=== PATIENT | male | born 1940 | race Caucasian/White ===

== ENCOUNTER 2018-09-22 05:51 | Emergency (ER) | payer MEDICARE, OTHER ==
[~2018-09-22] VITALS: Ht 172.7 cm; Wt 70.3 kg
--- OUTSIDE RECORDS SUMMARY | 2018-09-22 05:54 | XMS REPORT | Clinical Summary ---
Author Author [facility] Organization [facility] Address Unknown Phone Unavailable Care Team Providers Care Hospitality Services Manager Name Role Phone Asked, No Pcp PCP Unavailable Allergies No Known Allergies Medications No known medications Active Problems Problem Noted Date Chronic back pain greater than 3 months duration 12/15/2017 Encounters Care Team Description Date Type Specialty Matthew Milan III, MD Chronic back pain greater than 3 months duration (Primary Dx) 12/15/2017 Office Visit Orthopedic Surgery after 09/21/2017 Social History Date Tobacco Use Types Packs/Day Years Used Never Assessed Sex Assigned at Date Recorded Not on file Industry Job Start Date Occupation Not on file Not on file Not on file Travel End Travel History Travel Start No recent travel history available. Last Filed Vital Signs Time Taken Vital Sign Reading - Blood Pressure - - Pulse - - Temperature - - Respiratory Rate - - Oxygen Saturation - - Inhaled Oxygen - Concentration 12/15/2017 4:31 PM CDT Weight 67.1 kg (148 lb) 12/15/2017 4:31 PM CDT Height 172.7 cm (5' 8") 12/15/2017 4:31 PM CDT Body Mass Index 22.5 Plan of Treatment Health Maintenance Due Date Last Done Comments SHINGLES VACCINES (#1) 1992 65+ PNEUMOCOCCAL VACCINE 2007 06/02/2017 (2 of 2 - PPSV23) PNEUMOCOCCAL 2007 POLYSACCHARIDE VACCINE AGE 65 AND OVER INFLUENZA VACCINE 01/27/2018 Implants Device Identifier Shelf Expiration Date Model / Serial / Lot Implanted Type 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 er 10/26/2017 [id number] / / [id number] Device Vasclr Clsr Vasoactive Cardiovasc N/A: N/A Intstnl Peptd 6fr Angio-Seal - ular [id number] Implants Implanted: 03/20/2017 (Quantity not on file) [id number] / / Catheter Angiography Diag [facility] Surgical N/A: N/A 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 Ii 5fr 100cm - Implants; PERIPHERAL [id number] Expanders; INTERVENTI Implanted: 03/20/2017 (Quantity not Extenders; ON on file) Surgical VASCULAR Wires ERICA Procedures Comments Procedure Name Priority Date/Time Associated Diagnosis XR LUMBAR SPINE COMPLETE Routine 12/15/2017 Chronic back pain greater 4+ VW 4:52 PM CDT than 3 months duration after 09/21/2017 Results * XR Lumbar Spine Complete 4+ Vw (12/15/2017 4:52 PM CDT) Narrative Performed At [facility] Lumbar spine series with flexion-extension: There is now a grade 1- slip of L3 and L4 and loss of disc height 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 Performing Organization [facility] Phone Number [facility] [id number] [place] [address] after 09/21/2017 Insurance Payer Benefit Subscriber ID Type Phone Address Plan / Group UHC MEDICARE UHC xxxxxxxxx O MEDICARE HMO/PPO Advance Directives Patient has advance care planning documents on file. For more information, sam sandy contact: Jacek Duke [address] [place] [address]
--- OUTSIDE RECORDS SUMMARY | 2018-09-22 05:57 | XMS REPORT | Continuity of Care Document ---
Author Author [facility] Interface Address Unknown Phone Unavailable Problems Problem Status Onset Date Classification Date Reported Comments Source SLURRED SPEACH/PNEUMONIA Active 06/01/2017 [facility] FALL Active 06/01/2017 [facility] SYNCOPE AND COLLAPSE, TRANSIENT HYPOTENS Active 11/04/2016 [facility] SYNCOPE Active 11/04/2016 [facility] AMS Active 10/07/2016 [facility] CHANGE IN MENTAL STATUS, ACCIDENTAL OVER Active 10/07/2016 [facility] LOW BLOOD PRESSURE Active 09/15/2016 [facility] ATYPICAL SYNCOPE, UPPER GI BLEED Active 09/15/2016 [facility] RADICULOPATHY Active 10/17/2015 [facility] S06.5X0A - 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 [facility] Orthostatic hypotension<sup>8, 9</sup> Active 11/03/2014 Problem 08/30/2018 Data migrated from [employer] on 11/28/14. [facility] Dizziness<sup>6</sup> Active 05/09/2014 Problem 06/05/2017 Data migrated from [employer] on 11/25/14. [facility] Dizziness<sup>6</sup> Active 05/09/2014 Problem 08/30/2018 Data migrated from [employer] on 11/25/14. [facility] Cardiac pacemaker<sup>3</sup> Active 04/24/2014 Problem 06/05/2017 Data migrated from [employer] on 11/25/14. [facility] Chronic obstructive lung disease<sup>5</sup> Active 04/24/2014 Problem 06/05/2017 Data migrated from [employer] on 11/25/14. [facility] Cardiac pacemaker<sup>3</sup> Active 04/24/2014 Problem 08/30/2018 Data migrated from [employer] on 11/25/14. [facility] Chronic obstructive lung disease<sup>5</sup> Active 04/24/2014 Problem 08/30/2018 Data migrated from [employer] on 11/25/14. [facility] UNK Active 04/03/2014 [facility] V76.51 Active 04/03/2014 [facility] Benign prostatic hyperplasia<sup>2</sup> Active 11/25/2013 Problem 06/05/2017 Data migrated from [employer] on 11/25/14. [facility] Benign prostatic hyperplasia<sup>2</sup> Active 11/25/2013 Problem 08/30/2018 Data migrated from [employer] on 11/25/14. [facility] Anxiety disorder<sup>1</sup> Active 03/02/2013 Problem 06/05/2017 Data migrated from [employer] on 11/25/14. [facility] Osteoarthritis<sup>10</sup> Active 03/02/2013 Problem 06/05/2017 Data migrated from [employer] on 11/25/14. [facility] Anxiety disorder<sup>1</sup> Active 03/02/2013 Problem 08/30/2018 Data migrated from [employer] on 11/25/14. [facility] Osteoarthritis<sup>10</sup> Active 03/02/2013 Problem 08/30/2018 Data migrated from [employer] on 11/25/14. [facility] Chronic back pain<sup>4</sup> Active 06/29/1957 Problem 06/05/2017 Data migrated from [employer] on 11/25/14. [facility] Chronic back pain<sup>4</sup> Active 06/29/1957 Problem 08/30/2018 Data migrated from [employer] on 11/25/14. [facility] Cardiac pacemaker Resolved Problem 10/21/2015 [facility] COPD Resolved Problem 10/21/2015 [facility] Hyperlipidemia<sup>7</sup> Active Problem 10/21/2015 Data migrated from [employer] on 11/25/14. [facility] TIA Resolved Problem 10/21/2015 [facility] Anxiety Active Problem 04/16/2014 [facility] Arthritis Active Problem 04/16/2014 [facility] Asthma Resolved Problem 12/07/2016 [facility] CAD (<span ID="[id number]">Confirmed</span>) Active Problem 06/05/2017 [facility] Depression Active Problem 04/16/2014 [facility] Hypertension Active Problem 04/16/2014 [facility] Pacemaker Resolved Problem 12/07/2016 [facility] Acute bronchitis Active Problem 12/07/2016 [facility] Benign essential hypertension Active Problem 06/05/2017 [facility] Depression, major Active Problem 06/05/2017 [facility] Gastritis Active Problem 06/05/2017 [facility] Medicare annual wellness visit, subsequent Active Problem 06/05/2017 [facility] Prediabetes Active Problem 06/05/2017 [facility] S/P PTCA (<span ID="[id number]">Confirmed</span>) Active Problem 06/05/2017 [facility] Screening for prostate cancer Active Problem 06/05/2017 [facility] Sick sinus syndrome<sup>11</sup> Active Problem 06/05/2017 Data migrated from [employer] on 11/25/14. [facility] Diarrhea Active Problem 12/07/2016 [facility] Penile bleeding Active Problem 12/07/2016 [facility] Debility Active Problem 08/30/2018 [facility] Benign essential hypertension Active Problem 08/30/2018 [facility] CAD (<span ID="[id number]">Confirmed</span>) Active Problem 08/30/2018 [facility] Candidal intertrigo Active Problem 08/30/2018 [facility] Carotid stenosis Active Problem 08/30/2018 [facility] Depression, major Active Problem 08/30/2018 [facility] Gastritis Active Problem 08/30/2018 [facility] 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 Medicare annual wellness visit, subsequent Active Problem 08/30/2018 [facility], [facility] Mixed hyperlipidemia<sup>7</sup> Active Problem 08/30/2018 Data migrated from [employer] on 11/25/14. [facility] Encounter for immunization Active Problem 08/30/2018 [facility] Prediabetes Active Problem 08/30/2018 [facility] S/P PTCA (<span ID="[id number]">Confirmed</span>) Active Problem 08/30/2018 [facility] Screening for prostate cancer Active Problem 08/30/2018 [facility] Sick sinus syndrome<sup>11</sup> Active Problem 08/30/2018 Data migrated from [employer] on 11/25/14. [facility] Subcortical hemorrhage Resolved Problem 08/30/2018 [facility] Seborrheic dermatitis Active Problem 08/30/2018 [facility] Easy fatigability Active Problem 08/30/2018 [facility] COPD exacerbation Resolved Problem 12/07/2016 [facility] Anemia due to acute blood loss Active Problem 08/30/2018 [facility] Physical debility Active Problem 08/30/2018 [facility] Bilateral hearing loss Active Problem 08/30/2018 [facility] History of fall Active Problem 08/30/2018 [facility] Left shoulder pain Active Problem 08/30/2018 [facility] Tinnitus Active Problem 08/30/2018 [facility] Unsteady gait Active Problem 08/30/2018 [facility] UGIB (<span ID="[id number]">Confirmed</span>) Resolved Problem 08/30/2018 [facility] Blood vessel disorder Active Problem 08/30/2018 [facility] Vertigo Active Problem 08/30/2018 [facility] SCREEN MALIG NEOP-COLON Active [facility] PRE-OP EXAM NEC Active [facility] OTHER SPECIFIED CONGENITAL DEFORMITIES Active [facility] SYNCOPE AND COLLAPSE Active [facility] GASTROINTESTINAL HEMORRHAGE, UNSPECIFIED Active [facility] ALTERED MENTAL STATUS, UNSPECIFIED Active [facility] POISONING BY UNSP DRUG/MEDS/BIOL SUBST, Active [facility] MUSCLE SPASM OF BACK Active [facility] HYPOTENSION, UNSPECIFIED Active [facility] SLURRED SPEECH Active [facility] PNEUMONIA, UNSPECIFIED ORGANISM Active [facility] Medications Medication Details Route Status Patient Instructions Ordering Provider Order Date Source ALPRAZOLam 0.5 mg oral tablet, disintegrating 0.5 mg=1 tab, PO, BID, PRN for anxiety, # 60 tab, 0 Refill(s) Active 08/27/2018 [facility] tizanidine 2 mg oral tablet =1 tab, PO, TID, PRN Muscle Spasms, # 60 tab, 1 Refill(s), Pharmacy: [facility] [id number] Active 08/05/2018 Medical [facility] tizanidine 2 mg oral tablet 2 mg=1 tab, PO, BID, PRN for muscle spasms, # 60 tab, 0 Refill(s), Pharmacy: [facility] [id number] No Longer Active 02/10/2018 [facility] pravastatin 40 mg oral tablet 40 mg=1 tab, PO, Bedtime, # 90 tab, 1 Refill(s), Pharmacy: [facility] [id number] Active 01/17/2018 Medical [facility] ALPRAZOLam 0.5 mg oral tablet, disintegrating 0.5 mg=1 tab, PO, BID, PRN for anxiety, # 40 tab, 0 Refill(s) No Longer Active 01/12/2018 [facility] tiotropium 0.018 MG/ACTUAT Inhalant Powder [Spiriva] 18 microgram=1 cap, INHALATION, Daily, # 90 cap, 2 Refill(s), Pharmacy: [facility] [id number] Active 01/09/2018 [facility] tiotropium 0.018 MG/ACTUAT Inhalant Powder [Spiriva] 18 microgram=1 cap, INHALATION, Daily, X 90 day, # 90 cap, 2 Refill(s), Pharmacy: [facility] [id number] Inactive 01/09/2018 [facility] ALPRAZOLam 0.5 mg oral tablet, disintegrating 0.5 mg=1 tab, PO, BID, PRN for anxiety, # 40 tab, 0 Refill(s) Active 12/11/2017 [facility] Metoprolol Tartrate 50 mg oral tablet 50 mg=1 tab, PO, BID, # 180 tab, 2 Refill(s), Pharmacy: [facility] [id number] Active 10/30/2017 [facility] Furosemide 20 MG Oral Tablet 20 mg=1 tab, PO, Daily, # 90 tab, 1 Refill(s), Pharmacy: [facility] [id number] Active 10/06/2017 [facility] Nystatin 100 UNT/MG Topical Powder 1 appl, TOP, TID, # 60 gm, 1 Refill(s), Pharmacy: [facility] [id number] Active 10/06/2017 [facility] Hydrocortisone 25 MG/ML Topical Lotion 1 appl, TOP, BID, apply in a thin film to face and rub in gently and completely, # 120 mL, 1 Refill(s), Pharmacy: [facility] [id number] Active 10/06/2017 [facility] Hydrocortisone 25 MG/ML Topical Lotion 1 appl, TOP, BID, apply in a thin film to face and rub in gently and completely, # 60 ml, 0 Refill(s) Inactive 10/06/2017 [facility] Nystatin 100 UNT/MG Topical Powder 1 appl, TOP, TID, # 60 gm, 0 Refill(s) Active 10/06/2017 [facility] clopidogrel 75 mg oral tablet 75 mg=1 tab, PO, Daily, # 90 tab, 1 Refill(s), Pharmacy: [facility] [id number] Active 09/30/2017 [facility] Furosemide 20 MG Oral Tablet 20 mg=1 tab, PO, Daily, # 90 tab, 1 Refill(s), Pharmacy: [facility] [id number] Active 09/30/2017 [facility] Furosemide 20 MG Oral Tablet 20 mg, 1 tab, Route: PO, Drug form: TAB, Breakfast, Dosing Weight 73.545, kg, Start date: 06/03/17 10:50:00 [employer], Duration: 30 day, Stop date: 07/03/17 8:00:00 CSTNotes: (Same as: Lasix) May cause GI upset. Give with food or milk. No Longer Active 06/03/2017 [facility] tiotropium 0.018 MG/ACTUAT Inhalant Powder [Spiriva] 18 microgram, 1 inhalation, Route: INHALATION, Drug form: CAP, RDaily, Dosing Weight 73.545, kg, Start date: 06/03/17 8:00:00 [employer], Duration: 30 day, Stop date: 07/02/17 8:00:00 CSTNotes: (Same As: Spiriva). No Longer Active 06/03/2017 [facility] Pravastatin 40 mg, 2 tab, Route: PO, Drug form: TAB, Bedtime, Dosing Weight 73.545, kg, Start date: 06/02/17 21:00:00 [employer], Duration: 30 day, Stop date: 07/01/17 21:00:00 CSTNotes: (Same as: Pravachol) Inactive 06/03/2017 [facility] remove patch Route: MISC, Bedtime, Drug form: ERFILM, Start date: 06/02/17 21:00:00 [employer], Duration: 30 day, Stop date: 07/01/17 21:00:00 CSTNotes: Remove patch 12 hours after application each day. Inactive 06/03/2017 [facility] Ranitidine 150 MG Oral Tablet 150 mg, 1 tab, Route: PO, Drug form: TAB, BID, Dosing Weight 73.545, kg, Start date: 06/02/17 17:00:00 [employer], Duration: 30 day, Stop date: 07/02/17 9:00:00 [employer] Inactive 06/02/2017 [facility] pantoprazole 40 mg, 1 tab, Route: PO, Drug form: ECTAB, BID-Before Meals, Dosing Weight 73.545, kg, Start date: 06/02/17 16:30:00 [employer], Duration: 30 day, Stop date: 07/02/17 7:30:00 CSTNotes: Tablet should not be chewed or crushed. (Same as: Protonix) Inactive 06/02/2017 [facility] 120 ACTUAT Albuterol 0.1 MG/ACTUAT / Ipratropium [place] 0.02 MG/ACTUAT Metered Dose Inhaler [Combivent 20/100] 1 puff, Route: INHALATION, Drug Form: AERO, Dosing Weight 73.545, kg, RQID, Start date: 06/02/17 11:00:00 [employer], Duration: 30 day, Stop date: 07/02/17 7:00:00 CSTNotes: Same as: Combivent Respimat WASTE: Aerosol - Return to Pharmacy Inactive 06/02/2017 [facility] Lidocaine 0.05 MG/MG Transdermal Patch 1 patch, Route: TOP, Daily, Drug form: FILM, Start date: 06/02/17 10:53:00 [employer], Duration: 30 day, Stop date: 07/02/17 9:00:00 CSTNotes: Apply only once for up to 12 hours in a 24-hour period (12 hours on and 12 hours off). (Same as: Lidoderm) "Remove old patch before application of new patch" Inactive 06/02/2017 [facility] famotidine 20 mg, 1 tab, Route: PO, Drug form: TAB, Q12H, Start date: 06/02/17 10:52:00 [employer], Duration: 30 day, Stop date: 07/02/17 9:00:00 CSTNotes: (Same as: Pepcid) Inactive 06/02/2017 [facility] Lopressor 50 mg, 1 tab, Route: PO, Drug form: TAB, Q12H, Dosing Weight 73.545, kg, Start date: 06/02/17 10:50:00 [employer], Duration: 30 day, Stop date: 07/02/17 9:00:00 CSTNotes: (Same as: Lopressor) Inactive 06/02/2017 [facility] Cymbalta 60 mg, 2 cap, Route: PO, Drug form: DRC, BID, Dosing Weight 73.545, kg, Start date: 06/02/17 10:49:00 [employer], Duration: 30 day, Stop date: 07/02/17 9:00:00 CSTNotes: (Same as: Cymbalta) (Do Not Crush) Inactive 06/02/2017 [facility] clopidogrel 75 mg, 1 tab, Route: PO, Drug form: TAB, Daily, Dosing Weight 73.545, kg, Start date: 06/02/17 10:49:00 [employer], Duration: 30 day, Stop date: 07/02/17 9:00:00 CSTNotes: (Same As: Plavix) Inactive 06/02/2017 [facility] Rocephin 1 gm, Route: IVPB, ONCE, Dosing Weight 73.545, kg, Start date: 06/02/17 10:31:00 [employer], Stop date: 06/02/17 10:31:00 [employer], ABX Indication: PneumoniaNotes: (Same As: Rocephin). Use with 100 mL NS and infuse over 30 min MEDICATION WASTE Product Size: 1000 mg Product Wasted: ___ mg Inactive 06/02/2017 [facility] Cefuroxime 250 MG Oral Tablet [Ceftin] 250 mg=1 tab, PO, BID, X 10 day, # 20 tab, 0 Refill(s) Active 06/02/2017 [facility] aspirin 81 mg tablet, enteric coated 81 mg, 1 tab, Route: PO, Drug form: ECTAB, Daily, Dosing Weight 73.545, kg, Start date: 06/02/17 10:20:00 [employer], Duration: 30 day, Stop date: 07/02/17 9:00:00 CSTNotes: Do not crush or chew. (Same As: Ecotrin) Inactive 06/02/2017 [facility] Docusate Sodium 100 MG Oral Capsule 100 mg, 1 cap, Route: PO, Drug form: CAP, Daily, Dosing Weight 73.545, kg, PRN Constipation, Start date: 06/02/17 9:38:00 [employer], Duration: 30 day, Stop date: 07/02/17 9:37:00 CSTNotes: (Same as: Colace) (Do Not Crush) Inactive 06/02/2017 [facility] tizanidine 2 mg, 0.5 tab, Route: PO, Drug form: TAB, Q8H, Dosing Weight 73.545, kg, PRN Spasm, Start date: 06/02/17 9:38:00 [employer], Duration: 30 day, Stop date: 07/02/17 9:37:00 [employer], ..Notes: (Same As: Zanaflex) Inactive 06/02/2017 [facility] Acetaminophen 325 MG / Hydrocodone Bitartrate 10 MG Oral Tablet 1 tab, Route: PO, Drug Form: TAB, Dosing Weight 73.545, kg, Q6H, PRN Pain Score 4-6, Start date: 06/02/17 9:38:00 [employer], Duration: 30 day, Stop date: 07/02/17 9:37:00 CSTNotes: Do not exceed 4gm/day of acetaminophen. (Same as: [place] 325/10) Inactive 06/02/2017 [facility] Streptococcus pneumoniae serotype 1 capsular antigen diphtheria [id number] protein conjugate vaccine / Streptococcus pneumoniae serotype 14 capsular antigen diphtheria [id number] protein conjugate vaccine / Streptococcus pneumoniae serotype 18C capsular antigen d 0.5 mL, Route: IM, Drug Form: INJ, Daily, Start date: 06/02/17 9:00:00 [employer], Duration: 1 doses or times, Stop date: 06/02/17 9:00:00 CSTNotes: Shake well prior to use (Same as: Prevnar 13) Inactive 06/02/2017 [facility] Enoxaparin 40 mg, 0.4 mL, Route: SUB-Q, Drug form: INJ, [id number], Dosing Weight 73.545, kg, Start date: 06/01/17 21:00:00 [employer], Duration: 30 day, Stop date: 06/30/17 21:00:00 CSTNotes: (Same as: Lovenox) No Longer Active 06/02/2017 [facility] Docusate Sodium 100 MG Oral Capsule 100 mg=1 cap, PO, Daily, PRN Constipation, # 20 cap, 0 Refill(s) Active 06/02/2017 [facility] Saline Flush 0.9% 5 ml, Route: IVP, Drug Form: INJ, Dosing Weight 73.545, kg, PRN, PRN Line Flush, Start date: 06/01/17 20:01:00 [employer], Duration: 30 day, Stop date: 07/01/17 20:00:00 CSTNotes: (Same as: BD Posiflush) No Longer Active 06/02/2017 [facility] Potassium Chloride 40 mEq, 2 tab, Route: PO, Drug form: ERTAB, Q4H, Dosing Weight 73.545, kg, Priority: NOW, Start date: 06/01/17 18:07:00 [employer], Duration: 2 doses or times, Stop date: 06/01/17 22:00:00 CSTNotes: (Same as: K-Dur 20) "Do Not Crush" With food and full glass of water Inactive 06/02/2017 [facility] Azithromycin 500 mg, Route: IVPB, ONCE, Dosing Weight 79.545, kg, Priority: STAT, Start date: 06/01/17 13:06:00 [employer], Stop date: 06/01/17 13:06:00 [employer], ABX Indication: PneumoniaNotes: (Same As: Zithromax IV) Inactive 06/01/2017 [facility] Aspirin 324 mg, 4 tab, Route: CHEW, Drug form: CHEWTAB, ONCE, Dosing Weight 79.545, kg, Priority: STAT, Start date: 06/01/17 13:05:00 [employer], Stop date: 06/01/17 13:05:00 CSTNotes: Take with food. Inactive 06/01/2017 [facility] Saline Flush 0.9% 10 mL, Route: IVP, Drug Form: INJ, Dosing Weight 79.545, kg, PRN, PRN Line Flush, Start date: 06/01/17 10:05:00 [employer], Duration: 30 day, Stop date: 07/01/17 10:04:00 CSTNotes: (Same as: BD Posiflush) No Longer Active 06/01/2017 [facility] NS (Bolus) IV 500 mL, 500 ml/hr, Infuse Over: 1 hr, Route: IV, ONCE, Priority: STAT, Dosing Weight 79.545 kg, Start date: 06/01/17 10:01:00 [employer], Stop date: 06/01/17 10:01:00 [employer] Inactive 06/01/2017 [facility] Zofran 4 mg, Route: IVP, Drug form: INJ, ONCE, Dosing Weight 79.545, kg, Priority: STAT, Start date: 06/01/17 10:01:00 [employer], Stop date: 06/01/17 10:01:00 [employer] Inactive 06/01/2017 [facility] Morphine 4 mg, 2 mL, Route: IVP, Drug form: SOLN, ONCE, Dosing Weight 79.545, kg, Priority: STAT, Start date: 06/01/17 10:01:00 [employer]PH[employer]ERY [employer]CH[employer]IC, Stop date: 06/01/17 10:01:00 [employer] Inactive 06/01/2017 [facility] Magnesium Sulfate 2 gm, Route: IV, ONCE, Dosing Weight 79.545, kg, Priority: STAT, Start date: 06/01/17 10:01:00 [employer]PH[employer]ERY [employer]CH[employer]IC, Stop date: 06/01/17 10:01:00 [employer] Inactive 06/01/2017 [facility] Solu-Medrol 125 mg, Route: IVP, ONCE, Dosing Weight 79.545, kg, Priority: STAT, Start date: 06/01/17 10:00:00 [employer]PH[employer]ERY [employer], Stop date: 06/01/17 10:00:00 [employer] Inactive 06/01/2017 [facility] Albuterol 0.833 MG/ML / Ipratropium [place] 0.167 MG/ML Inhalant Solution [DuoNeb] 9 mL, Route: NEB, Dosing Weight 79.545, kg, ONCE, STAT, Start date: 06/01/17 10:00:00 [employer], Stop date: 06/01/17 10:00:00 [employer]ERY [employer] Inactive 06/01/2017 [facility] metoprolol tartrate 50 mg oral tablet 50 mg=1 tab, PO, Q12H, 0 Refill(s) Active 12/04/2016 [facility] clopidogrel 75 mg oral tablet 75 mg=1 tab, PO, Daily, 0 Refill(s) Active 12/04/2016 [facility] Kayexalate 30 gm, 120 mL, Route: PEG, Drug form: SUSP, ONCE, Dosing Weight 66.051, kg, Start date: 11/30/16 7:22:00 CDT, Stop date: 11/30/16 7:22:00 CDTNotes: (sodium polystyrene sulfonate 15 gm/60 ml RUSH) Shake well before use. (Same as: Kayexalate, SPS) Inactive 11/30/2016 [facility] Miralax 17 gm, 1 pkt, Route: PO, Drug form: PWDR, Daily, Dosing Weight 66.051, kg, Start date: 11/29/16 9:00:00 CDT, Duration: 30 day, Stop date: 12/28/16 9:00:00 CDTNotes: Dissolve in 8 oz of water or juice. (Same as: Miralax) Inactive 11/29/2016 [facility] Sodium Chloride 0.154 MEQ/ML Injectable Solution 250 mL, Rate: 50 ml/hr, Infuse over: 5 hr, Route: IV, Dosing Weight 66.051 kg, Total Volume: 250, Start date: 11/28/16 3:24:00 CDT, Duration: 30 day, Stop date: 12/28/16 3:23:00 CDT No Longer Active 11/28/2016 [facility] Miralax 17 gm, 1 pkt, Route: PEG, Drug form: PWDR, BID, Dosing Weight 66.051, kg, PRN Constipation, Start date: 11/27/16 19:26:00 CDT, Duration: 30 day, Stop date: 12/27/16 19:25:00 CDTNotes: Dissolve in 8 oz of water or juice. (Same as: Miralax) No Longer Active 11/28/2016 [facility] Lasix 40 mg, 4 mL, Route: IVP, Drug form: INJ, ONCE, Dosing Weight 66.051, kg, Start date: 11/27/16 19:09:00 CDT, Stop date: 11/27/16 19:09:00 CDTNotes: (Same as: Lasix) MEDICATION WASTE Product Size: 40 mg Product Wasted: ___ mg No Longer Active 11/28/2016 [facility] Potassium Chloride 1.33 MEQ/ML Oral Solution 40 mEq, 30 mL, Route: PO, Drug form: LIQ, ONCE, Dosing Weight 66.051, kg, Start date: 11/27/16 16:07:00 CDT, Stop date: 11/27/16 16:07:00 CDTNotes: (Same as: Potassium Chloride) Inactive 11/27/2016 [facility] Robitussin 200 mg, 10 mL, Route: PO, Drug Form: LIQ, Dosing Weight 66.051, kg, Q4H, PRN Cough, Start date: 11/26/16 22:54:00 CDT, Duration: 30 day, Stop date: 12/26/16 22:53:00 CDTNotes: (Same as: Robitussin) No Longer Active 11/27/2016 [facility] tizanidine 4 mg, 1 tab, Route: PO, Drug form: TAB, BID, Dosing Weight 66.051, kg, Start date: 11/25/16 17:00:00 CDT, Duration: 30 day, Stop date: 12/25/16 9:00:00 CDTNotes: (Same As: Zanaflex) No Longer Active 11/25/2016 [facility] Miralax 17 gm, 1 pkt, Route: PO, Drug form: PWDR, Daily, Dosing Weight 66.051, kg, PRN Constipation, Start date: 11/25/16 9:09:00 CDT, Duration: 30 day, Stop date: 12/25/16 9:08:00 CDTNotes: Dissolve in 8 oz of water or juice. (Same as: Miralax) No Longer Active 11/25/2016 [facility] Aspirin 81 MG Chewable Tablet 81 mg, 1 tab, Route: PO, Drug form: CHEWTAB, Daily, Dosing Weight 66.051, kg, Start date: 11/25/16 9:00:00 CDT, Duration: 30 day, Stop date: 12/24/16 9:00:00 CDTNotes: Take with food. No Longer Active 11/25/2016 [facility] Amlodipine 2.5 mg, 1 tab, Route: PO, Drug form: TAB, Daily, Dosing Weight 66.051, kg, Start date: 11/25/16 9:00:00 CDT, Duration: 30 day, Stop date: 12/24/16 9:00:00 CDTNotes: (Same as: Norvasc) Inactive 11/25/2016 [facility] Calcium Carbonate 500 MG Chewable Tablet 1,000 mg, 2 tab, Route: PO, Drug form: CHEWTAB, PRN, Dosing Weight 66.051, kg, PRN Abnormal Lab Result, FOR ICU USE ONLY, Start date: 11/25/16 9:00:00 CDT, Duration: 30 day, Stop date: 12/25/16 8:59:00 CDTNotes: (Same As: Tums) Calcium Carbonate 500 ux=308 mg elemental calcium Dose= mg calcium carbonate ( mg elemental calcium) No Longer Active 11/25/2016 [facility] sodium phosphate + D5W 240 mL 30 mmol, 10 mL, Route: IVPB, PRN, Dosing Weight 66.051, kg, PRN Abnormal Lab Result, Start date: 11/25/16 9:00:00 CDT, Duration: 30 day, Stop date: 12/25/16 8:59:00 CDT, FOR ICU USE ONLY No Longer Active 11/25/2016 [facility] sodium phosphate + D5W 245 mL 15 mmol, 5 mL, Route: IVPB, PRN, Dosing Weight 66.051, kg, PRN Abnormal Lab Result, Start date: 11/25/16 9:00:00 CDT, Duration: 30 day, Stop date: 12/25/16 8:59:00 CDT, FOR ICU USE ONLY No Longer Active 11/25/2016 [facility] Calcium Gluconate 1 gm, 10 mL, Route: IVPB, PRN, Dosing Weight 66.051, kg, PRN Abnormal Lab Result, Start date: 11/25/16 9:00:00 CDT, Duration: 30 day, Stop date: 12/25/16 8:59:00 CDT, FOR ICU USE ONLYNotes: WASTE: F/P - Sink; E - Municipal Trash Bin No Longer Active 11/25/2016 [facility] Magnesium Oxide 800 mg, 2 tab, Route: PO, Drug form: TAB, PRN, Dosing Weight 66.051, kg, PRN Abnormal Lab Result, FOR ICU USE ONLY, Start date: 11/25/16 9:00:00 CDT, Duration: 30 day, Stop date: 12/25/16 8:59:00 CDT Notes: (Same as: Mag-Ox 400) Magnesium oxide [id number] elemental magnesium Dose=____mg magnesium oxide (___mg elemental magnesium) No Longer Active 11/25/2016 [facility] Magnesium Sulfate 2 gm, 50 mL, Route: IVPB, Drug form: INJ, PRN, Dosing Weight 66.051, kg, PRN Abnormal Lab Result, Start date: 11/25/16 9:00:00 CDT, Duration: 30 day, Stop date: 12/25/16 8:59:00 CDT, FOR ICU USE ONLYNotes: WASTE: F/P - Sink; E - Municipal Trash Bin No Longer Active 11/25/2016 [facility] potassium phosphate-sodium phosphate 250 mg-280 mg-160 mg oral powder for reconstitution 2 pkt, Route: PO, Drug Form: PDR/REC, Dosing Weight 66.051, kg, PRN, PRN Abnormal Lab Result, FOR ICU USE ONLY, Start date: 11/25/16 9:00:00 CDT, Duration: 30 day, Stop date: 12/25/16 8:59:00 CDTNotes: (Same as: Phos-NaK) Each 1.5 gm pkt has 250mg phosphorous. Mix w/2.5oz water and stir. No Longer Active 11/25/2016 [facility] potassium phosphate + sodium chloride 0.9% INJ 235 mL 45 mmol, 15 mL, Route: IVPB, PRN, Dosing Weight 66.051, kg, PRN Abnormal Lab Result, Start date: 11/25/16 9:00:00 CDT, Duration: 30 day, Stop date: 12/25/16 8:59:00 CDT, FOR ICU USE ONLYNotes: (Same as: K Phosphate.) 1 mMol phoshate has 1.47 mEq potassium Infuse over 4 hours No Longer Active 11/25/2016 [facility] potassium phosphate + sodium chloride 0.9% INJ 240 mL 30 mmol, 10 mL, Route: IVPB, PRN, Dosing Weight 66.051, kg, PRN Abnormal Lab Result, Start date: 11/25/16 9:00:00 CDT, Duration: 30 day, Stop date: 12/25/16 8:59:00 CDT, FOR ICU USE ONLYNotes: (Same as: K Phosphate.) 1 mMol phoshate has 1.47 mEq potassium Infuse over 4 hours No Longer Active 11/25/2016 [facility] potassium phosphate + sodium chloride 0.9% INJ 245 mL 15 mmol, 5 mL, Route: IVPB, PRN, Dosing Weight 66.051, kg, PRN Abnormal Lab Result, Start date: 11/25/16 9:00:00 CDT, Duration: 30 day, Stop date: 12/25/16 8:59:00 CDT, FOR ICU USE ONLYNotes: (Same as: K Phosphate.) 1 mMol phoshate has 1.47 mEq potassium Infuse over 4 hours No Longer Active 11/25/2016 [facility] sodium phosphate + D5W 235 mL 45 mmol, 15 mL, Route: IVPB, PRN, Dosing Weight 66.051, kg, PRN Abnormal Lab Result, Start date: 11/25/16 9:00:00 CDT, Duration: 30 day, Stop date: 12/25/16 8:59:00 CDT, FOR ICU USE ONLY No Longer Active 11/25/2016 [facility] potassium chloride 20 mEq, 15 mL, Route: NJ, Drug form: LIQ, PRN, Dosing Weight 66.051, kg, PRN Abnormal Lab Result, Start date: 11/25/16 9:00:00 CDT, Duration: 30 day, Stop date: 12/25/16 8:59:00 CDT, FOR ICU USE ONLYNotes: (Same as: Potassium Chloride) No Longer Active 11/25/2016 [facility] Amlodipine 10 mg, Route: PO, Drug form: TAB, Daily, Dosing Weight 66.051, kg, Priority: NOW, Start date: 11/24/16 12:39:00 CDT, Duration: 30 day, Stop date: 12/24/16 9:00:00 CDT Inactive 11/24/2016 [facility] metoprolol tartrate 50 mg, 1 tab, Route: PO, Drug form: TAB, Q12H, Dosing Weight 66.051, kg, Priority: NOW, Start date: 11/24/16 12:39:00 CDT, Stop date: 12/24/16 9:00:00 CDTNotes: (Same as: Lopressor) No Longer Active 11/24/2016 [facility] esmolol 2,500 mg, 250 mL, Rate: Titrate, Start Dose: 50 microgram/kg/min, Titration: 50 microgram/kg/min every 15 minutes, Goal(s): Maintain SBP between 100-150 mmHg, Max Dose: 300 microgram/kg/min, Route: IV, Dosing Weight 66.051 kg, Total Volume: 250, Start...Notes: (Same as: Brevibloc) 10 mg/ml conc. No Longer Active 11/23/2016 [facility] Lasix 20 mg, 2 mL, Route: IVP, Drug form: INJ, ONCE, Dosing Weight 66.051, kg, Start date: 11/23/16 15:56:00 CDT, Stop date: 11/23/16 15:56:00 CDTNotes: (Same as: Lasix) Inactive 11/23/2016 [facility] Sodium Chloride 0.154 MEQ/ML Injectable Solution 1,000 mL, Rate: 25 ml/hr, Infuse over: 40 hr, Route: IV, Dosing Weight 66.051 kg, Total Volume: 1,000, Start date: 11/23/16 11:22:00 CDT, Duration: 30 day, Stop date: 12/23/16 11:21:00 CDT Inactive 11/23/2016 [facility] Ancef 2 gm, 100 mL, Route: IVPB, Drug form: INJ, ONCE, Dosing Weight 66.051, kg, Start date: 11/23/16 9:19:00 CDT, Duration: 1 doses or times, Stop date: 11/23/16 9:19:00 CDT, 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 (Same as: KCL) No Longer Active 11/22/2016 [facility] aspirin 300 mg rectal suppository 300 mg, 1 supp, Route: AR, Drug form: SUPP, Daily, Dosing Weight 66.051, kg, Priority: NOW, Start date: 11/21/16 16:48:00 CDT, Duration: 30 day, Stop date: 12/21/16 9:00:00 CDTNotes: Refrigerate. No Longer Active 11/21/2016 [facility] Versed 1 mg, Route: IVP, ONCE, Dosing Weight 66.051, kg, PRN Other -See Comment, Start date: 11/21/16 16:21:00 CDT Inactive 11/21/2016 [facility] Versed 1 mg, Route: IV, ONCE, Dosing Weight 66.051, kg, Priority: STAT, Start date: 11/21/16 14:46:00 CDT, Stop date: 11/21/16 14:46:00 CDT Inactive 11/21/2016 [facility] Versed 1 mg, Route: IV, ONCE, Dosing Weight 66.051, kg, Priority: STAT, Start date: 11/21/16 14:32:00 CDT, Stop date: 11/21/16 14:32:00 CDT Inactive 11/21/2016 [facility] Sodium Chloride 0.154 MEQ/ML Injectable Solution 2,000 mL, Rate: 100 ml/hr, Infuse over: 20 hr, Route: IV, Dosing Weight 66.051 kg, Total Volume: 2,000, Start date: 11/21/16 14:21:00 CDT, Duration: 1 doses or times, Stop date: 11/22/16 14:09:00 CDT No Longer Active 11/21/2016 [facility] potassium chloride 10 mEq, 100 mL, Route: IVPB, Drug form: INJ, Q1H, Start date: 11/21/16 14:00:00 CDT, Duration: 4 doses or times, Stop date: 11/21/16 17:00:00 CDTNotes: Infuse at a rate of 10 mEq/hr. (Same as: KCL) Inactive 11/21/2016 [facility] Hydralazine 10 mg, 0.5 mL, Route: IV, Drug form: INJ, Q6H, Dosing Weight 66.051, kg, Priority: NOW, Start date: 11/21/16 12:20:00 CDT, Duration: 30 day, Stop date: 12/21/16 12:00:00 CDTNotes: (Same as: Apresoline) Push over 5 minutes No Longer Active 11/21/2016 [facility] Metoprolol 5 mg, 5 mL, Route: IVP, Drug form: INJ, Q6H, Dosing Weight 66.051, kg, Priority: NOW, Start date: 11/21/16 12:19:00 CDT, Stop date: 12/21/16 12:00:00 CDTNotes: (Same as: Lopressor) Push over 2 minutes No Longer Active 11/21/2016 [facility] Aspirin 300 MG Rectal Suppository 300 mg, 1 supp, Route: AR, Drug form: SUPP, Daily, Dosing Weight 66.051, kg, Priority: NOW, Start date: 11/21/16 12:18:00 CDT, Duration: 30 day, Stop date: 12/21/16 9:00:00 CDTNotes: Refrigerate. Inactive 11/21/2016 [facility] potassium chloride 40 mEq, 2 tab, Route: PO, Drug form: ERTAB, Q4H, Dosing Weight 66.051, kg, Priority: NOW, Start date: 11/20/16 10:02:00 CDT, Duration: 2 doses or times, Stop date: 11/20/16 14:00:00 CDTNotes: (Same as: K-Dur 20) "Do Not Crush" With food and full glass of water Inactive 11/20/2016 [facility] Amlodipine 2.5 mg, 1 tab, Route: PO, Drug form: TAB, Daily, Dosing Weight 66.051, kg, Start date: 11/20/16 9:00:00 CDT, Duration: 30 day, Stop date: 12/19/16 9:00:00 CDTNotes: (Same as: Norvasc) No Longer Active 11/20/2016 [facility] Ativan 1 mg, 0.5 mL, Route: IM, Drug form: INJ, ONCE, Dosing Weight 66.051, kg, Priority: STAT, Start date: 11/18/16 23:26:00 CDT, Stop date: 11/18/16 23:26:00 CDTNotes: (Same as: Ativan) Inactive 11/19/2016 [facility] heparin 5,000 unit, 1 mL, Route: SUB-Q, Drug form: INJ, Q12H, Dosing Weight 66.051, kg, Start date: 11/17/16 21:00:00 CDT, Duration: 30 day, Stop date: 12/17/16 9:00:00 CDTNotes: porcine heparin No Longer Active 11/18/2016 [facility] Fentanyl 50 microgram, 1 mL, Route: IVP, Drug form: INJ, ONCE, Dosing Weight 66.051, kg, Start date: 11/17/16 15:13:00 CDT, Stop date: 11/17/16 15:13:00 CDTNotes: (Same as: Sublimaze) Preservative free. Inactive 11/17/2016 [facility] labetalol (ANES) Route: IV, Drug form: INJ, ONCE, Stop date: 11/17/16 14:23:00 CDT Inactive 11/17/2016 [facility] dexamethasone (ANES) Route: IV, Drug form: INJ, ONCE, Stop date: 11/17/16 14:08:00 CDT Inactive 11/17/2016 [facility] ondansetron (ANES) Route: IV, Drug form: INJ, ONCE, Stop date: 11/17/16 14:08:00 CDT Inactive 11/17/2016 [facility] neostigmine (ANES) Route: IV, Drug form: INJ, ONCE, Stop date: 11/17/16 14:08:00 CDT Inactive 11/17/2016 [facility] glycopyrrolate (ANES) Route: IV, Drug form: INJ, ONCE, Stop date: 11/17/16 14:08:00 CDT Inactive 11/17/2016 [facility] Hydromorphone 0.75 mg, 0.75 mL, Route: IV, Drug form: INJ, Q3H, Dosing Weight 66.051, kg, PRN Pain Score 7-10, Start date: 11/17/16 13:56:00 CDT, Stop date: 12/17/16 13:55:00 CDT No Longer Active 11/17/2016 [facility] sodium chloride 0.9% 1000 ml INJ 1,000 mL 1,000 mL, Rate: 75 ml/hr, Infuse over: 13.3 hr, Route: IV, Dosing Weight 66.051 kg, Total Volume: 1,000, Start date: 11/17/16 13:56:00 CDT, Stop date: 12/17/16 13:55:00 CDT No Longer Active 11/17/2016 [facility] Acetaminophen 325 MG / Hydrocodone Bitartrate 10 MG Oral Tablet 2 tab, Route: PO, Drug Form: TAB, Dosing Weight 66.051, kg, Q4H, PRN Pain Score 7-10, Start date: 11/17/16 13:56:00 CDT, Duration: 30 day, Stop date: 12/17/16 13:55:00 CDTNotes: Do not exceed 4gm/day of acetaminophen. (Same as: [place] 325/10) No Longer Active 11/17/2016 [facility] Acetaminophen 325 MG / Hydrocodone Bitartrate 5 MG Oral Tablet 1 tab, Route: PO, Drug Form: TAB, Dosing Weight 66.051, kg, Q4H, PRN Pain Score 4-6, Start date: 11/17/16 13:56:00 CDT, Duration: 30 day, Stop date: 12/17/16 13:55:00 CDTNotes: (Same as: [place] 325/5) Do not exceed 4gm/day of acetaminophen. No Longer Active 11/17/2016 [facility] acetaminophen (ANES) (ANES) Route: IV, Drug form: INJ, Start date: 11/17/16 13:27:00 CDT, Stop date: 11/17/16 14:27:00 CDT Inactive 11/17/2016 [facility] protamine (ANES) (ANES) Route: IV, Drug form: INJ, Start date: 11/17/16 13:20:00 CDT, Stop date: 11/17/16 14:20:00 CDT Inactive 11/17/2016 [facility] heparin (ANES) Route: IV, Drug form: INJ, ONCE, Stop date: 11/17/16 12:55:00 CDT Inactive 11/17/2016 [facility] rocuronium (ANES) Route: IV, Drug form: INJ, ONCE, Stop date: 11/17/16 12:55:00 CDT Inactive 11/17/2016 [facility] norepinephrine (ANES) Route: IV, Drug form: INJ, ONCE, Stop date: 11/17/16 12:55:00 CDT Inactive 11/17/2016 [facility] metoclopramide (ANES) Route: IV, Drug form: INJ, ONCE, Stop date: 11/17/16 12:50:00 CDT Inactive 11/17/2016 [facility] fentaNYL (ANES) Route: IV, Drug form: INJ, ONCE, Stop date: 11/17/16 12:50:00 CDT Inactive 11/17/2016 [facility] propofol (ANES) Route: IV, Drug form: INJ, ONCE, Stop date: 11/17/16 12:50:00 CDT Inactive 11/17/2016 [facility] Amidate (ANES) Route: IV, Drug form: INJ, ONCE, Stop date: 11/17/16 12:50:00 CDT Inactive 11/17/2016 [facility] lidocaine (ANES) Route: IV, Drug form: INJ, ONCE, Stop date: 11/17/16 12:50:00 CDT Inactive 11/17/2016 [facility] ceFAZolin (ANES) (ANES) Route: IV, Drug form: INJ, Start date: 11/17/16 11:56:00 CDT, Stop date: 11/17/16 12:56:00 CDT Inactive 11/17/2016 [facility] sodium chloride 0.9% 1000 ml INJ (ANES) Route: IV, Total Volume: 1,000, Start date: 11/17/16 11:56:00 CDT, Stop date: 11/17/16 12:56:00 CDT Inactive 11/17/2016 [facility] LR 1000 mL INJ (ANES) Route: IV, Total Volume: 1,000, Start date: 11/17/16 11:32:00 CDT, Stop date: 11/17/16 12:32:00 CDT Inactive 11/17/2016 [facility] potassium chloride 40 mEq, 2 tab, Route: PO, Drug form: ERTAB, Q4Hnow, Dosing Weight 66.051, kg, Priority: NOW, Start date: 11/15/16 15:32:00 CDT, Duration: 2 doses or times, Stop date: 11/15/16 20:00:00 CDT Inactive 11/15/2016 [facility] potassium chloride 40 mEq, 2 tab, Route: PO, Drug form: ERTAB, ONCE, Dosing Weight 66.051, kg, Start date: 11/14/16 15:08:00 CDT, Stop date: 11/14/16 15:08:00 CDTNotes: (Same as: K-Dur 20) "Do Not Crush" With food and full glass of water Inactive 11/14/2016 [facility] Amoxicillin 875 MG / Clavulanate 125 MG Oral Tablet [Augmentin 875-mg] 1 tab, Route: PO, Drug Form: TAB, Dosing Weight 66.051, kg, [id number], Start date: 11/13/16 20:00:00 CDT, Duration: 30 day, Stop date: 12/13/16 8:00:00 CDTNotes: With food. (Same as: Augmentin 875) No Longer Active 11/14/2016 [facility] Alprazolam 0.25 MG Oral Tablet [Xanax] 0.25 mg, 1 tab, Route: PO, Drug form: TAB, Q6H, Dosing Weight 66.051, kg, PRN Anxiety, Start date: 11/13/16 11:49:00 CDT, Duration: 30 day, Stop date: 12/13/16 11:48:00 CDTNotes: With food or milk (Same as: Xanax) No Longer Active 11/13/2016 [facility] gabapentin 300 MG Oral Capsule 300 mg, 1 cap, Route: PO, Drug form: CAP, Q12H, Dosing Weight 66.051, kg, (CrCl 30 - 59 ml/min), Start date: 11/12/16 21:00:00 CDT, Duration: 30 day, Stop date: 12/12/16 9:00:00 CDTNotes: (Same as: Neurontin) No Longer Active 11/13/2016 [facility] sodium chloride 0.9% 1000 ml INJ 1,000 mL 1,000 mL, Rate: 100 ml/hr, Infuse over: 10 hr, Route: IV, Dosing Weight 65.909 kg, Total Volume: 1,000, Start date: 11/10/16 16:36:00 CDT, Duration: 30 day, Stop date: 12/10/16 16:35:00 CDT No Longer Active 11/10/2016 [facility] Zosyn 3.375 gm, Route: IVPB, [id number], Dosing Weight 65.909, kg, CrCl >=20 ml/min infuse over 4 hours, Start date: 11/10/16 15:00:00 CDT, Duration: 30 day, Stop date: 12/10/16 7:00:00 CDTNotes: (Same as: Zosyn) Dosing based on Piperacillin component MEDICATION WASTE Product Size: 3375 mg Product Wasted: ___ mg No Longer Active 11/10/2016 [facility] potassium chloride 40 mEq, 2 tab, Route: PO, Drug form: ERTAB, Q4Hnow, Dosing Weight 65.909, kg, Priority: NOW, Start date: 11/10/16 9:00:00 CDT, Duration: 2 doses or times, Stop date: 11/10/16 13:00:00 CDT Inactive 11/10/2016 [facility] Clonidine Hydrochloride 0.1 MG Oral Tablet 0.1 mg, 1 tab, Route: PO, Drug form: TAB, Q4H, Dosing Weight 65.909, kg, PRN Elevated BP, Start date: 11/09/16 11:39:00 CDT, Duration: 30 day, Stop date: 12/09/16 11:38:00 CDT, systolic BP > 170Notes: (Same As: Catapres) No Longer Active 11/09/2016 [facility] Plavix 75 mg, 1 tab, Route: PO, Drug form: TAB, Daily, Dosing Weight 65.909, kg, Start date: 11/09/16 9:00:00 CDT, Duration: 30 day, Stop date: 01/07/17 9:00:00 CDTNotes: (Same As: Plavix) No Longer Active 11/09/2016 [facility] Hydralazine 10 mg, 0.5 mL, Route: IV, Drug form: INJ, Q6H, Dosing Weight 65.909, kg, PRN Elevated BP, Start date: 11/07/16 13:43:00 CDT, Duration: 30 day, Stop date: 12/07/16 13:42:00 CDT, for SBP greater than 170m mhgNotes: (Same as: Apresoline) Push over 5 minutes No Longer Active 11/07/2016 [facility] Lidocaine 0.05 MG/MG Transdermal Patch 1 patch, Route: TOP, Daily, Drug form: FILM, Start date: 11/07/16 9:00:00 CDT, Duration: 30 day, Stop date: 01/05/17 9:00:00 CDT No Longer Active 11/07/2016 [facility] Clonidine Hydrochloride 0.1 MG Oral Tablet 0.1 mg, 1 tab, Route: PO, Drug form: TAB, Q4H, Dosing Weight 65.909, kg, PRN Elevated BP, Start date: 11/07/16 4:48:00 CDT, Duration: 30 day, Stop date: 12/07/16 4:47:00 CDT, SBP> 170Notes: (Same As: Catapres) Inactive 11/07/2016 [facility] Lidocaine 0.05 MG/MG Transdermal Patch 1 patch, Route: TOP, Daily, Drug form: FILM, Start date: 11/06/16 9:00:00 CDT, Duration: 30 day, Stop date: 12/05/16 9:00:00 CDT No Longer Active 11/06/2016 [facility] remove patch 1 patch, Route: TOP, Bedtime, Drug form: ERFILM, Start date: 11/05/16 21:00:00 CDT, Duration: 30 day, Stop date: 01/03/17 21:00:00 CDTNotes: Remove patch 12 hours after application each day. No Longer Active 11/06/2016 [facility] Pravastatin 40 mg, 2 tab, Route: PO, Drug form: TAB, Bedtime, Dosing Weight 65.909, kg, Start date: 11/05/16 21:00:00 CDT, Duration: 30 day, Stop date: 01/03/17 21:00:00 CDTNotes: (Same as: Pravachol) No Longer Active 11/06/2016 [facility] Acetaminophen 325 MG / Hydrocodone Bitartrate 5 MG Oral Tablet [[place] 5/325] 1 tab, Route: PO, Drug Form: TAB, Dosing Weight 65.909, kg, Q6H, PRN Pain Score 6-10, NOW, Start date: 11/05/16 20:33:00 CDT, Duration: 30 day, Stop date: 12/05/16 20:32:00 CDTNotes: (Same as: [place] 325/5) Do not exceed 4gm/day of acetaminophen. No Longer Active 11/06/2016 [facility] Ranitidine 150 MG Oral Tablet 150 mg, 1 tab, Route: PO, Drug form: TAB, BID, Dosing Weight 65.909, kg, Start date: 11/05/16 17:00:00 CDT, Duration: 30 day, Stop date: 12/05/16 9:00:00 CDT Inactive 11/05/2016 [facility] 120 ACTUAT Albuterol 0.1 MG/ACTUAT / Ipratropium [place] 0.02 MG/ACTUAT Metered Dose Inhaler [Combivent 20/100] 1 puff, Route: INHALATION, Drug Form: AERO, Dosing Weight 65.909, kg, QID, Start date: 11/05/16 13:00:00 CDT, Duration: 30 day, Stop date: 12/05/16 9:00:00 CDTNotes: Same as: Combivent Respimat WASTE: Aerosol - Return to Pharmacy No Longer Active 11/05/2016 [facility] famotidine 20 mg, 1 tab, Route: PO, Drug form: TAB, BID, Start date: 11/05/16 10:00:00 CDT, Duration: 30 day, Stop date: 01/04/17 9:00:00 CDTNotes: (Same as: Pepcid) No Longer Active 11/05/2016 [facility] tiotropium 0.018 MG/ACTUAT Inhalant Powder [Spiriva] 18 microgram, 1 inhalation, Route: INHALATION, Drug form: CAP, Daily, Dosing Weight 65.909, kg, Start date: 11/05/16 10:00:00 CDT, Duration: 30 day, Stop date: 01/04/17 9:00:00 CDTNotes: (Same As: Spiriva). No Longer Active 11/05/2016 [facility] Furosemide 20 MG Oral Tablet 20 mg, 1 tab, Route: PO, Drug form: TAB, Daily, Dosing Weight 65.909, kg, Start date: 11/05/16 10:00:00 CDT, Duration: 30 day, Stop date: 01/04/17 9:00:00 CDTNotes: (Same as: Lasix) May cause GI upset. Give with food or milk. No Longer Active 11/05/2016 [facility] Cymbalta 60 mg, 2 cap, Route: PO, Drug form: DRC, BID, Dosing Weight 65.909, kg, Start date: 11/05/16 10:00:00 CDT, Duration: 30 day, Stop date: 01/04/17 9:00:00 CDTNotes: (Same as: Cymbalta) (Do Not Crush) No Longer Active 11/05/2016 [facility] aspirin 81 mg tablet, enteric coated 81 mg, 1 tab, Route: PO, Drug form: ECTAB, Daily, Dosing Weight 65.909, kg, Start date: 11/05/16 10:00:00 CDT, Duration: 30 day, Stop date: 12/05/16 9:00:00 CDTNotes: Do not crush or chew. (Same As: Ecotrin) No Longer Active 11/05/2016 [facility] Lidocaine Hydrochloride 0.05 MG/MG Transdermal Patch [Lidoderm] 1 patch, Route: TOP, Daily, Drug form: FILM, Start date: 11/05/16 9:00:00 CDT, Duration: 30 day, Stop date: 12/04/16 9:00:00 CDT, Remove after 12 hoursNotes: Apply only once for up to 12 hours in a 24-hour period (12 hours on and 12 hours off). (Same as: Lidoderm) "Remove old patch before application of new patch" No Longer Active 11/05/2016 [facility] Acetaminophen 650 mg, 2 tab, Route: PO, Drug form: TAB, Q4H, Dosing Weight 65.909, kg, PRN Pain 1-3/Temp > 100.4 F, Start date: 11/05/16 1:10:00 CDT, Duration: 30 day, Stop date: 01/04/17 1:09:00 CDTNotes: Do not exceed 4 gm/day. (Same as: Tylenol) No Longer Active 11/05/2016 [facility] Ondansetron 4 mg, 2 mL, Route: IVP, Drug form: INJ, Q6H, Dosing Weight 65.909, kg, PRN Nausea & Vomiting, Start date: 11/05/16 1:10:00 CDT, Duration: 30 day, Stop date: 01/04/17 1:09:00 CDTNotes: (Same as: Carl) MEDICATION WASTE Product Size: 4 mg Product Wasted: ___ mg No Longer Active 11/05/2016 [facility] Sodium Chloride 0.154 MEQ/ML Injectable Solution 500 mL, 500 ml/hr, Infuse Over: 1 hr, Route: IV, ONCE, Priority: STAT, Dosing Weight 68.182 kg, Start date: 11/04/16 20:22:00 CDT, Duration: 1 doses or times, Stop date: 11/04/16 20:22:00 CDT Inactive 11/05/2016 [facility] aspirin 81 mg tablet, enteric coated 81 mg, 1 tab, Route: PO, Drug form: ECTAB, Daily, Dosing Weight 81.818, kg, Start date: 10/09/16 9:00:00 CDT, Duration: 30 day, Stop date: 11/07/16 9:00:00 CDTNotes: Do not crush or chew. (Same As: Ecotrin) Inactive 10/09/2016 [facility] tiotropium 0.018 MG/ACTUAT Inhalant Powder [Spiriva] 18 microgram, 1 inhalation, Route: INHALATION, Drug form: CAP, Daily, Dosing Weight 81.818, kg, Start date: 10/09/16 9:00:00 CDT, Duration: 30 day, Stop date: 11/07/16 9:00:00 CDTNotes: (Same As: Spiriva). Inactive 10/09/2016 [facility] Cialis 5 mg, Route: PO, Drug form: TAB, Daily, Dosing Weight 81.818, kg, Start date: 10/09/16 9:00:00 CDT, Duration: 30 day, Stop date: 11/07/16 9:00:00 CDT Inactive 10/09/2016 [facility] Furosemide 20 MG Oral Tablet 20 mg, 1 tab, Route: PO, Drug form: TAB, Daily, Dosing Weight 81.818, kg, Start date: 10/09/16 9:00:00 CDT, Duration: 30 day, Stop date: 11/07/16 9:00:00 CDTNotes: (Same as: Lasix) May cause GI upset. Give with food or milk. Inactive 10/09/2016 [facility] remove patch 1 patch, Route: TOP, Q24H, Drug form: ERFILM, Start date: 10/09/16 0:00:00 CDT, Duration: 30 day, Stop date: 11/07/16 0:00:00 CDT Inactive 10/09/2016 [facility] Pravastatin 40 mg, 2 tab, Route: PO, Drug form: TAB, Bedtime, Dosing Weight 81.818, kg, Start date: 10/08/16 21:00:00 CDT, Duration: 30 day, Stop date: 11/06/16 21:00:00 CDTNotes: (Same as: Pravachol) No Longer Active 10/09/2016 [facility] Cymbalta 60 mg, 2 cap, Route: PO, Drug form: DRC, BID, Dosing Weight 81.818, kg, Start date: 10/08/16 21:00:00 CDT, Duration: 30 day, Stop date: 11/07/16 9:00:00 CDTNotes: (Same as: Cymbalta) (Do Not Crush) No Longer Active 10/09/2016 [facility] famotidine 20 mg, 1 tab, Route: PO, Drug form: TAB, Q12H, Start date: 10/08/16 21:00:00 CDT, Duration: 30 day, Stop date: 11/07/16 9:00:00 CDTNotes: (Same as: Pepcid) No Longer Active 10/09/2016 [facility] Ranitidine 150 MG Oral Tablet 150 mg, 1 tab, Route: PO, Drug form: TAB, BID, Dosing Weight 81.818, kg, Start date: 10/08/16 17:00:00 CDT, Duration: 30 day, Stop date: 11/07/16 9:00:00 CDT Inactive 10/08/2016 [facility] 24 HR Niacin 500 MG Extended Release Tablet [Niaspan] 500 mg, 2 cap, Route: PO, Drug form: ERCAP, Dinner, Dosing Weight 81.818, kg, Start date: 10/08/16 17:00:00 CDT, Duration: 30 day, Stop date: 11/06/16 17:00:00 CDTNotes: With food. No Longer Active 10/08/2016 [facility] bioflavonoids 500 mg, Route: PO, Drug form: CAP, BID, Dosing Weight 81.818, kg, Start date: 10/08/16 17:00:00 CDT, Duration: 30 day, Stop date: 11/07/16 9:00:00 CDT No Longer Active 10/08/2016 [facility] 120 ACTUAT Albuterol 0.1 MG/ACTUAT / Ipratropium [place] 0.02 MG/ACTUAT Metered Dose Inhaler [Combivent 20/100] 1 puff, Route: INHALATION, Drug Form: AERO, Dosing Weight 81.818, kg, RQID, Start date: 10/08/16 15:00:00 CDT, Duration: 30 day, Stop date: 11/07/16 11:00:00 CDTNotes: Same as: Combivent Respimat WASTE: Aerosol - Return to Pharmacy No Longer Active 10/08/2016 [facility] *NURSE please bring home meds (2 meds) to Pharmacy for label *NURSE please bring home meds (2 meds) to Pharmacy for label, 1, Drug form: MISC, Route: MISC, TID, 10/08/16 15:00:00 CDT, Duration: 30 day, Stop date: 11/07/16 9:00:00 CDT No Longer Active 10/08/2016 [facility] Lidocaine 0.05 MG/MG Transdermal Patch 1 patch, Route: TOP, Q24H, Drug form: FILM, Start date: 10/08/16 12:00:00 CDT, Duration: 30 day, Stop date: 11/06/16 12:00:00 CDT No Longer Active 10/08/2016 [facility] potassium chloride 40 mEq, 2 tab, Route: PO, Drug form: ERTAB, Q4H, Dosing Weight 81.818, kg, Priority: NOW, Start date: 10/08/16 11:21:00 CDT, Duration: 2 doses or times, Stop date: 10/08/16 16:00:00 CDTNotes: (Same as: K-Dur 20) "Do Not Crush" With food and full glass of water Inactive 10/08/2016 [facility] K-Dur 20 40 mEq, 2 tab, Route: PO, Drug form: ERTAB, ONCE, Dosing Weight 81.818, kg, Start date: 10/08/16 6:44:00 CDT, Stop date: 10/08/16 6:44:00 CDTNotes: (Same as: K-Dur 20) "Do Not Crush" With food and full glass of water Inactive 10/08/2016 [facility] Enoxaparin 30 mg, 0.3 mL, Route: SUB-Q, Drug form: INJ, [id number], Dosing Weight 81.818, kg, Start date: 10/08/16 2:00:00 CDT, Duration: 30 day, Stop date: 11/06/16 14:00:00 CDTNotes: (Same as: Lovenox) No Longer Active 10/08/2016 [facility] Ondansetron 4 mg, 2 mL, Route: IVP, Drug form: INJ, Q6H, Dosing Weight 81.818, kg, PRN Nausea & Vomiting, Start date: 10/08/16 1:11:00 CDT, Duration: 30 day, Stop date: 11/07/16 1:10:00 CDTNotes: (Same as: Zofran) MEDICATION WASTE Product Size: 4 mg Product Wasted: ___ mg No Longer Active 10/08/2016 [facility] Saline Flush 0.9% 10 ml, Route: IVP, Drug Form: INJ, Dosing Weight 81.818, kg, PRN, PRN Line Flush, Start date: 10/08/16 1:11:00 CDT, Duration: 30 day, Stop date: 11/07/16 1:10:00 CDTNotes: (Same as: BD Posiflush) No Longer Active 10/08/2016 [facility] Sodium Chloride 0.0769 MEQ/ML Injectable Solution 1,000 mL, Rate: 75 ml/hr, Infuse over: 13.3 hr, Route: IV, Dosing Weight 81.818 kg, Total Volume: 1,000, Start date: 10/08/16 1:11:00 CDT, Duration: 30 day, Stop date: 11/07/16 1:10:00 CDT No Longer Active 10/08/2016 [facility] Clonidine 0.1 mg, Route: PO, Drug form: TAB, ONCE, Dosing Weight 81.818, kg, Start date: 10/07/16 23:22:00 CDT, Stop date: 10/07/16 23:22:00 CDT Inactive 10/08/2016 [facility] Naloxone 2 mg, Route: IVP, Drug form: INJ, ONCE, Dosing Weight 81.818, kg, Priority: STAT, Start date: 10/07/16 22:38:00 CDT, Stop date: 10/07/16 22:38:00 CDT Inactive 10/08/2016 [facility] Naloxone 4 mg, 4 mL, Route: IV, Drug form: INJ, ONCE, Dosing Weight 81.818, kg, Priority: STAT, Start date: 10/07/16 19:24:00 CDT, Stop date: 10/07/16 19:24:00 CDTNotes: (Same as: Narcan) MEDICATION WASTE Product Size: 2 mg Product Wasted: ___ mg Inactive 10/08/2016 [facility] Sodium Chloride 0.154 MEQ/ML Injectable Solution 1,000 mL, 1000 ml/hr, Infuse Over: 1 hr, Route: IV, 1,000, Drug form: INJ, ONCE, Priority: STAT, Dosing Weight 81.818 kg, Start date: 10/07/16 19:18:00 CDT, Duration: 1 doses or times, Stop date: 10/07/16 19:18:00 CDT Inactive 10/08/2016 [facility] Saline Flush 0.9% 10 mL, Route: IVP, Drug Form: INJ, Dosing Weight 81.818, kg, PRN, PRN Line Flush, Start date: 10/07/16 19:18:00 CDT, Duration: 30 day, Stop date: 11/06/16 19:17:00 CDTNotes: (Same as: BD Posiflush) No Longer Active 10/08/2016 [facility] Acetaminophen 325 MG / Hydrocodone Bitartrate 10 MG Oral Tablet 1 tab, Route: PO, Drug Form: TAB, Dosing Weight 81.818, kg, Q6H, PRN Pain Score 7-10, Start date: 09/16/16 9:50:00 CDT, Duration: 30 day, Stop date: 10/16/16 9:49:00 CDT, back painNotes: Do not exceed 4gm/day of acetaminophen. (Same as: [place] 325/10) Inactive 09/16/2016 [facility] tiotropium 0.018 MG/ACTUAT Inhalant Powder [Spiriva] 18 microgram, 1 inhalation, Route: INHALATION, Drug form: CAP, Daily, Dosing Weight 81.818, kg, Start date: 09/16/16 9:00:00 CDT, Duration: 30 day, Stop date: 10/15/16 9:00:00 CDTNotes: (Same As: Spiriva). Inactive 09/16/2016 [facility] Ranitidine 150 MG Oral Tablet 150 mg, 1 tab, Route: PO, Drug form: TAB, BID, Dosing Weight 81.818, kg, Start date: 09/16/16 9:00:00 CDT, Duration: 30 day, Stop date: 10/15/16 17:00:00 CDT No Longer Active 09/16/2016 [facility] Furosemide 20 MG Oral Tablet 20 mg, 1 tab, Route: PO, Drug form: TAB, Daily, Dosing Weight 81.818, kg, Start date: 09/16/16 9:00:00 CDT, Duration: 30 day, Stop date: 10/15/16 9:00:00 CDTNotes: (Same as: Lasix) May cause GI upset. Give with food or milk. Inactive 09/16/2016 [facility] Cymbalta 60 mg, 2 cap, Route: PO, Drug form: DRC, BID, Dosing Weight 81.818, kg, Start date: 09/16/16 9:00:00 CDT, Duration: 30 day, Stop date: 10/15/16 17:00:00 CDTNotes: (Same as: Cymbalta) (Do Not Crush) Inactive 09/16/2016 [facility] aspirin 81 mg tablet, enteric coated 81 mg, 1 tab, Route: PO, Drug form: ECTAB, Daily, Dosing Weight 81.818, kg, Start date: 09/16/16 9:00:00 CDT, Duration: 30 day, Stop date: 10/15/16 9:00:00 CDTNotes: Do not crush or chew. (Same As: Ecotrin) Inactive 09/16/2016 [facility] Pravastatin 40 mg, 2 tab, Route: PO, Drug form: TAB, Bedtime, Dosing Weight 81.818, kg, Start date: 09/15/16 21:00:00 CDT, Duration: 30 day, Stop date: 10/14/16 21:00:00 CDTNotes: (Same as: Pravachol) No Longer Active 09/16/2016 [facility] 120 ACTUAT Albuterol 0.1 MG/ACTUAT / Ipratropium [place] 0.02 MG/ACTUAT Metered Dose Inhaler [Combivent 20/100] 1 puff, Route: INHALATION, Drug Form: AERO, Dosing Weight 81.818, kg, QID, Start date: 09/15/16 21:00:00 CDT, Duration: 30 day, Stop date: 10/15/16 17:00:00 CDTNotes: Same as: Combivent Respimat WASTE: Aerosol - Return to Pharmacy No Longer Active 09/16/2016 [facility] famotidine 20 mg, 1 tab, Route: PO, Drug form: TAB, Q12H, Start date: 09/15/16 21:00:00 CDT, Duration: 30 day, Stop date: 10/15/16 9:00:00 CDTNotes: (Same as: Pepcid) No Longer Active 09/16/2016 [facility] Trazodone 25 mg, 0.5 tab, Route: PO, Drug form: TAB, Bedtime, Dosing Weight 81.818, kg, PRN Sleep, Start date: 09/15/16 20:03:00 CDT, Duration: 30 day, Stop date: 10/15/16 20:02:00 CDT, ..Notes: (Same As: Desyrel) No Longer Active 09/16/2016 [facility] Protonix 80 mg, Route: IVP, Drug form: INJ, ONCE, Dosing Weight 81.818, kg, Priority: STAT, Start date: 09/15/16 11:38:00 CDT, Stop date: 09/15/16 11:38:00 CDTNotes: For IV push reconstitute with 10 ml 0.9% sodi um chloride and push over 2 minutes. (Same as: Protonix) Inactive 09/15/2016 [facility] Sodium Chloride 0.154 MEQ/ML Injectable Solution 500 mL, 500 ml/hr, Infuse Over: 1 hr, Route: IV, 500, Drug form: INJ, ONCE, Priority: STAT, Dosing Weight 81.818 kg, Start date: 09/15/16 11:38:00 CDT, Duration: 1 doses or times, Stop date: 09/15/16 11:38:00 CDT Inactive 09/15/2016 [facility] Levetiracetam 500 MG Oral Tablet 500 mg=1 tab, PO, Q12H, # 12 tab, 0 Refill(s) Active 09/23/2015 [facility] Cymbalta 60 mg, 2 cap, Route: PO, Drug form: DRC, Daily, Dosing Weight 79, kg, Start date: 09/23/15 9:00:00, Duration: 30 day, Stop date: 10/22/15 9:00:00Notes: (Same as: Cymbalta) (Do Not Crush) Inactive 09/23/2015 [facility] Pepcid 20 mg, 1 tab, Route: PO, Drug form: TAB, Daily, Start date: 09/23/15 9:00:00, Duration: 30 day, Stop date: 10/22/15 9:00:00Notes: (Same as: Pepcid) Inactive 09/23/2015 [facility] Ranitidine 150 MG Oral Capsule 150 mg, 1 cap, Route: PO, Q12H, Dosing Weight 79, kg, Start date: 09/23/15 9:00:00, Duration: 30 day, Stop date: 10/22/15 21:00:00 No Longer Active 09/23/2015 [facility] Furosemide 20 MG Oral Tablet [Lasix] 20 mg, 1 tab, Route: PO, Drug form: TAB, Daily, Dosing Weight 79, kg, Start date: 09/23/15 9:00:00, Duration: 30 day, Stop date: 10/22/15 9:00:00Notes: (Same as: Lasix) May cause GI upset. Give with food or milk. Inactive 09/23/2015 [facility] heparin sodium, porcine 2500 UNT/ML Injectable Solution 5,000 unit, 1 mL, Route: SUB-Q, Drug form: INJ, Q8H, Dosing Weight 79, kg, Start date: 09/23/15 8:00:00, Duration: 30 day, Stop date: 10/23/15 0:00:00Notes: porcine heparin Inactive 09/23/2015 [facility] Alprazolam 0.5 MG Oral Tablet 0.5 mg, 1 tab, Route: PO, Drug form: TAB, TID, Dosing Weight 79, kg, PRN as needed for anxiety, Start date: 09/22/15 21:59:00, Duration: 30 day, Stop date: 10/22/15 21:58:00Notes: With food or milk (Same as: Xanax) No Longer Active 09/23/2015 [facility] cyclobenzaprine 10 mg, 1 tab, Route: PO, Drug form: TAB, Q8H, Dosing Weight 79, kg, PRN Spasm, Priority: NOW, Start date: 09/22/15 21:58:00, Duration: 30 day, Stop date: 10/22/15 21:57:00Notes: (Same As: Flexeril) No Longer Active 09/23/2015 [facility] tramadol hydrochloride 50 MG Oral Tablet 50 mg, 1 tab, Route: PO, Drug form: TAB, Q6H, Dosing Weight 79, kg, PRN Pain Score 1-3, Start date: 09/22/15 21:57:00, Duration: 30 day, Stop date: 10/22/15 21:56:00Notes: Not to exceed 400mg/day. (Same As: Ultram) No Longer Active 09/23/2015 [facility] Ranitidine 150 mg, 10 mL, Route: PO, Drug form: SYRP, Q12H, Dosing Weight 79, kg, Start date: 09/22/15 21:00:00, Duration: 30 day, Stop date: 10/22/15 9:00:00Notes: (Same as:Zantac) Non-Formulary Item Take before or with meals Inactive 09/23/2015 [facility] Acetaminophen 325 MG / Hydrocodone Bitartrate 10 MG Oral Tablet [[place] 10/325] 1 tab, Route: PO, Drug Form: TAB, Dosing Weight 79.545, kg, Q6H, PRN Pain Score 4-6, Start date: 09/22/15 19:22:00, Duration: 30 day, Stop date: 10/22/15 19:21:00Notes: Do not exceed 4gm/day of acetaminophen. (Same as: [place] 325/10) No Longer Active 09/23/2015 [facility] Ondansetron 4 mg, Route: IVP, Drug form: INJ, ONCE, Dosing Weight 79.545, kg, Start date: 09/22/15 13:40:00, Stop date: 09/22/15 13:40:00 Inactive 09/22/2015 [facility] Morphine 4 mg, Route: IVP, ONCE, Dosing Weight 79.545, kg, Start date: 09/22/15 13:40:00, Stop date: 09/22/15 13:40:00 Inactive 09/22/2015 [facility] Saline Flush 0.9% 10 ml, Route: IVP, Drug Form: INJ, Dosing Weight 79.545, kg, Q12H, Start date: 09/22/15 9:00:00, Duration: 30 day, Stop date: 10/21/15 21:00:00Notes: (Same as: BD Posiflush) No Longer Active 09/22/2015 [facility] sennosides, CORRECTION 8.6 mg, 1 tab, Route: PO, Drug Form: TAB, Dosing Weight 79.545, kg, Q12H, Start date: 09/22/15 9:00:00, Duration: 30 day, Stop date: 10/21/15 21:00:00Notes: (Same as: Senokot) No Longer Active 09/22/2015 [facility] Docusate 100 mg, 1 cap, Route: PO, Drug form: CAP, Q12H, Dosing Weight 79.545, kg, Start date: 09/22/15 9:00:00, Duration: 30 day, Stop date: 10/21/15 21:00:00Notes: (Same as: Colace) (Do Not Crush) No Longer Active 09/22/2015 [facility] Levetiracetam 500 mg, 1 tab, Route: PO, Drug form: TAB, Q12H, Dosing Weight 79.545, kg, Start date: 09/22/15 9:00:00, Duration: 30 day, Stop date: 10/21/15 21:00:00Notes: (Same as:Keppra) No Longer Active 09/22/2015 [facility] Ofirmev 1,000 mg, Route: IV, Drug form: INJ, ONCE, Dosing Weight 79.545, kg, PRN Pain Score 1-3, for > or=50 kg, Start date: 09/22/15 8:30:00 Inactive 09/22/2015 [facility] Hydralazine 10 mg, 0.5 mL, Route: IVP, Drug form: INJ, Q4H, Dosing Weight 79.545, kg, PRN Hypertension, For SBP>150, Start date: 09/22/15 8:18:00, Duration: 30 day, Stop date: 10/22/15 8:17:00Notes: (Same as: Apresoline) Push over 5 minutes No Longer Active 09/22/2015 [facility] Labetalol 20 mg, 4 mL, Route: IVP, Drug form: INJ, Q15Min, Dosing Weight 79.545, kg, PRN Hypertension, please hold for heart rate less than 65, Start date: 09/22/15 8:17:00, Duration: 30 day, Stop date: 10/22/15 8:16:00 No Longer Active 09/22/2015 [facility] Saline Flush 0.9% 10 ml, Route: IVP, Drug Form: INJ, Dosing Weight 79.545, kg, PRN, PRN Line Flush, Start date: 09/22/15 1:46:00, Duration: 30 day, Stop date: 10/22/15 1:45:00Notes: (Same as: BD Posiflush) No Longer Active 09/22/2015 [facility] Ondansetron 4 mg, 2 mL, Route: IVP, Drug form: INJ, Q8H, Dosing Weight 79.545, kg, PRN Nausea & Vomiting, Start date: 09/22/15 1:46:00, Duration: 30 day, Stop date: 10/22/15 1:45:00Notes: (Same as: Zofran) MEDICATION WASTE Product Size: 4 mg Product Wasted: ___ mg No Longer Active 09/22/2015 [facility] Levetiracetam 1,000 mg, Route: IVPB, ONCE, Dosing Weight 79.545, kg, Start date: 09/22/15 1:46:00, Stop date: 09/22/15 1:46:00Notes: Same as Keppra Mix with 100 mL NS, LR or D5W MEDICATION WASTE Product Size: 500 mg Product Wasted: ___ mg Inactive 09/22/2015 [facility] Acetaminophen 650 mg, 2 tab, Route: PO, Drug form: TAB, Q4H, Dosing Weight 79.545, kg, PRN Pain 1-3/Temp > 99.5 F, Start date: 09/22/15 1:46:00, Duration: 30 day, Stop date: 10/22/15 1:45:00Notes: Do not exceed 4 gm/day. (Same as: Tylenol) No Longer Active 09/22/2015 [facility] Acetaminophen 325 MG / Hydrocodone Bitartrate 10 MG Oral Tablet 1 tab, Route: PO, Dosing Weight 79.545, kg, ONCE, STAT, Start date: 09/22/15 1:10:00, Stop date: 09/22/15 1:10:00 Inactive 09/22/2015 [facility] Morphine 4 mg, Route: IVP, ONCE, Dosing Weight 79.545, kg, Start date: 09/22/15 0:07:00, Stop date: 09/22/15 0:07:00 Inactive 09/22/2015 [facility] Acetaminophen 325 MG / Hydrocodone Bitartrate 10 MG Oral Tablet [[place] 10/325] 1 tab, Route: PO, Drug Form: TAB, Dosing Weight 81.818, kg, ONCE, STAT, Start date: 09/21/15 18:15:00, Stop date: 09/21/15 18:15:00Notes: Do not exceed 4gm/day of acetaminophen. (Same as: [place] 325/10) Inactive 09/21/2015 [facility] Labetalol 20 mg, Route: IVP, Drug form: INJ, ONCE, Dosing Weight 81.818, kg, Priority: STAT, Start date: 09/21/15 17:57:00, Stop date: 09/21/15 17:57:00 Inactive 09/21/2015 [facility] docosahexaenoic acid 200 MG / Eicosapentaenoic Acid 300 MG / Vitamin E 1 UNT Oral Capsule 0 Refill(s) Active 04/14/2014 [facility] Calcium 600 +D oral tablet 0 Refill(s) Active 04/14/2014 [facility] Limbrel 500 mg oral capsule 0 Refill(s) Active 04/14/2014 [facility] tadalafil 5 MG Oral Tablet [Cialis] 5 mg=1 tab, PO, Daily, for erectile dysfunction, 0 Refill(s) Active 04/14/2014 [facility] aspirin 325 mg tablet 0 Refill(s) Active 04/14/2014 [facility] Ascorbic Acid / Biotin / Folic Acid / Niacin / pantothenate / pyridoxine / Riboflavin / Thiamine / Vitamin B 12 0 Refill(s) Active 04/14/2014 [facility] acetaminophen-codeine #4 1 tab, PO, Q4H, PRN Pain, 0 Refill(s) Active 04/14/2014 [facility] tamsulosin 0.4 mg oral capsule 0.4 mg=1 cap, PO, Daily, # 30 cap, 0 Refill(s) Active 04/14/2014 [facility] pravastatin 40 mg oral tablet 40 mg=1 tab, PO, Bedtime, # 30 tab, 0 Refill(s) Active 04/14/2014 [facility] ALPRAZOLam 0.5 mg oral tablet, disintegrating 0.5 mg=1 tab, PO, TID, for anxiety, 0 Refill(s) Active 04/14/2014 [facility] cyclobenzaprine 10 mg oral tablet 0 Refill(s) Active 04/14/2014 [facility] Furosemide 20 MG Oral Tablet 0 Refill(s) Active 04/14/2014 [facility] Potassium Chloride 20 MEQ Extended Release Tablet 0 Refill(s) Active 04/14/2014 [facility] duloxetine 60 MG Enteric Coated Capsule [Cymbalta] 60 mg=1 cap, PO, Daily, # 30 cap, 0 Refill(s) Active 04/14/2014 [facility] Ranitidine 150 MG Oral Capsule 150 mg=1 cap, PO, BID, # 60 cap, 0 Refill(s) Active 04/14/2014 [facility] nebivolol 20 MG Oral Tablet [Bystolic] 0 Refill(s) Active 04/14/2014 [facility] 200 ACTUAT Albuterol 0.09 MG/ACTUAT / Ipratropium [place] 0.018 MG/ACTUAT Metered Dose Inhaler [Combivent] 2 puff, INHALER, QID, # 14 gm, 0 Refill(s) Active 04/14/2014 [facility] Sodium Chloride 0.154 MEQ/ML Injectable Solution 1,000 mL, Rate: 25 ml/hr, Infuse over: 40 hr, Route: IV, Dosing Weight 75.909 kg, Total Volume: 1,000, Start date: 04/14/14 7:59:00, Duration: 30 day, Stop date: 05/14/14 7:58:00 Inactive 04/14/2014 [facility] Alprazolam 0 Refill(s) No Longer Active 04/10/2014 [facility] Aspirin 81 MG Enteric Coated Tablet 81 mg=1 tab, PO, Daily, # 0 tab, 0 Refill(s) No Longer Active 04/10/2014 [facility] Cialis 0 Refill(s) No Longer Active 04/10/2014 [facility] Potassium Chloride 0 Refill(s) No Longer Active 04/10/2014 [facility] Furosemide 40 MG Oral Tablet 40 mg=1 tab, PO, Daily, # 30 tab, 0 Refill(s) No Longer Active 04/10/2014 [facility] Albuterol 0.09 MG/ACTUAT Inhalant Solution 1 puff, INHALATION, QID, wheezing, # 1 ea, 0 Refill(s) No Longer Active 04/10/2014 [facility] Allergies, Adverse Reactions, Alerts Substance Category Reaction Severity Reaction type Status Date Reported Comments Source Immunizations Immunization Date Given Site Status Last Updated Comments Source influenza virus vaccine, inactivated<sup>1</sup> 05/05/2018 Left Deltoid completed [facility] Result Comment: Patient waited 15 min with no reaction. [facility] pneumococcal 13-valent vaccine 06/02/2017 Right Deltoid completed [facility] influenza virus vaccine, inactivated<sup>1</sup> 04/28/2017 Left Deltoid completed [facility] Result Comment: Patient waited 15 min with no reaction. [facility] influenza virus vaccine, inactivated<sup>2</sup> 04/28/2017 Left Deltoid completed [facility] Result Comment: Patient waited 15 min with no reaction. [facility] influenza virus vaccine, inactivated 03/17/2016 Left Deltoid completed [facility] Hx influenza vaccine-unspecified<sup>1</sup> 04/24/2014 completed GE Result Comment: done high dose. Migrated from OBS ; Data migrated from [employer] on 07/31/2015. [facility] Hx influenza vaccine-unspecified<sup>3</sup> 04/24/2014 completed GE Result Comment: done high dose. Migrated from OBS ; Data migrated from [employer] on 07/31/2015. [facility] Hx influenza vaccine-unspecified<sup>4</sup> 04/24/2014 completed GE Result Comment: done high dose. Migrated from OBS ; Data migrated from [employer] on 07/31/2015. [facility] influenza virus vaccine, inactivated<sup>2</sup> 04/24/2014 Right Deltoid completed [facility] Result Comment: fluzone high dose [[id number]]. Migrated from OBS ; Data migrated from [employer] on 07/31/2015. [facility] influenza virus vaccine, inactivated<sup>2</sup> 04/24/2014 Right Deltoid completed GE Result Comment: fluzone high dose [[id number]]. Migrated from OBS ; Data migrated from [employer] on 07/31/2015. [facility] influenza virus vaccine, inactivated<sup>3</sup> 04/24/2014 Right Deltoid completed GE Result Comment: fluzone high dose [[id number]]. Migrated from OBS ; Data migrated from [employer] on 07/31/2015. [facility] pneumococcal 23-valent vaccine<sup>3</sup> 11/11/2013 Right Deltoid completed [facility] Result Comment: pneumovax 23 [cvx33]. Migrated from OBS VIS: Pneumovax 23: 04/03/09 ; Data migrated from [employer] on 07/31/2015. [facility] pneumococcal 23-valent vaccine<sup>4</sup> 11/11/2013 Right Deltoid completed GE Result Comment: pneumovax 23 [cvx33]. Migrated from OBS VIS: Pneumovax 23: 04/03/09 ; Data migrated from [employer] on 07/31/2015. [facility] pneumococcal 23-valent vaccine<sup>5</sup> 11/11/2013 Right Deltoid completed GE Result Comment: pneumovax 23 [cvx33]. Migrated from OBS VIS: Pneumovax 23: 04/03/09 ; Data migrated from [employer] on 07/31/2015. Medical [facility] Results Order Name Results Value Reference Range Date Interpretation Comments Source DRUG SCREEN U Methadone Scr Negative *NA* (06/02/17 8:00 AM) Negative 06/02/2017 [facility] DRUG SCREEN U Phencyc Scr Negative *NA* (06/02/17 8:00 AM) Negative 06/02/2017 [facility] DRUG SCREEN UDS Note See Note (06/02/17 8:00 AM) 06/02/2017 [facility] DRUG SCREEN U Propoxyph Scr Negative *NA* (06/02/17 8:00 AM) Negative 06/02/2017 [facility] DRUG SCREEN U Amph Scr Negative *NA* (06/02/17 8:00 AM) Negative 06/02/2017 [facility] DRUG SCREEN U Cocaine Scr Negative *NA* (06/02/17 8:00 AM) Negative 06/02/2017 [facility] DRUG SCREEN U Danae Scr Negative *NA* (06/02/17 8:00 AM) Negative 06/02/2017 [facility] DRUG SCREEN U Benzodia Scr Negative *NA* (06/02/17 8:00 AM) Negative 06/02/2017 [facility] DRUG SCREEN U Cannab Scr Negative *NA* (06/02/17 8:00 AM) Negative 06/02/2017 [facility] DRUG SCREEN U Opiate Scr Positive *ABN* (06/02/17 8:00 AM) Negative 06/02/2017 [facility] URINE AND STOOL UA RBC 3 /HPF 0 - 2 06/02/2017 [facility] URINE AND STOOL UA Bacteria Occasional /HPF None Seen /HPF 06/02/2017 [facility] URINE AND STOOL UA Amorph [place] Occasional /HPF None Seen /HPF 06/02/2017 [facility] URINE AND STOOL UA Mucus Few /LPF None Seen /LPF 06/02/2017 [facility] URINE AND STOOL UA WBC null 0 - 5 06/02/2017 [facility] URINE AND STOOL UA Leuk Est Negative (06/02/17 8:00 AM) Negative 06/02/2017 [facility] URINE AND STOOL UA Urobilinogen 1.0 EU/dL 0.1 - 1.0 06/02/2017 [facility] URINE AND STOOL UA Nitrite Negative (06/02/17 8:00 AM) Negative 06/02/2017 [facility] URINE AND STOOL UA Bili Negative *NA* (06/02/17 8:00 AM) Negative 06/02/2017 [facility] URINE AND STOOL UA Ketones Negative *NA* (06/02/17 8:00 AM) Negative 06/02/2017 [facility] URINE AND STOOL UA Blood Negative (06/02/17 8:00 AM) Negative 06/02/2017 [facility] URINE AND STOOL UA Glucose Negative (06/02/17 8:00 AM) Negative 06/02/2017 [facility] URINE AND STOOL UA Protein Negative (06/02/17 8:00 AM) Negative 06/02/2017 [facility] URINE AND STOOL UA Color Yellow *NA* (06/02/17 8:00 AM) Yellow 06/02/2017 [facility] URINE AND STOOL UA Spec Grav 1.020 <=1.030 06/02/2017 [facility] URINE AND STOOL UA Turbidity Clear (06/02/17 8:00 AM) Clear 06/02/2017 [facility] URINE AND STOOL UA pH 6.0 5.0 - 8.0 06/02/2017 [facility] URINE AND STOOL UA Sq Epi None Seen (06/02/17 8:00 AM) Few 06/02/2017 [facility] ANEMIA STUDY Vitamin B12 Lvl 456 pg/mL 254 - 1320 06/02/2017 [facility] CHEM PANEL eGFR 83 mL/min/1.73m2 06/02/2017 Result Comment: The eGFR is calculated using the CKD-EPI formula. In most young, healthy individuals the eGFR will be >90 mL/min/1.73m2. The eGFR declines with age. An eGFR of 60-89 may be normal in some populations, particularly the elderly, for whom the CKD-EPI formula has not been extensively validated. Use of the eGFR is not recommended in the following populations: Individuals with unstable creatinine concentrations, including patients and those with serious co-morbid conditions. Patients with extremes in muscle mass or diet. The data above are obtained from the National Kidney Disease Education Program (NKDEP) which additionally recommends that when the eGFR is used in patients with extremes of body mass index for purposes of drug dosing, the eGFR should be multiplied by the estimated BMI. [facility] CHEM PANEL Total Protein 6.6 g/dL 6.4 - 8.4 06/02/2017 [facility] CHEM PANEL B/C Ratio 24 6 - 25 06/02/2017 [facility] CHEM PANEL AGAP 15.9 meq/L 10.0 - 20.0 06/02/2017 [facility] CHEM PANEL CO2 26 meq/L 24 - 32 06/02/2017 [facility] CHEM PANEL Calcium Lvl 8.6 mg/dL 8.5 - 10.5 06/02/2017 [facility] CHEM PANEL A/G Ratio 1.0 0.7 - 1.6 06/02/2017 [facility] CHEM PANEL Albumin Lvl 3.3 g/dL 3.5 - 5.0 06/02/2017 [facility] CHEM PANEL Globulin 3.3 g/dL 2.7 - 4.2 06/02/2017 [facility] CHEM PANEL ALT 21 unit/L 0 - 65 06/02/2017 [facility] CHEM PANEL Alk Phos 87 unit/L 39 - 136 06/02/2017 [facility] CHEM PANEL Bili Total 0.5 mg/dL 0.2 - 1.3 06/02/2017 [facility] CHEM PANEL AST 13 unit/L 0 - 37 06/02/2017 [facility] CHEM PANEL Glucose Lvl 108 mg/dL 70 - 99 06/02/2017 [facility] CHEM PANEL Chloride Lvl 104 meq/L 95 - 109 06/02/2017 [facility] CHEM PANEL Potassium Lvl 4.9 meq/L 3.5 - 5.1 06/02/2017 [facility] CHEM PANEL Sodium Lvl 141 meq/L 135 - 145 06/02/2017 [facility] CHEM PANEL Creatinine Lvl 0.90 mg/dL 0.50 - 1.40 06/02/2017 [facility] CHEM PANEL BUN 22 mg/dL 7 - 22 06/02/2017 [facility] HEMATOLOGY Hct 38.3 % 42.0 - 54.0 06/02/2017 [facility] HEMATOLOGY RBC 4.39 M/CMM 4.70 - 6.10 06/02/2017 [facility] HEMATOLOGY Hgb 12.8 g/dL 14.0 - 18.0 06/02/2017 [facility] HEMATOLOGY MCV 87.1 fL 80.0 - 94.0 06/02/2017 [facility] HEMATOLOGY MPV 9.1 fL 7.4 - 10.4 06/02/2017 [facility] HEMATOLOGY RDW 15.6 % 11.5 - 14.5 06/02/2017 [facility] HEMATOLOGY WBC 14.2 K/CMM 3.7 - 10.4 06/02/2017 [facility] MCHC 33.5 g/dL 32.0 - 36.0 06/02/2017 [facility] MCH 29.2 pg 27.0 - 31.0 06/02/2017 [facility] HEMATOLOGY Platelet 257 K/CMM 133 - 450 06/02/2017 [facility] HEMATOLOGY Monocytes # 0.8 K/CMM 0.0 - 0.8 06/02/2017 [facility] HEMATOLOGY Lymphocytes # 1.5 K/CMM 1.0 - 5.5 06/02/2017 [facility] HEMATOLOGY Segs-Bands # 11.8 K/CMM 1.5 - 8.1 06/02/2017 [facility] HEMATOLOGY Basophils 0.2 % 0.0 - 1.0 06/02/2017 [facility] HEMATOLOGY Monocytes 5.9 % 2.0 - 12.0 06/02/2017 [facility] HEMATOLOGY Lymphocytes 10.7 % 20.0 - 40.0 06/02/2017 [facility] HEMATOLOGY Segs 83.2 % 45.0 - 75.0 06/02/2017 [facility] CHEM PANEL Lactic Acid Lvl 1.2 mMol/L 0.5 - 2.2 06/01/2017 [facility] CARDIAC ENZYMES CK MB 3.4 ng/mL 0.5 - 3.6 06/01/2017 [facility] CARDIAC ENZYMES Total CK 96 unit/L 12 - 191 06/01/2017 [facility] CARDIAC ENZYMES BNP 488 pg/mL <=100 pg/mL 06/01/2017 [facility] CARDIAC ENZYMES Troponin-I 0.03 ng/mL 0.00 - 0.40 06/01/2017 [facility] CARDIAC ENZYMES CK MB Index 3.5 0.0 - 2.5 06/01/2017 [facility] CHEM PANEL Lactic Acid Lvl 1.9 mMol/L 0.5 - 2.2 06/01/2017 [facility] CHEM PANEL eGFR 51 mL/min/1.73m2 06/01/2017 Result Comment: The eGFR is calculated using the CKD-EPI formula. In most young, healthy individuals the eGFR will be >90 mL/min/1.73m2. The eGFR declines with age. An eGFR of 60-89 may be normal in some populations, particularly the elderly, for whom the CKD-EPI formula has not been extensively validated. Use of the eGFR is not recommended in the following populations: Individuals with unstable creatinine concentrations, including patients and those with serious co-morbid conditions. Patients with extremes in muscle mass or diet. The data above are obtained from the National Kidney Disease Education Program (NKDEP) which additionally recommends that when the eGFR is used in patients with extremes of body mass index for purposes of drug dosing, the eGFR should be multiplied by the estimated BMI. [facility] CHEM PANEL Creatinine Lvl 1.36 mg/dL 0.50 - 1.40 06/01/2017 [facility] CHEM PANEL BUN 23 mg/dL 7 - 22 06/01/2017 [facility] CHEM PANEL Sodium Lvl 137 meq/L 135 - 145 06/01/2017 [facility] CHEM PANEL Potassium Lvl 3.5 meq/L 3.5 - 5.1 06/01/2017 [facility] CHEM PANEL Glucose Lvl 118 mg/dL 70 - 99 06/01/2017 [facility] CHEM PANEL AST 13 unit/L 0 - 37 06/01/2017 [facility] CHEM PANEL Alk Phos 87 unit/L 39 - 136 06/01/2017 [facility] CHEM PANEL Calcium Lvl 8.4 mg/dL 8.5 - 10.5 06/01/2017 [facility] CHEM PANEL CO2 27 meq/L 24 - 32 06/01/2017 [facility] CHEM PANEL Bili Total 0.4 mg/dL 0.2 - 1.3 06/01/2017 [facility] CHEM PANEL ALT 18 unit/L 0 - 65 06/01/2017 [facility] CHEM PANEL Albumin Lvl 3.3 g/dL 3.5 - 5.0 06/01/2017 [facility] CHEM PANEL Chloride Lvl 101 meq/L 95 - 109 06/01/2017 [facility] CHEM PANEL Total Protein 6.8 g/dL 6.4 - 8.4 06/01/2017 [facility] CHEM PANEL A/G Ratio 0.9 0.7 - 1.6 06/01/2017 [facility] CHEM PANEL Globulin 3.5 g/dL 2.7 - 4.2 06/01/2017 [facility] CHEM PANEL B/C Ratio 17 6 - 25 06/01/2017 [facility] CHEM PANEL AGAP 12.5 meq/L 10.0 - 20.0 06/01/2017 [facility] HEMATOLOGY MPV 8.6 fL 7.4 - 10.4 06/01/2017 [facility] HEMATOLOGY MCH 28.6 pg 27.0 - 31.0 06/01/2017 [facility] HEMATOLOGY RDW 15.6 % 11.5 - 14.5 06/01/2017 [facility] HEMATOLOGY MCHC 33.2 g/dL 32.0 - 36.0 06/01/2017 [facility] HEMATOLOGY Platelet 263 K/CMM 133 - 450 06/01/2017 [facility] HEMATOLOGY Hgb 13.5 g/dL 14.0 - 18.0 06/01/2017 [facility] HEMATOLOGY Hct 40.7 % 42.0 - 54.0 06/01/2017 [facility] HEMATOLOGY MCV 86.3 fL 80.0 - 94.0 06/01/2017 [facility] HEMATOLOGY RBC 4.72 M/CMM 4.70 - 6.10 06/01/2017 [facility] HEMATOLOGY WBC 13.1 K/CMM 3.7 - 10.4 06/01/2017 [facility] HEMATOLOGY Monocytes 7.8 % 2.0 - 12.0 06/01/2017 [facility] HEMATOLOGY Segs 70.9 % 45.0 - 75.0 06/01/2017 [facility] HEMATOLOGY Lymphocytes 18.3 % 20.0 - 40.0 06/01/2017 [facility] HEMATOLOGY Segs-Bands # 9.3 K/CMM 1.5 - 8.1 06/01/2017 [facility] HEMATOLOGY Lymphocytes # 2.4 K/CMM 1.0 - 5.5 06/01/2017 [facility] HEMATOLOGY Eosinophils 2.7 % 0.0 - 4.0 06/01/2017 [facility] HEMATOLOGY Basophils 0.3 % 0.0 - 1.0 06/01/2017 [facility] HEMATOLOGY Monocytes # 1.0 K/CMM 0.0 - 0.8 06/01/2017 [facility] HEMATOLOGY Eosinophils # 0.3 K/CMM 0.0 - 0.5 06/01/2017 [facility] Chest 1view DX Chest 1view DX Patient Name: FUAD ERAZO : 1940; Age: 77 years Male MR: [id number] Study: Chest 1view DX Order Time: 06/01/2017 10:00 AM [employer]PH[employer]IC Clinical Indication: - fall. COMPARISON: October 2016 x-rays back to November 10. FINDINGS: Views: 1 SUPPORT LINES: Cardiac device wires intact. LUNGS: There is normal lung volume. Left lower lobe atelectasis. There are no pleural effusions. There is no pneumothorax. The pulmonary vasculature is normal. MEDIASTINUM: The cardiac silhouette is enlarged. The trachea is midline. Right upper hemithorax vascular stent. BONES: Lower cervical fusion with neck soft tissue dmitri. IMPRESSION: Left lower lobe atelectasis. SL: [id number] 06/01/2017 - - Read by: Jorge A Guillermo MD Dictated Date/time: 06/01/17 11:00 Electronically Signed by: Jorge A Guillermo MD 06/01/17 11:01 FINAL REPORT [facility] Pelvis AP DX Pelvis AP DX 1 VIEW PELVIS HISTORY: Patient fell. Pain. COMPARISON: No relevant priors available. Evidence of prior lower lumbar spine surgery. The bony pelvis is intact without fracture or dislocation. SI joints appear normal. IMPRESSION: Previous lumbar spine surgery otherwise normal exam. END REPORT SL: [id number] 06/01/2017 - - Read by: Tor Quintero MD Dictated Date/time: 06/01/17 11:05 Electronically Signed by: Tor Quintero MD 06/01/17 11:06 FINAL REPORT [facility] Chest/Abdomen/Pelvis wo IV contrast CT Chest/Abdomen/Pelvis wo IV contrast CT EXAM: CT chest, abdomen and pelvis HISTORY: Fell in bathroom, back pain CHEST TECHNIQUE: Axial images of the chest with sagittal and coronal reformats. No contrast. DLP:[id number] FINDINGS: CHEST No pulmonary contusion, mediastinal hematoma, pneumothorax or pleural effusion is seen. No fracture is seen. 1.8 cm spiculated partially cavitary opacity left lower lobe, series 3, image 31. Calcified granuloma right lower lobe. Centrilobular emphysema with patchy peripheral groundglass opacities in the lower lungs. ABDOMEN AND PELVIS TECHNIQUE: Axial images of the abdomen and pelvis with sagittal and coronal reformats. FINDINGS: Unenhanced images of the liver, spleen, kidneys, adrenals, gallbladder and pancreas appear intact. Bowel appears intact. No free air or free fluid is seen. Cyst left kidney. Scarring and perinephric stranding of the kidneys. Bladder is well-distended with possible transurethral resection of the prostate. No bone fracture is seen. Marked disc space narrowing and endplate sclerosis and irregularity T1-T2. IMPRESSION: 1. Limited exam without contrast. Otherwise, no acute traumatic injury is appreciated. 2. Pulmonary emphysema. 1.8 cm cavitary lesion left lower lobe is indeterminate for infection versus malignancy. Follow-up CT chest with contrast in 8 weeks or PET/CT can further evaluate. 3. Mild patchy groundglass opacities in the lungs may reflect a pneumonitis. 4. The bladder is well distended. 5. Marked probable degenerative disc disease T1-T2; clinically correlate to exclude discitis/osteomyelitis. SL: [id number] 06/01/2017 - - Read by: Ricardo Rivera MD Dictated Date/time: 06/01/17 10:57 Electronically Signed by: Ricardo Rivera MD 06/01/17 11:23 FINAL REPORT [facility] Brain wo contrast CT Brain wo contrast CT EXAM: Brain wo contrast CT PROVIDED CLINICAL HISTORY: Slurred speech at 0500 hours. Family states fall at unknown time. Denies head trauma. TECHNIQUE: Contiguous axial images from the skull base to the vertex without intravenous contrast. Coronal and sagittal reformats. EXPOSURE: Total exam DLP is 1023.84 mGy-cm. COMPARISON: CT Brain performed 11/19/2016. FINDINGS: LIMITATIONS: Irregular parenchymal attenuation within the inadequately-evaluated caudal brainstem can be attributed to beam-hardening streak artifact from the adjacent petrous bones. This common CT artifact could obscure subtle underlying abnormality. MR may be helpful for further assessment if clinically appropriate. BRAIN: See above. -- No definite CT evidence of diminished worthy-white differentiation, sulcal effacement, or other findings suggestive of acute transcortical infarct. No asymmetrically hyperdense intracranial artery. Focal hypodensities along the inferior basal ganglia bilaterally are presumed lacunar infarcts but are in a classic location for (and possibly) prominent perivascular spaces. 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 -- No brain parenchymal contusion or edema. No intracranial hemorrhage or other fluid collection. No intracranial mass. Age-consistent brain parenchymal volume. VENTRICLES / CISTERNS / SHIFT: No hydrocephalus. No significant effacement of the basal cisterns or foramen magnum. No significant midline shift. BONES / SCALP: No acute depressed fracture of the calvarium or skull base. No aggressive bone lesions. No significant extracranial soft tissue abnormality. IMAGED SINUSES / MASTOIDS: No significant paranasal sinus fluid. No significant sinus mucosal thickening. No significant fluid in the imaged mastoid air cells. IMPRESSION: No acute intracranial abnormality. No intracranial mass or hemorrhage. Chronic microangiopathic ischemic gliosis. No significant change of the intracranial findings. Please note that acute non-hemorrhagic ischemic changes could be CT-occult in the first 24 hours or could be masked by the white matter disease. MR with diffusion-weighted sequence could better detect acute ischemia and may be helpful for further assessment if clinically appropriate. SL: [id number] 06/01/2017 - - Read by: Chepe Powell MD Dictated Date/time: 06/01/17 10:36 Electronically Signed by: Chepe Powell MD 06/01/17 10:50 FINAL REPORT [facility] Spine cervical wo contrast CT Spine cervical wo contrast CT PROCEDURE: CT cervical spine without contrast. Reconstruction images. INDICATION: Patient's family reports that patient fell at unknown time in the bathroom. Patient denies hitting the head. Patient denies loss of consciousness. Patient felt the right side. TECHNIQUE: Multi-detector CT imaging of the cervical spine is performed. Coronal and sagittal reconstructions were obtained. Total CT radiation dose: AGK=277.90 mGy-cm COMPARISON: CT neck soft tissue dated 11/23/2016. CT cervical myelogram dated 10/18/2015. FINDINGS: ALIGNMENT AND GENERAL ASSESSMENT: No visualized fractures. Stable grade 2 anterior spondylolisthesis at C4-C5 level measures 5 -- 6 mm. This appears stable dating back to September 2015. Normal alignment of the cervical cranial junction. No facet dislocation identified. DISK SPACES AND SOFT TISSUES: The prevertebral soft tissues are normal. Surgical clips are identified within the neck laterally. Moderate to severe sclerosis and osteophytes anteriorly within the cervical cranial junction, C1-C2 level. Partial fusion of C5-C6, C6-C7 vertebral bodies appears stable. Grade 2 anterior spondylolisthesis at C4-C5 level is stable and measures 5 -- 6 mm. Multilevel moderate to severe degenerative changes throughout the cervical spine. Bilateral transpedicular screws at C3-C6 levels with posterior Neumann rods. Patient has undergone posterior laminectomy at C4-C5 level. Degenerative and postsurgical changes appear stable. MRI is the gold standard to assess for disk disease, central canal and foraminal narrowing. VISUALIZED LUNG APICES: Likely mild emphysematous changes identified in the lung apices with perhaps linear scarring. IMPRESSION: 1. No acute bony abnormality identified. 2. Extensive multilevel degenerative and postsurgical changes which appear stable dating back to September 2015. 3. Stable grade 2 anterior spondylolisthesis at C4-C5 level. SL: [id number] 06/01/2017 - - Read by: Zac Pruitt MD Dictated Date/time: 06/01/17 10:56 Electronically Signed by: Zac Pruitt MD 06/01/17 11:02 FINAL REPORT [facility] Esophagus BA swallow function video DX Esophagus BA swallow function video DX Patient Name: FUAD ERAZO : 1940; Age: 76 years Male MR: [id number] Study: Esophagus BA swallow function video DX Order Time: 12/01/2016 11:27 AM CDT CLINICAL INDICATION: History of right carotid endarterectomy COMPARISON: None. FLUOROSCOPY TIME: 1.1min, Total DAP: 4.85mGy TECHNIQUE: Fluoroscopic assistance was provided for the speech pathologist for modified barium swallow examination. Varying consistencies of barium were administered po. FINDINGS: Thin consistency barium: Deep penetration observed with cough. No significant aspiration. [place] consistency barium: No aspiration or any significant laryngeal penetration. Pudding coated barium: No aspiration or any significant laryngeal penetration. Barium with cracker preparation: No aspiration or any significant laryngeal penetration. IMPRESSION: Refer to speech pathology report for full details. SL: [id number] 12/01/2016 - - Read by: Yinka Hebert MD Dictated Date/time: 12/01/16 14:59 Electronically Signed by: Yinka Hebert MD 12/01/16 14:59 FINAL REPORT [facility] CHEM PANEL Calcium Lvl 9.2 mg/dL 8.5 - 10.5 11/30/2016 [facility] CHEM PANEL CO2 33 meq/L 24 - 32 11/30/2016 [facility] CHEM PANEL eGFR 88 mL/min/1.73m2 11/30/2016 Result Comment: The eGFR is calculated using the CKD-EPI formula. In most young, healthy individuals the eGFR will be >90 mL/min/1.73m2. The eGFR declines with age. An eGFR of 60-89 may be normal in some populations, particularly the elderly, for whom the CKD-EPI formula has not been extensively validated. Use of the eGFR is not recommended in the following populations: Individuals with unstable creatinine concentrations, including patients and those with serious co-morbid conditions. Patients with extremes in muscle mass or diet. The data above are obtained from the National Kidney Disease Education Program (NKDEP) which additionally recommends that when the eGFR is used in patients with extremes of body mass index for purposes of drug dosing, the eGFR should be multiplied by the estimated BMI. [facility] CHEM PANEL Glucose Lvl 144 mg/dL 70 - 99 11/30/2016 [facility] CHEM PANEL Potassium Lvl 5.2 meq/L 3.5 - 5.1 11/30/2016 [facility] CHEM PANEL Chloride Lvl 98 meq/L 95 - 109 11/30/2016 [facility] CHEM PANEL BUN 24 mg/dL 7 - 22 11/30/2016 [facility] CHEM PANEL Creatinine Lvl 0.79 mg/dL 0.50 - 1.40 11/30/2016 [facility] CHEM PANEL Sodium Lvl 139 meq/L 135 - 145 11/30/2016 [facility] CHEM PANEL AGAP 13.2 meq/L 10.0 - 20.0 11/30/2016 [facility] HEMATOLOGY Lymphocytes # 1.8 K/CMM 1.0 - 5.5 11/30/2016 [facility] HEMATOLOGY Monocytes # 0.9 K/CMM 0.0 - 0.8 11/30/2016 [facility] HEMATOLOGY Eosinophils # 0.2 K/CMM 0.0 - 0.5 11/30/2016 [facility] HEMATOLOGY RBC Morph Normal (11/30/16 4:02 AM) 11/30/2016 [facility] Lymphocytes 19.0 % 20.0 - 40.0 11/30/2016 [facility] Monocytes 9.3 % 2.0 - 12.0 11/30/2016 [facility] Eosinophils 1.8 % 0.0 - 4.0 11/30/2016 [facility] Plt Morph Normal (11/30/16 4:02 AM) 11/30/2016 [facility] HEMATOLOGY Segs 69.5 % 45.0 - 75.0 11/30/2016 [facility] Basophils 0.4 % 0.0 - 1.0 11/30/2016 [facility] Segs-Bands # 6.5 K/CMM 1.5 - 8.1 11/30/2016 [facility] RBC 3.44 M/CMM 4.70 - 6.10 11/30/2016 [facility] WBC 9.3 K/CMM 3.7 - 10.4 11/30/2016 [facility] Hct 28.8 % 42.0 - 54.0 11/30/2016 [facility] Hgb 9.4 g/dL 14.0 - 18.0 11/30/2016 [facility] RDW 15.5 % 11.5 - 14.5 11/30/2016 [facility] MCHC 32.6 g/dL 32.0 - 36.0 11/30/2016 [facility] MPV 8.3 fL 7.4 - 10.4 11/30/2016 [facility] MCH 27.3 pg 27.0 - 31.0 11/30/2016 [facility] Platelet 439 K/CMM 133 - 450 11/30/2016 [facility] MCV 83.8 fL 80.0 - 94.0 11/30/2016 [facility] CHEM PANEL Magnesium Lvl 1.9 mg/dL 1.8 - 2.4 11/28/2016 [facility] ELECTROLYTES AGAP 12.7 meq/L 10.0 - 20.0 11/28/2016 [facility] ELECTROLYTES eGFR 98 mL/min/1.73m2 11/28/2016 Result Comment: The eGFR is calculated using the CKD-EPI formula. In most young, healthy individuals the eGFR will be >90 mL/min/1.73m2. The eGFR declines with age. An eGFR of 60-89 may be normal in some populations, particularly the elderly, for whom the CKD-EPI formula has not been extensively validated. Use of the eGFR is not recommended in the following populations: Individuals with unstable creatinine concentrations, including patients and those with serious co-morbid conditions. Patients with extremes in muscle mass or diet. The data above are obtained from the National Kidney Disease Education Program (NKDEP) which additionally recommends that when the eGFR is used in patients with extremes of body mass index for purposes of drug dosing, the eGFR should be multiplied by the estimated BMI. [facility] ELECTROLYTES Calcium Lvl 9.0 mg/dL 8.5 - 10.5 11/28/2016 [facility] ELECTROLYTES BUN 17 mg/dL 7 - 22 11/28/2016 [facility] ELECTROLYTES Glucose Lvl 151 mg/dL 70 - 99 11/28/2016 [facility] ELECTROLYTES Sodium Lvl 139 meq/L 135 - 145 11/28/2016 [facility] ELECTROLYTES Creatinine Lvl 0.62 mg/dL 0.50 - 1.40 11/28/2016 [facility] ELECTROLYTES Chloride Lvl 98 meq/L 95 - 109 11/28/2016 [facility] ELECTROLYTES CO2 32 meq/L 24 - 32 11/28/2016 [facility] ELECTROLYTES Potassium Lvl 3.7 meq/L 3.5 - 5.1 11/28/2016 [facility] HEMATOLOGY Basophils # 0.1 K/CMM 0.0 - 0.2 11/28/2016 [facility] HEMATOLOGY Eosinophils # 0.2 K/CMM 0.0 - 0.5 11/28/2016 [facility] Monocytes 8.3 % 2.0 - 12.0 11/28/2016 [facility] HEMATOLOGY Segs 74.0 % 45.0 - 75.0 11/28/2016 [facility] Lymphocytes 14.7 % 20.0 - 40.0 11/28/2016 [facility] HEMATOLOGY Basophils 1.0 % 0.0 - 1.0 11/28/2016 [facility] HEMATOLOGY Segs-Bands # 7.3 K/CMM 1.5 - 8.1 11/28/2016 [facility] HEMATOLOGY Eosinophils 2.0 % 0.0 - 4.0 11/28/2016 [facility] HEMATOLOGY Lymphocytes # 1.4 K/CMM 1.0 - 5.5 11/28/2016 [facility] HEMATOLOGY Monocytes # 0.8 K/CMM 0.0 - 0.8 11/28/2016 [facility] HEMATOLOGY WBC 9.8 K/CMM 3.7 - 10.4 11/28/2016 [facility] RBC 3.57 M/CMM 4.70 - 6.10 11/28/2016 [facility] RDW 15.6 % 11.5 - 14.5 11/28/2016 [facility] Platelet 422 K/CMM 133 - 450 11/28/2016 [facility] Hct 29.6 % 42.0 - 54.0 11/28/2016 [facility] MCV 83.0 fL 80.0 - 94.0 11/28/2016 [facility] Hgb 9.9 g/dL 14.0 - 18.0 11/28/2016 [facility] MCH 27.7 pg 27.0 - 31.0 11/28/2016 [facility] MCHC 33.4 g/dL 32.0 - 36.0 11/28/2016 [facility] MPV 7.9 fL 7.4 - 10.4 11/28/2016 [facility] BLOOD BANK RESULTS RBC product Product available 1 (11/27/16 7:09 PM) 11/28/2016 Result Comment: 11/27/2016 20:16 [id number] spoke to Fatimah,1B on 11/27/2016 20:16 by Kelvin. [facility] BLOOD BANK RESULTS Antibody Scrn Negative (11/27/16 3:55 PM) 11/27/2016 [facility] BLOOD BANK RESULTS ABO/Rh O POS 11/27/2016 [facility] Platelet 444 K/CMM 133 - 450 11/27/2016 [facility] MPV 8.0 fL 7.4 - 10.4 11/27/2016 [facility] RBC 2.72 M/CMM 4.70 - 6.10 11/27/2016 [facility] Hgb 7.2 g/dL 14.0 - 18.0 11/27/2016 [facility] WBC 9.7 K/CMM 3.7 - 10.4 11/27/2016 [facility] MCV 82.0 fL 80.0 - 94.0 11/27/2016 [facility] Hct 22.3 % 42.0 - 54.0 11/27/2016 [facility] RDW 15.5 % 11.5 - 14.5 11/27/2016 [facility] MCHC 32.5 g/dL 32.0 - 36.0 11/27/2016 [facility] HEMATOLOGY MCH 26.6 pg 27.0 - 31.0 11/27/2016 [facility] HEMATOLOGY Eosinophils 1.9 % 0.0 - 4.0 11/27/2016 [facility] HEMATOLOGY Basophils 0.3 % 0.0 - 1.0 11/27/2016 [facility] HEMATOLOGY Lymphocytes # 1.5 K/CMM 1.0 - 5.5 11/27/2016 [facility] HEMATOLOGY Segs-Bands # 7.2 K/CMM 1.5 - 8.1 11/27/2016 [facility] Eosinophils # 0.2 K/CMM 0.0 - 0.5 11/27/2016 [facility] HEMATOLOGY Monocytes # 0.8 K/CMM 0.0 - 0.8 11/27/2016 [facility] Monocytes 8.2 % 2.0 - 12.0 11/27/2016 [facility] Lymphocytes 15.3 % 20.0 - 40.0 11/27/2016 [facility] Segs 74.3 % 45.0 - 75.0 11/27/2016 [facility] Esophagus BA swallow function video DX Esophagus BA swallow function video DX Esophagus BA swallow function video DX Modified barium swallow: CLINICAL HISTORY:fl time .8 min, dose 4.35 mGy, - R CEA TECHNIQUE: Fluoroscopic assistance was provided for the speech pathologist for modified barium swallow examination. Varying consistencies of barium were administered po. IMPRESSION: Patient demonstrated deep penetration with delayed cough on nectar and honey consistencies. No evidence of penetration or aspiration with pudding or cracker consistencies. Multiple surgical clips are present within the neck. Extensive posterior cervical spinal fusion is present. Please refer to speech pathology report for complete details. FT: About 0.8 minute. SL: [id number] 11/27/2016 - - Read by: Brock Ham MD Dictated Date/time: 11/27/16 12:45 Electronically Signed by: Brock Ham MD 11/27/16 12:47 FINAL REPORT [facility] ELECTROLYTES AGAP 10.3 meq/L 10.0 - 20.0 11/27/2016 [facility] ELECTROLYTES Creatinine Lvl 0.58 mg/dL 0.50 - 1.40 11/27/2016 [facility] ELECTROLYTES Glucose Lvl 145 mg/dL 70 - 99 11/27/2016 [facility] ELECTROLYTES Calcium Lvl 8.3 mg/dL 8.5 - 10.5 11/27/2016 [facility] ELECTROLYTES BUN 17 mg/dL 7 - 22 11/27/2016 [facility] ELECTROLYTES eGFR 100 mL/min/1.73m2 11/27/2016 Result Comment: The eGFR is calculated using the CKD-EPI formula. In most young, healthy individuals the eGFR will be >90 mL/min/1.73m2. The eGFR declines with age. An eGFR of 60-89 may be normal in some populations, particularly the elderly, for whom the CKD-EPI formula has not been extensively validated. Use of the eGFR is not recommended in the following populations: Individuals with unstable creatinine concentrations, including patients and those with serious co-morbid conditions. Patients with extremes in muscle mass or diet. The data above are obtained from the National Kidney Disease Education Program (NKDEP) which additionally recommends that when the eGFR is used in patients with extremes of body mass index for purposes of drug dosing, the eGFR should be multiplied by the estimated BMI. [facility] ELECTROLYTES CO2 33 meq/L 24 - 32 11/27/2016 [facility] ELECTROLYTES Sodium Lvl 138 meq/L 135 - 145 11/27/2016 [facility] ELECTROLYTES Potassium Lvl 3.3 meq/L 3.5 - 5.1 11/27/2016 [facility] ELECTROLYTES Chloride Lvl 98 meq/L 95 - 109 11/27/2016 [facility] CHEM PANEL Phosphorus 2.8 mg/dL 2.5 - 4.5 11/26/2016 [facility] CHEM PANEL Magnesium Lvl 1.6 mg/dL 1.8 - 2.4 11/26/2016 [facility] CHEM PANEL Phosphorus 1.4 mg/dL 2.5 - 4.5 11/25/2016 Result Comment: Critical Result(s) called to Adrianne Gonzalez at 11/25/2016 19:46 by deidra. Read back OK. [facility] CHEM PANEL Magnesium Lvl 1.7 mg/dL 1.8 - 2.4 11/25/2016 [facility] CARDIAC ENZYMES Troponin-I 0.04 ng/mL 0.00 - 0.40 11/25/2016 [facility] CHEM PANEL Total Protein 6.1 g/dL 6.4 - 8.4 11/25/2016 [facility] CHEM PANEL A/G Ratio 0.7 0.7 - 1.6 11/25/2016 [facility] CHEM PANEL ALT 9 unit/L 0 - 65 11/25/2016 [facility] CHEM PANEL Bili Total 0.4 mg/dL 0.2 - 1.3 11/25/2016 [facility] CHEM PANEL AST 12 unit/L 0 - 37 11/25/2016 [facility] CHEM PANEL Alk Phos 78 unit/L 39 - 136 11/25/2016 [facility] CHEM PANEL B/C Ratio 33 6 - 25 11/25/2016 [facility] CHEM PANEL Albumin Lvl 2.5 g/dL 3.5 - 5.0 11/25/2016 [facility] CHEM PANEL Globulin 3.6 g/dL 2.7 - 4.2 11/25/2016 [facility] CHEM PANEL Phosphorus 2.2 mg/dL 2.5 - 4.5 11/25/2016 [facility] Chest 1view DX Chest 1view DX Patient Name: FUAD ERAZO : 1940; Age: 76 years Male MR: [id number] Study: Chest 1view DX Order Time: 11/24/2016 3:36 PM CDT Clinical Indication: Dyspnea - sob. COMPARISON: October 2016 x-rays back to November 07. FINDINGS: Views: 1 SUPPORT LINES: Cardiac device wires in the right ventricle. LUNGS: There is increased lung volume. Left lower lobe atelectasis. There are no pleural effusions. There is no pneumothorax. The pulmonary vasculature is normal. MEDIASTINUM: The cardiac silhouette is enlarged. The trachea is midline. BONES: Left glenohumeral joint osteoarthritic change. Cervical fusion incompletely evaluated. IMPRESSION: 1. Hyperinflation. 2. Left lower lobe atelectasis. Enlarged cardiac silhouette. SL: [id number] 11/24/2016 - - Read by: Jorge A Guillermo MD Dictated Date/time: 11/24/16 17:52 Electronically Signed by: Jorge A Guillermo MD 11/24/16 17:53 FINAL REPORT [facility] HEMATOLOGY INR 1.05 0.85 - 1.17 11/23/2016 [facility] HEMATOLOGY PT 13.9 s 12.0 - 14.7 11/23/2016 [facility] HEMATOLOGY PTT 23.7 s 22.9 - 35.8 11/23/2016 [facility] Neck soft tissue w contrast CT Neck soft tissue w contrast CT Neck soft tissue w contrast CT Age: 76 y/o Male Clinical Indication: dysphagia, post rt carotid surgery. headache; Comparison: None Technique: CT of the neck is performed with a multidetector CT. Coronal and sagittal reconstructions were obtained. CONTRAST: 100 cc of IV Omnipaque 300 contrast material was used for the exam. CT Radiation Dose DLP 484 mGy-cm FINDINGS: SOFT TISSUES: Some indistinctness of fat planes is present surrounding the carotid artery deep to the sternocleidomastoid muscle on the right. This indistinctness extends superiorly from the region of the thyroid gland to the angle of the mandible and is consistent with the history of recent surgery. There is no evidence of extravasation of contrast at the operative site. Soft tissue swelling compresses the jugular vein which is seen posteriorly as a thin crescent of contrast behind the operative swelling. LYMPH NODES: There is no apparent submandibular lymphadenopathy. There is no visible jugular chain or posterior cervical chain lymphadenopathy or masses. The nasopharyngeal adenoids appear unremarkable. SALIVARY GLANDS: The submandibular and parotid glands are unremarkable. PARANASAL SINUSES AND AIRWAY: The paranasal sinuses are clear without soft tissue thickening or air-fluid levels. At the level of the soft palate and tonsillar pillars the airway is occluded. Below the soft palate there is obliteration of fat planes in the right parapharyngeal region and some mild mass effect on the oropharynx and upper hypopharynx. Below the floor of mouth and hyoid bone there is some marked narrowing of the airway at the level of the laryngeal vestibule with minimal cross-section of approximately 4 mm. There is no significant midline shift. ORBITS: The visualized orbits are unremarkable. OSSEOUS STRUCTURES: Extensive degenerative changes present in the cervical spine as well as multilevel posterior cervical fusions with orthopedic fixation hardware. THYROID GLANDS: No thyroid mass or enlargement. VISUALIZED LUNG APICES: There are no pulmonary masses or consolidation. IMPRESSION: 1. Postoperative changes in the region of the carotid sheath with surrounding soft tissue edema and swelling, possibly hematoma, which compresses the jugular vein and obliterates surrounding fat planes in this region. The carotid is patent. 2. Soft tissue swelling in the right parapharyngeal and retropharyngeal regions at the level of the soft palate and oral cavity and larynx creating attenuation of the airway in these regions. SL: [id number] 11/23/2016 - - Read by: Jeremías Odom MD Dictated Date/time: 11/23/16 15:34 Electronically Signed by: Jeremías Odom MD 11/23/16 16:13 FINAL REPORT [facility] Brain wo contrast CT Brain wo contrast CT Brain wo contrast CT CLINICAL HISTORY: CT DLP: 926 MGY-CM - dysarthria after R CEA; COMPARISON: CT head 11/12/2016 TECHNIQUE: Contiguous transaxial images of the brain were performed without administration of IV contrast. Reformations were performed in sagittal and coronal projections. FINDINGS: BRAIN PARENCHYMA: There is no evidence for space-occupying lesions, mass effect or vasogenic edema. No evidence for parenchymal bleed, extra-axial collections or midline shift. Decreased attenuation in the periventricular white matter is likely related to chronic ischemic change from small vessel disease. Small old lacunar infarcts are visualized in the basal ganglia bilaterally. No acute infarct is noted. Intracranial vascular calcifications are noted. VENTRICLES: There is dilation of ventricles and subarachnoid spaces but not out of proportion to the underlying cerebral atrophy. BRAINSTEM, SELLA AND ORBITS: No evidence for Chiari malformation. No space- occupying lesion is visualized in the sella. Visualized portion of the orbits are unremarkable. CALVARIUM AND SKULL BASE: No displaced bony fractures or other significant bony abnormality is visualized. MASTOIDS AND PARANASAL SINUSES: The visualized paranasal sinuses are clear. Mastoid air cells are clear bilaterally. IMPRESSION: No acute brain abnormality is noted. No significant interval change from previous CT of 11/12/2016. Further evaluation may be obtained with MRI of brain as clinically indicated. SL: [id number] 11/19/2016 - - Read by: Sanjay De La Torre MD Dictated Date/time: 11/20/16 12:02 Electronically Signed by: Sanjay De La Torre MD 11/20/16 12:06 FINAL REPORT [facility] Chest 1view DX Chest 1view DX Patient Name: FUAD ERAZO : 1940; Age: 76 years y/o Male MR: [id number] * CHEST, portable, 1 view HISTORY: Dyspnea - postoperative COMPARISON: 11/14/2016. A study 10/07/2016 was reviewed. TECHNIQUE: A portable frontal radiograph of the chest was obtained. FINDINGS: Is no evidence for an active or acute process within the chest. The lungs are clear. There are no pleural effusions. The heart is normal in size. There are mild to moderate atherosclerotic change involving the thoracic aorta. There are postoperative change involving the cervical spine. Posterior rods and screws are noted. Surgical clips are also noted throughout much of the cervical region. There is mild thoracic scoliosis, convexity to the right. The regional skeleton is otherwise unremarkable. There is a left subclavian single-lead transvenous pacemaker. IMPRESSION: 1. No active disease. 2. There is a left subclavian single-lead transvenous pacemaker. 3. Postoperative changes, cervical spine. SL: [id number] 11/19/2016 - - Read by: Asael Guajardo MD Dictated Date/time: 11/19/16 12:19 Electronically Signed by: Asael Guajardo MD 11/19/16 12:21 FINAL REPORT [facility] BACTERIAL - SEROLOGY MRSA by PCR Negative (11/17/16 7:01 PM) 11/18/2016 [facility] BLOOD BANK RESULTS ABO/Rh O POS 11/14/2016 [facility] BLOOD [facility] RESULTS Antibody Scrn Negative (11/14/16 2:23 PM) 11/14/2016 [facility] HEMATOLOGY PT 13.3 s 12.0 - 14.7 11/14/2016 [facility] HEMATOLOGY INR 0.99 0.85 - 1.17 11/14/2016 [facility] HEMATOLOGY PTT 30.5 s 22.9 - 35.8 11/14/2016 [facility] Chest 1view DX Chest 1view DX Patient Name: FUAD ERAZO : 1940; Age: 76 years y/o Male MR: [id number] * CHEST, portable, 1 view HISTORY: Dyspnea - COMPARISON: 11/10/2016. Studies of 11/04/2016 and 09/15/2016 were reviewed. TECHNIQUE: A portable frontal radiograph of the chest was obtained. FINDINGS: There is minimal linear atelectasis or scarring in the left base. The lungs are clear. There are no pleural effusions. The heart is normal in size. There are mild atherosclerotic calcifications involving the thoracic aorta. There are postoperative change involving the cervical spine. Bilateral rods are noted. There are also surgical clips overlying the cervical region. The regional skeleton is otherwise unremarkable. There is a left subclavian single-lead transvenous pacemaker. IMPRESSION: 1. No active disease. 2. Left subclavian single-lead transvenous pacemaker. 3. Postoperative changes, cervical spine. SL: [id number] 11/14/2016 - - Read by: Asael Guajardo MD Dictated Date/time: 11/14/16 14:29 Electronically Signed by: Asael Guajardo MD 11/14/16 14:31 FINAL REPORT [facility] CHEM PANEL Bili Total 0.3 mg/dL 0.2 - 1.3 11/14/2016 [facility] CHEM PANEL Alk Phos 88 unit/L 39 - 136 11/14/2016 [facility] CHEM PANEL AST 12 unit/L 0 - 37 11/14/2016 [facility] CHEM PANEL Total Protein 7.0 g/dL 6.4 - 8.4 11/14/2016 [facility] CHEM PANEL B/C Ratio 14 6 - 25 11/14/2016 [facility] CHEM PANEL ALT 14 unit/L 0 - 65 11/14/2016 [facility] CHEM PANEL A/G Ratio 0.7 0.7 - 1.6 11/14/2016 [facility] CHEM PANEL Globulin 4.2 g/dL 2.7 - 4.2 11/14/2016 [facility] CHEM PANEL Albumin Lvl 2.8 g/dL 3.5 - 5.0 11/14/2016 [facility] LIPIDS VLDL 31 11/13/2016 [facility] LIPIDS HDL 25 mg/dL >=61 mg/dL 11/13/2016 [facility] CHD Risk 6.88 4.00 - 7.30 11/13/2016 [facility] LIPIDS Chol 172 mg/dL <=199 mg/dL 11/13/2016 [facility] LIPIDS Trig 154 mg/dL <=149 mg/dL 11/13/2016 [facility] LIPIDS LDL (Calculated) 116 mg/dL <=99 mg/dL 11/13/2016 [facility] Brain Stroke wo contrast CT Brain Stroke wo contrast CT Addendum: Agree with the above report. Clinical Indication: Unresponsive and four limb weakness onset 0950, last known at 0815 claim administrator called; Comparison: None TECHNIQUE: CT images were obtained from the foramen magnum to the vertex without the use of intravenous contrast on a multidetector CT. Coronal and sagittal reconstructions were obtained. CT radiation dose DLP: 1105 mGy-cm FINDINGS: BRAIN PARENCHYMA: There are normal worthy-white interfaces, sulci and gyri. There are no focal mass lesions on this noncontrast head CT. There is no mass effect, midline shift or edema. There are no intra-axial or extra-axial fluid collections, intraventricular or intraparenchymal hemorrhage. The pineal, sellar, brainstem, cerebellum and skull base regions appear unremarkable. Old bilateral basal ganglia lacunar infarcts. Scattered white matter small vessel ischemic changes VENTRICLES: The lateral ventricles, third and fourth ventricles appear unremarkable. The basilar cisterns are normal. ORBITS, MASTOIDS AND PARANASAL SINUSES: The visualized orbits and paranasal sinuses are unremarkable. The mastoid air cells are clear. SKULL: There are no osseous abnormalities. If there is further concern for intracranial pathology or acute stroke, MRI of the brain may be performed for complete assessment. IMPRESSION: No acute intracranial abnormalities. Old bilateral basal ganglia lacunar infarcts and supratentorial white matter small vessel schema changes Findings called to the patient's nurse Celso at 1105 on 11/12/[address] Deng. 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 COMPARISON: 11/05/2016. TECHNIQUE: Sequential trans-axial images of the head and neck were obtained with a multi-detector helical CT after iodinated contrast administration. Coronal and sagittal reconstructions were obtained, along with 3D post-processing imaging for exam interpretation. FINDINGS: CTA NECK: VASCULAR EVALUATION: The patient is status post bilateral carotid endarterectomy. Persistent ectasia of the right carotid bulb. 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 There is no significant left cervical carotid stenosis. The external carotid artery origins are patent. There is stenosis of the origin of the right vertebral artery. The left vertebral artery appears normal. The source images show no evidence of dissections. There is a right brachiocephalic stent. If there is further concern, recommend conventional angiography for complete assessment. Any reported ICA stenosis directly references the distal internal carotid diameter as the denominator for stenosis measurement. NON-VASCULAR STRUCTURES: Emphysematous change. Posterior cervical fusion. FINDINGS: CTA HEAD ANTERIOR CIRCULATION: Absent right A1 segment. Normal bilateral A2 segments. Moderate to severe stenosis of the origin of the left M1 segment. 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 POSTERIOR CIRCULATION: Bilateral vertebral arteries, basilar artery, superior cerebellar and posterior cerebral arteries are normal. There are no aneurysms or arteriovenous malformations seen. There is no significant atherosclerotic disease. NON-CONTRAST BRAIN IMAGES: The noncontrast images of the head show no mass- effect or midline shift. There are no intra or extra-axial fluid collections, intraventricular or intraparenchymal hemorrhages. The ventricles and cisterns are normal. CONTRAST ENHANCED BRAIN IMAGES: The contrast-enhanced images of the head show no abnormally enhancing lesions. If there is further concern, recommend conventional angiography for complete assessment. IMPRESSION: 1. Stable appearance to the 80% or greater weblike stenosis in the proximal right internal carotid artery representing restenosis or residual intimal flap post endarterectomy. 2. Moderate to severe stenosis of the origin of the left M1 segment. 3. Stenosis at the origin of the right vertebral artery. SL: [id number]. 11/12/2016 - - Read by: Jorge A Guillermo MD Dictated Date/time: 11/12/16 11:30 Electronically Signed by: Jorge A Guillermo MD 11/12/16 12:00 FINAL REPORT [facility] URINE AND STOOL UA Sq Epi None Seen 11/11/2016 [facility] URINE AND STOOL UA Color Ltyellow 11/11/2016 [facility] URINE AND STOOL UA Urobilinogen <=1.0 mg/dL 0.1 - 1.0 11/11/2016 [facility] URINE AND STOOL UA pH 6.0 5.0 - 8.0 11/11/2016 [facility] URINE AND STOOL UA Spec Grav 1.009 <=1.030 11/11/2016 [facility] URINE AND STOOL UA Turbidity Clear (11/11/16 2:34 PM) Clear 11/11/2016 [facility] URINE AND STOOL UA Protein Negative mg/dL Negative mg/dL 11/11/2016 [facility] URINE AND STOOL UA RBC 1 /HPF 0 - 2 11/11/2016 [facility] URINE AND STOOL UA Bacteria Occasional /HPF None Seen /HPF 11/11/2016 [facility] URINE AND STOOL UA Glucose Negative mg/dL Negative mg/dL 11/11/2016 [facility] URINE AND STOOL UA Nitrite Negative (11/11/16 2:34 PM) Negative 11/11/2016 [facility] URINE AND STOOL UA Bili Negative *NA* (11/11/16 2:34 PM) Negative 11/11/2016 [facility] URINE AND STOOL UA Ketones Negative mg/dL Negative mg/dL 11/11/2016 [facility] URINE AND STOOL UA WBC 7 /HPF 0 - 5 11/11/2016 [facility] URINE AND STOOL UA Blood Negative (11/11/16 2:34 PM) Negative 11/11/2016 [facility] URINE AND STOOL UA Leuk Est Trace *ABN* (11/11/16 2:34 PM) Negative 11/11/2016 [facility] BLOOD BANK RESULTS Antibody Scrn Negative (11/10/16 5:22 PM) 11/10/2016 [facility] BLOOD BANK RESULTS ABO/Rh O POS 11/10/2016 [facility] HEMATOLOGY PTT 35.9 s 22.9 - 35.8 11/10/2016 [facility] HEMATOLOGY PT 14.0 s 12.0 - 14.7 11/10/2016 [facility] HEMATOLOGY INR 1.06 0.85 - 1.17 11/10/2016 [facility] CHEM PANEL Procalcitonin Lvl 0.08 ng/mL 0.00 - 0.10 11/10/2016 [facility] CHEM PANEL Bili Total 0.9 mg/dL 0.2 - 1.3 11/10/2016 [facility] CHEM PANEL Alk Phos 98 unit/L 39 - 136 11/10/2016 [facility] CHEM PANEL ALT 14 unit/L 0 - 65 11/10/2016 [facility] CHEM PANEL AST 9 unit/L 0 - 37 11/10/2016 [facility] CHEM PANEL Total Protein 7.5 g/dL 6.4 - 8.4 11/10/2016 [facility] CHEM PANEL Albumin Lvl 3.1 g/dL 3.5 - 5.0 11/10/2016 [facility] CHEM PANEL Globulin 4.4 g/dL 2.7 - 4.2 11/10/2016 [facility] CHEM PANEL A/G Ratio 0.7 0.7 - 1.6 11/10/2016 [facility] CHEM PANEL B/C Ratio 21 6 - 25 11/10/2016 [facility] HEMATOLOGY Sed Rate 63 mm/h 0 - 15 11/10/2016 [facility] IMMUNOLOGY C-REACTIVE PROTEIN 151.0 mg/L <=2.9 mg/L 11/10/2016 [facility] Chest 1view DX Chest 1view DX Chest 1view DX 76 years old Male Clinical Indication: Dyspnea; Comparison: 11/07/2016 at 12:12 FINDINGS: Tubes and lines: Single lead left subclavian transvenous pacemaker in the right heart. LUNGS: The volume of the lungs is normal. There is no evidence of consolidation. No pleural effusion is noted. The pulmonary vasculature is within normal limits. MEDIASTINUM: Cardiac silhouette is within normal limits of size. Calcific atherosclerotic vascular disease is noted in the thoracic aorta. CHEST WALL: Unremarkable. SKELETON: The visualized osseous structures are unremarkable. IMPRESSION: 1. Pacemaker. 2. Otherwise negative chest. SL: [id number] 11/10/2016 - - Read by: Jeremías Odom MD Dictated Date/time: 11/10/16 16:48 Electronically Signed by: Jeremías Odom MD 11/10/16 16:48 FINAL REPORT [facility] HEMATOLOGY Basophils # 0.1 K/CMM 0.0 - 0.2 11/07/2016 [facility] Chest 1view DX Chest 1view DX Patient Name: FUAD ERAZO : 1940; Age: 76 years y/o Male MR: [id number] Study: Chest 1view DX 11/07/2016 9:43 AM CDT Ordering Physician: Clinical Indication: Dyspnea; Comparison: 11/04/2016 Chest one view Lungs are clear. The heart size is normal. Pulmonary vasculature is normal. There is no pleural effusion or pneumothorax. Pacemaker generator implanted in the left chest wall with single lead extending to the right ventricle, as before. Right subclavian arterial vascular stent is present. IMPRESSION: No new or acute findings. SL: [id number] 11/07/2016 - - Read by: Dov Zhang MD Dictated Date/time: 11/07/16 13:30 Electronically Signed by: Dov Zhang MD 11/07/16 13:33 FINAL REPORT [facility] Brain/Neck CTA Brain/Neck CTA CTA HEAD AND NECK: HISTORY: Syncope. TECHNIQUE: Multislice axial acquisitions were done from the vertex of the skull through the thoracic inlet during IV contrast bolus. Sagittal and coronal MIP tomograms, 3-D MIP and 3-D volume rendered images were also obtained. Stenosis measurements are according to NASCET criteria. ANGIOGRAPHIC FINDINGS: The carotid vasculature is moderately tortuous. There are surgical clips in the region of both carotid bifurcations consistent with prior endarterectomy. Mild ectasia of the right carotid bulb is noted. There is mild luminal irregularity of the right carotid bulb with a focal severe weblike stenosis in the proximal right internal carotid artery just above the bulb, estimated at 80% or greater. There is no significant left cervical carotid stenosis. Atherosclerotic calcification is seen in the carotid siphons. There is mild narrowing of the supraclinoid right internal carotid artery without other significant stenotic disease or aneurysms of the intracranial internal carotid arteries. The right M1 and middle cerebral artery branches are patent without significant stenotic disease or aneurysms. There is a moderate to severe stenosis involving the origin of the left M1 without other significant stenosis or aneurysms the left middle cerebral artery images. Right A1 is absent with filling of right A2 via the anterior communicating artery. No significant disease of the left A1 is demonstrated. Neither of the posterior communicating arteries is visualized. The vertebral arteries are patent and codominant. There is a moderate stenosis involving the origin of the right vertebral artery without other significant vertebral stenosis. The basilar artery is patent without evidence of significant stenosis or aneurysms. Bilateral PICA, AICA, superior cerebellar and posterior cerebral arteries are noted without significant disease. The arch is type III with the usual branching pattern of the great vessels. The arch is ectatic with irregular calcified and noncalcified plaque. There is calcified and noncalcified plaque involving the origins of the supra aortic trunks with mild narrowing of the origins of the brachiocephalic and left common carotid arteries. A patent stent is seen in the right brachiocephalic artery extending into the right subclavian artery, with the distal end of the stent at the origin of the right vertebral artery. NONANGIOGRAPHIC FINDINGS: No acute brain abnormalities are demonstrated. Small lacunae in the thalami and basal ganglia are unchanged from the noncontrast head CT on the previous day. Laminectomy in the cervical spine is seen at C4 with posterior fusion from C3 through C6 with bilateral screws and rods. Anterolisthesis of the C4 is noted with stenosis. There is no significant change compared to the CT myelogram on 10/18/2015. There is no mass or significant lymph node enlargement in the neck. IMPRESSION: 1. 80% or greater weblike stenosis in the proximal cervical right internal carotid artery. This may be restenosis or residual intimal flap post endarterectomy. 2. No significant left cervical carotid stenosis. 3. Moderate to severe stenosis of the origin of the left M1 segment.There is no other significant intracranial arterial disease in the anterior circulations. 4. Stenosis at the origin of the right vertebral artery. This may be due to atherosclerotic disease or partial jailing from the right subclavian stent. There is no other significant vertebrobasilar disease. [id number] 11/05/2016 - - Read by: Jayro Red MD Dictated Date/time: 11/06/16 08:31 Electronically Signed by: Jayro Red MD 11/06/16 08:56 FINAL REPORT [facility] CARDIAC ENZYMES Total CK 91 unit/L 12 - 191 11/05/2016 [facility] CARDIAC ENZYMES Troponin-I null 0.00 - 0.40 11/05/2016 [facility] CARDIAC ENZYMES Total CK 88 unit/L 12 - 191 11/05/2016 [facility] CARDIAC ENZYMES Troponin-I null 0.00 - 0.40 11/05/2016 [facility] CARDIAC ENZYMES CK MB Index 1.6 0.0 - 2.5 11/05/2016 [facility] CARDIAC ENZYMES CK MB 1.4 ng/mL 0.5 - 3.6 11/05/2016 [facility] CARDIAC ENZYMES CK MB Index 1.3 0.0 - 2.5 11/05/2016 [facility] CARDIAC ENZYMES CK MB 1.2 ng/mL 0.5 - 3.6 11/05/2016 [facility] CARDIAC ENZYMES CK MB Index 1.4 0.0 - 2.5 11/05/2016 [facility] CARDIAC ENZYMES BNP 329 pg/mL <=100 pg/mL 11/05/2016 [facility] CARDIAC ENZYMES Total CK 118 unit/L 12 - 191 11/05/2016 [facility] CARDIAC ENZYMES CK MB 1.6 ng/mL 0.5 - 3.6 11/05/2016 [facility] CHEM PANEL Lipase Lvl 59 unit/L 73 - 393 11/05/2016 [facility] Brain wo contrast CT Brain wo contrast CT CT BRAIN WITHOUT CONTRAST INDICATION: Headache with Dizziness and Giddiness - syncope, headache, fall, ct [id number] COMPARISON: CT brain 09/15/2016 DISCUSSION: There are generalized involutional changes of the brain and microangiopathic changes of the white matter. There are chronic lacunar infarcts of the bilateral basal ganglia. There is no evidence of acute vascular insults, space occupying lesions, hemorrhage, hydrocephalus, midline shift, or extra-axial fluid collections. The calvarium is intact. IMPRESSION: Chronic ischemic and age-related changes of the brain. No acute intracranial abnormalities are visualized. SL:[id number] 11/04/2016 - - Read by: Efrain Rendon MD Dictated Date/time: 11/04/16 21:14 Electronically Signed by: Efrain Rendon MD 11/04/16 21:16 FINAL REPORT [facility] Chest 1view DX Chest 1view DX Study: Frontal chest x-ray compared to 10/07/2016. History: Syncope Comments: The trachea is midline. The cardiomediastinal silhouette is normal in size. Left chest wall pacemaker in place. No pneumonia. No pleural effusions or pneumothorax. Impression: No acute cardiopulmonary disease. 11/04/2016 - - Read by: Adela Figueroa MD Dictated Date/time: 11/04/16 21:32 Electronically Signed by: Adela Figueroa MD 11/04/16 22:40 FINAL REPORT [facility] DRUG SCREEN U Phencyc Scr Negative *NA* (10/07/16 7:45 PM) Negative 10/08/2016 [facility] DRUG SCREEN UDS Note See Note (10/07/16 7:45 PM) 10/08/2016 [facility] DRUG SCREEN U Danae Scr Negative *NA* (10/07/16 7:45 PM) Negative 10/08/2016 [facility] DRUG SCREEN U Amph Scr Negative *NA* (10/07/16 7:45 PM) Negative 10/08/2016 [facility] DRUG SCREEN U Benzodia Scr Positive *ABN* (10/07/16 7:45 PM) Negative 10/08/2016 [facility] DRUG SCREEN U Cocaine Scr Negative *NA* (10/07/16 7:45 PM) Negative 10/08/2016 [facility] DRUG SCREEN U Cannab Scr Negative *NA* (10/07/16 7:45 PM) Negative 10/08/2016 [facility] DRUG SCREEN U Opiate Scr Positive *ABN* (10/07/16 7:45 PM) Negative 10/08/2016 [facility] URINE AND STOOL UA Bili Negative *NA* (10/07/16 7:45 PM) Negative 10/08/2016 [facility] URINE AND STOOL UA Nitrite Negative (10/07/16 7:45 PM) Negative 10/08/2016 [facility] URINE AND STOOL UA Leuk Est Negative (10/07/16 7:45 PM) Negative 10/08/2016 [facility] URINE AND STOOL UA Ketones Negative mg/dL Negative mg/dL 10/08/2016 [facility] URINE AND STOOL UA Mucus Few /LPF None Seen /LPF 10/08/2016 [facility] URINE [facility] STOOL UA RBC null 0 - 2 10/08/2016 [facility]INE [facility] STOOL UA WBC 2 /HPF 0 - 5 10/08/2016 [facility] URINE [facility] STOOL UA Renal Epi 1 /LPF <=0 /LPF 10/08/2016 [facility] URINE AND STOOL UA Hyal Cast 8 /LPF 0 - 2 10/08/2016 [facility] URINE AND STOOL UA Protein Negative mg/dL Negative mg/dL 10/08/2016 [facility] URINE AND STOOL UA Blood Negative (10/07/16 7:45 PM) Negative 10/08/2016 [facility] URINE AND STOOL UA Glucose Negative mg/dL Negative mg/dL 10/08/2016 [facility] URINE AND STOOL UA Urobilinogen <=1.0 mg/dL 0.1 - 1.0 10/08/2016 [facility] URINE AND STOOL UA Spec Grav 1.015 <=1.030 10/08/2016 [facility] URINE AND STOOL UA pH 6.0 5.0 - 8.0 10/08/2016 [facility] URINE AND STOOL UA Turbidity Clear (10/07/16 7:45 PM) Clear 10/08/2016 [facility] URINE AND STOOL UA Sq Epi None Seen 10/08/2016 [facility] URINE [facility] STOOL UA Color Yellow *NA* (10/07/16 7:45 PM) Yellow 10/08/2016 [facility] CARDIAC ENZYMES CK MB Index 0.7 0.0 - 2.5 10/08/2016 [facility] CARDIAC ENZYMES Troponin-I null 0.00 - 0.40 10/08/2016 [facility] CARDIAC ENZYMES CK MB 3.3 ng/mL 0.5 - 3.6 10/08/2016 [facility] CARDIAC ENZYMES Total CK 495 unit/L 12 - 191 10/08/2016 [facility] CHEM PANEL eGFR 59 mL/min/1.73m2 10/08/2016 Result Comment: The eGFR is calculated using the CKD-EPI formula. In most young, healthy individuals the eGFR will be >90 mL/min/1.73m2. The eGFR declines with age. An eGFR of 60-89 may be normal in some populations, particularly the elderly, for whom the CKD-EPI formula has not been extensively validated. Use of the eGFR is not recommended in the following populations: Individuals with unstable creatinine concentrations, including patients and those with serious co-morbid conditions. Patients with extremes in muscle mass or diet. The data above are obtained from the National Kidney Disease Education Program (NKDEP) which additionally recommends that when the eGFR is used in patients with extremes of body mass index for purposes of drug dosing, the eGFR should be multiplied by the estimated BMI. [facility] CHEM PANEL Globulin 4.2 g/dL 2.7 - 4.2 10/08/2016 [facility] CHEM PANEL A/G Ratio 0.8 0.7 - 1.6 10/08/2016 [facility] CHEM PANEL CO2 32 meq/L 24 - 32 10/08/2016 [facility] CHEM PANEL BUN 11 mg/dL 7 - 22 10/08/2016 [facility] CHEM PANEL Potassium Lvl 3.3 meq/L 3.5 - 5.1 10/08/2016 [facility] CHEM PANEL Chloride Lvl 98 meq/L 95 - 109 10/08/2016 [facility] CHEM PANEL Creatinine Lvl 1.20 mg/dL 0.50 - 1.40 10/08/2016 [facility] CHEM PANEL Sodium Lvl 140 meq/L 135 - 145 10/08/2016 [facility] CHEM PANEL Glucose Lvl 169 mg/dL 70 - 99 10/08/2016 [facility] CHEM PANEL Total Protein 7.7 g/dL 6.4 - 8.4 10/08/2016 [facility] CHEM PANEL Albumin Lvl 3.5 g/dL 3.5 - 5.0 10/08/2016 [facility] CHEM PANEL Calcium Lvl 10.2 mg/dL 8.5 - 10.5 10/08/2016 [facility] CHEM PANEL ALT 11 unit/L 0 - 65 10/08/2016 [facility] CHEM PANEL Alk Phos 103 unit/L 39 - 136 10/08/2016 [facility] CHEM PANEL Bili Total 0.4 mg/dL 0.2 - 1.3 10/08/2016 [facility] CHEM PANEL AST 18 unit/L 0 - 37 10/08/2016 [facility] CHEM PANEL AGAP 13.3 meq/L 10.0 - 20.0 10/08/2016 [facility] CHEM PANEL B/C Ratio 9 6 - 25 10/08/2016 [facility] HEMATOLOGY Eosinophils # 0.1 K/CMM 0.0 - 0.5 10/08/2016 [facility] HEMATOLOGY Monocytes # 0.7 K/CMM 0.0 - 0.8 10/08/2016 [facility] Lymphocytes # 2.0 K/CMM 1.0 - 5.5 10/08/2016 [facility] HEMATOLOGY Segs-Bands # 8.4 K/CMM 1.5 - 8.1 10/08/2016 [facility] Monocytes 6.7 % 2.0 - 12.0 10/08/2016 [facility] Lymphocytes 17.8 % 20.0 - 40.0 10/08/2016 [facility] Segs 74.7 % 45.0 - 75.0 10/08/2016 [facility] Basophils 0.1 % 0.0 - 1.0 10/08/2016 [facility] Eosinophils 0.7 % 0.0 - 4.0 10/08/2016 [facility] Hct 41.8 % 42.0 - 54.0 10/08/2016 [facility] Hgb 14.0 g/dL 14.0 - 18.0 10/08/2016 [facility] MPV 9.4 fL 7.4 - 10.4 10/08/2016 [facility] MCHC 33.4 g/dL 32.0 - 36.0 10/08/2016 [facility] MCH 28.1 pg 27.0 - 31.0 10/08/2016 [facility] MCV 84.1 fL 80.0 - 94.0 10/08/2016 [facility] Platelet 306 K/CMM 133 - 450 10/08/2016 [facility] RDW 14.9 % 11.5 - 14.5 10/08/2016 [facility] RBC 4.97 M/CMM 4.70 - 6.10 10/08/2016 [facility] WBC 11.2 K/CMM 3.7 - 10.4 10/08/2016 [facility] TOXICOLOGY Ethanol Lvl null 10/08/2016 [facility] TOXICOLOGY Etoh (%) null 10/08/2016 [facility] TOXICOLOGY Acetaminoph Lvl <2
(10/07/16 7:42 PM) 10 - 20 10/08/2016 [facility] TOXICOLOGY Salicylate Lvl null 0.0 - 30.0 10/08/2016 [facility] Brain wo contrast CT Brain wo contrast CT Addendum: I agree with the above report HISTORY: Altered mental status, obtunded COMPARISON: CT brain 09/15/2016 EXAM: CT head TECHNIQUE: Axial images were obtained from the foramen magnum to the vertex without the use of intravenous contrast on a multidetector CT. Sagittal and coronal reformats. DLP: mGy-cm FINDINGS: Advanced parenchymal atrophy for age with chronic small vessel ischemic changes in the cerebral white matter. 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 Calcification carotid arteries. No discrete mass, edema, mass effect or midline shift. Ventricles are normal size. No intracranial hemorrhage is seen. No depressed skull fracture is seen. The visualized paranasal sinuses and mastoid air cells are clear. IMPRESSION: No acute finding. : [id number] 10/07/2016 - - Read by: Adela Figueroa MD Dictated Date/time: 10/07/16 22:36 Electronically Signed by: Adela Figueroa MD 10/07/16 22:36 FINAL REPORT - - Read by: Ricardo Rivera MD Dictated Date/time: 10/07/16 21:36 Electronically Signed by: Ricardo Rivera MD 10/07/16 21:39 FINAL REPORT [facility] Chest 1view DX Chest 1view DX Portable chest: The left subclavian pacemaker lead is in satisfactory position. The cardiac silhouette and pulmonary vasculature are within normal limits. The lungs and pleural spaces are clear. There is no significant change compared to 09/15/2016. IMPRESSION: No acute radiographic abnormality in the chest. DLAWRENCE-PC 10/07/2016 - - Read by: Jayro Red MD Dictated Date/time: 10/07/16 19:50 Electronically Signed by: Jayro Red MD 10/07/16 19:51 FINAL REPORT [facility] ANEMIA STUDY Vitamin B12 Lvl 531 pg/mL 254 - 1320 09/16/2016 [facility] CHEM PANEL Albumin Lvl 3.2 g/dL 3.5 - 5.0 09/16/2016 [facility] CHEM PANEL AGAP 9.8 meq/L 10.0 - 20.0 09/16/2016 [facility] CHEM PANEL CO2 33 meq/L 24 - 32 09/16/2016 [facility] CHEM PANEL Chloride Lvl 105 meq/L 95 - 109 09/16/2016 [facility] CHEM PANEL Potassium Lvl 3.8 meq/L 3.5 - 5.1 09/16/2016 [facility] CHEM PANEL Total Protein 6.7 g/dL 6.4 - 8.4 09/16/2016 [facility] CHEM PANEL B/C Ratio 8 6 - 25 09/16/2016 [facility] CHEM PANEL Sodium Lvl 144 meq/L 135 - 145 09/16/2016 [facility] CHEM PANEL Creatinine Lvl 1.20 mg/dL 0.50 - 1.40 09/16/2016 [facility] CHEM PANEL Calcium Lvl 8.8 mg/dL 8.5 - 10.5 09/16/2016 [facility] CHEM PANEL BUN 10 mg/dL 7 - 09/16/2016 [facility] CHEM PANEL Glucose Lvl 102 mg/dL 70 - 99 09/16/2016 [facility] CHEM PANEL eGFR 59 mL/min/1.73m2 09/16/2016 Result Comment: The eGFR is calculated using the CKD-EPI formula. In most young, healthy individuals the eGFR will be >90 mL/min/1.73m2. The eGFR declines with age. An eGFR of 60-89 may be normal in some populations, particularly the elderly, for whom the CKD-EPI formula has not been extensively validated. Use of the eGFR is not recommended in the following populations: Individuals with unstable creatinine concentrations, including patients and those with serious co-morbid conditions. Patients with extremes in muscle mass or diet. The data above are obtained from the National Kidney Disease Education Program (NKDEP) which additionally recommends that when the eGFR is used in patients with extremes of body mass index for purposes of drug dosing, the eGFR should be multiplied by the estimated BMI. [facility] CHEM PANEL Alk Phos 88 unit/L 39 - 136 09/16/2016 [facility] CHEM PANEL AST 12 unit/L 0 - 37 09/16/2016 [facility] CHEM PANEL ALT 11 unit/L 0 - 65 09/16/2016 [facility] CHEM PANEL A/G Ratio 0.9 0.7 - 1.6 09/16/2016 [facility] CHEM PANEL Globulin 3.5 g/dL 2.7 - 4.2 09/16/2016 [facility] CHEM PANEL Bili Total 0.5 mg/dL 0.2 - 1.3 09/16/2016 [facility] HEMATOLOGY Lymphocytes 24.4 % 20.0 - 40.0 09/16/2016 [facility] HEMATOLOGY Segs 65.1 % 45.0 - 75.0 09/16/2016 [facility] HEMATOLOGY Lymphocytes # 2.0 K/CMM 1.0 - 5.5 09/16/2016 [facility] HEMATOLOGY Monocytes # 0.7 K/CMM 0.0 - 0.8 09/16/2016 [facility] HEMATOLOGY Eosinophils # 0.2 K/CMM 0.0 - 0.5 09/16/2016 [facility] HEMATOLOGY Segs-Bands # 5.2 K/CMM 1.5 - 8.1 09/16/2016 [facility] HEMATOLOGY Eosinophils 2.1 % 0.0 - 4.0 09/16/2016 [facility] HEMATOLOGY Basophils 0.2 % 0.0 - 1.0 09/16/2016 [facility] HEMATOLOGY Monocytes 8.2 % 2.0 - 12.0 09/16/2016 [facility] MCH 27.9 pg 27.0 - 31.0 09/16/2016 [facility] MCV 84.5 fL 80.0 - 94.0 09/16/2016 [facility] HEMATOLOGY Hct 37.9 % 42.0 - 54.0 09/16/2016 [facility] Hgb 12.5 g/dL 14.0 - 18.0 09/16/2016 [facility] RBC 4.49 M/CMM 4.70 - 6.10 09/16/2016 [facility] WBC 8.0 K/CMM 3.7 - 10.4 09/16/2016 [facility] RDW 14.4 % 11.5 - 14.5 09/16/2016 [facility] MCHC 33.1 g/dL 32.0 - 36.0 09/16/2016 [facility] HEMATOLOGY MPV 9.2 fL 7.4 - 10.4 09/16/2016 [facility] Platelet 213 K/CMM 133 - 450 09/16/2016 [facility] IMMUNOLOGY RPR Non Reactive (09/16/16 3:47 AM) Non Reactive 09/16/2016 [facility] LIPIDS Chol 167 mg/dL <=199 mg/dL 09/16/2016 [facility] LIPIDS Trig 183 mg/dL <=149 mg/dL 09/16/2016 [facility] LIPIDS VLDL 37 09/16/2016 [facility] LIPIDS LDL (Calculated) 92 mg/dL <=99 mg/dL 09/16/2016 [facility] LIPIDS HDL 38 mg/dL >=61 mg/dL 09/16/2016 [facility] LIPIDS CHD Risk 4.39 4.00 - 7.30 09/16/2016 [facility] SPECIAL CHEMISTRY Hgb A1C 5.9 % <=5.6 % 09/16/2016 [facility] CARDIAC ENZYMES Total CK 74 unit/L - 09/16/2016 [facility] CARDIAC ENZYMES Troponin-I null 0.00 - 0.40 09/16/2016 [facility] CARDIAC ENZYMES Troponin-I null 0.00 - 0.40 09/15/2016 [facility] CARDIAC ENZYMES Total CK 51 unit/L - 09/15/2016 [facility] CARDIAC ENZYMES Total CK 53 unit/L - 09/15/2016 [facility] CARDIAC ENZYMES Troponin-I null 0.00 - 0.40 09/15/2016 [facility] CHEM PANEL eGFR 42 mL/min/1.73m2 09/15/2016 Result Comment: The eGFR is calculated using the CKD-EPI formula. In most young, healthy individuals the eGFR will be >90 mL/min/1.73m2. The eGFR declines with age. An eGFR of 60-89 may be normal in some populations, particularly the elderly, for whom the CKD-EPI formula has not been extensively validated. Use of the eGFR is not recommended in the following populations: Individuals with unstable creatinine concentrations, including patients and those with serious co-morbid conditions. Patients with extremes in muscle mass or diet. The data above are obtained from the National Kidney Disease Education Program (NKDEP) which additionally recommends that when the eGFR is used in patients with extremes of body mass index for purposes of drug dosing, the eGFR should be multiplied by the estimated BMI. [facility] CHEM PANEL Bili Total 0.6 mg/dL 0.2 - 1.3 09/15/2016 [facility] CHEM PANEL BUN 15 mg/dL 7 - 09/15/2016 [facility] CHEM PANEL Creatinine Lvl 1.60 mg/dL 0.50 - 1.40 09/15/2016 [facility] CHEM PANEL Sodium Lvl 141 meq/L 135 - 145 09/15/2016 [facility] CHEM PANEL Potassium Lvl 3.4 meq/L 3.5 - 5.1 09/15/2016 [facility] CHEM PANEL CO2 27 meq/L 24 - 32 09/15/2016 [facility] CHEM PANEL Chloride Lvl 101 meq/L 95 - 109 09/15/2016 [facility] CHEM PANEL Calcium Lvl 9.1 mg/dL 8.5 - 10.5 09/15/2016 [facility] CHEM PANEL Total Protein 7.2 g/dL 6.4 - 8.4 09/15/2016 [facility] CHEM PANEL Glucose Lvl 180 mg/dL 70 - 99 09/15/2016 [facility] CHEM PANEL AST 11 unit/L 0 - 37 09/15/2016 [facility] CHEM PANEL ALT 11 unit/L 0 - 65 09/15/2016 [facility] CHEM PANEL Albumin Lvl 3.6 g/dL 3.5 - 5.0 09/15/2016 [facility] CHEM PANEL Alk Phos 101 unit/L 39 - 136 09/15/2016 [facility] CHEM PANEL Globulin 3.6 g/dL 2.7 - 4.2 09/15/2016 [facility] CHEM PANEL AGAP 16.4 meq/L 10.0 - 20.0 09/15/2016 [facility] CHEM PANEL B/C Ratio 9 6 - 25 09/15/2016 [facility] CHEM PANEL A/G Ratio 1.0 0.7 - 1.6 09/15/2016 [facility] HEMATOLOGY MPV 9.0 fL 7.4 - 10.4 09/15/2016 [facility] HEMATOLOGY Platelet 259 K/CMM 133 - 450 09/15/2016 [facility] HEMATOLOGY Hct 41.9 % 42.0 - 54.0 09/15/2016 [facility] MCV 84.3 fL 80.0 - 94.0 09/15/2016 [facility] MCH 27.8 pg 27.0 - 31.0 09/15/2016 [facility] MCHC 33.0 g/dL 32.0 - 36.0 09/15/2016 [facility] HEMATOLOGY RDW 14.3 % 11.5 - 14.5 09/15/2016 [facility] HEMATOLOGY WBC 10.6 K/CMM 3.7 - 10.4 09/15/2016 [facility] HEMATOLOGY RBC 4.97 M/CMM 4.70 - 6.10 09/15/2016 [facility] HEMATOLOGY Hgb 13.8 g/dL 14.0 - 18.0 09/15/2016 [facility] HEMATOLOGY Monocytes # 0.6 K/CMM 0.0 - 0.8 09/15/2016 [facility] HEMATOLOGY Eosinophils # 0.1 K/CMM 0.0 - 0.5 09/15/2016 [facility] HEMATOLOGY Basophils 0.3 % 0.0 - 1.0 09/15/2016 [facility] HEMATOLOGY Lymphocytes # 2.3 K/CMM 1.0 - 5.5 09/15/2016 [facility] Segs-Bands # 7.6 K/CMM 1.5 - 8.1 09/15/2016 [facility] Monocytes 5.4 % 2.0 - 12.0 09/15/2016 [facility] Eosinophils 1.3 % 0.0 - 4.0 09/15/2016 [facility] Segs 71.7 % 45.0 - 75.0 09/15/2016 [facility] Lymphocytes 21.3 % 20.0 - 40.0 09/15/2016 [facility] INR 0.97 0.85 - 1.17 09/15/2016 [facility] PT 13.1 s 12.0 - 14.7 09/15/2016 [facility] PTT 25.2 s 22.9 - 35.8 09/15/2016 [facility] Brain wo contrast CT Brain wo contrast CT Patient Name: FAUD ERAZO : 1940; Age: 76 years y/o Male MR: [id number] Study: Brain wo contrast CT 09/15/2016 11:24 AM CDT Ordering Physician: Humberto Maciel MD Comparison: 09/22/2015 CT Radiation Dose DLP mGy-cm Clinical Indication: pt to ER for witnessed seizure . pt pale, diaphoretic, voided in pants; seizure - new onset - dlp: 981.84; ; Multiple computerized axial tomograms of the head were obtained without contrast. 2-D coronal and sagittal reformatted images were obtained. Age- appropriate cortical and cerebellar volume loss is noted with compensatory enlargement of the ventricles and subarachnoid spaces. Vascular calcification is noted at the carotid siphons and/or vertebrobasilar arteries. There is no acute cortical infarction, hemorrhage or mass lesion noted. No mass effect or midline shift. Ventricles are otherwise normal in size, shape and position. The base of skull and bony calvarium are intact. Chronic appearing lacunar infarctions are noted at the basal ganglia bilaterally. Mild chronic microangiopathic change of the periventricular white matter bilaterally. Mastoid air cells and paranasal sinuses are otherwise clear. IMPRESSION: 1. No acute intracranial abnormality. 2. Interval demonstration of chronic appearing lacunar infarctions at the basal ganglia bilaterally. 3. Otherwise, senescent and chronic ischemic changes are noted intracranially similar to the previous exam. : [id number] 09/15/2016 - - Read by: Lee Gipson MD Dictated Date/time: 09/15/16 12:57 Electronically Signed by: Lee Gipson MD 09/15/16 13:00 FINAL REPORT [facility] Chest 1view DX Chest 1view DX Portable chest: The left subclavian pacemaker lead is in satisfactory position. There is mild calcification in the aortic arch. The cardiomediastinal silhouette, pulmonary vasculature and payton are otherwise within normal limits. The lungs and pleural spaces are clear. There are no acute osseous abnormalities. There is no significant change compared to 09/23/2015. IMPRESSION: No acute radiographic abnormalities in the chest. [id number] 09/15/2016 - - Read by: Jayro Red MD Dictated Date/time: 09/15/16 12:01 Electronically Signed by: Jayro Red MD 09/15/16 12:02 FINAL REPORT [facility] Spine lumbar myelogram CT Spine lumbar myelogram CT EXAM: CT MYELOGRAM LUMBAR SPINE EXAM: CT MYELOGRAM THORACIC SPINE DATE: 10/18/2015 8:05 AM CDT INDICATION: Pain with radiculopathy. COMPARISON: 09/22/2015 L-sp[address] CT TECHNIQUE: Volumetric acquisition of the lumbar and thoracic spine, from the level of skull base to S2. Intrathecal contrast was administered prior to the examination. Please see corresponding report for details. DLP: 1389 mGy-cm FINDINGS: THORACIC SPINE: T1-T8: Normal disc and endplates. A 2 centimeter pulmonary nodule is present in the left lower lobe at the level of T7. The pulmonary density is not visible on the AP view of the chest of 09/23/2015. T8-T9. Degenerative disc collapse with endplate sclerosis and posterior osteophytosis effacing the anterior thecal sac. Bilateral facet hypertrophy. T9-T10: Normal. T10-T11: Left intraforaminal disc extrusion with encroachment of the exiting left T10 nerve root and indenting the left thecal sac. 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 T11-T12: Degenerative disc height loss with reactive endplate sclerosis. Diffuse disc bulge of the posterior annulus, ligamentum flavum hypertrophy and facet hypertrophy. All these findings result in constriction of the thecal sac and crowding of the descending nerve roots. T12-L1: Normal LUMBAR SPINE: L1-L2: Degenerative disc height loss with reactive endplate osteophytosis, diffuse disc bulge, ligamental flavum hypertrophy and bilateral facet hypertrophy with resultant constriction of the thecal sac and crowding of the cauda equina nerve roots. Severe right neural foramen narrowing with impingement of the exiting right L1 nerve root. A degenerative subchondral cyst is again noted along the superior endplate of L2 posteriorly. L2-L3: Bilateral facet hypertrophy with widening of the synovial space, ligamentum flavum hypertrophy and diffuse disc bulge with resulting constriction of the thecal sac and crowding of the cauda equina. L3-L4: Degenerative disc collapse with gas formation in the disc remnant. There are reactive circumferential endplate spurs present. Again noted is minimal anterior subluxation of L3 on L4 as well as bilateral degenerative facet changes. In conjunction with the bone spurs at this level there is critical stenosis of the spinal canal with compression of the cauda equina. Also noted is moderate bilateral neural foraminal narrowing with encroachment of the exiting L3 nerve roots. L4-L5: Minimal anterior subluxation of L4 on L5 with ankylosis of the disc space. Moderate narrowing of the right neural foramen. Enlarged descending L5 nerves. Bilateral facet hypertrophy. L5-S1: There is postoperative ankylosis. Also, calcification of a protruded remnant of the posterior annulus. Degenerative facet enlargement. In combination these changes result in bilateral foraminal stenosis with encroachment of the exiting L5 nerve roots. SURGICAL CONSTRUCT: Status post anterior interbody fusion at L4-L5 and L5-S1 with ankylosis at these levels. Posterior stabilization with a zaria and screw fixation with paired transpedicular screws at L4, L5 and S1.Status post laminectomies at L4 and L5. No evidence of hardware loosening or failure. Stable appearance of the bone graft harvest site within the right iliac bone. IMPRESSION: 1. Cauda equina compression at L3-L4. 2. Multilevel disc obliteration of the lumbar and thoracic spine, particularly at T8-T9, T11-T12, L1-L2, and L3-L4. Also noted is ankylosis at L4-L5 and L5-S1. Axial 3. 3. Foraminal stenoses at T10-T11, L1-L2, L3-L4, L4-L5, and L5-S1. 4. Intraforaminal disc extrusion at T10-T11 on the left encroaching upon the exiting left T10 nerve root. 5. Thecal sac constriction and crowding of descending nerve roots at T11-T12, and L1-L2. 6. The surgical fixation hardware remains intact. 7. Two (2) cm keeley density in the lower lobe of the left lung not visible on a previous lung x-ray. 10/18/2015 - - This report was dictated by a Jewelry Repairer/Fellow. I have personally reviewed the images as well as the Resident's interpretation and agree with the findings. Read by: Matthew Abdul MD Resident: Matthew Abdul MD Dictated Date/time: 10/18/15 12:19 Electronically Signed by: Yoseph White MD 10/18/15 18:58 FINAL REPORT [facility] Spine thoracic myelogram CT Spine thoracic myelogram CT EXAM: CT MYELOGRAM LUMBAR SPINE EXAM: CT MYELOGRAM THORACIC SPINE DATE: 10/18/2015 8:05 AM CDT INDICATION: Pain with radiculopathy. COMPARISON: 09/22/[address] TECHNIQUE: Volumetric acquisition of the lumbar and thoracic spine, from the level of skull base to S2. Intrathecal contrast was administered prior to the examination. Please see corresponding report for details. DLP: 1389 mGy-cm FINDINGS: THORACIC SPINE: T1-T8: Normal disc and endplates. A 2 centimeter pulmonary nodule is present in the left lower lobe at the level of T7. The pulmonary density is not visible on the AP view of the chest of 09/23/2015. T8-T9. Degenerative disc collapse with endplate sclerosis and posterior osteophytosis effacing the anterior thecal sac. Bilateral facet hypertrophy. T9-T10: Normal. T10-T11: Left intraforaminal disc extrusion with encroachment of the exiting left T10 nerve root and indenting the left thecal sac. 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 T11-T12: Degenerative disc height loss with reactive endplate sclerosis. Diffuse disc bulge of the posterior annulus, ligamentum flavum hypertrophy and facet hypertrophy. All these findings result in constriction of the thecal sac and crowding of the descending nerve roots. T12-L1: Normal LUMBAR SPINE: L1-L2: Degenerative disc height loss with reactive endplate osteophytosis, diffuse disc bulge, ligamental flavum hypertrophy and bilateral facet hypertrophy with resultant constriction of the thecal sac and crowding of the cauda equina nerve roots. Severe right neural foramen narrowing with impingement of the exiting right L1 nerve root. A degenerative subchondral cyst is again noted along the superior endplate of L2 posteriorly. L2-L3: Bilateral facet hypertrophy with widening of the synovial space, ligamentum flavum hypertrophy and diffuse disc bulge with resulting constriction of the thecal sac and crowding of the cauda equina. L3-L4: Degenerative disc collapse with gas formation in the disc remnant. There are reactive circumferential endplate spurs present. Again noted is minimal anterior subluxation of L3 on L4 as well as bilateral degenerative facet changes. In conjunction with the bone spurs at this level there is critical stenosis of the spinal canal with compression of the cauda equina. Also noted is moderate bilateral neural foraminal narrowing with encroachment of the exiting L3 nerve roots. L4-L5: Minimal anterior subluxation of L4 on L5 with ankylosis of the disc space. Moderate narrowing of the right neural foramen. Enlarged descending L5 nerves. Bilateral facet hypertrophy. L5-S1: There is postoperative ankylosis. Also, calcification of a protruded remnant of the posterior annulus. Degenerative facet enlargement. In combination these changes result in bilateral foraminal stenosis with encroachment of the exiting L5 nerve roots. SURGICAL CONSTRUCT: Status post anterior interbody fusion at L4-L5 and L5-S1 with ankylosis at these levels. Posterior stabilization with a zaria and screw fixation with paired transpedicular screws at L4, L5 and S1.Status post laminectomies at L4 and L5. No evidence of hardware loosening or failure. Stable appearance of the bone graft harvest site within the right iliac bone. IMPRESSION: 1. Cauda equina compression at L3-L4. 2. Multilevel disc obliteration of the lumbar and thoracic spine, particularly at T8-T9, T11-T12, L1-L2, and L3-L4. Also noted is ankylosis at L4-L5 and L5-S1. Axial 3. 3. Foraminal stenoses at T10-T11, L1-L2, L3-L4, L4-L5, and L5-S1. 4. Intraforaminal disc extrusion at T10-T11 on the left encroaching upon the exiting left T10 nerve root. 5. Thecal sac constriction and crowding of descending nerve roots at T11-T12, and L1-L2. 6. The surgical fixation hardware remains intact. 7. Two (2) cm keeley density in the lower lobe of the left lung not visible on a previous lung x-ray. 10/18/2015 - - This report was dictated by a Jewelry Repairer/Fellow. I have personally reviewed the images as well as the Resident's interpretation and agree with the findings. Read by: Matthew Abdul MD Resident: Matthew Abdul MD Dictated Date/time: 10/18/15 12:19 Electronically Signed by: Yoseph White MD 10/18/15 18:58 FINAL REPORT [facility] Spine cervical myelogram CT Spine cervical myelogram CT EXAM: CT MYELOGRAM CERVICAL SPINE DATE: 10/18/2015 at 0959 hours INDICATION: Pain with radiculopathy COMPARISON: CT cervical spine of 09/22/2015 TECHNIQUE: Intrathecal contrast was administered prior to the examination. Please see corresponding report for full details. Volumetric CT acquisition of the cervical spine. Axial, sagittal and coronal reconstructions. The study complements the previous CT images DLP: 1449 mGy-cm FINDINGS: GENERAL: Status post anterior interbody fusion at C5-C6 and C6-C7. The fusion is solid. There has been a posterior zaria and screw fixation from C3 to C6 with paired facet screws. A radiolucent halo is noted along the tip of the right facet screw at C3. INDIVIDUAL LEVELS: C3-C4: Degenerative loss of disc height. The vertebral bone spurs with marked foraminal stenosis on the right impinging on the exiting C4 nerve root and mild to moderate stenosis on the left slightly encroaching upon the exiting C4 nerve root on the left. C4-C5: There is almost 50% anterior subluxation of C4 on C5. The intervening disc is obliterated. There is reactive sclerosis of the opposing endplates associated with subchondral cyst formation along the superior endplate of C5. The cord is draped around the superior endplate of C5. There is marked thinning of the cord at the level of superior endplate and body of C5 vertebra. There has been a partial laminectomy of C4 and a more extensive laminectomy of C5. C5-C6: There is interbody fusion on the right with a visible disc remnant on the left. C6-C7: This level is fused. The foramina are patent. C7-T1: Degenerative facet joint sclerosis. Patent spinal canal and foramina. Normal posterior annulus. T1-T2: There is degenerative disc obliteration with reactive endplate sclerosis along with erosive changes and subchondral cyst formation of the superior endplate of C2. There is kyphosis at this level. IMPRESSION: 1. Spinal stenosis due to grade 2 anterolisthesis at C4-C5 with cord compression by the superior endplate of C5 and cord atrophy at the level of the decompressive laminectomy of C5. 2. Posterior zaria and screw fixation from C3 to C6 with loosening of the C3-C4 facet screw on the right. Status post laminectomies of C4 and C5. 3. Foraminal stenosis at C3-C4 on the right with impingement upon the exiting right C4 nerve root. 4. Solid anterior interbody fusion from C5 through C7. 5. Postoperative kyphosis T1-T2 with degenerative disc obliteration, reactive endplate sclerosis and diffuse endplate osteophytes (spondylosis). 10/18/2015 - - Read by: Yoseph White MD Dictated Date/time: 10/18/15 19:36 Electronically Signed by: Yoseph White MD 10/18/15 20:27 FINAL REPORT [facility] Spine myelogram complete DX Spine myelogram complete DX EXAM: FLUOROSCOPY-GUIDED LUMBAR PUNCTURE FOR CT MYELOGRAM DATE: 10/18/2015 at 0827 hours INDICATION: Radiculopathy COMPARISON: None PROCEDURE: An interlaminar lumbar puncture was carried out under fluoroscopic guidance with a 22 gauge 3.5" long spinal Quincke needle at the level of L1-L2 to under the usual sterile conditions and local anesthesia. 10 mL of Iohexol-the 100 was instilled into the lumbar thecal sac and maneuvered into the thoracic and cervical spine mainly by keeping the patient in a decubitus position for approximately 1 hour. The patient tolerated the procedure well and was subsequently sent for CT. FLUOROSCOPIC TIME: 32 conference with a DAP of 0.9226 Gycm2 a holdup to the flow of contrast at L3-L4 level with a small amount of contrast gradually entering the lower thecal sac which was greatly facilitated by having the patient erect or brief moment. MYELOGRAMS. Digital images of the lumbar spine show that is post anterior interbody fusion at L4-L5 and L5-S1. Degenerative disc collapse is present at L3-L4 along with a left convex scoliosis. Status post L4 and L5 laminectomies. Posterior stabilization hardware is present with a zaria and screw fixation at L4, L5 and S1. The thecal sac is stenosed from L4 to S1. IMPRESSION: Successful lumbar puncture for the purposes of a CT myelogram of the cervical, thoracic and lumbar spine. 10/18/2015 - - Read by: Yoseph White MD Dictated Date/time: 10/18/15 20:29 Electronically Signed by: Yoseph White MD 10/18/15 20:37 FINAL REPORT [facility] CHEM PANEL Magnesium Lvl 2.1 mg/dL 1.8 - 2.4 09/23/2015 [facility] CHEM PANEL Phosphorus 3.1 mg/dL 2.5 - 4.5 09/23/2015 [facility] CHEM PANEL eGFR 84 mL/min/1.73m2 09/23/2015 Result Comment: The eGFR is calculated using the CKD-EPI formula. In most young, healthy individuals the eGFR will be >90 mL/min/1.73m2. The eGFR declines with age. An eGFR of 60-89 may be normal in some populations, particularly the elderly, for whom the CKD-EPI formula has not been extensively validated. Use of the eGFR is not recommended in the following populations: Individuals with unstable creatinine concentrations, including patients and those with serious co-morbid conditions. Patients with extremes in muscle mass or diet. The data above are obtained from the National Kidney Disease Education Program (NKDEP) which additionally recommends that when the eGFR is used in patients with extremes of body mass index for purposes of drug dosing, the eGFR should be multiplied by the estimated BMI. [facility] CHEM PANEL Calcium Lvl 8.9 mg/dL 8.5 - 10.5 09/23/2015 [facility] CHEM PANEL CO2 32 meq/L 24 - 32 09/23/2015 [facility] CHEM PANEL Chloride Lvl 105 meq/L 95 - 109 09/23/2015 [facility] CHEM PANEL Glucose Lvl 90 mg/dL 70 - 99 09/23/2015 [facility] CHEM PANEL BUN 8 mg/dL 7 - 22 09/23/2015 [facility] CHEM PANEL Potassium Lvl 3.4 meq/L 3.5 - 5.1 09/23/2015 [facility] CHEM PANEL Sodium Lvl 144 meq/L 135 - 145 09/23/2015 [facility] CHEM PANEL Creatinine Lvl 0.90 mg/dL 0.50 - 1.40 09/23/2015 [facility] CHEM PANEL AGAP 10.4 meq/L 10.0 - 20.0 09/23/2015 [facility] HEMATOLOGY MCHC 33.3 g/dL 32.0 - 36.0 09/23/2015 [facility] HEMATOLOGY MPV 8.5 fL 7.4 - 10.4 09/23/2015 [facility] HEMATOLOGY Platelet 260 K/CMM 133 - 450 09/23/2015 [facility] HEMATOLOGY RDW 14.2 % 11.5 - 14.5 09/23/2015 [facility] HEMATOLOGY WBC 6.5 K/CMM 3.7 - 10.4 09/23/2015 [facility] HEMATOLOGY MCV 90.2 fL 80.0 - 94.0 09/23/2015 [facility] HEMATOLOGY Hct 39.2 % 42.0 - 54.0 09/23/2015 [facility] HEMATOLOGY MCH 30.0 pg 27.0 - 31.0 09/23/2015 [facility] HEMATOLOGY RBC 4.35 M/CMM 4.70 - 6.10 09/23/2015 [facility] HEMATOLOGY Hgb 13.1 g/dL 14.0 - 18.0 09/23/2015 [facility] HEMATOLOGY Basophils 0.4 % 0.0 - 1.0 09/23/2015 [facility] HEMATOLOGY Segs-Bands # 3.6 K/CMM 1.5 - 8.1 09/23/2015 [facility] HEMATOLOGY Monocytes # 0.6 K/CMM 0.0 - 0.8 09/23/2015 [facility] HEMATOLOGY Lymphocytes # 2.1 K/CMM 1.0 - 5.5 09/23/2015 [facility] HEMATOLOGY Eosinophils # 0.2 K/CMM 0.0 - 0.5 09/23/2015 [facility] HEMATOLOGY Eosinophils 2.5 % 0.0 - 4.0 09/23/2015 [facility] HEMATOLOGY Monocytes 9.2 % 2.0 - 12.0 09/23/2015 [facility] HEMATOLOGY Lymphocytes 32.3 % 20.0 - 40.0 09/23/2015 [facility] HEMATOLOGY Segs 55.6 % 45.0 - 75.0 09/23/2015 [facility] PARATHYROID PROFILE Ca Ion WB 1.05 mMol/L 1.05 - 1.25 09/23/2015 [facility] PARATHYROID PROFILE Ca Norm WB 1.08 mMol/L 1.05 - 1.25 09/23/2015 [facility] Chest 1view DX Chest 1view DX EXAM: XR CHEST 1 VIEW DATE: 09/23/2015 3:00 AM CDT INDICATION: Abnormal chest sounds COMPARISON: 09/21/2015 TECHNIQUE: AP chest IMPRESSION: Stable left pacemaker device. Right subclavian stent graft again seen. Stable cardiomediastinal silhouette. Nonspecific linear reticular opacity in the left lung base could be from scarring as better seen on the prior radiograph. There is calcified aortic arch. Post surgical changes of the cervical spine. 09/23/2015 - - Read by: Josue Grimaldo MD Dictated Date/time: 09/23/15 08:58 Electronically Signed by: Josue Grimaldo 09/23/15 09:01 FINAL REPORT [facility] Spine lumbar wo contrast CT Spine lumbar wo contrast CT EXAM: CT LUMBAR SPINE WITHOUT CONTRAST DATE: 09/22/2015 8:15 AM CDT INDICATION: Backache COMPARISON: CT L-spine dated 01/16/2009 TECHNIQUE: Volumetric CT acquisition of the lumbar spine without contrast. Axial, sagittal and coronal reconstructions. IV contrast: None. DLP: 1626 mGy-cm FINDINGS: The bones demonstrate diffuse osteopenia. No acute fracture or malalignment identified. Postsurgical changes of posterior spinal fusion at the levels of L4-S1, with laminectomy at L4 and L5 are again noted. Progressive degenerative changes seen about the transpedicular screw at L4 on the right, which is now seen extending beyond the superior endplate cortex, with mild depression in this region (series 18 A, image 29); these findings appear to be progressively becoming worse, dating back to 2005. Unchanged, grade 1 anterolisthesis of L3-L4 and L4-L5 noted. Moderate but progressed degenerative changes of the L1-L2 and worse at L3-L4 disc space is noted, with opposing endplate sclerosis and cystic changes. Facet arthropathy at L4, resulting in moderate narrowing of the spinal canal this level. Persistent lucency seen in the right iliac bone (series 15, image 36), are in keeping with bone graft harvest site. Unchanged sclerosis of the sacrum on the left, near the sacroiliac joint. Calcified atherosclerotic disease of the aorta is noted. IMPRESSION: 1. No acute fracture identified. Diffuse osteopenia. 2. Stable grade 1 anterolisthesis of L3-L4 and L4-L5. 3. Stable postsurgical appearance of L4-S1 spinal fusion and laminectomy. 4. Slight progressive depression of the L4 superior endplate on the right, with the associated transpedicular screw now extending beyond the cortex. 5. Moderate degenerative disc disease at L1-L2 and L3-L4. 09/22/2015 - - This report was dictated by a Jewelry Repairer/Fellow. I have personally reviewed the images as well as the Resident's interpretation and agree with the findings. Read by: Erendira Martinez MD Resident: Erendira Martinez MD Dictated Date/time: 09/22/15 10:47 Electronically Signed by: Deon Wall MD 09/22/15 12:00 FINAL REPORT [facility] Spine cervical wo contrast CT Spine cervical wo contrast CT EXAM: CT CERVICAL SPINE WITHOUT CONTRAST DATE: 09/22/2015 8:15 AM CDT INDICATION: Backache ; status post fall 2 days ago COMPARISON: None available TECHNIQUE: Volumetric CT acquisition of the cervical spine without contrast. Axial, sagittal and coronal reconstructions. IV contrast: None. DLP: 1626 mGy-cm FINDINGS: The spine is imaged from the skull base to the level of T2. No acute fracture identified. Grade 2 anterolisthesis of C4-C5, with resultant narrowing of the spinal canal at this level, measuring approximately 8 mm. Postsurgical changes of posterior spinal fusion at C3-C6, with laminectomies at C3-C5. Perihardware lucencies are noted at all levels, but most prominent at the most cephalad screw on the left. The second most cephalad screws bilaterally appear to be entering the chronically widened facet joints. Vertebral body fusion of the C5-C7 vertebral bodies. Extensive degenerative disc changes at T1-T2 level. No significant soft tissue abnormality. Left automatic implantable cardiac defibrillator and leads are partially visualized. IMPRESSION: 1. No acute fracture identified. 2. Postsurgical changes of posterior spinal fusion at C3-C6 and C4 and C5 laminectomies. 3. Grade 2 anterolisthesis C4-C5, and narrowing of the spinal canal this level. Recommend correlation with physical exam to determine chronicity of this finding. 4. Loosening of the spinal fusion screws, most prominent at the left C4-C5 screw and intra-articular positioning of the second most cephalad bilateral screws within the C4-C5 facet joint spaces. 5. Extensive degenerative changes of the subjacent cervical and thoracic spine. 09/22/2015 - - This report was dictated by a Jewelry Repairer/Fellow. I have personally reviewed the images as well as the Resident's interpretation and agree with the findings. Read by: Erendira Martinez MD Resident: Erendira Martinez MD Dictated Date/time: 09/22/15 10:55 Electronically Signed by: Deon Wall MD 09/22/15 11:23 FINAL REPORT [facility] Brain wo contrast CT Brain wo contrast CT EXAM: CT BRAIN WITHOUT CONTRAST DATE: 12/17/2015 at 12:13 AM INDICATION: Bleeding COMPARISON: CT brain from 09/21/2015 TECHNIQUE: Noncontrast axial imaging of the brain was acquired from the vertex to the skull base. DLP: 1271mGy-cm FINDINGS: Stable small right frontal subcortical hemorrhage with mild surrounding edema. Microangiopathic changes without new parenchymal abnormality elsewhere. Stable ventricular size. Remainder of the exam is unchanged. IMPRESSION: Stable right frontal subcortical hemorrhage. No new intracranial abnormality. 09/22/2015 - - Read by: Lasha Chow MD Dictated Date/time: 09/22/15 11:51 Electronically Signed by: Lasha Chow MD 09/22/15 11:56 FINAL REPORT [facility] CARDIAC ENZYMES Troponin-I 0.04 ng/mL 0.00 - 0.40 09/21/2015 [facility] CHEM PANEL A/G Ratio 1.0 0.7 - 1.6 09/21/2015 [facility] CHEM PANEL B/C Ratio 9 6 - 25 09/21/2015 [facility] CHEM PANEL Globulin 3.7 g/dL 2.0 - 4.0 09/21/2015 [facility] CHEM PANEL AGAP 11.1 meq/L 10.0 - 20.0 09/21/2015 [facility] CHEM PANEL eGFR 55 mL/min/1.73m2 09/21/2015 Result Comment: The eGFR is calculated using the CKD-EPI formula. In most young, healthy individuals the eGFR will be >90 mL/min/1.73m2. The eGFR declines with age. An eGFR of 60-89 may be normal in some populations, particularly the elderly, for whom the CKD-EPI formula has not been extensively validated. Use of the eGFR is not recommended in the following populations: Individuals with unstable creatinine concentrations, including patients and those with serious co-morbid conditions. Patients with extremes in muscle mass or diet. The data above are obtained from the National Kidney Disease Education Program (NKDEP) which additionally recommends that when the eGFR is used in patients with extremes of body mass index for purposes of drug dosing, the eGFR should be multiplied by the estimated BMI. [facility] CHEM PANEL Alk Phos 74 unit/L 39 - 136 09/21/2015 [facility] CHEM PANEL Bili Total 0.4 mg/dL 0.2 - 1.3 09/21/2015 [facility] CHEM PANEL Chloride Lvl 98 meq/L 95 - 109 09/21/2015 [facility] CHEM PANEL Potassium Lvl 3.1 meq/L 3.5 - 5.1 09/21/2015 [facility] CHEM PANEL Sodium Lvl 139 meq/L 135 - 145 09/21/2015 [facility] CHEM PANEL BUN 12 mg/dL 7 - 22 09/21/2015 [facility] CHEM PANEL Glucose Lvl 105 mg/dL 70 - 99 09/21/2015 [facility] CHEM PANEL Creatinine Lvl 1.29 mg/dL 0.50 - 1.40 09/21/2015 [facility] CHEM PANEL Calcium Lvl 9.2 mg/dL 8.5 - 10.5 09/21/2015 [facility] CHEM PANEL AST 20 unit/L 0 - 37 09/21/2015 [facility] CHEM PANEL ALT 24 unit/L 0 - 65 09/21/2015 [facility] CHEM PANEL Albumin Lvl 3.8 g/dL 3.5 - 5.0 09/21/2015 [facility] CHEM PANEL CO2 33 meq/L 24 - 32 09/21/2015 [facility] CHEM PANEL Total Protein 7.5 g/dL 6.4 - 8.4 09/21/2015 [facility] HEMATOLOGY INR 1.00 0.85 - 1.17 09/21/2015 [facility] PTT 30.0 s 22.9 - 35.8 09/21/2015 [facility] HEMATOLOGY PT 13.5 s 12.0 - 14.7 09/21/2015 [facility] Platelet 255 K/CMM 133 - 450 09/21/2015 [facility] MPV 8.4 fL 7.4 - 10.4 09/21/2015 [facility] MCHC 32.3 g/dL 32.0 - 36.0 09/21/2015 [facility] RDW 14.5 % 11.5 - 14.5 09/21/2015 [facility] MCH 28.7 pg 27.0 - 31.0 09/21/2015 [facility] MCV 88.9 fL 80.0 - 94.0 09/21/2015 [facility] Hgb 13.3 g/dL 14.0 - 18.0 09/21/2015 [facility] Hct 41.2 % 42.0 - 54.0 09/21/2015 [facility] WBC 9.0 K/CMM 3.7 - 10.4 09/21/2015 [facility] RBC 4.64 M/CMM 4.70 - 6.10 09/21/2015 [facility] Monocytes # 0.7 K/CMM 0.0 - 0.8 09/21/2015 [facility] Eosinophils # 0.1 K/CMM 0.0 - 0.5 09/21/2015 [facility] Monocytes 8.1 % 2.0 - 12.0 09/21/2015 [facility] Eosinophils 1.3 % 0.0 - 4.0 09/21/2015 [facility] Segs-Bands # 6.2 K/CMM 1.5 - 8.1 09/21/2015 [facility] Basophils 0.2 % 0.0 - 1.0 09/21/2015 [facility] Lymphocytes # 1.9 K/CMM 1.0 - 5.5 09/21/2015 [facility] Lymphocytes 20.8 % 20.0 - 40.0 09/21/2015 [facility] HEMATOLOGY Segs 69.6 % 45.0 - 75.0 09/21/2015 [facility] Brain wo contrast CT Brain wo contrast CT Brain wo contrast CT 09/21/2015 4:20 PM CDT Ordering Physician: Zac Adrian CLINICAL HISTORY: Head trauma; fall injury; history of strokes COMPARISON: CT head May 2007 TECHNIQUE: Axial images were obtained from the foramen magnum to the vertex without the use of intravenous contrast on a multidetector CT. Coronal and sagittal reformations were created. FINDINGS: INTRACRANIAL VAULT: Right frontal subcortical white matter small 9 x 4 mm intraparenchymal hemorrhagic contusion is present. No secondary signs of increased intracranial pressure are present. No large territorial ischemic infarction is present. Bilateral patchy subcortical and deep white matter hypoattenuating foci with mild diffuse volume loss are present. Ventricles, cisterns, and sulci are normal. No intracranial mass or midline shift is present. Intracranial atherosclerotic calcific disease is present. ORBITS, MASTOIDS AND PARANASAL SINUSES: Visualized orbits are normal. Sinuses and air cells are clear. CALVARIUM: Calvarium is intact. IMPRESSION: 1. Right frontal lobe subcortical white matter intraparenchymal hemorrhagic contusion, 9 x 4 mm. This critical finding was conveyed to Zac Adrian from the Emergency Room today at 1715. 2. 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 SL: [id number] 09/21/2015 - - Read by: Eitan Ibarra MD Dictated Date/time: 09/21/15 17:20 Electronically Signed by: Eitan Ibarra MD 09/21/15 17:23 FINAL REPORT [facility] Ribs unilateral 3 views w PA chest DX Ribs unilateral 3 views w PA chest DX Patient Name: FUAD ERAZO : 1940; Age: 75 years y/o Male MR: [id number] Study: Ribs unilateral 3 views w PA chest DX 09/21/2015 2:00 PM CDT Ordering Physician: Ash Whitmore Clinical Indication: Pain Post Trauma; Comparison: 06/23/2007 chest radiograph Discussion: There is a minimally displaced fracture of the anterolateral arc of the right 7th rib. No associated callus. No other fractures or intrinsic lesions of the ribs. The accompanying chest demonstrates no pneumothorax. Stable position of the transvenous pacemaker. Interval placement of a vascular stent in the medial aspect of the right upper lung field. Previous lower anterior cervical fusion. Surgical clips in both lower cervical regions. Degenerative changes in the spine and shoulders. Thoracolumbar scoliosis. Reticular opacities in both lung bases. No confluent airspace opacities or large collections of pleural fluid. The cardiac silhouette and pulmonary vasculature are normal. Tortuous and partially calcified aorta. IMPRESSION: 1. Right rib fracture. 2. Bibasilar parenchymal changes consistent with subsegmental atelectasis and/or fibrotic scarring. SL: [id number] 09/21/2015 - - Read by: Todd Rodríguez MD Dictated Date/time: 09/21/15 16:43 Electronically Signed by: Todd Rodríguez MD 09/21/15 16:47 FINAL REPORT [facility] ELECTROLYTES AGAP 10.3 meq/L 10.0 - 20.0 04/10/2014 [facility] ELECTROLYTES Sodium Lvl 136 meq/L 135 - 145 04/10/2014 [facility] ELECTROLYTES Potassium Lvl 4.3 meq/L 3.5 - 5.1 04/10/2014 [facility] ELECTROLYTES CO2 31 meq/L 24 - 32 04/10/2014 [facility] ELECTROLYTES Chloride Lvl 99 meq/L 95 - 109 04/10/2014 [facility] HEMATOLOGY Hgb 13.3 g/dL 14.0 - 18.0 04/10/2014 [facility] HEMATOLOGY Hct 41.2 % 42.0 - 54.0 04/10/2014 [facility] Vital Signs Vital Sign Value Date Comments Source BMI Calculated 21.94 08/05/2018 [facility] Weight 65.455 08/05/2018 [facility] Height 172.72 cm 08/05/2018 [facility] Temperature Oral (F) 97.2 F 08/05/2018 [facility] Heart Rate 83 08/05/2018 [facility] Respitory Rate 16 08/05/2018 [facility] Systolic (mm Hg) 159 08/05/2018 [facility] Diastolic (mm Hg) 92 08/05/2018 [facility] BMI Calculated 23.49 02/10/2018 [facility] Weight 70.085 02/10/2018 [facility] Height 172.72 cm 02/10/2018 [facility] Temperature Oral (F) 96.2 F 02/10/2018 [facility] Respitory Rate 16 02/10/2018 [facility] Heart Rate 59 02/10/2018 [facility] Systolic (mm Hg) 139 02/10/2018 [facility] Diastolic (mm Hg) 79 02/10/2018 [facility] BMI Calculated 23.46 01/14/2018 [facility] Height 172.72 cm 01/14/2018 [facility] Weight 70 01/14/2018 [facility] Temperature Oral (F) 97.0 F 01/14/2018 [facility] Heart Rate 67 01/14/2018 [facility] Respitory Rate 14 01/14/2018 [facility] Systolic (mm Hg) 110 01/14/2018 [facility] Diastolic (mm Hg) 74 01/14/2018 [facility] Height 172.72 cm 10/06/2017 [facility] Temperature Oral (F) 97.3 F 10/06/2017 [facility] Weight 71.136 10/06/2017 [facility] BMI Calculated 23.85 10/06/2017 [facility] Respitory Rate 16 10/06/2017 [facility] Heart Rate 80 10/06/2017 [facility] Systolic (mm Hg) 118 10/06/2017 [facility] Diastolic (mm Hg) 74 10/06/2017 [facility] BMI Calculated 23.92 09/18/2017 [facility] Weight 71.364 09/18/2017 [facility] Height 172.72 cm 09/18/2017 [facility] Heart Rate 63 09/18/2017 [facility] Systolic (mm Hg) 120 09/18/2017 [facility] Diastolic (mm Hg) 65 09/18/2017 [facility] Respitory Rate 14 09/18/2017 [facility] Temperature Oral (F) 97.0 F 09/18/2017 [facility] Temperature Oral (F) 98.5 F 06/02/2017 [facility] Heart Rate 67 06/02/2017 [facility] Respitory Rate 18 06/02/2017 [facility] Systolic (mm Hg) 138 06/02/2017 [facility] Diastolic (mm Hg) 70 06/02/2017 [facility] Heart Rate 65 06/02/2017 [facility] Systolic (mm Hg) 118 06/02/2017 [facility] Diastolic (mm Hg) 68 06/02/2017 [facility] Respitory Rate 16 06/02/2017 [facility] Temperature Oral (F) 97.8 F 06/02/2017 [facility] Systolic (mm Hg) 168 06/02/2017 [facility] Diastolic (mm Hg) 89 06/02/2017 [facility] Respitory Rate 15 06/02/2017 [facility] Heart Rate 64 06/02/2017 [facility] Temperature Oral (F) 97.8 F 06/02/2017 [facility] Weight 73.545 06/01/2017 [facility] Height 170.18 cm 06/01/2017 [facility] Weight 68.182 06/01/2017 [facility] BMI Calculated 23.54 06/01/2017 [facility] Weight 79.545 06/01/2017 [facility] Height 167.64 cm 06/01/2017 [facility] BMI Calculated 28.3 06/01/2017 [facility] Systolic (mm Hg) 134 12/04/2016 [facility] Diastolic (mm Hg) 76 12/04/2016 [facility] Respitory Rate 18 12/04/2016 [facility] Temperature Oral (F) 98 F 12/04/2016 [facility] Heart Rate 59 12/04/2016 [facility] Temperature Oral (F) 97.6 F 12/04/2016 [facility] Heart Rate 70 12/04/2016 [facility] Systolic (mm Hg) 98 12/04/2016 [facility] Diastolic (mm Hg) 62 12/04/2016 [facility] Respitory Rate 18 12/04/2016 [facility] Respitory Rate 18 12/04/2016 [facility] Systolic (mm Hg) 112 12/04/2016 [facility] Diastolic (mm Hg) 66 12/04/2016 [facility] Temperature Oral (F) 97.9 F 12/04/2016 [facility] Heart Rate 57 12/04/2016 [facility] Weight 66.051 11/11/2016 [facility] Weight 65.909 11/05/2016 [facility] Height 172.72 cm 11/05/2016 [facility] BMI Calculated 22.09 11/05/2016 [facility] BMI Calculated 22.2 11/04/2016 [facility] Height 175.26 cm 11/04/2016 [facility] Weight 68.182 11/04/2016 [facility] Respitory Rate 17 10/09/2016 [facility] Temperature Oral (F) 99.4 F 10/09/2016 [facility] Heart Rate 87 10/09/2016 [facility] Systolic (mm Hg) 152 10/09/2016 [facility] Diastolic (mm Hg) 76 10/09/2016 [facility] Temperature Oral (F) 98.4 F 10/08/2016 [facility] Heart Rate 88 10/08/2016 [facility] Respitory Rate 18 10/08/2016 [facility] Systolic (mm Hg) 154 10/08/2016 [facility] Diastolic (mm Hg) 89 10/08/2016 [facility] Systolic (mm Hg) 116 10/08/2016 [facility] Diastolic (mm Hg) 72 10/08/2016 [facility] Heart Rate 72 10/08/2016 [facility] Respitory Rate 18 10/08/2016 [facility] Temperature Oral (F) 98 F 10/08/2016 [facility] Height 172.72 cm 10/08/2016 [facility] Weight 81.818 10/08/2016 [facility] BMI Calculated 27.43 10/08/2016 [facility] Weight 81.818 10/07/2016 [facility] BMI Calculated 27.43 10/07/2016 [facility] Height 172.72 cm 10/07/2016 [facility] Systolic (mm Hg) 149 09/16/2016 [facility] Diastolic (mm Hg) 70 09/16/2016 [facility] Respitory Rate 16 09/16/2016 [facility] Heart Rate 65 09/16/2016 [facility] Temperature Oral (F) 98.6 F 09/16/2016 [facility] Temperature Oral (F) 98.2 F 09/16/2016 [facility] Heart Rate 64 09/16/2016 [facility] Systolic (mm Hg) 163 09/16/2016 [facility] Diastolic (mm Hg) 79 09/16/2016 [facility] Respitory Rate 16 09/16/2016 [facility] Heart Rate 71 09/16/2016 [facility] Temperature Oral (F) 98.4 F 09/16/2016 [facility] Systolic (mm Hg) 126 09/16/2016 [facility] Diastolic (mm Hg) 68 09/16/2016 [facility] Respitory Rate 16 09/16/2016 [facility] Weight 81.818 09/15/2016 [facility] BMI Calculated 27.43 09/15/2016 [facility] Weight 81.818 09/15/2016 [facility] Height 172.72 cm 09/15/2016 [facility] Respitory Rate 20 09/23/2015 [facility] Respitory Rate 20 09/23/2015 [facility] Respitory Rate 26 09/23/2015 [facility] Systolic (mm Hg) 144 09/23/2015 [facility] Diastolic (mm Hg) 74 09/23/2015 [facility] Systolic (mm Hg) 144 09/23/2015 [facility] Diastolic (mm Hg) 74 09/23/2015 [facility] Systolic (mm Hg) 133 09/23/2015 [facility] Diastolic (mm Hg) 56 09/23/2015 [facility] Temperature Oral (F) 97.6 F 09/23/2015 [facility] Temperature Oral (F) 97.6 F 09/23/2015 [facility] Height 172.72 cm 09/23/2015 [facility] BMI Calculated 26.48 09/23/2015 [facility] Weight 79 09/23/2015 [facility] Temperature Oral (F) 97.0 F 09/22/2015 [facility] Heart Rate 63 09/22/2015 [facility] Heart Rate 69 09/22/2015 [facility] Heart Rate 73 09/22/2015 [facility] Weight 79.545 09/22/2015 [facility] Temperature Oral (F) 98.2 F 09/22/2015 [facility] Heart Rate 62 09/22/2015 [facility] Respitory Rate 20 09/22/2015 [facility] Systolic (mm Hg) 156 09/22/2015 [facility] Diastolic (mm Hg) 79 09/22/2015 [facility] Respitory Rate 18 09/21/2015 [facility] Temperature Oral (F) 98.4 F 09/21/2015 [facility] Heart Rate 59 09/21/2015 [facility] Systolic (mm Hg) 163 09/21/2015 [facility] Diastolic (mm Hg) 89 09/21/2015 [facility] Systolic (mm Hg) 195 09/21/2015 [facility] Diastolic (mm Hg) 95 09/21/2015 [facility] Heart Rate 75 09/21/2015 [facility] Temperature Oral (F) 98.2 F 09/21/2015 [facility] Height 172.72 cm 09/21/2015 [facility] BMI Calculated 27.43 09/21/2015 [facility] Weight 81.818 09/21/2015 [facility] Respitory Rate 20 09/21/2015 [facility] Respitory Rate 18 04/14/2014 [facility] Systolic (mm Hg) 115 04/14/2014 [facility] Diastolic (mm Hg) 62 04/14/2014 [facility] Respitory Rate 18 04/14/2014 [facility] Systolic (mm Hg) 99 04/14/2014 [facility] Diastolic (mm Hg) 58 04/14/2014 [facility] Systolic (mm Hg) 98 04/14/2014 [facility] Diastolic (mm Hg) 55 04/14/2014 [facility] Respitory Rate 18 04/14/2014 [facility] Heart Rate 80 04/10/2014 [facility] Temperature Oral (F) 97.9 F 04/10/2014 [facility] Weight 75.909 04/10/2014 [facility] Height 172.72 cm 04/10/2014 [facility] BMI Calculated 25.45 04/10/2014 [facility] Encounters Location Location Details Encounter Type Encounter Number Reason For Visit Attending Provider ADM Date DC Date Status Source [facility] Bedded Outpatient [id number] Phong Almontedhyay 04/14/2014 04/14/2014 [facility] Outpatient [id number] DIMITRI VALDERRAMA 02/16/2015 [facility] [id number] [facility] 05/23/2015 Active [facility] Outpatient [id number] NURSE VISIT 06/07/2015 Active [facility] Outpatient [id number] DIMITRI VALDERRAMA 08/03/2015 Active [facility] [id number] Humberto Drivermercedes 09/21/2015 09/22/2015 [facility] OBS Observation Patient [id number] Tom Mace 09/22/2015 09/23/2015 [facility] Outpatient [id number] [facility] 10/04/2015 Active [facility] Outpatient [id number] Ish Manzo 10/18/2015 10/19/2015 [facility] Outpatient [id number] ISH MANZO 10/18/2015 Active [facility] Outpatient [id number] ISH MANZO 10/18/2015 Active [facility] [id number] [facility] 10/18/2015 [facility] Outpatient [id number] DIMITRI VALDERRAMA 11/23/2015 [facility] [id number] DIMITRI VALDERRAMA 12/10/2015 Active [facility] Outpatient [id number] DIMITRI VALDERRAMA 03/17/2016 [facility] [id number] [facility] 03/26/2016 Active [facility] Outpatient [id number] DIMITRI VALDERRAMA 04/24/2016 [facility] [id number] DIMITRI VALDERRAMA 05/21/2016 Active [facility] Outpatient [id number] DIMITRI VALDERRAMA 06/04/2016 [facility] [id number] DIMITRI VALDERRAMA 06/04/2016 Active [facility] Outpatient [id number] DIMITRI VALDERRAMA 09/02/2016 Active [facility] Observation [id number] Tor Echols 09/15/2016 09/16/2016 [facility] Observation [id number] Tor Echols 10/07/2016 10/09/[address] [facility] Outpatient [id number] DIMITRIElla HUFFMANO 10/16/2016 Active [facility] Inpatient [id number] Tor Echols 11/04/2016 12/04/[address] [facility] Outpatient [id number] DIMITRI VALDERRAMA 04/06/2017 Active [facility] Outpatient [id number] DIMITRI VALDERRAMA 04/28/2017 Active [facility] Observation [id number] Tor Echols 06/01/2017 06/02/2017 [facility] Primary Care [facility] Phone Message [id number] 06/11/2017 06/13/2017 [facility] Outpatient [id number] DIMITRI VALDERRAMA 07/29/2017 Active [facility] Primary [facility] Ambulatory Pre-Reg [id number] Dimitri Lewiscedo 07/29/2017 07/29/2017 [facility] Outpatient [id number] DEANNA MILIAN 09/18/2017 Active [facility] Outpatient [id number] Deanna Milian 09/18/2017 09/19/2017 [facility] Phone Message [id number] 09/30/2017 10/02/2017 [facility] Outpatient [id number] DIMITRI VALDERRAMA 10/06/2017 Active [facility] Outpatient [id number] Dimitri Huffmano 10/06/2017 10/07/2017 [facility] Phone Message [id number] 10/20/2017 10/22/2017 [facility] Phone Message [id number] 10/30/2017 11/01/2017 [facility] Phone Message [id number] 11/10/2017 11/12/2017 [facility] Phone Message [id number] 11/17/2017 11/19/2017 [facility] Phone Message [id number] 12/10/2017 12/12/2017 [facility] Phone Message [id number] 01/09/2018 01/11/2018 [facility] Primary [facility] Phone Message [id number] 01/11/2018 01/13/2018 [facility] Outpatient [id number] DIMITRI VALDERRAMA 01/14/2018 Active [facility] Primary Care [facility] Outpatient [id number] Dimitri Valderrama 01/14/2018 01/15/2018 [facility] Primary [facility] Phone Message [id number] 01/17/2018 01/18/2018 [facility] Outpatient [id number] DIMITRI VALDERRAMA 02/10/2018 Active [facility] Outpatient [id number] Dimitri Valderrama 02/10/2018 02/11/2018 [facility] Outpatient [id number] DEANNA MILIAN 03/05/2018 Active [facility] Outpatient [id number] DIMITRI VALDERRAMA 03/19/2018 Active [facility] Outpatient [id number] DIMITRI VALDERRAMA 05/05/2018 Active [facility] Outpatient [id number] DIMITRI VALDERRAMA 08/05/2018 Active [facility] Outpatient [id number] Dimitri Valderrama 08/05/2018 08/06/2018 [facility] Primary [facility] Phone Message [id number] 08/10/2018 08/12/2018 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 POSTOPERATIVE DIAGNOSIS: Recurrent right carotid artery stenosis. OPERATION: Redo right carotid endarterectomy with bovine pericardial patch angioplasty, completion of the ultrasound exam. [facility] Angioplasty of carotid artery<sup>3</sup> [id number] 11/17/2016 PREOPERATIVE DIAGNOSIS: Recurrent right carotid artery stenosis. POSTOPERATIVE DIAGNOSIS: Recurrent right carotid artery stenosis. OPERATION: Redo right carotid endarterectomy with bovine pericardial patch angioplasty, completion of the ultrasound exam. [facility] Myelography via lumbar injection, including radiological supervision and interpretation; 2 or more regions (eg, lumbar/thoracic, cervical/thoracic, lumbar/cervical, lumbar/thoracic/cervical) [id number] 10/18/2015 [facility] Pneumococcal vaccination<sup>3</sup> [id number] 11/11/2013 Pneumovax [facility] Pneumococcal vaccination<sup>4</sup> 94887255 11/11/2013 Pneumovax [facility] Bilateral replacement of knee joints 042941645 [facility] Carotid endarterectomy<sup>1</sup> 96620643 Right carotid artery [facility] Implantation of cardiac pacemaker [id number] [facility] Insertion of chest tube<sup>2</sup> [id number] due to pleural effusion [facility] PTCA - Percutaneous transluminal coronary angioplasty [id number] [facility] Surgical procedure on cervical spine [id number] [facility] Cardiac pacemaker procedure 996616531 [facility] Joint replacement [id number] [facility] Lumbar discectomy [id number] [facility] Operation [id number] [facility] Stent placement<sup>1</sup> [id number] 1x2 [facility] Bilateral replacement of knee joints [id number] [facility] Carotid endarterectomy<sup>1</sup> 46593010 Right carotid artery [facility] Implantation of cardiac pacemaker [id number] [facility] Insertion of chest tube<sup>2</sup> 599373487 due to pleural effusion [facility] PTCA - Percutaneous transluminal coronary angioplasty [id number] [facility] Surgical procedure on cervical spine [id number] [facility] Bilateral replacement of knee joints [id number] [facility] Carotid endarterectomy<sup>1</sup> 21283968 Right carotid artery [facility] Implantation of cardiac pacemaker [id number] [facility] Insertion of chest tube<sup>2</sup> 724896717 due to pleural effusion [facility] PTCA - Percutaneous transluminal coronary angioplasty [id number] [facility] Surgical procedure on cervical spine [id number] [facility] Insertion of chest tube<sup>4</sup> [id number] due to pleural effusion [facility] Insertion of chest tube<sup>5</sup> 095138720 due to pleural effusion [facility]
--- OUTSIDE RECORDS SUMMARY | 2018-09-22 05:58 | XMS REPORT | Summary of Care ---
Author Author [facility] Organization [facility] Address Unknown Phone Unavailable Encounter HQ Eileen(KAILA) [id number] Date(s): 11/04/16 - 12/04/16 [facility] [id number] [place] [address]- Discharge Disposition: Custodial Facility Attending Physician: Tor Echols MD Admitting Physician: Tor Echols MD Vital Signs 1 2 3 Most recent to oldest [Reference Range]: 172.72 cm (11/04/16 11:50 PM) 175.26 cm (11/04/16 6:55 PM) Height 98 DegF (12/04/16 11:34 AM) 97.6 DegF (12/04/16 8:02 AM) 97.9 DegF (12/04/16 4:00 AM) Temperature Oral [96.4-99.1 DegF] 134/76 mmHg (12/04/16 11:34 AM) 98/62 mmHg (12/04/16 8:02 AM) 112/66 mmHg (12/04/16 4:00 AM) Blood Pressure [90-140/60-90 mmHg] 18 BRMIN (12/04/16 11:34 AM) 18 BRMIN (12/04/16 8:02 AM) 18 BRMIN (12/04/16 4:00 AM) Respiratory Rate [14-20 BRMIN] 59 bpm *LOW* (12/04/16 11:34 AM) 70 bpm (12/04/16 8:02 AM) 57 bpm *LOW* (12/04/16 4:00 AM) Peripheral Pulse Rate [60-100 bpm] 66.051 kg (11/11/16 5:00 AM) 65.909 kg (11/04/16 11:50 PM) 68.182 kg (11/04/16 6:55 PM) Weight 22.09 m2 (11/04/16 11:50 PM) 22.2 m2 (11/04/16 6:55 PM) Body Mass Index Problem List Condition Effective Dates Status Health Status Informant Acute Active bronchitis(Confirmed ) COPD Resolved exacerbation(Confirm ed) Anxiety 03/02/13 Active disorder(Confirmed)1 Benign essential Active hypertension(Confirm ed) 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 CAD (coronary artery Active disease)(Confirmed) Candidal Active intertrigo(Confirmed ) Pacemaker(Confirmed) Resolved Cardiac pacemaker3 04/24/14 Active Chronic back pain4 06/29/59 Active Chronic obstructive 04/24/14 Active lung disease5 Depression, Active major(Confirmed) Diarrhea(Confirmed) Active Dizziness6 05/09/14 Active Gastritis(Confirmed) Active Penile Active bleeding(Confirmed) Asthma(Confirmed) Resolved Medicare annual Resolved wellness visit, subsequent(Confirmed ) Mixed Active hyperlipidemia(Confi rmed)7 Orthostatic 11/03/14 Active hypotension8, 9 [id number] 03/02/13 Active Prediabetes(Confirme Active d) S/P PTCA Active (percutaneous transluminal coronary angioplasty)(Confirm ed) Screening for Resolved prostate cancer(Confirmed) Sick sinus Active Subcortical Active hemorrhage(Confirmed ) 1Data migrated from [employer] on 11/25/14. 2Data migrated from [employer] on 11/25/14. 3Data migrated from [employer] on 11/25/14. 4Data migrated from [employer] on 11/25/14. 5Data migrated from [employer] on 11/25/14. 6Data migrated from [employer] on 11/25/14. 7Data migrated from [employer] on 11/25/14. 8Data migrated from [employer] on 01/03/15. 9Data migrated from [employer] on 11/28/14. 10Data migrated from [employer] on 11/25/14. 11Data migrated from [employer] on 11/25/14. Allergies, Adverse Reactions, Alerts Substance Reaction Severity Status NKDA Active Medications acetaminophen 650 mg, 2 tab, Route: PO, Drug form: TAB, Q4H, Dosing Weight 65.909, kg, PRN Isaac n 1-3/Temp > 100.4 F, Start date: 11/05/16 1:10:00 CDT, Duration: 30 day, Stop date: 01/04/17 1:09:00 CDT Notes: Do not exceed 4 gm/day. (Same as: Tylenol) Start Date: 11/05/16 Stop Date: 12/04/16 Status: Discontinued acetaminophen (ANES) (ANES) Route: IV, Drug form: INJ, Start date: 11/17/16 13:27:00 CDT, Stop date: 7 14:27:00 CDT Start Date: 11/17/16 Stop Date: 11/17/16 Status: Completed acetaminophen-hydrocodone 325 mg-10 mg oral tablet 2 tab, Route: PO, Drug Form: TAB, Dosing Weight 66.051, kg, Q4H, PRN Pain Score 7-10, Start date: 11/17/16 13:56:00 CDT, Duration: 30 day, Stop date: 12/17/16 1 3:55:00 CDT Notes: Do not exceed 4gm/day of acetaminophen. (Same as: Monterey 325/10) Start Date: 11/17/16 Stop Date: 12/04/16 Status: Discontinued acetaminophen-hydrocodone 325 mg-5 mg oral tablet 1 tab, Route: PO, Drug Form: TAB, Dosing Weight 66.051, kg, Q4H, PRN Pain Score 4-6, Start date: 11/17/16 13:56:00 CDT, Duration: 30 day, Stop date: 12/17/16 13 :55:00 CDT Notes: (Same as: [place] 325/5) Do not exceed 4gm/day of acetaminophen. Start Date: 11/17/16 Stop Date: 12/04/16 Status: Discontinued Amidate (ANES) Route: IV, Drug form: INJ, ONCE, Stop date: 11/17/16 12:50:00 CDT Start Date: 11/17/16 Stop Date: 11/17/16 Status: Completed amLODIPine 10 mg, Route: PO, Drug form: TAB, Daily, Dosing Weight 66.051, kg, Priority: NOW , Start date: 11/24/16 12:39:00 CDT, Duration: 30 day, Stop date: 12/24/16 9:00: 00 CDT Start Date: 11/24/16 Stop Date: 11/24/16 Status: Discontinued amLODIPine 2.5 mg, 1 tab, Route: PO, Drug form: TAB, Daily, Dosing Weight 66.051, kg, Start date: 11/25/16 9:00:00 CDT, Duration: 30 day, Stop date: 12/24/16 9:00:00 CDT Notes: (Same as: Anabel) Start Date: 11/25/16 Stop Date: 11/25/16 Status: Canceled amLODIPine 5 mg, 1 tab, Route: PO, Drug form: TAB, Daily, Dosing Weight 66.051, kg, Start d ate: 11/25/16 9:00:00 CDT, Stop date: 12/24/16 9:00:00 CDT Notes: (Same as: Anabel) Start Date: 11/25/16 Stop Date: 11/28/16 Status: Discontinued amLODIPine 2.5 mg, 1 tab, Route: PO, Drug form: TAB, Daily, Dosing Weight 66.051, kg, Start date: 11/20/16 9:00:00 CDT, Duration: 30 day, Stop date: 12/19/16 9:00:00 CDT Notes: (Same as: Anabel) Start Date: 11/20/16 Stop Date: 11/24/16 Status: Discontinued Ancef 2 gm, 100 mL, Route: IVPB, Drug form: INJ, ONCE, Dosing Weight 66.051, kg, Start date: 11/23/16 9:19:00 CDT, Duration: 1 doses or times, Stop date: 11/23/16 9:1 9:00 CDT, [employer] Surgical Prophylaxis Only; For patients < 100 kg, ABX Indication: Intra-ab... Notes: Same as: Ancef Start Date: 11/23/16 Stop Date: 11/23/16 Status: Completed aspirin 300 mg rectal suppository 300 mg, 1 supp, Route: [place], Drug form: SUPP, Daily, Dosing Weight 66.051, kg, Laura ority: NOW, Start date: 11/21/16 12:18:00 CDT, Duration: 30 day, Stop date: 11/28 11/12 9:00:00 CDT Notes: Refrigerate. Start Date: 11/21/16 Stop Date: 11/21/16 Status: Deleted aspirin 300 mg rectal suppository 300 mg, 1 supp, Route: W[place], Drug form: SUPP, Daily, Dosing Weight 66.051, kg, Laura ority: NOW, Start date: 11/21/16 16:48:00 CDT, Duration: 30 day, Stop date: 11/28 11/12 9:00:00 CDT Notes: Refrigerate. Start Date: 11/21/16 Stop Date: 11/24/16 Status: Discontinued aspirin 81 mg tablet, chewable 81 mg, 1 tab, Route: PO, Drug form: CHEWTAB, Daily, Dosing Weight 66.051, kg, St art date: 11/25/16 9:00:00 CDT, Duration: 30 day, Stop date: 12/24/16 9:00:00 CD T Notes: Take with food. Start Date: 11/25/16 Stop Date: 11/29/16 Status: Discontinued aspirin 81 mg tablet, enteric coated 81 mg, 1 tab, Route: PO, Drug form: ECTAB, Daily, Dosing Weight 65.909, kg, Star t date: 11/05/16 10:00:00 CDT, Duration: 30 day, Stop date: 12/05/16 9:00:00 CDT Notes: Do not crush or chew.(Same As: Ecotrin) Start Date: 11/05/16 Stop Date: 11/26/16 Status: Discontinued Ativan 1 mg, 0.5 mL, Route: IM, Drug form: INJ, ONCE, Dosing Weight 66.051, kg, Priorit y: STAT, Start date: 11/18/16 23:26:00 CDT, Stop date: 11/18/16 23:26:00 CDT Notes: (Same as: Ativan) Start Date: 11/18/16 Stop Date: 11/18/16 Status: Completed Augmentin 875 mg oral tablet 1 tab, Route: PO, Drug Form: TAB, Dosing Weight 66.051, kg, [id number], Start date: 11/13/16 20:00:00 CDT, Duration: 30 day, Stop date: 12/13/16 8:00:00 CDT Notes: With food.(Same as: Augmentin 875) Start Date: 11/13/16 Stop Date: 11/17/16 Status: Discontinued calcium carbonate 500 mg (200 mg elemental calcium) oral tablet 1,000 mg, 2 tab, Route: PO, Drug form: CHEWTAB, PRN, Dosing Weight 66.051, kg, P RN Abnormal Lab Result, FOR ICU USE ONLY, Start date: 11/25/16 9:00:00 CDT, Dura tion: 30 day, Stop date: 12/25/16 8:59:00 CDT Notes: (Same As: Tums)Calcium Carbonate 500 yr=875 mg elemental calcium Dose=_ mg calcium carbonate ( mg elemental calcium) Start Date: 11/25/16 Stop Date: 12/04/16 Status: Discontinued calcium carbonate 500 mg (200 mg elemental calcium) oral tablet 500 mg, 1 tab, Route: PO, Drug form: CHEWTAB, PRN, Dosing Weight 66.051, kg, PRN Abnormal Lab Result, FOR ICU USE ONLY, Start date: 11/25/16 9:00:00 CDT, Durati on: 30 day, Stop date: 12/25/16 8:59:00 CDT Notes: (Same As: Tums)Calcium Carbonate 500 ch=793 mg elemental calcium Dose=_ mg calcium carbonate ( mg elemental calcium) Start Date: 11/25/16 Stop Date: 12/04/16 Status: Discontinued calcium gluconate + sodium chloride 0.9% INJ 40 mL 1 gm, 10 mL, Route: IVPB, PRN, Dosing Weight 66.051, kg, PRN Abnormal Lab Result , Start date: 11/25/16 9:00:00 CDT, Duration: 30 day, Stop date: 12/25/16 8:59:0 0 CDT, FOR ICU USE ONLY Notes: WASTE: F/P - Sink; E - Municipal Trash Bin Start Date: 11/25/16 Stop Date: 12/04/16 Status: Discontinued ceFAZolin (ANES) (ANES) Route: IV, Drug form: INJ, Start date: 11/17/16 11:56:00 CDT, Stop date: 7 12:56:00 CDT Start Date: 11/17/16 Stop Date: 11/17/16 Status: Completed cloNIDine 0.1 mg oral tablet 0.1 mg, 1 tab, Route: PO, Drug form: TAB, Q4H, Dosing Weight 65.909, kg, PRN Elaine vated BP, Start date: 11/09/16 11:39:00 CDT, Duration: 30 day, Stop date: 11:38:00 CDT, systolic BP > 170 Notes: (Same As: Aileenaprizabella) Start Date: 11/09/16 Stop Date: 12/04/16 Status: Discontinued cloNIDine 0.1 mg oral tablet 0.1 mg, 1 tab, Route: PO, Drug form: TAB, Q4H, Dosing Weight 65.909, kg, PRN Elaine vated BP, Start date: 11/07/16 4:48:00 CDT, Duration: 30 day, Stop date: 7 4:47:00 CDT, SBP> 170 Notes: (Same As: Cataprizabella) Start Date: 11/07/16 Stop Date: 11/07/16 Status: Discontinued clopidogrel 75 mg oral tablet 75 mg=1 tab, PO, Daily, 0 Refill(s) Start Date: 12/04/16 Status: Ordered Combivent Respimat CFC free 100 mcg-20 mcg/inh inhalation aerosol 1 puff, Route: INHALATION, Drug Form: AERO, Dosing Weight 65.909, kg, QID, Start date: 11/05/16 13:00:00 CDT, Duration: 30 day, Stop date: 12/05/16 9:00:00 CDT Notes: Same as: Combivent RespimatWASTE: Aerosol - Return to Pharmacy Start Date: 11/05/16 Stop Date: 11/24/16 Status: Discontinued Cymbalta 60 mg, 2 cap, Route: PO, Drug form: DRC, BID, Dosing Weight 65.909, kg, Start da te: 11/05/16 10:00:00 CDT, Duration: 30 day, Stop date: 01/04/17 9:00:00 CDT Notes: (Same as: Cymbalta) (Do Not Crush) Start Date: 11/05/16 Stop Date: 12/04/16 Status: Discontinued dexamethasone (ANES) Route: IV, Drug form: INJ, ONCE, Stop date: 11/17/16 14:08:00 CDT Start Date: 11/17/16 Stop Date: 11/17/16 Status: Completed esmolol-NS 2,500 mg 2,500 mg, 250 mL, Rate: Titrate, Start Dose: 50 microgram/kg/min, Titration: 50 microgram/kg/min every 15 minutes, Goal(s): Maintain SBP between 100-150 mmHg, M ax Dose: 300 microgram/kg/min, Route: IV, Dosing Weight 66.051 kg, Total Volume: 250, Start... Notes: (Same as: Brevibloc)10 mg/ml conc. Start Date: 11/23/16 Stop Date: 11/26/16 Status: Discontinued famotidine 20 mg, 1 tab, Route: PO, Drug form: TAB, BID, Start date: 11/05/16 10:00:00 CDT, Duration: 30 day, Stop date: 01/04/17 9:00:00 CDT Notes: (Same as: Pepcid) Start Date: 11/05/16 Stop Date: 12/04/16 Status: Discontinued fentaNYL 50 microgram, 1 mL, Route: IVP, Drug form: INJ, ONCE, Dosing Weight 66.051, kg, Start date: 11/17/16 15:13:00 CDT, Stop date: 11/17/16 15:13:00 CDT Notes: (Same as: Sublimaze) Preservative free. Start Date: 11/17/16 Stop Date: 11/17/16 Status: Completed fentaNYL 50 microgram, 1 mL, Route: IVP, Drug form: INJ, ONCE, Dosing Weight 66.051, kg, Start date: 11/17/16 15:13:00 CDT, Stop date: 11/17/16 15:13:00 CDT Notes: (Same as: Sublimaze) Preservative free. Start Date: 11/17/16 Stop Date: 11/17/16 Status: Completed fentaNYL (ANES) Route: IV, Drug form: INJ, ONCE, Stop date: 11/17/16 12:50:00 CDT Start Date: 11/17/16 Stop Date: 11/17/16 Status: Completed furosemide 20 mg oral tablet 20 mg, 1 tab, Route: PO, Drug form: TAB, Daily, Dosing Weight 65.909, kg, Start date: 11/05/16 10:00:00 CDT, Duration: 30 day, Stop date: 01/04/17 9:00:00 CDT Notes: (Same as: Lasix) May cause GI upset. Give with food or milk. Start Date: 11/05/16 Stop Date: 12/04/16 Status: Discontinued gabapentin 300 mg oral capsule 300 mg, 1 cap, Route: PO, Drug form: CAP, Q12H, Dosing Weight 66.051, kg, (CrCl 30 - 59 ml/min), Start date: 11/12/16 21:00:00 CDT, Duration: 30 day, Stop date: 12/12/16 9:00:00 CDT Notes: (Same as: Neurontin) Start Date: 11/12/16 Stop Date: 11/25/16 Status: Discontinued glycopyrrolate (ANES) Route: IV, Drug form: INJ, ONCE, Stop date: 11/17/16 14:08:00 CDT Start Date: 11/17/16 Stop Date: 11/17/16 Status: Completed heparin 5,000 unit, 1 mL, Route: SUB-Q, Drug form: INJ, Q12H, Dosing Weight 66.051, kg, Start date: 11/17/16 21:00:00 CDT, Duration: 30 day, Stop date: 12/17/16 9:00:00 CDT Notes: porcine heparin Start Date: 11/17/16 Stop Date: 12/04/16 Status: Discontinued heparin (ANES) Route: IV, Drug form: INJ, ONCE, Stop date: 11/17/16 12:55:00 CDT Start Date: 11/17/16 Stop Date: 11/17/16 Status: Completed hydrALAZINE 10 mg, 0.5 mL, Route: IV, Drug form: INJ, Q6H, Dosing Weight 66.051, kg, Priorit y: NOW, Start date: 11/21/16 12:20:00 CDT, Duration: 30 day, Stop date: 12/21/16 12:00:00 CDT Notes: (Same as: Apresoline)Push over 5 minutes Start Date: 11/21/16 Stop Date: 11/24/16 Status: Discontinued hydrALAZINE 10 mg, 0.5 mL, Route: IV, Drug form: INJ, Q6H, Dosing Weight 65.909, kg, PRN Elaine vated BP, Start date: 11/07/16 13:43:00 CDT, Duration: 30 day, Stop date: 13:42:00 CDT, for SBP greater than 170mmhg Notes: (Same as: Apresoline)Push over 5 minutes Start Date: 11/07/16 Stop Date: 11/24/16 Status: Discontinued hydromorphone 0.75 mg, 0.75 mL, Route: IV, Drug form: INJ, Q3H, Dosing Weight 66.051, kg, PRN Pain Score 7-10, Start date: 11/17/16 13:56:00 CDT, Stop date: 12/17/16 13:55:00 CDT Start Date: 11/17/16 Stop Date: 12/04/16 Status: Discontinued hydromorphone 0.3 mg, 0.3 mL, Route: IVP, Drug form: INJ, Q3H, Dosing Weight 66.051, kg, PRN P ain Score 4-6, Start date: 11/17/16 13:56:00 CDT, Duration: 30 day, Stop date: 0 12/17/16 13:55:00 CDT Start Date: 11/17/16 Stop Date: 12/04/16 Status: Discontinued Kayexalate 30 gm, 120 mL, Route: PEG, Drug form: SUSP, ONCE, Dosing Weight 66.051, kg, Star t date: 11/30/16 7:22:00 CDT, Stop date: 11/30/16 7:22:00 CDT Notes: (sodium polystyrene sulfonate 15 gm/60 ml RUSH) Shake well before use. (Same as: Kayexalate, SPS) Start Date: 11/30/16 Stop Date: 11/30/16 Status: Completed labetalol (ANES) Route: IV, Drug form: INJ, ONCE, Stop date: 11/17/16 14:23:00 CDT Start Date: 11/17/16 Stop Date: 11/17/16 Status: Completed Lasix 20 mg, 2 mL, Route: IVP, Drug form: INJ, ONCE, Dosing Weight 66.051, kg, Start d ate: 11/23/16 15:56:00 CDT, Stop date: 11/23/16 15:56:00 CDT Notes: (Same as: Lasix) Start Date: 11/23/16 Stop Date: 11/23/16 Status: Completed Lasix 40 mg, 4 mL, Route: IVP, Drug form: INJ, ONCE, Dosing Weight 66.051, kg, Start d ate: 11/27/16 19:09:00 CDT, Stop date: 11/27/16 19:09:00 CDT Notes: (Same as: Lasix) MEDICATION WASTE Product Size: 40 mgProduct Was leon: ___ mg Start Date: 11/27/16 Stop Date: 11/28/16 Status: Completed lidocaine (ANES) Route: IV, Drug form: INJ, ONCE, Stop date: 11/17/16 12:50:00 CDT Start Date: 11/17/16 Stop Date: 11/17/16 Status: Completed lidocaine topical patch (5% film) 1 patch, Route: TOP, Daily, Drug form: FILM, Start date: 11/07/16 9:00:00 CDT, D uration: 30 day, Stop date: 01/05/17 9:00:00 CDT Start Date: 11/07/16 Stop Date: 12/04/16 Status: Discontinued lidocaine topical patch (5% film) 1 patch, Route: TOP, Daily, Drug form: FILM, Start date: 11/06/16 9:00:00 CDT, D uration: 30 day, Stop date: 12/05/16 9:00:00 CDT Start Date: 11/06/16 Stop Date: 11/05/16 Status: Deleted Lidoderm 5% topical film (patch) 1 patch, Route: TOP, Daily, Drug form: FILM, Start date: 11/05/16 9:00:00 CDT, D uration: 30 day, Stop date: 12/04/16 9:00:00 CDT, Remove after 12 hours Notes: Apply only once for up to 12 hours in [id number] period (12 hours on and 12 hours off).(Same as: Lidoderm)"Remove old patch before application of new patch" Start Date: 11/05/16 Stop Date: 11/06/16 Status: Discontinued LR 1000 mL INJ (ANES) Route: IV, Total Volume: 1,000, Start date: 11/17/16 11:32:00 CDT, Stop date: 12:32:00 CDT Start Date: 11/17/16 Stop Date: 11/17/16 Status: Completed magnesium oxide 800 mg, 2 tab, Route: PO, Drug form: TAB, PRN, Dosing Weight 66.051, kg, PRN Abn ormal Lab Result, FOR ICU USE ONLY, Start date: 11/25/16 9:00:00 CDT, Duration: 30 day, Stop date: 12/25/16 8:59:00 CDT Notes: (Same as: Mag-Ox 400)Magnesium oxide [id number] elemental magnesiumDose= ____mg magnesium oxide (___mg elemental magnesium) Start Date: 11/25/16 Stop Date: 12/04/16 Status: Discontinued magnesium sulfate 2 gm, 50 mL, Route: IVPB, Drug form: INJ, PRN, Dosing Weight 66.051, kg, PRN Abn ormal Lab Result, Start date: 11/25/16 9:00:00 CDT, Duration: 30 day, Stop date: 12/25/16 8:59:00 CDT, FOR ICU USE ONLY Notes: WASTE: F/P - Sink; E - Municipal Trash Bin Start Date: 11/25/16 Stop Date: 12/04/16 Status: Discontinued metoclopramide (ANES) Route: IV, Drug form: INJ, ONCE, Stop date: 11/17/16 12:50:00 CDT Start Date: 11/17/16 Stop Date: 11/17/16 Status: Completed metoprolol 5 mg/5 ml INJ 5 mg, 5 mL, Route: IV, Drug form: INJ, ONCE, Dosing Weight 66.051, kg, Priority: NOW, Start date: 11/22/16 8:01:00 CDT, Stop date: 11/22/16 8:01:00 CDT Notes: (Same as: Lopressor)Push over 2 minutes Start Date: 11/22/16 Stop Date: 11/22/16 Status: Completed metoprolol 5 mg/5 ml INJ 5 mg, 5 mL, Route: IVP, Drug form: INJ, Q6H, Dosing Weight 66.051, kg, Priority: NOW, Start date: 11/21/16 12:19:00 CDT, Stop date: 12/21/16 12:00:00 CDT Notes: (Same as: Lopressor)Push over 2 minutes Start Date: 11/21/16 Stop Date: 11/24/16 Status: Discontinued metoprolol tartrate 50 mg, 1 tab, Route: PO, Drug form: TAB, Q12H, Dosing Weight 66.051, kg, Priorit y: NOW, Start date: 11/24/16 12:39:00 CDT, Stop date: 12/24/16 9:00:00 CDT Notes: (Same as: Lopressor) Start Date: 11/24/16 Stop Date: 12/04/16 Status: Discontinued metoprolol tartrate 50 mg oral tablet 50 mg=1 tab, PO, Q12H, 0 Refill(s) Start Date: 12/04/16 Status: Ordered MiraLax 17 gm, 1 pkt, Route: PO, Drug form: PWDR, Daily, Dosing Weight 66.051, kg, Start date: 11/29/16 9:00:00 CDT, Duration: 30 day, Stop date: 12/28/16 9:00:00 CDT Notes: Dissolve in 8 oz of water or juice.(Same as: Miralax) Start Date: 11/29/16 Stop Date: 11/29/16 Status: Voided With Results MiraLax 17 gm, 1 pkt, Route: PO, Drug form: PWDR, Daily, Dosing Weight 66.051, kg, PRN C onstipation, Start date: 11/25/16 9:09:00 CDT, Duration: 30 day, Stop date: 11/28 03/15 9:08:00 CDT Notes: Dissolve in 8 oz of water or juice.(Same as: Miralax) Start Date: 11/25/16 Stop Date: 11/27/16 Status: Discontinued MiraLax 17 gm, 1 pkt, Route: PEG, Drug form: PWDR, BID, Dosing Weight 66.051, kg, PRN Co nstipation, Start date: 11/27/16 19:26:00 CDT, Duration: 30 day, Stop date: 07/15 19:25:00 CDT Notes: Dissolve in 8 oz of water or juice.(Same as: Miralax) Start Date: 11/27/16 Stop Date: 12/04/16 Status: Discontinued neostigmine (ANES) Route: IV, Drug form: INJ, ONCE, Stop date: 11/17/16 14:08:00 CDT Start Date: 11/17/16 Stop Date: 11/17/16 Status: Completed [place] 5/325 oral tablet 1 tab, Route: PO, Drug Form: TAB, Dosing Weight 65.909, kg, Q6H, PRN Pain Score 6-10, NOW, Start date: 11/05/16 20:33:00 CDT, Duration: 30 day, Stop date: 12/05 20:32:00 CDT Notes: (Same as: [place] 325/5) Do not exceed 4gm/day of acetaminophen. Start Date: 11/05/16 Stop Date: 11/17/16 Status: Discontinued norepinephrine (ANES) Route: IV, Drug form: INJ, ONCE, Stop date: 11/17/16 12:55:00 CDT Start Date: 11/17/16 Stop Date: 11/17/16 Status: Completed NS (Bolus) IV 500 mL, 500 ml/hr, Infuse Over: 1 hr, Route: IV, ONCE, Priority: STAT, Dosing We ight 68.182 kg, Start date: 11/04/16 20:22:00 CDT, Duration: 1 doses or times, S top date: 11/04/16 20:22:00 CDT Start Date: 11/04/16 Stop Date: 11/04/16 Status: Completed ondansetron 4 mg, 2 mL, Route: IVP, Drug form: INJ, Q6H, Dosing Weight 65.909, kg, PRN Nause a & Vomiting, Start date: 11/05/16 1:10:00 CDT, Duration: 30 day, Stop date: 01/04/17 1:09:00 CDT Notes: (Same as: Carl) MEDICATION WASTE Product Size: 4 mgProduct Was leon: ___ mg Start Date: 11/05/16 Stop Date: 12/04/16 Status: Discontinued ondansetron (ANES) Route: IV, Drug form: INJ, ONCE, Stop date: 11/17/16 14:08:00 CDT Start Date: 11/17/16 Stop Date: 11/17/16 Status: Completed Plavix 75 mg, 1 tab, Route: PO, Drug form: TAB, Daily, Dosing Weight 65.909, kg, Start date: 11/09/16 9:00:00 CDT, Duration: 30 day, Stop date: 01/07/17 9:00:00 CDT Notes: (Same As: Plavix) Start Date: 11/09/16 Stop Date: 12/04/16 Status: Discontinued potassium chloride 40 mEq, 2 tab, Route: PO, Drug form: ERTAB, Q4Hnow, Dosing Weight 66.051, kg, Pr iority: NOW, Start date: 11/15/16 15:32:00 CDT, Duration: 2 doses or times, Stop date: 11/15/16 20:00:00 CDT Start Date: 11/15/16 Stop Date: 11/15/16 Status: Completed potassium chloride 20 mEq, 15 mL, Route: NJ, Drug form: LIQ, PRN, Dosing Weight 66.051, kg, PRN Abn ormal Lab Result, Start date: 11/25/16 9:00:00 CDT, Duration: 30 day, Stop date: 12/25/16 8:59:00 CDT, FOR ICU USE ONLY Notes: (Same as: Potassium Chloride) Start Date: 11/25/16 Stop Date: 12/04/16 Status: Discontinued potassium chloride 20 mEq, 100 mL, Route: IVPB, Drug form: INJ, PRN, Dosing Weight 66.051, kg, PRN Abnormal Lab Result, Via central line, Start date: 11/25/16 9:00:00 CDT, Duratio n: 30 day, Stop date: 12/25/16 8:59:00 CDT, FOR ICU USE ONLY Notes: (Same as: KCL) Infuse no faster than 10 mEq/hr if given peripherally. Start Date: 11/25/16 Stop Date: 12/04/16 Status: Discontinued potassium chloride 20 mEq, 1 tab, Route: PO, Drug form: ERTAB, PRN, Dosing Weight 66.051, kg, PRN A bnormal Lab Result, Start date: 11/25/16 9:00:00 CDT, Duration: 30 day, Stop hazel e: 12/25/16 8:59:00 CDT, FOR ICU USE ONLY Notes: (Same as: K-Dur 20)"Do Not Crush" With food and full glass of water Start Date: 11/25/16 Stop Date: 12/04/16 Status: Discontinued potassium chloride 10 mEq, 100 mL, Route: IVPB, Drug form: INJ, PRN, Dosing Weight 66.051, kg, PRN Abnormal Lab Result, Via peripheral line, Start date: 11/25/16 9:00:00 CDT, Dura tion: 30 day, Stop date: 12/25/16 8:59:00 CDT, FOR ICU USE ONLY Notes: Infuse at a rate of 10 mEq/hr.(Same as: KCL) Start Date: 11/25/16 Stop Date: 12/04/16 Status: Discontinued potassium chloride 10 mEq, 100 mL, Route: IVPB, Drug form: INJ, Q1H, Start date: 11/21/16 22:00:00 CDT, Duration: 3 doses or times, Stop date: 11/22/16 0:00:00 CDT Notes: Infuse at a rate of 10 mEq/hr.(Same as: KCL) Start Date: 11/21/16 Stop Date: 11/22/16 Status: Completed potassium chloride 10 mEq, 100 mL, Route: IVPB, Drug form: INJ, Q1H, Start date: 11/21/16 14:00:00 CDT, Duration: 4 doses or times, Stop date: 11/21/16 17:00:00 CDT Notes: Infuse at a rate of 10 mEq/hr.(Same as: KCL) Start Date: 11/21/16 Stop Date: 11/21/16 Status: Voided With Results potassium chloride 40 mEq, 2 tab, Route: PO, Drug form: ERTAB, ONCE, Dosing Weight 66.051, kg, Star t date: 11/14/16 15:08:00 CDT, Stop date: 11/14/16 15:08:00 CDT Notes: (Same as: K-Dur 20)"Do Not Crush" With food and full glass of water Start Date: 11/14/16 Stop Date: 11/14/16 Status: Completed potassium chloride 20 mEq, 100 mL, Route: IVPB, Drug form: INJ, Q2H, Dosing Weight 66.051, kg, Star t date: 11/21/16 14:00:00 CDT, Duration: 2 doses or times, Stop date: 11/21/16 1 6:00:00 CDT Notes: (Same as: KCL) Infuse no faster than 10 mEq/hr if given peripherally. Start Date: 11/21/16 Stop Date: 11/21/16 Status: Deleted potassium chloride 40 mEq, 2 tab, Route: PO, Drug form: ERTAB, Q4Hnow, Dosing Weight 65.909, kg, Pr iority: NOW, Start date: 11/10/16 9:00:00 CDT, Duration: 2 doses or times, Stop date: 11/10/16 13:00:00 CDT Start Date: 11/10/16 Stop Date: 11/10/16 Status: Completed potassium chloride 40 mEq, 2 tab, Route: PO, Drug form: ERTAB, Q4H, Dosing Weight 66.051, kg, Prior ity: NOW, Start date: 11/20/16 10:02:00 CDT, Duration: 2 doses or times, Stop da te: 11/20/16 14:00:00 CDT Notes: (Same as: K-Dur 20)"Do Not Crush" With food and full glass of water Start Date: 11/20/16 Stop Date: 11/20/16 Status: Completed potassium chloride 20 mEq/15 mL oral liquid 40 mEq, 30 mL, Route: PO, Drug form: LIQ, ONCE, Dosing Weight 66.051, kg, Start date: 11/27/16 16:07:00 CDT, Stop date: 11/27/16 16:07:00 CDT Notes: (Same as: Potassium Chloride) Start Date: 11/27/16 Stop Date: 11/27/16 Status: Completed potassium phosphate + sodium chloride 0.9% INJ 235 mL 45 mmol, 15 mL, Route: IVPB, PRN, Dosing Weight 66.051, kg, PRN Abnormal Lab Res ult, Start date: 11/25/16 9:00:00 CDT, Duration: 30 day, Stop date: 12/25/16 8:5 9:00 CDT, FOR ICU USE ONLY Notes: (Same as: K Phosphate.) 1 mMol phoshate has 1.47 mEq potassium Infuse o mateo 4 hours Start Date: 11/25/16 Stop Date: 12/04/16 Status: Discontinued potassium phosphate + sodium chloride 0.9% INJ 240 mL 30 mmol, 10 mL, Route: IVPB, PRN, Dosing Weight 66.051, kg, PRN Abnormal Lab Res ult, Start date: 11/25/16 9:00:00 CDT, Duration: 30 day, Stop date: 12/25/16 8:5 9:00 CDT, FOR ICU USE ONLY Notes: (Same as: K Phosphate.) 1 mMol phoshate has 1.47 mEq potassium Infuse o mateo 4 hours Start Date: 11/25/16 Stop Date: 12/04/16 Status: Discontinued potassium phosphate + sodium chloride 0.9% INJ 245 mL 15 mmol, 5 mL, Route: IVPB, PRN, Dosing Weight 66.051, kg, PRN Abnormal Lab Resu lt, Start date: 11/25/16 9:00:00 CDT, Duration: 30 day, Stop date: 12/25/16 8:59 :00 CDT, FOR ICU USE ONLY Notes: (Same as: K Phosphate.) 1 mMol phoshate has 1.47 mEq potassium Infuse o mateo 4 hours Start Date: 11/25/16 Stop Date: 12/04/16 Status: Discontinued potassium phosphate-sodium phosphate 250 mg-280 mg-160 mg oral powder for recons titution 2 pkt, Route: PO, Drug Form: PDR/REC, Dosing Weight 66.051, kg, PRN, PRN Abnorma l Lab Result, FOR ICU USE ONLY, Start date: 11/25/16 9:00:00 CDT, Duration: 30 d ay, Stop date: 12/25/16 8:59:00 CDT Notes: (Same as: Phos-NaK) Each 1.5 gm pkt has 250mg phosphorous. Mix w/2.5oz w ater and stir. Start Date: 11/25/16 Stop Date: 12/04/16 Status: Discontinued pravastatin 40 mg, 2 tab, Route: PO, Drug form: TAB, Bedtime, Dosing Weight 65.909, kg, Star t date: 11/05/16 21:00:00 CDT, Duration: 30 day, Stop date: 01/03/17 21:00:00 CD T Notes: (Same as: Pravachol) Start Date: 11/05/16 Stop Date: 12/04/16 Status: Discontinued propofol (ANES) Route: IV, Drug form: INJ, ONCE, Stop date: 11/17/16 12:50:00 CDT Start Date: 11/17/16 Stop Date: 11/17/16 Status: Completed protamine (ANES) (ANES) Route: IV, Drug form: INJ, Start date: 11/17/16 13:20:00 CDT, Stop date: 7 14:20:00 CDT Start Date: 11/17/16 Stop Date: 11/17/16 Status: Completed ranitidine 150 mg oral tablet 150 mg, 1 tab, Route: PO, Drug form: TAB, BID, Dosing Weight 65.909, kg, Start d ate: 11/05/16 17:00:00 CDT, Duration: 30 day, Stop date: 12/05/16 9:00:00 CDT Start Date: 11/05/16 Stop Date: 11/05/16 Status: Deleted remove patch 1 patch, Route: TOP, Bedtime, Drug form: ERFILM, Start date: 11/05/16 21:00:00 C DT, Duration: 30 day, Stop date: 01/03/17 21:00:00 CDT Notes: Remove patch 12 hours after application each day. Start Date: 11/05/16 Stop Date: 12/04/16 Status: Discontinued Robitussin 200 mg, 10 mL, Route: PO, Drug Form: LIQ, Dosing Weight 66.051, kg, Q4H, PRN Cou gh, Start date: 11/26/16 22:54:00 CDT, Duration: 30 day, Stop date: 12/26/16 22: 53:00 CDT Notes: (Same as: Robitussin) Start Date: 11/26/16 Stop Date: 12/04/16 Status: Discontinued rocuronium (ANES) Route: IV, Drug form: INJ, ONCE, Stop date: 11/17/16 12:55:00 CDT Start Date: 11/17/16 Stop Date: 11/17/16 Status: Completed sodium chloride 0.9% 1000 ml INJ (ANES) Route: IV, Total Volume: 1,000, Start date: 11/17/16 11:56:00 CDT, Stop date: 12:56:00 CDT Start Date: 11/17/16 Stop Date: 11/17/16 Status: Completed sodium chloride 0.9% 1000 ml INJ 1,000 mL 1,000 mL, Rate: 75 ml/hr, Infuse over: 13.3 hr, Route: IV, Dosing Weight 66.051 kg, Total Volume: 1,000, Start date: 11/17/16 13:56:00 CDT, Stop date: 12/17/16 13:55:00 CDT Start Date: 11/17/16 Stop Date: 11/23/16 Status: Discontinued sodium chloride 0.9% 1000 ml INJ 1,000 mL 1,000 mL, Rate: 100 ml/hr, Infuse over: 10 hr, Route: IV, Dosing Weight 65.909 k g, Total Volume: 1,000, Start date: 11/10/16 16:36:00 CDT, Duration: 30 day, Sto p date: 12/10/16 16:35:00 CDT Start Date: 11/10/16 Stop Date: 11/13/16 Status: Discontinued sodium chloride 0.9% 1000 ml INJ 2,000 mL 2,000 mL, Rate: 100 ml/hr, Infuse over: 20 hr, Route: IV, Dosing Weight 66.051 k g, Total Volume: 2,000, Start date: 11/21/16 14:21:00 CDT, Duration: 1 doses or times, Stop date: 11/22/16 14:09:00 CDT Start Date: 11/21/16 Stop Date: 11/22/16 Status: Completed sodium chloride 0.9% INJ 250 mL 250 mL, Rate: 50 ml/hr, Infuse over: 5 hr, Route: IV, Dosing Weight 66.051 kg, T otal Volume: 250, Start date: 11/28/16 3:24:00 CDT, Duration: 30 day, Stop date: 12/28/16 3:23:00 CDT Start Date: 11/28/16 Stop Date: 12/04/16 Status: Discontinued Sodium Chloride 0.9% IV 1000 mL 1,000 mL, Rate: 25 ml/hr, Infuse over: 40 hr, Route: IV, Dosing Weight 66.051 kg , Total Volume: 1,000, Start date: 11/23/16 11:22:00 CDT, Duration: 30 day, Stop date: 12/23/16 11:21:00 CDT Start Date: 11/23/16 Stop Date: 11/23/16 Status: Discontinued sodium phosphate + D5W 235 mL 45 mmol, 15 mL, Route: IVPB, PRN, Dosing Weight 66.051, kg, PRN Abnormal Lab Res ult, Start date: 11/25/16 9:00:00 CDT, Duration: 30 day, Stop date: 12/25/16 8:5 9:00 CDT, FOR ICU USE ONLY Start Date: 11/25/16 Stop Date: 12/04/16 Status: Discontinued sodium phosphate + D5W 240 mL 30 mmol, 10 mL, Route: IVPB, PRN, Dosing Weight 66.051, kg, PRN Abnormal Lab Res ult, Start date: 11/25/16 9:00:00 CDT, Duration: 30 day, Stop date: 12/25/16 8:5 9:00 CDT, FOR ICU USE ONLY Start Date: 11/25/16 Stop Date: 12/04/16 Status: Discontinued sodium phosphate + D5W 245 mL 15 mmol, 5 mL, Route: IVPB, PRN, Dosing Weight 66.051, kg, PRN Abnormal Lab Resu lt, Start date: 11/25/16 9:00:00 CDT, Duration: 30 day, Stop date: 12/25/16 8:59 :00 CDT, FOR ICU USE ONLY Start Date: 11/25/16 Stop Date: 12/04/16 Status: Discontinued Spiriva 18 mcg inhalation capsule 18 microgram, 1 inhalation, Route: INHALATION, Drug form: CAP, Daily, Dosing Jeremy ght 65.909, kg, Start date: 11/05/16 10:00:00 CDT, Duration: 30 day, Stop date: 01/04/17 9:00:00 CDT Notes: (Same As: Spiriva). Start Date: 11/05/16 Stop Date: 12/04/16 Status: Discontinued tizanidine 4 mg, 1 tab, Route: PO, Drug form: TAB, BID, Dosing Weight 66.051, kg, Start hazel e: 11/25/16 17:00:00 CDT, Duration: 30 day, Stop date: 12/25/16 9:00:00 CDT Notes: (Same As: Zanaflex) Start Date: 11/25/16 Stop Date: 11/26/16 Status: Discontinued Versed 1 mg, Route: IVP, ONCE, Dosing Weight 66.051, kg, PRN Other -See Comment, Start date: 11/21/16 16:21:00 CDT Start Date: 11/21/16 Stop Date: 11/21/16 Status: Completed Versed 1 mg, Route: IV, ONCE, Dosing Weight 66.051, kg, Priority: STAT, Start date: 14:46:00 CDT, Stop date: 11/21/16 14:46:00 CDT Start Date: 11/21/16 Stop Date: 11/21/16 Status: Completed Versed 1 mg, Route: IV, ONCE, Dosing Weight 66.051, kg, Priority: STAT, Start date: 14:32:00 CDT, Stop date: 11/21/16 14:32:00 CDT Start Date: 11/21/16 Stop Date: 11/21/16 Status: Completed Xanax 0.25 mg oral tablet 0.25 mg, 1 tab, Route: PO, Drug form: TAB, Q6H, Dosing Weight 66.051, kg, PRN An xiety, Start date: 11/13/16 11:49:00 CDT, Duration: 30 day, Stop date: 12/13/16 11:48:00 CDT Notes: With food or milk(Same as: Xanax) Start Date: 11/13/16 Stop Date: 12/04/16 Status: Discontinued Zosyn + sodium chloride 0.9% INJ 100 mL 3.375 gm, Route: IVPB, ABXQ8H, Dosing Weight 65.909, kg, CrCl >=20 ml/min infuse over 4 hours, Start date: 11/10/16 15:00:00 CDT, Duration: 30 day, Stop date: 12/10/16 7:00:00 CDT Notes: (Same as: Zosyn)Dosing based on Piperacillin component MEDICATION WA ADELAIDA Product Size: 3375 mgProduct Wasted: ___ mg Start Date: 11/10/16 Stop Date: 11/12/16 Status: Discontinued Results BLOOD BANK RESULTS 1 2 3 Most recent to oldest [Reference Range]: O POS *Unknown* (11/27/16 3:55 PM) O POS *Unknown* (11/14/16 2:23 PM) O POS *Unknown* (11/10/16 5:22 PM) ABO/Rh Negative (11/27/16 3:55 PM) Negative (11/14/16 2:23 PM) Negative (11/10/16 5:22 PM) Antibody Scrn Product available 1 (11/27/16 7:09 PM) RBC product 1Result Comment: 11/27/2016 20:16 [id number] spoke to Fatimah,1B on 11/27/2016 20:16 by Kelvin. ELECTROLYTES 1 2 3 Most recent to oldest [Reference Range]: 139 mEq/L (11/30/16 4:02 AM) 139 mEq/L (11/28/16 5:22 AM) 138 mEq/L (11/27/16 4:02 AM) Sodium Lvl [135-145 mEq/L] 5.2 mEq/L *HI* (11/30/16 4:02 AM) 3.7 mEq/L (11/28/16 5:22 AM) 3.3 mEq/L *LOW* (11/27/16 4:02 AM) Potassium Lvl [3.5-5.1 mEq/L] 98 mEq/L (11/30/16 4:02 AM) 98 mEq/L (11/28/16 5:22 AM) 98 mEq/L (11/27/16 4:02 AM) Chloride Lvl [95-109 mEq/L] 33 mEq/L *HI* (11/30/16 4:02 AM) 32 mEq/L (11/28/16 5:22 AM) 33 mEq/L *HI* (11/27/16 4:02 AM) CO2 [24-32 mEq/L] 13.2 mEq/L (11/30/16 4:02 AM) 12.7 mEq/L (11/28/16 5:22 AM) 10.3 mEq/L (11/27/16 4:02 AM) AGAP [10.0-20.0 mEq/L] CHEM PANEL 1 2 3 Most recent to oldest [Reference Range]: 0.79 mg/dL (11/30/16 4:02 AM) 0.62 mg/dL (11/28/16 5:22 AM) 0.58 mg/dL (11/27/16 4:02 AM) Creatinine Lvl [0.50-1.40 mg/dL] 88 mL/min/1.73m2 1 *NA* (11/30/16 4:02 AM) 98 mL/min/1.73m2 2 *NA* (11/28/16 5:22 AM) 100 mL/min/1.73m2 3 *NA* (11/27/16 4:02 AM) eGFR 24 mg/dL *HI* (11/30/16 4:02 AM) 17 mg/dL (11/28/16 5:22 AM) 17 mg/dL (11/27/16 4:02 AM) BUN [7-22 mg/dL] 33 *HI* (11/25/16 4:04 AM) 14 (11/14/16 6:02 AM) 21 (11/10/16 7:35 AM) B/C Ratio [6-25] 144 mg/dL *HI* (11/30/16 4:02 AM) 151 mg/dL *HI* (11/28/16 5:22 AM) 145 mg/dL *HI* (11/27/16 4:02 AM) Glucose Lvl [70-99 mg/dL] 6.1 g/dL *LOW* (11/25/16 4:04 AM) 7.0 g/dL (11/14/16 6:02 AM) 7.5 g/dL (11/10/16 7:35 AM) Total Protein [6.4-8.4 g/dL] 2.5 g/dL *LOW* (11/25/16 4:04 AM) 2.8 g/dL *LOW* (11/14/16 6:02 AM) 3.1 g/dL *LOW* (11/10/16 7:35 AM) Albumin Lvl [3.5-5.0 g/dL] 3.6 g/dL (11/25/16 4:04 AM) 4.2 g/dL (11/14/16 6:02 AM) 4.4 g/dL *HI* (11/10/16 7:35 AM) Globulin [2.7-4.2 g/dL] 0.7 (11/25/16 4:04 AM) 0.7 (11/14/16 6:02 AM) 0.7 (11/10/16 7:35 AM) A/G Ratio [0.7-1.6] 9.2 mg/dL (11/30/16 4:02 AM) 9.0 mg/dL (11/28/16 5:22 AM) 8.3 mg/dL *LOW* (11/27/16 4:02 AM) Calcium Lvl [8.5-10.5 mg/dL] 2.8 mg/dL (11/26/16 8:33 AM) 1.4 mg/dL 4 *CRIT* (11/25/16 4:57 PM) 2.2 mg/dL *LOW* (11/25/16 4:04 AM) Phosphorus [2.5-4.5 mg/dL] 1.9 mg/dL (11/28/16 5:22 AM) 1.6 mg/dL *LOW* (11/26/16 8:33 AM) 1.7 mg/dL *LOW* (11/25/16 4:57 PM) Magnesium Lvl [1.8-2.4 mg/dL] 9 unit/L (11/25/16 4:04 AM) 14 unit/L (11/14/16 6:02 AM) 14 unit/L (11/10/16 7:35 AM) ALT [0-65 unit/L] 12 unit/L (11/25/16 4:04 AM) 12 unit/L (11/14/16 6:02 AM) 9 unit/L (11/10/16 7:35 AM) AST [0-37 unit/L] 78 unit/L (11/25/16 4:04 AM) 88 unit/L (11/14/16 6:02 AM) 98 unit/L (11/10/16 7:35 AM) Alk Phos [39-136 unit/L] 0.4 mg/dL (11/25/16 4:04 AM) 0.3 mg/dL (11/14/16 6:02 AM) 0.9 mg/dL (11/10/16 7:35 AM) Bili Total [0.2-1.3 mg/dL] 59 unit/L *LOW* (11/04/16 7:38 PM) Lipase Lvl [73-393 unit/L] 0.08 ng/mL (11/10/16 7:35 AM) Procalcitonin Lvl [0.00-0.10 ng/mL] 1Result Comment: The eGFR is calculated using the [...] from the National Kid[employer] Education Program ( NK[employer]) which additionally recommends that when the eGFR is used in patients with extremes of body mass index for purposes of drug dosing, the eGFR should be mul tiplied by the estimated BMI. 2Result Comment: The eGFR is calculated using the [...] from the [employer] Education Program ( NK[employer]) which additionally recommends that when the eGFR is used in patients with extremes of body mass index for purposes of drug dosing, the eGFR should be mul tiplied by the estimated BMI. 3Result Comment: The eGFR is calculated using the [...] from the National Kid[employer] Education Program ( NK[employer]) which additionally recommends that when the eGFR is used in patients with extremes of body mass index for purposes of drug dosing, the eGFR should be mul tiplied by the estimated BMI. 4Result Comment: Critical Result(s) called to Adrianne Gonzalez at 11/25/2016 19:46 by deidra. Read back OK. CARDIAC ENZYMES 1 2 3 Most recent to oldest [Reference Range]: 91 unit/L (11/05/16 3:46 AM) 88 unit/L (11/05/16 3:46 AM) 118 unit/L (11/04/16 7:38 PM) Total CK [12-191 unit/L] 1.4 ng/mL (11/05/16 3:46 AM) 1.2 ng/mL (11/05/16 3:46 AM) 1.6 ng/mL (11/04/16 7:38 PM) CK MB [0.5-3.6 ng/mL] 1.6 (11/05/16 3:46 AM) 1.3 (11/05/16 3:46 AM) 1.4 (11/04/16 7:38 PM) CK MB Index [0.0-2.5] 0.04 ng/mL (11/25/16 4:04 AM) <0.02 ng/mL (11/05/16 3:46 AM) <0.02 ng/mL (11/05/16 3:46 AM) Troponin-I [0.00-0.40 ng/mL] 329 pg/mL *HI* (11/04/16 7:38 PM) BNP [<=100 pg/mL] LIPIDS 1 2 3 Most recent to oldest [Reference Range]: 6.88 (11/13/16 7:31 AM) CHD Risk [4.00-7.30] 172 mg/dL (11/13/16 7:31 AM) Chol [<=199 mg/dL] 154 mg/dL *HI* (11/13/16 7:31 AM) Trig [<=149 mg/dL] 25 mg/dL *LOW* (11/13/16 7:31 AM) HDL [>=61 mg/dL] 116 mg/dL *HI* (11/13/16 7:31 AM) LDL (Calculated) [<=99 mg/dL] 31 *NA* (11/13/16 7:31 AM) VLDL URINE AND STOOL 1 2 3 Most recent to oldest [Reference Range]: Clear (11/11/16 2:34 PM) UA Turbidity [Clear] Ltyellow *NA* (11/11/16 2:34 PM) UA Color 6.0 (11/11/16 2:34 PM) UA pH [5.0-8.0] 1.009 (11/11/16 2:34 PM) UA Spec Grav [<=1.030] Negative mg/dL *NA* (11/11/16 2:34 PM) UA Glucose [Negative mg/dL] Negative (11/11/16 2:34 PM) UA Blood [Negative] Negative mg/dL *NA* (11/11/16 2:34 PM) UA Ketones [Negative mg/dL] Negative mg/dL (11/11/16 2:34 PM) UA Protein [Negative mg/dL] <=1.0 mg/dL *NA* (11/11/16 2:34 PM) UA Urobilinogen [0.1-1.0 mg/dL] Negative *NA* (11/11/16 2:34 PM) UA Bili [Negative] Trace *ABN* (11/11/16 2:34 PM) UA Leuk Est [Negative] Negative (11/11/16 2:34 PM) UA Nitrite [Negative] 7 /HPF *HI* (11/11/16 2:34 PM) UA WBC [0-5 /HPF] 1 /HPF (11/11/16 2:34 PM) UA RBC [0-2 /HPF] Occasional /HPF *NA* (11/11/16 2:34 PM) UA Bacteria [None Seen /HPF] None Seen *NA* (11/11/16 2:34 PM) UA Sq Epi IMMUNOLOGY 1 2 3 Most recent to oldest [Reference Range]: 151.0 mg/L *HI* (11/10/16 7:35 AM) CRP [<=2.9 mg/L] HEMATOLOGY 1 2 3 Most recent to oldest [Reference Range]: 9.3 K/CMM (11/30/16 4:02 AM) 9.8 K/CMM (11/28/16 5:22 AM) 9.7 K/CMM (11/27/16 3:55 PM) WBC [3.7-10.4 K/CMM] 3.44 M/CMM *LOW* (11/30/16 4:02 AM) 3.57 M/CMM *LOW* (11/28/16 5:22 AM) 2.72 M/CMM *LOW* (11/27/16 3:55 PM) RBC [4.70-6.10 M/CMM] 9.4 g/dL *LOW* (11/30/16 4:02 AM) 9.9 g/dL *LOW* (11/28/16 5:22 AM) 7.2 g/dL *LOW* (11/27/16 3:55 PM) Hgb [14.0-18.0 g/dL] 28.8 % *LOW* (11/30/16 4:02 AM) 29.6 % *LOW* (11/28/16 5:22 AM) 22.3 % *LOW* (11/27/16 3:55 PM) Hct [42.0-54.0 %] 83.8 fL (11/30/16 4:02 AM) 83.0 fL (11/28/16 5:22 AM) 82.0 fL (11/27/16 3:55 PM) MCV [80.0-94.0 fL] 27.3 pg (11/30/16 4:02 AM) 27.7 pg (11/28/16 5:22 AM) 26.6 pg *LOW* (11/27/16 3:55 PM) MCH [27.0-31.0 pg] 32.6 g/dL (11/30/16 4:02 AM) 33.4 g/dL (11/28/16 5:22 AM) 32.5 g/dL (11/27/16 3:55 PM) MCHC [32.0-36.0 g/dL] 15.5 % *HI* (11/30/16 4:02 AM) 15.6 % *HI* (11/28/16 5:22 AM) 15.5 % *HI* (11/27/16 3:55 PM) RDW [11.5-14.5 %] 439 K/CMM (11/30/16 4:02 AM) 422 K/CMM (11/28/16 5:22 AM) 444 K/CMM (11/27/16 3:55 PM) Platelet [133-450 K/CMM] 8.3 fL (11/30/16 4:02 AM) 7.9 fL (11/28/16 5:22 AM) 8.0 fL (11/27/16 3:55 PM) MPV [7.4-10.4 fL] 69.5 % (11/30/16 4:02 AM) 74.0 % (11/28/16 5:22 AM) 74.3 % (11/27/16 3:55 PM) Segs [45.0-75.0 %] 19.0 % *LOW* (11/30/16 4:02 AM) 14.7 % *LOW* (11/28/16 5:22 AM) 15.3 % *LOW* (11/27/16 3:55 PM) Lymphocytes [20.0-40.0 %] 9.3 % (11/30/16 4:02 AM) 8.3 % (11/28/16 5:22 AM) 8.2 % (11/27/16 3:55 PM) Monocytes [2.0-12.0 %] 1.8 % (11/30/16 4:02 AM) 2.0 % (11/28/16 5:22 AM) 1.9 % (11/27/16 3:55 PM) Eosinophils [0.0-4.0 %] 0.4 % (11/30/16 4:02 AM) 1.0 % (11/28/16 5:22 AM) 0.3 % (11/27/16 3:55 PM) Basophils [0.0-1.0 %] 6.5 K/CMM (11/30/16 4:02 AM) 7.3 K/CMM (11/28/16 5:22 AM) 7.2 K/CMM (11/27/16 3:55 PM) Segs-Bands # [1.5-8.1 K/CMM] 1.8 K/CMM (11/30/16 4:02 AM) 1.4 K/CMM (11/28/16 5:22 AM) 1.5 K/CMM (11/27/16 3:55 PM) Lymphocytes # [1.0-5.5 K/CMM] 0.9 K/CMM *HI* (11/30/16 4:02 AM) 0.8 K/CMM (11/28/16 5:22 AM) 0.8 K/CMM (11/27/16 3:55 PM) Monocytes # [0.0-0.8 K/CMM] 0.2 K/CMM (11/30/16 4:02 AM) 0.2 K/CMM (11/28/16 5:22 AM) 0.2 K/CMM (11/27/16 3:55 PM) Eosinophils # [0.0-0.5 K/CMM] 0.1 K/CMM (11/28/16 5:22 AM) 0.1 K/CMM (11/07/16 12:30 PM) Basophils # [0.0-0.2 K/CMM] Normal (11/30/16 4:02 AM) RBC Morph Normal (11/30/16 4:02 AM) Plt Morph 63 mm/hr *HI* (11/10/16 7:35 AM) Sed Rate [0-15 mm/hr] 13.9 seconds (11/23/16 12:10 PM) 13.3 seconds (11/14/16 2:23 PM) 14.0 seconds (11/10/16 5:22 PM) PT [12.0-14.7 seconds] 1.05 (11/23/16 12:10 PM) 0.99 (11/14/16 2:23 PM) 1.06 (11/10/16 5:22 PM) INR [0.85-1.17] 23.7 seconds (11/23/16 12:10 PM) 30.5 seconds (11/14/16 2:23 PM) 35.9 seconds *HI* (11/10/16 5:22 PM) PTT [22.9-35.8 seconds] BACTERIAL - SEROLOGY 1 2 3 Most recent to oldest [Reference Range]: Negative (11/17/16 7:01 PM) MRSA by PCR Immunizations Given and Recorded Vaccine Date Status Refusal Reason Hx influenza vaccine-unspecified1 04/24/14 Given influenza virus vaccine, inactivated 03/17/16 Given influenza virus vaccine, inactivated2 04/24/14 Given pneumococcal 23-valent vaccine3 11/11/13 Given 1Result Comment: done high dose. Migrated from OBS ; Data migrated from [employer] on 07/31/2015. 2Result Comment: fluzone high dose [[id number]]. Migrated from OBS ; Data migrated from [employer] on 07/31/2015. 3Result Comment: pneumovax 23 [[id number]]. Migrated from OBS VIS: Pneumovax 23: 04/03/09 ; Data migrated from [employer] on 07/31/2015. Procedures Procedure Date Related Diagnosis Body Site Bilateral replacement of knee joints Carotid endarterectomy1 Implantation of cardiac pacemaker Insertion of chest tube2 PTCA - Percutaneous transluminal coronary angioplasty Surgical procedure on cervical spine 1Right carotid artery 2due to pleural effusion Social History Social History Type Response Substance Abuse Use: None. Exercise Exercise type: none. Alcohol Past, Previous treatment: None. Smoking Status Former smoker; Type: Cigarettes; Tobacco use per day: 40; Started at age: 19.0; Stopped at age: 64; Exposure to Tobacco Smoke None; Cigarette Smoking Last 365 Days No; Reg Smoking Cessation Counseling Yes Assessment and Plan Extracted from: Title: Clinical Document Author: Castillo Patel MD Date: 12/04/16 Progress Note Cardiology [facility] Impression: CAD remote hx PCI of RCA and LAD (2.5 x18 Cypher) recent MPI fixed inferior defect no ischemia Syncope - recurent Right ICA re-stenosis hx of prior CEA no w s/p Redo R CEA 11/16 Orthostatic hypotension Chronic diastolic heart failure Pacemaker s/p PEG Plan: Cont present medications plavix/statin/beta dolores PT follow Subjective: Patient seen and examined. no cp or sob, no palpitations Objective: Telemetry VitalsTmp(F)[id number] 12/04 08:[id number]--- 12/04 04:[id number]--- 12/04 00:[id number]--- 12/03 20:[id number]--- 12/03 16:[id number]--- 24 Hr Tmax: 97.9F (36.61c) at 12/04 04:00Vital Signs are the last 5 in the past 48 hours. HEENT: Neck Supple, right cervical surgical wound CVS: Regular rate, Normal S1S2 LUNGS: decreased BS ABD: Soft, Non-tender, + BS + peg EXT: No ankle edema, palpable distal pulses Skin: No ulcers Neuro: Grossly non-focal Labs (Last four charted values) WBC 9.3(NOV 30)9.8(NOV 28)9.7(NOV 27)H 12.1(NOV 27) Hgb L 9.4(NOV 30)L 9.9(NOV 28)L 7.2(NOV 27)L 7.2(NOV 27) Hct L 28.8(NOV 30)L 29.6(NOV 28)L 22.3(NOV 27)L 22.2(NOV 27) Plt 439(NOV 30)422(NOV 02)444(NOV 27)447(NOV 27) Na 139(NOV 30)139(NOV 02)138(NOV 27)140(NOVEMBER 25) K H 5.2(NOV 04)3.7(NOV 02)L 3.3(NOV 27)L 3.2(NOVEMBER 26) CO2 H 33(NOV 30)32(NOV 02)H 33(NOV 27)29(NOVEMBER 25) Cl 98(NOV 04)98(NOV 02)98(NOV 27)103(NOVEMBER 25) Cr 0.79(NOV 04)0.62(NOV 02)0.58(NOV 27)0.61(NOVEMBER 25) BUN H 24(NOV 04)17(NOV 02)17(NOV 27)20(NOVEMBER 25) Glucose Random H 144(SAMEER 04)H 151(NOV 28)H 145(NOV 27)H 151(NOVEMBER 25) Mg 1.9(NOV 28)L 1.6(NOVEMBER 26)L 1.7(NOVEMBER 25)L 1.6(NOVEMBER 25) Phos 2.8(NOVEMBER 26)C 1.4(NOVEMBER 25)L 2.2(NOVEMBER 25)2.6(NOVEMBER 05) Ca 9.2(NOV 30)9.0(NOV 28)L 8.3(NOV 27)9.1(NOVEMBER 25) PT 13.9(NOVEMBER 23)13.3(NOVEMBER 14)14.0(NOVEMBER 10)13.2(NOVEMBER 04) INR 1.05(NOVEMBER 23)0.99(NOVEMBER 14)1.06(NOVEMBER 10)0.98(NOVEMBER 04) PTT 23.7(NOVEMBER 23)30.5(NOVEMBER 14)H 35.9(NOVEMBER 10)27.5(NOVEMBER 04) Troponin 0.04(NOVEMBER 25)<0.02(NOVEMBER 05)<0.02(NOVEMBER 05)<0.02(NOVEMBER 04) CK MB 1.2(NOVEMBER 05)1.4(NOVEMBER 05)1.6(NOVEMBER 04) Total CK 88(NOVEMBER 05)91(NOVEMBER 05)118(NOVEMBER 04) Scheduled Meds (10): 11/05/16 DULoxetine (Cymbalta) 60 mg PO BID 11/09/16 clopidogrel (Plavix) 75 mg PO Daily 11/05/16 famotidine 20 mg PO BID 11/05/16 furosemide (furosemide 20 mg oral tablet) 20 mg PO Daily 11/17/16 heparin 5,000 unit SUB-Q Q12H 11/07/16 lidocaine topical (lidocaine topical patch (5% film)) 1 patch TOP Daily 11/24/16 metoprolol (metoprolol tartrate) 50 mg PO Q12H 11/05/16 pravastatin 40 mg PO Bedtime 11/05/16 remove patch 1 patch TOP Bedtime 11/05/16 tiotropium (Spiriva 18 mcg inhalation capsule) 18 microgram INHALATION Daily Continuous Infusions (1): 11/28/16 sodium chloride 0.9% INJ 250 mL 250 mL 50 ml/hr
--- OUTSIDE RECORDS SUMMARY | 2018-09-22 05:58 | XMS REPORT | Summary of Care ---
Author Author [facility] Organization [facility] Address Unknown Phone Unavailable Encounter [facility] [email or web address](FIN) [id number] Date(s): 06/11/17 - 06/12/17 [facility] [address], [address] [place], [place] [id number]- [phone] Vital Signs No data available for this section Problem List Condition Effective Dates Status Health Status Informant Anxiety 03/02/13 Active disorder(Confirmed)1 Debility(Confirmed) Active Benign essential Active hypertension(Confirm ed) 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 CAD (coronary artery Active disease)(Confirmed) Candidal Active intertrigo(Confirmed ) Cardiac pacemaker3 04/24/14 Active Carotid Active stenosis(Confirmed) Chronic back 06/29/59 Active pain(Confirmed)4 Chronic obstructive 04/24/14 Active lung disease5 Depression, Active major(Confirmed) Dizziness6 05/09/14 Active Gastritis(Confirmed) Active 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) H/O carotid Active endarterectomy(Confi rmed) Medicare annual Active wellness visit, subsequent(Confirmed ) Mixed Active hyperlipidemia(Confi rmed)7 Orthostatic 11/03/14 Active hypotension8, 9 [id number] 03/02/13 Active Encounter for Active immunization(Confirm ed) Prediabetes(Confirme Active d) S/P PTCA Active (percutaneous transluminal coronary angioplasty)(Confirm ed) Screening for Active prostate cancer(Confirmed) Sick sinus Active [id number] Subcortical Active hemorrhage(Confirmed ) 1Data migrated from [...] Substance Reaction Severity Status NKDA Active Medications No data available for this section Results No data available for this section Immunizations Given and Recorded Vaccine Date Status Refusal Reason pneumococcal 13-valent vaccine 06/02/17 Given influenza virus vaccine, inactivated1 04/28/17 Given influenza virus vaccine, inactivated 03/17/16 Given influenza virus vaccine, inactivated2 04/24/14 Given Hx influenza vaccine-unspecified3 04/24/14 Given pneumococcal 23-valent vaccine4 11/11/13 Given 1Result Comment: Patient waited 15 min with no reaction. 2Result Comment: fluzone high dose [[id number]]. Migrated from OBS ; Data migrated from [employer] on 07/31/2015. 3Result Comment: done high dose. Migrated from OBS ; Data migrated from [employer] on 07/31/2015. 4Result Comment: pneumovax 23 [[id number]]. Migrated from OBS VIS: Pneumovax 23: 04/03/09 ; Data migrated from [employer] on 07/31/2015. Procedures Procedure Date Related Diagnosis [...] None. Smoking Status Former smoker; Type: Cigarettes; Exposure to Tobacco Smoke None; Cigarette Smoking Last 365 Days No; Reg Smoking Cessation Counseling Yes; Tobacco use per day: 40; Started at age: 19.0; Stopped at age: 64; Assessment and Plan No data available for this section
--- OUTSIDE RECORDS SUMMARY | 2018-09-22 05:58 | XMS REPORT | Summary of Care ---
Author Author [facility] Organization [facility] Address Unknown Phone Unavailable Encounter HQ Torri_karon(FIN) [id number] Date(s): 02/10/18 - 02/10/18 [facility] [address], [address] [place] [address]- [phone] Discharge Disposition: Home or Self Care Attending Physician: Yesenia Solano MD Vital Signs Most recent to 1 oldest [Reference Range]: Height 172.72 cm (02/10/18 3:09 PM) Temperature Oral 96.2 DegF [96.4-99.1 DegF] *LOW* (02/10/18 3:09 PM) Blood Pressure 139/79 mmHg [90-140/60-90 mmHg] (02/10/18 3:09 PM) Respiratory Rate 16 BRMIN [14-20 BRMIN] (02/10/18 3:09 PM) Peripheral Pulse 59 bpm Rate [60-100 bpm] *LOW* (02/10/18 3:09 PM) Weight 70.085 kg (02/10/18 3:09 PM) Body Mass Index 23.49 m2 (02/10/18 3:09 PM) Problem List Condition Effective Dates Status Health Status Informant Anemia due to acute Active blood loss(Confirmed) Anxiety 03/02/13 Active disorder(Confirmed)1 Physical Active debility(Confirmed) Debility(Confirmed) Active Benign essential Active hypertension(Confirm ed) 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 Bilateral hearing Active loss(Confirmed) CAD (coronary artery Active disease)(Confirmed) Candidal Active intertrigo(Confirmed ) Cardiac 04/24/14 Active pacemaker(Confirmed) 3 Carotid Active stenosis(Confirmed) Chronic back 06/29/59 Active pain(Confirmed)4 Chronic obstructive 04/24/14 Active lung disease5 Depression, Active major(Confirmed) Dizziness(Confirmed) 05/09/14 Active 6 Gastritis(Confirmed) Active 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) H/O carotid Active endarterectomy(Confi rmed) History of Active fall(Confirmed) Medicare annual Active wellness visit, subsequent(Confirmed ) Mixed Active hyperlipidemia(Confi rmed)7 Orthostatic 11/03/14 Active hypotension(Confirme d)8, 9 [id number] 03/02/13 Active Encounter for Active immunization(Confirm ed) Prediabetes(Confirme Active d) S/P PTCA Active (percutaneous transluminal coronary angioplasty)(Confirm ed) Screening for Active prostate cancer(Confirmed) Seborrheic Active dermatitis(Confirmed ) Left shoulder Active pain(Confirmed) Sick sinus Active syndrome(Confirmed)1 1 Subcortical Resolved hemorrhage(Confirmed ) Tinnitus(Confirmed) Active Easy Active fatigability(Confirm ed) Unsteady Active gait(Confirmed) UGIB (upper Resolved gastrointestinal bleed)(Confirmed) Blood vessel Active disorder(Confirmed) Vertigo(Confirmed) Active 1Data migrated from [employer] on 11/25/14. [...] Substance Reaction Severity Status NKDA Active Medications tizanidine 2 mg oral tablet 2 mg=1 tab, PO, BID, PRN for muscle spasms, # 60 tab, 0 Refill(s), Pharmacy: [id number] Start Date: 02/10/18 Stop Date: 03/05/18 Status: Discontinued Results No data available for this section Immunizations Given and Recorded Vaccine Date Status Refusal Reason influenza virus vaccine, inactivated1 05/05/18 Given influenza virus vaccine, inactivated2 04/28/17 Given influenza virus vaccine, inactivated 03/17/16 Given influenza virus vaccine, inactivated3 04/24/14 Given pneumococcal 13-valent vaccine 06/02/17 Given Hx influenza vaccine-unspecified4 04/24/14 Given pneumococcal 23-valent vaccine5 11/11/13 Given 1Result Comment: Patient waited 15 min with no reaction. 2Result Comment: Patient waited 15 min with no reaction. 3Result Comment: fluzone high dose [[id number]]. Migrated from OBS ; Data migrated from [employer] on 07/31/2015. 4Result Comment: done high dose. Migrated from OBS ; Data migrated from [employer] on 07/31/2015. 5Result Comment: pneumovax 23 [[id number]]. Migrated from OBS VIS: Pneumovax 23: 04/03/09 ; Data migrated from [employer] on 07/31/2015. 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 POSTOPERATIVE DIAGNOSIS: Recurrent right carotid artery stenosis. OPERATION: Redo right carotid endarterectomy with bovine pericardial patch angioplasty, com pletion of the ultrasound exam. 4Pneumovax 5due to pleural effusion Social History Social History Type Response Substance Abuse Use: None. Exercise Exercise type: none. Alcohol Past, Previous treatment: None. Smoking Status Former smoker; Type: Cigarettes; Exposure to Tobacco Smoke None; Cigarette Smoking Last 365 Days No; Reg Smoking Cessation Counseling Yes; Tobacco use per day: 40; Started at age: 19.0; Stopped at age: 64; entered on: 08/05/18 Assessment and Plan No data available for this section
--- OUTSIDE RECORDS SUMMARY | 2018-09-22 05:58 | XMS REPORT | Summary of Care ---
Author Author [facility] Organization [facility] Address Unknown Phone Unavailable Encounter HQ Torri_karon(FIN) [id number] Date(s): 08/27/18 - 08/28/18 [facility] [address], [address] [place] [address]- [phone] Vital Signs No data available for this [...] rmed)7 Orthostatic 11/03/14 Active hypotension(Confirme d)8, 9 [id number] 03/02/13 Active Encounter for Active immunization(Confirm ed) [...] Substance Reaction Severity Status NKDA Active Medications ALPRAZOLam 0.5 mg oral tablet, disintegrating 0.5 mg=1 tab, PO, BID, PRN for anxiety, # 60 tab, 0 Refill(s) Start Date: 08/27/18 Stop Date: 08/28/19 Status: Ordered Results No data available for this section [...] no reaction. 3Result Comment: fluzone high dose [[id number]]. Migrated from OBS ; Data migrated from [employer] on 07/31/2015. 4Result Comment: done high dose. Migrated from OBS ; Data migrated from [employer] on 07/31/2015. 5Result Comment: pneumovax 23 [cvx33]. [...]
--- OUTSIDE RECORDS SUMMARY | 2018-09-22 05:58 | XMS REPORT | Summary of Care ---
Author Author [facility] Organization [facility] Address Unknown Phone Unavailable Encounter HQ Torri_karon(FIN) [id number] Date(s): 10/06/17 - 10/06/17 [facility] [address], [address] [place] [address]- [phone] Discharge Disposition: Home or Self Care Attending Physician: Yesenia Solano MD Vital Signs Most recent to 1 oldest [Reference Range]: Height 172.72 cm (10/06/17 3:24 PM) Temperature Oral 97.3 DegF [96.4-99.1 DegF] (10/06/17 3:24 PM) Blood Pressure 118/74 mmHg [90-140/60-90 mmHg] (10/06/17 3:24 PM) Respiratory Rate 16 BRMIN [14-20 BRMIN] (10/06/17 3:24 PM) Peripheral Pulse 80 bpm Rate [60-100 bpm] (10/06/17 3:24 PM) Weight 71.136 kg (10/06/17 3:24 PM) Body Mass Index 23.85 m2 (10/06/17 3:24 PM) Problem List Condition Effective Dates Status [...] rmed)7 Orthostatic 11/03/14 Active hypotension(Confirme d)8, 9 [id number] 03/02/13 Active Encounter for Active immunization(Confirm ed) Prediabetes(Confirme Active d) S/P PTCA Active (percutaneous transluminal coronary angioplasty)(Confirm ed) Screening for Active prostate cancer(Confirmed) Seborrheic Active dermatitis(Confirmed ) Sick sinus Active Subcortical Active hemorrhage(Confirmed ) Easy Active fatigability(Confirm ed) 1Data migrated from [employer] on 11/25/14. [...] Substance Reaction Severity Status NKDA Active Medications furosemide 20 mg oral tablet 20 mg=1 tab, PO, Daily, # 90 tab, 1 Refill(s), Pharmacy: [id number] Start Date: 10/06/17 Stop Date: 04/04/18 Status: Ordered hydrocortisone topical 2.5% lotion 1 appl, TOP, BID, apply in a thin film to face and rub in gently and completely, # 60 ml, 0 Refill(s) Start Date: 10/06/17 Stop Date: 10/06/17 Status: Discontinued hydrocortisone topical 2.5% lotion 1 appl, TOP, BID, apply in a thin film to face and rub in gently and completely, # 120 mL, 1 Refill(s), Pharmacy: [id number] Start Date: 10/06/17 Stop Date: 10/06/18 Status: Ordered nystatin topical 100,000 units/g powder 1 appl, TOP, TID, # 60 gm, 1 Refill(s), Pharmacy: [facility] [id number] Start Date: 10/06/17 Stop Date: 10/06/18 Status: Ordered nystatin topical 100,000 units/g powder 1 appl, TOP, TID, # 60 gm, 0 Refill(s) Start Date: 10/06/17 Stop Date: 10/13/17 Status: Ordered Results No data available for [...] no reaction. 2Result Comment: fluzone high dose [[id number]]. Migrated from OBS ; Data migrated from [email or web address] on 07/31/2015. 3Result Comment: done high dose. Migrated from OBS ; Data migrated from [email or web address] on 07/31/2015. 4Result Comment: pneumovax 23 [[id number]]. Migrated from OBS VIS: Pneumovax 23: 04/03/09 ; Data migrated from [email or web address] on 07/31/2015. Procedures Procedure Date Related Diagnosis Body Site Status Bilateral replacement of knee joints Completed Carotid endarterectomy1 Completed Implantation of cardiac pacemaker Completed Insertion of chest tube2 Completed PTCA - Percutaneous transluminal coronary Completed angioplasty Surgical procedure on cervical spine Completed 1Right carotid artery 2due to pleural effusion Social History Social History Type Response Substance Abuse Use: None. Exercise Exercise type: none. Alcohol Past, Previous treatment: None. Smoking Status Former smoker; Type: Cigarettes; Exposure to Tobacco Smoke None; Cigarette Smoking Last 365 Days No; Reg Smoking Cessation Counseling Yes; Tobacco use per day: 40; Started at age: 19.0; Stopped at age: 64; entered on: 10/06/17 Assessment and Plan No data available for this section
--- OUTSIDE RECORDS SUMMARY | 2018-09-22 05:58 | XMS REPORT | Summary of Care ---
Author Author [facility] Organization [facility] Address Unknown Phone Unavailable Encounter HQ Eileen(KAILA) [id number] Date(s): 06/01/17 - 06/02/[address] [facility] [address] [place] [address]- Discharge Disposition: Home or Self Care Attending Physician: Tor Echols MD Admitting Physician: Tor Echols MD Vital Signs 1 2 3 Most recent to oldest [Reference Range]: 170.18 cm (06/01/17 5:17 PM) 167.64 cm (06/01/17 9:24 AM) Height 98.5 DegF (06/02/17 7:57 AM) 97.8 DegF (06/01/17 11:38 PM) 97.8 DegF (06/01/17 7:43 PM) Temperature Oral [96.4-99.1 DegF] 138/70 mmHg (06/02/17 7:57 AM) 118/68 mmHg (06/01/17 11:38 PM) 168/89 mmHg *HI* (06/01/17 7:43 PM) Blood Pressure [90-140/60-90 mmHg] 18 BRMIN (06/02/17 7:57 AM) 16 BRMIN (06/01/17 11:38 PM) 15 BRMIN (06/01/17 7:43 PM) Respiratory Rate [14-20 BRMIN] 67 bpm (06/02/17 7:57 AM) 65 bpm (06/01/17 11:38 PM) 64 bpm (06/01/17 7:43 PM) Peripheral Pulse Rate [60-100 bpm] 73.545 kg (06/01/17 5:59 PM) 68.182 kg (06/01/17 5:17 PM) 79.545 kg (06/01/17 9:24 AM) Weight 23.54 m2 (06/01/17 5:17 PM) 28.3 m2 (06/01/17 9:24 AM) Body Mass Index Problem List Condition Effective [...] hyperlipidemia(Confi rmed)7 Orthostatic 11/03/14 Active hypotension8, 9 [id number] 03/02/13 Active Encounter for Active immunization(Confirm ed) Prediabetes(Confirme Active d) S/P PTCA Active (percutaneous transluminal coronary angioplasty)(Confirm ed) Screening for Active prostate cancer(Confirmed) Sick sinus Active [id number] Subcortical Active hemorrhage(Confirmed ) 1Data migrated from [...] Substance Reaction Severity Status NKDA Active Medications acetaminophen-hydrocodone 325 mg-10 mg oral tablet 1 tab, Route: PO, Drug Form: TAB, Dosing Weight 73.545, kg, Q6H, PRN Pain Score 4-6, Start date: 06/02/17 9:38:00 DATABASE MANAGER, Duration: 30 day, Stop date: 07/02/17 9:3 7:00 DATABASE MANAGER Notes: Do not exceed 4gm/day of acetaminophen. (Same as: [place] 325/10) Start Date: 06/02/17 Stop Date: 06/02/17 Status: Discontinued aspirin 324 mg, 4 tab, Route: CHEW, Drug form: CHEWTAB, ONCE, Dosing Weight 79.545, kg, Priority: STAT, Start date: 06/01/17 13:05:00 DATABASE MANAGER, Stop date: 06/01/17 13:05:00 DATABASE MANAGER Notes: Take with food. Start Date: 06/01/17 Stop Date: 06/01/17 Status: Completed aspirin 81 mg tablet, enteric coated 81 mg, 1 tab, Route: PO, Drug form: ECTAB, Daily, Dosing Weight 73.545, kg, Star t date: 06/02/17 10:20:00 DATABASE MANAGER, Duration: 30 day, Stop date: 07/02/17 9:00:00 DATABASE MANAGER Notes: Do not crush or chew.(Same As: Ecotrin) Start Date: 06/02/17 Stop Date: 06/02/17 Status: Discontinued azithromycin + Sodium Chloride 0.9% IV 250 mL 500 mg, Route: IVPB, ONCE, Dosing Weight 79.545, kg, Priority: STAT, Start date: 06/01/17 13:06:00 DATABASE MANAGER, Stop date: 06/01/17 13:06:00 DATABASE MANAGER, ABX Indication: Pneumo ellie Notes: (Same As: Zithromax IV) Start Date: 06/01/17 Stop Date: 06/01/17 Status: Completed Ceftin 250 mg oral tablet 250 mg=1 tab, PO, BID, X 10 day, # 20 tab, 0 Refill(s) Start Date: 06/02/17 Stop Date: 06/12/17 Status: Ordered clopidogrel 75 mg, 1 tab, Route: PO, Drug form: TAB, Daily, Dosing Weight 73.545, kg, Start date: 06/02/17 10:49:00 DATABASE MANAGER, Duration: 30 day, Stop date: 07/02/17 9:00:00 DATABASE MANAGER Notes: (Same As: Plavix) Start Date: 06/02/17 Stop Date: 06/02/17 Status: Discontinued Combivent Respimat CFC free 100 mcg-20 mcg/inh inhalation aerosol 1 puff, Route: INHALATION, Drug Form: AERO, Dosing Weight 73.545, kg, RQID, Star t date: 06/02/17 11:00:00 DATABASE MANAGER, Duration: 30 day, Stop date: 07/02/17 7:00:00 DATABASE MANAGER Notes: Same as: Combivent RespimatWASTE: Aerosol - Return to Pharmacy Start Date: 06/02/17 Stop Date: 06/02/17 Status: Discontinued Cymbalta 60 mg, 2 cap, Route: PO, Drug form: DRC, BID, Dosing Weight 73.545, kg, Start da te: 06/02/17 10:49:00 DATABASE MANAGER, Duration: 30 day, Stop date: 07/02/17 9:00:00 DATABASE MANAGER Notes: (Same as: Cymbalta) (Do Not Crush) Start Date: 06/02/17 Stop Date: 06/02/17 Status: Discontinued docusate sodium 100 mg oral capsule 100 mg, 1 cap, Route: PO, Drug form: CAP, Daily, Dosing Weight 73.545, kg, PRN C onstipation, Start date: 06/02/17 9:38:00 DATABASE MANAGER, Duration: 30 day, Stop date: 10/14 9:37:00 DATABASE MANAGER Notes: (Same as: Colace) (Do Not Crush) Start Date: 06/02/17 Stop Date: 06/02/17 Status: Discontinued docusate sodium 100 mg oral capsule 100 mg=1 cap, PO, Daily, PRN Constipation, # 20 cap, 0 Refill(s) Start Date: 06/01/17 Status: Ordered DuoNeb inhalation solution 9 mL, Route: NEB, Dosing Weight 79.545, kg, ONCE, STAT, Start date: 06/01/17 10: 00:00 DATABASE MANAGER, Stop date: 06/01/17 10:00:00 DATABASE MANAGER Start Date: 06/01/17 Stop Date: 06/01/17 Status: Completed enoxaparin 40 mg, 0.4 mL, Route: SUB-Q, Drug form: INJ, [id number], Dosing Weight 73.545, kg, Start date: 06/01/17 21:00:00 DATABASE MANAGER, Duration: 30 day, Stop date: 06/30/17 21:00: 00 DATABASE MANAGER Notes: (Same as: Lovenox) Start Date: 06/01/17 Stop Date: 06/02/17 Status: Discontinued famotidine 20 mg, 1 tab, Route: PO, Drug form: TAB, Q12H, Start date: 06/02/17 10:52:00 DATABASE MANAGER , Duration: 30 day, Stop date: 07/02/17 9:00:00 DATABASE MANAGER Notes: (Same as: Pepcid) Start Date: 06/02/17 Stop Date: 06/02/17 Status: Discontinued furosemide 20 mg oral tablet 20 mg, 1 tab, Route: PO, Drug form: TAB, Breakfast, Dosing Weight 73.545, kg, St art date: 06/03/17 10:50:00 DATABASE MANAGER, Duration: 30 day, Stop date: 07/03/17 8:00:[address] Notes: (Same as: Lasix) May cause GI upset. Give with food or milk. Start Date: 06/03/17 Stop Date: 06/02/17 Status: Canceled lidocaine topical patch (5% film) 1 patch, Route: TOP, Daily, Drug form: FILM, Start date: 06/02/17 10:53:00 DATABASE MANAGER, Duration: 30 day, Stop date: 07/02/17 9:00:00 DATABASE MANAGER Notes: Apply only once for up to 12 hours in [id number] period (12 hours on and 12 hours off).(Same as: Lidoderm)"Remove old patch before application of new patch" Start Date: 06/02/17 Stop Date: 06/02/17 Status: Discontinued Lopressor 50 mg, 1 tab, Route: PO, Drug form: TAB, Q12H, Dosing Weight 73.545, kg, Start d ate: 06/02/17 10:50:00 DATABASE MANAGER, Duration: 30 day, Stop date: 07/02/17 9:00:00 DATABASE MANAGER Notes: (Same as: Lopressor) Start Date: 06/02/17 Stop Date: 06/02/17 Status: Discontinued magnesium sulfate 2 gm, Route: IV, ONCE, Dosing Weight 79.545, kg, Priority: STAT, Start date: 10/13 10:01:00 DATABASE MANAGER, Stop date: 06/01/17 10:01:00 DATABASE MANAGER Start Date: 06/01/17 Stop Date: 06/01/17 Status: Completed morphine Sulfate 4 mg, 2 mL, Route: IVP, Drug form: SOLN, ONCE, Dosing Weight 79.545, kg, Priorit y: STAT, Start date: 06/01/17 10:01:00 DATABASE MANAGER, Stop date: 06/01/17 10:01:00 DATABASE MANAGER Start Date: 06/01/17 Stop Date: 06/01/17 Status: Completed NS (Bolus) IV 500 mL, 500 ml/hr, Infuse Over: 1 hr, Route: IV, ONCE, Priority: STAT, Dosing We ight 79.545 kg, Start date: 06/01/17 10:01:00 DATABASE MANAGER, Stop date: 06/01/17 10:01:00 DATABASE MANAGER Start Date: 06/01/17 Stop Date: 06/01/17 Status: Completed pantoprazole 40 mg, 1 tab, Route: PO, Drug form: ECTAB, BID-Before Meals, Dosing Weight 73.54 5, kg, Start date: 06/02/17 16:30:00 DATABASE MANAGER, Duration: 30 day, Stop date: 07/02/17 7:30:00 DATABASE MANAGER Notes: Tablet should not be chewed or crushed.(Same as: Protonix) Start Date: 06/02/17 Stop Date: 06/02/17 Status: Discontinued pneumococcal 13-valent vaccine 0.5 mL, Route: IM, Drug Form: INJ, Daily, Start date: 06/02/17 9:00:00 DATABASE MANAGER, Dura tion: 1 doses or times, Stop date: 06/02/17 9:00:00 DATABASE MANAGER Notes: Shake well prior to use (Same as: Prevnar 13) Start Date: 06/02/17 Stop Date: 06/02/17 Status: Completed potassium chloride 40 mEq, 2 tab, Route: PO, Drug form: ERTAB, Q4H, Dosing Weight 73.545, kg, Prior ity: NOW, Start date: 06/01/17 18:07:00 DATABASE MANAGER, Duration: 2 doses or times, Stop da te: 06/01/17 22:00:00 DATABASE MANAGER Notes: (Same as: K-Dur 20)"Do Not Crush" With food and full glass of water Start Date: 06/01/17 Stop Date: 06/01/17 Status: Completed pravastatin 40 mg, 2 tab, Route: PO, Drug form: TAB, Bedtime, Dosing Weight 73.545, kg, Star t date: 06/02/17 21:00:00 DATABASE MANAGER, Duration: 30 day, Stop date: 07/01/17 21:00:00 CS T Notes: (Same as: Pravachol) Start Date: 06/02/17 Stop Date: 06/02/17 Status: Canceled ranitidine 150 mg oral tablet 150 mg, 1 tab, Route: PO, Drug form: TAB, BID, Dosing Weight 73.545, kg, Start d ate: 06/02/17 17:00:00 DATABASE MANAGER, Duration: 30 day, Stop date: 07/02/17 9:00:00 DATABASE MANAGER Start Date: 06/02/17 Stop Date: 06/02/17 Status: Deleted remove patch Route: MISC, Bedtime, Drug form: ERFILM, Start date: 06/02/17 21:00:00 DATABASE MANAGER, Dura tion: 30 day, Stop date: 07/01/17 21:00:00 DATABASE MANAGER Notes: Remove patch 12 hours after application each day. Start Date: 06/02/17 Stop Date: 06/02/17 Status: Canceled Rocephin + sterile water 10 mL 1 gm, Route: IVPB, ONCE, Dosing Weight 73.545, kg, Start date: 06/02/17 10:31:00 DATABASE MANAGER, Stop date: 06/02/17 10:31:00 DATABASE MANAGER, ABX Indication: Pneumonia Notes: (Same As: Rocephin).Use with 100 mL NS and infuse over 30 min MEDICA TION WASTE Product Size: 1000 mgProduct Wasted: ___ mg Start Date: 06/02/17 Stop Date: 06/02/17 Status: Completed Saline Flush 0.9% 10 mL, Route: IVP, Drug Form: INJ, Dosing Weight 79.545, kg, PRN, PRN Line Flush , Start date: 06/01/17 10:05:00 DATABASE MANAGER, Duration: 30 day, Stop date: 07/01/17 10:04 :00 DATABASE MANAGER Notes: (Same as: BD Posiflush) Start Date: 06/01/17 Stop Date: 06/02/17 Status: Discontinued Saline Flush 0.9% 5 ml, Route: IVP, Drug Form: INJ, Dosing Weight 73.545, kg, PRN, PRN Line Flush, Start date: 06/01/17 20:01:00 DATABASE MANAGER, Duration: 30 day, Stop date: 07/01/17 20:00: 00 DATABASE MANAGER Notes: (Same as: BD Posiflush) Start Date: 06/01/17 Stop Date: 06/02/17 Status: Discontinued Solu-MEDROL 125 mg, Route: IVP, ONCE, Dosing Weight 79.545, kg, Priority: STAT, Start date: 06/01/17 10:00:00 DATABASE MANAGER, Stop date: 06/01/17 10:00:00 DATABASE MANAGER Start Date: 06/01/17 Stop Date: 06/01/17 Status: Completed Spiriva 18 mcg inhalation capsule 18 microgram, 1 inhalation, Route: INHALATION, Drug form: CAP, RDaily, Dosing We ight 73.545, kg, Start date: 06/03/17 8:00:00 DATABASE MANAGER, Duration: 30 day, Stop date: 07/02/17 8:00:00 DATABASE MANAGER Notes: (Same As: Spiriva). Start Date: 06/03/17 Stop Date: 06/02/17 Status: Canceled tizanidine 2 mg, 0.5 tab, Route: PO, Drug form: TAB, Q8H, Dosing Weight 73.545, kg, PRN Spa sm, Start date: 06/02/17 9:38:00 DATABASE MANAGER, Duration: 30 day, Stop date: 07/02/17 9:37 :00 DATABASE MANAGER, .. Notes: (Same As: Zanaflex) Start Date: 06/02/17 Stop Date: 06/02/17 Status: Discontinued Zofran 4 mg, Route: IVP, Drug form: INJ, ONCE, Dosing Weight 79.545, kg, Priority: STAT , Start date: 06/01/17 10:01:00 DATABASE MANAGER, Stop date: 06/01/17 10:01:00 DATABASE MANAGER Start Date: 06/01/17 Stop Date: 12/4/17 Status: Completed Results ELECTROLYTES Most recent to 1 2 oldest [Reference Range]: Sodium Lvl [135-145 141 mEq/L 137 mEq/L mEq/L] (06/02/17 6:02 AM) (06/01/17 10:56 AM) Potassium Lvl 4.9 mEq/L 3.5 mEq/L [3.5-5.1 mEq/L] (06/02/17 6:02 AM) (06/01/17 10:56 AM) Chloride Lvl [95-109 104 mEq/L 101 mEq/L mEq/L] (06/02/17 6:02 AM) (06/01/17 10:56 AM) CO2 [24-32 mEq/L] 26 mEq/L 27 mEq/L (06/02/17 6:02 AM) (06/01/17 10:56 AM) AGAP [10.0-20.0 15.9 mEq/L 12.5 mEq/L mEq/L] (06/02/17 6:02 AM) (06/01/17 10:56 AM) CHEM PANEL Most recent to 1 2 oldest [Reference Range]: Creatinine Lvl 0.90 mg/dL 1.36 mg/dL [0.50-1.40 mg/dL] (06/02/17 6:02 AM) (06/01/17 10:56 AM) eGFR 83 mL/min/1.73m2 1 51 mL/min/1.73m2 2 *NA* *NA* (06/02/17 6:02 AM) (06/01/17 10:56 AM) BUN [7-22 mg/dL] 22 mg/dL 23 mg/dL (06/02/17 6:02 AM) *HI* (06/01/17 10:56 AM) B/C Ratio [6-25] 24 17 (06/02/17 6:02 AM) (06/01/17 10:56 AM) Glucose Lvl [70-99 108 mg/dL 118 mg/dL mg/dL] *HI* *HI* (06/02/17 6:02 AM) (06/01/17 10:56 AM) Total Protein 6.6 g/dL 6.8 g/dL [6.4-8.4 g/dL] (06/02/17 6:02 AM) (06/01/17 10:56 AM) Albumin Lvl [3.5-5.0 3.3 g/dL 3.3 g/dL g/dL] *LOW* *LOW* (06/02/17 6:02 AM) (06/01/17 10:56 AM) Globulin [2.7-4.2 3.3 g/dL 3.5 g/dL g/dL] (06/02/17 6:02 AM) (06/01/17 10:56 AM) A/G Ratio [0.7-1.6] 1.0 0.9 (06/02/17 6:02 AM) (06/01/17 10:56 AM) Calcium Lvl 8.6 mg/dL 8.4 mg/dL [8.5-10.5 mg/dL] (06/02/17 6:02 AM) *LOW* (06/01/17 10:56 AM) ALT [0-65 unit/L] 21 unit/L 18 unit/L (06/02/17 6:02 AM) (06/01/17 10:56 AM) AST [0-37 unit/L] 13 unit/L 13 unit/L (06/02/17 6:02 AM) (06/01/17 10:56 AM) Alk Phos [39-136 87 unit/L 87 unit/L unit/L] (06/02/17 6:02 AM) (06/01/17 10:56 AM) Bili Total [0.2-1.3 0.5 mg/dL 0.4 mg/dL mg/dL] (06/02/17 6:02 AM) (06/01/17 10:56 AM) Lactic Acid Lvl 1.2 mMol/L 1.9 mMol/L [0.5-2.2 mMol/L] (06/01/17 1:46 PM) (06/01/17 10:56 AM) 1Result Comment: The eGFR is calculated using [...] be mul tiplied by the estimated BMI. CARDIAC ENZYMES Most recent to 1 oldest [Reference Range]: Total CK [12-191 96 unit/L unit/L] (06/01/17 10:56 AM) CK MB [0.5-3.6 3.4 ng/mL ng/mL] (06/01/17 10:56 AM) CK MB Index 3.5 [0.0-2.5] *HI* (06/01/17 10:56 AM) Troponin-I 0.03 ng/mL [0.00-0.40 ng/mL] (06/01/17 10:56 AM) BNP [<=100 pg/mL] 488 pg/mL *HI* (06/01/17 10:56 AM) ANEMIA STUDY Most recent to 1 oldest [Reference Range]: Vitamin B12 Lvl 456 pg/mL [254-1320 pg/mL] (06/02/17 6:02 AM) DRUG SCREEN Most recent to 1 2 oldest [Reference Range]: U Methadone Scr Negative [Negative] *NA* (06/02/17 8:00 AM) U Propoxyph Scr Negative [Negative] *NA* (06/02/17 8:00 AM) U Amph Scr Negative [Negative] *NA* (06/02/17 8:00 AM) U Danae Scr Negative [Negative] *NA* (06/02/17 8:00 AM) U Benzodia Scr Negative [Negative] *NA* (06/02/17 8:00 AM) U Cocaine Scr Negative [Negative] *NA* (06/02/17 8:00 AM) U Opiate Scr Positive [Negative] *ABN* (06/02/17 8:00 AM) U Phencyc Scr Negative [Negative] *NA* (06/02/17 8:00 AM) U Cannab Scr Negative [Negative] *NA* (06/02/17 8:00 AM) UDS Note See Note (06/02/17 8:00 AM) URINE AND STOOL Most recent to 1 2 oldest [Reference Range]: UA Turbidity [Clear] Clear (06/02/17 8:00 AM) UA Color [Yellow] Yellow *NA* (06/02/17 8:00 AM) UA pH [5.0-8.0] 6.0 (06/02/17 8:00 AM) UA Spec Grav 1.020 [<=1.030] (06/02/17 8:00 AM) UA Glucose Negative [Negative] (06/02/17 8:00 AM) UA Blood [Negative] Negative (06/02/17 8:00 AM) UA Ketones Negative [Negative] *NA* (06/02/17 8:00 AM) UA Protein Negative [Negative] (06/02/17 8:00 AM) UA Urobilinogen 1.0 EU/dL [0.1-1.0 EU/dL] (06/02/17 8:00 AM) UA Bili [Negative] Negative *NA* (06/02/17 8:00 AM) UA Leuk Est Negative [Negative] (06/02/17 8:00 AM) UA Nitrite Negative [Negative] (06/02/17 8:00 AM) UA WBC [0-5 /HPF] <1 /HPF (06/02/17 8:00 AM) UA RBC [0-2 /HPF] 3 /HPF *HI* (06/02/17 8:00 AM) UA Bacteria [None Occasional /HPF Seen /HPF] *NA* (06/02/17 8:00 AM) UA Sq Epi [Few] None Seen (06/02/17 8:00 AM) UA Amorph [place] [None Occasional /HPF Seen /HPF] *NA* (06/02/17 8:00 AM) UA Mucus [None Seen Few /LPF /LPF] *NA* (06/02/17 8:00 AM) HEMATOLOGY Most recent to 1 2 oldest [Reference Range]: WBC [3.7-10.4 K/CMM] 14.2 K/CMM 13.1 K/CMM *HI* *HI* (06/02/17 6:02 AM) (06/01/17 10:56 AM) RBC [4.70-6.10 4.39 M/CMM 4.72 M/CMM M/CMM] *LOW* (06/01/17 10:56 AM) (06/02/17 6:02 AM) Hgb [14.0-18.0 g/dL] 12.8 g/dL 13.5 g/dL *LOW* *LOW* (06/02/17 6:02 AM) (06/01/17 10:56 AM) Hct [42.0-54.0 %] 38.3 % 40.7 % *LOW* *LOW* (06/02/17 6:02 AM) (06/01/17 10:56 AM) MCV [80.0-94.0 fL] 87.1 fL 86.3 fL (06/02/17 6:02 AM) (06/01/17 10:56 AM) MCH [27.0-31.0 pg] 29.2 pg 28.6 pg (06/02/17 6:02 AM) (06/01/17 10:56 AM) MCHC [32.0-36.0 33.5 g/dL 33.2 g/dL g/dL] (06/02/17 6:02 AM) (06/01/17 10:56 AM) RDW [11.5-14.5 %] 15.6 % 15.6 % *HI* *HI* (06/02/17 6:02 AM) (06/01/17 10:56 AM) Platelet [133-450 257 K/CMM 263 K/CMM K/CMM] (06/02/17 6:02 AM) (06/01/17 10:56 AM) MPV [7.4-10.4 fL] 9.1 fL 8.6 fL (06/02/17 6:02 AM) (06/01/17 10:56 AM) Segs [45.0-75.0 %] 83.2 % 70.9 % *HI* (06/01/17 10:56 AM) (06/02/17 6:02 AM) Lymphocytes 10.7 % 18.3 % [20.0-40.0 %] *LOW* *LOW* (06/02/17 6:02 AM) (06/01/17 10:56 AM) Monocytes [2.0-12.0 5.9 % 7.8 % %] (06/02/17 6:02 AM) (06/01/17 10:56 AM) Eosinophils [0.0-4.0 2.7 % %] (06/01/17 10:56 AM) Basophils [0.0-1.0 0.2 % 0.3 % %] (06/02/17 6:02 AM) (06/01/17 10:56 AM) Segs-Bands # 11.8 K/CMM 9.3 K/CMM [1.5-8.1 K/CMM] *HI* *HI* (06/02/17 6:02 AM) (06/01/17 10:56 AM) Lymphocytes # 1.5 K/CMM 2.4 K/CMM [1.0-5.5 K/CMM] (06/02/17 6:02 AM) (06/01/17 10:56 AM) Monocytes # [0.0-0.8 0.8 K/CMM 1.0 K/CMM K/CMM] (06/02/17 6:02 AM) *HI* (06/01/17 10:56 AM) Eosinophils # 0.3 K/CMM [0.0-0.5 K/CMM] (06/01/17 10:56 AM) Immunizations Given and Recorded Vaccine Date Status Refusal Reason pneumococcal 13-valent vaccine 06/02/17 Given influenza virus vaccine, inactivated1 04/28/17 Given influenza virus vaccine, inactivated 03/17/16 Given influenza virus vaccine, inactivated2 04/24/14 Given Hx influenza vaccine-unspecified3 04/24/14 Given pneumococcal 23-valent vaccine4 11/11/13 Given 1Result Comment: Patient waited 15 min with no reaction. 2Result Comment: fluzone high dose [[id number]]. Migrated from OBS ; Data migrated from [employer] on 07/31/2015. 3Result Comment: done high dose. Migrated from OBS ; Data migrated from [employer] on 07/31/2015. 4Result Comment: pneumovax 23 [[id number]]. Migrated from OBS VIS: Pneumovax 23: 04/03/09 ; Data migrated from [employer] on 07/31/2015. Procedures Procedure Date Related Diagnosis [...]
--- OUTSIDE RECORDS SUMMARY | 2018-09-22 05:59 | XMS REPORT | Summary of Care ---
Author Author [facility] Organization [facility] Address Unknown Phone Unavailable Encounter HQ Eileen(FIN) [id number] Date(s): 10/06/17 - 10/06/17 [facility] [address], [address] [place] [address]- [phone] Discharge Disposition: Home or Self Care Attending [...] rmed)7 Orthostatic 11/03/14 Active hypotension(Confirme d)8, 9 [id number] 03/02/13 Active Encounter for Active immunization(Confirm ed) Prediabetes(Confirme Active d) S/P PTCA Active (percutaneous transluminal coronary angioplasty)(Confirm ed) Screening for Active prostate cancer(Confirmed) Seborrheic Active dermatitis(Confirmed ) Sick sinus Active [id number] Subcortical Active hemorrhage(Confirmed ) Easy Active fatigability(Confirm [...] Daily, # 90 tab, 1 Refill(s), Pharmacy: [id number] Start Date: 10/06/17 Stop Date: [...] completely, # 120 mL, 1 Refill(s), Pharmacy: [id number] Start Date: 10/06/17 Stop Date: 10/06/18 Status: Ordered nystatin topical 100,000 units/g powder 1 appl, TOP, TID, # 60 gm, 1 Refill(s), Pharmacy: [id number] Start Date: 10/06/17 Stop Date: 10/06/18 Status: [...] no reaction. 2Result Comment: fluzone high dose [[id number]]. Migrated from OBS ; Data migrated from [employer] on 07/31/2015. 3Result Comment: done high dose. Migrated from OBS ; Data migrated from [employer] on 07/31/2015. 4Result Comment: pneumovax 23 [[id number]]. Migrated from OBS VIS: Pneumovax 23: 04/03/09 ; Data migrated from [employer] on 07/31/2015. Procedures Procedure Date Related Diagnosis Body Site Status Pneumococcal vaccination1 06/02/17 Completed Influenza vaccination 04/28/17 Completed Angioplasty of carotid artery2 11/17/16 Completed Pneumococcal vaccination3 11/11/13 Completed Bilateral replacement of knee joints Completed Implantation of cardiac pacemaker Completed Insertion of chest tube4 Completed PTCA - Percutaneous transluminal coronary Completed angioplasty Surgical procedure on cervical spine Completed 1Pre 2PREOPERATIVE DIAGNOSIS: Recurrent right carotid artery stenosis. POSTOPERATIVE DIAGNOSIS: Recurrent right carotid artery stenosis. OPERATION: Redo right carotid endarterectomy with bovine pericardial patch angioplasty, com pletion of the ultrasound exam. 3Pneumovax 4due to pleural effusion Social History Social History [...]
--- OUTSIDE RECORDS SUMMARY | 2018-09-22 05:59 | XMS REPORT | Summary of Care ---
Author Author [facility] Organization [facility] Address Unknown Phone Unavailable Encounter HQ Alntr_karon(FIN) [id number] Date(s): 11/10/17 - 11/11/17 [facility] [address], [address] [place] [address]- [phone] Vital Signs No data available for this [...] rmed)7 Orthostatic 11/03/14 Active hypotension(Confirme d)8, 9 [id number] 03/02/13 Active Encounter for Active immunization(Confirm ed) Prediabetes(Confirme Active d) S/P PTCA Active (percutaneous transluminal coronary angioplasty)(Confirm ed) Screening for Active prostate cancer(Confirmed) Seborrheic Active dermatitis(Confirmed ) Sick sinus Active [id number] Subcortical Active hemorrhage(Confirmed ) Easy Active fatigability(Confirm [...] no reaction. 2Result Comment: fluzone high dose [[id number]]. Migrated from OBS ; Data migrated from [...]
--- OUTSIDE RECORDS SUMMARY | 2018-09-22 05:59 | XMS REPORT | Summary of Care ---
Author Author [facility] Organization [facility] Address Unknown Phone Unavailable Encounter HQ Alntr_karon(FIN) [id number] Date(s): 11/17/17 - 11/18/17 [facility] [address], [address] [place] [address]- [phone] Vital Signs No data available for this [...] rmed)7 Orthostatic 11/03/14 Active hypotension(Confirme d)8, 9 [id number] 03/02/13 Active Encounter for Active immunization(Confirm ed) Prediabetes(Confirme Active d) S/P PTCA Active (percutaneous transluminal coronary angioplasty)(Confirm ed) Screening for Active prostate cancer(Confirmed) Seborrheic Active dermatitis(Confirmed ) Sick sinus Active oxstogni17 Subcortical Active hemorrhage(Confirmed ) Easy Active fatigability(Confirm [...] no reaction. 2Result Comment: fluzone high dose [[id number]]. Migrated from OBS ; Data migrated from [...]
--- OUTSIDE RECORDS SUMMARY | 2018-09-22 05:59 | XMS REPORT | Summary of Care ---
Author Author [facility] Organization [facility] Address Unknown Phone Unavailable Encounter HQ Alntr_karon(FIN) [id number] Date(s): 01/09/18 - 01/10/18 [facility] [address], [address] [place] [address]- [phone] Vital Signs No data available for this [...] rmed)7 Orthostatic 11/03/14 Active hypotension(Confirme d)8, 9 [id number] 03/02/13 Active Encounter for Active immunization(Confirm ed) Prediabetes(Confirme Active d) S/P PTCA Active (percutaneous transluminal coronary angioplasty)(Confirm ed) Screening for Active prostate cancer(Confirmed) Seborrheic Active dermatitis(Confirmed ) Sick sinus Active [id number] Subcortical Active hemorrhage(Confirmed ) Easy Active fatigability(Confirm [...] Substance Reaction Severity Status NKDA Active Medications Spiriva 18 mcg inhalation capsule 18 microgram=1 cap, INHALATION, Daily, # 90 cap, 2 Refill(s), Pharmacy: [facility] [id number] Start Date: 01/09/18 Stop Date: 10/06/18 Status: Ordered Spiriva 18 mcg inhalation capsule 18 microgram=1 cap, INHALATION, Daily, X 90 day, # 90 cap, 2 Refill(s), Pharmacy : [facility] [id number] Start Date: 01/09/18 Stop Date: 01/09/18 Status: Completed Results No data available for this section Immunizations Given and Recorded Vaccine Date Status Refusal Reason pneumococcal 13-valent vaccine 06/02/17 Given influenza virus vaccine, inactivated1 04/28/17 Given influenza virus vaccine, inactivated 03/17/16 Given influenza virus vaccine, inactivated2 04/24/14 Given Hx influenza vaccine-unspecified3 04/24/14 Given pneumococcal 23-valent vaccine4 11/11/13 Given 1Result Comment: Patient waited 15 min with no reaction. 2Result Comment: fluzone high dose [[id number]]. Migrated from OBS ; Data migrated from [...] angioplasty Surgical procedure on cervical spine Completed 1P 2PREOPERATIVE DIAGNOSIS: Recurrent right carotid artery stenosis. [...]
--- OUTSIDE RECORDS SUMMARY | 2018-09-22 05:59 | XMS REPORT | Summary of Care ---
Author Author [facility] Organization [facility] Address Unknown Phone Unavailable Encounter HQ Alntr_karon(FIN) [id number] Date(s): 01/11/18 - 01/12/18 [facility] [address], [address] [place] [address]- [phone] Vital Signs No data available for this [...] rmed)7 Orthostatic 11/03/14 Active hypotension(Confirme d)8, 9 Wluuurbyofsdys50 03/02/13 Active Encounter for Active immunization(Confirm ed) Prediabetes(Confirme Active d) S/P PTCA Active (percutaneous transluminal coronary angioplasty)(Confirm ed) Screening for Active prostate cancer(Confirmed) Seborrheic Active dermatitis(Confirmed ) Left shoulder Active pain(Confirmed) Sick sinus Active syndrome(Confirmed)1 1 Subcortical Resolved hemorrhage(Confirmed ) Tinnitus(Confirmed) Active Easy Active fatigability(Confirm ed) Unsteady Active gait(Confirmed) UGIB (upper Active gastrointestinal bleed)(Confirmed) Blood vessel Active disorder(Confirmed) Vertigo(Confirmed) [...] for anxiety, # 40 tab, 0 Refill(s) Start Date: 01/12/18 Stop Date: 04/12/18 Status: Completed Results No data available for [...] no reaction. 3Result Comment: fluzone high dose [cmw255]. Migrated from OBS ; Data migrated from [...] 17.0; Stopped at age: 64; entered on: 05/05/18 Assessment and Plan No data available for this section
--- OUTSIDE RECORDS SUMMARY | 2018-09-22 05:59 | XMS REPORT | Summary of Care ---
Author Author [facility] Organization [facility] Address Unknown Phone Unavailable Encounter HQ Encntr_karon(FIN) [id number] Date(s): 07/29/17 - 07/29/17 [facility] [address], [address] [place] [address]- [phone] Attending Physician: Yesenia Solano MD Vital Signs No data available for this [...] rmed)7 Orthostatic 11/03/14 Active hypotension(Confirme d)8, 9 Picobehveplyzs76 03/02/13 Active Encounter for Active immunization(Confirm ed) Prediabetes(Confirme Active d) S/P PTCA Active (percutaneous transluminal coronary angioplasty)(Confirm ed) Screening for Active prostate cancer(Confirmed) Seborrheic Active dermatitis(Confirmed ) Sick sinus Active nknynafk55 Subcortical Active hemorrhage(Confirmed ) Easy Active fatigability(Confirm [...] no reaction. 2Result Comment: fluzone high dose [[id number]]. Migrated from OBS ; Data migrated from [...]
--- OUTSIDE RECORDS SUMMARY | 2018-09-22 05:59 | XMS REPORT | Summary of Care ---
Author Author [facility] Organization [facility] Address Unknown Phone Unavailable Encounter HQ Encntr_alikristin(FIN) [id number] Date(s): 01/16/18 - 01/17/18 [facility] [address], [address] [place] [address]- [phone] Vital Signs No data available for this [...] rmed)7 Orthostatic 11/03/14 Active hypotension(Confirme d)8, 9 Qlqbvcaxnlihlh09 03/02/13 Active Encounter for Active immunization(Confirm ed) Prediabetes(Confirme Active d) S/P PTCA Active (percutaneous transluminal coronary angioplasty)(Confirm ed) Screening for Active prostate cancer(Confirmed) Seborrheic Active dermatitis(Confirmed ) Sick sinus Active syndrome(Confirmed)1 1 Subcortical Resolved hemorrhage(Confirmed ) Tinnitus(Confirmed) Active Easy Active fatigability(Confirm ed) Vertigo(Confirmed) Active 1Data migrated from [employer] on 11/25/14. 2Data migrated from [employer] on 11/25/14. 3Data migrated from [employer] [...] no reaction. 2Result Comment: fluzone high dose [cfz035]. Migrated from OBS ; Data migrated from [employer] on 07/31/2015. 3Result Comment: done high dose. Migrated from OBS ; Data migrated from [employer] on 07/31/2015. 4Result Comment: pneumovax 23 [cvx33]. Migrated from OBS VIS: Pneumovax 23: 04/03/09 ; Data migrated from [employer] on 07/31/2015. Procedures Procedure Date Related Diagnosis Body Site Status Cardiac catheterization 09/2017 Completed Pneumococcal vaccination1 06/02/17 Completed Influenza vaccination 04/28/17 Completed Angioplasty of carotid artery2 11/17/16 Completed Pneumococcal vaccination3 11/11/13 Completed Bilateral replacement of knee joints Completed Implantation of cardiac pacemaker Completed Insertion of chest tube4 Completed PTCA - Percutaneous transluminal coronary Completed angioplasty Surgical procedure on cervical spine Completed 1Prev-13 2PREOPERATIVE DIAGNOSIS: Recurrent right carotid artery stenosis. [...] 17.0; Stopped at age: 64; entered on: 01/14/18 Assessment and Plan No data available for this section
--- OUTSIDE RECORDS SUMMARY | 2018-09-22 05:59 | XMS REPORT | Summary of Care ---
Author Author [facility] Organization [facility] Address Unknown Phone Unavailable Encounter HQ Alntr_karon(FIN) [id number] Date(s): 10/30/17 - 10/31/17 [facility] [address], [address] [place] [address]- [phone] Vital Signs No data available for this [...] rmed)7 Orthostatic 11/03/14 Active hypotension(Confirme d)8, 9 Adwsyotjjsbicd15 03/02/13 Active Encounter for Active immunization(Confirm ed) Prediabetes(Confirme Active d) S/P PTCA Active (percutaneous transluminal coronary angioplasty)(Confirm ed) Screening for Active prostate cancer(Confirmed) Seborrheic Active dermatitis(Confirmed ) Sick sinus Active sxvcubir32 Subcortical Active hemorrhage(Confirmed ) Easy Active fatigability(Confirm [...] Substance Reaction Severity Status NKDA Active Medications Metoprolol Tartrate 50 mg oral tablet 50 mg=1 tab, PO, BID, # 180 tab, 2 Refill(s), Pharmacy: [id number] Start Date: 10/30/17 Stop Date: 01/27/18 Status: Ordered Results No data available for [...] no reaction. 2Result Comment: fluzone high dose [pbx726]. Migrated from OBS ; Data migrated from [...] angioplasty Surgical procedure on cervical spine Completed 1Prev 2PREOPERATIVE DIAGNOSIS: Recurrent right carotid artery stenosis. [...]
--- OUTSIDE RECORDS SUMMARY | 2018-09-22 05:59 | XMS REPORT | Summary of Care ---
Author Author [facility] Organization [facility] Address Unknown Phone Unavailable Encounter HQ Alntr_alikristin(FIN) [id number] Date(s): 09/30/17 - 10/01/17 [facility] [address], [address] [place] [address]- [phone] Vital Signs No data available for this [...] rmed)7 Orthostatic 11/03/14 Active hypotension(Confirme d)8, 9 Uuaherscapxubu54 03/02/13 Active Encounter for Active immunization(Confirm ed) [...] Substance Reaction Severity Status NKDA Active Medications clopidogrel 75 mg oral tablet 75 mg=1 tab, PO, Daily, # 90 tab, 1 Refill(s), Pharmacy: [facility] Start Date: 09/30/17 Stop Date: 12/28/17 Status: Ordered furosemide 20 mg oral tablet 20 mg=1 tab, PO, Daily, # 90 tab, 1 Refill(s), Pharmacy: [facility] Start Date: 09/30/17 Stop Date: 12/28/17 Status: Ordered Results No data available for [...] no reaction. 2Result Comment: fluzone high dose [nqi853]. Migrated from OBS ; Data migrated from [...]
--- OUTSIDE RECORDS SUMMARY | 2018-09-22 05:59 | XMS REPORT | Summary of Care ---
Author Author [facility] Organization [facility] Address Unknown Phone Unavailable Encounter HQ Torri_karon(FIN) [id number] Date(s): 09/18/17 - 09/18/17 [facility] [address], [address] [place] [address]- [phone] Discharge Disposition: Home or Self Care Attending Physician: Deanna Smith MD Vital Signs Most recent to 1 oldest [Reference Range]: Height 172.72 cm (09/18/17 2:34 PM) Temperature Oral 97.0 DegF [96.4-99.1 DegF] (09/18/17 2:34 PM) Blood Pressure 120/65 mmHg [90-140/60-90 mmHg] (09/18/17 2:34 PM) Respiratory Rate 14 BRMIN [14-20 BRMIN] (09/18/17 2:34 PM) Peripheral Pulse 63 bpm Rate [60-100 bpm] (09/18/17 2:34 PM) Weight 71.364 kg (09/18/17 2:34 PM) Body Mass Index 23.92 m2 (09/18/17 2:34 PM) Problem List Condition Effective Dates Status [...] rmed)7 Orthostatic 11/03/14 Active hypotension(Confirme d)8, 9 Hrwsfzuzebjvey58 03/02/13 Active Encounter for Active immunization(Confirm ed) Prediabetes(Confirme Active d) S/P PTCA Active (percutaneous transluminal coronary angioplasty)(Confirm ed) Screening for Active prostate cancer(Confirmed) Seborrheic Active dermatitis(Confirmed ) Sick sinus Active zfsepzhw23 Subcortical Active hemorrhage(Confirmed ) Easy Active fatigability(Confirm [...] Reaction Severity Status NKDA Active Medications No Known Medications Results No data available for this section Immunizations Given and Recorded Vaccine Date Status Refusal Reason pneumococcal 13-valent vaccine 06/02/17 Given influenza virus vaccine, inactivated1 04/28/17 Given influenza virus vaccine, inactivated 03/17/16 Given influenza virus vaccine, inactivated2 04/24/14 Given Hx influenza vaccine-unspecified3 04/24/14 Given pneumococcal 23-valent vaccine4 11/11/13 Given 1Result Comment: Patient waited 15 min with no reaction. 2Result Comment: fluzone high dose [[id number]]. Migrated from OBS ; Data migrated from [employer] on 07/31/2015. 3Result Comment: done high dose. Migrated from OBS ; Data migrated from [employer] on 07/31/2015. 4Result Comment: pneumovax 23 [cvx33]. Migrated from OBS VIS: Pneumovax 23: 10/06/09 ; Data migrated from [employer] on 07/31/2015. Procedures Procedure Date Related Diagnosis Body Site Status Pneumococcal vaccination1 06/02/17 Completed Influenza vaccination 04/28/17 Completed Angioplasty of carotid artery2 11/17/16 Completed Pneumococcal vaccination3 11/11/13 Completed Bilateral replacement of knee joints Completed Implantation of cardiac pacemaker Completed Insertion of chest tube4 Completed PTCA - Percutaneous transluminal coronary Completed angioplasty Surgical procedure on cervical spine Completed 1Prevnar-13 2PREOPERATIVE DIAGNOSIS: Recurrent right carotid artery stenosis. [...]
--- OUTSIDE RECORDS SUMMARY | 2018-09-22 05:59 | XMS REPORT | Summary of Care ---
Author Author [facility] Organization [facility] Address Unknown Phone Unavailable Encounter HQ Torri_karon(FIN) [id number] Date(s): 07/29/17 - 07/29/17 [facility] [address], [address] [place] [address]- [phone] Attending Physician: Yesenia Solano MD Vital Signs [...] rmed)7 Orthostatic 11/03/14 Active hypotension(Confirme d)8, 9 Kugsrnvreagpkc98 03/02/13 Active Encounter for Active immunization(Confirm ed) Prediabetes(Confirme Active d) S/P PTCA Active (percutaneous transluminal coronary angioplasty)(Confirm ed) Screening for Active prostate cancer(Confirmed) Seborrheic Active dermatitis(Confirmed ) Sick sinus Active ucgnjkzf01 Subcortical Active hemorrhage(Confirmed ) Easy Active fatigability(Confirm [...] no reaction. 2Result Comment: fluzone high dose [frw115]. Migrated from OBS ; Data migrated from [...]
--- OUTSIDE RECORDS SUMMARY | 2018-09-22 05:59 | XMS REPORT | Summary of Care ---
Author Author [facility] Organization [facility] Address Unknown Phone Unavailable Encounter HQ Alntr_karon(FIN) [id number] Date(s): 01/09/18 - 01/10/18 [facility] [address], [address] [place] [address]- [phone] Vital Signs No data available for this [...] rmed)7 Orthostatic 11/03/14 Active hypotension(Confirme d)8, 9 Uxhrsnestprcid78 03/02/13 Active Encounter for Active immunization(Confirm ed) [...] Daily, # 90 cap, 2 Refill(s), Pharmacy: [id number] Start Date: 01/09/18 Stop Date: 10/06/18 Status: Ordered Spiriva 18 mcg inhalation capsule 18 microgram=1 cap, INHALATION, Daily, X 90 day, # 90 cap, 2 Refill(s), Pharmacy : [id number] Start Date: 01/09/18 Stop Date: 01/09/18 Status: [...] no reaction. 3Result Comment: fluzone high dose [[id number]]. Migrated from OBS ; Data migrated from [employer] on 07/31/2015. 4Result Comment: done high dose. Migrated from OBS ; Data migrated from [employer] on 07/31/2015. 5Result Comment: pneumovax 23 [cvx33]. Migrated from OBS VIS: Pneumovax 23: 04/03/09 ; Data migrated from [employer] on 07/31/2015. Procedures Procedure Date Related Diagnosis [...]
--- OUTSIDE RECORDS SUMMARY | 2018-09-22 05:59 | XMS REPORT | Summary of Care ---
Author Author [facility] Organization [facility] Address Unknown Phone Unavailable Encounter HQ Madanr_karon(FIN) [id number] Date(s): 12/10/17 - 12/11/17 [facility] [address], [address] [place] [address]- [phone] Vital Signs No data available for this [...] rmed)7 Orthostatic 11/03/14 Active hypotension(Confirme d)8, 9 Gltltjonolkeer93 03/02/13 Active Encounter for Active immunization(Confirm ed) [...] # 40 tab, 0 Refill(s) Start Date: 12/11/17 Stop Date: 12/10/18 Status: Ordered Results No data available for [...] no reaction. 2Result Comment: fluzone high dose [[id number]]. Migrated from OBS ; Data migrated from [...] angioplasty Surgical procedure on cervical spine Completed 1Prev- 2PREOPERATIVE DIAGNOSIS: Recurrent right carotid artery stenosis. [...]
--- OUTSIDE RECORDS SUMMARY | 2018-09-22 05:59 | XMS REPORT | Summary of Care ---
Author Author [facility] Organization [facility] Address Unknown Phone Unavailable Encounter HQ Alntr_karon(FIN) [id number] Date(s): 10/20/17 - 10/21/17 [facility] [address], [address] [place] [address]- [phone] Vital Signs No data available for this [...] rmed)7 Orthostatic 11/03/14 Active hypotension(Confirme d)8, 9 Fnvqbklhyaqmqq16 03/02/13 Active Encounter for Active immunization(Confirm ed) Prediabetes(Confirme Active d) S/P PTCA Active (percutaneous transluminal coronary angioplasty)(Confirm ed) Screening for Active prostate cancer(Confirmed) Seborrheic Active dermatitis(Confirmed ) Sick sinus Active icnprpzq42 Subcortical Active hemorrhage(Confirmed ) Easy Active fatigability(Confirm [...] no reaction. 2Result Comment: fluzone high dose [[id number]]. Migrated from OBS ; Data migrated from [...]
--- OUTSIDE RECORDS SUMMARY | 2018-09-22 06:00 | XMS REPORT | Summary of Care ---
Author Author [facility] Organization [facility] Address Unknown Phone Unavailable Encounter HQ Madanr_karon(FIN) [id number] Date(s): 01/14/18 - 01/14/18 [facility] [address], [address] [place] [address]- [phone] Discharge Disposition: Home or Self Care Attending Physician: Yesenia Solano MD Vital Signs Most recent to 1 oldest [Reference Range]: Height 172.72 cm (01/14/18 2:19 PM) Temperature Oral 97.0 DegF [96.4-99.1 DegF] (01/14/18 2:19 PM) Blood Pressure 110/74 mmHg [90-140/60-90 mmHg] (01/14/18 2:19 PM) Respiratory Rate 14 BRMIN [14-20 BRMIN] (01/14/18 2:19 PM) Peripheral Pulse 67 bpm Rate [60-100 bpm] (01/14/18 2:19 PM) Weight 70 kg (01/14/18 2:19 PM) Body Mass Index 23.46 m2 (01/14/18 2:19 PM) Problem List Condition Effective Dates Status [...] rmed)7 Orthostatic 11/03/14 Active hypotension(Confirme d)8, 9 Xopbcfrbkrdxsh51 03/02/13 Active Encounter for Active immunization(Confirm ed) [...] Substance Reaction Severity Status NKDA Active Medications pravastatin 40 mg oral tablet 40 mg=1 tab, PO, Bedtime, # 90 tab, 1 Refill(s), Pharmacy: [id number] Start Date: 01/17/18 Status: Ordered Results No data available for [...] no reaction. 3Result Comment: fluzone high dose [mgt251]. Migrated from OBS ; Data migrated from [employer] on 07/31/2015. 4Result Comment: done high dose. Migrated from OBS ; Data migrated from [employer] on 07/31/2015. 5Result Comment: pneumovax 23 [cvx33]. Migrated from OBS VIS: Pneumovax 23: 04/03/09 ; Data migrated from [employer] on 07/31/2015. Procedures Procedure Date Related Diagnosis [...]
--- OUTSIDE RECORDS SUMMARY | 2018-09-22 06:00 | XMS REPORT | Summary of Care ---
Author Author [facility] Organization [facility] Address Unknown Phone Unavailable Encounter HQ Torri_karon(FIN) [id number] Date(s): 01/16/18 - 01/17/18 [facility] [address], [address] [place] [address]- [phone] Vital Signs No data available for this [...] rmed)7 Orthostatic 11/03/14 Active hypotension(Confirme d)8, 9 Fsgpazywtlrrdp01 03/02/13 Active Encounter for Active immunization(Confirm ed) [...] no reaction. 3Result Comment: fluzone high dose [eet169]. Migrated from OBS ; Data migrated from [...]
--- OUTSIDE RECORDS SUMMARY | 2018-09-22 06:00 | XMS REPORT | Summary of Care ---
Author Author [facility] Organization [facility] Address Unknown Phone Unavailable Encounter HQ Madanr_karon(FIN) [id number] Date(s): 08/10/18 - 08/11/18 [facility] [address], [address] [place] [address]- [phone] Vital Signs No data available for this [...] rmed)7 Orthostatic 11/03/14 Active hypotension(Confirme d)8, 9 Mwnlyityshvukr10 03/02/13 Active Encounter for Active immunization(Confirm ed) [...] no reaction. 3Result Comment: fluzone high dose [rnw997]. Migrated from OBS ; Data migrated from [...]
--- OUTSIDE RECORDS SUMMARY | 2018-09-22 06:00 | XMS REPORT | Summary of Care ---
Author Author [facility] Organization [facility] Address Unknown Phone Unavailable Encounter HQ Torri_karon(FIN) [id number] Date(s): 08/05/18 - 08/05/18 [facility] [address], [address] [place] [address]- [phone] Discharge Disposition: Home or Self Care Attending Physician: Yesenia Solano MD Vital Signs Most recent to 1 oldest [Reference Range]: Height 172.72 cm (08/05/18 2:14 PM) Temperature Oral 97.2 DegF [96.4-99.1 DegF] (08/05/18 2:14 PM) Blood Pressure 159/92 mmHg [90-140/60-90 mmHg] *HI* (08/05/18 2:14 PM) Respiratory Rate 16 BRMIN [14-20 BRMIN] (08/05/18 2:14 PM) Peripheral Pulse 83 bpm Rate [60-100 bpm] (08/05/18 2:14 PM) Weight 65.455 kg (08/05/18 2:14 PM) Body Mass Index 21.94 m2 (08/05/18 2:14 PM) Problem List Condition Effective Dates Status [...] rmed)7 Orthostatic 11/03/14 Active hypotension(Confirme d)8, 9 Fktwylfmpfmvas60 03/02/13 Active Encounter for Active immunization(Confirm ed) [...] Active Medications tizanidine 2 mg oral tablet =1 tab, PO, TID, PRN Muscle Spasms, # 60 tab, 1 Refill(s), Pharmacy: [facility] [id number] Start Date: 08/05/18 Status: Ordered Results No data available for [...] no reaction. 3Result Comment: fluzone high dose [shm026]. Migrated from OBS ; Data migrated from [employer] on 07/31/2015. 4Result Comment: done high dose. Migrated from OBS ; Data migrated from [employer] on 07/31/2015. 5Result Comment: pneumovax 23 [cvx33]. Migrated from OBS VIS: Pneumovax 23: 04/03/09 ; Data migrated from [employer] on 07/31/2015. Procedures Procedure Date Related Diagnosis [...]
--- OUTSIDE RECORDS SUMMARY | 2018-09-22 06:00 | XMS REPORT | Summary of Care ---
Author Organization Unknown Address Unknown Phone Unavailable Encounter HQ Torri_karon(FIN) [id number] Date(s): 04/14/14 - 04/14/14 [facility] [address] [address] - [facility] Discharge Disposition: Home Physician Attending: Phong Albert MD Physician Admitting: Phong Albert MD Physician_Referring: Phong Albert MD Reason for Visit V76.51 Vital Signs 1 2 3 Most recent to oldest [Reference Range]: 172.72 cm (04/10/14 2:15 PM) Height 97.9 DegF (04/10/14 2:15 PM) Temperature Oral [96.4-99.1 DegF] 115 mmHg (04/14/14 10:05 AM) 99 mmHg (04/14/14 9:50 AM) 98 mmHg (04/14/14 9:39 AM) Systolic Blood Pressure [90-140 mmHg] 62 mmHg (04/14/14 10:05 AM) 58 mmHg *LOW* (04/14/14 9:50 AM) 55 mmHg *LOW* (04/14/14 9:39 AM) Diastolic Blood Pressure [60-90 mmHg] 18 BRMIN (04/14/14 10:05 AM) 18 BRMIN (04/14/14 9:50 AM) 18 BRMIN (04/14/14 9:39 AM) Respiratory Rate [14-20 BRMIN] 80 bpm (04/10/14 2:15 PM) Peripheral Pulse Rate [60-100 bpm] 75.909 kg (04/10/14 2:15 PM) Weight 25.45 m2 (04/10/14 2:15 PM) Body Mass Index Problem List Condition Effective Dates Status Health Status Informant Anxiety(Confirmed) Active Arthritis(Confirmed) Active Asthma(Confirmed) Active CAD (coronary artery Active disease)(Confirmed) Depression(Confirmed Active ) Hypertension(Confirm Active ed) Pacemaker(Confirmed) Active Allergies, Adverse Reactions, Alerts Substance Reaction Severity Status NKDA Active Medications acetaminophen-codeine #4 1 tab, PO, Q4H, PRN Pain, 0 Refill(s) Start Date: 04/14/14 Status: Ordered albuterol 90 mcg/inh inhalation aerosol 1 puff, INHALATION, QID, wheezing, # 1 ea, 0 Refill(s) Start Date: 04/10/14 Stop Date: 04/14/14 Status: Discontinued ALPRAZOLam 0 Refill(s) Start Date: 04/10/14 Stop Date: 04/14/14 Status: Discontinued ALPRAZOLam 0.5 mg oral tablet, disintegrating 0.5 mg=1 tab, PO, TID, for anxiety, 0 Refill(s) Start Date: 04/14/14 Status: Ordered aspirin 325 mg tablet 0 Refill(s) Start Date: 04/14/14 Status: Ordered aspirin 81 mg tablet, enteric coated 81 mg=1 tab, PO, Daily, # 0 tab, 0 Refill(s) Start Date: 04/10/14 Stop Date: 04/14/14 Status: Discontinued Bystolic 20 mg oral tablet 0 Refill(s) Start Date: 04/14/14 Status: Ordered Calcium 600 +D oral tablet 0 Refill(s) Start Date: 04/14/14 Status: Ordered Cialis 0 Refill(s) Start Date: 04/10/14 Stop Date: 04/14/14 Status: Discontinued Cialis 5 mg oral tablet 5 mg=1 tab, PO, Daily, for erectile dysfunction, 0 Refill(s) Start Date: 04/14/14 Status: Ordered Combivent inhalation aerosol with adapter 2 puff, INHALER, QID, # 14 gm, 0 Refill(s) Start Date: 04/14/14 Status: Ordered cyclobenzaprine 10 mg oral tablet 0 Refill(s) Start Date: 04/14/14 Status: Ordered Cymbalta 60 mg oral delayed release capsule 60 mg=1 cap, PO, Daily, # 30 cap, 0 Refill(s) Start Date: 04/14/14 Status: Ordered furosemide 20 mg oral tablet 0 Refill(s) Start Date: 04/14/14 Status: Ordered furosemide 40 mg oral tablet 40 mg=1 tab, PO, Daily, # 30 tab, 0 Refill(s) Start Date: 04/10/14 Stop Date: 04/14/14 Status: Discontinued Limbrel 500 mg oral capsule 0 Refill(s) Start Date: 04/14/14 Status: Ordered multivitamin 0 Refill(s) Start Date: 04/14/14 Status: Ordered omega-3 polyunsaturated fatty acids 1000 mg oral capsule 0 Refill(s) Start Date: 04/14/14 Status: Ordered potassium chloride 0 Refill(s) Start Date: 04/10/14 Stop Date: 04/14/14 Status: Discontinued potassium chloride 20 mEq oral tablet, extended release 0 Refill(s) Start Date: 04/14/14 Status: Ordered pravastatin 40 mg oral tablet 40 mg=1 tab, PO, Bedtime, # 30 tab, 0 Refill(s) Start Date: 04/14/14 Status: Ordered ranitidine 150 mg oral capsule 150 mg=1 cap, PO, BID, # 60 cap, 0 Refill(s) Start Date: 04/14/14 Status: Ordered Sodium Chloride 0.9% IV 1,000 mL 1,000 mL, Rate: 25 ml/hr, Infuse over: 40 hr, Route: IV, Dosing Weight 75.909 kg , Total Volume: 1,000, Start date: 04/14/14 7:59:00, Duration: 30 day, Stop date : 05/14/14 7:58:00 Start Date: 04/14/14 Stop Date: 04/14/14 Status: Discontinued tamsulosin 0.4 mg oral capsule 0.4 mg=1 cap, PO, Daily, # 30 cap, 0 Refill(s) Start Date: 04/14/14 Status: Ordered Results ELECTROLYTES Most recent to 1 oldest [Reference Range]: Sodium Lvl [135-145 136 mEq/L mEq/L] (04/10/14 1:55 PM) Potassium Lvl 4.3 mEq/L [3.5-5.1 mEq/L] (04/10/14 1:55 PM) Chloride Lvl [95-109 99 mEq/L mEq/L] (04/10/14 1:55 PM) CO2 [24-32 mEq/L] 31 mEq/L (04/10/14 1:55 PM) AGAP [10.0-20.0 10.3 mEq/L mEq/L] (04/10/14 1:55 PM) HEMATOLOGY Most recent to 1 oldest [Reference Range]: Hgb [14.0-18.0 g/dL] 13.3 g/dL *LOW* (04/10/14 1:55 PM) Hct [42.0-54.0 %] 41.2 % *LOW* (04/10/14 1:55 PM) Medications Administered During Your Visit No data available for this section Immunizations No data available for this section Procedures Procedure Type Body Site Date of Procedure Related Diagnosis Cardiac pacemaker procedure Joint replacement Lumbar discectomy Operation Stent placement1 1x2 Social History Social History Type Response Alcohol Use: Past, Previous treatment: None Smoking Status Former smoker, Exposure to Tobacco Smoke None, Cigarette Smoking Last 365 Days No, Reg Smoking Cessation Counseling No
--- OUTSIDE RECORDS SUMMARY | 2018-09-22 06:00 | XMS REPORT | Summary of Care ---
Author Author [facility] Organization [facility] Address Unknown Phone Unavailable Encounter HQ Torri_karon(FIN) [phone] Date(s): 09/21/15 - 09/21/15 [facility] [address] [place] [address]- Discharge Disposition: Alf Facility Attending Physician: Humberto Maciel MD Vital Signs 1 2 3 Most recent to oldest [Reference Range]: 172.72 cm (09/21/15 1:57 PM) Height 98.2 DegF (09/21/15 7:00 PM) 98.4 DegF (09/21/15 6:41 PM) 98.2 DegF (09/21/15 1:57 PM) Temperature Oral [96.4-99.1 DegF] 156/79 mmHg *HI* (09/21/15 7:00 PM) 163/89 mmHg *HI* (09/21/15 6:41 PM) 195/95 mmHg *HI* (09/21/15 5:58 PM) Blood Pressure [90-140/60-90 mmHg] 20 BRMIN (09/21/15 7:00 PM) 18 BRMIN (09/21/15 6:41 PM) 20 BRMIN (09/21/15 1:57 PM) Respiratory Rate [14-20 BRMIN] 62 bpm (09/21/15 7:00 PM) 59 bpm *LOW* (09/21/15 6:41 PM) 75 bpm (09/21/15 5:58 PM) Peripheral Pulse Rate [60-100 bpm] 81.818 kg (09/21/15 1:57 PM) Weight 27.43 m2 (09/21/15 1:57 PM) Body Mass Index Problem List Condition Effective Dates Status Health Status Informant Acute Active bronchitis(Confirmed ) Anxiety disorder1 03/02/13 Active Asthma(Confirmed) Resolved Benign essential Active hypertension(Confirm ed) 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 CAD (coronary artery Active disease)(Confirmed) Cardiac Resolved pacemaker(Confirmed) Cardiac pacemaker3 04/24/14 Active Chronic back pain4 06/29/59 Active Chronic obstructive 04/24/14 Active lung disease5 COPD(Confirmed) Resolved Depression, Active major(Confirmed) Dizziness6 05/09/14 Active Gastritis(Confirmed) Active Hyperlipidemia7 Active Medicare annual Active wellness visit, subsequent(Confirmed ) Orthostatic 11/03/14 Active hypotension8, 9 [id number] 03/02/13 Active Prediabetes(Confirme Active d) S/P PTCA Active (percutaneous transluminal coronary angioplasty)(Confirm ed) Screening for Active prostate cancer(Confirmed) Sick sinus Active vitpckts58 TIA(Confirmed) Resolved 1Data migrated from [employer] on 11/25/14. [...] Alerts Substance Reaction Severity Status NKDA Active NKDA1 Active 1Data migrated from [employer] on 08/31/15. Originally documented as NKA. Medications labetalol 20 mg, Route: IVP, Drug form: INJ, ONCE, Dosing Weight 81.818, kg, Priority: STA T, Start date: 09/21/15 17:57:00, Stop date: 09/21/15 17:57:00 Start Date: 09/21/15 Stop Date: 09/21/15 Status: Completed [place] 10/325 oral tablet 1 tab, Route: PO, Drug Form: TAB, Dosing Weight 81.818, kg, ONCE, STAT, Start da te: 09/21/15 18:15:00, Stop date: 09/21/15 18:15:00 Notes: Do not exceed 4gm/day of acetaminophen. (Same as: [place] 325/10) Start Date: 09/21/15 Stop Date: 09/21/15 Status: Completed Results ELECTROLYTES Most recent to 1 oldest [Reference Range]: Sodium Lvl [135-145 139 mEq/L mEq/L] (09/21/15 5:54 PM) Potassium Lvl 3.1 mEq/L [3.5-5.1 mEq/L] *LOW* (09/21/15 5:54 PM) Chloride Lvl [95-109 98 mEq/L mEq/L] (09/21/15 5:54 PM) CO2 [24-32 mEq/L] 33 mEq/L *HI* (09/21/15 5:54 PM) AGAP [10.0-20.0 11.1 mEq/L mEq/L] (09/21/15 5:54 PM) CHEM PANEL Most recent to 1 oldest [Reference Range]: Creatinine Lvl 1.29 mg/dL [0.50-1.40 mg/dL] (09/21/15 5:54 PM) eGFR 55 mL/min/1.73m2 1 *NA* (09/21/15 5:54 PM) BUN [7-22 mg/dL] 12 mg/dL (09/21/15 5:54 PM) B/C Ratio [6-25] 9 (09/21/15 5:54 PM) Glucose Lvl [70-99 105 mg/dL mg/dL] *HI* (09/21/15 5:54 PM) Total Protein 7.5 g/dL [6.4-8.4 g/dL] (09/21/15 5:54 PM) Albumin Lvl [3.5-5.0 3.8 g/dL g/dL] (09/21/15 5:54 PM) Globulin [2.0-4.0 3.7 g/dL g/dL] (09/21/15 5:54 PM) A/G Ratio [0.7-1.6] 1.0 (09/21/15 5:54 PM) Calcium Lvl 9.2 mg/dL [8.5-10.5 mg/dL] (09/21/15 5:54 PM) ALT [0-65 unit/L] 24 unit/L (09/21/15 5:54 PM) AST [0-37 unit/L] 20 unit/L (09/21/15 5:54 PM) Alk Phos [39-136 74 unit/L unit/L] (09/21/15 5:54 PM) Bili Total [0.2-1.3 0.4 mg/dL mg/dL] (09/21/15 5:54 PM) 1Result Comment: The eGFR is calculated using [...] Most recent to 1 oldest [Reference Range]: Troponin-I 0.04 ng/mL [0.00-0.40 ng/mL] (09/21/15 5:54 PM) HEMATOLOGY Most recent to 1 oldest [Reference Range]: WBC [3.7-10.4 K/CMM] 9.0 K/CMM (09/21/15 5:54 PM) RBC [4.70-6.10 4.64 M/CMM M/CMM] *LOW* (09/21/15 5:54 PM) Hgb [14.0-18.0 g/dL] 13.3 g/dL *LOW* (09/21/15 5:54 PM) Hct [42.0-54.0 %] 41.2 % *LOW* (09/21/15 5:54 PM) MCV [80.0-94.0 fL] 88.9 fL (09/21/15 5:54 PM) MCH [27.0-31.0 pg] 28.7 pg (09/21/15 5:54 PM) MCHC [32.0-36.0 32.3 g/dL g/dL] (09/21/15 5:54 PM) RDW [11.5-14.5 %] 14.5 % (09/21/15 5:54 PM) Platelet [133-450 255 K/CMM K/CMM] (09/21/15 5:54 PM) MPV [7.4-10.4 fL] 8.4 fL (09/21/15 5:54 PM) Segs [45.0-75.0 %] 69.6 % (09/21/15 5:54 PM) Lymphocytes 20.8 % [20.0-40.0 %] (09/21/15 5:54 PM) Monocytes [2.0-12.0 8.1 % %] (09/21/15 5:54 PM) Eosinophils [0.0-4.0 1.3 % %] (09/21/15 5:54 PM) Basophils [0.0-1.0 0.2 % %] (09/21/15 5:54 PM) Segs-Bands # 6.2 K/CMM [1.5-8.1 K/CMM] (09/21/15 5:54 PM) Lymphocytes # 1.9 K/CMM [1.0-5.5 K/CMM] (09/21/15 5:54 PM) Monocytes # [0.0-0.8 0.7 K/CMM K/CMM] (09/21/15 5:54 PM) Eosinophils # 0.1 K/CMM [0.0-0.5 K/CMM] (09/21/15 5:54 PM) PT [12.0-14.7 13.5 seconds seconds] (09/21/15 5:54 PM) INR [0.85-1.17] 1.00 (09/21/15 5:54 PM) PTT [22.9-35.8 30.0 seconds seconds] (09/21/15 5:54 PM) Immunizations Vaccine Date Refusal Reason Hx influenza vaccine-unspecified1 04/24/14 influenza virus vaccine, inactivated2 04/24/14 pneumococcal 23-valent vaccine3 11/11/13 1Result Comment: done high dose. Migrated from OBS ; Data migrated from [employer] on 07/31/2015. 2Result Comment: fluzone high dose [[id number]]. Migrated from OBS ; Data migrated from [employer] on 07/31/2015. 3Result Comment: pneumovax 23 [[id number]]. Migrated from OBS VIS: Pneumovax 23: 04/03/09 ; Data migrated from [employer] on 07/31/2015. Procedures Procedure Date Related Diagnosis Body Site Bilateral replacement of knee joints Carotid endarterectomy1 Implantation of cardiac pacemaker Insertion of chest tube2 PTCA - Percutaneous transluminal coronary angioplasty Surgical procedure on cervical spine 1Right carotid artery 2due to pleural effusion Social History Social History Type Response Substance Abuse Use: None. Exercise 1 Alcohol Past, Previous treatment: None. Smoking Status Former smoker; Type: Cigarettes; Tobacco use per day: 40; Started at age: 19.0; Stopped at age: 64; Exposure to Tobacco Smoke None; Cigarette Smoking Last 365 Days No; Reg Smoking Cessation Counseling No 1none Assessment and Plan No data available for this section
--- OUTSIDE RECORDS SUMMARY | 2018-09-22 06:01 | XMS REPORT | Summary of Care ---
Author Author [facility] Organization [facility] Address Unknown Phone Unavailable Encounter HQ Eileen(KAILA) [id number] Date(s): 09/15/16 - 09/16/16 [facility] [address] [place] [address]- Discharge Disposition: Home or Self Care Attending Physician: Tor Echols MD Admitting Physician: Tor Echols MD Vital Signs 1 2 3 Most recent to oldest [Reference Range]: 172.72 cm (09/15/16 11:17 AM) Height 98.6 DegF (09/16/16 7:44 AM) 98.2 DegF (09/16/16 4:00 AM) 98.4 DegF (09/16/16 12:00 AM) Temperature Oral [96.4-99.1 DegF] 149/70 mmHg *HI* (09/16/16 7:44 AM) 163/79 mmHg *HI* (09/16/16 4:00 AM) 126/68 mmHg (09/16/16 12:00 AM) Blood Pressure [90-140/60-90 mmHg] 16 BRMIN (09/16/16 7:44 AM) 16 BRMIN (09/16/16 4:00 AM) 16 BRMIN (09/16/16 12:00 AM) Respiratory Rate [14-20 BRMIN] 65 bpm (09/16/16 7:44 AM) 64 bpm (09/16/16 4:00 AM) 71 bpm (09/16/16 12:00 AM) Peripheral Pulse Rate [60-100 bpm] 81.818 kg (09/15/16 4:00 PM) 81.818 kg (09/15/16 11:17 AM) Weight 27.43 m2 (09/15/16 11:17 AM) Body Mass Index Problem List Condition Effective Dates Status Health Status Informant Acute Active bronchitis(Confirmed ) Anxiety 03/02/13 Active disorder(Confirmed)1 Benign essential Active hypertension(Confirm ed) 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 CAD (coronary artery Active disease)(Confirmed) Candidal Active intertrigo(Confirmed ) Cardiac pacemaker3 04/24/14 Active Chronic back pain4 06/29/59 Active Chronic obstructive 04/24/14 Active lung disease5 Depression, Active major(Confirmed) Diarrhea(Confirmed) Active Dizziness6 05/09/14 Active Gastritis(Confirmed) Active Penile Active bleeding(Confirmed) Medicare annual Resolved wellness visit, subsequent(Confirmed ) Mixed Active hyperlipidemia(Confi rmed)7 Orthostatic 11/03/14 Active hypotension8, 9 [id number] 03/02/13 Active Prediabetes(Confirme Active d) S/P PTCA Active (percutaneous transluminal coronary angioplasty)(Confirm ed) Screening for Resolved prostate cancer(Confirmed) Sick sinus Active [id number] Subcortical Active hemorrhage(Confirmed ) 1Data migrated from [...] CDT, Duration: 30 day, Stop date: 10/16/16 9: 49:00 CDT, back pain Notes: Do not exceed 4gm/day of acetaminophen. (Same as: Roy 325/10) Start Date: 09/16/16 Stop Date: 09/16/16 Status: Discontinued aspirin 81 mg tablet, enteric coated 81 mg, 1 tab, Route: PO, Drug form: ECTAB, Daily, Dosing Weight 81.818, kg, Star t date: 09/16/16 9:00:00 CDT, Duration: 30 day, Stop date: 10/15/16 9:00:00 CDT Notes: Do not crush or chew.(Same As: Ecotrin) Start Date: 09/16/16 Stop Date: 09/16/16 Status: Discontinued Combivent Respimat CFC free 100 mcg-20 mcg/inh inhalation aerosol 1 puff, Route: INHALATION, Drug Form: AERO, Dosing Weight 81.818, kg, QID, Start date: 09/15/16 21:00:00 CDT, Duration: 30 day, Stop date: 10/15/16 17:00:00 CDT Notes: Same as: Combivent RespimatWASTE: Aerosol - Return to Pharmacy Start Date: 09/15/16 Stop Date: 09/16/16 Status: Discontinued Cymbalta 60 mg, 2 cap, Route: PO, Drug form: DRC, BID, Dosing Weight 81.818, kg, Start da te: 09/16/16 9:00:00 CDT, Duration: 30 day, Stop date: 10/15/16 17:00:00 CDT Notes: (Same as: Cymbalta) (Do Not Crush) Start Date: 09/16/16 Stop Date: 09/16/16 Status: Discontinued famotidine 20 mg, 1 tab, Route: PO, Drug form: TAB, Q12H, Start date: 09/15/16 21:00:00 CDT , Duration: 30 day, Stop date: 10/15/16 9:00:00 CDT Notes: (Same as: Pepcid) Start Date: 09/15/16 Stop Date: 09/16/16 Status: Discontinued furosemide 20 mg oral tablet 20 mg, 1 tab, Route: PO, Drug form: TAB, Daily, Dosing Weight 81.818, kg, Start date: 09/16/16 9:00:00 CDT, Duration: 30 day, Stop date: 10/15/16 9:00:00 CDT Notes: (Same as: Lasix) May cause GI upset. Give with food or milk. Start Date: 09/16/16 Stop Date: 09/16/16 Status: Discontinued pravastatin 40 mg, 2 tab, Route: PO, Drug form: TAB, Bedtime, Dosing Weight 81.818, kg, Star t date: 09/15/16 21:00:00 CDT, Duration: 30 day, Stop date: 10/14/16 21:00:00 CD T Notes: (Same as: Pravachol) Start Date: 09/15/16 Stop Date: 09/16/16 Status: Discontinued Protonix 80 mg, Route: IVP, Drug form: INJ, ONCE, Dosing Weight 81.818, kg, Priority: STA T, Start date: 09/15/16 11:38:00 CDT, Stop date: 09/15/16 11:38:00 CDT Notes: For IV push reconstitute with 10 ml 0.9% sodium chloride and push over 2 minutes. (Same as: Protonix) Start Date: 09/15/16 Stop Date: 09/15/16 Status: Completed ranitidine 150 mg oral tablet 150 mg, 1 tab, Route: PO, Drug form: TAB, BID, Dosing Weight 81.818, kg, Start d ate: 09/16/16 9:00:00 CDT, Duration: 30 day, Stop date: 10/15/16 17:00:00 CDT Start Date: 09/16/16 Stop Date: 09/15/16 Status: Deleted Sodium Chloride 0.9% (Bolus) IV 500 mL, 500 ml/hr, Infuse Over: 1 hr, Route: IV, 500, Drug form: INJ, ONCE, Prio rity: STAT, Dosing Weight 81.818 kg, Start date: 09/15/16 11:38:00 CDT, Duration : 1 doses or times, Stop date: 09/15/16 11:38:00 CDT Start Date: 09/15/16 Stop Date: 09/15/16 Status: Completed Spiriva 18 mcg inhalation capsule 18 microgram, 1 inhalation, Route: INHALATION, Drug form: CAP, Daily, Dosing Jeremy ght 81.818, kg, Start date: 09/16/16 9:00:00 CDT, Duration: 30 day, Stop date: 10/15/16 9:00:00 CDT Notes: (Same As: Spiriva). Start Date: 09/16/16 Stop Date: 09/16/16 Status: Discontinued trazodone 25 mg, 0.5 tab, Route: PO, Drug form: TAB, Bedtime, Dosing Weight 81.818, kg, IL N Sleep, Start date: 09/15/16 20:03:00 CDT, Duration: 30 day, Stop date: 7 20:02:00 CDT, .. Notes: (Same As: Desyrel) Start Date: 09/15/16 Stop Date: 09/16/16 Status: Discontinued Results ELECTROLYTES 1 2 3 Most recent to oldest [Reference Range]: 144 mEq/L (09/16/16 3:47 AM) 141 mEq/L (09/15/16 11:28 AM) Sodium Lvl [135-145 mEq/L] 3.8 mEq/L (09/16/16 3:47 AM) 3.4 mEq/L *LOW* (09/15/16 11:28 AM) Potassium Lvl [3.5-5.1 mEq/L] 105 mEq/L (09/16/16 3:47 AM) 101 mEq/L (09/15/16 11:28 AM) Chloride Lvl [95-109 mEq/L] 33 mEq/L *HI* (09/16/16 3:47 AM) 27 mEq/L (09/15/16 11:28 AM) CO2 [24-32 mEq/L] 9.8 mEq/L *LOW* (09/16/16 3:47 AM) 16.4 mEq/L (09/15/16 11:28 AM) AGAP [10.0-20.0 mEq/L] CHEM PANEL 1 2 3 Most recent to oldest [Reference Range]: 1.20 mg/dL (09/16/16 3:47 AM) 1.60 mg/dL *HI* (09/15/16 11:28 AM) Creatinine Lvl [0.50-1.40 mg/dL] 59 mL/min/1.73m2 1 *NA* (09/16/16 3:47 AM) 42 mL/min/1.73m2 2 *NA* (09/15/16 11:28 AM) eGFR 10 mg/dL (09/16/16 3:47 AM) 15 mg/dL (09/15/16 11:28 AM) BUN [7-22 mg/dL] 8 (09/16/16 3:47 AM) 9 (09/15/16 11:28 AM) B/C Ratio [6-25] 102 mg/dL *HI* (09/16/16 3:47 AM) 180 mg/dL *HI* (09/15/16 11:28 AM) Glucose Lvl [70-99 mg/dL] 6.7 g/dL (09/16/16 3:47 AM) 7.2 g/dL (09/15/16 11:28 AM) Total Protein [6.4-8.4 g/dL] 3.2 g/dL *LOW* (09/16/16 3:47 AM) 3.6 g/dL (09/15/16 11:28 AM) Albumin Lvl [3.5-5.0 g/dL] 3.5 g/dL (09/16/16 3:47 AM) 3.6 g/dL (09/15/16 11:28 AM) Globulin [2.7-4.2 g/dL] 0.9 (09/16/16 3:47 AM) 1.0 (09/15/16 11:28 AM) A/G Ratio [0.7-1.6] 8.8 mg/dL (09/16/16 3:47 AM) 9.1 mg/dL (09/15/16 11:28 AM) Calcium Lvl [8.5-10.5 mg/dL] 11 unit/L (09/16/16 3:47 AM) 11 unit/L (09/15/16 11:28 AM) ALT [0-65 unit/L] 12 unit/L (09/16/16 3:47 AM) 11 unit/L (09/15/16 11:28 AM) AST [0-37 unit/L] 88 unit/L (09/16/16 3:47 AM) 101 unit/L (09/15/16 11:28 AM) Alk Phos [39-136 unit/L] 0.5 mg/dL (09/16/16 3:47 AM) 0.6 mg/dL (09/15/16 11:28 AM) Bili Total [0.2-1.3 mg/dL] 1Result Comment: The eGFR is calculated using [...] tiplied by the estimated BMI. CARDIAC ENZYMES 1 2 3 Most recent to oldest [Reference Range]: 74 unit/L (09/15/16 11:22 PM) 51 unit/L (09/15/16 5:40 PM) 53 unit/L (09/15/16 11:28 AM) Total CK [12-191 unit/L] <0.02 ng/mL (09/15/16 11:22 PM) <0.02 ng/mL (09/15/16 5:40 PM) <0.02 ng/mL (09/15/16 11:28 AM) Troponin-I [0.00-0.40 ng/mL] LIPIDS 1 2 3 Most recent to oldest [Reference Range]: 4.39 (09/16/16 3:47 AM) CHD Risk [4.00-7.30] 167 mg/dL (09/16/16 3:47 AM) Chol [<=199 mg/dL] 183 mg/dL *HI* (09/16/16 3:47 AM) Trig [<=149 mg/dL] 38 mg/dL *LOW* (09/16/16 3:47 AM) HDL [>=61 mg/dL] 92 mg/dL (09/16/16 3:47 AM) LDL (Calculated) [<=99 mg/dL] 37 *NA* (09/16/16 3:47 AM) VLDL SPECIAL CHEMISTRY 1 2 3 Most recent to oldest [Reference Range]: 5.9 % *HI* (09/16/16 3:47 AM) Hgb A1C [<=5.6 %] ANEMIA STUDY 1 2 3 Most recent to oldest [Reference Range]: 531 pg/mL (09/16/16 3:47 AM) Vitamin B12 Lvl [254-1320 pg/mL] IMMUNOLOGY 1 2 3 Most recent to oldest [Reference Range]: Non Reactive (09/16/16 3:47 AM) RPR [Non Reactive] HEMATOLOGY 1 2 3 Most recent to oldest [Reference Range]: 8.0 K/CMM (09/16/16 3:47 AM) 10.6 K/CMM *HI* (09/15/16 11:28 AM) WBC [3.7-10.4 K/CMM] 4.49 M/CMM *LOW* (09/16/16 3:47 AM) 4.97 M/CMM (09/15/16 11:28 AM) RBC [4.70-6.10 M/CMM] 12.5 g/dL *LOW* (09/16/16 3:47 AM) 13.8 g/dL *LOW* (09/15/16 11:28 AM) Hgb [14.0-18.0 g/dL] 37.9 % *LOW* (09/16/16 3:47 AM) 41.9 % *LOW* (09/15/16 11:28 AM) Hct [42.0-54.0 %] 84.5 fL (09/16/16 3:47 AM) 84.3 fL (09/15/16 11:28 AM) MCV [80.0-94.0 fL] 27.9 pg (09/16/16 3:47 AM) 27.8 pg (09/15/16 11:28 AM) MCH [27.0-31.0 pg] 33.1 g/dL (09/16/16 3:47 AM) 33.0 g/dL (09/15/16 11:28 AM) MCHC [32.0-36.0 g/dL] 14.4 % (09/16/16 3:47 AM) 14.3 % (09/15/16 11:28 AM) RDW [11.5-14.5 %] 213 K/CMM (09/16/16 3:47 AM) 259 K/CMM (09/15/16 11:28 AM) Platelet [133-450 K/CMM] 9.2 fL (09/16/16 3:47 AM) 9.0 fL (09/15/16 11:28 AM) MPV [7.4-10.4 fL] 65.1 % (09/16/16 3:47 AM) 71.7 % (09/15/16 11:28 AM) Segs [45.0-75.0 %] 24.4 % (09/16/16 3:47 AM) 21.3 % (09/15/16 11:28 AM) Lymphocytes [20.0-40.0 %] 8.2 % (09/16/16 3:47 AM) 5.4 % (09/15/16 11:28 AM) Monocytes [2.0-12.0 %] 2.1 % (09/16/16 3:47 AM) 1.3 % (09/15/16 11:28 AM) Eosinophils [0.0-4.0 %] 0.2 % (09/16/16 3:47 AM) 0.3 % (09/15/16 11:28 AM) Basophils [0.0-1.0 %] 5.2 K/CMM (09/16/16 3:47 AM) 7.6 K/CMM (09/15/16 11:28 AM) Segs-Bands # [1.5-8.1 K/CMM] 2.0 K/CMM (09/16/16 3:47 AM) 2.3 K/CMM (09/15/16 11:28 AM) Lymphocytes # [1.0-5.5 K/CMM] 0.7 K/CMM (09/16/16 3:47 AM) 0.6 K/CMM (09/15/16 11:28 AM) Monocytes # [0.0-0.8 K/CMM] 0.2 K/CMM (09/16/16 3:47 AM) 0.1 K/CMM (09/15/16 11:28 AM) Eosinophils # [0.0-0.5 K/CMM] 13.1 seconds (09/15/16 11:28 AM) PT [12.0-14.7 seconds] 0.97 (09/15/16 11:28 AM) INR [0.85-1.17] 25.2 seconds (09/15/16 11:28 AM) PTT [22.9-35.8 seconds] Immunizations Given and Recorded Vaccine Date Status Refusal Reason Hx influenza vaccine-unspecified1 04/24/14 Given influenza virus vaccine, inactivated 03/17/16 Given influenza virus vaccine, inactivated2 04/24/14 Given pneumococcal 23-valent vaccine3 11/11/13 Given 1Result Comment: done high dose. Migrated from OBS ; Data migrated from [employer] on 07/31/2015. 2Result Comment: fluzone high dose [[id number]]. Migrated from OBS ; Data migrated from [employer] on 07/31/2015. 3Result Comment: pneumovax 23 [cvx33]. Migrated from OBS VIS: Pneumovax 23: 04/03/09 ; Data migrated from [employer] on 07/31/2015. Procedures Procedure Date Related Diagnosis [...] Days No; Reg Smoking Cessation Counseling No Assessment and Plan Extracted from: Title: Clinical Document Author: Megha Mayfield MD Date: 09/16/16 Progress Note Gastroenterology and Hepatology ASSESSMENT /PLAN: A 76-year-old male with history of coronary artery disease, hypertension, prior history of seizures, admitted with what appears to be syncope versus seizure. Also, a history of questionable hematemesis for which GI was consulted, but upon questioning, it appears that this may be emesis of ingested material. Given lack of new GI bleed or drop in Hgb; no indication for endoscopic work up at this time. Stable from GI. SUBJECTIVE: Patient seen and examined at bedside. Events of the day reviewed with nursing staff. No new complaints. Review of Systems: (-)=Negative,(+)=Positive 1) Const: (-) fever, (-) weight change 2) Skin: (-) rash, (-) bleeding 3) HEENT: (-) difficulty swallowing, (-) swelling 4) Eyes: (-) vision changes, (-) bleeding 5) Neuro: (-) weakness, (-) headaches 6) Resp: (-) dyspnea on exertion, (-) cough 7) Cardio: (-) chest pain, (-) orthopnea 8) GI: (-) blood in stool, (-) reflux 9) : (-) dysuria, (-) bloody discharge 10) Endo: (-) heat intolerance, (-) cold intolerance OBJECTIVE: Vitals: See below General: Alert , Oriented x 3 CVS: s1s2 RRR Resp: CTA Bilaterally Abd : Soft, NT, ND , BS + Ext : no edema SATURATION DIVER: No gross motor/sensory defects VitalsTmp(F)Tmp(C)ZbxnuJMQGXQbfjuMTRpT1MJS8KXBO9 09/16 07:4498.637.00asvj781/70---[id number]------ 09/16 04:0098.236.45uxru225/79---[id number]------ 09/16 00:0098.436.20hsuu619/68---7116--------- 09/15 20:0098.136.25zxgk771/70---[id number]------ 09/15 16:0098.236.06ihrm718/72---025020------ 24 Hr Tmax: 98.6F (37.00c) at 09/16 07:44Vital Signs are the last 5 in the past 48 hours. 24 Hr Tmin: 98.1F (36.72c) at 09/15 20:00Weights are the last 5 in 60 days, plus initial. DateWt(kg)Wt(lb)Ht(cm)Ht(in)MethodBMI 09/15 (initial) 81.82 180.35394.72 68.00Measured 27.4 Most Recent Scores: 09/16/16Johns Maya Fall Score10 09/16/16Pain Intensity NRS (0-10)0 09/15/16Braden Score19 09/15/16Glasgow Coma Score15 09/15/16NIH Stroke Score0 Lines, Tubes, and Drains: 09/15/2016 20:00 Peripheral Lines: Forearm Right Over the needle catheter (no surgical procedures documented) I&ORecordInOutBal 08/2123hr Tot 0 0 0 08/2023hr Tot 980 0 980 24hr Labs 09/16 0347 Fuyz479 Vyie860 H HDL38 L LDL (Calculated)92 VLDL37 CHD Risk4.39 Sodium Xij579 Potassium Lvl3.8 Chloride Biu801 CO233 H AGAP9.8 L Glucose Num678 H Creatinine Lvl1.20 BUN10 B/C Ratio8 Total Protein6.7 Albumin Lvl3.2 L Globulin3.5 A/G Ratio0.9 Calcium Lvl8.8 ALT11 AST12 Alk Phos88 Bili Total0.5 eGFR59 TSH1.150 Hgb A1C5.9 H WBC8.0 RBC4.49 L Hgb12.5 L Hct37.9 L MCV84.5 MCH27.9 MCHC33.1 RDW14.4 Ockjkcea917 MPV9.2 Segs65.1 Monocytes8.2 Fbogowcpaaj12.4 Eosinophils2.1 Basophils0.2 Segs-Bands #5.2 Lymphocytes #2.0 Monocytes #0.7 Eosinophils #0.2 09/152 Total CK74 Troponin-I<0.02 09/15 1740 Total CK51 Troponin-I<0.02 09/15 1128 Sodium Wfc136 Potassium Lvl3.4 L Chloride Wlr007 CO227 AGAP16.4 Glucose Ztt727 H Creatinine Lvl1.60 H BUN15 B/C Ratio9 Total Protein7.2 Albumin Lvl3.6 Globulin3.6 A/G Ratio1.0 Calcium Lvl9.1 ALT11 AST11 Alk Ttwu539 Bili Total0.6 eGFR42 Total CK53 Troponin-I<0.02 PT13.1 INR0.97 PTT25.2 Scheduled Meds (7): DULoxetine (Cymbalta) 60 mg PO BID [eMAR Schedule: (09/16/16) 09:00, 17:00] albuterol-ipratropium (Combivent Respimat CFC free 100 mcg-20 mcg/inh inhalation aerosol) 1 puff INHALATION QID [eMAR Schedule: (09/16/16) 09:00, 13:00, 17:00, 21:00] aspirin (aspirin 81 mg tablet, enteric coated) 81 mg PO Daily [eMAR Schedule: (09/16/16) 09:00] [Future Dose: 09/17/16 09:00] famotidine 20 mg PO Q12H [eMAR Schedule: (09/16/16) 09:00, 21:00] furosemide (furosemide 20 mg oral tablet) 20 mg PO Daily [eMAR Schedule: (09/16/16) 09:00] [Future Dose: 09/17/16 09:00] pravastatin 40 mg PO Bedtime [eMAR Schedule: (09/16/16) 21:00] [Future Dose: 09/17/16 21:00] tiotropium (Spiriva 18 mcg inhalation capsule) 18 microgram INHALATION Daily [eMAR Schedule: (09/16/16) 09:00] [Future Dose: 09/17/16 09:00] Unscheduled Meds: None PRN Meds (2): acetaminophen-hydrocodone (acetaminophen-hydrocodone 325 mg-10 mg oral tablet) 1 tab PO Q6H trazodone 25 mg PO Bedtime One Time Meds (2): (Completed) Sodium Chloride 0.9% IV (Sodium Chloride 0.9% (Bolus) IV) 500 mL IV ONCE 500 ml/hr (Completed) pantoprazole (Protonix) 80 mg IVP ONCE Continuous Infusions: None Type of Bladder Control: Voluntary Type of Urinary Elimination: Continent Extracted from: Title: Clinical Document Author: Edward Chiang MD Date: 09/15/16 Cardiology Note Edward Chiang MD, PA SUBJECTIVE: REASON FOR CONSULTATION: Syncope HISTORY OF PRESENT ILLNESS: Mr. Lyman is a 76-year-old male with a history of anxiety disorder, coronary artery disease, chronic back pain, COPD, depression, prior history of sick sinus syndrome, prior history of syncopal events who presented to the ER after history of syncope. Per patient, patient states that he passed out, could not remember much, called EMS. Per ER notes, there was a witnessed seizure, he was pale, maliha phoretic and voided in his pants. Apparently, this happens 2 to 3 times a year, usually gets admitted to the hospital, spends 3 to 4 days and gets discharged. However, in the waiting room, there was a witnessed vomiting with red jello type material in the emesis; therefore, GI has been consulted. Upon talking to the patient, he states that he may have had red Jello in the waiting room before the emesis episode. Denies any prior history of abdominal pain, nausea, vomiting, prior history of peptic ulcer disease. Denies taking nonsteroidal anti- inflammatory medication. From a cardiac standpoint he reports coronary artery disease status post 2 previous stents. The most recent was a few years ago. He also had a pacemaker inserted originally 15 years ago and then had a generator change about a year or 2 ago. PAST MEDICAL PROBLEMS: As above. HOME MEDICATIONS: See reconciliation list SOCIAL HISTORY: Denies any smoking or alcohol. FAMILY HISTORY: Reviewed, not pertinent to his presentation. REVIEW OF SYSTEMS: A 14-point systems performed. Pertinent positives and negatives listed in HPI. Vitals and Temp: VitalsTmp(F)ZfmamPXNZJdL0QZK4 09/15 16:0098.669596/265525--- 09/15 14:08----[id number]--- 09/15 13:47----75424/[id number]--- 09/15 11:55---------1993--- 09/15 11:1798.46012/546868--- 24 Hr Tmax: 98.2F (36.78c) at 09/15 16:00Vital Signs are the last 5 in the past 48 hours. Labs (Last four charted values) WBC H 10.6(SEP 15) Hgb L 13.8(SEP 15) Hct L 41.9(SEP 15) Plt 259(SEP 15) Na 141(SEP 15) K L 3.4(SEP 15) CO2 27(SEP 15) Cl 101(SEP 15) Cr H 1.60(SEP 15) BUN 15(SEP 15) Glucose Random H 180(SEP 15) Ca 9.1(SEP 15) PT 13.1(SEP 15) INR 0.97(SEP 15) PTT 25.2(SEP 15) Troponin <0.02(SEP 15)<0.02(SEP 15) Total CK 51(SEP 15)53(SEP 15) EXAM: Good BP control; NSR; afebrile Head: normocephalic and atraumatic Neck: no carotid bruit; no JVD CV: Regular; -S3; no significant murmurs Lungs: Clear; no wheezing; good air entry Abd: soft and no organomegaly; + bowel sounds Ext: no CCE; good pulses distally Neuro: nonfocal; oriented *3 Psych: appropriate ASSESSMENT: Recurrent syncope with negative evaluation in the past Sick sinus syndrome status post pacemaker implantation and a generator change a year ago; currently in sinus rhythm Stable CAD status post 2 stents many years ago; denies angina Bloody emesis noted in the ER PLAN: Observe on telemetry No further cardiac workup indicated at this time as he has already undergone a workup on multiple previous occasions GI recommendations noted Okay to discharge home tomorrow from a cardiac standpoint if he continues to maintain sinus rhythm
--- OUTSIDE RECORDS SUMMARY | 2018-09-22 06:01 | XMS REPORT | Summary of Care ---
Author Author [facility] Organization [facility] Address Unknown Phone Unavailable Encounter HQ Eileen(FIN) [id number] Date(s): 10/18/15 - 10/18/15 [facility] [address] [place] [address] Discharge Disposition: Home Attending Physician: Ish Schuster MD Referring Physician: Ish Schuster MD Vital Signs No data available for [...] subsequent(Confirmed ) Orthostatic 11/03/14 Active hypotension8, 9 Uvhgqovyjymlon82 03/02/13 Active Prediabetes(Confirme Active d) S/P PTCA Active (percutaneous transluminal coronary angioplasty)(Confirm ed) Screening for Active prostate cancer(Confirmed) Sick sinus Active hltgyxzl46 TIA(Confirmed) Resolved 1Data migrated from [employer] [...] No data available for this section Immunizations Vaccine Date Refusal Reason Hx influenza vaccine-unspecified1 04/24/14 influenza virus vaccine, inactivated2 04/24/14 pneumococcal 23-valent vaccine3 11/11/13 1Result Comment: done high dose. Migrated from OBS ; Data migrated from [employer] on 07/31/2015. 2Result Comment: fluzone high dose [[id number]]. Migrated from OBS ; Data migrated from [employer] on 07/31/2015. 3Result Comment: pneumovax 23 [cvx33]. Migrated from OBS VIS: Pneumovax 23: 04/03/09 ; Data migrated from [employer] on 07/31/2015. Procedures Procedure Date Related Diagnosis Body Site Myelography via lumbar injection, including 10/18/15 radiological supervision and interpretation; 2 or more regions (eg, lumbar/thoracic, cervical/thoracic, lumbar/cervical, lumbar/thoracic/cervical) Bilateral replacement of knee joints Carotid endarterectomy1 [...]
--- OUTSIDE RECORDS SUMMARY | 2018-09-22 06:01 | XMS REPORT ---
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
--- OUTSIDE RECORDS SUMMARY | 2018-09-22 06:01 | XMS REPORT | Summary of Care ---
Author Author [facility] Organization [facility] Address Unknown Phone Unavailable Encounter HQ Eileen(KAILA) [id number] Date(s): 09/21/15 - 09/23/15 [facility] [address] [employer] provided by [facility] [place] [address]- Discharge Disposition: Home Attending Physician: Tom Mace MD Admitting Physician: Tom Mace MD Vital Signs 1 2 3 Most recent to oldest [Reference Range]: 172.72 cm (09/22/15 7:22 PM) Height 97.6 DegF (09/23/15 12:00 AM) 97.6 DegF (09/22/15 8:04 PM) 97.0 DegF (09/22/15 4:00 PM) Temperature Oral [96.4-99.1 DegF] 144/74 mmHg *HI* (09/23/15 10:41 AM) 144/74 mmHg *HI* (09/23/15 10:38 AM) 133/56 mmHg (09/23/15 9:00 AM) Blood Pressure [90-140/60-90 mmHg] 20 BRMIN (09/23/15 11:31 AM) 20 BRMIN (09/23/15 11:30 AM) 26 BRMIN *HI* (09/23/15 11:11 AM) Respiratory Rate [14-20 BRMIN] 63 bpm (09/22/15 4:24 AM) 69 bpm (09/22/15 12:15 AM) 73 bpm (09/21/15 11:28 PM) Peripheral Pulse Rate [60-100 bpm] 79 kg (09/22/15 7:22 PM) 79.545 kg (09/21/15 7:59 PM) Weight 26.48 m2 (09/22/15 7:22 PM) Body Mass Index Problem List Condition [...] subsequent(Confirmed ) Orthostatic 11/03/14 Active hypotension8, 9 [id number] 03/02/13 Active Prediabetes(Confirme Active d) S/P PTCA Active (percutaneous transluminal coronary angioplasty)(Confirm ed) Screening for Active prostate cancer(Confirmed) Sick sinus Active [id number] TIA(Confirmed) Resolved 1Data migrated from [employer] [...] on 08/31/15. Originally documented as NKA. Medications acetaminophen 650 mg, 2 tab, Route: PO, Drug form: TAB, Q4H, Dosing Weight 79.545, kg, PRN Isaac n 1-3/Temp > 99.5 F, Start date: 09/22/15 1:46:00, Duration: 30 day, Stop date: 10/22/15 1:45:00 Notes: Do not exceed 4 gm/day. (Same as: Tylenol) Start Date: 09/22/15 Stop Date: 09/23/15 Status: Discontinued acetaminophen-hydrocodone 325 mg-10 mg oral tablet 1 tab, Route: PO, Dosing Weight 79.545, kg, ONCE, STAT, Start date: 09/22/15 1:1 0:00, Stop date: 09/22/15 1:10:00 Start Date: 09/22/15 Stop Date: 09/22/15 Status: Completed ALPRAZOLam 0.5 mg oral tablet 0.5 mg, 1 tab, Route: PO, Drug form: TAB, TID, Dosing Weight 79, kg, PRN as need ed for anxiety, Start date: 09/22/15 21:59:00, Duration: 30 day, Stop date: 09/28 11/11 21:58:00 Notes: With food or milk(Same as: Xanax) Start Date: 09/22/15 Stop Date: 09/23/15 Status: Discontinued cyclobenzaprine 10 mg, 1 tab, Route: PO, Drug form: TAB, Q8H, Dosing Weight 79, kg, PRN Spasm, P riority: NOW, Start date: 09/22/15 21:58:00, Duration: 30 day, Stop date: 21:57:00 Notes: (Same As: Flexeril) Start Date: 09/22/15 Stop Date: 09/23/15 Status: Discontinued Cymbalta 60 mg, 2 cap, Route: PO, Drug form: DRC, Daily, Dosing Weight 79, kg, Start date : 09/23/15 9:00:00, Duration: 30 day, Stop date: 10/22/15 9:00:00 Notes: (Same as: Cymbalta) (Do Not Crush) Start Date: 09/23/15 Stop Date: 09/23/15 Status: Discontinued docusate 100 mg, 1 cap, Route: PO, Drug form: CAP, Q12H, Dosing Weight 79.545, kg, Start date: 09/22/15 9:00:00, Duration: 30 day, Stop date: 10/21/15 21:00:00 Notes: (Same as: Colace) (Do Not Crush) Start Date: 09/22/15 Stop Date: 09/23/15 Status: Discontinued heparin 5000 units/mL injectable solution 5,000 unit, 1 mL, Route: SUB-Q, Drug form: INJ, Q8H, Dosing Weight 79, kg, Start date: 09/23/15 8:00:00, Duration: 30 day, Stop date: 10/23/15 0:00:00 Notes: porcine heparin Start Date: 09/23/15 Stop Date: 09/23/15 Status: Discontinued hydrALAZINE 10 mg, 0.5 mL, Route: IVP, Drug form: INJ, Q4H, Dosing Weight 79.545, kg, PRN Hy pertension, For SBP>150, Start date: 09/22/15 8:18:00, Duration: 30 day, Stop date: 10/22/15 8:17:00 Notes: (Same as: Apresoline)Push over 5 minutes Start Date: 09/22/15 Stop Date: 09/23/15 Status: Discontinued labetalol 20 mg, 4 mL, Route: IVP, Drug form: INJ, Q15Min, Dosing Weight 79.545, kg, PRN H ypertension, please hold for heart rate less than 65, Start date: 09/22/15 8:17: 00, Duration: 30 day, Stop date: 10/22/15 8:16:00 Start Date: 09/22/15 Stop Date: 09/23/15 Status: Discontinued Lasix 20 mg oral tablet 20 mg, 1 tab, Route: PO, Drug form: TAB, Daily, Dosing Weight 79, kg, Start date : 09/23/15 9:00:00, Duration: 30 day, Stop date: 10/22/15 9:00:00 Notes: (Same as: Lasix) May cause GI upset. Give with food or milk. Start Date: 09/23/15 Stop Date: 09/23/15 Status: Discontinued levETIRAcetam 500 mg, 1 tab, Route: PO, Drug form: TAB, Q12H, Dosing Weight 79.545, kg, Start date: 09/22/15 9:00:00, Duration: 30 day, Stop date: 10/21/15 21:00:00 Notes: (Same as:Keppra) Start Date: 09/22/15 Stop Date: 09/23/15 Status: Discontinued levETIRAcetam + Sodium Chloride 0.9% IV 100 mL 1,000 mg, Route: IVPB, ONCE, Dosing Weight 79.545, kg, Start date: 09/22/15 1:46 :00, Stop date: 09/22/15 1:46:00 Notes: Same as KeppraMix with 100 mL NS, LR or D5W MEDICATION WASTE Prod uct Size: 500 mgProduct Wasted: ___ mg Start Date: 09/22/15 Stop Date: 09/22/15 Status: Completed levETIRAcetam 500 mg oral tablet 500 mg=1 tab, PO, Q12H, # 12 tab, 0 Refill(s) Start Date: 09/23/15 Stop Date: 09/29/15 Status: Ordered morphine Sulfate 4 mg, Route: IVP, ONCE, Dosing Weight 79.545, kg, Start date: 09/22/15 13:40:00, Stop date: 09/22/15 13:40:00 Start Date: 09/22/15 Stop Date: 09/22/15 Status: Completed morphine Sulfate 4 mg, Route: IVP, ONCE, Dosing Weight 79.545, kg, Start date: 09/22/15 0:07:00, Stop date: 09/22/15 0:07:00 Start Date: 09/22/15 Stop Date: 09/22/15 Status: Completed [place] 10/325 oral tablet 1 tab, Route: PO, Drug Form: TAB, Dosing Weight 79.545, kg, Q6H, PRN Pain Score 4-6, Start date: 09/22/15 19:22:00, Duration: 30 day, Stop date: 10/22/15 19:21: 00 Notes: Do not exceed 4gm/day of acetaminophen. (Same as: [place] 325/10) Start Date: 09/22/15 Stop Date: 09/23/15 Status: Discontinued Ofirmev 1,000 mg, Route: IV, Drug form: INJ, ONCE, Dosing Weight 79.545, kg, PRN Pain Sc ore 1-3, for > or=50 kg, Start date: 09/22/15 8:30:00 Start Date: 09/22/15 Stop Date: 09/22/15 Status: Completed ondansetron 4 mg, Route: IVP, Drug form: INJ, ONCE, Dosing Weight 79.545, kg, Start date: 13:40:00, Stop date: 09/22/15 13:40:00 Start Date: 09/22/15 Stop Date: 09/22/15 Status: Completed ondansetron 4 mg, 2 mL, Route: IVP, Drug form: INJ, Q8H, Dosing Weight 79.545, kg, PRN Nause a & Vomiting, Start date: 09/22/15 1:46:00, Duration: 30 day, Stop date: 10/22/15 1:45:00 Notes: (Same as: Carl) MEDICATION WASTE Product Size: 4 mgProduct Was leon: ___ mg Start Date: 09/22/15 Stop Date: 09/23/15 Status: Discontinued Pepcid 20 mg, 1 tab, Route: PO, Drug form: TAB, Daily, Start date: 09/23/15 9:00:00, Du ration: 30 day, Stop date: 10/22/15 9:00:00 Notes: (Same as: Pepcid) Start Date: 09/23/15 Stop Date: 09/23/15 Status: Discontinued ranitidine 150 mg, 10 mL, Route: PO, Drug form: SYRP, Q12H, Dosing Weight 79, kg, Start hazel e: 09/22/15 21:00:00, Duration: 30 day, Stop date: 10/22/15 9:00:00 Notes: (Same as:Zantac)Non-Formulary Item Take before or with meals Start Date: 09/22/15 Stop Date: 09/22/15 Status: Discontinued ranitidine 150 mg oral capsule 150 mg, 1 cap, Route: PO, Q12H, Dosing Weight 79, kg, Start date: 09/23/15 9:00: 00, Duration: 30 day, Stop date: 10/22/15 21:00:00 Start Date: 09/23/15 Stop Date: 09/22/15 Status: Deleted Saline Flush 0.9% 10 ml, Route: IVP, Drug Form: INJ, Dosing Weight 79.545, kg, Q12H, Start date: 0 09/22/15 9:00:00, Duration: 30 day, Stop date: 10/21/15 21:00:00 Notes: (Same as: BD Posiflush) Start Date: 09/22/15 Stop Date: 09/23/15 Status: Discontinued Saline Flush 0.9% 10 ml, Route: IVP, Drug Form: INJ, Dosing Weight 79.545, kg, PRN, PRN Line Flush , Start date: 09/22/15 1:46:00, Duration: 30 day, Stop date: 10/22/15 1:45:00 Notes: (Same as: BD Posiflush) Start Date: 09/22/15 Stop Date: 09/23/15 Status: Discontinued senna 8.6 mg, 1 tab, Route: PO, Drug Form: TAB, Dosing Weight 79.545, kg, Q12H, Start date: 09/22/15 9:00:00, Duration: 30 day, Stop date: 10/21/15 21:00:00 Notes: (Same as: Senokot) Start Date: 09/22/15 Stop Date: 09/23/15 Status: Discontinued tramadol 50 mg oral tablet 50 mg, 1 tab, Route: PO, Drug form: TAB, Q6H, Dosing Weight 79, kg, PRN Pain Sco re 1-3, Start date: 09/22/15 21:57:00, Duration: 30 day, Stop date: 10/22/15 21: 56:00 Notes: Not to exceed 400mg/day. (Same As: Ultram) Start Date: 09/22/15 Stop Date: 09/23/15 Status: Discontinued Results ELECTROLYTES Most recent to 1 oldest [Reference Range]: Sodium Lvl [135-145 144 mEq/L mEq/L] (09/23/15 3:10 AM) Potassium Lvl 3.4 mEq/L [3.5-5.1 mEq/L] *LOW* (09/23/15 3:10 AM) Chloride Lvl [95-109 105 mEq/L mEq/L] (09/23/15 3:10 AM) CO2 [24-32 mEq/L] 32 mEq/L (09/23/15 3:10 AM) AGAP [10.0-20.0 10.4 mEq/L mEq/L] (09/23/15 3:10 AM) CHEM PANEL Most recent to 1 oldest [Reference Range]: Creatinine Lvl 0.90 mg/dL [0.50-1.40 mg/dL] (09/23/15 3:10 AM) eGFR 84 mL/min/1.73m2 1 *NA* (09/23/15 3:10 AM) BUN [7-22 mg/dL] 8 mg/dL (09/23/15 3:10 AM) Glucose Lvl [70-99 90 mg/dL mg/dL] (09/23/15 3:10 AM) Calcium Lvl 8.9 mg/dL [8.5-10.5 mg/dL] (09/23/15 3:10 AM) Phosphorus [2.5-4.5 3.1 mg/dL mg/dL] (09/23/15 3:10 AM) Magnesium Lvl 2.1 mg/dL [1.8-2.4 mg/dL] (09/23/15 3:10 AM) 1Result Comment: The eGFR is calculated [...] be mul tiplied by the estimated BMI. PARATHYROID PROFILE Most recent to 1 oldest [Reference Range]: Ca Ion WB [1.05-1.25 1.05 mMol/L mMol/L] (09/23/15 3:10 AM) Ca Norm WB 1.08 mMol/L [1.05-1.25 mMol/L] (09/23/15 3:10 AM) HEMATOLOGY Most recent to 1 oldest [Reference Range]: WBC [3.7-10.4 K/CMM] 6.5 K/CMM (09/23/15 3:10 AM) RBC [4.70-6.10 4.35 M/CMM M/CMM] *LOW* (09/23/15 3:10 AM) Hgb [14.0-18.0 g/dL] 13.1 g/dL *LOW* (09/23/15 3:10 AM) Hct [42.0-54.0 %] 39.2 % *LOW* (09/23/15 3:10 AM) MCV [80.0-94.0 fL] 90.2 fL (09/23/15 3:10 AM) MCH [27.0-31.0 pg] 30.0 pg (09/23/15 3:10 AM) MCHC [32.0-36.0 33.3 g/dL g/dL] (09/23/15 3:10 AM) RDW [11.5-14.5 %] 14.2 % (09/23/15 3:10 AM) Platelet [133-450 260 K/CMM K/CMM] (09/23/15 3:10 AM) MPV [7.4-10.4 fL] 8.5 fL (09/23/15 3:10 AM) Segs [45.0-75.0 %] 55.6 % (09/23/15 3:10 AM) Lymphocytes 32.3 % [20.0-40.0 %] (09/23/15 3:10 AM) Monocytes [2.0-12.0 9.2 % %] (09/23/15 3:10 AM) Eosinophils [0.0-4.0 2.5 % %] (09/23/15 3:10 AM) Basophils [0.0-1.0 0.4 % %] (09/23/15 3:10 AM) Segs-Bands # 3.6 K/CMM [1.5-8.1 K/CMM] (09/23/15 3:10 AM) Lymphocytes # 2.1 K/CMM [1.0-5.5 K/CMM] (09/23/15 3:10 AM) Monocytes # [0.0-0.8 0.6 K/CMM K/CMM] (09/23/15 3:10 AM) Eosinophils # 0.2 K/CMM [0.0-0.5 K/CMM] (09/23/15 3:10 AM) Immunizations Vaccine Date Refusal Reason Hx influenza vaccine-unspecified1 04/24/14 influenza virus vaccine, inactivated2 04/24/14 pneumococcal 23-valent vaccine3 11/11/13 1Result Comment: done high dose. Migrated from OBS ; Data migrated from [employer] on 07/31/2015. 2Result Comment: fluzone high dose [[id number]]. Migrated from OBS ; Data migrated from [employer] on 07/31/2015. 3Result Comment: pneumovax 23 [[id number]]. Migrated from OBS VIS: Pneumovax 23: 04/03/09 ; Data migrated from [employer] on 07/31/2015. Procedures Procedure Date Related Diagnosis [...]
--- OUTSIDE RECORDS SUMMARY | 2018-09-22 06:01 | XMS REPORT | Summary of Care ---
Author Author [facility] Organization [facility] Address Unknown Phone Unavailable Encounter HQ Torri_karon(FIN) [id number] Date(s): 10/07/16 - 10/08/16 [facility] [address] [place] [address]- Discharge Disposition: Home or Self Care Attending Physician: Tor Echols MD Admitting Physician: Tor Echols MD Vital Signs 1 2 3 Most recent to oldest [Reference Range]: 172.72 cm (10/08/16 4:13 AM) 172.72 cm (10/07/16 6:48 PM) Height 99.4 DegF *HI* (10/08/16 7:23 PM) 98.4 DegF (10/08/16 3:40 PM) 98 DegF (10/08/16 10:52 AM) Temperature Oral [96.4-99.1 DegF] 152/76 mmHg *HI* (10/08/16 7:23 PM) 154/89 mmHg *HI* (10/08/16 3:40 PM) 116/72 mmHg (10/08/16 10:52 AM) Blood Pressure [90-140/60-90 mmHg] 17 BRMIN (10/08/16 7:23 PM) 18 BRMIN (10/08/16 3:40 PM) 18 BRMIN (10/08/16 10:52 AM) Respiratory Rate [14-20 BRMIN] 87 bpm (10/08/16 7:23 PM) 88 bpm (10/08/16 3:40 PM) 72 bpm (10/08/16 10:52 AM) Peripheral Pulse Rate [60-100 bpm] 81.818 kg (10/08/16 4:13 AM) 81.818 kg (10/07/16 6:48 PM) Weight 27.43 m2 (10/08/16 4:13 AM) 27.43 m2 (10/07/16 6:48 PM) Body Mass Index Problem List Condition [...] hyperlipidemia(Confi rmed)7 Orthostatic 11/03/14 Active hypotension8, 9 [id number] 03/02/13 Active Prediabetes(Confirme Active d) S/P PTCA Active (percutaneous transluminal coronary angioplasty)(Confirm ed) Screening for Resolved prostate cancer(Confirmed) Sick sinus Active [id number] Subcortical Active hemorrhage(Confirmed ) 1Data migrated from [...] Substance Reaction Severity Status NKDA Active Medications *NURSE please bring home meds (2 meds) to Pharmacy for label *NURSE please bring home meds (2 meds) to Pharmacy for label, 1, Drug form: MISC , Route: MISC, TID, 10/08/16 15:00:00 CDT, Duration: 30 day, Stop date: 11/07/16 9:00:00 CDT Start Date: 10/08/16 Stop Date: 10/09/16 Status: Discontinued aspirin 81 mg tablet, enteric coated 81 mg, 1 tab, Route: PO, Drug form: ECTAB, Daily, Dosing Weight 81.818, kg, Star t date: 10/09/16 9:00:00 CDT, Duration: 30 day, Stop date: 11/07/16 9:00:00 CDT Notes: Do not crush or chew.(Same As: Ecotrin) Start Date: 10/09/16 Stop Date: 10/09/16 Status: Canceled bioflavonoids 500 mg, Route: PO, Drug form: CAP, BID, Dosing Weight 81.818, kg, Start date: 17:00:00 CDT, Duration: 30 day, Stop date: 11/07/16 9:00:00 CDT Start Date: 10/08/16 Stop Date: 10/09/16 Status: Discontinued Cialis 5 mg, Route: PO, Drug form: TAB, Daily, Dosing Weight 81.818, kg, Start date: 9:00:00 CDT, Duration: 30 day, Stop date: 11/07/16 9:00:00 CDT Start Date: 10/09/16 Stop Date: 10/09/16 Status: Canceled cloNIDine 0.1 mg, Route: PO, Drug form: TAB, ONCE, Dosing Weight 81.818, kg, Start date: 0 10/07/16 23:22:00 CDT, Stop date: 10/07/16 23:22:00 CDT Start Date: 10/07/16 Stop Date: 10/07/16 Status: Completed Combivent Respimat CFC free 100 mcg-20 mcg/inh inhalation aerosol 1 puff, Route: INHALATION, Drug Form: AERO, Dosing Weight 81.818, kg, RQID, Star t date: 10/08/16 15:00:00 CDT, Duration: 30 day, Stop date: 11/07/16 11:00:00 CD T Notes: Same as: Combivent RespimatWASTE: Aerosol - Return to Pharmacy Start Date: 10/08/16 Stop Date: 10/09/16 Status: Discontinued Cymbalta 60 mg, 2 cap, Route: PO, Drug form: DRC, BID, Dosing Weight 81.818, kg, Start da te: 10/08/16 21:00:00 CDT, Duration: 30 day, Stop date: 11/07/16 9:00:00 CDT Notes: (Same as: Cymbalta) (Do Not Crush) Start Date: 10/08/16 Stop Date: 10/09/16 Status: Discontinued enoxaparin 30 mg, 0.3 mL, Route: SUB-Q, Drug form: INJ, [id number], Dosing Weight 81.818, kg, Start date: 10/08/16 2:00:00 CDT, Duration: 30 day, Stop date: 11/06/16 14:00:00 CDT Notes: (Same as: Lovenox) Start Date: 10/08/16 Stop Date: 10/09/16 Status: Discontinued famotidine 20 mg, 1 tab, Route: PO, Drug form: TAB, Q12H, Start date: 10/08/16 21:00:00 CDT , Duration: 30 day, Stop date: 11/07/16 9:00:00 CDT Notes: (Same as: Pepcid) Start Date: 10/08/16 Stop Date: 10/09/16 Status: Discontinued furosemide 20 mg oral tablet 20 mg, 1 tab, Route: PO, Drug form: TAB, Daily, Dosing Weight 81.818, kg, Start date: 10/09/16 9:00:00 CDT, Duration: 30 day, Stop date: 11/07/16 9:00:00 CDT Notes: (Same as: Lasix) May cause GI upset. Give with food or milk. Start Date: 10/09/16 Stop Date: 10/09/16 Status: Canceled K-Dur 20 40 mEq, 2 tab, Route: PO, Drug form: ERTAB, ONCE, Dosing Weight 81.818, kg, Star t date: 10/08/16 6:44:00 CDT, Stop date: 10/08/16 6:44:00 CDT Notes: (Same as: K-Dur 20)"Do Not Crush" With food and full glass of water Start Date: 10/08/16 Stop Date: 10/08/16 Status: Completed lidocaine topical patch (5% film) 1 patch, Route: TOP, Q24H, Drug form: FILM, Start date: 10/08/16 12:00:00 CDT, D uration: 30 day, Stop date: 11/06/16 12:00:00 CDT Start Date: 10/08/16 Stop Date: 10/09/16 Status: Discontinued Narcan 4 mg, 4 mL, Route: IV, Drug form: INJ, ONCE, Dosing Weight 81.818, kg, Priority: STAT, Start date: 10/07/16 19:24:00 CDT, Stop date: 10/07/16 19:24:00 CDT Notes: (Same as: Narcan) MEDICATION WASTE Product Size: 2 mgProduct Was leon: ___ mg Start Date: 10/07/16 Stop Date: 10/07/16 Status: Completed Narcan 2 mg, Route: IVP, Drug form: INJ, ONCE, Dosing Weight 81.818, kg, Priority: STAT , Start date: 10/07/16 22:38:00 CDT, Stop date: 10/07/16 22:38:00 CDT Start Date: 10/07/16 Stop Date: 10/07/16 Status: Completed niacin 250 mg oral capsule, extended release 500 mg, 2 cap, Route: PO, Drug form: ERCAP, Dinner, Dosing Weight 81.818, kg, St art date: 10/08/16 17:00:00 CDT, Duration: 30 day, Stop date: 11/06/16 17:00:00 CDT Notes: With food. Start Date: 10/08/16 Stop Date: 10/09/16 Status: Discontinued ondansetron 4 mg, 2 mL, Route: IVP, Drug form: INJ, Q6H, Dosing Weight 81.818, kg, PRN Nause a & Vomiting, Start date: 10/08/16 1:11:00 CDT, Duration: 30 day, Stop date: 11/07/16 1:10:00 CDT Notes: (Same as: Zofran) MEDICATION WASTE Product Size: 4 mgProduct Was leon: ___ mg Start Date: 10/08/16 Stop Date: 10/09/16 Status: Discontinued potassium chloride 40 mEq, 2 tab, Route: PO, Drug form: ERTAB, Q4H, Dosing Weight 81.818, kg, Prior ity: NOW, Start date: 10/08/16 11:21:00 CDT, Duration: 2 doses or times, Stop da te: 10/08/16 16:00:00 CDT Notes: (Same as: K-Dur 20)"Do Not Crush" With food and full glass of water Start Date: 10/08/16 Stop Date: 10/08/16 Status: Completed pravastatin 40 mg, 2 tab, Route: PO, Drug form: TAB, Bedtime, Dosing Weight 81.818, kg, Star t date: 10/08/16 21:00:00 CDT, Duration: 30 day, Stop date: 11/06/16 21:00:00 CD T Notes: (Same as: Pravachol) Start Date: 10/08/16 Stop Date: 10/09/16 Status: Discontinued ranitidine 150 mg oral tablet 150 mg, 1 tab, Route: PO, Drug form: TAB, BID, Dosing Weight 81.818, kg, Start d ate: 10/08/16 17:00:00 CDT, Duration: 30 day, Stop date: 11/07/16 9:00:00 CDT Start Date: 10/08/16 Stop Date: 10/08/16 Status: Deleted remove patch 1 patch, Route: TOP, Q24H, Drug form: ERFILM, Start date: 10/09/16 0:00:00 CDT, Duration: 30 day, Stop date: 11/07/16 0:00:00 CDT Start Date: 10/09/16 Stop Date: 10/09/16 Status: Discontinued Saline Flush 0.9% 10 ml, Route: IVP, Drug Form: INJ, Dosing Weight 81.818, kg, PRN, PRN Line Flush , Start date: 10/08/16 1:11:00 CDT, Duration: 30 day, Stop date: 11/07/16 1:10:0 0 CDT Notes: (Same as: BD Posiflush) Start Date: 10/08/16 Stop Date: 10/09/16 Status: Discontinued Saline Flush 0.9% 10 mL, Route: IVP, Drug Form: INJ, Dosing Weight 81.818, kg, PRN, PRN Line Flush , Start date: 10/07/16 19:18:00 CDT, Duration: 30 day, Stop date: 11/06/16 19:17 :00 CDT Notes: (Same as: BD Posiflush) Start Date: 10/07/16 Stop Date: 10/09/16 Status: Discontinued sodium chloride 0.45% 1000 ml INJ 1,000 mL 1,000 mL, Rate: 75 ml/hr, Infuse over: 13.3 hr, Route: IV, Dosing Weight 81.818 kg, Total Volume: 1,000, Start date: 10/08/16 1:11:00 CDT, Duration: 30 day, Sto p date: 11/07/16 1:10:00 CDT Start Date: 10/08/16 Stop Date: 10/09/16 Status: Discontinued Sodium Chloride 0.9% (Bolus) IV 1,000 mL, 1000 ml/hr, Infuse Over: 1 hr, Route: IV, 1,000, Drug form: INJ, ONCE, Priority: STAT, Dosing Weight 81.818 kg, Start date: 10/07/16 19:18:00 CDT, Dur ation: 1 doses or times, Stop date: 10/07/16 19:18:00 CDT Start Date: 10/07/16 Stop Date: 10/07/16 Status: Completed Spiriva 18 mcg inhalation capsule 18 microgram, 1 inhalation, Route: INHALATION, Drug form: CAP, Daily, Dosing Jeremy ght 81.818, kg, Start date: 10/09/16 9:00:00 CDT, Duration: 30 day, Stop date: 0 11/07/16 9:00:00 CDT Notes: (Same As: Spiriva). Start Date: 10/09/16 Stop Date: 10/09/16 Status: Canceled Results ELECTROLYTES Most recent to 1 oldest [Reference Range]: Sodium Lvl [135-145 140 mEq/L mEq/L] (10/07/16 7:42 PM) Potassium Lvl 3.3 mEq/L [3.5-5.1 mEq/L] *LOW* (10/07/16 7:42 PM) Chloride Lvl [95-109 98 mEq/L mEq/L] (10/07/16 7:42 PM) CO2 [24-32 mEq/L] 32 mEq/L (10/07/16 7:42 PM) AGAP [10.0-20.0 13.3 mEq/L mEq/L] (10/07/16 7:42 PM) CHEM PANEL Most recent to 1 oldest [Reference Range]: Creatinine Lvl 1.20 mg/dL [0.50-1.40 mg/dL] (10/07/16 7:42 PM) eGFR 59 mL/min/1.73m2 1 *NA* (10/07/16 7:42 PM) BUN [7-22 mg/dL] 11 mg/dL (10/07/16 7:42 PM) B/C Ratio [6-25] 9 (10/07/16 7:42 PM) Glucose Lvl [70-99 169 mg/dL mg/dL] *HI* (10/07/16 7:42 PM) Total Protein 7.7 g/dL [6.4-8.4 g/dL] (10/07/16 7:42 PM) Albumin Lvl [3.5-5.0 3.5 g/dL g/dL] (10/07/16 7:42 PM) Globulin [2.7-4.2 4.2 g/dL g/dL] (10/07/16 7:42 PM) A/G Ratio [0.7-1.6] 0.8 (10/07/16 7:42 PM) Calcium Lvl 10.2 mg/dL [8.5-10.5 mg/dL] (10/07/16 7:42 PM) ALT [0-65 unit/L] 11 unit/L (10/07/16 7:42 PM) AST [0-37 unit/L] 18 unit/L (10/07/16 7:42 PM) Alk Phos [39-136 103 unit/L unit/L] (10/07/16 7:42 PM) Bili Total [0.2-1.3 0.4 mg/dL mg/dL] (10/07/16 7:42 PM) 1Result Comment: The eGFR is calculated [...] 1 oldest [Reference Range]: Total CK [12-191 495 unit/L unit/L] *HI* (10/07/16 7:42 PM) CK MB [0.5-3.6 3.3 ng/mL ng/mL] (10/07/16 7:42 PM) CK MB Index 0.7 [0.0-2.5] (10/07/16 7:42 PM) Troponin-I <0.02 ng/mL [0.00-0.40 ng/mL] (10/07/16 7:42 PM) DRUG SCREEN Most recent to 1 oldest [Reference Range]: U Amph Scr Negative [Negative] *NA* (10/07/16 7:45 PM) U Danae Scr Negative [Negative] *NA* (10/07/16 7:45 PM) U Benzodia Scr Positive [Negative] *ABN* (10/07/16 7:45 PM) U Cocaine Scr Negative [Negative] *NA* (10/07/16 7:45 PM) U Opiate Scr Positive [Negative] *ABN* (10/07/16 7:45 PM) U Phencyc Scr Negative [Negative] *NA* (10/07/16 7:45 PM) U Cannab Scr Negative [Negative] *NA* (10/07/16 7:45 PM) UDS Note See Note (10/07/16 7:45 PM) TOXICOLOGY Most recent to 1 oldest [Reference Range]: Acetaminoph Lvl <2 [10-20] (10/07/16 7:42 PM) Salicylate Lvl <1.7 mg/dL [0.0-30.0 mg/dL] (10/07/16 7:42 PM) Etoh (%) <.003 % *NA* (10/07/16 7:42 PM) Ethanol Lvl <3 mg/dL *NA* (10/07/16 7:42 PM) URINE AND STOOL Most recent to 1 oldest [Reference Range]: UA Turbidity [Clear] Clear (10/07/16 7:45 PM) UA Color [Yellow] Yellow *NA* (10/07/16 7:45 PM) UA pH [5.0-8.0] 6.0 (10/07/16 7:45 PM) UA Spec Grav 1.015 [<=1.030] (10/07/16 7:45 PM) UA Glucose [Negative Negative mg/dL mg/dL] *NA* (10/07/16 7:45 PM) UA Blood [Negative] Negative (10/07/16 7:45 PM) UA Ketones [Negative Negative mg/dL mg/dL] *NA* (10/07/16 7:45 PM) UA Protein [Negative Negative mg/dL mg/dL] (10/07/16 7:45 PM) UA Urobilinogen <=1.0 mg/dL [0.1-1.0 mg/dL] *NA* (10/07/16 7:45 PM) UA Bili [Negative] Negative *NA* (10/07/16 7:45 PM) UA Leuk Est Negative [Negative] (10/07/16 7:45 PM) UA Nitrite Negative [Negative] (10/07/16 7:45 PM) UA WBC [0-5 /HPF] 2 /HPF (10/07/16 7:45 PM) UA RBC [0-2 /HPF] <1 /HPF (10/07/16 7:45 PM) UA Sq Epi None Seen *NA* (10/07/16 7:45 PM) UA Hyal Cast [0-2 8 /LPF /LPF] *HI* (10/07/16 7:45 PM) UA Renal Epi [<=0 1 /LPF /LPF] *HI* (10/07/16 7:45 PM) UA Mucus [None Seen Few /LPF /LPF] *NA* (10/07/16 7:45 PM) HEMATOLOGY Most recent to 1 oldest [Reference Range]: WBC [3.7-10.4 K/CMM] 11.2 K/CMM *HI* (10/07/16 7:42 PM) RBC [4.70-6.10 4.97 M/CMM M/CMM] (10/07/16 7:42 PM) Hgb [14.0-18.0 g/dL] 14.0 g/dL (10/07/16 7:42 PM) Hct [42.0-54.0 %] 41.8 % *LOW* (10/07/16 7:42 PM) MCV [80.0-94.0 fL] 84.1 fL (10/07/16 7:42 PM) MCH [27.0-31.0 pg] 28.1 pg (10/07/16 7:42 PM) MCHC [32.0-36.0 33.4 g/dL g/dL] (10/07/16 7:42 PM) RDW [11.5-14.5 %] 14.9 % *HI* (10/07/16 7:42 PM) Platelet [133-450 306 K/CMM K/CMM] (10/07/16 7:42 PM) MPV [7.4-10.4 fL] 9.4 fL (10/07/16 7:42 PM) Segs [45.0-75.0 %] 74.7 % (10/07/16 7:42 PM) Lymphocytes 17.8 % [20.0-40.0 %] *LOW* (10/07/16 7:42 PM) Monocytes [2.0-12.0 6.7 % %] (10/07/16 7:42 PM) Eosinophils [0.0-4.0 0.7 % %] (10/07/16 7:42 PM) Basophils [0.0-1.0 0.1 % %] (10/07/16 7:42 PM) Segs-Bands # 8.4 K/CMM [1.5-8.1 K/CMM] *HI* (10/07/16 7:42 PM) Lymphocytes # 2.0 K/CMM [1.0-5.5 K/CMM] (10/07/16 7:42 PM) Monocytes # [0.0-0.8 0.7 K/CMM K/CMM] (10/07/16 7:42 PM) Eosinophils # 0.1 K/CMM [0.0-0.5 K/CMM] (10/07/16 7:42 PM) Immunizations Given and Recorded Vaccine Date Status Refusal Reason Hx influenza vaccine-unspecified1 04/24/14 Given influenza virus vaccine, inactivated 03/17/16 Given influenza virus vaccine, inactivated2 04/24/14 Given pneumococcal 23-valent vaccine3 11/11/13 Given 1Result Comment: done high dose. Migrated from OBS ; Data migrated from [employer] on 07/31/2015. 2Result Comment: fluzone high dose [[id number]]. Migrated from OBS ; Data migrated from [employer] on 07/31/2015. 3Result Comment: pneumovax 23 [[id number]]. Migrated from OBS VIS: Pneumovax 23: 04/03/09 ; Data migrated from [employer] on 07/31/2015. Procedures Procedure Date Related Diagnosis [...] Smoking Cessation Counseling Yes Assessment and Plan No data available for this section
--- OUTSIDE RECORDS SUMMARY | 2018-09-22 06:03 | XMS REPORT ---
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
--- OUTSIDE RECORDS SUMMARY | 2018-09-22 06:03 | XMS REPORT ---
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 Allergies, Adverse Reactions, Alerts This patient has no known allergies or adverse reactions. Medications This patient has no known medications. Results Test Description Test Time Test Comments Text Results Atomic Results Result Comments CREATINE KINASE (CK) 2018-05-04 14:17:00 CREATINE KINASE TOTAL (BEAKER) (test frcf=001) 33 U/L 29-200 LACTATE DEHYDROGENASE (LDH)2018-05-04 14:17:00* Test Item Value Reference Range Comments LACTATE DEHYDROGENASE (BEAKER) (test lgdz=956) 204 U/L 125-220 BILIRUBIN, TOTAL AND [id number] 14:17:00* Test Item Value Reference Range Comments BILIRUBIN TOTAL (BEAKER) (test huhj=842) 0.4 mg/dL 0.2-1.2 BILIRUBIN DIRECT (BEAKER) (test cdlq=066) 0.2 mg/dL 0.1-0.5 COMPREHENSIVE METABOLIC [id number] 14:17:00* Test Item Value Reference Range Comments TOTAL PROTEIN (BEAKER) (test uizf=697) 6.6 gm/dL 6.0-8.3 ALBUMIN (BEAKER) (test vuas=7886) 3.8 g/dL 3.5-5.0 ALKALINE PHOSPHATASE (BEAKER) (test fjhj=064) 76 U/L 40-150 BILIRUBIN TOTAL (BEAKER) (test kzvg=946) 0.4 mg/dL 0.2-1.2 SODIUM (BEAKER) (test tddt=600) 143 meq/L 136-145 POTASSIUM (BEAKER) (test peim=539) 3.3 meq/L 3.5-5.1 CHLORIDE (BEAKER) (test xwvv=648) 107 meq/L 98-107 CO2 (BEAKER) (test ikdr=664) 28 meq/L 22-29 BLOOD UREA NITROGEN (BEAKER) (test nvbf=449) 12 mg/dL 7-21 CREATININE (BEAKER) (test wxmo=863) 0.90 mg/dL 0.57-1.25 GLUCOSE RANDOM (BEAKER) (test xjyp=734) 170 mg/dL 70-105 CALCIUM (BEAKER) (test trcr=537) 9.5 mg/dL 8.4-10.2 AST (SGOT) (BEAKER) (test rnwo=531) 18 U/L 5-34 ALT (SGPT) (BEAKER) (test fdik=780) 13 U/L 6-55 EGFR (BEAKER) (test pohs=9453) 82 mL/min/1.73 sq m ESTIMATED GFR IS NOT ACCURATE CREATININE CLEARANCE IN PREDICTING GLOMERULAR FILTRATION RATE. ESTIMATED GFR IS NOT APPLICABLE FOR DIALYSIS PATIENTS. [id number] 14:07:00* Test Item Value Reference Range Comments PARTIAL THROMBOPLASTIN TIME (BEAKER) (test rqmr=461) 38.9 seconds 22.5-36.0 PROTHROMBIN [id number] 14:06:00* Test Item Value Reference Range Comments PROTIME (BEAKER) (test ejmn=898) 17.7 seconds 11.7-14.7 INR (BEAKER) (test pfkr=676) 1.5 <=5.9 RECOMMENDED COUMADIN/WARFARIN INR THERAPY RANGESSTANDARD DOSE: 2.0 - 3.0 Inclu taylor: PROPHYLAXIS for venous thrombosis, systemic embolization; TREATMENT for mel ous thrombosis and/or pulmonary embolus.HIGH RISK: Target INR is 2.5-3.5 for pat ients with mechanical heart valves.[id number] 14:06:00* Test Item Value Reference Range Comments FIBRINOGEN LEVEL (BEAKER) (test jgxc=284) 277 mg/dl 225-434 CBC W/PLT COUNT & AUTO [id number] 13:54:00* Test Item Value Reference Range Comments WHITE BLOOD CELL COUNT (BEAKER) (test ovxe=825) 7.1 K/ L 3.5-10.5 RED BLOOD CELL COUNT (BEAKER) (test lqaz=842) 3.82 M/ L 4.63-6.08 HEMOGLOBIN (BEAKER) (test xtlz=150) 11.1 GM/DL 13.7-17.5 HEMATOCRIT (BEAKER) (test ncej=158) 35.5 % 40.1-51.0 MEAN CORPUSCULAR VOLUME (BEAKER) (test qdjd=423) 92.9 fL 79.0-92.2 MEAN CORPUSCULAR HEMOGLOBIN (BEAKER) (test liyx=048) 29.1 pg 25.7-32.2 MEAN CORPUSCULAR HEMOGLOBIN CONC (BEAKER) (test gmgx=688) 31.3 GM/DL 32.3-36.5 RED CELL DISTRIBUTION WIDTH (BEAKER) (test kbel=316) 14.6 % 11.6-14.4 PLATELET COUNT (BEAKER) (test qpyd=359) 290 K/CU MM 150-450 MEAN PLATELET VOLUME (BEAKER) (test cjuu=936) 9.9 fL 9.4-12.4 NUCLEATED RED BLOOD CELLS (BEAKER) (test yeeg=648) 0 /100 WBC 0-0 NEUTROPHILS RELATIVE PERCENT (BEAKER) (test hyyd=841) 65 % LYMPHOCYTES RELATIVE PERCENT (BEAKER) (test dxep=097) 25 % MONOCYTES RELATIVE PERCENT (BEAKER) (test atqi=348) 6 % EOSINOPHILS RELATIVE PERCENT (BEAKER) (test gnni=572) 2 % BASOPHILS RELATIVE PERCENT (BEAKER) (test mpoy=497) 0 % NEUTROPHILS ABSOLUTE COUNT (BEAKER) (test zniz=780) 4.66 K/ L 1.78-5.38 LYMPHOCYTES ABSOLUTE COUNT (BEAKER) (test rqsr=303) 1.80 K/ L 1.32-3.57 MONOCYTES ABSOLUTE COUNT (BEAKER) (test xzio=661) 0.44 K/ L 0.30-0.82 EOSINOPHILS ABSOLUTE COUNT (BEAKER) (test kobr=454) 0.17 K/ L 0.04-0.54 BASOPHILS ABSOLUTE COUNT (BEAKER) (test wacs=818) 0.02 K/ L 0.01-0.08 IMMATURE GRANULOCYTES-RELATIVE PERCENT (BEAKER) (test krku=9338) 1 % 0-1 [id number] 06:50:00* Test Item Value Reference Range Comments MAGNESIUM (BEAKER) (test hwvc=699) 2.1 mg/dL 1.6-2.6 Specimen slightly hemolyzed BASIC METABOLIC [id number] 06:50:00* Test Item Value Reference Range Comments SODIUM (BEAKER) (test auui=345) 141 meq/L 136-145 POTASSIUM (BEAKER) (test ujsv=091) 3.7 meq/L 3.5-5.1 Specimen slightly hemolyzed CHLORIDE (BEAKER) (test jeia=054) 109 meq/L 98-107 CO2 (BEAKER) (test vfzf=301) 24 meq/L 22-29 BLOOD UREA NITROGEN (BEAKER) (test gqje=184) 20 mg/dL 7-21 CREATININE (BEAKER) (test cbxv=398) 1.16 mg/dL 0.57-1.25 Specimen slightly hemolyzed GLUCOSE RANDOM (BEAKER) (test ppah=972) 170 mg/dL 70-105 CALCIUM (BEAKER) (test amve=291) 8.7 mg/dL 8.4-10.2 EGFR (BEAKER) (test wcni=4549) 61 mL/min/1.73 sq m ESTIMATED GFR IS NOT ACCURATE CREATININE CLEARANCE IN PREDICTING GLOMERULAR FILTRATION RATE. ESTIMATED GFR IS NOT APPLICABLE FOR DIALYSIS PATIENTS. CBC (HEMOGRAM ONLY)2018-04-30 06:38:00* Test Item Value Reference Range Comments WHITE BLOOD CELL COUNT (BEAKER) (test gbzg=430) 7.6 K/ L 3.5-10.5 RED BLOOD CELL COUNT (BEAKER) (test byuv=286) 4.09 M/ L 4.63-6.08 HEMOGLOBIN (BEAKER) (test ljdm=264) 12.0 GM/DL 13.7-17.5 HEMATOCRIT (BEAKER) (test erpq=472) 40.5 % 40.1-51.0 MEAN CORPUSCULAR VOLUME (BEAKER) (test gttk=134) 99.0 fL 79.0-92.2 Discordant MCV result compared to previous one; Clinical correlation required. MEAN CORPUSCULAR HEMOGLOBIN (BEAKER) (test puus=154) 29.3 pg 25.7-32.2 MEAN CORPUSCULAR HEMOGLOBIN CONC (BEAKER) (test lrfd=110) 29.6 GM/DL 32.3-36.5 RED CELL DISTRIBUTION WIDTH (BEAKER) (test ctao=669) 16.6 % 11.6-14.4 PLATELET COUNT (BEAKER) (test berl=523) 276 K/CU MM 150-450 MEAN PLATELET VOLUME (BEAKER) (test lrsm=438) 10.2 fL 9.4-12.4 NUCLEATED RED BLOOD CELLS (BEAKER) (test lpbs=719) 0 /100 WBC 0-0 RAPID DRUG SCREEN, [id number] 08:34:00* Test Item Value Reference Range Comments BARBITURATE URINE (BEAKER) (test nozw=422) Negative Negative BENZODIAZEPINE SCREEN URINE (BEAKER) (test pcgw=291) Negative Negative COCAINE (METAB.) SCREEN (BEAKER) (test bsvp=9974) Negative Negative METHADONE SCREEN (BEAKER) (test ssfo=1689) Negative Negative OPIATE SCREEN URINE (BEAKER) (test uxyd=378) Negative Negative CANNABINOID SCREEN URINE (BEAKER) (test ftdf=201) Negative Negative AMPH/METHAMPH SCREEN (BEAKER) (test vkkb=1179) Negative Negative PHENCYCLIDINE SCREEN URINE (BEAKER) (test fjnf=784) Negative Negative OXYCODONE SCREEN URINE (BEAKER) (test rtmc=2574) Negative Negative DRUG CUTOFF CONC.Cocaine 300 ng/mL Cannabinoid 50 ng/mL Benzodiazepine 200 ng/mLBarbiturate 200 ng/mLPh encyclidine 25 ng/mLOpiate 300 ng/mLMethadone 300 ng/mLAmphetamine/ 1000 ng/mL MethamphetamineOxycodone 300 ng/mLThis assay provides an unconfirmed qualitative test result for the cli nical management of patients in emergency situations. Chain of custody not maint ained. Some pfyb-bfn-gqmtdvh medications, as well as adulterants, may cause inac curate results. Clinical correlation should be applied. A more comprehensive tad g screen or confirmation of a detected drug may be performed upon request. [id number] 06:39:00* Test Item Value Reference Range Comments MAGNESIUM (BEAKER) (test pukg=875) 2.0 mg/dL 1.6-2.6 Specimen slightly hemolyzed BASIC METABOLIC [id number] 06:39:00* Test Item Value Reference Range Comments SODIUM (BEAKER) (test maxp=965) 140 meq/L 136-145 POTASSIUM (BEAKER) (test qmfs=333) 3.9 meq/L 3.5-5.1 Specimen slightly hemolyzed CHLORIDE (BEAKER) (test utzc=924) 106 meq/L 98-107 CO2 (BEAKER) (test oacy=498) 25 meq/L 22-29 BLOOD UREA NITROGEN (BEAKER) (test lgzl=433) 11 mg/dL 7-21 CREATININE (BEAKER) (test qevc=626) 0.79 mg/dL 0.57-1.25 Specimen slightly hemolyzed GLUCOSE RANDOM (BEAKER) (test xioe=295) 106 mg/dL 70-105 CALCIUM (BEAKER) (test judb=478) 9.1 mg/dL 8.4-10.2 EGFR (BEAKER) (test nbgy=8857) 96 mL/min/1.73 sq m ESTIMATED GFR IS NOT ACCURATE CREATININE CLEARANCE IN PREDICTING GLOMERULAR FILTRATION RATE. ESTIMATED GFR IS NOT APPLICABLE FOR DIALYSIS PATIENTS. LACTIC ACID, VENOUS, WHOLE [id number] 06:21:00* Test Item Value Reference Range Comments LACTATE BLOOD VENOUS (2) (BEAKER) (test zzey=0513) 1.2 mmol/L 0.5-2.2 Specimen slightly hemolyzed Effective 10/31/2015: Units/Reference Range ChangeNew: 0.5-2.2 mmol/L Previous: 5 -20 mg/[id number] 06:07:00* Test Item Value Reference Range Comments HEMOGLOBIN (BEAKER) (test utsy=237) 11.0 GM/DL 13.7-17.5 POST TRANSFUSION REDES PROTOCOLCB (HEMOGRAM ONLY)2018-04-29 06:07:00* Test Item Value Reference Range Comments WHITE BLOOD CELL COUNT (BEAKER) (test ofao=508) 13.0 K/ L 3.5-10.5 RED BLOOD CELL COUNT (BEAKER) (test dqaa=262) 3.76 M/ L 4.63-6.08 HEMOGLOBIN (BEAKER) (test yeoj=102) 11.0 GM/DL 13.7-17.5 HEMATOCRIT (BEAKER) (test cbue=686) 35.5 % 40.1-51.0 MEAN CORPUSCULAR VOLUME (BEAKER) (test tdax=077) 94.4 fL 79.0-92.2 MEAN CORPUSCULAR HEMOGLOBIN (BEAKER) (test eihz=994) 29.3 pg 25.7-32.2 MEAN CORPUSCULAR HEMOGLOBIN CONC (BEAKER) (test fsmw=611) 31.0 GM/DL 32.3-36.5 RED CELL DISTRIBUTION WIDTH (BEAKER) (test qmpa=257) 16.4 % 11.6-14.4 PLATELET COUNT (BEAKER) (test chox=517) 303 K/CU MM 150-450 MEAN PLATELET VOLUME (BEAKER) (test znjx=857) 10.0 fL 9.4-12.4 NUCLEATED RED BLOOD CELLS (BEAKER) (test lzom=835) 0 /100 WBC 0-0 POCT-GLUCOSE [id number] 19:56:00* Test Item Value Reference Range Comments POC-GLUCOSE METER (BEAKER) (test zenr=6375) 148 mg/dL 70-[address] [facility] [address] [facility] [address] CBC (HEMOGRAM ONLY)2018-04-28 07:12:00* Test Item Value Reference Range Comments WHITE BLOOD CELL COUNT (BEAKER) (test wloq=296) 10.1 K/ L 3.5-10.5 RED BLOOD CELL COUNT (BEAKER) (test ckgl=683) 3.40 M/ L 4.63-6.08 HEMOGLOBIN (BEAKER) (test yajx=352) 10.1 GM/DL 13.7-17.5 HEMATOCRIT (BEAKER) (test nbwt=240) 32.6 % 40.1-51.0 MEAN CORPUSCULAR VOLUME (BEAKER) (test cqge=903) 95.9 fL 79.0-92.2 MEAN CORPUSCULAR HEMOGLOBIN (BEAKER) (test lizz=370) 29.7 pg 25.7-32.2 MEAN CORPUSCULAR HEMOGLOBIN CONC (BEAKER) (test njim=474) 31.0 GM/DL 32.3-36.5 RED CELL DISTRIBUTION WIDTH (BEAKER) (test odms=708) 16.9 % 11.6-14.4 PLATELET COUNT (BEAKER) (test gaoo=665) 268 K/CU MM 150-450 MEAN PLATELET VOLUME (BEAKER) (test tovb=032) 9.9 fL 9.4-12.4 NUCLEATED RED BLOOD CELLS (BEAKER) (test bura=409) 0 /100 WBC 0-0 [id number] 07:09:00* Test Item Value Reference Range Comments MAGNESIUM (BEAKER) (test xjjz=548) 1.8 mg/dL 1.6-2.6 BASIC METABOLIC [id number] 07:09:00* Test Item Value Reference Range Comments SODIUM (BEAKER) (test ejyp=800) 145 meq/L 136-145 POTASSIUM (BEAKER) (test xhiq=125) 3.2 meq/L 3.5-5.1 CHLORIDE (BEAKER) (test jzye=087) 110 meq/L 98-107 CO2 (BEAKER) (test zdfw=260) 27 meq/L 22-29 BLOOD UREA NITROGEN (BEAKER) (test vzid=546) 13 mg/dL 7-21 CREATININE (BEAKER) (test hlir=439) 0.77 mg/dL 0.57-1.25 GLUCOSE RANDOM (BEAKER) (test obyq=630) 97 mg/dL 70-105 CALCIUM (BEAKER) (test siom=786) 8.8 mg/dL 8.4-10.2 EGFR (BEAKER) (test szoe=8656) 98 mL/min/1.73 sq m ESTIMATED GFR IS NOT ACCURATE CREATININE CLEARANCE IN PREDICTING GLOMERULAR FILTRATION RATE. ESTIMATED GFR IS NOT APPLICABLE FOR DIALYSIS PATIENTS. HEMOGLOBIN [id number] 15:34:00* Test Item Value Reference Range Comments HEMOGLOBIN A1C (BEAKER) (test fixv=884) 4.5 % 4.3-6.1 CREATINE KINASE (CK)2018-04-27 11:05:00* Test Item Value Reference Range Comments CREATINE KINASE TOTAL (BEAKER) (test xsjf=936) 25 U/L 29-200 LACTATE DEHYDROGENASE (LDH)2018-04-27 11:05:00* Test Item Value Reference Range Comments LACTATE DEHYDROGENASE (BEAKER) (test hnxh=163) 152 U/L 125-220 BILIRUBIN, TOTAL AND [id number] 11:05:00* Test Item Value Reference Range Comments BILIRUBIN TOTAL (BEAKER) (test zhez=558) 0.3 mg/dL 0.2-1.2 BILIRUBIN DIRECT (BEAKER) (test zato=067) 0.2 mg/dL 0.1-0.5 COMPREHENSIVE METABOLIC [id number] 11:05:00* Test Item Value Reference Range Comments TOTAL PROTEIN (BEAKER) (test rzgt=963) 5.6 gm/dL 6.0-8.3 ALBUMIN (BEAKER) (test njci=0525) 3.2 g/dL 3.5-5.0 ALKALINE PHOSPHATASE (BEAKER) (test weqk=611) 74 U/L 40-150 BILIRUBIN TOTAL (BEAKER) (test yput=880) 0.3 mg/dL 0.2-1.2 SODIUM (BEAKER) (test orlt=442) 144 meq/L 136-145 POTASSIUM (BEAKER) (test qcbd=073) 3.3 meq/L 3.5-5.1 CHLORIDE (BEAKER) (test dodd=019) 107 meq/L 98-107 CO2 (BEAKER) (test ysky=024) 31 meq/L 22-29 BLOOD UREA NITROGEN (BEAKER) (test hijk=034) 17 mg/dL 7-21 CREATININE (BEAKER) (test qobx=124) 0.83 mg/dL 0.57-1.25 GLUCOSE RANDOM (BEAKER) (test iikx=627) 115 mg/dL 70-105 CALCIUM (BEAKER) (test hdkm=591) 8.8 mg/dL 8.4-10.2 AST (SGOT) (BEAKER) (test cbgn=866) 17 U/L 5-34 ALT (SGPT) (BEAKER) (test ojqz=320) 17 U/L 6-55 EGFR (BEAKER) (test enwb=1807) 90 mL/min/1.73 sq m ESTIMATED GFR IS NOT ACCURATE CREATININE CLEARANCE IN PREDICTING GLOMERULAR FILTRATION RATE. ESTIMATED GFR IS NOT APPLICABLE FOR DIALYSIS PATIENTS. [id number] 10:45:00* Test Item Value Reference Range Comments FIBRINOGEN LEVEL (BEAKER) (test gcvb=454) 243 mg/dl 225-434 [id number] 10:45:00* Test Item Value Reference Range Comments PARTIAL THROMBOPLASTIN TIME (BEAKER) (test mphh=540) 33.3 seconds 22.5-36.0 PROTHROMBIN TIME/[id number] 10:44:00* Test Item Value Reference Range Comments PROTIME (BEAKER) (test pivl=808) 15.0 seconds 11.7-14.7 INR (BEAKER) (test pubf=904) 1.2 <=5.9 RECOMMENDED COUMADIN/WARFARIN INR THERAPY RANGESSTANDARD DOSE: 2.0 - 3.0 Inclu taylor: PROPHYLAXIS for venous thrombosis, systemic embolization; TREATMENT for mel ous thrombosis and/or pulmonary embolus.HIGH RISK: Target INR is 2.5-3.5 for pat ients with mechanical heart valves.CBC W/PLT COUNT & AUTO [id number] 10:27:00* Test Item Value Reference Range Comments WHITE BLOOD CELL COUNT (BEAKER) (test ghlx=988) 6.1 K/ L 3.5-10.5 RED BLOOD CELL COUNT (BEAKER) (test rydt=914) 2.36 M/ L 4.63-6.08 HEMOGLOBIN (BEAKER) (test txej=849) 6.9 GM/DL 13.7-17.5 HEMATOCRIT (BEAKER) (test vjtw=615) 23.3 % 40.1-51.0 MEAN CORPUSCULAR VOLUME (BEAKER) (test advb=144) 98.7 fL 79.0-92.2 MEAN CORPUSCULAR HEMOGLOBIN (BEAKER) (test erps=860) 29.2 pg 25.7-32.2 MEAN CORPUSCULAR HEMOGLOBIN CONC (BEAKER) (test cpzm=114) 29.6 GM/DL 32.3-36.5 RED CELL DISTRIBUTION WIDTH (BEAKER) (test qrna=697) 17.3 % 11.6-14.4 PLATELET COUNT (BEAKER) (test covh=757) 293 K/CU MM 150-450 MEAN PLATELET VOLUME (BEAKER) (test ghwm=299) 9.8 fL 9.4-12.4 NUCLEATED RED BLOOD CELLS (BEAKER) (test lkhh=145) 0 /100 WBC 0-0 NEUTROPHILS RELATIVE PERCENT (BEAKER) (test fgas=442) 64 % LYMPHOCYTES RELATIVE PERCENT (BEAKER) (test regz=946) 27 % MONOCYTES RELATIVE PERCENT (BEAKER) (test igcd=243) 8 % EOSINOPHILS RELATIVE PERCENT (BEAKER) (test sncx=555) 1 % BASOPHILS RELATIVE PERCENT (BEAKER) (test ktqa=157) 0 % NEUTROPHILS ABSOLUTE COUNT (BEAKER) (test vzhg=918) 3.87 K/ L 1.78-5.38 LYMPHOCYTES ABSOLUTE COUNT (BEAKER) (test jgot=014) 1.61 K/ L 1.32-3.57 MONOCYTES ABSOLUTE COUNT (BEAKER) (test ceom=262) 0.50 K/ L 0.30-0.82 EOSINOPHILS ABSOLUTE COUNT (BEAKER) (test mqfu=334) 0.07 K/ L 0.04-0.54 BASOPHILS ABSOLUTE COUNT (BEAKER) (test qlhi=040) 0.01 K/ L 0.01-0.08 IMMATURE GRANULOCYTES-RELATIVE PERCENT (BEAKER) (test gbig=7515) 0 % 0-1 URINALYSIS W/ REFLEX URINE [id number] 08:50:00* Test Item Value Reference Range Comments COLOR (BEAKER) (test gmbt=274) Yellow CLARITY (BEAKER) (test nukv=023) Clear SPECIFIC GRAVITY UA (BEAKER) (test ccwe=881) 1.017 1.001-1.035 PH UA (BEAKER) (test imld=709) 6.0 5.0-8.0 PROTEIN UA (BEAKER) (test aass=136) Negative Negative GLUCOSE UA (BEAKER) (test sjfe=280) Negative Negative KETONES UA (BEAKER) (test smvb=052) Negative Negative BILIRUBIN UA (BEAKER) (test elat=582) Negative Negative BLOOD UA (BEAKER) (test yosn=840) Negative Negative NITRITE UA (BEAKER) (test idpr=002) Negative Negative LEUKOCYTE ESTERASE UA (BEAKER) (test dmxp=928) Negative Negative UROBILINOGEN UA (BEAKER) (test itbg=764) 0.2 mg/dL 0.2-1.0 RBC UA (BEAKER) (test ztlu=661) 2 /HPF WBC UA (BEAKER) (test hsoj=693) 2 /HPF MUCUS (BEAKER) (test oylq=7258) Rare HYALINE CASTS (BEAKER) (test wdyj=855) 4 /LPF SOURCE(BEAKER) (test qoan=7271) CBC (HEMOGRAM ONLY)2018-04-27 07:38:00* Test Item Value Reference Range Comments WHITE BLOOD CELL COUNT (BEAKER) (test xesw=409) 6.4 K/ L 3.5-10.5 RED BLOOD CELL COUNT (BEAKER) (test rfrp=095) 2.30 M/ L 4.63-6.08 HEMOGLOBIN (BEAKER) (test hfbg=356) 6.6 GM/DL 13.7-17.5 HEMATOCRIT (BEAKER) (test gpoi=823) 22.6 % 40.1-51.0 MEAN CORPUSCULAR VOLUME (BEAKER) (test zdjg=967) 98.3 fL 79.0-92.2 MEAN CORPUSCULAR HEMOGLOBIN (BEAKER) (test bejl=782) 28.7 pg 25.7-32.2 MEAN CORPUSCULAR HEMOGLOBIN CONC (BEAKER) (test cscx=289) 29.2 GM/DL 32.3-36.5 RED CELL DISTRIBUTION WIDTH (BEAKER) (test haaz=793) 17.2 % 11.6-14.4 PLATELET COUNT (BEAKER) (test bjta=103) 302 K/CU MM 150-450 MEAN PLATELET VOLUME (BEAKER) (test kxxf=157) 10.1 fL 9.4-12.4 NUCLEATED RED BLOOD CELLS (BEAKER) (test utho=715) 0 /100 WBC 0-0 [id number] 07:38:00* Test Item Value Reference Range Comments MAGNESIUM (BEAKER) (test xzjp=788) 1.8 mg/dL 1.6-2.6 BASIC METABOLIC [id number] 07:38:00* Test Item Value Reference Range Comments SODIUM (BEAKER) (test pfrh=017) 143 meq/L 136-145 POTASSIUM (BEAKER) (test qupl=883) 3.3 meq/L 3.5-5.1 CHLORIDE (BEAKER) (test hbit=060) 109 meq/L 98-107 CO2 (BEAKER) (test rrsj=561) 30 meq/L 22-29 BLOOD UREA NITROGEN (BEAKER) (test rnom=756) 17 mg/dL 7-21 CREATININE (BEAKER) (test vwmv=416) 0.84 mg/dL 0.57-1.25 GLUCOSE RANDOM (BEAKER) (test tvta=206) 132 mg/dL 70-105 CALCIUM (BEAKER) (test jtuf=267) 8.7 mg/dL 8.4-10.2 EGFR (BEAKER) (test kowt=7640) 89 mL/min/1.73 sq m ESTIMATED GFR IS NOT ACCURATE CREATININE CLEARANCE IN PREDICTING GLOMERULAR FILTRATION RATE. ESTIMATED GFR IS NOT APPLICABLE FOR DIALYSIS PATIENTS. RAD, CHEST, 1 VIEW, NON [id number] 19:02:00Reason for exam:->SEIZURESFINAL REPORT EXAMINATION: AP PORTABLE CHEST RADIOGRAPH CLINICAL INDICATION: Seizure IMPRESSION: Compared with 02/21/2018. A single lead left subclavian cardiac pacing device is redemonstrated. The lead is intact where visible.More conspicuous opacities are noted in both lung bases. The heart is en larged but stable. Mediastinal contours are unchanged. No definite evidence of p ulmonary edema, pleural effusion, pneumothorax or acute osseous abnormality. Opa cities are again noted in the lung bases. A component may reflect atelectasis or scarring given the appearance of the previous exam. However, several of the opa cities have a more conspicuous nodular morphology. Active infection or underlyin g neoplastic process cannot be excluded. Sequela from aspiration would also be i ncluded in the differential diagnosis. Chest CT would be beneficial in further c haracterization of the lung opacities detailed above. Results discussed with Dr. Austin. Signed: Balbina Marcelino MDReport Verified Date/Time: 04/26/2018 19:02:32 Read ing Location: [address] Reading Room TINE KINASE (CK), TOTAL AND MB 2018-04-26 18:16:00* Test Item Value Reference Range Comments CREATINE KINASE TOTAL (BEAKER) (test alhf=213) 32 U/L 29-200 CREATINE KINASE-MB (BEAKER) (test gqhc=070) 1.9 ng/mL 0.0-6.6 CREATINE KINASE-MB INDEX (BEAKER) (test kkgm=004) 5.9 % CK-MB Reference Range:<6.7 Normal6.7-10.0 Borderline>10.0 Abnormal TROPONIN [id number] 18:16:00* Test Item Value Reference Range Comments TROPONIN I (BEAKER) (test gvgy=245) < ng/mL 0.00-0.03 Troponin I (TnI) levels must be interpreted in the context of the presenting sym ptoms and the clinical findings. Elevated TnI levels indicate myocardial damage, but are not specific for ischemic heart disease. Elevated TnI levels are seen in patients with other cardiac conditions (including myocarditis and congestive h eart failure), and slight TnI elevations occur in patients with other conditions , including sepsis, renal failure, acidosis, acute neurological disease, and per sistent tachyarrhythmia.B-TYPE NATRIURETIC FACTOR (BNP)2018-04-26 18:16:00* Test Item Value Reference Range Comments B-TYPE NATRIURETIC PEPTIDE (BEAKER) (test tzej=162) 485 pg/mL 0-100 [id number] 18:09:00* Test Item Value Reference Range Comments MAGNESIUM (BEAKER) (test ajaz=799) 2.0 mg/dL 1.6-2.6 BASIC METABOLIC [id number] 18:09:00* Test Item Value Reference Range Comments SODIUM (BEAKER) (test quiv=164) 142 meq/L 136-145 POTASSIUM (BEAKER) (test xakz=212) 3.8 meq/L 3.5-5.1 CHLORIDE (BEAKER) (test krkk=702) 104 meq/L 98-107 CO2 (BEAKER) (test rhbh=715) 29 meq/L 22-29 BLOOD UREA NITROGEN (BEAKER) (test jkhx=558) 15 mg/dL 7-21 CREATININE (BEAKER) (test bsrl=803) 0.89 mg/dL 0.57-1.25 GLUCOSE RANDOM (BEAKER) (test ocfw=638) 134 mg/dL 70-105 CALCIUM (BEAKER) (test vcsu=082) 9.8 mg/dL 8.4-10.2 EGFR (BEAKER) (test bsek=5852) 83 mL/min/1.73 sq m ESTIMATED GFR IS NOT ACCURATE CREATININE CLEARANCE IN PREDICTING GLOMERULAR FILTRATION RATE. ESTIMATED GFR IS NOT APPLICABLE FOR DIALYSIS PATIENTS. HEPATIC FUNCTION [id number] 18:09:00* Test Item Value Reference Range Comments TOTAL PROTEIN (BEAKER) (test myyq=422) 6.2 gm/dL 6.0-8.3 ALBUMIN (BEAKER) (test szoz=6524) 3.4 g/dL 3.5-5.0 BILIRUBIN TOTAL (BEAKER) (test nuce=286) 0.3 mg/dL 0.2-1.2 BILIRUBIN DIRECT (BEAKER) (test urqq=477) 0.1 mg/dL 0.1-0.5 ALKALINE PHOSPHATASE (BEAKER) (test mwon=827) 79 U/L 40-150 AST (SGOT) (BEAKER) (test sqwc=312) 19 U/L 5-34 ALT (SGPT) (BEAKER) (test tome=325) 18 U/L 6-55 [id number] 18:08:00* Test Item Value Reference Range Comments PROTIME (BEAKER) (test iivg=474) 15.8 seconds 11.7-14.7 INR (BEAKER) (test kxzj=738) 1.3 <=5.9 PARTIAL THROMBOPLASTIN TIME (BEAKER) (test romf=563) 33.6 seconds 22.5-36.0 RECOMMENDED COUMADIN/WARFARIN INR THERAPY RANGESSTANDARD DOSE: 2.0 - 3.0 Inclu taylor: PROPHYLAXIS for venous thrombosis, systemic embolization; TREATMENT for mel ous thrombosis and/or pulmonary embolus.HIGH RISK: Target INR is 2.5-3.5 for pat ients with mechanical heart valves.CBC W/PLT COUNT & AUTO [id number] 17:50:00* Test Item Value Reference Range Comments WHITE BLOOD CELL COUNT (BEAKER) (test wsuo=003) 9.2 K/ L 3.5-10.5 RED BLOOD CELL COUNT (BEAKER) (test yxib=265) 2.94 M/ L 4.63-6.08 HEMOGLOBIN (BEAKER) (test yyuo=745) 8.4 GM/DL 13.7-17.5 HEMATOCRIT (BEAKER) (test pzcg=335) 29.0 % 40.1-51.0 MEAN CORPUSCULAR VOLUME (BEAKER) (test nsuf=468) 98.6 fL 79.0-92.2 MEAN CORPUSCULAR HEMOGLOBIN (BEAKER) (test ohhi=351) 28.6 pg 25.7-32.2 MEAN CORPUSCULAR HEMOGLOBIN CONC (BEAKER) (test cmdg=947) 29.0 GM/DL 32.3-36.5 RED CELL DISTRIBUTION WIDTH (BEAKER) (test neoa=052) 17.1 % 11.6-14.4 PLATELET COUNT (BEAKER) (test rumf=434) 367 K/CU MM 150-450 MEAN PLATELET VOLUME (BEAKER) (test zdoi=848) 9.7 fL 9.4-12.4 NUCLEATED RED BLOOD CELLS (BEAKER) (test heco=492) 0 /100 WBC 0-0 NEUTROPHILS RELATIVE PERCENT (BEAKER) (test afzf=779) 69 % LYMPHOCYTES RELATIVE PERCENT (BEAKER) (test vqtq=037) 21 % MONOCYTES RELATIVE PERCENT (BEAKER) (test qnoh=240) 8 % EOSINOPHILS RELATIVE PERCENT (BEAKER) (test lgzw=261) 1 % BASOPHILS RELATIVE PERCENT (BEAKER) (test jixs=417) 0 % NEUTROPHILS ABSOLUTE COUNT (BEAKER) (test wnwb=679) 6.34 K/ L 1.78-5.38 LYMPHOCYTES ABSOLUTE COUNT (BEAKER) (test maii=501) 1.94 K/ L 1.32-3.57 MONOCYTES ABSOLUTE COUNT (BEAKER) (test cwio=718) 0.73 K/ L 0.30-0.82 EOSINOPHILS ABSOLUTE COUNT (BEAKER) (test qvsa=575) 0.09 K/ L 0.04-0.54 BASOPHILS ABSOLUTE COUNT (BEAKER) (test jihj=064) 0.02 K/ L 0.01-0.08 IMMATURE GRANULOCYTES-RELATIVE PERCENT (BEAKER) (test rtxj=8085) 1 % 0-1 [id number] 14:15:00* Test Item Value Reference Range Comments POC-CREATININE (BEAKER) (test akeu=5779) 0.8 mg/dL 0.6-1.[address] [facility] [address] [facility] [address] POC-EGFR (BEAKER) (test kcbt=6861) 94 mL/min/1.73M2 CT, CTANGIO [id number] 14:13:00FINAL REPORT CTA head and neck with contrast INDICATION: Syncope TECHNIQUE: Axial noncontrast CT images of the head were obtained. Subsequently, axial intravenous contrast enhanced CTA images of the head and neck were obtained. Multiplanar and 3-D volume rendered reconstruction images were generated on a separate workstation for better delineation of the vascular anatomy. This exam was performed according to our departmental dose optimization program which includes automated exposure control, adjustment of the mA and/or kV according to patient size and/or use of iterative reconstruction technique. COMPARISON: CTA head 01/07/2017, catheter angiogram 06/04/2011 FINDINGS: CTA neck:Artifacts from dense right sided venous contrast, a left chest pacing device, and vascular pulsation limit evaluation of the proximal great vessels. There is atherosclerotic plaque in the arch and proximal great vessels. There has been prior right subclavian artery stenting poor opacification of the stented segment suspicious for high- grade stenosis. Left common carotid artery origin in the dominant artery st enoses are poorly depicted due to artifacts. The right common carotid artery sonja gin is obscured. In the remainder of the common carotid arteries, there is right greater than left sided plaque with mild stenosis in the proximal right common carotid artery.. There has been previous left carotid endarterectomy. No measura ble left cervical ICA stenosis is seen by NASCET criteria. Surgical clips adjace nt to the right carotid bifurcation also suggest endarterectomy. Severe right ca rotid bifurcation stenosis is on the order of 90%. There is a tandem 60-70% sten osis at the proximal cervical ICA level. There is severe right external carotid artery origin stenosis. There is severe bilateral vertebral artery origin stenos is. The cervical vertebral arteries are tortuous with mild V2 segment spondyloti c stenoses. CTA head:There is mild to moderate bilateral carotid siphon stenosis and moderate left supraclinoid ICA stenosis. There is moderate to severe left M CA M1 segment stenosis, mild to moderate right MCA M1 segment stenosis, moderate left SEWER BRICKLAYER P1 segment stenosis, and moderate to severe right EULALIA A2 segment steno sis. The right EULALIA A1 segment is hypoplastic or aplastic. The remaining proximal [place] vessels demonstrate no high grade stenosis or major branch occ lusion. No saccular aneurysm is apparent. Other findings:There has been previous dorsal decompression and posterior spinal fusion from C3-C6. Asymmetric lucency along the left sided lateral mass screws suggests loosening. Hardware failure s een on prior CT cervical spine 11/01/2013 is grossly unchanged. Multilevel degener ative spine changes remain present.. There is osseous fusion across the C6-7 and T1-T2 discs and partial osseous fusion at C5-6. There is a 6 mm nodule of the l eft lung apex. Mild emphysematous changes are present. There are dental caries. 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 Microvascular ischemic changes are grossly similar to 02/21/2018 and chronic appearing, with basal ganglia lacu rommel infarcts. No acute hemorrhage or mass effect is evident. Stable ventriculome jaquelin could be ex vacuo. NPH should be excluded clinically. There has been catara ct surgery. IMPRESSION: 1. Substantial artifacts from venous contrast, left ches t pacing device, and vascular pulsation limit assessment of the proximal great v essels. Proximal great vessel stenoses and right subclavian artery in-stent rest enosis is suspected, potentially significant. Chest CTA is suggested for better depiction. 2. Previous bilateral carotid endarterectomy. No evident left ICA silvia nosis by NASCET criteria. Severe right carotid bifurcation stenosis, on the orde r of 90%, and tandem stenosis in the right proximal cervical ICA, the order of 6 0-70%. 3. Severe right external carotid artery origin stenosis. 4. Suspected sev ere bilateral vertebral artery origin stenoses. 5. Multifocal intracranial ather osclerosis with stenoses as discussed, including moderate to severe left MCA M1 segment origin and right EULALIA A2 segment stenoses. No [place] major bran ch occlusion seen. 6. Cervical spine degenerative and postsurgical changes. Appa rent posterior element hardware failure noted on cervical spine CT 11/01/2013 is g rossly unchanged. 7. Left lung apex 6 mm nodule. Advise chest CT follow up. Sign ed: [facility] [place] MDR[facility] Verified Date/Time: 04/16/2018 14:13:47 Readi ng Location: [address] Neuro Reading Room , [place], [id number] 14:13:00 FINAL REPORT CTA head and neck with contrast INDICATION: Syncope TECHNIQUE: Axial noncontrast CT images of the head were obtained. Subseq uently, axial intravenous contrast enhanced CTA images of the head and neck were obtained. Multiplanar and 3-D volume rendered reconstruction images were genera leon on a separate workstation for better delineation of the vascular anatomy. Th is exam was performed according to our departmental dose optimization program wh ich includes automated exposure control, adjustment of the mA and/or kV accordin g to patient size and/or use of iterative reconstruction technique. COMPARISON: CTA head 01/07/2017, catheter angiogram 06/04/2011 FINDINGS: CTA neck:Artifacts fr om dense right sided venous contrast, a left chest pacing device, and vascular p ulsation limit evaluation of the proximal great vessels. There is atheroscleroti c plaque in the arch and proximal great vessels. There has been prior right subc lavian artery stenting poor opacification of the stented segment suspicious for high-grade stenosis. Left common carotid artery origin in the dominant artery st enoses are poorly depicted due to artifacts. The right common carotid artery sonja gin is obscured. In the remainder of the common carotid arteries, there is right greater than left sided plaque with mild stenosis in the proximal right common carotid artery.. There has been previous left carotid endarterectomy. No measura ble left cervical ICA stenosis is seen by NASCET criteria. Surgical clips adjace nt to the right carotid bifurcation also suggest endarterectomy. Severe right ca rotid bifurcation stenosis is on the order of 90%. There is a tandem 60-70% sten osis at the proximal cervical ICA level. There is severe right external carotid artery origin stenosis. There is severe bilateral vertebral artery origin stenos is. The cervical vertebral arteries are tortuous with mild V2 segment spondyloti c stenoses. CTA head:There is mild to moderate bilateral carotid siphon stenosis and moderate left supraclinoid ICA stenosis. There is moderate to severe left M CA M1 segment stenosis, mild to moderate right MCA M1 segment stenosis, moderate left SEWER BRICKLAYER P1 segment stenosis, and moderate to severe right EULALIA A2 segment steno sis. The right EULALIA A1 segment is hypoplastic or aplastic. The remaining proximal [place] vessels demonstrate no high grade stenosis or major branch occ lusion. No saccular aneurysm is apparent. Other findings:There has been previous dorsal decompression and posterior spinal fusion from C3-C6. Asymmetric lucency along the left sided lateral mass screws suggests loosening. Hardware failure s een on prior CT cervical spine 11/01/2013 is grossly unchanged. Multilevel degener ative spine changes remain present.. There is osseous fusion across the C6-7 and T1-T2 discs and partial osseous fusion at C5-6. There is a 6 mm nodule of the l eft lung apex. Mild emphysematous changes are present. There are dental caries. 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 Microvascular ischemic changes are grossly similar to 02/21/2018 and chronic appearing, with basal ganglia lacu rommel infarcts. No acute hemorrhage or mass effect is evident. Stable ventriculome jaquelin could be ex vacuo. NPH should be excluded clinically. There has been catara ct surgery. IMPRESSION: 1. Substantial artifacts from venous contrast, left ches t pacing device, and vascular pulsation limit assessment of the proximal great v essels. Proximal great vessel stenoses and right subclavian artery in-stent rest enosis is suspected, potentially significant. Chest CTA is suggested for better depiction. 2. Previous bilateral carotid endarterectomy. No evident left ICA silvia nosis by NASCET criteria. Severe right carotid bifurcation stenosis, on the orde r of 90%, and tandem stenosis in the right proximal cervical ICA, the order of 6 0-70%. 3. Severe right external carotid artery origin stenosis. 4. Suspected sev ere bilateral vertebral artery origin stenoses. 5. Multifocal intracranial ather osclerosis with stenoses as discussed, including moderate to severe left MCA M1 segment origin and right EULALIA A2 segment stenoses. No [place] of [place] major bran ch occlusion seen. 6. Cervical spine degenerative and postsurgical changes. Appa rent posterior element hardware failure noted on cervical spine CT 11/01/2013 is g rossly unchanged. 7. Left lung apex 6 mm nodule. Advise chest CT follow up. Sign ed: [facility] [place] [employer] Verified Date/Time: 04/16/2018 14:13:47 Readi duglas Location: [address] Neuro Reading Room D [id number] 18:00:00* Test Item Value Reference Range Comments CULTURE (BEAKER) (test iylg=0681) No growth in 5 days BLOOD [id number] 18:00:00* Test Item Value Reference Range Comments CULTURE (BEAKER) (test kwvs=4497) No growth in 5 days BASIC METABOLIC [id number] 05:30:00* Test Item Value Reference Range Comments SODIUM (BEAKER) (test qiur=549) 141 meq/L 136-145 POTASSIUM (BEAKER) (test qknk=920) 4.0 meq/L 3.5-5.1 CHLORIDE (BEAKER) (test vpne=872) 106 meq/L 98-107 CO2 (BEAKER) (test wxsd=908) 27 meq/L 22-29 BLOOD UREA NITROGEN (BEAKER) (test iktp=684) 20 mg/dL 7-21 CREATININE (BEAKER) (test haif=125) 1.15 mg/dL 0.57-1.25 GLUCOSE RANDOM (BEAKER) (test mbxt=158) 116 mg/dL 70-105 CALCIUM (BEAKER) (test jssw=525) 9.6 mg/dL 8.4-10.2 EGFR (BEAKER) (test ainj=8762) 62 mL/min/1.73 sq m ESTIMATED GFR IS NOT ACCURATE CREATININE CLEARANCE IN PREDICTING GLOMERULAR FILTRATION RATE. ESTIMATED GFR IS NOT APPLICABLE FOR DIALYSIS PATIENTS. CBC (HEMOGRAM ONLY)2018-02-24 05:12:00* Test Item Value Reference Range Comments WHITE BLOOD CELL COUNT (BEAKER) (test gzej=461) 8.8 K/ L 3.5-10.5 RED BLOOD CELL COUNT (BEAKER) (test izcy=203) 3.83 M/ L 4.63-6.08 HEMOGLOBIN (BEAKER) (test sper=960) 11.4 GM/DL 13.7-17.5 HEMATOCRIT (BEAKER) (test bxeu=812) 36.1 % 40.1-51.0 MEAN CORPUSCULAR VOLUME (BEAKER) (test fcww=163) 94.3 fL 79.0-92.2 MEAN CORPUSCULAR HEMOGLOBIN (BEAKER) (test gzmg=835) 29.8 pg 25.7-32.2 MEAN CORPUSCULAR HEMOGLOBIN CONC (BEAKER) (test tmqm=388) 31.6 GM/DL 32.3-36.5 RED CELL DISTRIBUTION WIDTH (BEAKER) (test bxek=637) 13.1 % 11.6-14.4 PLATELET COUNT (BEAKER) (test kmzc=356) 204 K/CU MM 150-450 MEAN PLATELET VOLUME (BEAKER) (test vvny=497) 10.8 fL 9.4-12.4 NUCLEATED RED BLOOD CELLS (BEAKER) (test oxzs=553) 0 /100 WBC 0-0 VANCOMYCIN LEVEL, [id number] 21:12:00* Test Item Value Reference Range Comments VANCOMYCIN TROUGH (BEAKER) (test hjtr=277) 15.4 ug/mL 10.0-20.0 BASIC METABOLIC [id number] 05:50:00* Test Item Value Reference Range Comments SODIUM (BEAKER) (test xxgi=899) 141 meq/L 136-145 POTASSIUM (BEAKER) (test wdvc=259) 4.1 meq/L 3.5-5.1 CHLORIDE (BEAKER) (test oydj=045) 107 meq/L 98-107 CO2 (BEAKER) (test ykii=435) 26 meq/L 22-29 BLOOD UREA NITROGEN (BEAKER) (test igqe=153) 15 mg/dL 7-21 CREATININE (BEAKER) (test kasp=632) 0.99 mg/dL 0.57-1.25 GLUCOSE RANDOM (BEAKER) (test wroi=508) 125 mg/dL 70-105 CALCIUM (BEAKER) (test zkew=487) 9.2 mg/dL 8.4-10.2 EGFR (BEAKER) (test tfdx=7588) 74 mL/min/1.73 sq m ESTIMATED GFR IS NOT ACCURATE CREATININE CLEARANCE IN PREDICTING GLOMERULAR FILTRATION RATE. ESTIMATED GFR IS NOT APPLICABLE FOR DIALYSIS PATIENTS. CBC (HEMOGRAM ONLY)2018-02-23 05:05:00* Test Item Value Reference Range Comments WHITE BLOOD CELL COUNT (BEAKER) (test apds=413) 8.6 K/ L 3.5-10.5 RED BLOOD CELL COUNT (BEAKER) (test mwmx=317) 4.33 M/ L 4.63-6.08 HEMOGLOBIN (BEAKER) (test lyfj=169) 12.7 GM/DL 13.7-17.5 HEMATOCRIT (BEAKER) (test ifab=595) 40.3 % 40.1-51.0 MEAN CORPUSCULAR VOLUME (BEAKER) (test dosl=652) 93.1 fL 79.0-92.2 MEAN CORPUSCULAR HEMOGLOBIN (BEAKER) (test ktti=088) 29.3 pg 25.7-32.2 MEAN CORPUSCULAR HEMOGLOBIN CONC (BEAKER) (test pskn=007) 31.5 GM/DL 32.3-36.5 RED CELL DISTRIBUTION WIDTH (BEAKER) (test vyrf=289) 13.1 % 11.6-14.4 PLATELET COUNT (BEAKER) (test oims=969) 228 K/CU MM 150-450 MEAN PLATELET VOLUME (BEAKER) (test yrxb=030) 10.8 fL 9.4-12.4 NUCLEATED RED BLOOD CELLS (BEAKER) (test mpyq=314) 0 /100 WBC 0-0 TROPONIN [id number] 06:33:00* Test Item Value Reference Range Comments TROPONIN I (BEAKER) (test ywpc=876) 0.04 ng/mL 0.00-0.03 Troponin I (TnI) levels must be interpreted in the context of the presenting sym ptoms and the clinical findings. Elevated TnI levels indicate myocardial damage, but are not specific for ischemic heart disease. Elevated TnI levels are seen in patients with other cardiac conditions (including myocarditis and congestive h eart failure), and slight TnI elevations occur in patients with other conditions , including sepsis, renal failure, acidosis, acute neurological disease, and per sistent tachyarrhythmia.BASIC METABOLIC [id number] 06:26:00* Test Item Value Reference Range Comments SODIUM (BEAKER) (test njqi=881) 138 meq/L 136-145 POTASSIUM (BEAKER) (test cpep=157) 4.0 meq/L 3.5-5.1 CHLORIDE (BEAKER) (test fohz=938) 103 meq/L 98-107 CO2 (BEAKER) (test tees=557) 29 meq/L 22-29 BLOOD UREA NITROGEN (BEAKER) (test kclm=332) 12 mg/dL 7-21 CREATININE (BEAKER) (test duoe=066) 0.84 mg/dL 0.57-1.25 GLUCOSE RANDOM (BEAKER) (test itgz=438) 147 mg/dL 70-105 CALCIUM (BEAKER) (test jhue=119) 9.2 mg/dL 8.4-10.2 EGFR (BEAKER) (test gkfp=5311) 89 mL/min/1.73 sq m ESTIMATED GFR IS NOT ACCURATE CREATININE CLEARANCE IN PREDICTING GLOMERULAR FILTRATION RATE. ESTIMATED GFR IS NOT APPLICABLE FOR DIALYSIS PATIENTS. CBC (HEMOGRAM ONLY)2018-02-22 05:58:00* Test Item Value Reference Range Comments WHITE BLOOD CELL COUNT (BEAKER) (test lwxq=218) 11.7 K/ L 3.5-10.5 RED BLOOD CELL COUNT (BEAKER) (test oret=088) 3.96 M/ L 4.63-6.08 HEMOGLOBIN (BEAKER) (test mvdf=495) 11.7 GM/DL 13.7-17.5 HEMATOCRIT (BEAKER) (test qdzb=844) 36.6 % 40.1-51.0 MEAN CORPUSCULAR VOLUME (BEAKER) (test ovis=665) 92.4 fL 79.0-92.2 MEAN CORPUSCULAR HEMOGLOBIN (BEAKER) (test kzzv=949) 29.5 pg 25.7-32.2 MEAN CORPUSCULAR HEMOGLOBIN CONC (BEAKER) (test vsqd=275) 32.0 GM/DL 32.3-36.5 RED CELL DISTRIBUTION WIDTH (BEAKER) (test bxit=321) 12.9 % 11.6-14.4 PLATELET COUNT (BEAKER) (test rukw=268) 204 K/CU MM 150-450 MEAN PLATELET VOLUME (BEAKER) (test zhht=323) 11.1 fL 9.4-12.4 NUCLEATED RED BLOOD CELLS (BEAKER) (test slbg=958) 0 /100 WBC 0-0 TROPONIN [id number] 00:41:00* Test Item Value Reference Range Comments TROPONIN I (BEAKER) (test ofrk=536) 0.04 ng/mL 0.00-0.03 Troponin I (TnI) levels must be interpreted in the context of the presenting sym ptoms and the clinical findings. Elevated TnI levels indicate myocardial damage, but are not specific for ischemic heart disease. Elevated TnI levels are seen in patients with other cardiac conditions (including myocarditis and congestive h eart failure), and slight TnI elevations occur in patients with other conditions , including sepsis, renal failure, acidosis, acute neurological disease, and per sistent tachyarrhythmia.CT, BRAIN, WITHOUT [id number] 16:00:00Reason for exam:->headacheWhat is the patient's sedation requirement?->No SedationFINAL REPORT CT head without contrast. Reason for exam: headacheweakness Comparisons: January 24, 2018 Discussion: Multiple axial CT images of the head are provided without contrast evaluated in brain and bone windows. This exam was performed according to our departmental dose optimization program which includes automated exposure control, adjustment of the mA and/or kV accord ing to patient's size and/or use of iterative reconstructive technique. There i s age related generalized brain volume loss. Nonspecific scattered supratentoria l white matter hypodensity most likely reflects chronic small vessel ischemic di sease. There is a tiny old infarct in the left cerebellum. No evidence of acute territorial infarct. Intracranial vascular calcifications are present. There is no CT evidence of intracranial hemorrhage, mass-effect, hydrocephalus, shift, or extra-axial collections. The visualized orbital contents, bones and surrounding soft tissues are unremarkable. The visualized paranasal sinuses and mastoid air cells are unremarkable. Impressions: No CT evidence of acute intracranial pro cess. Involutional, and chronic microvascular ischemic changes. Findings discus sed with Dr. Miller at 2:30 PM, February 21, 2018. Signed: Ketan Montero [facility] ed Date/Time: 02/21/2018 16:00:11 Reading Location: [facility] C013V Neuro Reading Room ALYSIS W/ [id number] 14:27:00* Test Item Value Reference Range Comments COLOR (BEAKER) (test kecw=317) Yellow CLARITY (BEAKER) (test ucdq=843) Clear SPECIFIC GRAVITY UA (BEAKER) (test eksv=309) 1.013 1.001-1.035 PH UA (BEAKER) (test hspf=825) 7.5 5.0-8.0 PROTEIN UA (BEAKER) (test iufk=487) Negative Negative GLUCOSE UA (BEAKER) (test wlrr=796) Negative Negative KETONES UA (BEAKER) (test imfq=285) Negative Negative BILIRUBIN UA (BEAKER) (test oxlf=128) Negative Negative BLOOD UA (BEAKER) (test pbvw=748) Negative Negative NITRITE UA (BEAKER) (test batq=827) Negative Negative LEUKOCYTE ESTERASE UA (BEAKER) (test sglh=953) Negative Negative UROBILINOGEN UA (BEAKER) (test zait=220) 0.2 mg/dL 0.2-1.0 RBC UA (BEAKER) (test yhyi=791) < /HPF WBC UA (BEAKER) (test fmth=708) < /HPF HYALINE CASTS (BEAKER) (test hjia=652) 2 /LPF SOURCE(BEAKER) (test sqqu=2115) Urine, Voided CREATINE KINASE (CK), TOTAL AND [id number] 12:59:00* Test Item Value Reference Range Comments CREATINE KINASE TOTAL (BEAKER) (test dfua=043) 432 U/L 29-200 CREATINE KINASE-MB (BEAKER) (test zcay=000) 3.2 ng/mL 0.0-6.6 CREATINE KINASE-MB INDEX (BEAKER) (test olow=528) 0.7 % CK-MB Reference Range:<6.7 Normal6.7-10.0 Borderline>10.0 Abnormal TROPONIN [id number] 12:59:00* Test Item Value Reference Range Comments TROPONIN I (BEAKER) (test okuj=914) 0.04 ng/mL 0.00-0.03 Troponin I (TnI) levels must be interpreted in the context of the presenting sym ptoms and the clinical findings. Elevated TnI levels indicate myocardial damage, but are not specific for ischemic heart disease. Elevated TnI levels are seen in patients with other cardiac conditions (including myocarditis and congestive h eart failure), and slight TnI elevations occur in patients with other conditions , including sepsis, renal failure, acidosis, acute neurological disease, and per sistent tachyarrhythmia.BASIC METABOLIC [id number] 12:53:00* Test Item Value Reference Range Comments SODIUM (BEAKER) (test gltk=595) 136 meq/L 136-145 POTASSIUM (BEAKER) (test xotm=188) 4.0 meq/L 3.5-5.1 CHLORIDE (BEAKER) (test pepd=169) 101 meq/L 98-107 CO2 (BEAKER) (test pwsl=126) 26 meq/L 22-29 BLOOD UREA NITROGEN (BEAKER) (test auan=057) 14 mg/dL 7-21 CREATININE (BEAKER) (test wssc=555) 0.95 mg/dL 0.57-1.25 GLUCOSE RANDOM (BEAKER) (test ktqu=362) 151 mg/dL 70-105 CALCIUM (BEAKER) (test ojzi=062) 9.3 mg/dL 8.4-10.2 EGFR (BEAKER) (test oxfk=5124) 77 mL/min/1.73 sq m ESTIMATED GFR IS NOT ACCURATE CREATININE CLEARANCE IN PREDICTING GLOMERULAR FILTRATION RATE. ESTIMATED GFR IS NOT APPLICABLE FOR DIALYSIS PATIENTS. RAD, CHEST, 1 VIEW, NON [id number] 12:33:00Reason for exam:->CHEST PAINShould this be performed at the bedside?->YesFINAL REPORT INDICATION: CHEST PAIN TECHNIQUE: Chest radiograph, single view, portable technique. FINDINGS / IMPRESSION: There is a patchy opacity in the left lower lobe, favor pneumonia or aspiration over atelectasis. Calcified plaque in the aortic arch and right innominate stent noted. Heart shadow normal in size with single lead left subclavian pacemaker. No pulmonary venous congestion or edema. No pneumothorax. Lower cervical fusion hardware and surgical hardware fragment in the left humeral head. Signed: Boyd Crocker MDReport Verified Date/Time: 02/21/2018 12:33:38 Reading Location: [facility] C013W Consult Reading Room W/PLT COUNT & AUTO [id number] 12:23:00* Test Item Value Reference Range Comments WHITE BLOOD CELL COUNT (BEAKER) (test ropn=307) 12.3 K/ L 3.5-10.5 RED BLOOD CELL COUNT (BEAKER) (test jalh=972) 4.12 M/ L 4.63-6.08 HEMOGLOBIN (BEAKER) (test xddx=746) 12.4 GM/DL 13.7-17.5 HEMATOCRIT (BEAKER) (test izrz=104) 37.9 % 40.1-51.0 MEAN CORPUSCULAR VOLUME (BEAKER) (test yxym=642) 92.0 fL 79.0-92.2 MEAN CORPUSCULAR HEMOGLOBIN (BEAKER) (test wotk=810) 30.1 pg 25.7-32.2 MEAN CORPUSCULAR HEMOGLOBIN CONC (BEAKER) (test pgox=986) 32.7 GM/DL 32.3-36.5 RED CELL DISTRIBUTION WIDTH (BEAKER) (test vdbb=854) 13.0 % 11.6-14.4 PLATELET COUNT (BEAKER) (test irpt=345) 244 K/CU MM 150-450 MEAN PLATELET VOLUME (BEAKER) (test pvgd=665) 10.9 fL 9.4-12.4 NUCLEATED RED BLOOD CELLS (BEAKER) (test dwwg=277) 0 /100 WBC 0-0 NEUTROPHILS RELATIVE PERCENT (BEAKER) (test znfl=721) 81 % LYMPHOCYTES RELATIVE PERCENT (BEAKER) (test vlyi=959) 9 % MONOCYTES RELATIVE PERCENT (BEAKER) (test nvpb=655) 9 % EOSINOPHILS RELATIVE PERCENT (BEAKER) (test rosb=118) 0 % BASOPHILS RELATIVE PERCENT (BEAKER) (test fqds=485) 0 % NEUTROPHILS ABSOLUTE COUNT (BEAKER) (test jxjm=226) 9.96 K/ L 1.78-5.38 LYMPHOCYTES ABSOLUTE COUNT (BEAKER) (test cylz=202) 1.14 K/ L 1.32-3.57 MONOCYTES ABSOLUTE COUNT (BEAKER) (test vppp=853) 1.15 K/ L 0.30-0.82 EOSINOPHILS ABSOLUTE COUNT (BEAKER) (test qmzp=582) 0.01 K/ L 0.04-0.54 BASOPHILS ABSOLUTE COUNT (BEAKER) (test nkvc=674) 0.02 K/ L 0.01-0.08 IMMATURE GRANULOCYTES-RELATIVE PERCENT (BEAKER) (test qwod=5765) 1 % 0-1 POCT-LACTIC ACID, [id number] 12:19:00* Test Item Value Reference Range Comments POC-LACTIC ACID, VENOUS (BEAKER) (test amzr=4355) 1.4 mmol/L 0.9-1.7 TESTED AT [place] [address] BLOOD [id number] 01:00:00* Test Item Value Reference Range Comments CULTURE (BEAKER) (test ofbl=5875) No growth in 5 days BLOOD [id number] 01:00:00* Test Item Value Reference Range Comments CULTURE (BEAKER) (test bnga=4194) No growth in 5 days POCT-GLUCOSE [id number] 10:57:00* Test Item Value Reference Range Comments POC-GLUCOSE METER (BEAKER) (test cdyp=5617) 121 mg/dL 70-110 TESTED AT [place] [address] POCT-GLUCOSE [id number] 07:25:00* Test Item Value Reference Range Comments POC-GLUCOSE METER (BEAKER) (test xxke=3974) 89 mg/dL 70-110 TESTED AT [place] [address] [id number] 06:43:00* Test Item Value Reference Range Comments MAGNESIUM (BEAKER) (test ssdl=732) 1.9 mg/dL 1.6-2.6 BASIC METABOLIC [id number] 06:43:00* Test Item Value Reference Range Comments SODIUM (BEAKER) (test fqma=047) 141 meq/L 136-145 POTASSIUM (BEAKER) (test otex=157) 4.1 meq/L 3.5-5.1 CHLORIDE (BEAKER) (test ifpy=216) 102 meq/L 98-107 CO2 (BEAKER) (test jofp=651) 31 meq/L 22-29 BLOOD UREA NITROGEN (BEAKER) (test onap=941) 24 mg/dL 7-21 CREATININE (BEAKER) (test wkjr=074) 0.94 mg/dL 0.57-1.25 GLUCOSE RANDOM (BEAKER) (test bfgm=371) 86 mg/dL 70-105 CALCIUM (BEAKER) (test egiy=342) 9.8 mg/dL 8.4-10.2 EGFR (BEAKER) (test pgwm=2079) 78 mL/min/1.73 sq m ESTIMATED GFR IS NOT ACCURATE CREATININE CLEARANCE IN PREDICTING GLOMERULAR FILTRATION RATE. ESTIMATED GFR IS NOT APPLICABLE FOR DIALYSIS PATIENTS. CBC W/PLT COUNT & AUTO [id number] 06:16:00* Test Item Value Reference Range Comments WHITE BLOOD CELL COUNT (BEAKER) (test ejdq=981) 14.2 K/ L 3.5-10.5 RED BLOOD CELL COUNT (BEAKER) (test zpxm=489) 4.36 M/ L 4.63-6.08 HEMOGLOBIN (BEAKER) (test yfqc=267) 13.2 GM/DL 13.7-17.5 HEMATOCRIT (BEAKER) (test ijnt=792) 40.7 % 40.1-51.0 MEAN CORPUSCULAR VOLUME (BEAKER) (test voqs=197) 93.3 fL 79.0-92.2 MEAN CORPUSCULAR HEMOGLOBIN (BEAKER) (test umpt=584) 30.3 pg 25.7-32.2 MEAN CORPUSCULAR HEMOGLOBIN CONC (BEAKER) (test aora=194) 32.4 GM/DL 32.3-36.5 RED CELL DISTRIBUTION WIDTH (BEAKER) (test vnoq=165) 12.5 % 11.6-14.4 PLATELET COUNT (BEAKER) (test shgn=917) 260 K/CU MM 150-450 MEAN PLATELET VOLUME (BEAKER) (test bmrb=192) 10.3 fL 9.4-12.4 NUCLEATED RED BLOOD CELLS (BEAKER) (test fcvk=863) 0 /100 WBC 0-0 NEUTROPHILS RELATIVE PERCENT (BEAKER) (test idoa=071) 70 % LYMPHOCYTES RELATIVE PERCENT (BEAKER) (test hezx=525) 18 % MONOCYTES RELATIVE PERCENT (BEAKER) (test mdgq=434) 6 % EOSINOPHILS RELATIVE PERCENT (BEAKER) (test knxx=269) 1 % BASOPHILS RELATIVE PERCENT (BEAKER) (test zydy=790) 1 % NEUTROPHILS ABSOLUTE COUNT (BEAKER) (test ruia=218) 9.90 K/ L 1.78-5.38 LYMPHOCYTES ABSOLUTE COUNT (BEAKER) (test coul=384) 2.56 K/ L 1.32-3.57 MONOCYTES ABSOLUTE COUNT (BEAKER) (test qdyl=888) 0.88 K/ L 0.30-0.82 EOSINOPHILS ABSOLUTE COUNT (BEAKER) (test xvcu=035) 0.13 K/ L 0.04-0.54 BASOPHILS ABSOLUTE COUNT (BEAKER) (test tfyw=708) 0.07 K/ L 0.01-0.08 IMMATURE GRANULOCYTES-RELATIVE PERCENT (BEAKER) (test livc=5109) 4 % 0-1 BLOOD [id number] 06:00:00* Test Item Value Reference Range Comments CULTURE (BEAKER) (test uegv=2323) No growth in 5 days BLOOD [id number] 06:00:00* Test Item Value Reference Range Comments CULTURE (BEAKER) (test kbcl=6171) No growth in 5 days POCT-GLUCOSE [id number] 21:43:00* Test Item Value Reference Range Comments POC-GLUCOSE METER (BEAKER) (test heaq=4561) 181 mg/dL 70-110 TESTED AT [place] [id number] [facility] [address] POCT-GLUCOSE [id number] 17:17:00* Test Item Value Reference Range Comments POC-GLUCOSE METER (BEAKER) (test oolu=1622) 156 mg/dL 70-110 TESTED AT [address] [address] BASIC METABOLIC [id number] 16:04:00* Test Item Value Reference Range Comments SODIUM (BEAKER) (test gmqp=529) 138 meq/L 136-145 POTASSIUM (BEAKER) (test zjjd=530) 4.4 meq/L 3.5-5.1 CHLORIDE (BEAKER) (test eoop=550) 98 meq/L 98-107 CO2 (BEAKER) (test syrb=147) 29 meq/L 22-29 BLOOD UREA NITROGEN (BEAKER) (test bwmy=739) 31 mg/dL 7-21 CREATININE (BEAKER) (test owmv=094) 1.15 mg/dL 0.57-1.25 GLUCOSE RANDOM (BEAKER) (test uauo=807) 193 mg/dL 70-105 CALCIUM (BEAKER) (test mjab=547) 10.2 mg/dL 8.4-10.2 EGFR (BEAKER) (test xrnu=0957) 62 mL/min/1.73 sq m ESTIMATED GFR IS NOT ACCURATE CREATININE CLEARANCE IN PREDICTING GLOMERULAR FILTRATION RATE. ESTIMATED GFR IS NOT APPLICABLE FOR DIALYSIS PATIENTS. POCT-GLUCOSE [id number] 12:40:00* Test Item Value Reference Range Comments POC-GLUCOSE METER (BEAKER) (test lmsj=0560) 129 mg/dL 70-110 TESTED AT [place] [address] RAD, CHEST, 1 VIEW, NON [id number] 11:02:00Reason for exam:->chfShould this be performed at the bedside?->YesFINAL REPORT Chest one view INDICATION: CHF COMPARISON: 01/25/2018 IMPRESSION: ET and NG tube have been removed. A left chest pacemaker is again noted. The cardiac silhouette is enlarged. Interstitial pulmonary edema has regressed. Mild basilar opacities suggest atelectasis with a possible trace left pleural effusion. Pneumonitis should be excluded clinically. The bones appear unchanged. No pneumothorax is seen. Signed: Shaw Orlando MDReport Verified Date/Time: 01/28/2018 11:02:34 Reading Location: [facility] Radiology Reading Room -GLUCOSE METER 2018-01-28 08:15:00* Test Item Value Reference Range Comments POC-GLUCOSE METER (BEAKER) (test viqj=7686) 108 mg/dL 70-110 TESTED AT [address] [address] [id number] 05:00:00* Test Item Value Reference Range Comments MAGNESIUM (BEAKER) (test ntgg=706) 2.0 mg/dL 1.6-2.6 BASIC METABOLIC [id number] 05:00:00* Test Item Value Reference Range Comments SODIUM (BEAKER) (test ydpt=777) 136 meq/L 136-145 POTASSIUM (BEAKER) (test sbcd=057) 3.8 meq/L 3.5-5.1 CHLORIDE (BEAKER) (test dqqn=659) 98 meq/L 98-107 CO2 (BEAKER) (test kbfk=141) 32 meq/L 22-29 BLOOD UREA NITROGEN (BEAKER) (test cdsy=463) 32 mg/dL 7-21 CREATININE (BEAKER) (test msvb=216) 1.05 mg/dL 0.57-1.25 GLUCOSE RANDOM (BEAKER) (test niui=170) 115 mg/dL 70-105 CALCIUM (BEAKER) (test fnkr=625) 10.0 mg/dL 8.4-10.2 EGFR (BEAKER) (test csqb=3384) 69 mL/min/1.73 sq m ESTIMATED GFR IS NOT ACCURATE CREATININE CLEARANCE IN PREDICTING GLOMERULAR FILTRATION RATE. ESTIMATED GFR IS NOT APPLICABLE FOR DIALYSIS PATIENTS. CBC W/PLT COUNT & AUTO [id number] 04:35:00* Test Item Value Reference Range Comments WHITE BLOOD CELL COUNT (BEAKER) (test rfmj=220) 12.6 K/ L 3.5-10.5 RED BLOOD CELL COUNT (BEAKER) (test srwr=223) 4.11 M/ L 4.63-6.08 HEMOGLOBIN (BEAKER) (test oyvk=901) 12.2 GM/DL 13.7-17.5 HEMATOCRIT (BEAKER) (test frps=102) 37.6 % 40.1-51.0 MEAN CORPUSCULAR VOLUME (BEAKER) (test bxog=139) 91.5 fL 79.0-92.2 MEAN CORPUSCULAR HEMOGLOBIN (BEAKER) (test hevc=746) 29.7 pg 25.7-32.2 MEAN CORPUSCULAR HEMOGLOBIN CONC (BEAKER) (test ccee=797) 32.4 GM/DL 32.3-36.5 RED CELL DISTRIBUTION WIDTH (BEAKER) (test wpde=991) 12.4 % 11.6-14.4 PLATELET COUNT (BEAKER) (test uyjl=441) 259 K/CU MM 150-450 MEAN PLATELET VOLUME (BEAKER) (test bzdb=059) 10.5 fL 9.4-12.4 NUCLEATED RED BLOOD CELLS (BEAKER) (test kgjz=306) 0 /100 WBC 0-0 NEUTROPHILS RELATIVE PERCENT (BEAKER) (test mgeu=517) 75 % LYMPHOCYTES RELATIVE PERCENT (BEAKER) (test kray=495) 12 % MONOCYTES RELATIVE PERCENT (BEAKER) (test hjbg=431) 8 % EOSINOPHILS RELATIVE PERCENT (BEAKER) (test fskn=807) 0 % BASOPHILS RELATIVE PERCENT (BEAKER) (test pumj=393) 1 % NEUTROPHILS ABSOLUTE COUNT (BEAKER) (test wfmb=961) 9.48 K/ L 1.78-5.38 LYMPHOCYTES ABSOLUTE COUNT (BEAKER) (test lymn=711) 1.46 K/ L 1.32-3.57 MONOCYTES ABSOLUTE COUNT (BEAKER) (test ectr=830) 1.00 K/ L 0.30-0.82 EOSINOPHILS ABSOLUTE COUNT (BEAKER) (test geba=321) 0.01 K/ L 0.04-0.54 BASOPHILS ABSOLUTE COUNT (BEAKER) (test xtvl=637) 0.06 K/ L 0.01-0.08 IMMATURE GRANULOCYTES-RELATIVE PERCENT (BEAKER) (test ugia=4448) 5 % 0-1 POCT-GLUCOSE [id number] 21:28:00* Test Item Value Reference Range Comments POC-GLUCOSE METER (BEAKER) (test fjaj=5107) 126 mg/dL 70-110 TESTED AT [address] [address] BASIC METABOLIC [id number] 18:58:00* Test Item Value Reference Range Comments SODIUM (BEAKER) (test ozud=183) 137 meq/L 136-145 POTASSIUM (BEAKER) (test thjh=041) 4.7 meq/L 3.5-5.1 Specimen slightly hemolyzed CHLORIDE (BEAKER) (test iszr=630) 95 meq/L 98-107 CO2 (BEAKER) (test bpan=157) 29 meq/L 22-29 BLOOD UREA NITROGEN (BEAKER) (test gabr=479) 31 mg/dL 7-21 CREATININE (BEAKER) (test ogji=679) 1.14 mg/dL 0.57-1.25 Specimen slightly hemolyzed GLUCOSE RANDOM (BEAKER) (test akmx=739) 252 mg/dL 70-105 CALCIUM (BEAKER) (test nktf=082) 10.0 mg/dL 8.4-10.2 EGFR (BEAKER) (test bvbo=9069) 63 mL/min/1.73 sq m ESTIMATED GFR IS NOT ACCURATE CREATININE CLEARANCE IN PREDICTING GLOMERULAR FILTRATION RATE. ESTIMATED GFR IS NOT APPLICABLE FOR DIALYSIS PATIENTS. POCT-GLUCOSE [id number] 17:35:00* Test Item Value Reference Range Comments POC-GLUCOSE METER (BEAKER) (test rqpw=4344) 256 mg/dL 70-[address] [facility] [address] [facility] [address] POCT-GLUCOSE [id number] 11:52:00* Test Item Value Reference Range Comments POC-GLUCOSE METER (BEAKER) (test telf=0113) 135 mg/dL 70-110 TESTED AT [place] [id number] [facility] [address] CBC W/PLT COUNT & AUTO [id number] 09:56:00* Test Item Value Reference Range Comments WHITE BLOOD CELL COUNT (BEAKER) (test szrx=313) 15.9 K/ L 3.5-10.5 RED BLOOD CELL COUNT (BEAKER) (test zgvc=190) 4.23 M/ L 4.63-6.08 HEMOGLOBIN (BEAKER) (test krcw=321) 12.3 GM/DL 13.7-17.5 HEMATOCRIT (BEAKER) (test kghu=494) 39.4 % 40.1-51.0 MEAN CORPUSCULAR VOLUME (BEAKER) (test vxsb=532) 93.1 fL 79.0-92.2 MEAN CORPUSCULAR HEMOGLOBIN (BEAKER) (test iyja=026) 29.1 pg 25.7-32.2 MEAN CORPUSCULAR HEMOGLOBIN CONC (BEAKER) (test slbw=153) 31.2 GM/DL 32.3-36.5 RED CELL DISTRIBUTION WIDTH (BEAKER) (test qlzl=409) 12.9 % 11.6-14.4 PLATELET COUNT (BEAKER) (test goxo=505) 264 K/CU MM 150-450 MEAN PLATELET VOLUME (BEAKER) (test xqit=852) 10.5 fL 9.4-12.4 NUCLEATED RED BLOOD CELLS (BEAKER) (test ysrq=554) 0 /100 WBC 0-0 (CELLAVISION MANUAL DIFF)2018-01-27 09:56:00* Test Item Value Reference Range Comments NEUTROPHILS - REL (CELLAVISION)(BEAKER) (test jkqe=8057) 85 % LYMPHOCYTES - REL (CELLAVISION)(BEAKER) (test qlmx=0131) 6 % MONOCYTES - REL (CELLAVISION)(BEAKER) (test qeii=5632) 9 % NEUTROPHILS - ABS (CELLAVISION)(BEAKER) (test gaao=0608) 13.52 K/ul 1.78-5.38 LYMPHOCYTES - ABS (CELLAVISION)(BEAKER) (test yjoo=4394) 0.95 K/ul 1.32-3.57 MONOCYTES - ABS (CELLAVISION)(BEAKER) (test claq=4382) 1.43 K/uL 0.30-0.82 TOTAL COUNTED (BEAKER) (test vmzo=5808) 100 WBC MORPHOLOGY (BEAKER) (test djbf=643) Normal LARGE PLT(BEAKER) (test nxzg=1825) Present POLYCHROMATOPHILLIC RBCS(BEAKER) (test byph=822) 1+ few ARTIFACT (CELLAVISION)(BEAKER) (test gijg=4904) Present PLATELET CONCENTRATION (CELLAVISION)(BEAKER) (test tbvy=5059) Adequate Received comment: User comments: Slide comments: POCT-GLUCOSE [id number] 07:25:00* Test Item Value Reference Range Comments POC-GLUCOSE METER (BEAKER) (test ejmv=0543) 109 mg/dL 70-110 TESTED AT [place] [id number] [facility] [address] POCT-GLUCOSE [id number] 06:38:00* Test Item Value Reference Range Comments POC-GLUCOSE METER (BEAKER) (test dffn=5348) 130 mg/dL 70-110 TESTED AT [place] [id number] [facility] [address] [id number] 05:37:00* Test Item Value Reference Range Comments MAGNESIUM (BEAKER) (test ektf=596) 2.3 mg/dL 1.6-2.6 Specimen slightly hemolyzed BASIC METABOLIC [id number] 05:37:00* Test Item Value Reference Range Comments SODIUM (BEAKER) (test vhoz=148) 138 meq/L 136-145 POTASSIUM (BEAKER) (test ewah=825) 4.1 meq/L 3.5-5.1 Specimen slightly hemolyzed CHLORIDE (BEAKER) (test anvw=155) 103 meq/L 98-107 CO2 (BEAKER) (test ptum=653) 26 meq/L 22-29 BLOOD UREA NITROGEN (BEAKER) (test pfui=564) 26 mg/dL 7-21 CREATININE (BEAKER) (test vbul=981) 0.82 mg/dL 0.57-1.25 Specimen slightly hemolyzed GLUCOSE RANDOM (BEAKER) (test jvkq=333) 131 mg/dL 70-105 CALCIUM (BEAKER) (test zenm=668) 9.4 mg/dL 8.4-10.2 EGFR (BEAKER) (test anwx=7207) 92 mL/min/1.73 sq m ESTIMATED GFR IS NOT ACCURATE CREATININE CLEARANCE IN PREDICTING GLOMERULAR FILTRATION RATE. ESTIMATED GFR IS NOT APPLICABLE FOR DIALYSIS PATIENTS. POCT-GLUCOSE [id number] 22:22:00* Test Item Value Reference Range Comments POC-GLUCOSE METER (BEAKER) (test tfri=1566) 175 mg/dL 70-110 TESTED AT [place] [id number] [facility] [address] POCT-GLUCOSE [id number] 17:32:00* Test Item Value Reference Range Comments POC-GLUCOSE METER (BEAKER) (test ebpz=6280) 172 mg/dL 70-110 TESTED AT [address] [address] BASIC METABOLIC [id number] 16:48:00* Test Item Value Reference Range Comments SODIUM (BEAKER) (test vtgd=820) 139 meq/L 136-145 POTASSIUM (BEAKER) (test xbje=082) 3.9 meq/L 3.5-5.1 Specimen slightly hemolyzed CHLORIDE (BEAKER) (test ozyg=371) 98 meq/L 98-107 CO2 (BEAKER) (test fric=530) 25 meq/L 22-29 BLOOD UREA NITROGEN (BEAKER) (test zmjk=118) 29 mg/dL 7-21 CREATININE (BEAKER) (test xija=600) 1.07 mg/dL 0.57-1.25 Specimen slightly hemolyzed GLUCOSE RANDOM (BEAKER) (test yerm=284) 146 mg/dL 70-105 CALCIUM (BEAKER) (test zldd=425) 9.6 mg/dL 8.4-10.2 EGFR (BEAKER) (test drmu=5777) 67 mL/min/1.73 sq m ESTIMATED GFR IS NOT ACCURATE CREATININE CLEARANCE IN PREDICTING GLOMERULAR FILTRATION RATE. ESTIMATED GFR IS NOT APPLICABLE FOR DIALYSIS PATIENTS. POCT-GLUCOSE [id number] 11:59:00* Test Item Value Reference Range Comments POC-GLUCOSE METER (BEAKER) (test woko=4291) 220 mg/dL 70-[address] [facility] [address] [facility] [address] SPUTUM CULTURE + GRAM [id number] 10:06:00* Test Item Value Reference Range Comments CULTURE (BEAKER) (test fvbq=6639) 1+ Normal respiratory gary present GRAM STAIN RESULT (BEAKER) (test pznn=0320) 4+ WBCs GRAM STAIN RESULT (BEAKER) (test fcfu=13535) 0-5 epithelial cells GRAM STAIN RESULT (BEAKER) (test gxdn=53818) No organisms seen URINE [id number] 08:17:00* Test Item Value Reference Range Comments CULTURE (BEAKER) (test rhke=0008) No growth BLOOD GAS, [id number] 07:49:00* Test Item Value Reference Range Comments PH ARTERIAL (BEAKER) (test ubyz=906) 7.46 7.35-7.45 PCO2 ARTERIAL (BEAKER) (test jlqo=714) 36 mmHg 35-45 PO2 ARTERIAL (BEAKER) (test csuq=610) 64 mmHg 80-90 O2 SATURATION ARTERIAL (BEAKER) (test xtmg=814) 93.1 % 96.0-97.0 HCO3 ARTERIAL (BEAKER) (test fqgr=897) 25 mmol/L 21-29 BASE EXCESS ARTERIAL (BEAKER) (test iosv=126) 1.5 mmol/L -2.0-3.0 PATIENT TEMPERATURE (BEAKER) (test gzso=4868) 37.5 C FIO2 (BEAKER) (test ngme=0192) 21.0 % POCT-GLUCOSE [id number] 07:36:00* Test Item Value Reference Range Comments POC-GLUCOSE METER (BEAKER) (test zmos=0620) 196 mg/dL 70-[address] [facility] [address] [facility] [address] TROPONIN [id number] 07:01:00* Test Item Value Reference Range Comments TROPONIN I (BEAKER) (test zpcw=005) 0.23 ng/mL 0.00-0.03 Troponin I (TnI) levels must be interpreted in the context of the presenting sym ptoms and the clinical findings. Elevated TnI levels indicate myocardial damage, but are not specific for ischemic heart disease. Elevated TnI levels are seen in patients with other cardiac conditions (including myocarditis and congestive h eart failure), and slight TnI elevations occur in patients with other conditions , including sepsis, renal failure, acidosis, acute neurological disease, and per sistent tachyarrhythmia.BASIC METABOLIC [id number] 07:01:00* Test Item Value Reference Range Comments SODIUM (BEAKER) (test hxzw=477) 136 meq/L 136-145 POTASSIUM (BEAKER) (test kfne=150) 4.4 meq/L 3.5-5.1 CHLORIDE (BEAKER) (test vehk=859) 104 meq/L 98-107 CO2 (BEAKER) (test paua=929) 24 meq/L 22-29 BLOOD UREA NITROGEN (BEAKER) (test beba=499) 26 mg/dL 7-21 CREATININE (BEAKER) (test thix=773) 0.93 mg/dL 0.57-1.25 GLUCOSE RANDOM (BEAKER) (test typi=918) 181 mg/dL 70-105 CALCIUM (BEAKER) (test bczw=966) 9.1 mg/dL 8.4-10.2 EGFR (BEAKER) (test xxpd=9149) 79 mL/min/1.73 sq m ESTIMATED GFR IS NOT ACCURATE CREATININE CLEARANCE IN PREDICTING GLOMERULAR FILTRATION RATE. ESTIMATED GFR IS NOT APPLICABLE FOR DIALYSIS PATIENTS. [id number] 06:43:00* Test Item Value Reference Range Comments MAGNESIUM (BEAKER) (test qohz=041) 2.2 mg/dL 1.6-2.6 POCT-GLUCOSE [id number] 06:29:00* Test Item Value Reference Range Comments POC-GLUCOSE METER (BEAKER) (test wkaw=2313) 179 mg/dL 70-[address] [facility] [address] [facility] [address] CBC W/PLT COUNT & AUTO [id number] 06:23:00* Test Item Value Reference Range Comments WHITE BLOOD CELL COUNT (BEAKER) (test ejbj=615) 16.6 K/ L 3.5-10.5 RED BLOOD CELL COUNT (BEAKER) (test psck=824) 3.62 M/ L 4.63-6.08 HEMOGLOBIN (BEAKER) (test rfyg=624) 10.8 GM/DL 13.7-17.5 HEMATOCRIT (BEAKER) (test zsaq=213) 32.9 % 40.1-51.0 MEAN CORPUSCULAR VOLUME (BEAKER) (test qtay=789) 90.9 fL 79.0-92.2 MEAN CORPUSCULAR HEMOGLOBIN (BEAKER) (test gdll=163) 29.8 pg 25.7-32.2 MEAN CORPUSCULAR HEMOGLOBIN CONC (BEAKER) (test izov=047) 32.8 GM/DL 32.3-36.5 RED CELL DISTRIBUTION WIDTH (BEAKER) (test cdjv=635) 12.9 % 11.6-14.4 PLATELET COUNT (BEAKER) (test kowj=926) 225 K/CU MM 150-450 MEAN PLATELET VOLUME (BEAKER) (test pjss=196) 11.0 fL 9.4-12.4 NUCLEATED RED BLOOD CELLS (BEAKER) (test lhdi=728) 0 /100 WBC 0-0 NEUTROPHILS RELATIVE PERCENT (BEAKER) (test vxyt=966) 91 % LYMPHOCYTES RELATIVE PERCENT (BEAKER) (test hzbi=482) 4 % MONOCYTES RELATIVE PERCENT (BEAKER) (test lfft=659) 4 % EOSINOPHILS RELATIVE PERCENT (BEAKER) (test qbeb=139) 0 % BASOPHILS RELATIVE PERCENT (BEAKER) (test ylbm=470) 0 % NEUTROPHILS ABSOLUTE COUNT (BEAKER) (test cuqn=271) 15.00 K/ L 1.78-5.38 LYMPHOCYTES ABSOLUTE COUNT (BEAKER) (test wwyd=489) 0.62 K/ L 1.32-3.57 MONOCYTES ABSOLUTE COUNT (BEAKER) (test wzge=410) 0.70 K/ L 0.30-0.82 EOSINOPHILS ABSOLUTE COUNT (BEAKER) (test biio=462) 0.00 K/ L 0.04-0.54 BASOPHILS ABSOLUTE COUNT (BEAKER) (test lnba=814) 0.03 K/ L 0.01-0.08 IMMATURE GRANULOCYTES-RELATIVE PERCENT (BEAKER) (test tjmx=3869) 1 % 0-1 POCT-GLUCOSE [id number] 22:11:00* Test Item Value Reference Range Comments POC-GLUCOSE METER (KANE) (test jbiq=5028) 290 mg/dL 70-[address] [facility] [address] [facility] [address] RAD, SHOULDER, COMPLETE (MIN 2 VIEWS), [id number] 21:59:00Reason for exam:-> Please obtain left scapular Y and axillary lateralShould this be performed at e bedside?->YesFINAL REPORT CLINICAL HISTORY: Please obtain left scapular Y and axillary lateral TECHNIQUE: 3 views of the left shoulder COMPARISON: Plain radiograph of the left shoulder, 01/25/2018. IMPRESSION:Again seen is the retained intraosseous needle projecting over the lateral humeral head. Humeral head is well seated in the coronoid fossa. No acute fracture or malalignment. Mild degenerative changes of the clinic humeral joint. Multiple round calcific fragments within the shoulder joint favored to represent loose bodies. Visualized lungs and ribs are clear. Signed: David Allen Verified Date/Time: 01/25/2018 21:59:14 Reading Location: [address] Reading Room , SHOULDER, COMPLETE (MIN 2 VIEWS), LEFT 2018-01-25 20:47:00Reason for exam:->retained IOFINAL REPORT RAD, SHOULDER, COMPLETE (MIN 2 VIEWS), LEFT INDICATION: retained IO COMPARISON: None TECHNIQUE: Frontal views of the left shoulder in internal and external rotation. IMPRESSION: Stable positioning of disconnected intraosseous needle within the left humeral head. The extraosseous portion of right projects under the acromial foci laterally in the provided images. Signed: JR Howell Robert MDReport Verified Date/Time: 01/25/2018 20:47:52 Reading Location: [address] Reading Room D GAS, [id number] 18:11:00* Test Item Value Reference Range Comments PH ARTERIAL (BEAKER) (test zsva=857) 7.46 7.35-7.45 PCO2 ARTERIAL (BEAKER) (test rbfj=890) 39 mmHg 35-45 PO2 ARTERIAL (BEAKER) (test izyn=509) 88 mmHg 80-90 O2 SATURATION ARTERIAL (BEAKER) (test yfgc=165) 97.2 % 96.0-97.0 HCO3 ARTERIAL (BEAKER) (test zvxo=334) 27 mmol/L 21-29 BASE EXCESS ARTERIAL (BEAKER) (test ldxl=724) 3.2 mmol/L -2.0-3.0 PATIENT TEMPERATURE (BEAKER) (test xadd=6572) 37.0 C FIO2 (BEAKER) (test pgga=3201) 28.0 % BASIC METABOLIC [id number] 17:02:00* Test Item Value Reference Range Comments SODIUM (BEAKER) (test kjxa=212) 144 meq/L 136-145 POTASSIUM (BEAKER) (test heej=535) 3.9 meq/L 3.5-5.1 CHLORIDE (BEAKER) (test wchh=437) 106 meq/L 98-107 CO2 (BEAKER) (test rkax=551) 24 meq/L 22-29 BLOOD UREA NITROGEN (BEAKER) (test siff=891) 20 mg/dL 7-21 CREATININE (BEAKER) (test mfqg=230) 0.89 mg/dL 0.57-1.25 GLUCOSE RANDOM (BEAKER) (test nkwq=874) 122 mg/dL 70-105 CALCIUM (BEAKER) (test rmip=909) 9.6 mg/dL 8.4-10.2 EGFR (BEAKER) (test ezks=6188) 83 mL/min/1.73 sq m ESTIMATED GFR IS NOT ACCURATE CREATININE CLEARANCE IN PREDICTING GLOMERULAR FILTRATION RATE. ESTIMATED GFR IS NOT APPLICABLE FOR DIALYSIS PATIENTS. RAD, SHOULDER, 1 VIEW, [id number] 12:37:00Reason for exam:->IO deviceFINAL REPORT Shoulder, left, one view INDICATION: Broken needle. COMPARISON: None available IMPRESSION: A single frontal view of the left shoulder is provided. There is linear metallic foreign matter in the humeral he ad compatible with a needle fragment. There is no visible acute fracture, and no evident subluxation on this single view. Left shoulder degenerative changes are present. Left chest pacemaker, vascular stent, aortic calcifications, cervical spine fusion hardware, and neck surgical clips are noted. The imaged chest is si milar to earlier today. Signed: Shaw Orlando MDReport Verified Date/Time : 01/25/2018 12:37:44 Reading Location: [facility] Radiology Reading Room - GLUCOSE [id number] 11:28:00* Test Item Value Reference Range Comments POC-GLUCOSE METER (BEAKER) (test qvve=5657) 213 mg/dL 70-110 TESTED AT [address] [address] B-TYPE NATRIURETIC FACTOR (BNP)2018-01-25 11:11:00* Test Item Value Reference Range Comments B-TYPE NATRIURETIC PEPTIDE (BEAKER) (test vofk=498) 1587 pg/mL 0-100 RAD, CHEST, 1 VIEW, NON [id number] 11:08:00Reason for exam:->resp failure FINAL REPORT INDICATION: resp failure TECHNIQUE: Chest ra diograph, single view, portable technique. FINDINGS / IMPRESSION: There is a new endotracheal tube that terminates 2.5 cm above the jessica. There is a new nasog astric tube which crosses the diaphragm. Central pulmonary venous congestion has worsened now with probable mild interstitial edema. Prominent heart shadow and single lead left subclavian pacemaker again demonstrated. No discrete consolidat ion, pneumothorax, or pleural effusion. Right innominate vascular stent is noted . Signed: Boyd Crocker MDReport Verified Date/Time: 01/25/2018 11:08:47 Montse reyes Location: [facility] B1 C013Y CT Body Reading Room IRATORY PANEL [id number] 10:56:00* Test Item Value Reference Range Comments HUMAN METAPNEUMOVIRUS (BEAKER) (test izml=5693) Not detected Not detected, Inconclusive RHINOVIRUS (BEAKER) (test eiwx=0834) Not detected Not detected, Inconclusive INFLUENZA A (BEAKER) (test yewh=6920) Not detected Not detected, Inconclusive INFLUENZA A SUBTYPE H1 (BEAKER) (test zjmv=7303) Not detected Not detected, Inconclusive INFLUENZA A SUBTYPE H3 (BEAKER) (test gnir=2236) Not detected Not detected, Inconclusive INFLUENZA A SUBTYPE H1-2009 (BEAKER) (test amah=2815) Not detected Not detected, Inconclusive INFLUENZA B (BEAKER) (test wirn=6758) Not detected Not detected, Inconclusive RESPIRATORY SYNCYTIAL VIRUS (BEAKER) (test uqyc=6473) Not detected Not detected, Inconclusive PARAINFLUENZA VIRUS 1 (BEAKER) (test kklw=0780) Not detected Not detected, Inconclusive PARAINFLUENZA VIRUS 2 (BEAKER) (test mszx=6104) Not detected Not detected, Inconclusive PARAINFLUENZA VIRUS 3 (BEAKER) (test hwrn=3958) Not detected Not detected, Inconclusive PARAINFLUENZA VIRUS 4 (BEAKER) (test avcg=9807) Not detected Not detected, Inconclusive ADENOVIRUS (BEAKER) (test sadj=7713) Not detected Not detected, Inconclusive CORONAVIRUS 229E (BEAKER) (test iema=9616) Not detected Not detected, Inconclusive CORONAVIRUS HKU1 (BEAKER) (test zsyq=4733) Not detected Not detected, Inconclusive CORONAVIRUS NL63 (BEAKER) (test wvck=8112) Not detected Not detected, Inconclusive CORONAVIRUS OC43 (BEAKER) (test evfr=1342) Not detected Not detected, Inconclusive BORDETELLA PERTUSSIS (BEAKER) (test dtyy=7869) Not detected Not detected, Inconclusive CHLAMYDOPHILA PNEUMONIAE (BEAKER) (test getj=7834) Not detected Not detected, Inconclusive MYCOPLASMA PNEUMONIAE (BEAKER) (test ehxs=4944) Not detected Not detected, Inconclusive URINE [id number] 08:30:00* Test Item Value Reference Range Comments CULTURE (BEAKER) (test gdvl=4985) No growth POCT-GLUCOSE [id number] 08:10:00* Test Item Value Reference Range Comments POC-GLUCOSE METER (BEAKER) (test jqvf=0224) 240 mg/dL 70-[address] [facility] [address] [facility] [address] LACTIC ACID, VENOUS, WHOLE [id number] 06:30:00* Test Item Value Reference Range Comments LACTATE BLOOD VENOUS (2) (BEAKER) (test gcpi=0456) 2.2 mmol/L 0.5-2.2 Effective 10/31/2015: Units/Reference Range ChangeNew: 0.5-2.2 mmol/L Previous: 5 -20 mg/dLTROPONIN [id number] 06:08:00* Test Item Value Reference Range Comments TROPONIN I (BEAKER) (test rhrq=859) 0.25 ng/mL 0.00-0.03 Troponin I (TnI) levels must be interpreted in the context of the presenting sym ptoms and the clinical findings. Elevated TnI levels indicate myocardial damage, but are not specific for ischemic heart disease. Elevated TnI levels are seen in patients with other cardiac conditions (including myocarditis and congestive h eart failure), and slight TnI elevations occur in patients with other conditions , including sepsis, renal failure, acidosis, acute neurological disease, and per sistent tachyarrhythmia.[id number] 05:42:00* Test Item Value Reference Range Comments MAGNESIUM (BEAKER) (test lnsu=858) 2.4 mg/dL 1.6-2.6 BASIC METABOLIC [id number] 05:42:00* Test Item Value Reference Range Comments SODIUM (BEAKER) (test wjca=463) 131 meq/L 136-145 POTASSIUM (BEAKER) (test ymql=379) 3.8 meq/L 3.5-5.1 CHLORIDE (BEAKER) (test pfvc=350) 104 meq/L 98-107 CO2 (BEAKER) (test bucz=268) 20 meq/L 22-29 BLOOD UREA NITROGEN (BEAKER) (test whdl=112) 19 mg/dL 7-21 CREATININE (BEAKER) (test pjya=191) 0.96 mg/dL 0.57-1.25 GLUCOSE RANDOM (BEAKER) (test tdwh=850) 258 mg/dL 70-105 CALCIUM (BEAKER) (test wgkd=228) 9.3 mg/dL 8.4-10.2 EGFR (BEAKER) (test retb=6026) 76 mL/min/1.73 sq m ESTIMATED GFR IS NOT ACCURATE CREATININE CLEARANCE IN PREDICTING GLOMERULAR FILTRATION RATE. ESTIMATED GFR IS NOT APPLICABLE FOR DIALYSIS PATIENTS. CBC W/PLT COUNT & AUTO [id number] 05:03:00* Test Item Value Reference Range Comments WHITE BLOOD CELL COUNT (BEAKER) (test fuab=444) 11.1 K/ L 3.5-10.5 RED BLOOD CELL COUNT (BEAKER) (test tyjj=966) 3.71 M/ L 4.63-6.08 HEMOGLOBIN (BEAKER) (test nahd=255) 11.0 GM/DL 13.7-17.5 HEMATOCRIT (BEAKER) (test wjdx=809) 34.5 % 40.1-51.0 MEAN CORPUSCULAR VOLUME (BEAKER) (test ikfl=828) 93.0 fL 79.0-92.2 MEAN CORPUSCULAR HEMOGLOBIN (BEAKER) (test naje=186) 29.6 pg 25.7-32.2 MEAN CORPUSCULAR HEMOGLOBIN CONC (BEAKER) (test elwm=578) 31.9 GM/DL 32.3-36.5 RED CELL DISTRIBUTION WIDTH (BEAKER) (test xwps=779) 13.1 % 11.6-14.4 PLATELET COUNT (BEAKER) (test vrzg=751) 205 K/CU MM 150-450 MEAN PLATELET VOLUME (BEAKER) (test ofhp=438) 11.1 fL 9.4-12.4 NUCLEATED RED BLOOD CELLS (BEAKER) (test upmi=896) 0 /100 WBC 0-0 NEUTROPHILS RELATIVE PERCENT (BEAKER) (test ruas=747) 91 % LYMPHOCYTES RELATIVE PERCENT (BEAKER) (test baal=777) 4 % MONOCYTES RELATIVE PERCENT (BEAKER) (test hmph=642) 4 % EOSINOPHILS RELATIVE PERCENT (BEAKER) (test kjqi=743) 0 % BASOPHILS RELATIVE PERCENT (BEAKER) (test gxsw=965) 0 % NEUTROPHILS ABSOLUTE COUNT (BEAKER) (test ogsd=699) 10.11 K/ L 1.78-5.38 LYMPHOCYTES ABSOLUTE COUNT (BEAKER) (test ogff=087) 0.48 K/ L 1.32-3.57 MONOCYTES ABSOLUTE COUNT (BEAKER) (test ihlj=033) 0.40 K/ L 0.30-0.82 EOSINOPHILS ABSOLUTE COUNT (BEAKER) (test khfz=766) 0.00 K/ L 0.04-0.54 BASOPHILS ABSOLUTE COUNT (BEAKER) (test nwtb=143) 0.01 K/ L 0.01-0.08 IMMATURE GRANULOCYTES-RELATIVE PERCENT (BEAKER) (test xitw=7201) 1 % 0-1 CALCIUM, [id number] 05:00:00* Test Item Value Reference Range Comments CALCIUM IONIZED (BEAKER) (test jzxo=115) 1.17 mmol/L 1.12-1.27 PH, BLOOD (BEAKER) (test mpri=1300) 7.44 BLOOD GAS, [id number] 04:59:00* Test Item Value Reference Range Comments PH ARTERIAL (BEAKER) (test ccek=167) 7.43 7.35-7.45 PCO2 ARTERIAL (BEAKER) (test umrt=100) 39 mmHg 35-45 PO2 ARTERIAL (BEAKER) (test hfjy=107) 158 mmHg 80-90 O2 SATURATION ARTERIAL (BEAKER) (test micb=639) 99.1 % 96.0-97.0 HCO3 ARTERIAL (BEAKER) (test hqbw=267) 25 mmol/L 21-29 BASE EXCESS ARTERIAL (BEAKER) (test krta=030) 1.2 mmol/L -2.0-3.0 PATIENT TEMPERATURE (BEAKER) (test bbgg=3643) 37.2 C FIO2 (BEAKER) (test mlgv=7782) 100.0 % RAD, CHEST, 1 VIEW, NON [id number] 03:43:00Reason for exam:->resp failure FINAL REPORT RAD, CHEST, 1 VIEW, NON DEPT INDICATION: res p failure COMPARISON: Prior day's exam FINDINGS: Portable frontal view of the est. IMPRESSION: Support Lines: Stable. Lungs and pleura: Underinflated lungs . No focal airspace disease. Basilar subsegmental atelectasis on the left. Trace left effusion. No pneumothorax.Heart and mediastinum: Stable contours. Stable v ascular stent material in the right subclavian region.Additional findings: Uncha nged single-lead pacer. Signed: JR Howell Robert MDReport Verified Date/ Time: 01/25/2018 03:43:17 Reading Location: [facility] Radiology Reading Room Elec tronically signed by: QIANA HOWELL on 01/25/2018 03:43 AM URINALYSIS W/ [id number] 00:43:00* Test Item Value Reference Range Comments COLOR (BEAKER) (test wmoi=425) Yellow CLARITY (BEAKER) (test gufw=459) Clear SPECIFIC GRAVITY UA (BEAKER) (test mayu=836) 1.018 1.001-1.035 PH UA (BEAKER) (test fsef=871) 5.5 5.0-8.0 PROTEIN UA (BEAKER) (test llos=413) 30 mg/dL Negative GLUCOSE UA (BEAKER) (test qejo=499) Negative Negative KETONES UA (BEAKER) (test svnk=607) Negative Negative BILIRUBIN UA (BEAKER) (test wqgr=423) Negative Negative BLOOD UA (BEAKER) (test nbuw=241) Negative Negative NITRITE UA (BEAKER) (test jevw=990) Negative Negative LEUKOCYTE ESTERASE UA (BEAKER) (test joeq=752) Negative Negative UROBILINOGEN UA (BEAKER) (test wago=581) 0.2 mg/dL 0.2-1.0 RBC UA (BEAKER) (test tulq=554) < /HPF WBC UA (BEAKER) (test lnvf=620) 1 /HPF MUCUS (BEAKER) (test igic=9465) Occasional SQUAMOUS EPITHELIAL (BEAKER) (test wucg=746) 1 /HPF HYALINE CASTS (BEAKER) (test tfpa=432) 2 /LPF CASTS (BEAKER) (test duqd=6851) 4 /LPF SOURCE(BEAKER) (test zzho=2850) BLOOD GAS, [id number] 23:08:00* Test Item Value Reference Range Comments PH ARTERIAL (BEAKER) (test vkkj=872) 7.32 7.35-7.45 PCO2 ARTERIAL (BEAKER) (test ybvz=865) 50 mm Hg 35-45 PO2 ARTERIAL (BEAKER) (test ubxj=543) 354 mm Hg 80-90 O2 SATURATION ARTERIAL (BEAKER) (test azsj=807) 99.7 % 96.0-97.0 HCO3 ARTERIAL (BEAKER) (test envv=391) 25 mmol/L 21-29 BASE EXCESS ARTERIAL (BEAKER) (test dslr=231) -1.8 mmol/L -2.0-3.0 PATIENT TEMPERATURE (BEAKER) (test mxpd=1076) 35.7 FIO2 (BEAKER) (test cfmj=9536) 100 HGB/HCT (H&H) - STAT [id number] 23:08:00* Test Item Value Reference Range Comments HEMOGLOBIN (BEAKER) (test brde=977) 13.3 GM/DL 13.0-16.8 HEMATOCRIT (BEAKER) (test hjae=053) 39.0 % 40.0-50.0 POTASSIUM-STAT [id number] 23:08:00* Test Item Value Reference Range Comments POTASSIUM (BEAKER) (test xmfk=255) 4.0 meq/L 3.6-5.5 CBC W/PLT COUNT & AUTO [id number] 23:05:00* Test Item Value Reference Range Comments WHITE BLOOD CELL COUNT (BEAKER) (test pksb=539) 13.5 K/ L 3.5-10.5 RED BLOOD CELL COUNT (BEAKER) (test lfux=591) 3.92 M/ L 4.63-6.08 HEMOGLOBIN (BEAKER) (test cxvl=610) 11.5 GM/DL 13.7-17.5 HEMATOCRIT (BEAKER) (test bstr=851) 37.3 % 40.1-51.0 MEAN CORPUSCULAR VOLUME (BEAKER) (test imel=196) 95.0 fL 79.0-92.2 MEAN CORPUSCULAR HEMOGLOBIN (BEAKER) (test aqwm=122) 29.0 pg 25.7-32.2 MEAN CORPUSCULAR HEMOGLOBIN CONC (BEAKER) (test yjwt=805) 30.8 GM/DL 32.3-36.5 RED CELL DISTRIBUTION WIDTH (BEAKER) (test rzfk=431) 13.3 % 11.6-14.4 PLATELET COUNT (BEAKER) (test zinl=958) 223 K/CU MM 150-450 MEAN PLATELET VOLUME (BEAKER) (test wxtp=565) 11.7 fL 9.4-12.4 NEUTROPHILS RELATIVE PERCENT (BEAKER) (test twek=476) 92 % LYMPHOCYTES RELATIVE PERCENT (BEAKER) (test eekq=844) 4 % MONOCYTES RELATIVE PERCENT (BEAKER) (test howy=372) 4 % EOSINOPHILS RELATIVE PERCENT (BEAKER) (test zzxz=903) 0 % BASOPHILS RELATIVE PERCENT (BEAKER) (test yhkg=674) 0 % NEUTROPHILS ABSOLUTE COUNT (BEAKER) (test okia=691) 12.47 K/ L 1.78-5.38 LYMPHOCYTES ABSOLUTE COUNT (BEAKER) (test lzjk=505) 0.00 K/ L 1.32-3.57 MONOCYTES ABSOLUTE COUNT (BEAKER) (test uxsw=218) 0.45 K/ L 0.30-0.82 EOSINOPHILS ABSOLUTE COUNT (BEAKER) (test uusj=932) 0.56 K/ L 0.04-0.54 BASOPHILS ABSOLUTE COUNT (BEAKER) (test tumt=150) 0.00 K/ L 0.01-0.08 IMMATURE GRANULOCYTES-RELATIVE PERCENT (BEAKER) (test zpfa=4291) 0 % 0-1 POCT-GLUCOSE [id number] 22:33:00* Test Item Value Reference Range Comments POC-GLUCOSE METER (BEAKER) (test vtyw=9268) 244 mg/dL 70-[address] [facility] [address] [facility] [address] BLOOD GAS, [id number] 21:18:00* Test Item Value Reference Range Comments PH ARTERIAL (BEAKER) (test clox=795) 7.40 7.35-7.45 PCO2 ARTERIAL (BEAKER) (test kwsh=455) 42 mm Hg 35-45 PO2 ARTERIAL (BEAKER) (test unmv=693) 123 mm Hg 80-90 O2 SATURATION ARTERIAL (BEAKER) (test aqhz=137) 98.4 % 96.0-97.0 HCO3 ARTERIAL (BEAKER) (test qyth=903) 26 mmol/L 21-29 BASE EXCESS ARTERIAL (BEAKER) (test csnh=457) 0.6 mmol/L -2.0-3.0 PATIENT TEMPERATURE (BEAKER) (test jwsq=7866) 37.4 FIO2 (BEAKER) (test wqpd=0100) 100 TROPONIN [id number] 19:30:00* Test Item Value Reference Range Comments TROPONIN I (BEAKER) (test gxcm=351) 0.27 ng/mL 0.00-0.03 Troponin I (TnI) levels must be interpreted in the context of the presenting sym ptoms and the clinical findings. Elevated TnI levels indicate myocardial damage, but are not specific for ischemic heart disease. Elevated TnI levels are seen in patients with other cardiac conditions (including myocarditis and congestive h eart failure), and slight TnI elevations occur in patients with other conditions , including sepsis, renal failure, acidosis, acute neurological disease, and per sistent tachyarrhythmia.CREATINE KINASE (CK), TOTAL AND [id number] 19:27:00* Test Item Value Reference Range Comments CREATINE KINASE TOTAL (BEAKER) (test epkh=952) 75 U/L 29-200 CREATINE KINASE-MB (BEAKER) (test aogh=721) 3.9 ng/mL 0.0-6.6 CREATINE KINASE-MB INDEX (BEAKER) (test tnkk=745) 5.2 % CK-MB Reference Range:<6.7 Normal6.7-10.0 Borderline>10.0 Abnormal BASIC METABOLIC [id number] 18:20:00* Test Item Value Reference Range Comments SODIUM (BEAKER) (test kbtd=210) 125 meq/L 136-145 POTASSIUM (BEAKER) (test ygsc=877) 3.4 meq/L 3.5-5.1 CHLORIDE (BEAKER) (test rxas=132) 102 meq/L 98-107 CO2 (BEAKER) (test pqty=086) 22 meq/L 22-29 BLOOD UREA NITROGEN (BEAKER) (test ejfb=455) 21 mg/dL 7-21 CREATININE (BEAKER) (test llmg=683) 0.96 mg/dL 0.57-1.25 GLUCOSE RANDOM (BEAKER) (test jcsp=358) 185 mg/dL 70-105 CALCIUM (BEAKER) (test mltb=906) 9.0 mg/dL 8.4-10.2 EGFR (BEAKER) (test nasd=3339) 76 mL/min/1.73 sq m ESTIMATED GFR IS NOT ACCURATE CREATININE CLEARANCE IN PREDICTING GLOMERULAR FILTRATION RATE. ESTIMATED GFR IS NOT APPLICABLE FOR DIALYSIS PATIENTS. [id number] 18:16:00* Test Item Value Reference Range Comments MAGNESIUM (BEAKER) (test wimi=304) 1.5 mg/dL 1.6-2.6 HEMOGLOBIN [id number] 10:59:00* Test Item Value Reference Range Comments HEMOGLOBIN A1C (BEAKER) (test fihk=475) 6.0 % 4.3-6.1 POCT-GLUCOSE [id number] 10:35:00* Test Item Value Reference Range Comments POC-GLUCOSE METER (BEAKER) (test gmew=9709) 193 mg/dL 70-110 TESTED AT [address] [address] [address], BRAIN/STROKE [id number] 10:25:00FINAL REPORT CT head without contrast INDICATION: Decreased alertness, anisocoria TECHNIQUE: Axial noncontrast CT images through the head were obtained. Imaging was performed within 24 hours of arrival at the facility. This exam was performed according to our departmental dose optimization program which includes automated exposure control, adjustment of the mA and/or kV according to patient size and/or use of iterative reconstruction technique. COMPARISON: CT head 01/28/2017 FINDINGS:There is stable falcine dural thickening and mineralization. No hematoma, extra axial collection, or mass effect is evident. There are small chronic infarcts in the bilateral basal ganglia and left cerebellum. Other microvascular ischemic changes are present without definitive acute features. Please note that CT is insensitive for early or small infarcts. Generalized volume loss and vascular calcifications are noted. There is no hydrocephalus or midline shift. An ET tube is present with pharyngeal secretions, multifocal sinu s mucosal thickening, and well aerated mastoid air cells. There has been catarac t surgery. The calvarium is intact. IMPRESSION: No acute intracranial hemorrhag e or mass effect. 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 Microvascular ischemic changes without definitive acute features. If there is strong suspicion for acute ischemia, MRI is advised. Findings discussed with Dr. Jasso (neurology) at 10:20 AM Signed: Shaw Orlando Verified Date/Time: 01/24/2018 10:25:20 Reading Location: [address] Neuro Reading Ro om -GLUCOSE [id number] 10:04:00* Test Item Value Reference Range Comments POC-GLUCOSE METER (BEAKER) (test wrya=4096) 235 mg/dL 70-110 TESTED AT [address] [address] POCT-BLOOD GASES, [id number] 09:45:00* Test Item Value Reference Range Comments TEMP, CELSIUS-POC (BEAKER) (test rfmq=5049) 37.0 FIO2-POC (BEAKER) (test mofb=1987) TESTED AT [address] [address] PH, ARTERIAL-POC (BEAKER) (test hmkg=6820) 7.069 7.350-7.450 PCO2, ARTERIAL-POC (BEAKER) (test hbcr=1359) 102.6 mm Hg 35.0-45.0 PO2, ARTERIAL-POC (BEAKER) (test oznt=4708) 205.0 mm Hg 80.0-90.0 SO2, ARTERIAL-POC (BEAKER) (test jjsz=0425) 99.0 % 96.0-97.0 HCO3, ARTERIAL-POC (BEAKER) (test iilx=4044) 29.7 meq/L 21.0-29.0 BASE EXCESS, ARTERIAL-POC (BEAKER) (test qjiv=0459) 0.0 meq/L -2.0-3.0 [id number] 09:45:00* Test Item Value Reference Range Comments POC-SODIUM (BEAKER) (test hyyx=8351) 142 meq/L 135-148 TESTED AT [place] [id number] 09:45:00* Test Item Value Reference Range Comments POC-POTASSIUM (BEAKER) (test aras=6483) 4.1 meq/L 3.6-5.5 TESTED AT [address] [address] [id number] 09:45:00* Test Item Value Reference Range Comments POC-GLUCOSE (BEAKER) (test vkka=6439) 259 mg/dL 70-110 TESTED AT [address] [address] POCT-CALCIUM [id number] 09:45:00* Test Item Value Reference Range Comments POC-CALCIUM IONIZED (BEAKER) (test gnst=5264) 1.35 mmol/L 1.12-1.27 TESTED AT [address] [address] [id number] 09:45:00* Test Item Value Reference Range Comments POC-HEMATOCRIT (BEAKER) (test wkgk=9198) 41 % 40-50 TESTED AT [place] [id number] 09:45:00* Test Item Value Reference Range Comments POC-HEMOGLOBIN (BEAKER) (test bqmr=6560) 13.9 g/dL 13.0-16.8 TESTED AT [place] [address] [facility] [address] [facility] [address] [facility] [address] LACTIC ACID, VENOUS, WHOLE [id number] 09:07:00* Test Item Value Reference Range Comments LACTATE BLOOD VENOUS (2) (BEAKER) (test pymd=0895) 2.1 mmol/L 0.5-2.2 Specimen slightly hemolyzed Effective 10/31/2015: Units/Reference Range ChangeNew: 0.5-2.2 mmol/L Previous: 5 -20 mg/dLTROPONIN [id number] 05:49:00* Test Item Value Reference Range Comments TROPONIN I (BEAKER) (test kgor=446) 0.58 ng/mL 0.00-0.03 Troponin I (TnI) levels must be interpreted in the context of the presenting sym ptoms and the clinical findings. Elevated TnI levels indicate myocardial damage, but are not specific for ischemic heart disease. Elevated TnI levels are seen in patients with other cardiac conditions (including myocarditis and congestive h eart failure), and slight TnI elevations occur in patients with other conditions , including sepsis, renal failure, acidosis, acute neurological disease, and per sistent tachyarrhythmia.URINALYSIS W/ [id number] 05:19:00* Test Item Value Reference Range Comments COLOR (BEAKER) (test jrmk=660) Yellow CLARITY (BEAKER) (test lixi=197) Clear SPECIFIC GRAVITY UA (BEAKER) (test bdjt=953) 1.015 1.001-1.035 PH UA (BEAKER) (test aery=582) 5.5 5.0-8.0 PROTEIN UA (BEAKER) (test xyib=974) Negative Negative GLUCOSE UA (BEAKER) (test ssxx=583) Negative Negative KETONES UA (BEAKER) (test omqy=213) Trace Negative BILIRUBIN UA (BEAKER) (test bwse=274) Negative Negative BLOOD UA (BEAKER) (test lxmd=344) Negative Negative NITRITE UA (BEAKER) (test orjc=493) Negative Negative LEUKOCYTE ESTERASE UA (BEAKER) (test dymi=174) Negative Negative UROBILINOGEN UA (BEAKER) (test ijul=788) 0.2 mg/dL 0.2-1.0 RBC UA (BEAKER) (test cjsx=519) 1 /HPF WBC UA (BEAKER) (test rhll=145) 1 /HPF MUCUS (BEAKER) (test nmgs=0206) Occasional HYALINE CASTS (BEAKER) (test ievl=160) 29 /LPF AMORPHOUS CRYSTALS (BEAKER) (test pxfz=2717) Rare SOURCE(BEAKER) (test ekek=6845) HEPATIC FUNCTION [id number] 03:06:00* Test Item Value Reference Range Comments TOTAL PROTEIN (BEAKER) (test fofh=648) 7.2 gm/dL 6.0-8.3 Specimen slightly hemolyzed ALBUMIN (BEAKER) (test tdao=5900) 3.9 g/dL 3.5-5.0 Specimen slightly hemolyzed BILIRUBIN TOTAL (BEAKER) (test tmvv=804) 0.6 mg/dL 0.2-1.2 Specimen slightly hemolyzed BILIRUBIN DIRECT (BEAKER) (test bznw=851) 0.2 mg/dL 0.1-0.5 Specimen slightly hemolyzed ALKALINE PHOSPHATASE (BEAKER) (test rldi=192) 78 U/L 40-150 AST (SGOT) (BEAKER) (test mmqx=979) 18 U/L 5-34 Specimen slightly hemolyzed ALT (SGPT) (BEAKER) (test yxyr=030) 15 U/L 6-55 Specimen slightly hemolyzed LACTIC ACID, VENOUS, WHOLE [id number] 01:16:00* Test Item Value Reference Range Comments LACTATE BLOOD VENOUS (2) (BEAKER) (test mpcc=2224) 1.6 mmol/L 0.5-2.2 Specimen slightly hemolyzed Effective 10/31/2015: Units/Reference Range ChangeNew: 0.5-2.2 mmol/L Previous: 5 -20 mg/dLOXYGEN SATURATION, [id number] 00:51:00* Test Item Value Reference Range Comments O2 SATURATION (MEASURED) (BEAKER) (test haqn=9103) 38.7 % If patient has internal jugular ( IJ) or subclavian central line or PICC line. D raw from distal port. Label as central venous oxygen.B-TYPE NATRIURETIC FACTOR (BNP)2018-01-23 23:12:00* Test Item Value Reference Range Comments B-TYPE NATRIURETIC PEPTIDE (BEAKER) (test glaw=354) 643 pg/mL 0-100 CREATINE KINASE (CK), TOTAL AND [id number] 23:11:00* Test Item Value Reference Range Comments CREATINE KINASE TOTAL (BEAKER) (test qpsd=583) 49 U/L 29-200 CREATINE KINASE-MB (BEAKER) (test iiro=616) 2.3 ng/mL 0.0-6.6 CREATINE KINASE-MB INDEX (BEAKER) (test etkv=747) 4.7 % CK-MB Reference Range:<6.7 Normal6.7-10.0 Borderline>10.0 Abnormal TROPONIN [id number] 23:11:00* Test Item Value Reference Range Comments TROPONIN I (BEAKER) (test weas=407) 0.10 ng/mL 0.00-0.03 Troponin I (TnI) levels must be interpreted in the context of the presenting sym ptoms and the clinical findings. Elevated TnI levels indicate myocardial damage, but are not specific for ischemic heart disease. Elevated TnI levels are seen in patients with other cardiac conditions (including myocarditis and congestive h eart failure), and slight TnI elevations occur in patients with other conditions , including sepsis, renal failure, acidosis, acute neurological disease, and per sistent tachyarrhythmia.BASIC METABOLIC [id number] 23:05:00* Test Item Value Reference Range Comments SODIUM (BEAKER) (test ltli=259) 139 meq/L 136-145 POTASSIUM (BEAKER) (test cezq=933) 4.0 meq/L 3.5-5.1 Specimen slightly hemolyzed CHLORIDE (BEAKER) (test gvny=926) 101 meq/L 98-107 CO2 (BEAKER) (test edgk=956) 26 meq/L 22-29 BLOOD UREA NITROGEN (BEAKER) (test aigr=533) 24 mg/dL 7-21 CREATININE (BEAKER) (test kdng=718) 1.81 mg/dL 0.57-1.25 Specimen slightly hemolyzed GLUCOSE RANDOM (BEAKER) (test heri=078) 144 mg/dL 70-105 CALCIUM (BEAKER) (test cmfh=687) 10.2 mg/dL 8.4-10.2 EGFR (BEAKER) (test iugs=8831) 37 mL/min/1.73 sq m ESTIMATED GFR IS NOT ACCURATE CREATININE CLEARANCE IN PREDICTING GLOMERULAR FILTRATION RATE. ESTIMATED GFR IS NOT APPLICABLE FOR DIALYSIS PATIENTS. POCT-LACTIC ACID, [id number] 23:02:00* Test Item Value Reference Range Comments POC-LACTIC ACID, VENOUS (BEAKER) (test rccl=0687) 2.9 mmol/L 0.9-1.[address] [facility] [address] [facility] [address] PROTHROMBIN [id number] 22:38:00* Test Item Value Reference Range Comments PROTIME (BEAKER) (test sofk=550) 14.4 seconds 11.7-14.7 INR (BEAKER) (test wzrn=255) 1.1 <=5.9 RECOMMENDED COUMADIN/WARFARIN INR THERAPY RANGESSTANDARD DOSE: 2.0 - 3.0 Inclu taylor: PROPHYLAXIS for venous thrombosis, systemic embolization; TREATMENT for mel ous thrombosis and/or pulmonary embolus.HIGH RISK: Target INR is 2.5-3.5 for pat ients with mechanical heart valves.RAD, CHEST, 1 VIEW, NON [id number] 22:38:00Reason for exam:->ALTERED MENTAL STATUSReason for exam:-> TACHYCARDIAShould this be performed at the bedside?->YesFINAL REPORT Chest, 1 view. History: AMS and tachycardia. Comparison: Radiograph of the chest, 01/05/2017.. Findings: The cardiomediastinal silhouette and pulmonary vasculature are within normal limits for a portable exam. The lungs are clear without evidence of consolidation or effusion. The soft tissues and osseous structures are intact. Vascular stent overlies the right upper mediastinum. Partially evaluated postoperative changes of the neck. Left chest wall pacer device with single lead overlying the right ventricle. Atherosc lerotic calcifications of the thoracic aorta. IMPRESSION: No acute cardiopulmon julian abnormality. Signed: David Allen Verified Date/Time: 12/28 22:38:57 Reading Location: [facility] C0[facility] Transitional Reading Room Electr onically signed by: DAVID ALLEN MD on 01/23/2018 10:38 PM CBC W/PLT COUNT & AUTO [id number] 22:33:00* Test Item Value Reference Range Comments WHITE BLOOD CELL COUNT (BEAKER) (test hgtl=408) 15.9 K/ L 3.5-10.5 RED BLOOD CELL COUNT (BEAKER) (test uirl=914) 4.89 M/ L 4.63-6.08 HEMOGLOBIN (BEAKER) (test savb=546) 14.8 GM/DL 13.7-17.5 HEMATOCRIT (BEAKER) (test vbcn=005) 45.6 % 40.1-51.0 MEAN CORPUSCULAR VOLUME (BEAKER) (test tydi=054) 93.3 fL 79.0-92.2 MEAN CORPUSCULAR HEMOGLOBIN (BEAKER) (test wxuj=686) 30.3 pg 25.7-32.2 MEAN CORPUSCULAR HEMOGLOBIN CONC (BEAKER) (test ajnc=635) 32.5 GM/DL 32.3-36.5 RED CELL DISTRIBUTION WIDTH (BEAKER) (test lwsw=618) 12.9 % 11.6-14.4 PLATELET COUNT (BEAKER) (test nzsx=629) 271 K/CU MM 150-450 MEAN PLATELET VOLUME (BEAKER) (test yqey=444) 10.7 fL 9.4-12.4 NUCLEATED RED BLOOD CELLS (BEAKER) (test bpch=474) 0 /100 WBC 0-0 NEUTROPHILS RELATIVE PERCENT (BEAKER) (test aouc=442) 79 % LYMPHOCYTES RELATIVE PERCENT (BEAKER) (test ckvj=622) 11 % MONOCYTES RELATIVE PERCENT (BEAKER) (test lejn=046) 9 % EOSINOPHILS RELATIVE PERCENT (BEAKER) (test qveq=981) 1 % BASOPHILS RELATIVE PERCENT (BEAKER) (test idbf=415) 0 % NEUTROPHILS ABSOLUTE COUNT (BEAKER) (test trns=178) 12.47 K/ L 1.78-5.38 LYMPHOCYTES ABSOLUTE COUNT (BEAKER) (test xrcy=262) 1.76 K/ L 1.32-3.57 MONOCYTES ABSOLUTE COUNT (BEAKER) (test lhqb=109) 1.39 K/ L 0.30-0.82 EOSINOPHILS ABSOLUTE COUNT (BEAKER) (test pavc=341) 0.08 K/ L 0.04-0.54 BASOPHILS ABSOLUTE COUNT (BEAKER) (test jpmk=747) 0.03 K/ L 0.01-0.08 IMMATURE GRANULOCYTES-RELATIVE PERCENT (BEAKER) (test qnwg=0538) 1 % 0-1 [id number] 10:01:00* Test Item Value Reference Range Comments ACTIVATED CLOTTING TIME (BEAKER) (test jkvj=767) [address] [facility] [address] [facility] [address] TOXICOLOGY SCREEN, [id number] 09:09:00* Test Item Value Reference Range Comments SCAN RESULT (test [id number]=[id number]) CREATINE KINASE (CK), TOTAL AND [id number] 02:48:00* Test Item Value Reference Range Comments CREATINE KINASE TOTAL (BEAKER) (test xayp=519) 138 U/L 29-200 CREATINE KINASE-MB (BEAKER) (test gjom=263) 2.7 ng/mL 0.0-6.6 CREATINE KINASE-MB INDEX (BEAKER) (test gwvd=689) 2.0 % Effective 05/16/2014: CK-MB Reference Range ChangeNew: 0.0-6.6 Previous: 0.0- 4.9CK-MB Reference Range:<6.7 Normal6.7-10.0 Borderline>10.0 Abnormal TROPONIN [id number] 02:48:00* Test Item Value Reference Range Comments TROPONIN I (BEAKER) (test cqtq=939) 0.01 ng/mL 0.00-0.03 Effective 05/16/2014: Reference Range ChangeNew: 0.00-0.03 Previous 0.00-0.15T roponin I (TnI) levels must be interpreted in the context of the presenting symp toms and the clinical findings. Elevated TnI levels indicate myocardial damage, but are not specific for ischemic heart disease. Elevated TnI levels are seen in patients with other cardiac conditions (including myocarditis and congestive he art failure), and slight TnI elevations occur in patients with other conditions, including sepsis, renal failure, acidosis, acute neurological disease, and pers istent tachyarrhythmia.B-TYPE NATRIURETIC FACTOR (BNP)2017-01-28 02:45:00* Test Item Value Reference Range Comments B-TYPE NATRIURETIC PEPTIDE (BEAKER) (test jghh=014) 115 pg/mL 0-100 BASIC METABOLIC [id number] 02:40:00* Test Item Value Reference Range Comments SODIUM (BEAKER) (test kljh=337) 140 meq/L 136-145 POTASSIUM (BEAKER) (test ochc=979) 3.7 meq/L 3.5-5.1 CHLORIDE (BEAKER) (test akfk=023) 106 meq/L 98-107 CO2 (BEAKER) (test jgvs=093) 23 meq/L 22-29 BLOOD UREA NITROGEN (BEAKER) (test qtxm=006) 15 mg/dL 7-21 CREATININE (BEAKER) (test vopb=103) 1.12 mg/dL 0.57-1.25 GLUCOSE RANDOM (BEAKER) (test jjkz=598) 161 mg/dL 70-105 CALCIUM (BEAKER) (test cudf=754) 9.0 mg/dL 8.4-10.2 EGFR (BEAKER) (test lcdm=0616) 64 mL/min/1.73 sq m ESTIMATED GFR IS NOT ACCURATE CREATININE CLEARANCE IN PREDICTING GLOMERULAR FILTRATION RATE. ESTIMATED GFR IS NOT APPLICABLE FOR DIALYSIS PATIENTS. PT/[id number] 02:28:00* Test Item Value Reference Range Comments PROTIME (BEAKER) (test cspm=408) 13.5 seconds 11.7-14.7 INR (BEAKER) (test rmrh=296) 1.0 <=5.9 PARTIAL THROMBOPLASTIN TIME (BEAKER) (test uqec=780) 27.5 seconds 22.5-36.0 RECOMMENDED COUMADIN/WARFARIN INR THERAPY RANGESSTANDARD DOSE: 2.0 - 3.0 Inclu taylor: PROPHYLAXIS for venous thrombosis, systemic embolization; TREATMENT for mel ous thrombosis and/or pulmonary embolus.HIGH RISK: Target INR is 2.5-3.5 for pat ients with mechanical heart valves.CBC W/PLT COUNT & AUTO [id number] 02:06:00* Test Item Value Reference Range Comments WHITE BLOOD CELL COUNT (BEAKER) (test zpfu=623) 8.5 K/ L 3.5-10.5 RED BLOOD CELL COUNT (BEAKER) (test zsur=722) 3.85 M/ L 4.63-6.08 HEMOGLOBIN (BEAKER) (test xeau=296) 9.8 GM/DL 13.7-17.5 HEMATOCRIT (BEAKER) (test ipnp=835) 34.0 % 40.1-51.0 MEAN CORPUSCULAR VOLUME (BEAKER) (test qqcr=053) 88.3 fL 79.0-92.2 MEAN CORPUSCULAR HEMOGLOBIN (BEAKER) (test veoj=970) 25.5 pg 25.7-32.2 MEAN CORPUSCULAR HEMOGLOBIN CONC (BEAKER) (test wgao=527) 28.8 GM/DL 32.3-36.5 RED CELL DISTRIBUTION WIDTH (BEAKER) (test qslu=547) 19.6 % 11.6-14.4 PLATELET COUNT (BEAKER) (test mzxy=641) 471 K/CU MM 150-450 MEAN PLATELET VOLUME (BEAKER) (test gvxq=028) 9.9 fL 9.4-12.4 NUCLEATED RED BLOOD CELLS (BEAKER) (test jpkd=363) 0 /100 WBC 0-0 NEUTROPHILS RELATIVE PERCENT (BEAKER) (test qnuw=590) 68 % LYMPHOCYTES RELATIVE PERCENT (BEAKER) (test qvqv=799) 24 % MONOCYTES RELATIVE PERCENT (BEAKER) (test pswx=581) 5 % EOSINOPHILS RELATIVE PERCENT (BEAKER) (test trlh=114) 2 % BASOPHILS RELATIVE PERCENT (BEAKER) (test ujuo=732) 0 % NEUTROPHILS ABSOLUTE COUNT (BEAKER) (test dnsv=142) 5.74 K/ L 1.78-5.38 LYMPHOCYTES ABSOLUTE COUNT (BEAKER) (test mycz=956) 2.03 K/ L 1.32-3.57 MONOCYTES ABSOLUTE COUNT (BEAKER) (test jpvk=612) 0.46 K/ L 0.30-0.82 EOSINOPHILS ABSOLUTE COUNT (BEAKER) (test bsww=083) 0.14 K/ L 0.04-0.54 BASOPHILS ABSOLUTE COUNT (BEAKER) (test oizf=023) 0.02 K/ L 0.01-0.08 IMMATURE GRANULOCYTES-RELATIVE PERCENT (BEAKER) (test iffu=4477) 1 % 0-1 B-TYPE NATRIURETIC FACTOR (BNP)2017-01-23 15:37:00* Test Item Value Reference Range Comments B-TYPE NATRIURETIC PEPTIDE (BEAKER) (test izdx=966) 150 pg/mL 0-100 [id number] 15:29:00* Test Item Value Reference Range Comments MAGNESIUM (BEAKER) (test nlnr=095) 1.9 mg/dL 1.6-2.6 BASIC METABOLIC [id number] 15:29:00* Test Item Value Reference Range Comments SODIUM (BEAKER) (test hjos=452) 143 meq/L 136-145 POTASSIUM (BEAKER) (test buym=371) 4.2 meq/L 3.5-5.1 CHLORIDE (BEAKER) (test stzj=289) 105 meq/L 98-107 CO2 (BEAKER) (test iyyc=434) 28 meq/L 22-29 BLOOD UREA NITROGEN (BEAKER) (test dsrd=447) 8 mg/dL 7-21 CREATININE (BEAKER) (test dnid=911) 1.08 mg/dL 0.57-1.25 GLUCOSE RANDOM (BEAKER) (test msdm=433) 93 mg/dL 70-105 CALCIUM (BEAKER) (test ovsj=563) 9.4 mg/dL 8.4-10.2 EGFR (BEAKER) (test agkr=4426) 67 mL/min/1.73 sq m ESTIMATED GFR IS NOT ACCURATE CREATININE CLEARANCE IN PREDICTING GLOMERULAR FILTRATION RATE. ESTIMATED GFR IS NOT APPLICABLE FOR DIALYSIS PATIENTS. BLOOD [id number] 18:00:00* Test Item Value Reference Range Comments CULTURE (BEAKER) (test tgan=4031) No growth in 5 days BLOOD [id number] 18:00:00* Test Item Value Reference Range Comments CULTURE (BEAKER) (test pjfj=5603) No growth in 5 days [id number] 05:51:00* Test Item Value Reference Range Comments PHOSPHORUS (BEAKER) (test eega=840) 4.2 mg/dL 2.3-4.7 [id number] 05:51:00* Test Item Value Reference Range Comments MAGNESIUM (BEAKER) (test bdqw=498) 1.9 mg/dL 1.6-2.6 BASIC METABOLIC [id number] 05:51:00* Test Item Value Reference Range Comments SODIUM (BEAKER) (test hpev=954) 140 meq/L 136-145 POTASSIUM (BEAKER) (test zeec=339) 4.2 meq/L 3.5-5.1 CHLORIDE (BEAKER) (test swej=262) 103 meq/L 98-107 CO2 (BEAKER) (test adzf=356) 28 meq/L 22-29 BLOOD UREA NITROGEN (BEAKER) (test zdra=064) 14 mg/dL 7-21 CREATININE (BEAKER) (test poma=759) 0.83 mg/dL 0.57-1.25 GLUCOSE RANDOM (BEAKER) (test iavb=524) 101 mg/dL 70-105 CALCIUM (BEAKER) (test yibx=159) 9.4 mg/dL 8.4-10.2 EGFR (BEAKER) (test vcxq=2417) 91 mL/min/1.73 sq m ESTIMATED GFR IS NOT ACCURATE CREATININE CLEARANCE IN PREDICTING GLOMERULAR FILTRATION RATE. ESTIMATED GFR IS NOT APPLICABLE FOR DIALYSIS PATIENTS. CBC W/PLT COUNT & AUTO [id number] 05:50:00* Test Item Value Reference Range Comments WHITE BLOOD CELL COUNT (BEAKER) (test nzad=250) 8.1 K/ L 4.0-10.0 RED BLOOD CELL COUNT (BEAKER) (test nxos=171) 3.24 M/ L 4.20-5.80 HEMOGLOBIN (BEAKER) (test npjr=971) 8.7 GM/DL 13.0-16.8 HEMATOCRIT (BEAKER) (test fbgr=821) 27.2 % 40.0-50.0 MEAN CORPUSCULAR VOLUME (BEAKER) (test fmrp=396) 83.7 fL 82.0-98.0 MEAN CORPUSCULAR HEMOGLOBIN (BEAKER) (test nvqc=123) 26.7 pg 27.0-33.0 MEAN CORPUSCULAR HEMOGLOBIN CONC (BEAKER) (test fahn=068) 31.9 GM/DL 32.0-36.0 RED CELL DISTRIBUTION WIDTH (BEAKER) (test ajqd=098) 21.5 % 10.3-14.2 PLATELET COUNT (BEAKER) (test kupm=594) 258 K/CU MM 150-430 MEAN PLATELET VOLUME (BEAKER) (test mguo=856) 7.6 fL 6.5-10.5 NUCLEATED RED BLOOD CELLS (BEAKER) (test flmi=089) 0 /100 WBC 0-0 NEUTROPHILS RELATIVE PERCENT (BEAKER) (test mlqx=563) 62 % LYMPHOCYTES RELATIVE PERCENT (BEAKER) (test odbb=145) 24 % MONOCYTES RELATIVE PERCENT (BEAKER) (test vqvc=440) 10 % EOSINOPHILS RELATIVE PERCENT (BEAKER) (test bnix=402) 4 % BASOPHILS RELATIVE PERCENT (BEAKER) (test gkla=473) 0 % NEUTROPHILS ABSOLUTE COUNT (BEAKER) (test htpe=167) 5.05 K/ L 1.80-8.00 LYMPHOCYTES ABSOLUTE COUNT (BEAKER) (test tfdz=795) 1.94 K/ L 1.48-4.50 MONOCYTES ABSOLUTE COUNT (BEAKER) (test bigh=477) 0.77 K/ L 0.00-1.30 EOSINOPHILS ABSOLUTE COUNT (BEAKER) (test qpef=898) 0.32 K/ L 0.00-0.50 BASOPHILS ABSOLUTE COUNT (BEAKER) (test irdc=934) 0.01 K/ L 0.00-0.20 0.00OCCULT BLOOD, [id number] 23:01:00* Test Item Value Reference Range Comments FECAL OCCULT BLOOD (BEAKER) (test dsfs=361) Positive Negative VITAMIN D, [id number] 06:32:00* Test Item Value Reference Range Comments VITAMIN D 25-OH (BEAKER) (test jorp=0201) 27.0 ng/mL 13.0-47.8 CBC W/PLT COUNT & AUTO [id number] 05:40:00* Test Item Value Reference Range Comments WHITE BLOOD CELL COUNT (BEAKER) (test lwho=242) 10.1 K/ L 4.0-10.0 RED BLOOD CELL COUNT (BEAKER) (test avhs=912) 3.15 M/ L 4.20-5.80 HEMOGLOBIN (BEAKER) (test ccgk=597) 8.6 GM/DL 13.0-16.8 HEMATOCRIT (BEAKER) (test nrfj=412) 26.2 % 40.0-50.0 MEAN CORPUSCULAR VOLUME (BEAKER) (test tszj=649) 83.3 fL 82.0-98.0 MEAN CORPUSCULAR HEMOGLOBIN (BEAKER) (test pnsw=140) 27.4 pg 27.0-33.0 MEAN CORPUSCULAR HEMOGLOBIN CONC (BEAKER) (test tqyj=727) 32.9 GM/DL 32.0-36.0 RED CELL DISTRIBUTION WIDTH (BEAKER) (test dvde=112) 19.8 % 10.3-14.2 PLATELET COUNT (BEAKER) (test swxn=495) 265 K/CU MM 150-430 MEAN PLATELET VOLUME (BEAKER) (test hibw=416) 7.2 fL 6.5-10.5 NUCLEATED RED BLOOD CELLS (BEAKER) (test fvzy=142) 0 /100 WBC 0-0 NEUTROPHILS RELATIVE PERCENT (BEAKER) (test xzwd=319) 68 % LYMPHOCYTES RELATIVE PERCENT (BEAKER) (test mbtj=041) 21 % MONOCYTES RELATIVE PERCENT (BEAKER) (test tyuk=467) 8 % EOSINOPHILS RELATIVE PERCENT (BEAKER) (test rrsi=946) 2 % BASOPHILS RELATIVE PERCENT (BEAKER) (test iakn=686) 0 % NEUTROPHILS ABSOLUTE COUNT (BEAKER) (test gevw=782) 6.90 K/ L 1.80-8.00 LYMPHOCYTES ABSOLUTE COUNT (BEAKER) (test emqo=092) 2.12 K/ L 1.48-4.50 MONOCYTES ABSOLUTE COUNT (BEAKER) (test ghnz=740) 0.86 K/ L 0.00-1.30 EOSINOPHILS ABSOLUTE COUNT (BEAKER) (test donh=093) 0.22 K/ L 0.00-0.50 BASOPHILS ABSOLUTE COUNT (BEAKER) (test rspo=045) 0.01 K/ L 0.00-0.20 [id number] 05:32:00* Test Item Value Reference Range Comments PHOSPHORUS (BEAKER) (test ldtq=517) 3.4 mg/dL 2.3-4.7 [id number] 05:32:00* Test Item Value Reference Range Comments MAGNESIUM (BEAKER) (test wrwn=783) 2.0 mg/dL 1.6-2.6 BASIC METABOLIC [id number] 05:32:00* Test Item Value Reference Range Comments SODIUM (BEAKER) (test nzkd=818) 141 meq/L 136-145 POTASSIUM (BEAKER) (test gawy=822) 4.3 meq/L 3.5-5.1 CHLORIDE (BEAKER) (test grjl=818) 103 meq/L 98-107 CO2 (BEAKER) (test aoqo=071) 30 meq/L 22-29 BLOOD UREA NITROGEN (BEAKER) (test ehwi=059) 14 mg/dL 7-21 CREATININE (BEAKER) (test qnir=117) 0.87 mg/dL 0.57-1.25 GLUCOSE RANDOM (BEAKER) (test otbp=412) 107 mg/dL 70-105 CALCIUM (BEAKER) (test txyx=666) 9.3 mg/dL 8.4-10.2 EGFR (BEAKER) (test msqu=9681) 86 mL/min/1.73 sq m ESTIMATED GFR IS NOT ACCURATE CREATININE CLEARANCE IN PREDICTING GLOMERULAR FILTRATION RATE. ESTIMATED GFR IS NOT APPLICABLE FOR DIALYSIS PATIENTS. TISSUE [id number] 16:42:00Surgical Pathology Report Case: [id number] Authorizing Provider: Staci Ham MD Collected: 01/09/2017 1329 Ordering Location: [address] Received: 01/12/2017 1035 Service Pathologist: Shiraz Beck MD Specimen: Gastric STOMACH, ENDOSCOPIC MUCOSAL BIOPSIES- ANTRAL AND OXYNTIC MUCOSA WITH MILD CHRONIC INACTIVE GASTRITIS- NEGATIVE FOR HELICOBACTER PYLORI- NEGATIVE FOR INTESTINAL METAPLASIA, DYSPLASIA OR CARCINOMA 74950, 20891YslbnxRfvhcyp biopsy Received in formalin labeled "gastric" are three fragments measuring 0.6 x 0.5 x 0.1 cm in aggregate. The specimen is entirely submitted in A1. DB/ew Microscopic examination is performed and the findings are incorporated in the diagnostic line. Warthin starry stain is negative for Helicobacter pylori. [id number] 05:30:00* Test Item Value Reference Range Comments MAGNESIUM (BEAKER) (test vybw=506) 1.6 mg/dL 1.6-2.6 BASIC METABOLIC [id number] 05:30:00* Test Item Value Reference Range Comments SODIUM (BEAKER) (test cgwb=033) 141 meq/L 136-145 POTASSIUM (BEAKER) (test zkph=021) 4.1 meq/L 3.5-5.1 CHLORIDE (BEAKER) (test hjmq=952) 105 meq/L 98-107 CO2 (BEAKER) (test ksuw=156) 27 meq/L 22-29 BLOOD UREA NITROGEN (BEAKER) (test zwbr=221) 10 mg/dL 7-21 CREATININE (BEAKER) (test csro=623) 0.78 mg/dL 0.57-1.25 GLUCOSE RANDOM (BEAKER) (test ouwv=458) 104 mg/dL 70-105 CALCIUM (BEAKER) (test ukkt=196) 9.1 mg/dL 8.4-10.2 EGFR (BEAKER) (test mfuj=2320) 97 mL/min/1.73 sq m ESTIMATED GFR IS NOT ACCURATE CREATININE CLEARANCE IN PREDICTING GLOMERULAR FILTRATION RATE. ESTIMATED GFR IS NOT APPLICABLE FOR DIALYSIS PATIENTS. HEMOGLOBIN AND [id number] 05:30:00* Test Item Value Reference Range Comments HEMOGLOBIN (BEAKER) (test nxqs=445) 8.6 GM/DL 13.0-16.8 HEMATOCRIT (BEAKER) (test ztpx=417) 27.2 % 40.0-50.0 [id number] 05:31:00* Test Item Value Reference Range Comments MAGNESIUM (BEAKER) (test adgd=342) 2.1 mg/dL 1.6-2.6 BASIC METABOLIC [id number] 05:31:00* Test Item Value Reference Range Comments SODIUM (BEAKER) (test zkiw=029) 142 meq/L 136-145 POTASSIUM (BEAKER) (test oajo=740) 3.7 meq/L 3.5-5.1 CHLORIDE (BEAKER) (test ldtl=821) 108 meq/L 98-107 CO2 (BEAKER) (test vdth=375) 25 meq/L 22-29 BLOOD UREA NITROGEN (BEAKER) (test nijf=518) 8 mg/dL 7-21 CREATININE (BEAKER) (test stpm=064) 0.80 mg/dL 0.57-1.25 GLUCOSE RANDOM (BEAKER) (test akvw=680) 119 mg/dL 70-105 CALCIUM (BEAKER) (test fiss=940) 8.6 mg/dL 8.4-10.2 EGFR (BEAKER) (test hhrc=7605) 94 mL/min/1.73 sq m ESTIMATED GFR IS NOT ACCURATE CREATININE CLEARANCE IN PREDICTING GLOMERULAR FILTRATION RATE. ESTIMATED GFR IS NOT APPLICABLE FOR DIALYSIS PATIENTS. CBC W/PLT COUNT & AUTO [id number] 05:06:00* Test Item Value Reference Range Comments WHITE BLOOD CELL COUNT (BEAKER) (test uhjf=094) 6.4 K/ L 4.0-10.0 RED BLOOD CELL COUNT (BEAKER) (test qsxg=131) 3.43 M/ L 4.20-5.80 HEMOGLOBIN (BEAKER) (test wych=322) 8.7 GM/DL 13.0-16.8 HEMATOCRIT (BEAKER) (test ufin=206) 28.0 % 40.0-50.0 MEAN CORPUSCULAR VOLUME (BEAKER) (test orqa=512) 81.7 fL 82.0-98.0 MEAN CORPUSCULAR HEMOGLOBIN (BEAKER) (test liku=172) 25.4 pg 27.0-33.0 MEAN CORPUSCULAR HEMOGLOBIN CONC (BEAKER) (test vzsw=311) 31.1 GM/DL 32.0-36.0 RED CELL DISTRIBUTION WIDTH (BEAKER) (test zsut=856) 17.9 % 10.3-14.2 PLATELET COUNT (BEAKER) (test vkmy=967) 282 K/CU MM 150-430 MEAN PLATELET VOLUME (BEAKER) (test inll=844) 7.1 fL 6.5-10.5 NUCLEATED RED BLOOD CELLS (BEAKER) (test krva=976) 0 /100 WBC 0-0 NEUTROPHILS RELATIVE PERCENT (BEAKER) (test hpbo=380) 63 % LYMPHOCYTES RELATIVE PERCENT (BEAKER) (test ifmf=422) 27 % MONOCYTES RELATIVE PERCENT (BEAKER) (test lczi=541) 8 % EOSINOPHILS RELATIVE PERCENT (BEAKER) (test rbyi=256) 2 % BASOPHILS RELATIVE PERCENT (BEAKER) (test abui=387) 0 % NEUTROPHILS ABSOLUTE COUNT (BEAKER) (test uhfg=083) 4.00 K/ L 1.80-8.00 LYMPHOCYTES ABSOLUTE COUNT (BEAKER) (test uuan=516) 1.71 K/ L 1.48-4.50 MONOCYTES ABSOLUTE COUNT (BEAKER) (test bztc=897) 0.51 K/ L 0.00-1.30 EOSINOPHILS ABSOLUTE COUNT (BEAKER) (test wtsb=320) 0.14 K/ L 0.00-0.50 BASOPHILS ABSOLUTE COUNT (BEAKER) (test sgps=165) 0.02 K/ L 0.00-0.20 [id number] 11:28:00* Test Item Value Reference Range Comments MAGNESIUM (BEAKER) (test bxcz=588) 1.3 mg/dL 1.6-2.6 BASIC METABOLIC [id number] 11:28:00* Test Item Value Reference Range Comments SODIUM (BEAKER) (test qkvb=063) 141 meq/L 136-145 POTASSIUM (BEAKER) (test wzrz=569) 3.7 meq/L 3.5-5.1 CHLORIDE (BEAKER) (test tdej=660) 106 meq/L 98-107 CO2 (BEAKER) (test glqi=560) 27 meq/L 22-29 BLOOD UREA NITROGEN (BEAKER) (test tvvh=402) 8 mg/dL 7-21 CREATININE (BEAKER) (test shmd=619) 0.89 mg/dL 0.57-1.25 GLUCOSE RANDOM (BEAKER) (test gtlc=539) 198 mg/dL 70-105 CALCIUM (BEAKER) (test srhc=982) 9.0 mg/dL 8.4-10.2 EGFR (BEAKER) (test jgrh=2943) 84 mL/min/1.73 sq m ESTIMATED GFR IS NOT ACCURATE CREATININE CLEARANCE IN PREDICTING GLOMERULAR FILTRATION RATE. ESTIMATED GFR IS NOT APPLICABLE FOR DIALYSIS PATIENTS. CBC W/PLT COUNT & AUTO [id number] 10:59:00* Test Item Value Reference Range Comments WHITE BLOOD CELL COUNT (BEAKER) (test gbyg=012) 7.1 K/ L 4.0-10.0 RED BLOOD CELL COUNT (BEAKER) (test vxwz=194) 3.58 M/ L 4.20-5.80 HEMOGLOBIN (BEAKER) (test uvir=908) 9.5 GM/DL 13.0-16.8 HEMATOCRIT (BEAKER) (test pmdo=225) 29.1 % 40.0-50.0 MEAN CORPUSCULAR VOLUME (BEAKER) (test gpur=733) 81.1 fL 82.0-98.0 MEAN CORPUSCULAR HEMOGLOBIN (BEAKER) (test bpum=306) 26.4 pg 27.0-33.0 MEAN CORPUSCULAR HEMOGLOBIN CONC (BEAKER) (test hmoi=407) 32.5 GM/DL 32.0-36.0 RED CELL DISTRIBUTION WIDTH (BEAKER) (test islx=257) 17.3 % 10.3-14.2 PLATELET COUNT (BEAKER) (test smhu=676) 308 K/CU MM 150-430 MEAN PLATELET VOLUME (BEAKER) (test fhmy=019) 7.2 fL 6.5-10.5 NUCLEATED RED BLOOD CELLS (BEAKER) (test jwrl=102) 0 /100 WBC 0-0 NEUTROPHILS RELATIVE PERCENT (BEAKER) (test zgdx=655) 81 % LYMPHOCYTES RELATIVE PERCENT (BEAKER) (test ddqc=912) 14 % MONOCYTES RELATIVE PERCENT (BEAKER) (test kbba=773) 4 % EOSINOPHILS RELATIVE PERCENT (BEAKER) (test ijmw=240) 2 % BASOPHILS RELATIVE PERCENT (BEAKER) (test pwcg=752) 0 % NEUTROPHILS ABSOLUTE COUNT (BEAKER) (test aiqo=238) 5.76 K/ L 1.80-8.00 LYMPHOCYTES ABSOLUTE COUNT (BEAKER) (test fwrn=894) 0.98 K/ L 1.48-4.50 MONOCYTES ABSOLUTE COUNT (BEAKER) (test rgfv=285) 0.26 K/ L 0.00-1.30 EOSINOPHILS ABSOLUTE COUNT (BEAKER) (test wkew=740) 0.11 K/ L 0.00-0.50 BASOPHILS ABSOLUTE COUNT (BEAKER) (test jehu=350) 0.03 K/ L 0.00-0.20 0.00CBC W/PLT COUNT & AUTO [id number] 15:31:00* Test Item Value Reference Range Comments WHITE BLOOD CELL COUNT (BEAKER) (test kixc=477) 6.9 K/ L 4.0-10.0 RED BLOOD CELL COUNT (BEAKER) (test tucb=739) 4.00 M/ L 4.20-5.80 HEMOGLOBIN (BEAKER) (test egsm=348) 10.3 GM/DL 13.0-16.8 HEMATOCRIT (BEAKER) (test bglw=362) 32.6 % 40.0-50.0 MEAN CORPUSCULAR VOLUME (BEAKER) (test fcvi=337) 81.3 fL 82.0-98.0 MEAN CORPUSCULAR HEMOGLOBIN (BEAKER) (test vesq=118) 25.7 pg 27.0-33.0 MEAN CORPUSCULAR HEMOGLOBIN CONC (BEAKER) (test zdax=493) 31.6 GM/DL 32.0-36.0 RED CELL DISTRIBUTION WIDTH (BEAKER) (test fgjf=773) 19.2 % 10.3-14.2 PLATELET COUNT (BEAKER) (test ihic=396) 330 K/CU MM 150-430 MEAN PLATELET VOLUME (BEAKER) (test bish=117) 8.1 fL 6.5-10.5 NUCLEATED RED BLOOD CELLS (BEAKER) (test dwqi=515) 0 /100 WBC 0-0 NEUTROPHILS RELATIVE PERCENT (BEAKER) (test tvsu=430) 59 % LYMPHOCYTES RELATIVE PERCENT (BEAKER) (test kwsg=709) 28 % MONOCYTES RELATIVE PERCENT (BEAKER) (test qjkp=449) 7 % EOSINOPHILS RELATIVE PERCENT (BEAKER) (test xjxj=032) 5 % BASOPHILS RELATIVE PERCENT (BEAKER) (test iahj=282) 0 % NEUTROPHILS ABSOLUTE COUNT (BEAKER) (test junh=266) 4.06 K/ L 1.80-8.00 LYMPHOCYTES ABSOLUTE COUNT (BEAKER) (test hath=895) 1.95 K/ L 1.48-4.50 MONOCYTES ABSOLUTE COUNT (BEAKER) (test lcdm=571) 0.51 K/ L 0.00-1.30 EOSINOPHILS ABSOLUTE COUNT (BEAKER) (test dslq=417) 0.32 K/ L 0.00-0.50 BASOPHILS ABSOLUTE COUNT (BEAKER) (test zkag=464) 0.03 K/ L 0.00-0.20 [id number] 06:00:00* Test Item Value Reference Range Comments MAGNESIUM (BEAKER) (test pefa=090) 1.9 mg/dL 1.6-2.6 Specimen moderately hemolyzed [id number] 06:00:00* Test Item Value Reference Range Comments PHOSPHORUS (BEAKER) (test ogxn=085) 2.1 mg/dL 2.3-4.7 Specimen moderately hemolyzed BASIC METABOLIC [id number] 06:00:00* Test Item Value Reference Range Comments SODIUM (BEAKER) (test shlx=033) 143 meq/L 136-145 POTASSIUM (BEAKER) (test yzud=160) 4.5 meq/L 3.5-5.1 Specimen moderately hemolyzed CHLORIDE (BEAKER) (test oxbl=198) 108 meq/L 98-107 CO2 (BEAKER) (test nrnc=988) 24 meq/L 22-29 BLOOD UREA NITROGEN (BEAKER) (test xhmc=493) 8 mg/dL 7-21 CREATININE (BEAKER) (test zglx=568) 0.77 mg/dL 0.57-1.25 Specimen moderately hemolyzed GLUCOSE RANDOM (BEAKER) (test lrvj=279) 93 mg/dL 70-105 CALCIUM (BEAKER) (test epuk=453) 9.4 mg/dL 8.4-10.2 EGFR (BEAKER) (test wztf=5088) 99 mL/min/1.73 sq m ESTIMATED GFR IS NOT ACCURATE CREATININE CLEARANCE IN PREDICTING GLOMERULAR FILTRATION RATE. ESTIMATED GFR IS NOT APPLICABLE FOR DIALYSIS PATIENTS. LACTATE DEHYDROGENASE (LDH)2017-01-08 18:19:00* Test Item Value Reference Range Comments LACTATE DEHYDROGENASE (BEAKER) (test qcyj=815) 216 U/L 125-220 RETICULOCYTE [id number] 18:02:00* Test Item Value Reference Range Comments RETICULOCYTE COUNT PCT (BEAKER) (test sjur=165) 2.0 % 0.4-2.9 RETICULOCYTE [id number] 10:59:00* Test Item Value Reference Range Comments RETICULOCYTE COUNT PCT (BEAKER) (test iuqg=995) 1.7 % 0.4-2.9 CBC W/PLT COUNT & AUTO [id number] 06:15:00* Test Item Value Reference Range Comments WHITE BLOOD CELL COUNT (BEAKER) (test nfbd=009) 4.8 K/ L 4.0-10.0 RED BLOOD CELL COUNT (BEAKER) (test viys=067) 3.28 M/ L 4.20-5.80 HEMOGLOBIN (BEAKER) (test elxz=056) 8.7 GM/DL 13.0-16.8 HEMATOCRIT (BEAKER) (test gbjd=630) 26.8 % 40.0-50.0 MEAN CORPUSCULAR VOLUME (BEAKER) (test uzna=026) 81.8 fL 82.0-98.0 MEAN CORPUSCULAR HEMOGLOBIN (BEAKER) (test iqxy=665) 26.4 pg 27.0-33.0 MEAN CORPUSCULAR HEMOGLOBIN CONC (BEAKER) (test jvul=686) 32.3 GM/DL 32.0-36.0 RED CELL DISTRIBUTION WIDTH (BEAKER) (test rtcy=605) 17.5 % 10.3-14.2 PLATELET COUNT (BEAKER) (test dqce=580) 242 K/CU MM 150-430 MEAN PLATELET VOLUME (BEAKER) (test yhub=305) 7.4 fL 6.5-10.5 NUCLEATED RED BLOOD CELLS (BEAKER) (test tgur=445) 0 /100 WBC 0-0 NEUTROPHILS RELATIVE PERCENT (BEAKER) (test ildw=947) 59 % LYMPHOCYTES RELATIVE PERCENT (BEAKER) (test qacl=449) 30 % MONOCYTES RELATIVE PERCENT (BEAKER) (test ausa=264) 7 % EOSINOPHILS RELATIVE PERCENT (BEAKER) (test lukb=489) 4 % BASOPHILS RELATIVE PERCENT (BEAKER) (test wxjr=675) 0 % NEUTROPHILS ABSOLUTE COUNT (BEAKER) (test yiyx=076) 2.83 K/ L 1.80-8.00 LYMPHOCYTES ABSOLUTE COUNT (BEAKER) (test hlpw=458) 1.45 K/ L 1.48-4.50 MONOCYTES ABSOLUTE COUNT (BEAKER) (test xooj=479) 0.33 K/ L 0.00-1.30 EOSINOPHILS ABSOLUTE COUNT (BEAKER) (test knbi=293) 0.18 K/ L 0.00-0.50 BASOPHILS ABSOLUTE COUNT (BEAKER) (test ijqb=525) 0.02 K/ L 0.00-0.20 [id number] 04:51:00* Test Item Value Reference Range Comments PHOSPHORUS (BEAKER) (test uoug=213) 2.3 mg/dL 2.3-4.7 BASIC METABOLIC [id number] 04:51:00* Test Item Value Reference Range Comments SODIUM (BEAKER) (test ppmo=005) 143 meq/L 136-145 POTASSIUM (BEAKER) (test ybkd=476) 3.3 meq/L 3.5-5.1 CHLORIDE (BEAKER) (test eanm=966) 109 meq/L 98-107 CO2 (BEAKER) (test oajo=041) 28 meq/L 22-29 BLOOD UREA NITROGEN (BEAKER) (test tgcc=490) 13 mg/dL 7-21 CREATININE (BEAKER) (test zych=086) 0.73 mg/dL 0.57-1.25 GLUCOSE RANDOM (BEAKER) (test kpko=103) 91 mg/dL 70-105 CALCIUM (BEAKER) (test dgyw=045) 8.4 mg/dL 8.4-10.2 EGFR (BEAKER) (test coha=7764) 105 mL/min/1.73 sq m ESTIMATED GFR IS NOT ACCURATE CREATININE CLEARANCE IN PREDICTING GLOMERULAR FILTRATION RATE. ESTIMATED GFR IS NOT APPLICABLE FOR DIALYSIS PATIENTS. URINALYSIS W/ [id number] 10:19:00* Test Item Value Reference Range Comments COLOR (BEAKER) (test qird=123) Yellow CLARITY (BEAKER) (test ncgi=053) Clear SPECIFIC GRAVITY UA (BEAKER) (test vtnv=827) 1.011 1.001-1.035 PH UA (BEAKER) (test yhwl=714) 5.5 5.0-8.0 PROTEIN UA (BEAKER) (test huhi=318) Negative Negative GLUCOSE UA (BEAKER) (test pnoe=589) Negative Negative KETONES UA (BEAKER) (test aqgv=886) Negative Negative BILIRUBIN UA (BEAKER) (test gpak=732) Negative Negative BLOOD UA (BEAKER) (test zpsd=707) Negative Negative NITRITE UA (BEAKER) (test ckcx=501) Negative Negative LEUKOCYTE ESTERASE UA (BEAKER) (test vtjp=526) Negative Negative UROBILINOGEN UA (BEAKER) (test bfjx=727) 0.2 mg/dL 0.2-1.0 RBC UA (BEAKER) (test lelg=660) 0 /HPF WBC UA (BEAKER) (test cxww=647) < /HPF HYALINE CASTS (BEAKER) (test jpjp=161) 2 /LPF CASTS (BEAKER) (test pmhf=4882) 2 /LPF SOURCE(BEAKER) (test qtqr=6715) Urine, Clean Catch [id number] 10:16:00* Test Item Value Reference Range Comments FERRITIN (BEAKER) (test fojc=750) 17 ng/mL 5-275 Effective 05/16/2014: Reference Range ChangeNew: Male 5-275 Previous: Male 22-322 Female 5-275 Female 10-291 VITAMIN B12 AND FOLATE 2017-01-07 10:16:00* Test Item Value Reference Range Comments VITAMIN B12 (BEAKER) (test bvjc=869) 340 pg/mL 213-816 FOLATE (BEAKER) (test oqfq=075) 6.5 ng/mL >=7.0 Effective 05/16/2014: Folate Reference Range ChangeNew: >=7.0 Previous: >=5.4 IRON, TIBC, % SAT. (WITHOUT FERRITIN)2017-01-07 09:49:00* Test Item Value Reference Range Comments IRON (BEAKER) (test pxue=628) 15 ug/dL 40-160 TOTAL IRON BINDING CAPACITY (BEAKER) (test mwhk=400) 358 ug/dL 250-450 IRON % SATURATION (2) (BEAKER) (test udxv=8068) 4 % 20-55 RETICULOCYTE [id number] 09:27:00* Test Item Value Reference Range Comments RETICULOCYTE COUNT PCT (BEAKER) (test tstr=503) 1.9 % 0.4-2.9 CBC W/PLT COUNT & AUTO [id number] 06:08:00* Test Item Value Reference Range Comments WHITE BLOOD CELL COUNT (BEAKER) (test cyfq=123) 6.1 K/ L 4.0-10.0 RED BLOOD CELL COUNT (BEAKER) (test yiqo=463) 3.33 M/ L 4.20-5.80 HEMOGLOBIN (BEAKER) (test ercm=741) 8.5 GM/DL 13.0-16.8 HEMATOCRIT (BEAKER) (test usri=111) 27.3 % 40.0-50.0 MEAN CORPUSCULAR VOLUME (BEAKER) (test gzxl=778) 82.2 fL 82.0-98.0 MEAN CORPUSCULAR HEMOGLOBIN (BEAKER) (test jwai=806) 25.4 pg 27.0-33.0 MEAN CORPUSCULAR HEMOGLOBIN CONC (BEAKER) (test nulv=918) 30.9 GM/DL 32.0-36.0 RED CELL DISTRIBUTION WIDTH (BEAKER) (test yzuw=039) 16.3 % 10.3-14.2 PLATELET COUNT (BEAKER) (test ttrd=150) 269 K/CU MM 150-430 MEAN PLATELET VOLUME (BEAKER) (test qjvp=244) 7.1 fL 6.5-10.5 NUCLEATED RED BLOOD CELLS (BEAKER) (test jxhu=885) 0 /100 WBC 0-0 NEUTROPHILS RELATIVE PERCENT (BEAKER) (test yasn=716) 57 % LYMPHOCYTES RELATIVE PERCENT (BEAKER) (test hscc=552) 32 % MONOCYTES RELATIVE PERCENT (BEAKER) (test eigp=476) 9 % EOSINOPHILS RELATIVE PERCENT (BEAKER) (test zhbj=180) 2 % BASOPHILS RELATIVE PERCENT (BEAKER) (test ktli=658) 0 % NEUTROPHILS ABSOLUTE COUNT (BEAKER) (test pwhl=777) 3.48 K/ L 1.80-8.00 LYMPHOCYTES ABSOLUTE COUNT (BEAKER) (test zmou=201) 1.96 K/ L 1.48-4.50 MONOCYTES ABSOLUTE COUNT (BEAKER) (test iuvm=691) 0.52 K/ L 0.00-1.30 EOSINOPHILS ABSOLUTE COUNT (BEAKER) (test xloc=134) 0.13 K/ L 0.00-0.50 BASOPHILS ABSOLUTE COUNT (BEAKER) (test qzzs=035) 0.02 K/ L 0.00-0.20 [id number] 05:53:00* Test Item Value Reference Range Comments PHOSPHORUS (BEAKER) (test jyoc=749) 4.0 mg/dL 2.3-4.7 [id number] 05:53:00* Test Item Value Reference Range Comments MAGNESIUM (BEAKER) (test ovng=067) 1.5 mg/dL 1.6-2.6 BASIC METABOLIC [id number] 05:53:00* Test Item Value Reference Range Comments SODIUM (BEAKER) (test ztgu=424) 143 meq/L 136-145 POTASSIUM (BEAKER) (test shwg=917) 2.9 meq/L 3.5-5.1 CHLORIDE (BEAKER) (test ekap=462) 105 meq/L 98-107 CO2 (BEAKER) (test rqtz=617) 28 meq/L 22-29 BLOOD UREA NITROGEN (BEAKER) (test oilw=652) 14 mg/dL 7-21 CREATININE (BEAKER) (test cpxx=722) 0.87 mg/dL 0.57-1.25 GLUCOSE RANDOM (BEAKER) (test bonw=650) 111 mg/dL 70-105 CALCIUM (BEAKER) (test jyzz=138) 8.8 mg/dL 8.4-10.2 EGFR (BEAKER) (test bipi=9017) 86 mL/min/1.73 sq m ESTIMATED GFR IS NOT ACCURATE CREATININE CLEARANCE IN PREDICTING GLOMERULAR FILTRATION RATE. ESTIMATED GFR IS NOT APPLICABLE FOR DIALYSIS PATIENTS. [id number] 11:12:00* Test Item Value Reference Range Comments RPR SCREEN (BEAKER) (test vxek=647) Nonreactive Nonreactive HEMOGLOBIN [id number] 10:11:00* Test Item Value Reference Range Comments HEMOGLOBIN A1C (BEAKER) (test bwci=560) 4.9 % 4.3-6.1 TSH/FREE T4 IF [id number] 07:39:00* Test Item Value Reference Range Comments THYROID STIMULATING HORMONE (BEAKER) (test zxnx=956) 1.05 uIU/mL 0.35-4.94 VITAMIN B12 AND [id number] 07:39:00* Test Item Value Reference Range Comments VITAMIN B12 (BEAKER) (test qkqk=194) 324 pg/mL 213-816 FOLATE (BEAKER) (test ncjk=451) 8.7 ng/mL >=7.0 Effective 05/16/2014: Folate Reference Range ChangeNew: >=7.0 Previous: >=5.4 LIPID [id number] 07:05:00* Test Item Value Reference Range Comments TRIGLYCERIDES (BEAKER) (test vxzc=430) 137 mg/dL CHOLESTEROL (BEAKER) (test uidq=704) 151 mg/dL HDL CHOLESTEROL (BEAKER) (test erda=852) 27 mg/dL LDL CHOLESTEROL CALCULATED (BEAKER) (test exjr=244) 97 mg/dL Triglyceride Reference Range: Low Risk <150 Borderline 150-199 High Risk 200-499 Very High Risk >=500Cholesterol Reference Range: Low Risk <200 Borderline 200-239 High Risk >240HDL Cholesterol Reference Range: Low Risk >=60 High Risk <40LDL Cholesterol Reference Range: Optimal <100 Near Optimal 100-129 Borderline 130-159 High 160-189 Very High >=190 POCT- LACTIC ACID, [id number] 03:03:00* Test Item Value Reference Range Comments POC-LACTIC ACID, VENOUS (BEAKER) (test yice=8914) 2.1 mmol/L 0.9-1.[address] [facility] [address] [facility] [address] CREATINE KINASE (CK), TOTAL AND [id number] 00:01:00* Test Item Value Reference Range Comments CREATINE KINASE TOTAL (BEAKER) (test wbey=044) 87 U/L 29-200 CREATINE KINASE-MB (BEAKER) (test vuaw=127) 2.2 ng/mL 0.0-6.6 CREATINE KINASE-MB INDEX (BEAKER) (test wlyk=874) 2.5 % Effective 05/16/2014: CK-MB Reference Range ChangeNew: 0.0-6.6 Previous: 0.0- 4.9CK-MB Reference Range:<6.7 Normal6.7-10.0 Borderline>10.0 Abnormal TROPONIN [id number] 00:01:00* Test Item Value Reference Range Comments TROPONIN I (BEAKER) (test kkox=610) 0.02 ng/mL 0.00-0.03 Effective 05/16/2014: Reference Range ChangeNew: 0.00-0.03 Previous 0.00-0.15T roponin I (TnI) levels must be interpreted in the context of the presenting symp toms and the clinical findings. Elevated TnI levels indicate myocardial damage, but are not specific for ischemic heart disease. Elevated TnI levels are seen in patients with other cardiac conditions (including myocarditis and congestive he art failure), and slight TnI elevations occur in patients with other conditions, including sepsis, renal failure, acidosis, acute neurological disease, and pers istent tachyarrhythmia.[id number] 23:55:00* Test Item Value Reference Range Comments MAGNESIUM (BEAKER) (test xwnj=804) 1.7 mg/dL 1.6-2.6 COMPREHENSIVE METABOLIC [id number] 23:55:00* Test Item Value Reference Range Comments TOTAL PROTEIN (BEAKER) (test dtbc=970) 6.8 gm/dL 6.0-8.3 ALBUMIN (BEAKER) (test hmvi=2235) 3.7 g/dL 3.5-5.0 ALKALINE PHOSPHATASE (BEAKER) (test bvjp=866) 81 U/L 40-150 BILIRUBIN TOTAL (BEAKER) (test jrhj=740) 0.2 mg/dL 0.2-1.2 SODIUM (BEAKER) (test hirp=551) 144 meq/L 136-145 POTASSIUM (BEAKER) (test ejcs=089) 3.6 meq/L 3.5-5.1 CHLORIDE (BEAKER) (test nyie=024) 107 meq/L 98-107 CO2 (BEAKER) (test ndvv=531) 28 meq/L 22-29 BLOOD UREA NITROGEN (BEAKER) (test ewqk=251) 16 mg/dL 7-21 CREATININE (BEAKER) (test sglj=685) 1.16 mg/dL 0.57-1.25 GLUCOSE RANDOM (BEAKER) (test rrsv=032) 117 mg/dL 70-105 CALCIUM (BEAKER) (test lsgs=786) 9.4 mg/dL 8.4-10.2 AST (SGOT) (BEAKER) (test ftpi=117) 10 U/L 5-34 ALT (SGPT) (BEAKER) (test wrrj=472) 8 U/L 6-55 EGFR (BEAKER) (test sgju=7184) 62 mL/min/1.73 sq m ESTIMATED GFR IS NOT ACCURATE CREATININE CLEARANCE IN PREDICTING GLOMERULAR FILTRATION RATE. ESTIMATED GFR IS NOT APPLICABLE FOR DIALYSIS PATIENTS. CBC W/PLT COUNT & AUTO [id number] 23:53:00* Test Item Value Reference Range Comments WHITE BLOOD CELL COUNT (BEAKER) (test qvsm=927) 7.1 K/ L 4.0-10.0 RED BLOOD CELL COUNT (BEAKER) (test iywx=814) 3.89 M/ L 4.20-5.80 HEMOGLOBIN (BEAKER) (test uqez=994) 9.9 GM/DL 13.0-16.8 HEMATOCRIT (BEAKER) (test gbot=040) 31.8 % 40.0-50.0 MEAN CORPUSCULAR VOLUME (BEAKER) (test eeqd=403) 81.7 fL 82.0-98.0 MEAN CORPUSCULAR HEMOGLOBIN (BEAKER) (test vcfl=445) 25.3 pg 27.0-33.0 MEAN CORPUSCULAR HEMOGLOBIN CONC (BEAKER) (test zxcj=988) 31.0 GM/DL 32.0-36.0 RED CELL DISTRIBUTION WIDTH (BEAKER) (test ilam=693) 17.8 % 10.3-14.2 PLATELET COUNT (BEAKER) (test bgqc=915) 304 K/CU MM 150-430 MEAN PLATELET VOLUME (BEAKER) (test dutv=986) 7.0 fL 6.5-10.5 NUCLEATED RED BLOOD CELLS (BEAKER) (test wwnb=028) 0 /100 WBC 0-0 NEUTROPHILS RELATIVE PERCENT (BEAKER) (test gwox=475) 64 % LYMPHOCYTES RELATIVE PERCENT (BEAKER) (test coyh=236) 23 % MONOCYTES RELATIVE PERCENT (BEAKER) (test lodj=247) 12 % EOSINOPHILS RELATIVE PERCENT (BEAKER) (test bkph=149) 1 % BASOPHILS RELATIVE PERCENT (BEAKER) (test wtnc=419) 0 % NEUTROPHILS ABSOLUTE COUNT (BEAKER) (test rxna=934) 4.50 K/ L 1.80-8.00 LYMPHOCYTES ABSOLUTE COUNT (BEAKER) (test qrll=596) 1.64 K/ L 1.48-4.50 MONOCYTES ABSOLUTE COUNT (BEAKER) (test yail=197) 0.84 K/ L 0.00-1.30 EOSINOPHILS ABSOLUTE COUNT (BEAKER) (test bngm=301) 0.09 K/ L 0.00-0.50 BASOPHILS ABSOLUTE COUNT (BEAKER) (test blxt=446) 0.03 K/ L 0.00-0.20 0.00PT/[id number] 23:52:00* Test Item Value Reference Range Comments PROTIME (BEAKER) (test mzzf=070) 14.3 seconds 11.7-14.7 INR (BEAKER) (test kydv=378) 1.1 <=5.9 PARTIAL THROMBOPLASTIN TIME (BEAKER) (test wxzt=513) 28.8 seconds 22.5-36.0 RECOMMENDED COUMADIN/WARFARIN INR THERAPY RANGESSTANDARD DOSE: 2.0 - 3.0 Inclu taylor: PROPHYLAXIS for venous thrombosis, systemic embolization; TREATMENT for mel ous thrombosis and/or pulmonary embolus.HIGH RISK: Target INR is 2.5-3.5 for pat ients with mechanical heart valves.POCT-GLUCOSE [id number] 23:38:00* Test Item Value Reference Range Comments POC-GLUCOSE METER (BEAKER) (test xxoj=2362) 146 mg/dL 70-[address] [facility] [address] [facility] [id number]
--- OUTSIDE RECORDS SUMMARY | 2018-09-22 06:03 | XMS REPORT ---
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
--- OUTSIDE RECORDS SUMMARY | 2018-09-22 06:03 | XMS REPORT ---
Author Author Crystal Singleton Organization [employer] Address Unknown Phone Unavailable Care Team Providers Care Plate Former Name Role Phone Crystal Singleton CP Unavailable [...]
[2018-09-22] MEDS ORDERED: METHYLPREDNISOLONE SOD SUCC 125 MG/2ML VIAL IV ONE (06:15)
[2018-09-22] MEDS ORDERED: ALBUTEROL/IPRATROPIUM 3 ML NEB NEB ONE (06:15)
--- NOTE | 2018-09-22 06:28 | NUR ---
RT NOTIFIED FOR DUONEB TREATMENT.
--- NOTE | 2018-09-22 07:01 | Diagnostic Imaging Report ---
EXAMINATION: CHEST SINGLE (PORTABLE) INDICATION: sob COMPARISON: 04/19/2010 FINDINGS: AP view TUBES and LINES: Left chest wall cardiac pacer. LUNGS: Central pulmonary venous congestion with interstitial opacities extending to the periphery. PLEURA: No pleural effusion or pneumothorax. HEART AND MEDIASTINUM: Mild enlargement of the cardiac silhouette. There are atherosclerotic calcifications within the aorta. BONES AND SOFT TISSUES: No acute osseous lesion. Soft tissues are unremarkable. UPPER ABDOMEN: No free air under the diaphragm. IMPRESSION: Cardiomegaly with mild interstitial edema. Signed by: DR. Felice Sandhu MD on 09/22/2018 6:58 AM
[2018-09-22 07:49] VITALS: BP 172/84
== END 2018-09-22 08:05 | disposition home or self-care (01) ==
LOC: ER 05:51
DX: J45.31 Mild persistent asthma with (acute) exacerbation (principal); J45.22 Mild intermittent asthma with status asthmaticus
CPT/HCPCS: 71045; 94640; 99284; J2930

== ENCOUNTER 2019-01-28 23:24 | Inpatient (IN) | payer MEDICARE ==
[~2019-01-28] VITALS: Ht 170.2 cm; Wt 64.4 kg
--- OUTSIDE RECORDS SUMMARY | 2019-01-28 23:28 | XMS REPORT | Clinical Summary ---
Author Author [facility] Organization [facility] Address Unknown Phone Unavailable Care Team Providers Care Residential Tech Name Role Phone Asked, No Pcp PCP Unavailable Allergies No Known Allergies Medications No known medications Active Problems Problem Noted Date Chronic back pain greater than 3 months duration 12/15/2017 Social History Date Tobacco Use Types Packs/Day Years Used Never Assessed Sex Assigned at Date Recorded Not on file Industry Job Start Date Occupation Not on file Not on file Not on file Travel End Travel History Travel Start No recent travel history available. Last Filed Vital Signs Not on file Plan of Treatment Health Maintenance Due Date Last Done Comments COLONOSCOPY SCREENING 1992 SHINGLES VACCINES (#1) 1992 65+ PNEUMOCOCCAL VACCINE 2007 06/02/2017 (2 of 2 - PPSV23) INFLUENZA VACCINE 01/27/2019 Implants Device Identifier Shelf Expiration Date Model / Serial / Lot Implanted Type 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 er 10/26/2017 [id number] / / [id number] Device Vasclr Clsr Vasoactive Cardiovasc N/A: N/A Intstnl Peptd 6fr Angio-Seal - ular [id number] Implants Implanted: 03/20/2017 (Quantity not on file) [id number] / / [facility] N/A: N/A BSC 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 For more information, sam sandy contact: Jacek Duke [address] [place] [address]
--- OUTSIDE RECORDS SUMMARY | 2019-01-28 23:28 | XMS REPORT | Clinical Summary ---
Author Author LILY Applied [facility]CodeSt[facility] [email or web address] St[facility] Address Unknown Phone Unavailable Care Team Providers Care Senior Infrastructure Architect Name Role Phone Pcp, No PCP Unavailable Allergies No Known Allergies Medications End Date Status Medication Sig Dispensed Refills Start Date Active multivitamin with Take 1 tablet 0 minerals tablet by mouth daily. Active ranitidine (ZANTAC) 150 Take 150 mg 0 MG tablet by mouth 2 (two) times daily. Active ascorbic acid (VITAMIN C) Take 1,000 mg 0 1000 MG tablet by mouth daily. Active aspirin 81 MG EC tablet Take 81 mg by 0 mouth daily. Active ergocalciferol, vitamin Take 1,000 0 D2, (VITAMIN D2) 1,000 Units by unit Cap mouth Pt unsure of dose, frequency, and last time taken . Active albuterol HFA (VENTOLIN Inhale 2 0 HFA) 90 mcg/actuation puffs by 6 inhaler mouth via inhaler 4 (four) times daily. Active blood sugar diagnostic acu check 100 strip 0 (GLUCOSE BLOOD) Strp once daily. 6 Active lancets Misc acucheck once 100 each 0 daily. 6 Active baicalin-catechin Take 500 mg 0 (LIMBREL) 500 mg Cap by mouth 2 (two) times daily. Active pantoprazole (PROTONIX) Take 1 tablet 60 tablet 1 40 MG tablet (40 mg total) 7 by mouth 2 (two) times daily. Active apixaban (ELIQUIS) 5 mg Take 1 tablet 60 tablet 1 Tab tablet (5 mg total) 8 by mouth 2 (two) times daily. 01/29/2019 Active atorvastatin (LIPITOR) 40 Take 1 tablet 30 tablet 1 MG tablet (40 mg total) 8 by mouth nightly. 01/29/2019 Active metoprolol (LOPRESSOR) 25 Take 1 tablet 60 tablet 1 MG tablet (25 mg total) 8 by mouth 2 (two) times daily. 01/29/2019 Active montelukast (SINGULAIR) 5 Take 1 tablet 30 tablet 1 MG chewable tablet (5 mg total) 8 by mouth nightly. 12/29/2019 Active amiodarone (PACERONE) 200 Take 1 tablet 60 tablet 1 MG tablet (200 mg 9 total) by mouth 2 (two) times daily. 12/29/2019 Active clopidogrel (PLAVIX) 75 Take 1 tablet 30 tablet 1 mg tablet (75 mg total) 9 by mouth daily. Active tamsulosin (FLOMAX) 0.4 Take 2 30 capsule 1 mg Cap 24 hr capsule capsules (0.8 9 mg total) by mouth every evening. 12/29/2019 Active furosemide (LASIX) 40 MG Take 1 tablet 30 tablet 1 tablet (40 mg total) 9 by mouth daily. Active lidocaine (LIDODERM) 5 % Place 1 patch 30 patch 0 patch onto the skin 9 daily Remove & Discard patch within 12 hours or as directed by MD. Active xeej-fkkihiqbxighy-ueemto Take 1 tablet 30 tablet 1 ls (THERAGRAN-M) 9 mg by mouth 9 iron-400 mcg Tab tablet daily. 12/18/2018 Discontinued HYDROcodone-acetaminophen Take 1 tablet 0 (NORCO 10-325) 10-325 mg by mouth per tablet every 6 (six) hours as needed. 01/29/2018 Discontinued cyclobenzaprine Take 10 mg by 0 (FLEXERIL) 10 MG tablet mouth 3 (three) times daily as needed for Muscle spasms . 01/29/2018 Discontinued CYMBALTA 60 mg capsule Take 60 mg by 0 mouth 2 (two) 6 times daily . 12/18/2018 Discontinued NYSTOP 100,000 unit/gram Apply 0 powder topically 2 6 (two) times daily Apply to groin area. 01/29/2018 Discontinued ALPRAZolam (NIRAVAM) 0.5 0.5 mg every 0 MG dissolvable night as 6 tabletIndications: needed . Chronic diastolic (congestive) heart failure ([facility]), COPD (chronic obstructive pulmonary disease) with chronic bronchitis ([facility]), Coronary artery disease involving saxman coronary artery of saxman heart without angina pectoris, PAD (peripheral artery disease) ([facility]), Ischemic cardiomyopathy, Presence of permanent cardiac pacemaker, Essential hypertension, Hyperlipidemia, unspecified hyperlipidemia type, Essential hypertension with goal blood pressure less than 130/80, Tachycardia 01/29/2018 Discontinued clopidogrel (PLAVIX) 75 Take 75 mg by 0 mg tablet mouth daily. 01/29/2018 Discontinued multivitamins (FOLTX) Take 1 tablet 90 tablet 0 2-1.13-25 mg Tab tablet by mouth 7 daily. 01/29/2018 Discontinued acetaminophen (TYLENOL) Take 2 30 tablet 0 325 MG tablet tablets (650 8 mg total) by mouth every 4 (four) hours as needed for up to 360 days. 02/28/2018 ALPRAZolam (XANAX) 0.5 MG Take 1 tablet 30 tablet 0 tablet (0.5 mg 8 total) by mouth every night as needed for Anxiety for up to 30 days. Max Daily Amount: 0.5 mg 01/29/2018 Discontinued apixaban (ELIQUIS) 5 mg Take 1 tablet 0 Tab tablet (5 mg total) 8 by mouth 2 (two) times daily. 01/29/2018 Discontinued atorvastatin (LIPITOR) 40 Take 1 tablet 0 MG tablet (40 mg total) 8 by mouth nightly. 01/29/2018 Discontinued bisacodyl (DULCOLAX) 5 mg Take 2 30 tablet 0 EC tablet tablets (10 8 mg total) by mouth daily as needed for Constipation for up to 30 days. 01/29/2018 Discontinued bisacodyl (DULCOLAX) 10 Place 1 12 0 mg suppository suppository suppository 8 (10 mg total) rectally daily as needed for up to 10 days. 01/29/2018 Discontinued budesonide (PULMICORT) Take 2 mLs 60 mL 0 0.5 mg/2 mL nebulizer (0.5 mg 8 solution total) by nebulization 2 (two) times daily. 01/29/2018 Discontinued docusate sodium (COLACE) Take 1 10 capsule 0 100 MG capsule capsule (100 8 mg total) by mouth 2 (two) times daily for 10 days. 01/29/2018 Discontinued dronedarone (MULTAQ) 400 Take 1 tablet 0 mg tablet (400 mg 8 total) by mouth 2 (two) times daily. 01/29/2018 Discontinued furosemide (LASIX) 40 MG Take 1 tablet 0 tablet (40 mg total) 8 by mouth daily. 01/29/2018 Discontinued insulin lispro (HUMALOG) Inject 0-16 10 mL 0 100 unit/mL injection Units 8 subcutaneousl y as needed (High blood sugar). 01/29/2018 Discontinued ipratropium-albuterol Take 3 mLs by 0 (DUO-NEB) 0.5 mg-3 mg(2.5 nebulization 8 mg base)/3 mL nebulizer every 4 solution (four) hours for 360 days. 01/29/2018 Discontinued metoprolol (LOPRESSOR) 25 Take 1 tablet 0 MG tablet (25 mg total) 8 by mouth 2 (two) times daily. 01/29/2018 Discontinued montelukast (SINGULAIR) 5 Take 1 tablet 0 MG chewable tablet (5 mg total) 8 by mouth nightly. 01/29/2018 Discontinued ondansetron (ZOFRAN-ODT) Take 1 tablet 20 tablet 0 4 MG disintegrating (4 mg total) 8 tablet by mouth every 8 (eight) hours as needed for up to 7 days. 01/29/2018 Discontinued predniSONE (DELTASONE) 20 Take 1 tablet 0 MG tablet (20 mg total) 8 by mouth daily for 2 days. 01/29/2018 Discontinued insulin glargine (LANTUS Inject 8 10 mL 0 U-100 INSULIN) 100 Units 8 unit/mL injection subcutaneousl y every morning Use as directed. 01/29/2018 Discontinued insulin lispro (HUMALOG) Inject 3 10 mL 0 100 unit/mL injection Units 8 subcutaneousl y 3 (three) times daily before meals. 12/29/2018 Discontinued dronedarone (MULTAQ) 400 Take 1 tablet 60 tablet 1 mg tablet (400 mg 8 total) by mouth 2 (two) times daily. 02/24/2018 Discontinued furosemide (LASIX) 40 MG Take 1 tablet 30 tablet 1 tablet (40 mg total) 8 by mouth daily. 02/01/2018 predniSONE (DELTASONE) 20 Take 1 tablet 2 tablet 0 MG tablet (20 mg total) 8 by mouth daily for 2 days. 02/26/2018 levoFLOXacin (LEVAQUIN) Take 1 tablet 2 tablet 0 500 MG tablet (500 mg 8 total) by mouth daily for 2 days. 12/18/2018 Discontinued amLODIPine (NORVASC) 5 MG Take 1 tablet 30 tablet 0 tablet (5 mg total) 8 by mouth daily. 12/29/2018 Discontinued zeql-jxxhdaddqctft-grilbz Take 1 tablet 0 ls (THERAGRAN-M) 9 mg by mouth 9 iron-400 mcg Tab tablet daily. 12/29/2018 Discontinued lidocaine (LIDODERM) 5 % Place 1 patch 0 patch onto the skin 9 daily Remove & Discard patch within 12 hours or as directed by MD. 01/08/2019 HYDROcodone-acetaminophen Take 1 tablet 30 tablet 0 (NORCO 10-325) 10-325 mg by mouth 9 per tablet every 4 (four) hours as needed for up to 10 days. Max Daily Amount: 6 tablets 01/08/2019 LORazepam (ATIVAN) 0.5 MG Take 1 tablet 30 tablet 0 tablet (0.5 mg 9 total) by mouth 2 (two) times daily as needed for Anxiety for up to 10 days. Max Daily Amount: 1 mg Active Problems Problem Noted Date Acute upper GI bleed 04/28/2018 GI bleed 04/28/2018 Hospital acquired PNA 02/22/2018 General weakness 02/21/2018 New onset a-fib 01/24/2018 CAD (coronary artery disease) 10/08/2017 Bradycardia 01/28/2017 Syncope 01/28/2017 Hypotension 01/28/2017 Iron deficiency 01/07/2017 Chronic diastolic (congestive) heart failure 04/10/2016 COPD (chronic obstructive pulmonary disease) with chronic bronchitis 04/10/2016 Coronary artery disease involving saxman coronary artery of saxman heart 04/10/2016 without angina pectoris PAD (peripheral artery disease) 04/10/2016 Overview: Carotid Stenosis s/p Rt and Lt CEA Ischemic cardiomyopathy 04/10/2016 GERD (gastroesophageal reflux disease) 04/10/2016 Presence of permanent cardiac pacemaker 04/10/2016 CVA (cerebrovascular accident) 04/10/2016 Essential hypertension 04/10/2016 Hyperlipidemia 04/10/2016 Type 2 diabetes mellitus without complication 03/27/2016 Cardiac pacemaker in situ 03/26/2016 Anemia 10/03/2014 Encounters Care Team Description Date Type Specialty Bert Chavez MD Disease of artery (HCC) (Primary Dx) 01/07/2019 Orders Only Lab Eloy Howard MD PCI 12/23/2018 Surgery Eloy Howard MD L CATH & PCI 12/18/2018 Surgery Tor Lin MD Daniel, Jamuna V., MD Hypotension, unspecified hypotension type (Primary Dx); Altered mental status, unspecified altered mental status type; Coronary artery disease involving saxman coronary artery of saxman heart without angina pectoris 12/12/2018 Hospital Cardiology - Encounter 12/29/2018 12/12/2018 Orders Only General Internal Medicine 12/12/2018 Travel Thanh Sanchez RN 07/06/2018 Orders Only Research Thanh Sanchez, PERICO 07/06/2018 Orders Only Research Thanh Sanchez, PERICO 07/06/2018 Orders Only Research Sarai Nma MD Iron deficiency anemia secondary to inadequate dietary iron intake 05/04/2018 Orders Only Lab Thanh Sanchez RN Iron deficiency anemia secondary to inadequate dietary iron intake (Primary Dx) 05/03/2018 Orders Only Transplant Kyle Ibarra Jr., MD 04/28/2018 Anesthesia Gastroenterology Event Staci Ham MD UPPER ENDOSCOPY 04/28/2018 Surgery Gastroenterology Romero Rivera MD Neason, Chau Le, MD Orthostatic hypotension (Primary Dx); Iron deficiency anemia due to chronic blood loss; Chronic anticoagulation; Chronic obstructive pulmonary disease, unspecified COPD type (HCC); Coronary artery disease involving saxman coronary artery of saxman heart without angina pectoris; Cardiac pacemaker in situ; Chronic diastolic (congestive) heart failure (HCC) 04/26/2018 [facility] General Internal Medicine - Encounter 04/30/2018 04/26/2018 Orders Only General Internal Medicine Bert Chavez MD Syncope and collapse 04/16/2018 Hospital Radiology Encounter Bert Chavez MD Syncope and collapse 04/16/2018 Hospital Radiology Encounter Martha Dixon 1 minute score 8 (Primary Dx) 04/16/2018 Outside Orders Radiology Bert Chavez MD Syncope and collapse (Primary Dx) 03/31/2018 Outside Orders Central Scheduling Edmundo Michel MD Daniel, Jamuna V., MD General weakness (Primary Dx); Pneumonia, unspecified organism; Coronary artery disease involving saxman coronary artery of saxman heart without angina pectoris; COPD (chronic obstructive pulmonary disease) with chronic bronchitis (HCC) 02/21/2018 Hospital Cardiology - Encounter 02/24/2018 Treva Sanchez MD Massumi, MD Lissette Cross Ron, MD New onset a-fib (HCC) (Primary Dx); Atrial fibrillation with rapid ventricular response (HCC); Hypotension, unspecified hypotension type; History of coronary artery disease; Elevated troponin; History of CHF (congestive heart failure); Acute respiratory failure, unspecified whether with hypoxia or hypercapnia (HCC); COPD with exacerbation (HCC); Respiratory failure requiring intubation (HCC); Acute encephalopathy 01/23/2018 Hospital Cardiology - Encounter 01/29/2018 after 01/27/2018 Family History Medical History Relation Name Comments Hypertension Brother Hypertension Father Cancer Maternal Grandmother Cancer Mother Diabetes Mother Stroke Mother Diabetes Sister Hypertension Sister Relation Name Status Comments Brother Father Maternal Grandmother Mother Sister Social History Date Tobacco Use Types Packs/Day Years Used Former Smoker Smokeless Tobacco: Never Used Alcohol Use Drinks/Week oz/Week Comments No quit Sex Assigned at Date Recorded Not on file Industry Job Start Date Occupation Not on file Not on file Not on file Travel End Travel History Travel Start No recent travel history available. Last Filed Vital Signs Time Taken Vital Sign Reading 12/29/2018 11:35 AM CDT Blood Pressure 124/58 12/29/2018 11:44 AM CDT Pulse 65 12/29/2018 11:35 AM CDT Temperature 35.7 C (96.2 F) 12/29/2018 11:44 AM CDT Respiratory Rate 20 12/29/2018 11:35 AM CDT Oxygen Saturation 93% 12/18/2018 9:16 PM CDT Inhaled Oxygen 21% Concentration 12/28/2018 5:51 AM CDT Weight 66.2 kg (146 lb) 12/12/2018 2:04 PM CDT Height 182.9 cm (6') 12/28/2018 5:51 AM CDT Body Mass Index 19.8 Plan of Treatment Not on file Implants Device Identifier Shelf Expiration Date Model / Serial / Lot Implanted Type 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 er 06/28/2018 [id number] / / [id number] Device Clsr Angio-Seal Vip 6fr Cardiovasc Right: Groin ST [employer] [id number] - [id number] ular MED:CARDIA Implanted: Qty: 1 on 10/08/2017 by Bert Arredondo MD [id number] 03/21/2020 [id number] / / [id number] St[employer] Mr [id number] IMPLANTS TRIANGLE [id number] - [id number] SCI:INTERV Implanted: Qty: 1 on 12/23/2018 by CARDIOLOGY Eloy Howard MD Procedures Comments Procedure Name Priority Date/Time Associated Diagnosis CBC W/PLT COUNT & AUTO Routine 01/07/2019 Disease of artery (HCC) DIFFERENTIAL 11:27 AM CDT COMPREHENSIVE METABOLIC Routine 01/07/2019 Disease of artery (HCC) PANEL 11:27 AM CDT CBC W/PLT COUNT & AUTO Routine 01/07/2019 Disease of artery (HCC) DIFFERENTIAL 11:27 AM CDT VASCULAR DIAGRAM -SCAN 12/31/2018 12:14 PM CDT ARRYTHMIA IMPLANT REPORT 12/31/2018 - SCAN 10:42 AM CDT VASCULAR DIAGRAM -SCAN 12/31/2018 10:42 AM CDT CARDIAC CATH REPORT - 12/31/2018 SCAN 10:41 AM CDT CARDIAC CATH REPORT - 12/31/2018 SCAN 10:41 AM CDT REPORT OF PROCEDURE - 12/31/2018 ENDOSCOPY SCAN 10:41 AM CDT RHYTHM STRIP - SCAN 12/31/2018 10:41 AM CDT PSA Routine 12/29/2018 6:20 AM CDT MAGNESIUM Routine 12/29/2018 6:20 AM CDT CBC (HEMOGRAM ONLY) Routine 12/29/2018 6:20 AM CDT BASIC METABOLIC PANEL (7) Routine 12/29/2018 6:20 AM CDT US RENAL COMPLETE Routine 12/28/2018 4:27 PM CDT MAGNESIUM Routine 12/28/2018 9:59 AM CDT CBC (HEMOGRAM ONLY) Routine 12/28/2018 9:59 AM CDT BASIC METABOLIC PANEL (7) Routine 12/28/2018 9:59 AM CDT MAGNESIUM Routine 12/27/2018 4:31 AM CDT CBC (HEMOGRAM ONLY) Routine 12/27/2018 4:31 AM CDT BASIC METABOLIC PANEL (7) Routine 12/27/2018 4:31 AM CDT MAGNESIUM Routine 12/26/2018 4:47 AM CDT CBC (HEMOGRAM ONLY) Routine 12/26/2018 4:47 AM CDT BASIC METABOLIC PANEL (7) Routine 12/26/2018 4:47 AM CDT CREATININE, RANDOM URINE Routine 12/25/2018 8:13 PM CDT SODIUM, RANDOM URINE Routine 12/25/2018 8:13 PM CDT B-TYPE NATRIURETIC FACTOR Routine 12/25/2018 (BNP) 4:02 AM CDT MAGNESIUM Routine 12/25/2018 4:02 AM CDT CBC (HEMOGRAM ONLY) Routine 12/25/2018 4:02 AM CDT BASIC METABOLIC PANEL (7) Routine 12/25/2018 4:02 AM CDT POCT-GLUCOSE METER Routine 12/24/2018 5:55 PM CDT XR CHEST 1 VIEW DEMARCO 12/24/2018 PORTABLE/BEDSIDE 12:56 PM CDT MAGNESIUM Routine 12/24/2018 3:38 AM CDT CBC (HEMOGRAM ONLY) Routine 12/24/2018 3:38 AM CDT BASIC METABOLIC PANEL (7) Routine 12/24/2018 3:38 AM CDT POCT-ACT Routine 12/23/2018 9:31 PM CDT URINALYSIS W/ MICROSCOPIC Routine 12/23/2018 9:21 PM CDT URINE CULTURE Routine 12/23/2018 9:21 PM CDT POCT-ACT Routine 12/23/2018 8:44 PM CDT POCT-ACT Routine 12/23/2018 7:38 PM CDT POCT-ACT Routine 12/23/2018 5:11 PM CDT POCT-ACT Routine 12/23/2018 4:47 PM CDT POCT-ACT Routine 12/23/2018 3:59 PM CDT POCT-ACT Routine 12/23/2018 3:41 PM CDT PCI 12/23/2018 Congestive heart failure, 2:18 PM CDT unspecified HF chronicity, unspecified heart failure type (HCC) Case Notes [id number]/ [id number]. PT/APTT Routine 12/23/2018 5:17 AM CDT MAGNESIUM Routine 12/23/2018 5:17 AM CDT CBC (HEMOGRAM ONLY) Routine 12/23/2018 5:17 AM CDT BASIC METABOLIC PANEL (7) Routine 12/23/2018 5:17 AM CDT MAGNESIUM Routine 12/22/2018 4:10 AM CDT CBC (HEMOGRAM ONLY) Routine 12/22/2018 4:10 AM CDT BASIC METABOLIC PANEL (7) Routine 12/22/2018 4:10 AM CDT MAGNESIUM Routine 12/21/2018 4:14 AM CDT CBC (HEMOGRAM ONLY) Routine 12/21/2018 4:14 AM CDT BASIC METABOLIC PANEL (7) Routine 12/21/2018 4:14 AM CDT CBC (HEMOGRAM ONLY) Routine 12/20/2018 4:26 AM CDT BASIC METABOLIC PANEL (7) Routine 12/20/2018 4:26 AM CDT CBC (HEMOGRAM ONLY) Routine 12/19/2018 4:53 AM CDT BASIC METABOLIC PANEL (7) Routine 12/19/2018 4:53 AM CDT POCT-ACT Routine 12/18/2018 3:39 PM CDT POCT-ACT Routine 12/18/2018 3:29 PM CDT L CATH & PCI 12/18/2018 Congestive heart failure, 3:00 PM CDT unspecified HF chronicity, unspecified heart failure type (HCC) CBC (HEMOGRAM ONLY) Routine 12/18/2018 5:45 AM CDT BASIC METABOLIC PANEL (7) Routine 12/18/2018 5:45 AM CDT CBC (HEMOGRAM ONLY) Routine 12/17/2018 6:02 AM CDT BASIC METABOLIC PANEL (7) Routine 12/17/2018 6:02 AM CDT ECHOCARDIOGRAM REPORT - 12/16/2018 SCAN 9:24 PM CDT 2D ECHO W/ DOPPLER Routine 12/16/2018 (CW/PW/COLOR) 12:50 PM CDT CBC (HEMOGRAM ONLY) Routine 12/16/2018 4:02 AM CDT BASIC METABOLIC PANEL (7) Routine 12/16/2018 4:02 AM CDT RHYTHM STRIP - SCAN 12/15/2018 10:22 AM CDT B-TYPE NATRIURETIC FACTOR Routine 12/15/2018 (BNP) 5:15 AM CDT URIC ACID Routine 12/15/2018 5:15 AM CDT CBC (HEMOGRAM ONLY) Routine 12/15/2018 5:15 AM CDT BASIC METABOLIC PANEL (7) Routine 12/15/2018 5:15 AM CDT URINALYSIS W/ MICROSCOPIC Routine 12/14/2018 4:13 PM CDT SODIUM, RANDOM URINE Routine 12/14/2018 4:[address] BRAIN WITHOUT IV STAT 12/14/2018 CONTRAST 10:30 AM CDT CBC (HEMOGRAM ONLY) Routine 12/14/2018 4:33 AM CDT BASIC METABOLIC PANEL (7) Routine 12/14/2018 4:33 AM CDT BLOOD CULTURE Routine 12/13/2018 3:29 PM CDT URINE CULTURE Routine 12/13/2018 12:03 PM CDT URINALYSIS W/ MICROSCOPIC Routine 12/13/2018 12:02 PM CDT BLOOD CULTURE Routine 12/13/2018 11:40 AM CDT TROPONIN I Routine 12/13/2018 4:40 AM CDT CBC (HEMOGRAM ONLY) Routine 12/13/2018 4:40 AM CDT BASIC METABOLIC PANEL (7) Routine 12/13/2018 4:40 AM CDT B-TYPE NATRIURETIC FACTOR Routine 12/13/2018 (BNP) 4:40 AM CDT TROPONIN I Routine 12/12/2018 11:32 PM CDT ECG 12-LEAD STAT 12/12/2018 9:23 PM CDT ACETAMINOPHEN LEVEL STAT 12/12/2018 4:38 PM CDT ED ECG INTERPRETATION Routine 12/12/2018 3:04 PM CDT XR CHEST 1 VIEW STAT 12/12/2018 PORTABLE/BEDSIDE 2:55 PM CDT CBC W/PLT COUNT & AUTO STAT 12/12/2018 DIFFERENTIAL 2:36 PM CDT MAGNESIUM STAT 12/12/2018 2:36 PM CDT HEPATIC FUNCTION PANEL STAT 12/12/2018 2:36 PM CDT BASIC METABOLIC PANEL (7) STAT 12/12/2018 2:36 PM CDT CBC W/PLT COUNT & AUTO STAT 12/12/2018 DIFFERENTIAL 2:36 PM CDT POCT-LACTIC ACID, VENOUS Routine 12/12/2018 2:35 PM CDT ECG 12-LEAD Routine 12/12/2018 2:33 PM CDT Procedure Note - Interface, External Ris In - 12/12/2018 8:30 PM CDT Ventricula r Rate 68 BPM Atrial Rate 68 BPM P-R Interval 192 ms QRS Duration 102 ms Q-T Interval 488 ms QTC Calculatio n(Bazett) 518 ms P [place] 66 degrees R [place] -60 degrees T [place] -83 degrees Normal sinus rhythm Possible Left atrial enlargemen t Left axis deviation Left ventricula r hypertroph y T wave abnormalit y, consider inferior ischemia Prolonged QT Abnormal ECG When compared with ECG of 8 18:26, QRS axis Shifted left T wave inversion now evident in Inferior leads T wave inversion now evident in Anterior leads QT has lengthened ECG 12-LEAD STAT 12/12/2018 2:33 PM CDT POCT-GLUCOSE METER Routine 12/12/2018 2:15 PM CDT RHYTHM STRIP - SCAN 10/19/2018 5:09 PM CDT RHYTHM STRIP - SCAN 10/07/2018 10:24 AM CDT TYPE AND SCREEN, Routine 07/06/2018 AUTOMATED 3:22 PM DOCTOR OSTEOPATHIC DIRECT AHG (VALERY)/DIRECT Routine 07/06/2018 JANA 3:22 PM DOCTOR OSTEOPATHIC TRANSFUSION SERVICE 05/05/2018 REPORT - SCAN 6:04 PM DOCTOR OSTEOPATHIC CBC W/PLT COUNT & AUTO Routine 05/04/2018 Iron deficiency anemia DIFFERENTIAL 1:28 PM DOCTOR OSTEOPATHIC secondary to inadequate dietary iron intake DIRECT AHG (VALERY)/DIRECT Routine 05/04/2018 Iron deficiency anemia JANA 1:28 PM DOCTOR OSTEOPATHIC secondary to inadequate dietary iron intake TYPE AND SCREEN, Routine 05/04/2018 Iron deficiency anemia AUTOMATED 1:28 PM DOCTOR OSTEOPATHIC secondary to inadequate dietary iron intake CBC W/PLT COUNT & AUTO Routine 05/04/2018 Iron deficiency anemia DIFFERENTIAL 1:28 PM DOCTOR OSTEOPATHIC secondary to inadequate dietary iron intake COMPREHENSIVE METABOLIC Routine 05/04/2018 Iron deficiency anemia PANEL 1:28 PM DOCTOR OSTEOPATHIC secondary to inadequate dietary iron intake PROTHROMBIN TIME/INR Routine 05/04/2018 Iron deficiency anemia 1:28 PM DOCTOR OSTEOPATHIC secondary to inadequate dietary iron intake APTT Routine 05/04/2018 Iron deficiency anemia 1:28 PM DOCTOR OSTEOPATHIC secondary to inadequate dietary iron intake FIBRINOGEN Routine 05/04/2018 Iron deficiency anemia 1:28 PM DOCTOR OSTEOPATHIC secondary to inadequate dietary iron intake BILIRUBIN, TOTAL AND Routine 05/04/2018 Iron deficiency anemia DIRECT 1:28 PM DOCTOR OSTEOPATHIC secondary to inadequate dietary iron intake CREATINE KINASE (CK) Routine 05/04/2018 Iron deficiency anemia 1:28 PM DOCTOR OSTEOPATHIC secondary to inadequate dietary iron intake LACTATE DEHYDROGENASE Routine 05/04/2018 Iron deficiency anemia (LDH) 1:28 PM DOCTOR OSTEOPATHIC secondary to inadequate dietary iron intake RHYTHM STRIP - SCAN 05/04/2018 10:21 AM DOCTOR OSTEOPATHIC CBC (HEMOGRAM ONLY) Routine 04/30/2018 6:01 AM CDT MAGNESIUM Routine 04/30/2018 6:01 AM CDT BASIC METABOLIC PANEL (7) Routine 04/30/2018 6:01 AM CDT TRANSFUSION SERVICE 04/29/2018 REPORT - SCAN 6:03 PM CDT LACTIC ACID, VENOUS Routine 04/29/2018 5:46 AM CDT CBC (HEMOGRAM ONLY) Routine 04/29/2018 5:41 AM CDT MAGNESIUM Routine 04/29/2018 5:41 AM CDT BASIC METABOLIC PANEL (7) Routine 04/29/2018 5:41 AM CDT HEMOGLOBIN Routine 04/29/2018 5:41 AM CDT RAPID DRUG SCREEN, URINE Routine 04/29/2018 4:09 AM CDT PREPARE LEUKO-REDUCED RBC Routine 04/28/2018 11:54 PM CDT POCT-GLUCOSE METER Routine 04/28/2018 7:53 PM CDT REPORT OF PROCEDURE - 04/28/2018 ENDOSCOPY URL 6:57 PM CDT TRANSFUSION SERVICE 04/28/2018 REPORT - SCAN 6:03 PM CDT UPPER ENDOSCOPY 04/28/2018 Anemia, unspecified type 4:00 PM CDT CBC (HEMOGRAM ONLY) Routine 04/28/2018 5:36 AM CDT MAGNESIUM Routine 04/28/2018 5:36 AM CDT BASIC METABOLIC PANEL (7) Routine 04/28/2018 5:36 AM CDT TRANSFUSE LEUKO-REDUCED Routine 04/28/2018 RED BLOOD CELLS 4:39 AM CDT TRANSFUSION SERVICE 04/27/2018 REPORT - SCAN 6:11 PM CDT TRANSFUSE LEUKO-REDUCED Routine 04/27/2018 RED BLOOD CELLS 6:02 PM CDT CBC W/PLT COUNT & AUTO Routine 04/27/2018 DIFFERENTIAL 9:59 AM CDT DIRECT AHG (VALERY)/DIRECT Routine 04/27/2018 JANA 9:59 AM CDT CBC W/PLT COUNT & AUTO Routine 04/27/2018 DIFFERENTIAL 9:59 AM CDT LACTATE DEHYDROGENASE Routine 04/27/2018 (LDH) 9:59 AM CDT CREATINE KINASE (CK) Routine 04/27/2018 9:59 AM CDT FIBRINOGEN Routine 04/27/2018 9:59 AM CDT BILIRUBIN, TOTAL AND Routine 04/27/2018 DIRECT 9:59 AM CDT APTT Routine 04/27/2018 9:59 AM CDT PROTHROMBIN TIME/INR Routine 04/27/2018 9:59 AM CDT COMPREHENSIVE METABOLIC Routine 04/27/2018 PANEL 9:59 AM CDT HEMOGLOBIN A1C Routine 04/27/2018 9:59 AM CDT URINALYSIS W/ REFLEX STAT 04/27/2018 URINE CULTURE 6:17 AM CDT CBC (HEMOGRAM ONLY) Routine 04/27/2018 6:16 AM CDT MAGNESIUM Routine 04/27/2018 6:16 AM CDT BASIC METABOLIC PANEL (7) Routine 04/27/2018 6:16 AM CDT TYPE AND SCREEN, STAT 04/26/2018 AUTOMATED 7:57 PM CDT POCT OCCULT BLOOD STAT 04/26/2018 STOOL(GUIAC) 6:40 PM CDT ECG 12-LEAD Routine 04/26/2018 6:26 PM CDT Procedure Note - Interface, External Ris In - 04/26/2018 11:09 PM CDT Ventricula r Rate 62 BPM Atrial Rate 62 BPM P-R Interval 178 ms QRS Duration 88 ms Q-T Interval 462 ms QTC Calculatio n(Bazett) 468 ms P [place] 74 degrees R [place] 68 degrees T [place] 80 degrees Normal sinus rhythm Normal ECG When compared with ECG of 12:14, ST no longer depressed in Inferior leads ST no longer depressed in Anterolate ral leads T wave inversion no longer evident in Inferior leads T wave inversion no longer evident in Anterolate ral leads ECG 12-LEAD STAT 04/26/2018 6:26 PM CDT XR CHEST 1 VIEW STAT 04/26/2018 PORTABLE/BEDSIDE 6:05 PM CDT CBC W/PLT COUNT & AUTO STAT 04/26/2018 DIFFERENTIAL 5:36 PM CDT HEPATIC FUNCTION PANEL STAT 04/26/2018 5:36 PM CDT CREATINE KINASE (CK), STAT 04/26/2018 TOTAL AND MB 5:36 PM CDT B-TYPE NATRIURETIC FACTOR STAT 04/26/2018 (BNP) 5:36 PM CDT PT/APTT STAT 04/26/2018 5:36 PM CDT CBC W/PLT COUNT & AUTO STAT 04/26/2018 DIFFERENTIAL 5:36 PM CDT TROPONIN I STAT 04/26/2018 5:36 PM CDT MAGNESIUM STAT 04/26/2018 5:36 PM CDT BASIC METABOLIC PANEL (7) STAT 04/26/2018 5:36 PM CDT ED ECG INTERPRETATION Routine 04/26/2018 5:[address]/CTA CAROTID Routine 04/16/2018 Syncope and collapse 1:[address]/CTA BRAIN Routine 04/16/2018 Syncope and collapse 1:26 PM CDT POCT-CREATININE Routine 04/16/2018 1:16 PM CDT RHYTHM STRIP - SCAN 02/25/2018 12:51 PM CDT CBC (HEMOGRAM ONLY) Routine 02/24/2018 4:34 AM CDT BASIC METABOLIC PANEL (7) Routine 02/24/2018 4:34 AM CDT VANCOMYCIN LEVEL, TROUGH Timed 02/23/2018 8:47 PM CDT CBC (HEMOGRAM ONLY) Routine 02/23/2018 4:48 AM CDT BASIC METABOLIC PANEL (7) Routine 02/23/2018 4:48 AM CDT TROPONIN I Routine 02/22/2018 5:34 AM CDT CBC (HEMOGRAM ONLY) Routine 02/22/2018 5:34 AM CDT BASIC METABOLIC PANEL (7) Routine 02/22/2018 5:34 AM CDT TROPONIN I Routine 02/22/2018 12:05 AM CDT URINALYSIS W/ MICROSCOPIC STAT 02/21/2018 2:[address] BRAIN WITHOUT IV STAT 02/21/2018 CONTRAST 1:37 PM CDT XR CHEST 1 VIEW STAT 02/21/2018 PORTABLE/BEDSIDE 12:25 PM CDT ECG 12-LEAD Routine 02/21/2018 12:14 PM CDT Procedure Note - Interface, External Ris In - 02/21/2018 3:51 PM CDT Ventricula r Rate 80 BPM Atrial Rate 80 BPM P-R Interval 168 ms QRS Duration 94 ms Q-T Interval 374 ms QTC Calculatio n(Bazett) 431 ms P [place] 59 degrees R [place] 31 degrees [place] 255 degrees Normal sinus rhythm Left ventricula r hypertroph y with repolariza tion abnormalit y Abnormal ECG When compared with ECG of 8 05:32, Sinus rhythm has replaced Electronic ventricula r pacemaker ECG 12-LEAD STAT 02/21/2018 12:14 PM CDT BLOOD CULTURE STAT 02/21/2018 12:12 PM CDT POCT-LACTIC ACID, VENOUS Routine 02/21/2018 12:11 PM CDT CBC W/PLT COUNT & AUTO STAT 02/21/2018 DIFFERENTIAL 12:08 PM CDT CREATINE KINASE (CK), STAT 02/21/2018 TOTAL AND MB 12:08 PM CDT TROPONIN I STAT 02/21/2018 12:08 PM CDT BASIC METABOLIC PANEL (7) STAT 02/21/2018 12:08 PM CDT CBC W/PLT COUNT & AUTO STAT 02/21/2018 DIFFERENTIAL 12:08 PM CDT BLOOD CULTURE STAT 02/21/2018 12:08 PM CDT ARRYTHMIA IMPLANT REPORT 02/16/2018 - SCAN 3:11 PM CDT RHYTHM STRIP - SCAN 02/01/2018 2:50 PM CDT POCT-GLUCOSE METER Routine 01/29/2018 10:52 AM CDT POCT-GLUCOSE METER Routine 01/29/2018 7:22 AM CDT CBC W/PLT COUNT & AUTO Routine 01/29/2018 DIFFERENTIAL 5:41 AM CDT BASIC METABOLIC PANEL (7) Routine 01/29/2018 5:41 AM CDT CBC W/PLT COUNT & AUTO Routine 01/29/2018 DIFFERENTIAL 5:41 AM CDT MAGNESIUM Routine 01/29/2018 5:41 AM CDT ECG 12-LEAD Routine 01/29/2018 5:32 AM CDT Procedure Note - Interface, External Ris In - 01/29/2018 6:08 AM CDT Ventricula r Rate 67 BPM Atrial Rate 67 BPM P-R Interval 162 ms QRS Duration 94 ms Q-T Interval 452 ms QTC Calculatio n(Bazett) 477 ms P [place] 69 degrees R [place] -12 degrees [place] 34 degrees Suspect unspecifie d pacemaker failure Sinus rhythm with occasional ventricula r-paced complexes Possible Left atrial enlargemen t Left ventricula r hypertroph y with repolariza tion abnormalit y Abnormal ECG When compared with ECG of 04:04, Premature ventricula r complexes are no longer Present ECG 12-LEAD Routine 01/29/2018 5:32 AM CDT POCT-GLUCOSE METER Routine 01/28/2018 9:13 PM CDT POCT-GLUCOSE METER Routine 01/28/2018 5:05 PM CDT BASIC METABOLIC PANEL (7) Routine 01/28/2018 3:29 PM CDT POCT-GLUCOSE METER Routine 01/28/2018 11:48 AM CDT XR CHEST 1 VIEW Routine 01/28/2018 PORTABLE/BEDSIDE 10:11 AM CDT POCT-GLUCOSE METER Routine 01/28/2018 8:01 AM CDT CBC W/PLT COUNT & AUTO Routine 01/28/2018 DIFFERENTIAL 4:10 AM CDT BASIC METABOLIC PANEL (7) Routine 01/28/2018 4:10 AM CDT CBC W/PLT COUNT & AUTO Routine 01/28/2018 DIFFERENTIAL 4:10 AM CDT MAGNESIUM Routine 01/28/2018 4:10 AM CDT ECG 12-LEAD Routine 01/28/2018 4:04 AM CDT POCT-GLUCOSE METER Routine 01/27/2018 9:14 PM CDT BASIC METABOLIC PANEL (7) Routine 01/27/2018 6:09 PM CDT POCT-GLUCOSE METER Routine 01/27/2018 5:21 PM CDT POCT-GLUCOSE METER Routine 01/27/2018 11:51 AM CDT ECG 12-LEAD Routine 01/27/2018 9:01 AM CDT POCT-GLUCOSE METER Routine 01/27/2018 7:23 AM CDT POCT-GLUCOSE METER Routine 01/27/2018 6:36 AM CDT (CELLAVISION MANUAL DIFF) Routine 01/27/2018 5:02 AM CDT CBC W/PLT COUNT & AUTO Routine 01/27/2018 DIFFERENTIAL 5:02 AM CDT BASIC METABOLIC PANEL (7) Routine 01/27/2018 5:02 AM CDT CBC W/PLT COUNT & AUTO Routine 01/27/2018 DIFFERENTIAL 5:02 AM CDT MAGNESIUM Routine 01/27/2018 5:02 AM CDT after 01/27/2018 Results * CBC with platelet count + automated diff (01/07/2019 11:27 AM CDT) Only the most recent of 9 results within the time period is included. WBC 11.1 (H) 3.5 - 10.5 K/L [facility] RBC 5.56 4.63 - 6.08 M/L [facility] Hemoglobin 13.7 13.7 - 17.5 GM/DL [facility] Hematocrit 45.4 40.1 - 51.0 % [facility] MCV 81.7 79.0 - 92.2 fL [facility] MCH 24.6 (L) 25.7 - 32.2 pg [facility] MCHC 30.2 (L) 32.3 - 36.5 GM/DL [facility] RDW 18.2 (H) 11.6 - 14.4 % [facility] Platelets 300 150 - 450 K/CU MM [facility] MPV 10.2 9.4 - 12.4 fL [facility] nRBC 0 0 - 0 /100 WBC [facility] % Neutros 72 % [facility] % Lymphs 17 % [facility] % Monos 7 % [facility] % Eos 3 % [facility] % Baso 1 % [facility] # Neutros 7.97 (H) 1.78 - 5.38 K/L [facility] # Lymphs 1.93 1.32 - 3.57 K/L [facility] # Monos 0.75 0.30 - 0.82 K/L [facility] # Eos 0.32 0.04 - 0.54 K/L [facility] # Baso 0.05 0.01 - 0.08 K/L [facility] Immature 1 0 - 1 % [facility] Granulocytes-[facility] Specimen Blood Performing Organization Address City/State/Zipcode Phone Number [facility] [address] [place] [address] [facility] * Comprehensive metabolic panel (01/07/2019 11:27 AM CDT) Only the most recent of 3 results within the time period is included. Protein, Total 8.1 6.0 - 8.3 gm/dL [facility] Albumin 4.4 3.5 - 5.0 g/dL [facility] Alkaline Phosphatase 106 40 - 150 U/L [facility] Total Bilirubin 0.4 0.2 - 1.2 mg/dL [facility] Sodium 136 136 - 145 meq/L [facility] Potassium 4.9 3.5 - 5.1 meq/L [facility] Chloride 97 (L) 98 - 107 meq/L [facility] CO2 30 (H) 22 - 29 meq/L [facility] BUN 22 (H) 7 - 21 mg/dL [facility] Creatinine 1.26 (H) 0.57 - 1.25 mg/dL [facility] Glucose 123 (H) 70 - 105 mg/dL [facility] Calcium 10.3 (H) 8.4 - 10.2 mg/dL [facility] AST 20 5 - 34 U/L [facility] ALT 22 6 - 55 U/L [facility] EGFR 56Comment: ESTIMATED GFR IS mL/min/1.73 sq m [facility] NOT ACCURATE CREATININE [facility] CLEARANCE IN PREDICTING GLOMERULAR FILTRATION RATE. ESTIMATED GFR IS NOT APPLICABLE FOR DIALYSIS PATIENTS. Specimen Blood Performing Organization Address City/State/Zipcode Phone Number [facility] [address] [place] [address] MEDICAL [facility]ENTER * VASCULAR DIAGRAM -SCAN (12/31/2018 12:14 PM CDT) Only the most recent of 2 results within the time period is included. Narrative Performed At * ARRYTHMIA IMPLANT REPORT - SCAN (12/31/2018 10:42 AM CDT) Only the most recent of 2 results within the time period is included. Narrative Performed At * CARDIAC CATH REPORT - SCAN (12/31/2018 10:41 AM CDT) Narrative Performed At * CARDIAC CATH REPORT - SCAN (12/31/2018 10:41 AM CDT) Narrative Performed At * EKG-SCANNED (12/31/2018 10:41 AM CDT) Narrative Performed At * RHYTHM STRIP - SCAN (12/31/2018 10:41 AM CDT) Only the most recent of 7 results within the time period is included. Narrative Performed At * CBC (Hemogram only) (12/29/2018 6:20 AM CDT) Only the most recent of 24 results within the time period is included. WBC 11.2 (H) 3.5 - 10.5 K/L [facility] RBC 5.01 4.63 - 6.08 M/L [facility] Hemoglobin 12.2 (L) 13.7 - 17.5 GM/DL [facility] Hematocrit 42.0 40.1 - 51.0 % [facility] MCV 83.8 79.0 - 92.2 fL [facility] MCH 24.4 (L) 25.7 - 32.2 pg [facility] MCHC 29.0 (L) 32.3 - 36.5 GM/DL [facility] RDW 16.4 (H) 11.6 - 14.4 % [facility] Platelets 347 150 - 450 K/CU MM [facility] MPV 10.7 9.4 - 12.4 fL [facility] nRBC 0 0 - 0 /100 WBC [facility] Specimen Blood Performing Organization Address City/State/Zipcode Phone Number [facility] [address] [place] [address] MEDICAL [facility]ENTER * PSA (12/29/2018 6:20 AM CDT) PSA 0.7 0.0 - 4.0 ng/mL [facility] Specimen Blood Performing Organization Address City/State/Zipcode Phone Number [facility] [address] [place] [address] [phone] [place] [address] * Magnesium (12/29/2018 6:20 AM CDT) Only the most recent of 18 results within the time period is included. Magnesium 2.1 1.6 - 2.6 mg/dL [facility] Specimen Blood Performing Organization Address City/[facility] Cent[facility]ode Phone Number [facility] [address] [place] [address] [facility] * Basic Metabolic Panel (12/29/2018 6:20 AM CDT) Only the most recent of 32 results within the time period is included. Sodium 142 136 - 145 meq/L [facility] Potassium 4.2 3.5 - 5.1 meq/L [facility] Chloride 107 98 - 107 meq/L [facility] CO2 28 22 - 29 meq/L [facility] BUN 34 (H) 7 - 21 mg/dL [facility] Creatinine 1.01 0.57 - 1.25 mg/dL [facility] Glucose 113 (H) 70 - 105 mg/dL [facility] Calcium 9.8 8.4 - 10.2 mg/dL [facility] EGFR 72Comment: ESTIMATED GFR IS mL/min/1.73 sq m [facility] NOT ACCURATE CREATININE [facility] CLEARANCE IN PREDICTING GLOMERULAR FILTRATION RATE. ESTIMATED GFR IS NOT APPLICABLE FOR DIALYSIS PATIENTS. Specimen Blood Performing Organization Address City/[facility]/Zipcode Phone Number [place] [phone] [place] [address] [facility] * US renal complete (12/28/2018 4:27 PM CDT) Specimen Narrative Performed At FINAL REPORT [facility] Renal ultrasound dated 12/28/2018 Comment:Real-time transabdominal renal ultrasound was performed. Right kidney measures 10.4 x 4.8 x 5.8 cm.Left kidney measures 10.6 x 5.2 x 5.5 cm.Right renal cortex measures 1.3 cm.Left renal cortex measures 1.3 cm. Echogenicity of both renal parenchyma is normal. A 2.4 x 3.6 cm parapelvic cyst is seen on the left. The urinary bladder is contracted. Doppler ultrasound demonstrates patent main renal artery and vein bilaterally. Impression:Left parapelvic renal cyst. Signed: Ronnie Jenkins MD Report Verified Date/Time:12/28/2018 16:55:31 Reading Location: [address] Radiology Reading Room Procedure Note Interface, External Ris In - 12/28/2018 4:57 PM CDT FINAL REPORT Renal ultrasound dated 12/28/2018 Comment: Real-time transabdominal renal ultrasound was performed. Right kidney measures 10.4 x 4.8 x 5.8 cm. Left kidney measures 10.6 x 5.2 x 5.5 cm. Right renal cortex measures 1.3 cm. Left renal cortex measures 1.3 cm. Echogenicity of both renal parenchyma is normal. A 2.4 x 3.6 cm parapelvic cyst is seen on the left. The urinary bladder is contracted. Doppler ultrasound demonstrates patent main renal artery and vein bilaterally. Impression: Left parapelvic renal cyst. Signed: Ronnie Jenkins MD Report Verified Date/Time: 12/28/2018 16:55:31 Reading Location: [address] Radiology Reading Room Performing Organization Address City/State/Zipcode Phone Number [facility] * Sodium, random urine (12/25/2018 8:13 PM CDT) Only the most recent of 2 results within the time period is included. Sodium Urine 102 meq/L [facility] Specimen Urine Narrative Performed At Reference Range: No Normals [facility] Performing Organization Address City/[facility]/[place] [address] [phone] * Creatinine, random urine (12/25/2018 8:13 PM CDT) Creatinine, Ur 77.2 mg/dL [facility] Specimen Urine Narrative Performed At Reference Range: No Normals [facility] Performing Organization Address [facility] Centercoct Phone Number [address] * B-type Natriuretic Factor (BNP) (12/25/2018 4:02 AM CDT) Only the most recent of 4 results within the time period is included. BNP 1,490 (H) 0 - 100 pg/mL [facility] Specimen Blood Performing Organization Address [facility] Centercode Phone Number [address] * POC-Glucose meter (12/24/2018 5:55 PM CDT) Only the most recent of 14 results within the time period is included. POC-Glucose Meter 106Comment: TESTED AT [facility] 70 - 110 mg/dL [address] Specimen Blood Performing Organization Address City/[facility] Centercoct Phone Number [address] * XR chest 1 view portable / bedside (12/24/2018 12:56 PM CDT) Only the most recent of 5 results within the time period is included. Specimen Narrative Performed At FINAL REPORT [facility] TECHNIQUE: Frontal chest radiographs dated 12/24/2018. CLINICAL HISTORY: Shortness of breath COMPARISON STUDY: Chest radiograph dated 12/12/2018 IMPRESSION: Left-sided pacemaker is unchanged in position. There is improved aeration of the lungs. Small left pleural effusion with associated atelectasis seen. No pneumothorax. Cardiomediastinal silhouette is stable in size. No pulmonary edema. Bones are osteopenic. Signed: Nickie Paulino MD Report Verified Date/Time:12/24/2018 13:14:52 Reading Location: [facility] Radiology Reading Room Procedure Note Interface, External Ris In - 12/24/2018 1:17 PM CDT FINAL REPORT TECHNIQUE: Frontal chest radiographs dated 12/24/2018. CLINICAL HISTORY: Shortness of breath COMPARISON STUDY: Chest radiograph dated 12/12/2018 IMPRESSION: Left-sided pacemaker is unchanged in position. There is improved aeration of the lungs. Small left pleural effusion with associated atelectasis seen. No pneumothorax. Cardiomediastinal silhouette is stable in size. No pulmonary edema. Bones are osteopenic. Signed: Nickie Paulino MD Report Verified Date/Time: 12/24/2018 13:14:52 Reading Location: [facility] Radiology Reading Room Performing Organization Address City/State/Zipcode Phone Number [facility] * POC ACTIVATED CLOTTING TIME (12/23/2018 9:31 PM CDT) Only the most recent of 9 results within the time period is included. Activated Clotting Time 136Comment: TESTED AT [facility] sec [address] Specimen Blood Performing Organization Address City/[facility]/[place] [address] MEDICAL CENTER * Urinalysis w/Microscopic (12/23/2018 9:21 PM CDT) Only the most recent of 4 results within the time period is included. Color, UA Yellow [facility] Clarity, UA Clear [facility] Specific [place], UA 1.018 1.001 - 1.035 [facility] pH, UA 7.5 5.0 - 8.0 [facility] Protein, UA Negative Negative [facility] Glucose, UA Negative Negative [facility] Ketones, UA Negative Negative [facility] Bilirubin, UA Negative Negative [facility] Blood, UA Negative Negative [facility] Nitrite, UA Negative Negative [facility] Leukocytes, UA Negative Negative [facility] Urobilinogen, UA 2.0 (H) 0.2 - 1.0 mg/dL [facility] RBC, UA <1 /HPF [facility] WBC, UA <1 /HPF [facility] Specimen Source Urine, Straight Catheter [facility] Specimen Urine - Urine, Straight Catheter Performing Organization Address [facility] [place] [address] [phone] * Urine culture (12/23/2018 9:21 PM CDT) Only the most recent of 2 results within the time period is included. Result No growth [facility] Specimen Urine - Urine, Straight Catheter Performing Organization Address City/[facility] Centerco[facility] Phone Number [address] * PT/aPTT (12/23/2018 5:17 AM CDT) Only the most recent of 2 results within the time period is included. Protime 16.0 (H) 11.9 - 14.2 seconds [facility] INR 1.4 <=5.9 [facility] PTT 37.6 (H) 22.5 - 36.0 seconds [facility] Specimen Blood Narrative Performed At Effective 11/24/2018: PT Reference Range Change [facility] New: 11.9-14.2Previous: 11.7-14.7 [facility] RECOMMENDED COUMADIN/WARFARIN INR THERAPY RANGES STANDARD DOSE: 2.0-3.0Includes: PROPHYLAXIS for venous thrombosis, systemic embolization; TREATMENT for venous thrombosis and/or pulmonary embolus. HIGH RISK: Target INR is 2.5-3.5 for patients wiht mechanical heart valves. Performing Organization Address City/State/Zipcode Phone Number [facility] [address] [place] [address] MEDICAL CENTER * ECHOCARDIOGRAM REPORT - SCAN (12/16/2018 9:24 PM CDT) Narrative Performed At * 2D Echo W/Doppler(CW/PW/Color) (12/16/2018 12:50 PM CDT) Ejection Fraction [facility] ECHO HEARTLAB [facility] Specimen Narrative Performed At Transthoracic Echocardiography Report (TTE) [facility] ECHO HEARTLAB Demographics [facility] Patient NameTAQUERIA ERAZO Date of Study12/16/2018 MERCEDES Gender Male Visit [id number] Race Unknown [id number] Number Date of 1940 [facility]erring[facility] Centerdwight-Humberto Thomson MD Age 78 year(s) SonographerLinus Rodríguez [facility] Business Administration Professor Adela Wood CS Interpreting Brock Dimas MD Physician Procedure Type of Study TTE procedure:2DECHO W DOPPLER(CW/PW/COLOR) (Routine) Indications:Sustained or non sustained Afib, SVT or VT. Clinical History Chronic Systolic Heart Failure COPD Coronary Artery Disease Diabetes GERD CVA Hyperlipidemia Hypertension Ischemic Cardiomyopathy Paroxysmal Atrial Fibrillation PVD Pacemaker 10/08/17 L Cath / Coronary Angio HGB 11.1 HCT 37 % Height: 72 inches Weight: 72.57 kg (160 lbs) BSA: 1.94 m^2 BMI: 21.7 kg/m^2 HR: 65 bpm BP: 107/60 mmHg Summary The left ventricle is chamber size (by vol index) is normal (male - LVED vol - 34-74ml/m2). No evidence of LV hypertrophy. All of the LV segments are severely hypokinetic . LVEF by Abbott's method of disk assessment is severely reduced (20-24%) . Grade 3 diastolic dysfunction (marked elevated LA pressure). RV chamber size is moderately enlarged . Global RV systolic function is moderately reduced . Mild mitral regurgitation. Estimated peak systolic PA pressure is 45-50 mmHg . Previous Study In comparison with the prior exam 01/24/2018 the following changes are noted: left ventricular systolic function has decreased . Signature Findings Technical Quality: Technically adequate exam. Left Ventricle The left ventricle is chamber size (by vol index) is normal (male - LVED vol - 34-74ml/m2). No evidence of LV hypertrophy. All of the LV segments are severely hypokinetic . Global LV systolic function severely reduced . LVEF by Abbott's method of disk assessment is severely reduced (20-24%) . Grade 3 diastolic dysfunction (marked elevated LA pressure). Left AtriumLA size is severely enlarged (>48 ml/m2) . Right VentricleRV chamber size is moderately enlarged . Global RV systolic function is moderately reduced . RV pacing wire is visualized . Right Atrium RA cavity size is severely enlarged . RA pacing wire is visualized . Aortic Valve Mild AoV cusp thickening. A trace of aortic regurgitation. Mitral Valve Mild MV leaflet thickening. Mild mitral regurgitation. Tricuspid ValveTV structure is normal. Mild tricuspid regurgitation. Estimated peak systolic PA pressure is 45-50 mmHg . Pulmonic Valve Mild pulmonary regurgitation. Normal PV structure appears normal by available views. AortaAortic root size (SInus of Valsalva diameter) is normal . PericardiumNo pericardial effusion is visualized. IVC/SVC/PA/PV/PleuralA left pleural effusion is noted. Left pleural effusion appears large in size. The estimated RA pressure by IVC dynamics 16-20mmHg . The inferior vena cava size is mildly increased . The inferior vena cava is partially visualized. Chambers/Structures Left Atrium LA Volume: 94.49 ml LA Area: 27.64 cm^2 LA Vol. Index: 49 ml/m^2 Left Ventricle LVIDd: 5.28 cm LVIDs: 4.08 cm LV Septum Diastolic: 1.13 cm LV PW Diastolic: 1.1 cm LV FS: 22.7 % LVEDV Abbott's:139.14 ml LVESV Abbott's:92.69 mlLVEDVI: 72 ml/m^2 LVEF Abbott's: 23.2 %LVESVI: 48 ml/m^2 LVOT Diameter: 2.28 cm Right Atrium RA Vol. (Sngl Plane): 143.45 ml Right Ventricle RV Diast Dim.: 5.84 cm Aorta Ao Root S of Juju.: 3.35 cm Doppler/Quantitative Measurements Mitral Valve MV Peak E-Wave: 0.79 m/sMV Peak A-Wave: 0.28 m/s E/A Ratio: 2.88 Peak Gradient: 2.51 mmHg Deceleration Time: 161 msec MV Esa. Peak: Aortic Valve Peak Velocity: 1 m/s Mean Velocity: 0.71 m/s Peak Gradient: 3.99 mmHg Mean Gradient: 2.26 mmHg AV Area (continuity): 2.19 cm^2 AV VTI: 18.49 cm AV DVI: 0.54 LVOT Peak Velocity: 0.61 m/s Peak Gradient: 1.49 mmHg Mean Velocity: 0.39 m/s Mean Gradient: 0.71 mmHg LVOT Diameter: 2.28 cmLVOT VTI: 9.91 cm LVOT Area: 4.08 cm^2LVOT SV:40.44 ml LVOT CO: 2.63 l/min LVOT CI: 1.36 l/min/m^2 Tricuspid Valve TR Velocity: 2.58 m/s TR Gradient: 26.67 mmHg Procedure Note Interface, External Ris In - 12/16/2018 4:52 PM CDT Transthoracic Echocardiography Report (TTE) Demographics Patient Name TAQUERIA ERAZO Date of Study 12/16/2018 MERCEDES Gender Male Visit Number [id number] Race Unknown Room Number 1454 Number Date of 1940 Referring Scott Thomson MD Age 78 year(s) 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 Clinical History Chronic Systolic Heart Failure COPD Coronary Artery Disease Diabetes GERD CVA Hyperlipidemia Hypertension Ischemic Cardiomyopathy Paroxysmal Atrial Fibrillation PVD Pacemaker 10/08/17 L Cath / Coronary Angio HGB 11.1 HCT 37 % Height: 72 inches Weight: 72.57 kg (160 lbs) BSA: 1.94 m^2 BMI: 21.7 kg/m^2 HR: 65 bpm BP: 107/60 mmHg Summary The left ventricle is chamber size (by vol index) is normal (male - LVED vol - 34-74ml/m2). No evidence of LV hypertrophy. All of the LV segments are severely hypokinetic . LVEF by Abbott's method of disk assessment is severely reduced (20-24%) . Grade 3 diastolic dysfunction (marked elevated LA pressure). RV chamber size is moderately enlarged . Global RV systolic function is moderately reduced . Mild mitral regurgitation. Estimated peak systolic PA pressure is 45-50 mmHg . Previous Study In comparison with the prior exam 01/24/2018 the following changes are noted: left ventricular systolic function has decreased . Signature Findings Technical Quality: Technically adequate exam. Left Ventricle The left ventricle is chamber size (by vol index) is normal (male - LVED vol - 34-74ml/m2). No evidence of LV hypertrophy. All of the LV segments are severely hypokinetic . Global LV systolic function severely reduced . LVEF by Babott's method of disk assessment is severely reduced (20-24%) . Grade 3 diastolic dysfunction (marked elevated LA pressure). Left Atrium LA size is severely enlarged (>48 ml/m2) . Right Ventricle RV chamber size is moderately enlarged . Global RV systolic function is moderately reduced . RV pacing wire is visualized . Right Atrium RA cavity size is severely enlarged . RA pacing wire is visualized . Aortic Valve Mild AoV cusp thickening. A trace of aortic regurgitation. Mitral Valve Mild MV leaflet thickening. Mild mitral regurgitation. Tricuspid Valve TV structure is normal. Mild tricuspid regurgitation. Estimated peak systolic PA pressure is 45-50 mmHg . Pulmonic Valve Mild pulmonary regurgitation. Normal PV structure appears normal by available views. Aorta Aortic root size (SInus of Valsalva diameter) is normal . Pericardium No pericardial effusion is visualized. IVC/SVC/PA/PV/Pleural A left pleural effusion is noted. Left pleural effusion appears large in size. The estimated RA pressure by IVC dynamics 16-20mmHg . The inferior vena cava size is mildly increased . The inferior vena cava is partially visualized. Chambers/Structures Left Atrium LA Volume: 94.49 ml LA Area: 27.64 cm^2 LA Vol. Index: 49 ml/m^2 Left Ventricle LVIDd: 5.28 cm LVIDs: 4.08 cm LV Septum Diastolic: 1.13 cm LV PW Diastolic: 1.1 cm LV FS: 22.7 % LVEDV Abbott's:139.14 ml LVESV Abbott's:92.69 ml LVEDVI: 72 ml/m^2 LVEF Abbott's: 23.2 % LVESVI: 48 ml/m^2 LVOT Diameter: 2.28 cm Right Atrium RA Vol. (Sngl Plane): 143.45 ml Right Ventricle RV Diast Dim.: 5.84 cm Aorta Ao Root S of Juju.: 3.35 cm Doppler/Quantitative Measurements Mitral Valve MV Peak E-Wave: 0.79 m/s MV Peak A-Wave: 0.28 m/s E/A Ratio: 2.88 Peak Gradient: 2.51 mmHg Deceleration Time: 161 msec MV Esa. Peak: Aortic Valve Peak Velocity: 1 m/s Mean Velocity: 0.71 m/s Peak Gradient: 3.99 mmHg Mean Gradient: 2.26 mmHg AV Area (continuity): 2.19 cm^2 AV VTI: 18.49 cm AV DVI: 0.54 LVOT Peak Velocity: 0.61 m/s Peak Gradient: 1.49 mmHg Mean Velocity: 0.39 m/s Mean Gradient: 0.71 mmHg LVOT Diameter: 2.28 cm LVOT VTI: 9.91 cm LVOT Area: 4.08 cm^2 LVOT SV:40.44 ml LVOT CO: 2.63 l/min LVOT CI: 1.36 l/min/m^2 Tricuspid Valve TR Velocity: 2.58 m/s TR Gradient: 26.67 mmHg Performing Organization Address City/State/Zipcode Phone Number [facility] MKCKESS[facility] * Uric acid (12/15/2018 5:15 AM CDT) Uric Acid 8.0 (H) 2.6 - 7.2 mg/dL [facility] Specimen Blood Performing Organization Address City/[facility]/Zipcode Phone Number [facility] [address] [place] [address] [facility] * CT brain without IV contrast (12/14/2018 10:30 AM CDT) Only the most recent of 2 results within the time period is included. Specimen Narrative Performed At FINAL REPORT [facility] CT Head without contrast CLINICAL HISTORY: Confusion/delirium, altered LOC, unexplained TECHNIQUE: Contiguous axial CT images through the head without contrast. This exam was performed according to the departmental dose optimization program which includes automated exposure control, adjustment of the mA and/or kV according to the patient size, and/or use of an iterative reconstruction technique. COMPARISON: 04/16/2018 FINDINGS: There is no definitive CT evidence of acute infarct. There is no intracranial hemorrhage. There is periventricular and subcortical white matter hypodensity which is nonspecific but compatible with chronic microvascular ischemic change. There are atherosclerotic calcifications of the intracranial circulation. There is generalized parenchymal volume loss without hydrocephalus, midline shift, or apparent mass effect. There are no extra-axial fluid collections. The skull is intact. The visualized paranasal sinuses are well-aerated. IMPRESSION: There is no definitive CT evidence of acute infarct. There is no intracranial hemorrhage. Signed: Dru Vang MD Report Verified Date/Time:12/14/2018 10:38:54 Reading Location: [facility] [id number] Neuro Reading Room Procedure Note Interface, External Ris In - 12/14/2018 10:41 AM CDT FINAL REPORT CT Head without contrast CLINICAL HISTORY: Confusion/delirium, altered LOC, unexplained TECHNIQUE: Contiguous axial CT images through the head without contrast. This exam was performed according to the departmental dose optimization program which includes automated exposure control, adjustment of the mA and/or kV according to the patient size, and/or use of an iterative reconstruction technique. COMPARISON: 04/16/2018 FINDINGS: There is no definitive CT evidence of acute infarct. There is no intracranial hemorrhage. There is periventricular and subcortical white matter hypodensity which is nonspecific but compatible with chronic microvascular ischemic change. There are atherosclerotic calcifications of the intracranial circulation. There is generalized parenchymal volume loss without hydrocephalus, midline shift, or apparent mass effect. There are no extra-axial fluid collections. The skull is intact. The visualized paranasal sinuses are well-aerated. IMPRESSION: There is no definitive CT evidence of acute infarct. There is no intracranial hemorrhage. Signed: Dru Vang MD Report Verified Date/Time: 12/14/2018 10:38:54 Reading Location: [address] Neuro Reading Room Performing Organization Address City/State/Zipcode Phone Number RIS * Blood culture (12/13/2018 3:29 PM CDT) Only the most recent of 4 results within the time period is included. Result No growth in 5 days [facility] Specimen Blood Performing Organization Address City/[facility]/Zipcode Phone Number [place] [phone] [place] [address] [facility] * Troponin I (12/13/2018 4:40 AM CDT) Only the most recent of 6 results within the time period is included. Troponin I 0.07 (H) 0.00 - 0.03 ng/mL [facility] Specimen Blood Narrative Performed At Troponin I (TnI) levels must be interpreted in the context of the presenting [facility] symptoms and the clinical findings. Elevated TnI levels indicate myocardial [facility] damage, but are not specific for ischemic heart disease. Elevated TnI levels are seen in patients with other cardiac conditions (including myocarditis and congestive heart failure), and slight TnI elevations occur in patients with other conditions, including sepsis, renal failure, acidosis, acute neurological disease, and persistent tachyarrhythmia. Performing Organization Address City/State/Zipcode Phone Number [facility] [address] [place] [address] [facility] * ECG 12 lead (12/12/2018 9:23 PM CDT) Only the most recent of 7 results within the time period is included. Specimen Narrative Performed At Ventricular Rate 90 BPM GE MUSE Atrial Rate 90 BPM P-R Interval 198 ms QRS Duration 104 ms Q-T Interval 386 ms QTC Calculation(Bazett) 472 ms P [place] 70 degrees R [place] -16 degrees T [place] 93 degrees Normal sinus rhythm Possible Left atrial enlargement Poor R wave progression Nonspecific T wave abnormality Prolonged QT Abnormal ECG When compared with ECG of 12-DEC-2018 14:33, QRS axis Shifted right Voltage criteria for LVH no longer seen T wave inversion no longer evident in Inferior leads T wave inversion no longer evident inV3 QT has shortened Confirmed by MD LYN YOCHAI ([id number]) on 12/13/2018 2:23:07 PM Procedure Note Interface, External Ris In - 12/13/2018 2:23 PM CDT Ventricular Rate 90 BPM Atrial Rate 90 BPM P-R Interval 198 ms QRS Duration 104 ms Q-T Interval 386 ms QTC Calculation(Bazett) 472 ms P [place] 70 degrees R [place] -16 degrees T [place] 93 degrees Normal sinus rhythm Possible Left atrial enlargement Poor R wave progression Nonspecific T wave abnormality Prolonged QT Abnormal ECG When compared with ECG of 12-DEC-2018 14:33, QRS axis Shifted right Voltage criteria for LVH no longer seen T wave inversion no longer evident in Inferior leads T wave inversion no longer evident in V3 QT has shortened Confirmed by MD LYN YOCHAI ([id number]) on 12/13/2018 2:23:07 PM Performing Organization Address City/State/Zipcode Phone Number [employer] * Acetaminophen level (12/12/2018 4:38 PM CDT) Acetaminophen Level <5.7 (L)Comment: Specimen 10.0 - 30.0 ug/mL [facility] slightly hemolyzed [facility] Specimen Blood Narrative Performed At Therapeutic Range: 10.0-30.0 g/mL [facility] Toxic Levels:>200.0 g/mL [facility] Performing Organization Address City/[facility] Centercode Phone Number [facility] [address] [place] [address] [facility] * ECG/EKG Interpretation (12/12/2018 3:04 PM CDT) Only the most recent of 2 results within the time period is included. Narrative Performed At Tor Lin MD 12/12/2018 10:02 PM ECG/EKG Interpretation Date/Time: 12/12/2018 3:04 PM Performed by: Tor Lin MD Authorized by: Tor Lin MD The ECG was interpreted by ED physician. The ECG is interpreted as sinus rhythm. Rate is normal rate. Heart rate is 68 BPM. Abnormal conduction noted: QTc 518. T-wave inversion in lead(s) II, III and aVF. * Hepatic function panel (12/12/2018 2:36 PM CDT) Only the most recent of 2 results within the time period is included. Protein, Total 6.1 6.0 - 8.3 gm/dL [facility] Albumin 3.6 3.5 - 5.0 g/dL [facility] Total Bilirubin 1.1 0.2 - 1.2 mg/dL [facility] Bilirubin, Direct 0.4 0.1 - 0.5 mg/dL [facility] Alkaline Phosphatase 60 40 - 150 U/L [facility] AST 19 5 - 34 U/L [facility] ALT 9 6 - 55 U/L [facility] Specimen Blood Performing Organization Address City/[facility] Centercode Phone Number [facility] [address] [place] [address] [facility] * POC-Lactic Acid, Venous (12/12/2018 2:35 PM CDT) Only the most recent of 2 results within the time period is included. POC-Lactic Acid, Venous 1.5Comment: TESTED AT [facility] 0.9 - 1.7 mmol/L [address] Specimen Blood Performing Organization Address [facility] Centercoct Phone Number [address] * Type and screen, automated (07/06/2018 3:22 PM DOCTOR OSTEOPATHIC) Only the most recent of 3 results within the time period is included. ABO/RH AUTOMATED (BEAKER) O POSITIVE [facility] Ab Scrn NEGATIVE [facility] Specimen Blood Performing Organization Address [facility] Centercoct Phone Number [address] * Direct [facility] (VALERY)/Direct Jana (07/06/2018 3:22 PM DOCTOR OSTEOPATHIC) Only the most recent of 3 results within the time period is included. Direct [facility]-IGG NEGATIVE [facility] Direct [facility]-C3B, C3D NEGATVIE [facility] Specimen Blood Performing Organization Address [facility] Phone Number [address] * TRANSFUSION SERVICE REPORT - SCAN (05/05/2018 6:04 PM DOCTOR OSTEOPATHIC) Only the most recent of 4 results within the time period is included. Narrative Performed At * aPTT (05/04/2018 1:28 PM DOCTOR OSTEOPATHIC) Only the most recent of 2 results within the time period is included. PTT 38.9 (H) 22.5 - 36.0 seconds [facility] Specimen Blood Performing Organization Address [facility] Center[facility]ct Phone Number [address] * Protime-INR (05/04/2018 1:28 PM DOCTOR OSTEOPATHIC) Only the most recent of 2 results within the time period is included. Protime 17.7 (H) 11.7 - 14.7 seconds [facility] INR 1.5 <=5.9 [facility] Specimen Blood Narrative Performed At RECOMMENDED COUMADIN/WARFARIN INR THERAPY RANGES [facility] STANDARD DOSE: 2.0 - 3.0 Includes: PROPHYLAXIS for venous thrombosis, [facility] systemic embolization; TREATMENT for venous thrombosis and/or pulmonary embolus. HIGH RISK: Target INR is 2.5-3.5 for patients with mechanical heart valves. Performing Organization Address City/[facility] Centercode Phone Number [address] [address] [facility] * Fibrinogen (05/04/2018 1:28 PM DOCTOR OSTEOPATHIC) Only the most recent of 2 results within the time period is included. Fibrinogen 277 225 - 434 mg/dl [facility] Specimen Blood Performing Organization Address [facility] [place] [address] [phone] [place] [address] * Bilirubin, total and direct (05/04/2018 1:28 PM DOCTOR OSTEOPATHIC) Only the most recent of 2 results within the time period is included. Total Bilirubin 0.4 0.2 - 1.2 mg/dL [facility] Bilirubin, Direct 0.2 0.1 - 0.5 mg/dL [facility] Specimen Blood Performing Organization Address City/[facility] Centercoct Phone Number [address] [address] [facility] * (LDH) Lactate dehydrogenase (05/04/2018 1:28 PM DOCTOR OSTEOPATHIC) Only the most recent of 2 results within the time period is included. LDH 204 125 - 220 U/L [facility] Specimen Blood Performing Organization Address City/[facility] Centercode Phone Number [address] [address] [facility] * CK (05/04/2018 1:28 PM DOCTOR OSTEOPATHIC) Only the most recent of 2 results within the time period is included. Total CK 33 29 - 200 U/L [facility] Specimen Blood Performing Organization Address [facility] Centercode Phone Number [place] [phone] * Lactic acid, venous, whole blood (04/29/2018 5:46 AM CDT) Lactate, Venous 1.2Comment: Specimen slightly 0.5 - 2.2 mmol/L [facility] hemolyzed [facility] Specimen Blood Narrative Performed At Effective 10/31/2015: Units/Reference Range Change [facility] New: 0.5-2.2 mmol/LPrevious: 5-20 mg/dL [facility] Performing Organization Address [facility] Centercoct Phone Number [place] [phone] * Hemoglobin (04/29/2018 5:41 AM CDT) Hemoglobin 11.0 (L) 13.7 - 17.5 GM/DL [facility] Specimen Blood Narrative Performed At POST TRANSFUSIONREDES PROTOCOL [facility] Performing Organization Address [facility] [place] [address] [phone] [place] [address] * Rapid drug screen, urine (04/29/2018 4:09 AM CDT) Barbiturate Screen Negative Negative [facility] Benzodiazepine Screen Negative Negative [facility] Cocaine (Metab.) Screen Negative Negative [facility] Methadone Screen Negative Negative [facility] Opiate Screen Negative Negative [facility] Cannabinoid Screen Negative Negative [facility] Amph/Methamph Screen Negative Negative [facility] Phencyclidine Screen Negative Negative [facility] Oxycodone Screen Negative Negative [facility] Specimen Urine Narrative Performed At DRUGCUWanna Migrate [facility] Cocaine 300 ng/mL [facility] Oyytjueslcx16 ng/mL [id number] ng/mL Barbiturate 200 ng/mL Fhqgbpzaelkpa08 ng/mL Lwmxnv452 ng/mL Methadone 300 ng/mL Amphetamine/ 1000 ng/mL Methamphetamine Oxycodone 300 ng/mL This assay provides an unconfirmed qualitative test result for the clinical management of patients in emergency situations. Chain of custody not maintained. Some fxdh-any-dzkzmtq medications, as well as adulterants, may cause inaccurate results. Clinical correlation should be applied. A more comprehensive drug screen or confirmation of a detected drug may be performed upon request. Performing Organization Address [facility] Centercoct Phone Number [address] [address] [facility] * Prepare Leuko-Red RBC (04/28/2018 11:54 PM CDT) CROSSMATCH COMPATIBLE SAFETRACE TX Unit ABO O Pos SAFETRACE TX UNIT NUMBER [id number] SAFETRACE TX Status TRANSFUSED SAFETRACE TX Blood Bank Product RED BLOOD CELLS SAFETRACE TX PRODUCT CODE [id number] SAFETRACE TX CROSSMATCH COMPATIBLE SAFETRACE TX Unit ABO O Pos SAFETRACE TX UNIT NUMBER [id number] SAFETRACE TX Status TRANSFUSED SAFETRACE TX Blood Bank Product RED BLOOD CELLS SAFETRACE TX PRODUCT CODE [id number] SAFETRACE TX Specimen Other Performing Organization Address [facility] Phone Number SAFETRACE [place] * REPORT OF PROCEDURE - ENDOSCOPY URL (04/28/2018 6:57 PM CDT) Narrative Performed At * Transfuse Leuko-Red RBC (04/28/2018 4:39 AM CDT) Only the most recent of 3 results within the time period is included. * Hemoglobin A1c (04/27/2018 9:59 AM CDT) Hemoglobin A1C 4.5 4.3 - 6.1 % [facility] Specimen Blood Performing Organization Address City/[facility] Center[facility] Phone Number [phone] [facility] * Urinalysis w/Microscopic + Reflex to Culture (04/27/2018 6:17 AM CDT) Color, UA Yellow [facility] Clarity, UA Clear [facility] Specific [place], UA 1.017 1.001 - 1.035 [facility] pH, UA 6.0 5.0 - 8.0 [facility] Protein, UA Negative Negative [facility] Glucose, UA Negative Negative [facility] Ketones, UA Negative Negative [facility] Bilirubin, UA Negative Negative [facility] Blood, UA Negative Negative [facility] Nitrite, UA Negative Negative [facility] Leukocytes, UA Negative Negative [facility] Urobilinogen, UA 0.2 0.2 - 1.0 mg/dL [facility] RBC, UA 2 /HPF [facility] WBC, UA 2 /HPF [facility] Mucus Rare [facility] Hyaline Casts, UA 4 /LPF [facility] Specimen Source [facility] Specimen Urine Performing Organization Address City/State/Zipcode Phone Number [facility] [address] [place], [place] [id number] [facility] * POCT OCCULT BLOOD STOOL (GUIAC) [facility] ED [facility] ONLY (04/26/2018 6:40 PM CDT) Fecal Occult Blood Positive (A) Negative (Guiac), POC QC Result Acceptable?, QC Acceptable POC FOB Card Lot #, POC [id number] FOB Developer Lot # [id number] 2019- Specimen Stool * Creatine Kinase (CK), Total and MB (not available at [facility]) (04/26/2018 5:36 PM CDT) Only the most recent of 2 results within the time period is included. Total CK 32 29 - 200 U/L [facility] CK-MB 1.9 0.0 - 6.6 ng/mL [facility] MB Relative Index 5.9 % [facility] Specimen Blood Narrative Performed At CK-MB Reference Range: [facility] <6.7Normal [facility] 6.7-10.0Borderline >10.0 Abnormal Performing Organization Address City/State/Zipcode Phone Number [facility] [address] [place] [address] [facility] * CTA carotid (04/16/2018 1:26 PM CDT) Specimen Narrative Performed At FINAL REPORT [place] CTA head and neck with contrast INDICATION: [...] head 01/07/2017, catheter angiogram 06/04/2011 FINDINGS: CTA neck: Artifacts from dense right sided venous contrast, a left chest pacing device, and vascular pulsation limit evaluation of the proximal great vessels. There is atherosclerotic plaque in the arch and proximal great vessels. There has been prior right subclavian artery stenting poor opacification of the stented segment suspicious for high-grade stenosis. Left common carotid artery origin in the dominant artery stenoses are poorly depicted due to artifacts. The right common carotid artery origin is obscured. In the remainder of the common carotid arteries, there is right greater than left sided plaque with mild stenosis in the proximal right common carotid artery.. There has been previous left carotid endarterectomy. No measurable left cervical ICA stenosis is seen by NASCET criteria. Surgical clips adjacent to the right carotid bifurcation also suggest endarterectomy. Severe right carotid bifurcation stenosis is on the order of 90%. There is a tandem 60-70% stenosis at the proximal cervical ICA level. There is severe right external carotid artery origin stenosis. There is severe bilateral vertebral artery origin stenosis. The cervical vertebral arteries are tortuous with mild V2 segment spondylotic stenoses. CTA head: There is mild to moderate bilateral carotid siphon stenosis and moderate left supraclinoid ICA stenosis. There is moderate to severe left MCA M1 segment stenosis, mild to moderate right MCA M1 segment stenosis, moderate left ORNAMENTAL P[employer] STICKER P1 segment stenosis, and moderate to severe right EULALIA A2 segment stenosis. The right EULALIA A1 segment is hypoplastic or aplastic. The remaining proximal [place] vessels demonstrate no high grade stenosis or major branch occlusion. No saccular aneurysm is apparent. Other findings: There has been previous dorsal decompression and posterior spinal fusion from C3-C6. Asymmetric lucency along the left sided lateral mass screws suggests loosening. Hardware failure seen on prior CT cervical spine 11/01/2013 is grossly unchanged. Multilevel degenerative spine changes remain present.. There is osseous fusion across the C6-7 and T1-T2 discs and partial osseous fusion at C5-6. There is a 6 mm nodule of the left lung apex. Mild emphysematous changes are present. There are dental caries. 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 Microvascular ischemic changes are grossly similar to 02/21/2018 and chronic appearing, with basal ganglia lacunar infarcts. No acute hemorrhage or mass effect is evident. Stable ventriculomegaly could be ex vacuo. NPH should be excluded clinically. There has been cataract surgery. IMPRESSION: 1. Substantial artifacts from venous contrast, left chest pacing device, and vascular pulsation limit assessment of the proximal great vessels. Proximal great vessel stenoses and right subclavian artery in-stent restenosis is suspected, potentially significant. Chest CTA is suggested for better depiction. 2. Previous bilateral carotid endarterectomy. No evident left ICA stenosis by NASCET criteria. Severe right carotid bifurcation stenosis, on the order of 90%, and tandem stenosis in the right proximal cervical ICA, the order of 60-70%. 3. Severe right external carotid artery origin stenosis. 4. Suspected severe bilateral vertebral artery origin stenoses. 5. Multifocal intracranial atherosclerosis with stenoses as discussed, including moderate to severe left MCA M1 segment origin and right EULALIA A2 segment stenoses. No [place] of Raman major branch occlusion seen. 6. Cervical spine degenerative and postsurgical changes. Apparent posterior element hardware failure noted on cervical spine CT 11/01/2013 is grossly unchanged. 7. Left lung apex 6 mm nodule. Advise chest CT follow up. Signed: Shaw Orlando MD Report Verified Date/Time:04/16/2018 14:13:47 Reading Location: [facility] C013V Neuro Reading Room Procedure Note Interface, External Ris In - 04/16/2018 2:16 PM CDT FINAL REPORT CTA head and neck with [...] head 01/07/2017, catheter angiogram 06/04/2011 FINDINGS: CTA neck: Artifacts from dense right sided venous contrast, a left chest pacing device, and vascular pulsation limit evaluation of the proximal great vessels. There is atherosclerotic plaque in the arch and proximal great vessels. There has been prior right subclavian artery stenting poor opacification of the stented segment suspicious for high-grade stenosis. Left common carotid artery origin in the dominant artery stenoses are poorly depicted due to artifacts. The right common carotid artery origin is obscured. In the remainder of the common carotid arteries, there is right greater than left sided plaque with mild stenosis in the proximal right common carotid artery.. There has been previous left carotid endarterectomy. No measurable left cervical ICA stenosis is seen by NASCET criteria. Surgical clips adjacent to the right carotid bifurcation also suggest endarterectomy. Severe right carotid bifurcation stenosis is on the order of 90%. There is a tandem 60-70% stenosis at the proximal cervical ICA level. There is severe right external carotid artery origin stenosis. There is severe bilateral vertebral artery origin stenosis. The cervical vertebral arteries are tortuous with mild V2 segment spondylotic stenoses. CTA head: There is mild to moderate bilateral carotid siphon stenosis and moderate left supraclinoid ICA stenosis. There is moderate to severe left MCA M1 segment stenosis, mild to moderate right MCA M1 segment stenosis, moderate left ORNAMENTAL PLASTER STICKER P1 segment stenosis, and moderate to severe right EULALIA A2 segment stenosis. The right EULALIA A1 segment is hypoplastic or aplastic. The remaining proximal [place] vessels demonstrate no high grade stenosis or major branch occlusion. No saccular aneurysm is apparent. Other findings: There has been previous dorsal decompression and posterior spinal fusion from C3-C6. Asymmetric lucency along the left sided lateral mass screws suggests loosening. Hardware failure seen on prior CT cervical spine 11/01/2013 is grossly unchanged. Multilevel degenerative spine changes remain present.. There is osseous fusion across the C6-7 and T1-T2 discs and partial osseous fusion at C5-6. There is a 6 mm nodule of the left lung apex. Mild emphysematous changes are present. There are dental caries. 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 Microvascular ischemic changes are grossly similar to 02/21/2018 and chronic appearing, with basal ganglia lacunar infarcts. No acute hemorrhage or mass effect is evident. Stable ventriculomegaly could be ex vacuo. NPH should be excluded clinically. There has been cataract surgery. IMPRESSION: 1. Substantial artifacts from venous contrast, left chest pacing device, and vascular pulsation limit assessment of the proximal great vessels. Proximal great vessel stenoses and right subclavian artery in-stent restenosis is suspected, potentially significant. Chest CTA is suggested for better depiction. 2. Previous bilateral carotid endarterectomy. No evident left ICA stenosis by NASCET criteria. Severe right carotid bifurcation stenosis, on the order of 90%, and tandem stenosis in the right proximal cervical ICA, the order of 60-70%. 3. Severe right external carotid artery origin stenosis. 4. Suspected severe bilateral vertebral artery origin stenoses. 5. Multifocal intracranial atherosclerosis with stenoses as discussed, including moderate to severe left MCA M1 segment origin and right EULALIA A2 segment stenoses. No [place] of [place] major branch occlusion seen. 6. Cervical spine degenerative and postsurgical changes. Apparent posterior element hardware failure noted on cervical spine CT 11/01/2013 is grossly unchanged. 7. Left lung apex 6 mm nodule. Advise chest CT follow up. Signed: Shaw Orlando MD Report Verified Date/Time: 04/16/2018 14:13:47 Reading Location: [facility] Neuro Reading Room Performing Organization Address City/State/Zipcode Phone Number SAW BUCHANAN * CTA brain (04/16/2018 1:26 PM CDT) Specimen Narrative Performed At FINAL REPORT SAW BUCHANAN CTA head and neck with contrast INDICATION: [...] head 01/07/2017, catheter angiogram 06/04/2011 FINDINGS: CTA neck: Artifacts from dense right sided venous contrast, a left chest pacing device, and vascular pulsation limit evaluation of the proximal great vessels. There is atherosclerotic plaque in the arch and proximal great vessels. There has been prior right subclavian artery stenting poor opacification of the stented segment suspicious for high-grade stenosis. Left common carotid artery origin in the dominant artery stenoses are poorly depicted due to artifacts. The right common carotid artery origin is obscured. In the remainder of the common carotid arteries, there is right greater than left sided plaque with mild stenosis in the proximal right common carotid artery.. There has been previous left carotid endarterectomy. No measurable left cervical ICA stenosis is seen by NASCET criteria. Surgical clips adjacent to the right carotid bifurcation also suggest endarterectomy. Severe right carotid bifurcation stenosis is on the order of 90%. There is a tandem 60-70% stenosis at the proximal cervical ICA level. There is severe right external carotid artery origin stenosis. There is severe bilateral vertebral artery origin stenosis. The cervical vertebral arteries are tortuous with mild V2 segment spondylotic stenoses. CTA head: There is mild to moderate bilateral carotid siphon stenosis and moderate left supraclinoid ICA stenosis. There is moderate to severe left MCA M1 segment stenosis, mild to moderate right MCA M1 segment stenosis, moderate left ORNAMENTAL PLASTER STICKER P1 segment stenosis, and moderate to severe right EULALIA A2 segment stenosis. The right EULALIA A1 segment is hypoplastic or aplastic. The remaining proximal [place] vessels demonstrate no high grade stenosis or major branch occlusion. No saccular aneurysm is apparent. Other findings: There has been previous dorsal decompression and posterior spinal fusion from C3-C6. Asymmetric lucency along the left sided lateral mass screws suggests loosening. Hardware failure seen on prior CT cervical spine 11/01/2013 is grossly unchanged. Multilevel degenerative spine changes remain present.. There is osseous fusion across the C6-7 and T1-T2 discs and partial osseous fusion at C5-6. There is a 6 mm nodule of the left lung apex. Mild emphysematous changes are present. There are dental caries. 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 Microvascular ischemic changes are grossly similar to 02/21/2018 and chronic appearing, with basal ganglia lacunar infarcts. No acute hemorrhage or mass effect is evident. Stable ventriculomegaly could be ex vacuo. NPH should be excluded clinically. There has been cataract surgery. IMPRESSION: 1. Substantial artifacts from venous contrast, left chest pacing device, and vascular pulsation limit assessment of the proximal great vessels. Proximal great vessel stenoses and right subclavian artery in-stent restenosis is suspected, potentially significant. Chest CTA is suggested for better depiction. 2. Previous bilateral carotid endarterectomy. No evident left ICA stenosis by NASCET criteria. Severe right carotid bifurcation stenosis, on the order of 90%, and tandem stenosis in the right proximal cervical ICA, the order of 60-70%. 3. Severe right external carotid artery origin stenosis. 4. Suspected severe bilateral vertebral artery origin stenoses. 5. Multifocal intracranial atherosclerosis with stenoses as discussed, including moderate to severe left MCA M1 segment origin and right EULALIA A2 segment stenoses. No [place] of [place] major branch occlusion seen. 6. Cervical spine degenerative and postsurgical changes. Apparent posterior element hardware failure noted on cervical spine CT 11/01/2013 is grossly unchanged. 7. Left lung apex 6 mm nodule. Advise chest CT follow up. Signed: Shaw Orlando MD Report Verified Date/Time:04/16/2018 14:13:47 Reading Location: [address] Neuro Reading Room Procedure Note Interface, External Ris In - 04/21/2018 5:46 PM CDT FINAL REPORT CTA head and neck with [...] head 01/07/2017, catheter angiogram 06/04/2011 FINDINGS: CTA neck: Artifacts from dense right sided venous contrast, a left chest pacing device, and vascular pulsation limit evaluation of the proximal great vessels. There is atherosclerotic plaque in the arch and proximal great vessels. There has been prior right subclavian artery stenting poor opacification of the stented segment suspicious for high-grade stenosis. Left common carotid artery origin in the dominant artery stenoses are poorly depicted due to artifacts. The right common carotid artery origin is obscured. In the remainder of the common carotid arteries, there is right greater than left sided plaque with mild stenosis in the proximal right common carotid artery.. There has been previous left carotid endarterectomy. No measurable left cervical ICA stenosis is seen by NASCET criteria. Surgical clips adjacent to the right carotid bifurcation also suggest endarterectomy. Severe right carotid bifurcation stenosis is on the order of 90%. There is a tandem 60-70% stenosis at the proximal cervical ICA level. There is severe right external carotid artery origin stenosis. There is severe bilateral vertebral artery origin stenosis. The cervical vertebral arteries are tortuous with mild V2 segment spondylotic stenoses. CTA head: There is mild to moderate bilateral carotid siphon stenosis and moderate left supraclinoid ICA stenosis. There is moderate to severe left MCA M1 segment stenosis, mild to moderate right MCA M1 segment stenosis, moderate left ORNAMENTAL PLASTER STICKER P1 segment stenosis, and moderate to severe right EULALIA A2 segment stenosis. The right EULALIA A1 segment is hypoplastic or aplastic. The remaining proximal [place] vessels demonstrate no high grade stenosis or major branch occlusion. No saccular aneurysm is apparent. Other findings: There has been previous dorsal decompression and posterior spinal fusion from C3-C6. Asymmetric lucency along the left sided lateral mass screws suggests loosening. Hardware failure seen on prior CT cervical spine 11/01/2013 is grossly unchanged. Multilevel degenerative spine changes remain present.. There is osseous fusion across the C6-7 and T1-T2 discs and partial osseous fusion at C5-6. There is a 6 mm nodule of the left lung apex. Mild emphysematous changes are present. There are dental caries. 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 Microvascular ischemic changes are grossly similar to 02/21/2018 and chronic appearing, with basal ganglia lacunar infarcts. No acute hemorrhage or mass effect is evident. Stable ventriculomegaly could be ex vacuo. NPH should be excluded clinically. There has been cataract surgery. IMPRESSION: 1. Substantial artifacts from venous contrast, left chest pacing device, and vascular pulsation limit assessment of the proximal great vessels. Proximal great vessel stenoses and right subclavian artery in-stent restenosis is suspected, potentially significant. Chest CTA is suggested for better depiction. 2. Previous bilateral carotid endarterectomy. No evident left ICA stenosis by NASCET criteria. Severe right carotid bifurcation stenosis, on the order of 90%, and tandem stenosis in the right proximal cervical ICA, the order of 60-70%. 3. Severe right external carotid artery origin stenosis. 4. Suspected severe bilateral vertebral artery origin stenoses. 5. Multifocal intracranial atherosclerosis with stenoses as discussed, including moderate to severe left MCA M1 segment origin and right EULALIA A2 segment stenoses. No [place] of [place] major branch occlusion seen. 6. Cervical spine degenerative and postsurgical changes. Apparent posterior element hardware failure noted on cervical spine CT 11/01/2013 is grossly unchanged. 7. Left lung apex 6 mm nodule. Advise chest CT follow up. Signed: Shaw Orlando MD Report Verified Date/Time: 04/16/2018 14:13:47 Reading Location: [address] Neuro Reading Room Performing Organization Address City/State/Zipcode Phone Number GE RIS * POC-Creatinine (04/16/2018 1:16 PM CDT) POC-Creatinine 0.8Comment: TESTED AT [facility] 0.6 - 1.3 mg/dL [address] POC-EGFR 94 mL/min/1.73M2 [facility] Specimen Blood Performing Organization Address City/[facility]/[place] [address] [facility] * Vancomycin level, trough (02/23/2018 8:47 PM CDT) Vancomycin Tr 15.4 10.0 - 20.0 ug/mL [facility] Specimen Blood Performing Organization Address City/[facility]/Zipcode Phone Number [facility] [address] [place] [address] [facility] * Manual Differential (01/27/2018 5:02 AM CDT) % Neutros 85 % [facility] % Lymphs 6 % [facility] % Monos 9 % [facility] # Neutros 13.52 (H) 1.78 - 5.38 K/ul [facility] # Lymphs 0.95 (L) 1.32 - 3.57 K/ul [facility] # Monos 1.43 (H) 0.30 - 0.82 K/uL [facility] Total Counted 100 [facility] WBC Morphology Normal [facility] Large Platelet Present [facility] Polychromasia 1+ few [facility] Artifact Present [facility] Platelet Conc Adequate [facility] Specimen Blood Narrative Performed At Received comment: [facility] User comments: [facility] Slide comments: Performing Organization Address City/State/Zipcode Phone Number [facility] [address] [place] [address] [facility] after 01/27/2018 Insurance Payer Benefit Subscriber ID Type Phone Address Plan / Group [facility] xxxxxxxxx MEDICARE MGD CARE MEDICARE HMO Advance Directives For more information, please contact: [facility] [place] [address] Date Inactivated Comments Code Status Date Activated 12/29/2018 5:41 PM Full Code 12/18/2018 12:48 PM This code status was determined by: Patient 12/12/2018 1:55 PM Full Code 04/26/2018 7:54 PM This code status was determined by: Patient 01/29/2018 7:54 PM Full Code 01/23/2018 11:05 PM This code status was determined by: Patient 10/08/2017 6:06 PM Full Code 10/08/2017 7:07 AM This code status was determined by: Patient 01/14/2017 4:56 PM Full Code 01/06/2017 5:23 AM This code status was determined by: Patient
--- OUTSIDE RECORDS SUMMARY | 2019-01-28 23:31 | XMS REPORT | Summary of Care ---
Author Author [facility] Organization [facility] Address Unknown Phone Unavailable Encounter HQ Eileen(FIN) [id number] Date(s): 05/05/18 - 05/05/18 [facility] [address] [place] [address]- Discharge Disposition: Home or Self Care Attending Physician: Yesenia Solano MD Vital Signs Most recent to 1 oldest [Reference Range]: Height 172.72 cm (05/05/18 2:18 PM) Temperature Oral 97.1 DegF [96.4-99.1 DegF] (05/05/18 2:18 PM) Blood Pressure 152/84 mmHg [90-140/60-90 mmHg] *HI* (05/05/18 2:18 PM) Respiratory Rate 16 BRMIN [14-20 BRMIN] (05/05/18 2:18 PM) Peripheral Pulse 62 bpm Rate [60-100 bpm] (05/05/18 2:18 PM) Weight 66.136 kg (05/05/18 2:18 PM) Body Mass Index 22.17 m2 (05/05/18 2:18 PM) Problem List Condition Effective Dates Status [...] Active lung disease5 Depression, Active major(Confirmed) Dizziness(Confirmed) 11/11/14 Active 6 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 Allergies, Adverse Reactions, Alerts No Known Medication Allergies Medications ALPRAZOLam 0.5 mg oral tablet, disintegrating 0.5 mg=1 tab, PO, BID, PRN for anxiety, # 60 tab, 0 Refill(s) Start Date: 07/21/18 Stop Date: 08/27/18 Status: Completed ALPRAZOLam 0.5 mg oral tablet, disintegrating 0.5 mg=1 tab, PO, BID, PRN for anxiety, # 60 tab, 0 Refill(s) Start Date: 05/05/18 Stop Date: 07/21/18 Status: Completed amLODIPine 5 mg oral tablet 5 mg=1 tab, PO, Daily, # 30 tab, 0 Refill(s) Start Date: 05/05/18 Status: Ordered apixaban 5 mg oral tablet 5 mg, PO, Q12H, 0 Refill(s) Start Date: 05/05/18 Status: Ordered atorvastatin 40 mg oral tablet 40 mg=1 tab, PO, Bedtime, # 90 tab, 1 Refill(s) Start Date: 05/05/18 Status: Ordered metoprolol 25 mg oral tablet, extended release 25 mg=1 tab, PO, BID, # 90 tab, 0 Refill(s) Start Date: 05/05/18 Status: Ordered montelukast 5 mg oral tablet, chewable 5 mg=1 tab, CHEW, Bedtime, # 30 tab, 0 Refill(s) Start Date: 05/05/18 Status: Ordered Multaq 400 mg oral tablet 400 mg=1 tab, PO, BID, # 60 tab, 3 Refill(s) Start Date: 05/05/18 Status: Ordered ProAir HFA 90 mcg/inh inhalation aerosol with adapter 2 puff, INHALER, Q4H, PRN for wheezing, # 8.5 gm, 0 Refill(s) Start Date: 05/05/18 Status: Ordered tizanidine 2 mg oral tablet 2 mg=1 tab, PO, BID, PRN for muscle spasms, # 40 tab, 1 Refill(s), Pharmacy: [facility] [employer] [id number] Start Date: 05/05/18 Stop Date: 07/21/18 Status: Completed tizanidine 2 mg oral tablet =1 tab, PO, BID, PRN NEEDED FOR MUSCLE SPASMS, # 40 tab, Pharmacy: [facility] [id number] Start Date: 07/21/18 Stop Date: 08/05/18 Status: Discontinued Vitamin D2 1,000 units, PO, 0 Refill(s) Start Date: 05/05/18 Status: Ordered Results No data available for [...] no reaction. 3Result Comment: fluzone high dose [[id number]]. Migrated from OBS ; Data migrated from [employer] on 07/31/2015. 4Result Comment: done high dose. Migrated from OBS ; Data migrated from [employer] on 07/31/2015. 5Result Comment: pneumovax 23 [[id number]]. Migrated from OBS VIS: Pneumovax 23: 04/03/09 ; Data migrated from [employer] on 07/31/2015. Procedures Procedure Date Related Diagnosis [...]
--- OUTSIDE RECORDS SUMMARY | 2019-01-28 23:31 | XMS REPORT | Continuity of Care Document ---
Author Author [employer] Organization [employer] Address Unknown Phone Unavailable Care Team Providers Care Associate Application Developer Name Role Phone GLIIF Information [employer] Unavailable Unavailable Problems Problem Status Onset Date Classification Date Reported Comments Source FALL Active 06/01/2017 [facility] SLURRED SPEACH/PNEUMONIA Active 06/01/2017 [facility] SYNCOPE Active 11/04/2016 [facility] SYNCOPE AND COLLAPSE, TRANSIENT HYPOTENS Active 11/04/2016 [facility] AMS Active 10/07/2016 [facility] CHANGE IN MENTAL STATUS, ACCIDENTAL OVER Active 10/07/2016 [facility] LOW BLOOD PRESSURE Active 09/15/2016 [facility] ATYPICAL SYNCOPE, UPPER GI BLEED Active 09/15/2016 [facility] RADICULOPATHY Active 10/17/2015 [facility] S06.5X0A - TRAUM SUBDR HEM W/O LOSS OF C Active 10/04/2015 [facility] BROKEN RIB Active 09/21/2015 [facility] FRONTAL LOBE INTERCRANIAL HEMORRHAGIC Active 09/21/2015 [facility] Orthostatic hypotension8, 9 Active 11/03/2014 Problem 01/06/2019 Data migrated from [employer] on 01/03/15. Data migrated from [employer] on 11/28/14. [facility] Dizziness6 Active 05/09/2014 Problem 01/06/2019 Data migrated from [employer] on 11/25/14. [facility] Cardiac pacemaker3 Active 04/24/2014 Problem 01/06/2019 Data migrated from [employer] on 11/25/14. [facility] Chronic obstructive lung disease5 Active 04/24/2014 Problem 01/06/2019 Data migrated from [employer] on 11/25/14. [facility] UNK Active 04/03/2014 [facility] V76.51 Active 04/03/2014 [facility] Benign prostatic hyperplasia2 Active 11/25/2013 Problem 01/06/2019 Data migrated from [employer] on 11/25/14. [facility] [place] Anxiety disorder1 Active 03/02/2013 Problem 01/06/2019 Data migrated from [employer] on 11/25/14. [facility] [place] [id number] Active 03/02/2013 Problem 01/06/2019 Data migrated from [employer] on 11/25/14. [facility] [place] Chronic back pain4 Active 06[birth year]29/1959 Problem 01/06/2019 Data migrated from [employer] on 11/25/14. [facility] Cardiac pacemaker Resolved Problem 10/21/2015 [facility] [place] COPD Resolved Problem 10/21/2015 [facility] Hyperlipidemia7 Active Problem 10/21/2015 Data migrated from [employer] on 11/25/14. [facility] TIA Resolved Problem 10/21/2015 [facility] Acute bronchitis Active Problem 12/07/2016 [facility] [place] Asthma Resolved Problem 12/07/2016 [facility] Anxiety Active Problem 04/16/2014 [facility] Arthritis Active Problem 04/16/2014 [facility] Depression Active Problem 04/16/2014 [facility] Hypertension Active Problem 04/16/2014 [facility] Pacemaker Resolved Problem 12/07/2016 [facility] Diarrhea Active Problem 12/07/2016 [facility] Penile bleeding Active Problem 12/07/2016 [facility] Anemia due to acute blood loss Active Problem 01/06/2019 [facility] Physical debility Active Problem 01/06/2019 [facility] Debility Active Problem 01/06/2019 [facility] Benign essential hypertension Active Problem 01/06/2019 [facility] Bilateral hearing loss Active Problem 01/06/2019 [facility] CAD (Confirmed) Active Problem 01/06/2019 [facility] Candidal intertrigo Active Problem 01/06/2019 [facility] Carotid stenosis Active Problem 01/06/2019 [facility] Depression, major Active Problem 01/06/2019 [facility] [place] Gastritis Active Problem 01/06/2019 [facility] 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 [facility] Encounter for immunization Active Problem 01/06/2019 [facility] Prediabetes Active Problem 01/06/2019 [facility] S/P PTCA (Confirmed) Active Problem 01/06/2019 [facility] Screening for prostate cancer Active Problem 01/06/2019 [facility] Seborrheic dermatitis Active Problem 01/06/2019 [facility] Left shoulder pain Active Problem 01/06/2019 [facility] Sick sinus [id number] Active Problem 01/06/2019 Data migrated from [employer] on 11/25/14. [facility] Subcortical hemorrhage Resolved Problem 01/06/2019 [facility] Tinnitus Active Problem 01/06/2019 [facility] Easy fatigability Active Problem 01/06/2019 [facility] Unsteady gait Active Problem 01/06/2019 [facility] UGIB (Confirmed) Resolved Problem 01/06/2019 [facility] Blood vessel disorder Active Problem 01/06/2019 [facility] Vertigo Active Problem 01/06/2019 [facility] COPD exacerbation Resolved Problem 12/07/2016 [facility] SCREEN MALIG NEOP-COLON Active [facility] PRE-OP EXAM NEC Active [facility] OTHER SPECIFIED CONGENITAL DEFORMITIES Active [facility] SYNCOPE AND COLLAPSE Active [facility] GASTROINTESTINAL HEMORRHAGE, UNSPECIFIED Active [facility] ALTERED MENTAL STATUS, UNSPECIFIED Active [facility] POISONING BY UNSP DRUG/MEDS/BIOL SUBST, Active [facility] MUSCLE SPASM OF BACK Active [facility] HYPOTENSION, UNSPECIFIED Active [facility] SLURRED SPEECH Active [facility] PNEUMONIA, UNSPECIFIED ORGANISM Active [facility] Medications Medication Details Route Status Patient Instructions Ordering Provider Order Date Source ALPRAZOLam 0.5 mg oral tablet, disintegrating 0.5 mg=1 tab, PO, BID, PRN for anxiety, # 60 tab, 0 Refill(s) Active 12/06/2018 [facility] tizanidine 2 mg oral tablet =1 tab, PO, TID, PRN NEEDED FOR MUSCLE SPASMS, # 60 tab, Pharmacy: [id number] Active 10/27/2018 [facility] ALPRAZOLam 0.5 mg oral tablet, disintegrating 0.5 mg=1 tab, PO, BID, PRN for anxiety, # 60 tab, 0 Refill(s) Active 10/07/2018 [facility] albuterol 90 mcg/inh inhalation aerosol 2 puff, INHALATION, Q6H, PRN Shortness of breath, wheezing, # 3 ea, 2 Refill(s), Pharmacy: [facility] [id number] Active 10/01/2018 [facility] ALPRAZOLam 0.5 mg oral tablet, disintegrating 0.5 mg=1 tab, PO, BID, PRN for anxiety, # 60 tab, 0 Refill(s) Active 08/27/2018 [facility] tizanidine 2 mg oral tablet =1 tab, PO, TID, PRN Muscle Spasms, # 60 tab, 1 Refill(s), Pharmacy: [id number] Active 08/05/2018 [facility] ALPRAZOLam 0.5 mg oral tablet, disintegrating 0.5 mg=1 tab, PO, BID, PRN for anxiety, # 60 tab, 0 Refill(s) No Longer Active 07/21/2018 [facility] tizanidine 2 mg oral tablet =1 tab, PO, BID, PRN NEEDED FOR MUSCLE SPASMS, # 40 tab, Pharmacy: [facility] [id number] No Longer Active 07/21/2018 [facility] duloxetine 60 MG Enteric Coated Capsule [Cymbalta] =1 cap, PO, BID, # 180 cap, 1 Refill(s), CARIE, Pharmacy: [facility] [id number] Active 06/17/2018 [facility] tizanidine 2 mg oral tablet 2 mg=1 tab, PO, BID, PRN for muscle spasms, # 40 tab, 1 Refill(s), Pharmacy: [facility] [id number] No Longer Active 05/05/2018 [facility] ALPRAZOLam 0.5 mg oral tablet, disintegrating 0.5 mg=1 tab, PO, BID, PRN for anxiety, # 60 tab, 0 Refill(s) No Longer Active 05/05/2018 [facility] Vitamin D2 1,000 units, PO, 0 Refill(s) Active 05/05/2018 [facility] dronedarone 400 MG Oral Tablet [Multaq] 400 mg=1 tab, PO, BID, # 60 tab, 3 Refill(s) Active 05/05/2018 [facility] atorvastatin 40 mg oral tablet 40 mg=1 tab, PO, Bedtime, # 90 tab, 1 Refill(s) Active 05/05/2018 [facility] apixaban 5 mg oral tablet 5 mg, PO, Q12H, 0 Refill(s) Active 05/05/2018 [facility] 200 ACTUAT Albuterol 0.09 MG/ACTUAT Metered Dose Inhaler [ProAir HFA] 2 puff, INHALER, Q4H, PRN for wheezing, # 8.5 gm, 0 Refill(s) Active 05/05/2018 [facility] amLODIPine 5 mg oral tablet 5 mg=1 tab, PO, Daily, # 30 tab, 0 Refill(s) Active 05/05/2018 [facility] metoprolol 25 mg oral tablet, extended release 25 mg=1 tab, PO, BID, # 90 tab, 0 Refill(s) Active 05/05/2018 [facility] montelukast 5 mg oral tablet, chewable 5 mg=1 tab, CHEW, Bedtime, # 30 tab, 0 Refill(s) Active 05/05/2018 [facility] ALPRAZOLam 0.5 mg oral tablet, disintegrating 0.5 mg=1 tab, PO, BID, PRN for anxiety, # 40 tab, 0 Refill(s) No Longer Active 04/12/2018 [facility] tizanidine 2 mg oral tablet 2 mg=1 tab, PO, BID, PRN for muscle spasms, # 60 tab, 0 Refill(s), Pharmacy: [facility] [id number] No Longer Active 02/10/2018 [facility] pravastatin 40 mg oral tablet 40 mg=1 tab, PO, Bedtime, # 90 tab, 1 Refill(s), Pharmacy: [facility] [id number] Active 01/17/2018 [facility] ALPRAZOLam 0.5 mg oral tablet, disintegrating 0.5 mg=1 tab, PO, BID, PRN for anxiety, # 40 tab, 0 Refill(s) No Longer Active 01/12/2018 [facility] tiotropium 0.018 MG/ACTUAT Inhalant Powder [Spiriva] 18 microgram=1 cap, INHALATION, Daily, # 90 cap, 2 Refill(s), Pharmacy: [facility] [id number] Active 01/09/2018 [facility] tiotropium 0.018 MG/ACTUAT Inhalant Powder [Spiriva] 18 microgram=1 cap, INHALATION, Daily, X 90 day, # 90 cap, 2 Refill(s), Pharmacy: [facility] [id number] Inactive 01/09/2018 [facility] ALPRAZOLam 0.5 mg oral tablet, disintegrating 0.5 mg=1 tab, PO, BID, PRN for anxiety, # 40 tab, 0 Refill(s) Active 12/11/2017 [facility] Metoprolol Tartrate 50 mg oral tablet 50 mg=1 tab, PO, BID, # 180 tab, 2 Refill(s), Pharmacy: [facility] [id number] Active 10/30/2017 [facility] Furosemide 20 MG Oral Tablet 20 mg=1 tab, PO, Daily, # 90 tab, 1 Refill(s), Pharmacy: [facility] [id number] Active 10/06/2017 [facility] Nystatin 100 UNT/MG Topical Powder 1 appl, TOP, TID, # 60 gm, 1 Refill(s), Pharmacy: [facility] [id number] Active 10/06/2017 [facility] Hydrocortisone 25 MG/ML Topical Lotion 1 appl, TOP, BID, apply in a thin film to face and rub in gently and completely, # 120 mL, 1 Refill(s), Pharmacy: [facility] [id number] Active 10/06/2017 [facility] Hydrocortisone 25 MG/ML Topical Lotion 1 appl, TOP, BID, apply in a thin film to face and rub in gently and completely, # 60 ml, 0 Refill(s) Inactive 10/06/2017 [facility] Nystatin 100 UNT/MG Topical Powder 1 appl, TOP, TID, # 60 gm, 0 Refill(s) Active 10/06/2017 [facility] clopidogrel 75 mg oral tablet 75 mg=1 tab, PO, Daily, # 90 tab, 1 Refill(s), Pharmacy: [facility] [id number] Active 09/30/2017 [facility] Furosemide 20 MG Oral Tablet 20 mg=1 tab, PO, Daily, # 90 tab, 1 Refill(s), Pharmacy: [facility] [id number] Active 09/30/2017 [facility] Furosemide 20 MG Oral Tablet 20 mg, 1 tab, Route: PO, Drug form: TAB, Breakfast, Dosing Weight 73.545, kg, Start date: 06/03/17 10:50:00 FLARING MACHINE OPERATOR, Duration: 30 day, Stop date: 07/03/17 8:00:00 CSTNotes: (Same as: Lasix) May cause GI upset. Give with food or milk. No Longer Active 06/03/2017 [facility] tiotropium 0.018 MG/ACTUAT Inhalant Powder [Spiriva] 18 microgram, 1 inhalation, Route: INHALATION, Drug form: CAP, RDaily, Dosing Weight 73.545, kg, Start date: 06/03/17 8:00:00 FLARING MACHINE OPERATOR, Duration: 30 day, Stop date: 07/02/17 8:00:00 CSTNotes: (Same As: Spiriva). No Longer Active 06/03/2017 [facility] Pravastatin 40 mg, 2 tab, Route: PO, Drug form: TAB, Bedtime, Dosing Weight 73.545, kg, Start date: 06/02/17 21:00:00 FLARING MACHINE OPERATOR, Duration: 30 day, Stop date: 07/01/17 21:00:00 CSTNotes: (Same as: Pravachol) Inactive 06/03/2017 [facility] remove patch Route: MISC, Bedtime, Drug form: ERFILM, Start date: 06/02/17 21:00:00 FLARING MACHINE OPERATOR, Duration: 30 day, Stop date: 07/01/17 21:00:00 CSTNotes: Remove patch 12 hours after application each day. Inactive 06/03/2017 [facility] Ranitidine 150 MG Oral Tablet 150 mg, 1 tab, Route: PO, Drug form: TAB, BID, Dosing Weight 73.545, kg, Start date: 06/02/17 17:00:00 FLARING MACHINE OPERATOR, Duration: 30 day, Stop date: 07/02/17 9:00:00 FLARING MACHINE OPERATOR Inactive 06/02/2017 [facility] pantoprazole 40 mg, 1 tab, Route: PO, Drug form: ECTAB, BID-Before Meals, Dosing Weight 73.545, kg, Start date: 06/02/17 16:30:00 FLARING MACHINE OPERATOR, Duration: 30 day, Stop date: 07/02/17 7:30:00 CSTNotes: Tablet should not be chewed or crushed. (Same as: Protonix) Inactive 06/02/2017 [facility] 120 ACTUAT Albuterol 0.1 MG/ACTUAT / Ipratropium [place] 0.02 MG/ACTUAT Metered Dose Inhaler [Combivent 20/100] 1 puff, Route: INHALATION, Drug Form: AERO, Dosing Weight 73.545, kg, RQID, Start date: 06/02/17 11:00:00 FLARING MACHINE OPERATOR, Duration: 30 day, Stop date: 07/02/17 7:00:00 CSTNotes: Same as: Combivent Respimat WASTE: Aerosol - Return to Pharmacy Inactive 06/02/2017 [facility] Lidocaine 0.05 MG/MG Transdermal Patch 1 patch, Route: TOP, Daily, Drug form: FILM, Start date: 06/02/17 10:53:00 FLARING MACHINE OPERATOR, Duration: 30 day, Stop date: 07/02/17 9:00:00 CSTNotes: Apply only once for up to 12 hours in a 24-hour period (12 hours on and 12 hours off). (Same as: Lidoderm) "Remove old patch before application of new patch" Inactive 06/02/2017 [facility] famotidine 20 mg, 1 tab, Route: PO, Drug form: TAB, Q12H, Start date: 06/02/17 10:52:00 FLARING MACHINE OPERATOR, Duration: 30 day, Stop date: 07/02/17 9:00:00 CSTNotes: (Same as: Pepcid) Inactive 06/02/2017 [facility] Lopressor 50 mg, 1 tab, Route: PO, Drug form: TAB, Q12H, Dosing Weight 73.545, kg, Start date: 06/02/17 10:50:00 FLARING MACHINE OPERATOR, Duration: 30 day, Stop date: 07/02/17 9:00:00 CSTNotes: (Same as: Lopressor) Inactive 06/02/2017 [facility] Cymbalta 60 mg, 2 cap, Route: PO, Drug form: DRC, BID, Dosing Weight 73.545, kg, Start date: 06/02/17 10:49:00 FLARING MACHINE OPERATOR, Duration: 30 day, Stop date: 07/02/17 9:00:00 CSTNotes: (Same as: Cymbalta) (Do Not Crush) Inactive 06/02/2017 [facility] clopidogrel 75 mg, 1 tab, Route: PO, Drug form: TAB, Daily, Dosing Weight 73.545, kg, Start date: 06/02/17 10:49:00 FLARING MACHINE OPERATOR, Duration: 30 day, Stop date: 07/02/17 9:00:00 CSTNotes: (Same As: Plavix) Inactive 06/02/2017 [facility] Rocephin 1 gm, Route: IVPB, ONCE, Dosing Weight 73.545, kg, Start date: 06/02/17 10:31:00 FLARING MACHINE OPERATOR, Stop date: 06/02/17 10:31:00 FLARING MACHINE OPERATOR, ABX Indication: PneumoniaNotes: (Same As: Rocephin). Use with 100 mL NS and infuse over 30 min MEDICATION WASTE Product Size: 1000 mg Product Wasted: ___ mg Inactive 06/02/2017 [facility] Cefuroxime 250 MG Oral Tablet [Ceftin] 250 mg=1 tab, PO, BID, X 10 day, # 20 tab, 0 Refill(s) Active 06/02/2017 [facility] aspirin 81 mg tablet, enteric coated 81 mg, 1 tab, Route: PO, Drug form: ECTAB, Daily, Dosing Weight 73.545, kg, Start date: 06/02/17 10:20:00 FLARING MACHINE OPERATOR, Duration: 30 day, Stop date: 07/02/17 9:00:00 CSTNotes: Do not crush or chew. (Same As: Ecotrin) Inactive 06/02/2017 [facility] Docusate Sodium 100 MG Oral Capsule 100 mg, 1 cap, Route: PO, Drug form: CAP, Daily, Dosing Weight 73.545, kg, PRN Constipation, Start date: 06/02/17 9:38:00 FLARING MACHINE OPERATOR, Duration: 30 day, Stop date: 07/02/17 9:37:00 CSTNotes: (Same as: Colace) (Do Not Crush) Inactive 06/02/2017 [facility] tizanidine 2 mg, 0.5 tab, Route: PO, Drug form: TAB, Q8H, Dosing Weight 73.545, kg, PRN Spasm, Start date: 06/02/17 9:38:00 FLARING MACHINE OPERATOR, Duration: 30 day, Stop date: 07/02/17 9:37:00 FLARING MACHINE OPERATOR, ..Notes: (Same As: Zanaflex) Inactive 06/02/2017 [facility] Acetaminophen 325 MG / Hydrocodone Bitartrate 10 MG Oral Tablet 1 tab, Route: PO, Drug Form: TAB, Dosing Weight 73.545, kg, Q6H, PRN Pain Score 4-6, Start date: 06/02/17 9:38:00 FLARING MACHINE OPERATOR, Duration: 30 day, Stop date: 07/02/17 9:37:00 CSTNotes: Do not exceed 4gm/day of acetaminophen. (Same as: [place] 325/10) Inactive 06/02/2017 [facility] Streptococcus pneumoniae serotype 1 capsular antigen diphtheria [id number] protein conjugate vaccine / Streptococcus pneumoniae serotype 14 capsular antigen diphtheria [id number] protein conjugate vaccine / Streptococcus pneumoniae serotype 18C capsular antigen d 0.5 mL, Route: IM, Drug Form: INJ, Daily, Start date: 06/02/17 9:00:00 FLARING MACHINE OPERATOR, Duration: 1 doses or times, Stop date: 06/02/17 9:00:00 CSTNotes: Shake well prior to use (Same as: Prevnar 13) Inactive 06/02/2017 [facility] Enoxaparin 40 mg, 0.4 mL, Route: SUB-Q, Drug form: INJ, [id number], Dosing Weight 73.545, kg, Start date: 06/01/17 21:00:00 FLARING MACHINE OPERATOR, Duration: 30 day, Stop date: 06/30/17 21:00:00 CSTNotes: (Same as: Lovenox) No Longer Active 06/02/2017 [facility] Docusate Sodium 100 MG Oral Capsule 100 mg=1 cap, PO, Daily, PRN Constipation, # 20 cap, 0 Refill(s) Active 06/02/2017 [facility] Saline Flush 0.9% 5 ml, Route: IVP, Drug Form: INJ, Dosing Weight 73.545, kg, PRN, PRN Line Flush, Start date: 06/01/17 20:01:00 FLARING MACHINE OPERATOR, Duration: 30 day, Stop date: 07/01/17 20:00:00 CSTNotes: (Same as: BD Posiflush) No Longer Active 06/02/2017 [facility] Potassium Chloride 40 mEq, 2 tab, Route: PO, Drug form: ERTAB, Q4H, Dosing Weight 73.545, kg, Priority: NOW, Start date: 06/01/17 18:07:00 FLARING MACHINE OPERATOR, Duration: 2 doses or times, Stop date: 06/01/17 22:00:00 CSTNotes: (Same as: K-Dur 20) "Do Not Crush" With food and full glass of water Inactive 06/02/2017 [facility] Azithromycin 500 mg, Route: IVPB, ONCE, Dosing Weight 79.545, kg, Priority: STAT, Start date: 06/01/17 13:06:00 FLARING MACHINE OPERATOR, Stop date: 06/01/17 13:06:00 FLARING MACHINE OPERATOR, ABX Indication: PneumoniaNotes: (Same As: Zithromax IV) Inactive 06/01/2017 [facility] Aspirin 324 mg, 4 tab, Route: CHEW, Drug form: CHEWTAB, ONCE, Dosing Weight 79.545, kg, Priority: STAT, Start date: 06/01/17 13:05:00 FLARING MACHINE OPERATOR, Stop date: 06/01/17 13:05:00 CSTNotes: Take with food. Inactive 06/01/2017 [facility] Saline Flush 0.9% 10 mL, Route: IVP, Drug Form: INJ, Dosing Weight 79.545, kg, PRN, PRN Line Flush, Start date: 06/01/17 10:05:00 FLARING MACHINE OPERATOR, Duration: 30 day, Stop date: 07/01/17 10:04:00 CSTNotes: (Same as: BD Posiflush) No Longer Active 06/01/2017 [facility] NS (Bolus) IV 500 mL, 500 ml/hr, Infuse Over: 1 hr, Route: IV, ONCE, Priority: STAT, Dosing Weight 79.545 kg, Start date: 06/01/17 10:01:00 FLARING MACHINE OPERATOR, Stop date: 06/01/17 10:01:00 FLARING MACHINE OPERATOR Inactive 06/01/2017 [facility] Zofran 4 mg, Route: IVP, Drug form: INJ, ONCE, Dosing Weight 79.545, kg, Priority: STAT, Start date: 06/01/17 10:01:00 FLARING MACHINE OPERATOR, Stop date: 06/01/17 10:01:00 FLARING MACHINE OPERATOR Inactive 06/01/2017 [facility] Morphine 4 mg, 2 mL, Route: IVP, Drug form: SOLN, ONCE, Dosing Weight 79.545, kg, Priority: STAT, Start date: 06/01/17 10:01:00 FLARING MACHINE OPERATOR, Stop date: 06/01/17 10:01:00 FLARING MACHINE OPERATOR Inactive 06/01/2017 [facility] Magnesium Sulfate 2 gm, Route: IV, ONCE, Dosing Weight 79.545, kg, Priority: STAT, Start date: 06/01/17 10:01:00 FLARING MACHINE OPERATOR, Stop date: 06/01/17 10:01:00 FLARING MACHINE OPERATOR Inactive 06/01/2017 [facility] Solu-Medrol 125 mg, Route: IVP, ONCE, Dosing Weight 79.545, kg, Priority: STAT, Start date: 06/01/17 10:00:00 FLARING MACHINE OPERATOR, Stop date: 06/01/17 10:00:00 FLARING MACHINE OPERATOR Inactive 06/01/2017 [facility] Albuterol 0.833 MG/ML / Ipratropium [place] 0.167 MG/ML Inhalant Solution [DuoNeb] 9 mL, Route: NEB, Dosing Weight 79.545, kg, ONCE, STAT, Start date: 06/01/17 10:00:00 FLARING MACHINE OPERATOR, Stop date: 06/01/17 10:00:00 FLARING MACHINE OPERATOR Inactive 06/01/2017 [facility] metoprolol tartrate 50 mg oral tablet 50 mg=1 tab, PO, Q12H, 0 Refill(s) Active 12/04/2016 [facility] clopidogrel 75 mg oral tablet 75 mg=1 tab, PO, Daily, 0 Refill(s) Active 12/04/2016 [facility] Kayexalate 30 gm, 120 mL, Route: PEG, Drug form: SUSP, ONCE, Dosing Weight 66.051, kg, Start date: 11/30/16 7:22:00 CDT, Stop date: 11/30/16 7:22:00 CDTNotes: (sodium polystyrene sulfonate 15 gm/60 ml RUSH) Shake well before use. (Same as: Kayexalate, SPS) Inactive 11/30/2016 [facility] Miralax 17 gm, 1 pkt, Route: PO, Drug form: PWDR, Daily, Dosing Weight 66.051, kg, Start date: 11/29/16 9:00:00 CDT, Duration: 30 day, Stop date: 12/28/16 9:00:00 CDTNotes: Dissolve in 8 oz of water or juice. (Same as: Miralax) Inactive 11/29/2016 [facility] Sodium Chloride 0.154 MEQ/ML Injectable Solution 250 mL, Rate: 50 ml/hr, Infuse over: 5 hr, Route: IV, Dosing Weight 66.051 kg, Total Volume: 250, Start date: 11/28/16 3:24:00 CDT, Duration: 30 day, Stop date: 12/28/16 3:23:00 CDT No Longer Active 11/28/2016 [facility] Miralax 17 gm, 1 pkt, Route: PEG, Drug form: PWDR, BID, Dosing Weight 66.051, kg, PRN Constipation, Start date: 11/27/16 19:26:00 CDT, Duration: 30 day, Stop date: 12/27/16 19:25:00 CDTNotes: Dissolve in 8 oz of water or juice. (Same as: Miralax) No Longer Active 11/28/2016 [facility] Lasix 40 mg, 4 mL, Route: IVP, Drug form: INJ, ONCE, Dosing Weight 66.051, kg, Start date: 11/27/16 19:09:00 CDT, Stop date: 11/27/16 19:09:00 CDTNotes: (Same as: Lasix) MEDICATION WASTE Product Size: 40 mg Product Wasted: ___ mg No Longer Active 11/28/2016 [facility] Potassium Chloride 1.33 MEQ/ML Oral Solution 40 mEq, 30 mL, Route: PO, Drug form: LIQ, ONCE, Dosing Weight 66.051, kg, Start date: 11/27/16 16:07:00 CDT, Stop date: 11/27/16 16:07:00 CDTNotes: (Same as: Potassium Chloride) Inactive 11/27/2016 [facility] Robitussin 200 mg, 10 mL, Route: PO, Drug Form: LIQ, Dosing Weight 66.051, kg, Q4H, PRN Cough, Start date: 11/26/16 22:54:00 CDT, Duration: 30 day, Stop date: 12/26/16 22:53:00 CDTNotes: (Same as: Robitussin) No Longer Active 11/27/2016 [facility] tizanidine 4 mg, 1 tab, Route: PO, Drug form: TAB, BID, Dosing Weight 66.051, kg, Start date: 11/25/16 17:00:00 CDT, Duration: 30 day, Stop date: 12/25/16 9:00:00 CDTNotes: (Same As: Zanaflex) No Longer Active 11/25/2016 [facility] Miralax 17 gm, 1 pkt, Route: PO, Drug form: PWDR, Daily, Dosing Weight 66.051, kg, PRN Constipation, Start date: 11/25/16 9:09:00 CDT, Duration: 30 day, Stop date: 12/25/16 9:08:00 CDTNotes: Dissolve in 8 oz of water or juice. (Same as: Miralax) No Longer Active 11/25/2016 [facility] Aspirin 81 MG Chewable Tablet 81 mg, 1 tab, Route: PO, Drug form: CHEWTAB, Daily, Dosing Weight 66.051, kg, Start date: 11/25/16 9:00:00 CDT, Duration: 30 day, Stop date: 12/24/16 9:00:00 CDTNotes: Take with food. No Longer Active 11/25/2016 [facility] Amlodipine 2.5 mg, 1 tab, Route: PO, Drug form: TAB, Daily, Dosing Weight 66.051, kg, Start date: 11/25/16 9:00:00 CDT, Duration: 30 day, Stop date: 12/24/16 9:00:00 CDTNotes: (Same as: Norvasc) Inactive 11/25/2016 [facility] Calcium Carbonate 500 MG Chewable Tablet 1,000 mg, 2 tab, Route: PO, Drug form: CHEWTAB, PRN, Dosing Weight 66.051, kg, PRN Abnormal Lab Result, FOR ICU USE ONLY, Start date: 11/25/16 9:00:00 CDT, Duration: 30 day, Stop date: 12/25/16 8:59:00 CDTNotes: (Same As: Tums) Calcium Carbonate 500 ah=247 mg elemental calcium Dose= mg calcium carbonate ( mg elemental calcium) No Longer Active 11/25/2016 [facility] sodium phosphate + D5W 240 mL 30 mmol, 10 mL, Route: IVPB, PRN, Dosing Weight 66.051, kg, PRN Abnormal Lab Result, Start date: 11/25/16 9:00:00 CDT, Duration: 30 day, Stop date: 12/25/16 8:59:00 CDT, FOR ICU USE ONLY No Longer Active 11/25/2016 [facility] sodium phosphate + D5W 245 mL 15 mmol, 5 mL, Route: IVPB, PRN, Dosing Weight 66.051, kg, PRN Abnormal Lab Result, Start date: 11/25/16 9:00:00 CDT, Duration: 30 day, Stop date: 12/25/16 8:59:00 CDT, FOR ICU USE ONLY No Longer Active 11/25/2016 [facility] Calcium Gluconate 1 gm, 10 mL, Route: IVPB, PRN, Dosing Weight 66.051, kg, PRN Abnormal Lab Result, Start date: 11/25/16 9:00:00 CDT, Duration: 30 day, Stop date: 12/25/16 8:59:00 CDT, FOR ICU USE ONLYNotes: WASTE: F/P - Sink; E - Municipal Trash Bin No Longer Active 11/25/2016 [facility] Magnesium Oxide 800 mg, 2 tab, Route: PO, Drug form: TAB, PRN, Dosing Weight 66.051, kg, PRN Abnormal Lab Result, FOR ICU USE ONLY, Start date: 11/25/16 9:00:00 CDT, Duration: 30 day, Stop date: 12/25/16 8:59:00 CDT Notes: (Same as: Mag-Ox 400) Magnesium oxide [id number] elemental magnesium Dose=____mg magnesium oxide (___mg elemental magnesium) No Longer Active 11/25/2016 [facility] Magnesium Sulfate 2 gm, 50 mL, Route: IVPB, Drug form: INJ, PRN, Dosing Weight 66.051, kg, PRN Abnormal Lab Result, Start date: 11/25/16 9:00:00 CDT, Duration: 30 day, Stop date: 12/25/16 8:59:00 CDT, FOR ICU USE ONLYNotes: WASTE: F/P - Sink; E - Municipal Trash Bin No Longer Active 11/25/2016 [facility] potassium phosphate-sodium phosphate 250 mg-280 mg-160 [...] water and stir. No Longer Active 11/25/2016 [facility] potassium phosphate + sodium chloride 0.9% INJ 235 mL 45 mmol, 15 mL, Route: IVPB, PRN, Dosing Weight 66.051, kg, PRN Abnormal Lab Result, Start date: 11/25/16 9:00:00 CDT, Duration: 30 day, Stop date: 12/25/16 8:59:00 CDT, FOR ICU USE ONLYNotes: (Same as: K Phosphate.) 1 mMol phoshate has 1.47 mEq potassium Infuse over 4 hours No Longer Active 11/25/2016 [facility] potassium phosphate + sodium chloride 0.9% INJ 240 mL 30 mmol, 10 mL, Route: IVPB, PRN, Dosing Weight 66.051, kg, PRN Abnormal Lab Result, Start date: 11/25/16 9:00:00 CDT, Duration: 30 day, Stop date: 12/25/16 8:59:00 CDT, FOR ICU USE ONLYNotes: (Same as: K Phosphate.) 1 mMol phoshate has 1.47 mEq potassium Infuse over 4 hours No Longer Active 11/25/2016 [facility] potassium phosphate + sodium chloride 0.9% INJ 245 mL 15 mmol, 5 mL, Route: IVPB, PRN, Dosing Weight 66.051, kg, PRN Abnormal Lab Result, Start date: 11/25/16 9:00:00 CDT, Duration: 30 day, Stop date: 12/25/16 8:59:00 CDT, FOR ICU USE ONLYNotes: (Same as: K Phosphate.) 1 mMol phoshate has 1.47 mEq potassium Infuse over 4 hours No Longer Active 11/25/2016 [facility] sodium phosphate + D5W 235 mL 45 mmol, 15 mL, Route: IVPB, PRN, Dosing Weight 66.051, kg, PRN Abnormal Lab Result, Start date: 11/25/16 9:00:00 CDT, Duration: 30 day, Stop date: 12/25/16 8:59:00 CDT, FOR ICU USE ONLY No Longer Active 11/25/2016 [facility] potassium chloride 20 mEq, 15 mL, Route: NJ, Drug form: LIQ, PRN, Dosing Weight 66.051, kg, PRN Abnormal Lab Result, Start date: 11/25/16 9:00:00 CDT, Duration: 30 day, Stop date: 12/25/16 8:59:00 CDT, FOR ICU USE ONLYNotes: (Same as: Potassium Chloride) No Longer Active 11/25/2016 [facility] Amlodipine 10 mg, Route: PO, Drug form: TAB, Daily, Dosing Weight 66.051, kg, Priority: NOW, Start date: 11/24/16 12:39:00 CDT, Duration: 30 day, Stop date: 12/24/16 9:00:00 CDT Inactive 11/24/2016 [facility] metoprolol tartrate 50 mg, 1 tab, Route: PO, Drug form: TAB, Q12H, Dosing Weight 66.051, kg, Priority: NOW, Start date: 11/24/16 12:39:00 CDT, Stop date: 12/24/16 9:00:00 CDTNotes: (Same as: Lopressor) No Longer Active 11/24/2016 [facility] esmolol 2,500 mg, 250 mL, Rate: Titrate, Start Dose: 50 microgram/kg/min, Titration: 50 microgram/kg/min every 15 minutes, Goal(s): Maintain SBP between 100-150 mmHg, Max Dose: 300 microgram/kg/min, Route: IV, Dosing Weight 66.051 kg, Total Volume: 250, Start...Notes: (Same as: Brevibloc) 10 mg/ml conc. No Longer Active 11/23/2016 [facility] Lasix 20 mg, 2 mL, Route: IVP, Drug form: INJ, ONCE, Dosing Weight 66.051, kg, Start date: 11/23/16 15:56:00 CDT, Stop date: 11/23/16 15:56:00 CDTNotes: (Same as: Lasix) Inactive 11/23/2016 [facility] Sodium Chloride 0.154 MEQ/ML Injectable Solution 1,000 mL, Rate: 25 ml/hr, Infuse over: 40 hr, Route: IV, Dosing Weight 66.051 kg, Total Volume: 1,000, Start date: 11/23/16 11:22:00 CDT, Duration: 30 day, Stop date: 12/23/16 11:21:00 CDT Inactive 11/23/2016 [facility] Ancef 2 gm, 100 mL, Route: IVPB, Drug form: INJ, ONCE, Dosing Weight 66.051, kg, Start date: 11/23/16 9:19:00 CDT, Duration: 1 doses or times, Stop date: 11/23/16 9:19:00 CDT, [employer] Surgical Prophylaxis Only; For patients Notes: Same as: Ancef Inactive 11/23/2016 [facility] Metoprolol 5 mg, 5 mL, Route: IV, Drug form: INJ, ONCE, Dosing Weight 66.051, kg, Priority: NOW, Start date: 11/22/16 8:01:00 CDT, Stop date: 11/22/16 8:01:00 CDTNotes: (Same as: Lopressor) Push over 2 minutes Inactive 11/22/2016 [facility] potassium chloride 10 mEq, 100 mL, Route: IVPB, Drug form: INJ, Q1H, Start date: 11/21/16 22:00:00 CDT, Duration: 3 doses or times, Stop date: 11/22/16 0:00:00 CDTNotes: Infuse at a rate of 10 mEq/hr. (Same as: KCL) No Longer Active 11/22/2016 [facility] aspirin 300 mg rectal suppository 300 mg, 1 supp, Route: CO, Drug form: SUPP, Daily, Dosing Weight 66.051, kg, Priority: NOW, Start date: 11/21/16 16:48:00 CDT, Duration: 30 day, Stop date: 12/21/16 9:00:00 CDTNotes: Refrigerate. No Longer Active 11/21/2016 [facility] Versed 1 mg, Route: IVP, ONCE, Dosing Weight 66.051, kg, PRN Other -See Comment, Start date: 11/21/16 16:21:00 CDT Inactive 11/21/2016 [facility] Versed 1 mg, Route: IV, ONCE, Dosing Weight 66.051, kg, Priority: STAT, Start date: 11/21/16 14:46:00 CDT, Stop date: 11/21/16 14:46:00 CDT Inactive 11/21/2016 [facility] Versed 1 mg, Route: IV, ONCE, Dosing Weight 66.051, kg, Priority: STAT, Start date: 11/21/16 14:32:00 CDT, Stop date: 11/21/16 14:32:00 CDT Inactive 11/21/2016 [facility] Sodium Chloride 0.154 MEQ/ML Injectable Solution 2,000 mL, Rate: 100 ml/hr, Infuse over: 20 hr, Route: IV, Dosing Weight 66.051 kg, Total Volume: 2,000, Start date: 11/21/16 14:21:00 CDT, Duration: 1 doses or times, Stop date: 11/22/16 14:09:00 CDT No Longer Active 11/21/2016 [facility] potassium chloride 10 mEq, 100 mL, Route: IVPB, Drug form: INJ, Q1H, Start date: 11/21/16 14:00:00 CDT, Duration: 4 doses or times, Stop date: 11/21/16 17:00:00 CDTNotes: Infuse at a rate of 10 mEq/hr. (Same as: KCL) Inactive 11/21/2016 [facility] Hydralazine 10 mg, 0.5 mL, Route: IV, Drug form: INJ, Q6H, Dosing Weight 66.051, kg, Priority: NOW, Start date: 11/21/16 12:20:00 CDT, Duration: 30 day, Stop date: 12/21/16 12:00:00 CDTNotes: (Same as: Apresoline) Push over 5 minutes No Longer Active 11/21/2016 [facility] Metoprolol 5 mg, 5 mL, Route: IVP, Drug form: INJ, Q6H, Dosing Weight 66.051, kg, Priority: NOW, Start date: 11/21/16 12:19:00 CDT, Stop date: 12/21/16 12:00:00 CDTNotes: (Same as: Lopressor) Push over 2 minutes No Longer Active 11/21/2016 [facility] Aspirin 300 MG Rectal Suppository 300 mg, 1 supp, Route: CO, Drug form: SUPP, Daily, Dosing Weight 66.051, kg, Priority: NOW, Start date: 11/21/16 12:18:00 CDT, Duration: 30 day, Stop date: 12/21/16 9:00:00 CDTNotes: Refrigerate. Inactive 11/21/2016 [facility] potassium chloride 40 mEq, 2 tab, Route: PO, Drug form: ERTAB, Q4H, Dosing Weight 66.051, kg, Priority: NOW, Start date: 11/20/16 10:02:00 CDT, Duration: 2 doses or times, Stop date: 11/20/16 14:00:00 CDTNotes: (Same as: K-Dur 20) "Do Not Crush" With food and full glass of water Inactive 11/20/2016 [facility] Amlodipine 2.5 mg, 1 tab, Route: PO, Drug form: TAB, Daily, Dosing Weight 66.051, kg, Start date: 11/20/16 9:00:00 CDT, Duration: 30 day, Stop date: 12/19/16 9:00:00 CDTNotes: (Same as: Norvasc) No Longer Active 11/20/2016 [facility] Ativan 1 mg, 0.5 mL, Route: IM, Drug form: INJ, ONCE, Dosing Weight 66.051, kg, Priority: STAT, Start date: 11/18/16 23:26:00 CDT, Stop date: 11/18/16 23:26:00 CDTNotes: (Same as: Ativan) Inactive 11/19/2016 [facility] heparin 5,000 unit, 1 mL, Route: SUB-Q, Drug form: INJ, Q12H, Dosing Weight 66.051, kg, Start date: 11/17/16 21:00:00 CDT, Duration: 30 day, Stop date: 12/17/16 9:00:00 CDTNotes: porcine heparin No Longer Active 11/18/2016 [facility] Fentanyl 50 microgram, 1 mL, Route: IVP, Drug form: INJ, ONCE, Dosing Weight 66.051, kg, Start date: 11/17/16 15:13:00 CDT, Stop date: 11/17/16 15:13:00 CDTNotes: (Same as: Sublimaze) Preservative free. Inactive 11/17/2016 [facility] labetalol (ANES) Route: IV, Drug form: INJ, ONCE, Stop date: 11/17/16 14:23:00 CDT Inactive 11/17/2016 [facility] dexamethasone (ANES) Route: IV, Drug form: INJ, ONCE, Stop date: 11/17/16 14:08:00 CDT Inactive 11/17/2016 [facility] ondansetron (ANES) Route: IV, Drug form: INJ, ONCE, Stop date: 11/17/16 14:08:00 CDT Inactive 11/17/2016 [facility] neostigmine (ANES) Route: IV, Drug form: INJ, ONCE, Stop date: 11/17/16 14:08:00 CDT Inactive 11/17/2016 [facility] glycopyrrolate (ANES) Route: IV, Drug form: INJ, ONCE, Stop date: 11/17/16 14:08:00 CDT Inactive 11/17/2016 [facility] Hydromorphone 0.75 mg, 0.75 mL, Route: IV, Drug form: INJ, Q3H, Dosing Weight 66.051, kg, PRN Pain Score 7-10, Start date: 11/17/16 13:56:00 CDT, Stop date: 12/17/16 13:55:00 CDT No Longer Active 11/17/2016 [facility] sodium chloride 0.9% 1000 ml INJ 1,000 mL 1,000 mL, Rate: 75 ml/hr, Infuse over: 13.3 hr, Route: IV, Dosing Weight 66.051 kg, Total Volume: 1,000, Start date: 11/17/16 13:56:00 CDT, Stop date: 12/17/16 13:55:00 CDT No Longer Active 11/17/2016 [facility] Acetaminophen 325 MG / Hydrocodone Bitartrate 10 MG Oral Tablet 2 tab, Route: PO, Drug Form: TAB, Dosing Weight 66.051, kg, Q4H, PRN Pain Score 7-10, Start date: 11/17/16 13:56:00 CDT, Duration: 30 day, Stop date: 12/17/16 13:55:00 CDTNotes: Do not exceed 4gm/day of acetaminophen. (Same as: [place] 325/10) No Longer Active 11/17/2016 [facility] Acetaminophen 325 MG / Hydrocodone Bitartrate 5 MG Oral Tablet 1 tab, Route: PO, Drug Form: TAB, Dosing Weight 66.051, kg, Q4H, PRN Pain Score 4-6, Start date: 11/17/16 13:56:00 CDT, Duration: 30 day, Stop date: 12/17/16 13:55:00 CDTNotes: (Same as: [place] 325/5) Do not exceed 4gm/day of acetaminophen. No Longer Active 11/17/2016 [facility] acetaminophen (ANES) (ANES) Route: IV, Drug form: INJ, Start date: 11/17/16 13:27:00 CDT, Stop date: 11/17/16 14:27:00 CDT Inactive 11/17/2016 [facility] protamine (ANES) (ANES) Route: IV, Drug form: INJ, Start date: 11/17/16 13:20:00 CDT, Stop date: 11/17/16 14:20:00 CDT Inactive 11/17/2016 [facility] heparin (ANES) Route: IV, Drug form: INJ, ONCE, Stop date: 11/17/16 12:55:00 CDT Inactive 11/17/2016 [facility] rocuronium (ANES) Route: IV, Drug form: INJ, ONCE, Stop date: 11/17/16 12:55:00 CDT Inactive 11/17/2016 [facility] norepinephrine (ANES) Route: IV, Drug form: INJ, ONCE, Stop date: 11/17/16 12:55:00 CDT Inactive 11/17/2016 [facility] metoclopramide (ANES) Route: IV, Drug form: INJ, ONCE, Stop date: 11/17/16 12:50:00 CDT Inactive 11/17/2016 [facility] fentaNYL (ANES) Route: IV, Drug form: INJ, ONCE, Stop date: 11/17/16 12:50:00 CDT Inactive 11/17/2016 [facility] propofol (ANES) Route: IV, Drug form: INJ, ONCE, Stop date: 11/17/16 12:50:00 CDT Inactive 11/17/2016 [facility] Amidate (ANES) Route: IV, Drug form: INJ, ONCE, Stop date: 11/17/16 12:50:00 CDT Inactive 11/17/2016 [facility] lidocaine (ANES) Route: IV, Drug form: INJ, ONCE, Stop date: 11/17/16 12:50:00 CDT Inactive 11/17/2016 [facility] ceFAZolin (ANES) (ANES) Route: IV, Drug form: INJ, Start date: 11/17/16 11:56:00 CDT, Stop date: 11/17/16 12:56:00 CDT Inactive 11/17/2016 [facility] sodium chloride 0.9% 1000 ml INJ (ANES) Route: IV, Total Volume: 1,000, Start date: 11/17/16 11:56:00 CDT, Stop date: 11/17/16 12:56:00 CDT Inactive 11/17/2016 [facility] LR 1000 mL INJ (ANES) Route: IV, Total Volume: 1,000, Start date: 11/17/16 11:32:00 CDT, Stop date: 11/17/16 12:32:00 CDT Inactive 11/17/2016 [facility] potassium chloride 40 mEq, 2 tab, Route: PO, Drug form: ERTAB, Q4Hnow, Dosing Weight 66.051, kg, Priority: NOW, Start date: 11/15/16 15:32:00 CDT, Duration: 2 doses or times, Stop date: 11/15/16 20:00:00 CDT Inactive 11/15/2016 [facility] potassium chloride 40 mEq, 2 tab, Route: PO, Drug form: ERTAB, ONCE, Dosing Weight 66.051, kg, Start date: 11/14/16 15:08:00 CDT, Stop date: 11/14/16 15:08:00 CDTNotes: (Same as: K-Dur 20) "Do Not Crush" With food and full glass of water Inactive 11/14/2016 [facility] Amoxicillin 875 MG / Clavulanate 125 MG Oral Tablet [Augmentin 875-mg] 1 tab, Route: PO, Drug Form: TAB, Dosing Weight 66.051, kg, [id number], Start date: 11/13/16 20:00:00 CDT, Duration: 30 day, Stop date: 12/13/16 8:00:00 CDTNotes: With food. (Same as: Augmentin 875) No Longer Active 11/14/2016 [facility] Alprazolam 0.25 MG Oral Tablet [Xanax] 0.25 mg, 1 tab, Route: PO, Drug form: TAB, Q6H, Dosing Weight 66.051, kg, PRN Anxiety, Start date: 11/13/16 11:49:00 CDT, Duration: 30 day, Stop date: 12/13/16 11:48:00 CDTNotes: With food or milk (Same as: Xanax) No Longer Active 11/13/2016 [facility] gabapentin 300 MG Oral Capsule 300 mg, 1 cap, Route: PO, Drug form: CAP, Q12H, Dosing Weight 66.051, kg, (CrCl 30 - 59 ml/min), Start date: 11/12/16 21:00:00 CDT, Duration: 30 day, Stop date: 12/12/16 9:00:00 CDTNotes: (Same as: Neurontin) No Longer Active 11/13/2016 [facility] sodium chloride 0.9% 1000 ml INJ 1,000 mL 1,000 mL, Rate: 100 ml/hr, Infuse over: 10 hr, Route: IV, Dosing Weight 65.909 kg, Total Volume: 1,000, Start date: 11/10/16 16:36:00 CDT, Duration: 30 day, Stop date: 12/10/16 16:35:00 CDT No Longer Active 11/10/2016 [facility] Zosyn 3.375 gm, Route: IVPB, ABXQ8H, Dosing Weight 65.909, kg, CrCl >=20 ml/min infuse over 4 hours, Start date: 11/10/16 15:00:00 CDT, Duration: 30 day, Stop date: 12/10/16 7:00:00 CDTNotes: (Same as: Zosyn) Dosing based on Piperacillin component MEDICATION WASTE Product Size: 3375 mg Product Wasted: ___ mg No Longer Active 11/10/2016 [facility] potassium chloride 40 mEq, 2 tab, Route: PO, Drug form: ERTAB, Q4Hnow, Dosing Weight 65.909, kg, Priority: NOW, Start date: 11/10/16 9:00:00 CDT, Duration: 2 doses or times, Stop date: 11/10/16 13:00:00 CDT Inactive 11/10/2016 [facility] Clonidine Hydrochloride 0.1 MG Oral Tablet 0.1 mg, 1 tab, Route: PO, Drug form: TAB, Q4H, Dosing Weight 65.909, kg, PRN Elevated BP, Start date: 11/09/16 11:39:00 CDT, Duration: 30 day, Stop date: 12/09/16 11:38:00 CDT, systolic BP > 170Notes: (Same As: Catapres) No Longer Active 11/09/2016 [facility] Plavix 75 mg, 1 tab, Route: PO, Drug form: TAB, Daily, Dosing Weight 65.909, kg, Start date: 11/09/16 9:00:00 CDT, Duration: 30 day, Stop date: 01/07/17 9:00:00 CDTNotes: (Same As: Plavix) No Longer Active 11/09/2016 [facility] Hydralazine 10 mg, 0.5 mL, Route: IV, Drug form: INJ, Q6H, Dosing Weight 65.909, kg, PRN Elevated BP, Start date: 11/07/16 13:43:00 CDT, Duration: 30 day, Stop date: 12/07/16 13:42:00 CDT, for SBP greater than 170m mhgNotes: (Same as: Apresoline) Push over 5 minutes No Longer Active 11/07/2016 [facility] Lidocaine 0.05 MG/MG Transdermal Patch 1 patch, Route: TOP, Daily, Drug form: FILM, Start date: 11/07/16 9:00:00 CDT, Duration: 30 day, Stop date: 01/05/17 9:00:00 CDT No Longer Active 11/07/2016 [facility] Clonidine Hydrochloride 0.1 MG Oral Tablet 0.1 mg, 1 tab, Route: PO, Drug form: TAB, Q4H, Dosing Weight 65.909, kg, PRN Elevated BP, Start date: 11/07/16 4:48:00 CDT, Duration: 30 day, Stop date: 12/07/16 4:47:00 CDT, SBP> 170Notes: (Same As: Catapres) Inactive 11/07/2016 [facility] Lidocaine 0.05 MG/MG Transdermal Patch 1 patch, Route: TOP, Daily, Drug form: FILM, Start date: 11/06/16 9:00:00 CDT, Duration: 30 day, Stop date: 12/05/16 9:00:00 CDT No Longer Active 11/06/2016 [facility] remove patch 1 patch, Route: TOP, Bedtime, Drug form: ERFILM, Start date: 11/05/16 21:00:00 CDT, Duration: 30 day, Stop date: 01/03/17 21:00:00 CDTNotes: Remove patch 12 hours after application each day. No Longer Active 11/06/2016 [facility] Pravastatin 40 mg, 2 tab, Route: PO, Drug form: TAB, Bedtime, Dosing Weight 65.909, kg, Start date: 11/05/16 21:00:00 CDT, Duration: 30 day, Stop date: 01/03/17 21:00:00 CDTNotes: (Same as: Pravachol) No Longer Active 11/06/2016 [facility] Acetaminophen 325 MG / Hydrocodone Bitartrate 5 MG Oral Tablet [[place] 5/325] 1 tab, Route: PO, Drug Form: TAB, Dosing Weight 65.909, kg, Q6H, PRN Pain Score 6-10, NOW, Start date: 11/05/16 20:33:00 CDT, Duration: 30 day, Stop date: 12/05/16 20:32:00 CDTNotes: (Same as: [place] 325/5) Do not exceed 4gm/day of acetaminophen. No Longer Active 11/06/2016 [facility] Ranitidine 150 MG Oral Tablet 150 mg, 1 tab, Route: PO, Drug form: TAB, BID, Dosing Weight 65.909, kg, Start date: 11/05/16 17:00:00 CDT, Duration: 30 day, Stop date: 12/05/16 9:00:00 CDT Inactive 11/05/2016 [facility] 120 ACTUAT Albuterol 0.1 MG/ACTUAT / Ipratropium [place] 0.02 MG/ACTUAT Metered Dose Inhaler [Combivent 20/100] 1 puff, Route: INHALATION, Drug Form: AERO, Dosing Weight 65.909, kg, QID, Start date: 11/05/16 13:00:00 CDT, Duration: 30 day, Stop date: 12/05/16 9:00:00 CDTNotes: Same as: Combivent Respimat WASTE: Aerosol - Return to Pharmacy No Longer Active 11/05/2016 [facility] famotidine 20 mg, 1 tab, Route: PO, Drug form: TAB, BID, Start date: 11/05/16 10:00:00 CDT, Duration: 30 day, Stop date: 01/04/17 9:00:00 CDTNotes: (Same as: Pepcid) No Longer Active 11/05/2016 [facility] tiotropium 0.018 MG/ACTUAT Inhalant Powder [Spiriva] 18 microgram, 1 inhalation, Route: INHALATION, Drug form: CAP, Daily, Dosing Weight 65.909, kg, Start date: 11/05/16 10:00:00 CDT, Duration: 30 day, Stop date: 01/04/17 9:00:00 CDTNotes: (Same As: Spiriva). No Longer Active 11/05/2016 [facility] Furosemide 20 MG Oral Tablet 20 mg, 1 tab, Route: PO, Drug form: TAB, Daily, Dosing Weight 65.909, kg, Start date: 11/05/16 10:00:00 CDT, Duration: 30 day, Stop date: 01/04/17 9:00:00 CDTNotes: (Same as: Lasix) May cause GI upset. Give with food or milk. No Longer Active 11/05/2016 [facility] Cymbalta 60 mg, 2 cap, Route: PO, Drug form: DRC, BID, Dosing Weight 65.909, kg, Start date: 11/05/16 10:00:00 CDT, Duration: 30 day, Stop date: 01/04/17 9:00:00 CDTNotes: (Same as: Cymbalta) (Do Not Crush) No Longer Active 11/05/2016 [facility] aspirin 81 mg tablet, enteric coated 81 mg, 1 tab, Route: PO, Drug form: ECTAB, Daily, Dosing Weight 65.909, kg, Start date: 11/05/16 10:00:00 CDT, Duration: 30 day, Stop date: 12/05/16 9:00:00 CDTNotes: Do not crush or chew. (Same As: Ecotrin) No Longer Active 11/05/2016 [facility] Lidocaine Hydrochloride 0.05 MG/MG Transdermal Patch [...] of new patch" No Longer Active 11/05/2016 [facility] Acetaminophen 650 mg, 2 tab, Route: PO, Drug form: TAB, Q4H, Dosing Weight 65.909, kg, PRN Pain 1-3/Temp > 100.4 F, Start date: 11/05/16 1:10:00 CDT, Duration: 30 day, Stop date: 01/04/17 1:09:00 CDTNotes: Do not exceed 4 gm/day. (Same as: Tylenol) No Longer Active 11/05/2016 [facility] Ondansetron 4 mg, 2 mL, Route: IVP, Drug form: INJ, Q6H, Dosing Weight 65.909, kg, PRN Nausea & Vomiting, Start date: 11/05/16 1:10:00 CDT, Duration: 30 day, Stop date: 01/04/17 1:09:00 CDTNotes: (Same as: Zofran) MEDICATION WASTE Product Size: 4 mg Product Wasted: ___ mg No Longer Active 11/05/2016 [facility] Sodium Chloride 0.154 MEQ/ML Injectable Solution 500 mL, 500 ml/hr, Infuse Over: 1 hr, Route: IV, ONCE, Priority: STAT, Dosing Weight 68.182 kg, Start date: 11/04/16 20:22:00 CDT, Duration: 1 doses or times, Stop date: 11/04/16 20:22:00 CDT Inactive 11/05/2016 [facility] aspirin 81 mg tablet, enteric coated 81 mg, 1 tab, Route: PO, Drug form: ECTAB, Daily, Dosing Weight 81.818, kg, Start date: 10/09/16 9:00:00 CDT, Duration: 30 day, Stop date: 11/07/16 9:00:00 CDTNotes: Do not crush or chew. (Same As: Ecotrin) Inactive 10/09/2016 [facility] tiotropium 0.018 MG/ACTUAT Inhalant Powder [Spiriva] 18 microgram, 1 inhalation, Route: INHALATION, Drug form: CAP, Daily, Dosing Weight 81.818, kg, Start date: 10/09/16 9:00:00 CDT, Duration: 30 day, Stop date: 11/07/16 9:00:00 CDTNotes: (Same As: Spiriva). Inactive 10/09/2016 [facility] Cialis 5 mg, Route: PO, Drug form: TAB, Daily, Dosing Weight 81.818, kg, Start date: 10/09/16 9:00:00 CDT, Duration: 30 day, Stop date: 11/07/16 9:00:00 CDT Inactive 10/09/2016 [facility] Furosemide 20 MG Oral Tablet 20 mg, 1 tab, Route: PO, Drug form: TAB, Daily, Dosing Weight 81.818, kg, Start date: 10/09/16 9:00:00 CDT, Duration: 30 day, Stop date: 11/07/16 9:00:00 CDTNotes: (Same as: Lasix) May cause GI upset. Give with food or milk. Inactive 10/09/2016 [facility] remove patch 1 patch, Route: TOP, Q24H, Drug form: ERFILM, Start date: 10/09/16 0:00:00 CDT, Duration: 30 day, Stop date: 11/07/16 0:00:00 CDT Inactive 10/09/2016 [facility] Pravastatin 40 mg, 2 tab, Route: PO, Drug form: TAB, Bedtime, Dosing Weight 81.818, kg, Start date: 10/08/16 21:00:00 CDT, Duration: 30 day, Stop date: 11/06/16 21:00:00 CDTNotes: (Same as: Pravachol) No Longer Active 10/09/2016 [facility] Cymbalta 60 mg, 2 cap, Route: PO, Drug form: DRC, BID, Dosing Weight 81.818, kg, Start date: 10/08/16 21:00:00 CDT, Duration: 30 day, Stop date: 11/07/16 9:00:00 CDTNotes: (Same as: Cymbalta) (Do Not Crush) No Longer Active 10/09/2016 [facility] famotidine 20 mg, 1 tab, Route: PO, Drug form: TAB, Q12H, Start date: 10/08/16 21:00:00 CDT, Duration: 30 day, Stop date: 11/07/16 9:00:00 CDTNotes: (Same as: Pepcid) No Longer Active 10/09/2016 [facility] Ranitidine 150 MG Oral Tablet 150 mg, 1 tab, Route: PO, Drug form: TAB, BID, Dosing Weight 81.818, kg, Start date: 10/08/16 17:00:00 CDT, Duration: 30 day, Stop date: 11/07/16 9:00:00 CDT Inactive 10/08/2016 [facility] 24 HR Niacin 500 MG Extended Release Tablet [Niaspan] 500 mg, 2 cap, Route: PO, Drug form: ERCAP, Dinner, Dosing Weight 81.818, kg, Start date: 10/08/16 17:00:00 CDT, Duration: 30 day, Stop date: 11/06/16 17:00:00 CDTNotes: With food. No Longer Active 10/08/2016 [facility] bioflavonoids 500 mg, Route: PO, Drug form: CAP, BID, Dosing Weight 81.818, kg, Start date: 10/08/16 17:00:00 CDT, Duration: 30 day, Stop date: 11/07/16 9:00:00 CDT No Longer Active 10/08/2016 [facility] 120 ACTUAT Albuterol 0.1 MG/ACTUAT / Ipratropium [place] 0.02 MG/ACTUAT Metered Dose Inhaler [Combivent 20/100] 1 puff, Route: INHALATION, Drug Form: AERO, Dosing Weight 81.818, kg, RQID, Start date: 10/08/16 15:00:00 CDT, Duration: 30 day, Stop date: 11/07/16 11:00:00 CDTNotes: Same as: Combivent Respimat WASTE: Aerosol - Return to Pharmacy No Longer Active 10/08/2016 [facility] *NURSE please bring home meds (2 meds) to Pharmacy for label *NURSE please bring home meds (2 meds) to Pharmacy for label, 1, Drug form: MISC, Route: MISC, TID, 10/08/16 15:00:00 CDT, Duration: 30 day, Stop date: 11/07/16 9:00:00 CDT No Longer Active 10/08/2016 [facility] Lidocaine 0.05 MG/MG Transdermal Patch 1 patch, Route: TOP, Q24H, Drug form: FILM, Start date: 10/08/16 12:00:00 CDT, Duration: 30 day, Stop date: 11/06/16 12:00:00 CDT No Longer Active 10/08/2016 [facility] potassium chloride 40 mEq, 2 tab, Route: PO, Drug form: ERTAB, Q4H, Dosing Weight 81.818, kg, Priority: NOW, Start date: 10/08/16 11:21:00 CDT, Duration: 2 doses or times, Stop date: 10/08/16 16:00:00 CDTNotes: (Same as: K-Dur 20) "Do Not Crush" With food and full glass of water Inactive 10/08/2016 [facility] K-Dur 20 40 mEq, 2 tab, Route: PO, Drug form: ERTAB, ONCE, Dosing Weight 81.818, kg, Start date: 10/08/16 6:44:00 CDT, Stop date: 10/08/16 6:44:00 CDTNotes: (Same as: K-Dur 20) "Do Not Crush" With food and full glass of water Inactive 10/08/2016 [facility] Enoxaparin 30 mg, 0.3 mL, Route: SUB-Q, Drug form: INJ, [id number], Dosing Weight 81.818, kg, Start date: 10/08/16 2:00:00 CDT, Duration: 30 day, Stop date: 11/06/16 14:00:00 CDTNotes: (Same as: Lovenox) No Longer Active 10/08/2016 [facility] Ondansetron 4 mg, 2 mL, Route: IVP, Drug form: INJ, Q6H, Dosing Weight 81.818, kg, PRN Nausea & Vomiting, Start date: 10/08/16 1:11:00 CDT, Duration: 30 day, Stop date: 11/07/16 1:10:00 CDTNotes: (Same as: Zofran) MEDICATION WASTE Product Size: 4 mg Product Wasted: ___ mg No Longer Active 10/08/2016 [facility] Saline Flush 0.9% 10 ml, Route: IVP, Drug Form: INJ, Dosing Weight 81.818, kg, PRN, PRN Line Flush, Start date: 10/08/16 1:11:00 CDT, Duration: 30 day, Stop date: 11/07/16 1:10:00 CDTNotes: (Same as: BD Posiflush) No Longer Active 10/08/2016 [facility] Sodium Chloride 0.0769 MEQ/ML Injectable Solution 1,000 mL, Rate: 75 ml/hr, Infuse over: 13.3 hr, Route: IV, Dosing Weight 81.818 kg, Total Volume: 1,000, Start date: 10/08/16 1:11:00 CDT, Duration: 30 day, Stop date: 11/07/16 1:10:00 CDT No Longer Active 10/08/2016 [facility] Clonidine 0.1 mg, Route: PO, Drug form: TAB, ONCE, Dosing Weight 81.818, kg, Start date: 10/07/16 23:22:00 CDT, Stop date: 10/07/16 23:22:00 CDT Inactive 10/08/2016 [facility] Naloxone 2 mg, Route: IVP, Drug form: INJ, ONCE, Dosing Weight 81.818, kg, Priority: STAT, Start date: 10/07/16 22:38:00 CDT, Stop date: 10/07/16 22:38:00 CDT Inactive 10/08/2016 [facility] Naloxone 4 mg, 4 mL, Route: IV, Drug form: INJ, ONCE, Dosing Weight 81.818, kg, Priority: STAT, Start date: 10/07/16 19:24:00 CDT, Stop date: 10/07/16 19:24:00 CDTNotes: (Same as: Narcan) MEDICATION WASTE Product Size: 2 mg Product Wasted: ___ mg Inactive 10/08/2016 [facility] Sodium Chloride 0.154 MEQ/ML Injectable Solution 1,000 mL, 1000 ml/hr, Infuse Over: 1 hr, Route: IV, 1,000, Drug form: INJ, ONCE, Priority: STAT, Dosing Weight 81.818 kg, Start date: 10/07/16 19:18:00 CDT, Duration: 1 doses or times, Stop date: 10/07/16 19:18:00 CDT Inactive 10/08/2016 [facility] Saline Flush 0.9% 10 mL, Route: IVP, Drug Form: INJ, Dosing Weight 81.818, kg, PRN, PRN Line Flush, Start date: 10/07/16 19:18:00 CDT, Duration: 30 day, Stop date: 11/06/16 19:17:00 CDTNotes: (Same as: BD Posiflush) No Longer Active 10/08/2016 [facility] Acetaminophen 325 MG / Hydrocodone Bitartrate 10 MG Oral Tablet 1 tab, Route: PO, Drug Form: TAB, Dosing Weight 81.818, kg, Q6H, PRN Pain Score 7-10, Start date: 09/16/16 9:50:00 CDT, Duration: 30 day, Stop date: 10/16/16 9:49:00 CDT, back painNotes: Do not exceed 4gm/day of acetaminophen. (Same as: [place] 325/10) Inactive 09/16/2016 [facility] tiotropium 0.018 MG/ACTUAT Inhalant Powder [Spiriva] 18 microgram, 1 inhalation, Route: INHALATION, Drug form: CAP, Daily, Dosing Weight 81.818, kg, Start date: 09/16/16 9:00:00 CDT, Duration: 30 day, Stop date: 10/15/16 9:00:00 CDTNotes: (Same As: Spiriva). Inactive 09/16/2016 [facility] Ranitidine 150 MG Oral Tablet 150 mg, 1 tab, Route: PO, Drug form: TAB, BID, Dosing Weight 81.818, kg, Start date: 09/16/16 9:00:00 CDT, Duration: 30 day, Stop date: 10/15/16 17:00:00 CDT No Longer Active 09/16/2016 [facility] Furosemide 20 MG Oral Tablet 20 mg, 1 tab, Route: PO, Drug form: TAB, Daily, Dosing Weight 81.818, kg, Start date: 09/16/16 9:00:00 CDT, Duration: 30 day, Stop date: 10/15/16 9:00:00 CDTNotes: (Same as: Lasix) May cause GI upset. Give with food or milk. Inactive 09/16/2016 [facility] Cymbalta 60 mg, 2 cap, Route: PO, Drug form: DRC, BID, Dosing Weight 81.818, kg, Start date: 09/16/16 9:00:00 CDT, Duration: 30 day, Stop date: 10/15/16 17:00:00 CDTNotes: (Same as: Cymbalta) (Do Not Crush) Inactive 09/16/2016 [facility] aspirin 81 mg tablet, enteric coated 81 mg, 1 tab, Route: PO, Drug form: ECTAB, Daily, Dosing Weight 81.818, kg, Start date: 09/16/16 9:00:00 CDT, Duration: 30 day, Stop date: 10/15/16 9:00:00 CDTNotes: Do not crush or chew. (Same As: Ecotrin) Inactive 09/16/2016 [facility] Pravastatin 40 mg, 2 tab, Route: PO, Drug form: TAB, Bedtime, Dosing Weight 81.818, kg, Start date: 09/15/16 21:00:00 CDT, Duration: 30 day, Stop date: 10/14/16 21:00:00 CDTNotes: (Same as: Pravachol) No Longer Active 09/16/2016 [facility] 120 ACTUAT Albuterol 0.1 MG/ACTUAT / Ipratropium [place] 0.02 MG/ACTUAT Metered Dose Inhaler [Combivent 20/100] 1 puff, Route: INHALATION, Drug Form: AERO, Dosing Weight 81.818, kg, QID, Start date: 09/15/16 21:00:00 CDT, Duration: 30 day, Stop date: 10/15/16 17:00:00 CDTNotes: Same as: Combivent Respimat WASTE: Aerosol - Return to Pharmacy No Longer Active 09/16/2016 [facility] famotidine 20 mg, 1 tab, Route: PO, Drug form: TAB, Q12H, Start date: 09/15/16 21:00:00 CDT, Duration: 30 day, Stop date: 10/15/16 9:00:00 CDTNotes: (Same as: Pepcid) No Longer Active 09/16/2016 [facility] Trazodone 25 mg, 0.5 tab, Route: PO, Drug form: TAB, Bedtime, Dosing Weight 81.818, kg, PRN Sleep, Start date: 09/15/16 20:03:00 CDT, Duration: 30 day, Stop date: 10/15/16 20:02:00 CDT, ..Notes: (Same As: Desyrel) No Longer Active 09/16/2016 [facility] Protonix 80 mg, Route: IVP, Drug form: INJ, ONCE, Dosing Weight 81.818, kg, Priority: STAT, Start date: 09/15/16 11:38:00 CDT, Stop date: 09/15/16 11:38:00 CDTNotes: For IV push reconstitute with 10 ml 0.9% sodi um chloride and push over 2 minutes. (Same as: Protonix) Inactive 09/15/2016 [facility] Sodium Chloride 0.154 MEQ/ML Injectable Solution 500 mL, 500 ml/hr, Infuse Over: 1 hr, Route: IV, 500, Drug form: INJ, ONCE, Priority: STAT, Dosing Weight 81.818 kg, Start date: 09/15/16 11:38:00 CDT, Duration: 1 doses or times, Stop date: 09/15/16 11:38:00 CDT Inactive 09/15/2016 [facility] Levetiracetam 500 MG Oral Tablet 500 mg=1 tab, PO, Q12H, # 12 tab, 0 Refill(s) Active 09/23/2015 [facility] Cymbalta 60 mg, 2 cap, Route: PO, Drug form: DRC, Daily, Dosing Weight 79, kg, Start date: 09/23/15 9:00:00, Duration: 30 day, Stop date: 10/22/15 9:00:00Notes: (Same as: Cymbalta) (Do Not Crush) Inactive 09/23/2015 [facility] Pepcid 20 mg, 1 tab, Route: PO, Drug form: TAB, Daily, Start date: 09/23/15 9:00:00, Duration: 30 day, Stop date: 10/22/15 9:00:00Notes: (Same as: Pepcid) Inactive 09/23/2015 [facility] Ranitidine 150 MG Oral Capsule 150 mg, 1 cap, Route: PO, Q12H, Dosing Weight 79, kg, Start date: 09/23/15 9:00:00, Duration: 30 day, Stop date: 10/22/15 21:00:00 No Longer Active 09/23/2015 [facility] Furosemide 20 MG Oral Tablet [Lasix] 20 mg, 1 tab, Route: PO, Drug form: TAB, Daily, Dosing Weight 79, kg, Start date: 09/23/15 9:00:00, Duration: 30 day, Stop date: 10/22/15 9:00:00Notes: (Same as: Lasix) May cause GI upset. Give with food or milk. Inactive 09/23/2015 [facility] heparin sodium, porcine 2500 UNT/ML Injectable Solution 5,000 unit, 1 mL, Route: SUB-Q, Drug form: INJ, Q8H, Dosing Weight 79, kg, Start date: 09/23/15 8:00:00, Duration: 30 day, Stop date: 10/23/15 0:00:00Notes: porcine heparin Inactive 09/23/2015 [facility] Alprazolam 0.5 MG Oral Tablet 0.5 mg, 1 tab, Route: PO, Drug form: TAB, TID, Dosing Weight 79, kg, PRN as needed for anxiety, Start date: 09/22/15 21:59:00, Duration: 30 day, Stop date: 10/22/15 21:58:00Notes: With food or milk (Same as: Xanax) No Longer Active 09/23/2015 [facility] cyclobenzaprine 10 mg, 1 tab, Route: PO, Drug form: TAB, Q8H, Dosing Weight 79, kg, PRN Spasm, Priority: NOW, Start date: 09/22/15 21:58:00, Duration: 30 day, Stop date: 10/22/15 21:57:00Notes: (Same As: Flexeril) No Longer Active 09/23/2015 [facility] tramadol hydrochloride 50 MG Oral Tablet 50 mg, 1 tab, Route: PO, Drug form: TAB, Q6H, Dosing Weight 79, kg, PRN Pain Score 1-3, Start date: 09/22/15 21:57:00, Duration: 30 day, Stop date: 10/22/15 21:56:00Notes: Not to exceed 400mg/day. (Same As: Ultram) No Longer Active 09/23/2015 [facility] Ranitidine 150 mg, 10 mL, Route: PO, Drug form: SYRP, Q12H, Dosing Weight 79, kg, Start date: 09/22/15 21:00:00, Duration: 30 day, Stop date: 10/22/15 9:00:00Notes: (Same as:Zantac) Non-Formulary Item Take before or with meals Inactive 09/23/2015 [facility] Acetaminophen 325 MG / Hydrocodone Bitartrate 10 MG Oral Tablet [[place] 10/325] 1 tab, Route: PO, Drug Form: TAB, Dosing Weight 79.545, kg, Q6H, PRN Pain Score 4-6, Start date: 09/22/15 19:22:00, Duration: 30 day, Stop date: 10/22/15 19:21:00Notes: Do not exceed 4gm/day of acetaminophen. (Same as: [place] 325/10) No Longer Active 09/23/2015 [facility] Ondansetron 4 mg, Route: IVP, Drug form: INJ, ONCE, Dosing Weight 79.545, kg, Start date: 09/22/15 13:40:00, Stop date: 09/22/15 13:40:00 Inactive 09/22/2015 [facility] Morphine 4 mg, Route: IVP, ONCE, Dosing Weight 79.545, kg, Start date: 09/22/15 13:40:00, Stop date: 09/22/15 13:40:00 Inactive 09/22/2015 [facility] Saline Flush 0.9% 10 ml, Route: IVP, Drug Form: INJ, Dosing Weight 79.545, kg, Q12H, Start date: 09/22/15 9:00:00, Duration: 30 day, Stop date: 10/21/15 21:00:00Notes: (Same as: BD Posiflush) No Longer Active 09/22/2015 [facility] sennosides, ALF 8.6 mg, 1 tab, Route: PO, Drug Form: TAB, Dosing Weight 79.545, kg, Q12H, Start date: 09/22/15 9:00:00, Duration: 30 day, Stop date: 10/21/15 21:00:00Notes: (Same as: Senokot) No Longer Active 09/22/2015 [facility] Docusate 100 mg, 1 cap, Route: PO, Drug form: CAP, Q12H, Dosing Weight 79.545, kg, Start date: 09/22/15 9:00:00, Duration: 30 day, Stop date: 10/21/15 21:00:00Notes: (Same as: Colace) (Do Not Crush) No Longer Active 09/22/2015 [facility] Levetiracetam 500 mg, 1 tab, Route: PO, Drug form: TAB, Q12H, Dosing Weight 79.545, kg, Start date: 09/22/15 9:00:00, Duration: 30 day, Stop date: 10/21/15 21:00:00Notes: (Same as:Keppra) No Longer Active 09/22/2015 [facility] Ofirmev 1,000 mg, Route: IV, Drug form: INJ, ONCE, Dosing Weight 79.545, kg, PRN Pain Score 1-3, for > or=50 kg, Start date: 09/22/15 8:30:00 Inactive 09/22/2015 [facility] Hydralazine 10 mg, 0.5 mL, Route: IVP, Drug form: INJ, Q4H, Dosing Weight 79.545, kg, PRN Hypertension, For SBP>150, Start date: 09/22/15 8:18:00, Duration: 30 day, Stop date: 10/22/15 8:17:00Notes: (Same as: Apresoline) Push over 5 minutes No Longer Active 09/22/2015 [facility] Labetalol 20 mg, 4 mL, Route: IVP, Drug form: INJ, Q15Min, Dosing Weight 79.545, kg, PRN Hypertension, please hold for heart rate less than 65, Start date: 09/22/15 8:17:00, Duration: 30 day, Stop date: 10/22/15 8:16:00 No Longer Active 09/22/2015 [facility] Saline Flush 0.9% 10 ml, Route: IVP, Drug Form: INJ, Dosing Weight 79.545, kg, PRN, PRN Line Flush, Start date: 09/22/15 1:46:00, Duration: 30 day, Stop date: 10/22/15 1:45:00Notes: (Same as: BD Posiflush) No Longer Active 09/22/2015 [facility] Ondansetron 4 mg, 2 mL, Route: IVP, Drug form: INJ, Q8H, Dosing Weight 79.545, kg, PRN Nausea & Vomiting, Start date: 09/22/15 1:46:00, Duration: 30 day, Stop date: 10/22/15 1:45:00Notes: (Same as: Zofran) MEDICATION WASTE Product Size: 4 mg Product Wasted: ___ mg No Longer Active 09/22/2015 [facility] Levetiracetam 1,000 mg, Route: IVPB, ONCE, Dosing Weight 79.545, kg, Start date: 09/22/15 1:46:00, Stop date: 09/22/15 1:46:00Notes: Same as Keppra Mix with 100 mL NS, LR or D5W MEDICATION WASTE Product Size: 500 mg Product Wasted: ___ mg Inactive 09/22/2015 [facility] Acetaminophen 650 mg, 2 tab, Route: PO, Drug form: TAB, Q4H, Dosing Weight 79.545, kg, PRN Pain 1-3/Temp > 99.5 F, Start date: 09/22/15 1:46:00, Duration: 30 day, Stop date: 10/22/15 1:45:00Notes: Do not exceed 4 gm/day. (Same as: Tylenol) No Longer Active 09/22/2015 [facility] Acetaminophen 325 MG / Hydrocodone Bitartrate 10 MG Oral Tablet 1 tab, Route: PO, Dosing Weight 79.545, kg, ONCE, STAT, Start date: 09/22/15 1:10:00, Stop date: 09/22/15 1:10:00 Inactive 09/22/2015 [facility] Morphine 4 mg, Route: IVP, ONCE, Dosing Weight 79.545, kg, Start date: 09/22/15 0:07:00, Stop date: 09/22/15 0:07:00 Inactive 09/22/2015 [facility] Acetaminophen 325 MG / Hydrocodone Bitartrate 10 MG Oral Tablet [[place] 10/325] 1 tab, Route: PO, Drug Form: TAB, Dosing Weight 81.818, kg, ONCE, STAT, Start date: 09/21/15 18:15:00, Stop date: 09/21/15 18:15:00Notes: Do not exceed 4gm/day of acetaminophen. (Same as: [place] 325/10) Inactive 09/21/2015 [facility] Labetalol 20 mg, Route: IVP, Drug form: INJ, ONCE, Dosing Weight 81.818, kg, Priority: STAT, Start date: 09/21/15 17:57:00, Stop date: 09/21/15 17:57:00 Inactive 09/21/2015 [facility] docosahexaenoic acid 200 MG / Eicosapentaenoic Acid 300 MG / Vitamin E 1 UNT Oral Capsule 0 Refill(s) Active 04/14/2014 [facility] Calcium 600 +D oral tablet 0 Refill(s) Active 04/14/2014 [facility] Limbrel 500 mg oral capsule 0 Refill(s) Active 04/14/2014 [facility] tadalafil 5 MG Oral Tablet [Cialis] 5 mg=1 tab, PO, Daily, for erectile dysfunction, 0 Refill(s) Active 04/14/2014 [facility] aspirin 325 mg tablet 0 Refill(s) Active 04/14/2014 [facility] Ascorbic Acid / Biotin / Folic Acid / Niacin / pantothenate / pyridoxine / Riboflavin / Thiamine / Vitamin B 12 0 Refill(s) Active 04/14/2014 [facility] acetaminophen-codeine #4 1 tab, PO, Q4H, PRN Pain, 0 Refill(s) Active 04/14/2014 [facility] tamsulosin 0.4 mg oral capsule 0.4 mg=1 cap, PO, Daily, # 30 cap, 0 Refill(s) Active 04/14/2014 [facility] pravastatin 40 mg oral tablet 40 mg=1 tab, PO, Bedtime, # 30 tab, 0 Refill(s) Active 04/14/2014 [facility] ALPRAZOLam 0.5 mg oral tablet, disintegrating 0.5 mg=1 tab, PO, TID, for anxiety, 0 Refill(s) Active 04/14/2014 [facility] cyclobenzaprine 10 mg oral tablet 0 Refill(s) Active 04/14/2014 [facility] Furosemide 20 MG Oral Tablet 0 Refill(s) Active 04/14/2014 [facility] Potassium Chloride 20 MEQ Extended Release Tablet 0 Refill(s) Active 04/14/2014 [facility] duloxetine 60 MG Enteric Coated Capsule [Cymbalta] 60 mg=1 cap, PO, Daily, # 30 cap, 0 Refill(s) Active 04/14/2014 [facility] Ranitidine 150 MG Oral Capsule 150 mg=1 cap, PO, BID, # 60 cap, 0 Refill(s) Active 04/14/2014 [facility] nebivolol 20 MG Oral Tablet [Bystolic] 0 Refill(s) Active 04/14/2014 [facility] 200 ACTUAT Albuterol 0.09 MG/ACTUAT / Ipratropium [place] 0.018 MG/ACTUAT Metered Dose Inhaler [Combivent] 2 puff, INHALER, QID, # 14 gm, 0 Refill(s) Active 04/14/2014 [facility] Sodium Chloride 0.154 MEQ/ML Injectable Solution 1,000 mL, Rate: 25 ml/hr, Infuse over: 40 hr, Route: IV, Dosing Weight 75.909 kg, Total Volume: 1,000, Start date: 04/14/14 7:59:00, Duration: 30 day, Stop date: 05/14/14 7:58:00 Inactive 04/14/2014 [facility] Alprazolam 0 Refill(s) No Longer Active 04/10/2014 [facility] Aspirin 81 MG Enteric Coated Tablet 81 mg=1 tab, PO, Daily, # 0 tab, 0 Refill(s) No Longer Active 04/10/2014 [facility] Cialis 0 Refill(s) No Longer Active 04/10/2014 [facility] Potassium Chloride 0 Refill(s) No Longer Active 04/10/2014 [facility] Furosemide 40 MG Oral Tablet 40 mg=1 tab, PO, Daily, # 30 tab, 0 Refill(s) No Longer Active 04/10/2014 [facility] Albuterol 0.09 MG/ACTUAT Inhalant Solution 1 puff, INHALATION, QID, wheezing, # 1 ea, 0 Refill(s) No Longer Active 04/10/2014 [facility] Allergies, Adverse Reactions, Alerts Substance Category Reaction Severity Reaction type Status Date Reported Comments Source No Known Medication Allergies Assertion Drug allergy [facility] Immunizations Immunization Date Given Site Status Last Updated Comments Source influenza virus vaccine, inactivated<sup>1</sup> 05/05/2018 Left Deltoid completed [facility] Result Comment: Patient waited 15 min with no reaction. [facility] pneumococcal 13-valent vaccine 06/02/2017 Right Deltoid completed [facility] influenza virus vaccine, inactivated<sup>2</sup> 04/28/2017 Left Deltoid completed [facility] Result Comment: Patient waited 15 min with no reaction. [facility] influenza virus vaccine, inactivated<sup>1</sup> 04/28/2017 Left Deltoid completed [facility] Result Comment: Patient waited 15 min with no reaction. [facility] influenza virus vaccine, inactivated 03/17/2016 Left Deltoid completed [facility] Hx influenza vaccine-unspecified<sup>1</sup> 04/24/2014 completed GE Result Comment: done high dose. Migrated from [facility] ; Data migrated from [employer] on 07/31/2015. [facility] Hx influenza vaccine-unspecified<sup>4</sup> 04/24/2014 completed GE Result Comment: done high dose. Migrated from OBS ; Data migrated from [employer] on 07/31/2015. [facility] Hx influenza vaccine-unspecified<sup>3</sup> 04/24/2014 completed GE Result Comment: done high dose. Migrated from OBS ; Data migrated from [employer] on 07/31/2015. [facility] influenza virus vaccine, inactivated<sup>3</sup> 04/24/2014 Right Deltoid completed GE Result Comment: fluzone high dose [[id number]]. Migrated from OBS ; Data migrated from [employer] on 07/31/2015. [facility] influenza virus vaccine, inactivated<sup>2</sup> 04/24/2014 Right Deltoid completed GE Result Comment: fluzone high dose [[id number]]. Migrated from OBS ; Data migrated from [employer] on 07/31/2015. [facility] pneumococcal 23-valent vaccine<sup>3</sup> 11/11/2013 Right Deltoid completed GE Result Comment: pneumovax 23 [cvx33]. Migrated from OBS VIS: Pneumovax 23: 04/03/09 ; Data migrated from [employer] on 07/31/2015. [facility] pneumococcal 23-valent vaccine<sup>5</sup> 11/11/2013 Right Deltoid completed GE Result Comment: pneumovax 23 [cvx33]. Migrated from OBS VIS: Pneumovax 23: 04/03/09 ; Data migrated from [employer] on 07/31/2015. [facility] pneumococcal 23-valent vaccine<sup>4</sup> 11/11/2013 Right Deltoid completed GE Result Comment: pneumovax 23 [cvx33]. Migrated from OBS VIS: Pneumovax 23: 04/03/09 ; Data migrated from [employer] on 07/31/2015. [facility] Results Order Name Results Value Reference Range Date Interpretation Comments Source DRUG SCREEN U Methadone Scr Negative *NA* (06/02/17 8:00 AM) Negative 06/02/2017 [facility] DRUG SCREEN U Phencyc Scr Negative *NA* (06/02/17 8:00 AM) Negative 06/02/2017 [facility] DRUG SCREEN UDS Note See Note (06/02/17 8:00 AM) 06/02/2017 [facility] DRUG SCREEN U Propoxyph Scr Negative *NA* (06/02/17 8:00 AM) Negative 06/02/2017 [facility] DRUG SCREEN U Amph Scr Negative *NA* (06/02/17 8:00 AM) Negative 06/02/2017 [facility] DRUG SCREEN U Cocaine Scr Negative *NA* (06/02/17 8:00 AM) Negative 06/02/2017 [facility] DRUG SCREEN U Danae Scr Negative *NA* (06/02/17 8:00 AM) Negative 06/02/2017 [facility] DRUG SCREEN U Benzodia Scr Negative *NA* (06/02/17 8:00 AM) Negative 06/02/2017 [facility] DRUG SCREEN U Cannab Scr Negative *NA* (06/02/17 8:00 AM) Negative 06/02/2017 [facility] DRUG SCREEN U Opiate Scr Positive *ABN* (06/02/17 8:00 AM) Negative 06/02/2017 [facility] URINE AND STOOL UA RBC 3 0 - 2 06/02/2017 [facility] URINE AND STOOL UA Bacteria Occasional /HPF None Seen /HPF 06/02/2017 [facility] URINE AND STOOL UA Amorph [place] Occasional /HPF None Seen /HPF 06/02/2017 [facility] URINE AND STOOL UA Mucus Few /LPF None Seen /LPF 06/02/2017 [facility] URINE AND STOOL UA WBC <1 0 - 5 06/02/2017 [facility] URINE AND STOOL UA Leuk Est Negative (06/02/17 8:00 AM) Negative 06/02/2017 [facility] URINE AND STOOL UA Urobilinogen 1.0 0.1 - 1.0 06/02/2017 [facility] URINE AND STOOL UA Nitrite Negative (06/02/17 8:00 AM) Negative 06/02/2017 [facility] URINE AND STOOL UA Bili Negative *NA* (06/02/17 8:00 AM) Negative 06/02/2017 [facility] URINE AND STOOL UA Ketones Negative *NA* (06/02/17 8:00 AM) Negative 06/02/2017 [facility] URINE AND STOOL UA Blood Negative (06/02/17 8:00 AM) Negative 06/02/2017 [facility] URINE AND STOOL UA Glucose Negative (06/02/17 8:00 AM) Negative 06/02/2017 [facility] URINE AND STOOL UA Protein Negative (06/02/17 8:00 AM) Negative 06/02/2017 [facility] URINE AND STOOL UA Color Yellow *NA* (06/02/17 8:00 AM) Yellow 06/02/2017 [facility] URINE AND STOOL UA Spec Grav 1.020 <=1.030 06/02/2017 [facility] URINE AND STOOL UA Turbidity Clear (06/02/17 8:00 AM) Clear 06/02/2017 [facility] URINE AND STOOL UA pH 6.0 5.0 - 8.0 06/02/2017 [facility] URINE AND STOOL UA Sq Epi None Seen (06/02/17 8:00 AM) Few 06/02/2017 [facility] ANEMIA STUDY Vitamin B12 Lvl 456 254 - 1320 06/02/2017 [facility] CHEM PANEL eGFR 83 06/02/2017 Result Comment: The eGFR is calculated [...] should be multiplied by the estimated BMI. [facility] CHEM PANEL Total Protein 6.6 6.4 - 8.4 06/02/2017 [facility] CHEM PANEL B/C Ratio 24 6 - 25 06/02/2017 [facility] CHEM PANEL AGAP 15.9 10.0 - 20.0 06/02/2017 [facility] CHEM PANEL CO2 26 24 - 32 06/02/2017 [facility] CHEM PANEL Calcium Lvl 8.6 8.5 - 10.5 06/02/2017 [facility] CHEM PANEL A/G Ratio 1.0 0.7 - 1.6 06/02/2017 [facility] CHEM PANEL Albumin Lvl 3.3 3.5 - 5.0 06/02/2017 [facility] CHEM PANEL Globulin 3.3 2.7 - 4.2 06/02/2017 [facility] CHEM PANEL ALT 21 0 - 65 06/02/2017 [facility] CHEM PANEL Alk Phos 87 39 - 136 06/02/2017 [facility] CHEM PANEL Bili Total 0.5 0.2 - 1.3 06/02/2017 [facility] CHEM PANEL AST 13 0 - 37 06/02/2017 [facility] CHEM PANEL Glucose Lvl 108 70 - 99 06/02/2017 [facility] CHEM PANEL Chloride Lvl 104 95 - 109 06/02/2017 [facility] CHEM PANEL Potassium Lvl 4.9 3.5 - 5.1 06/02/2017 [facility] CHEM PANEL Sodium Lvl 141 135 - 145 06/02/2017 [facility] CHEM PANEL Creatinine Lvl 0.90 0.50 - 1.40 06/02/2017 [facility] CHEM PANEL BUN 22 7 - 22 06/02/2017 [facility] HEMATOLOGY Hct 38.3 42.0 - 54.0 06/02/2017 [facility] HEMATOLOGY RBC 4.39 4.70 - 6.10 06/02/2017 [facility] HEMATOLOGY Hgb 12.8 14.0 - 18.0 06/02/2017 [facility] HEMATOLOGY MCV 87.1 80.0 - 94.0 06/02/2017 [facility] HEMATOLOGY MPV 9.1 7.4 - 10.4 06/02/2017 [facility] HEMATOLOGY RDW 15.6 11.5 - 14.5 06/02/2017 [facility] HEMATOLOGY WBC 14.2 3.7 - 10.4 06/02/2017 [facility] HEMATOLOGY MCHC 33.5 32.0 - 36.0 06/02/2017 [facility] HEMATOLOGY MCH 29.2 27.0 - 31.0 06/02/2017 [facility] HEMATOLOGY Platelet 257 133 - 450 06/02/2017 [facility] HEMATOLOGY Monocytes # 0.8 0.0 - 0.8 06/02/2017 [facility] HEMATOLOGY Lymphocytes # 1.5 1.0 - 5.5 06/02/2017 [facility] HEMATOLOGY Segs-Bands # 11.8 1.5 - 8.1 06/02/2017 [facility] HEMATOLOGY Basophils 0.2 0.0 - 1.0 06/02/2017 [facility] HEMATOLOGY Monocytes 5.9 2.0 - 12.0 06/02/2017 [facility] HEMATOLOGY Lymphocytes 10.7 20.0 - 40.0 06/02/2017 [facility] HEMATOLOGY Segs 83.2 45.0 - 75.0 06/02/2017 [facility] CHEM PANEL Lactic Acid Lvl 1.2 0.5 - 2.2 06/01/2017 [facility] CARDIAC ENZYMES CK MB 3.4 0.5 - 3.6 06/01/2017 [facility] CARDIAC ENZYMES Total CK 96 12 - 191 06/01/2017 [facility] CARDIAC ENZYMES BNP 488 <=100 pg/mL 06/01/2017 [facility] CARDIAC ENZYMES Troponin-I 0.03 0.00 - 0.40 06/01/2017 [facility] CARDIAC ENZYMES CK MB Index 3.5 0.0 - 2.5 06/01/2017 [facility] CHEM PANEL Lactic Acid Lvl 1.9 0.5 - 2.2 06/01/2017 [facility] CHEM PANEL eGFR 51 06/01/2017 Result Comment: The eGFR is calculated [...] should be multiplied by the estimated BMI. [facility] CHEM PANEL Creatinine Lvl 1.36 0.50 - 1.40 06/01/2017 [facility] CHEM PANEL BUN 23 7 - 22 06/01/2017 [facility] CHEM PANEL Sodium Lvl 137 135 - 145 06/01/2017 [facility] CHEM PANEL Potassium Lvl 3.5 3.5 - 5.1 06/01/2017 [facility] CHEM PANEL Glucose Lvl 118 70 - 99 06/01/2017 [facility] CHEM PANEL AST 13 0 - 37 06/01/2017 [facility] CHEM PANEL Alk Phos 87 39 - 136 06/01/2017 [facility] CHEM PANEL Calcium Lvl 8.4 8.5 - 10.5 06/01/2017 [facility] CHEM PANEL CO2 27 24 - 32 06/01/2017 [facility] CHEM PANEL Bili Total 0.4 0.2 - 1.3 06/01/2017 [facility] CHEM PANEL ALT 18 0 - 65 06/01/2017 [facility] CHEM PANEL Albumin Lvl 3.3 3.5 - 5.0 06/01/2017 [facility] CHEM PANEL Chloride Lvl 101 95 - 109 06/01/2017 [facility] CHEM PANEL Total Protein 6.8 6.4 - 8.4 06/01/2017 [facility] CHEM PANEL A/G Ratio 0.9 0.7 - 1.6 06/01/2017 [facility] CHEM PANEL Globulin 3.5 2.7 - 4.2 06/01/2017 [facility] CHEM PANEL B/C Ratio 17 6 - 25 06/01/2017 [facility] CHEM PANEL AGAP 12.5 10.0 - 20.0 06/01/2017 [facility] HEMATOLOGY MPV 8.6 7.4 - 10.4 06/01/2017 [facility] HEMATOLOGY MCH 28.6 27.0 - 31.0 06/01/2017 [facility] HEMATOLOGY RDW 15.6 11.5 - 14.5 06/01/2017 [facility] HEMATOLOGY MCHC 33.2 32.0 - 36.0 06/01/2017 [facility] HEMATOLOGY Platelet 263 133 - 450 06/01/2017 [facility] HEMATOLOGY Hgb 13.5 14.0 - 18.0 06/01/2017 [facility] HEMATOLOGY Hct 40.7 42.0 - 54.0 06/01/2017 [facility] HEMATOLOGY MCV 86.3 80.0 - 94.0 06/01/2017 [facility] HEMATOLOGY RBC 4.72 4.70 - 6.10 06/01/2017 [facility] HEMATOLOGY WBC 13.1 3.7 - 10.4 06/01/2017 [facility] HEMATOLOGY Monocytes 7.8 2.0 - 12.0 06/01/2017 [facility] HEMATOLOGY Segs 70.9 45.0 - 75.0 06/01/2017 [facility] HEMATOLOGY Lymphocytes 18.3 20.0 - 40.0 06/01/2017 [facility] HEMATOLOGY Segs-Bands # 9.3 1.5 - 8.1 06/01/2017 [facility] HEMATOLOGY Lymphocytes # 2.4 1.0 - 5.5 06/01/2017 [facility] HEMATOLOGY Eosinophils 2.7 0.0 - 4.0 06/01/2017 [facility] HEMATOLOGY Basophils 0.3 0.0 - 1.0 06/01/2017 [facility] HEMATOLOGY Monocytes # 1.0 0.0 - 0.8 06/01/2017 [facility] HEMATOLOGY Eosinophils # 0.3 0.0 - 0.5 06/01/2017 [facility] CHEM PANEL Calcium Lvl 9.2 8.5 - 10.5 11/30/2016 [facility] CHEM PANEL CO2 33 24 - 32 11/30/2016 [facility] CHEM PANEL eGFR 88 11/30/2016 Result Comment: The eGFR is calculated [...] should be multiplied by the estimated BMI. [facility] CHEM PANEL Glucose Lvl 144 70 - 99 11/30/2016 [facility] CHEM PANEL Potassium Lvl 5.2 3.5 - 5.1 11/30/2016 [facility] CHEM PANEL Chloride Lvl 98 95 - 109 11/30/2016 [facility] CHEM PANEL BUN 24 7 - 22 11/30/2016 [facility] CHEM PANEL Creatinine Lvl 0.79 0.50 - 1.40 11/30/2016 [facility] CHEM PANEL Sodium Lvl 139 135 - 145 11/30/2016 [facility] CHEM PANEL AGAP 13.2 10.0 - 20.0 11/30/2016 [facility] HEMATOLOGY Lymphocytes # 1.8 1.0 - 5.5 11/30/2016 [facility] HEMATOLOGY Monocytes # 0.9 0.0 - 0.8 11/30/2016 [facility] HEMATOLOGY Eosinophils # 0.2 0.0 - 0.5 11/30/2016 [facility] HEMATOLOGY RBC Morph Normal (11/30/16 4:02 AM) 11/30/2016 [facility] Lymphocytes 19.0 20.0 - 40.0 11/30/2016 [facility] Monocytes 9.3 2.0 - 12.0 11/30/2016 [facility] HEMATOLOGY Eosinophils 1.8 0.0 - 4.0 11/30/2016 [facility] Plt Morph Normal (11/30/16 4:02 AM) 11/30/2016 [facility] HEMATOLOGY Segs 69.5 45.0 - 75.0 11/30/2016 [facility] Basophils 0.4 0.0 - 1.0 11/30/2016 [facility] Segs-Bands # 6.5 1.5 - 8.1 11/30/2016 [facility] RBC 3.44 4.70 - 6.10 11/30/2016 [facility] WBC 9.3 3.7 - 10.4 11/30/2016 [facility] Hct 28.8 42.0 - 54.0 11/30/2016 [facility] Hgb 9.4 14.0 - 18.0 11/30/2016 [facility] RDW 15.5 11.5 - 14.5 11/30/2016 [facility] MCHC 32.6 32.0 - 36.0 11/30/2016 [facility] MPV 8.3 7.4 - 10.4 11/30/2016 [facility] MCH 27.3 27.0 - 31.0 11/30/2016 [facility] Platelet 439 133 - 450 11/30/2016 [facility] MCV 83.8 80.0 - 94.0 11/30/2016 [facility] CHEM PANEL Magnesium Lvl 1.9 1.8 - 2.4 11/28/2016 [facility] ELECTROLYTES AGAP 12.7 10.0 - 20.0 11/28/2016 [facility] ELECTROLYTES eGFR 98 11/28/2016 Result Comment: The eGFR is calculated [...] should be multiplied by the estimated BMI. [facility] ELECTROLYTES Calcium Lvl 9.0 8.5 - 10.5 11/28/2016 [facility] ELECTROLYTES BUN 17 7 - 22 11/28/2016 [facility] ELECTROLYTES Glucose Lvl 151 70 - 99 11/28/2016 [facility] ELECTROLYTES Sodium Lvl 139 135 - 145 11/28/2016 [facility] ELECTROLYTES Creatinine Lvl 0.62 0.50 - 1.40 11/28/2016 [facility] ELECTROLYTES Chloride Lvl 98 95 - 109 11/28/2016 [facility] ELECTROLYTES CO2 32 24 - 32 11/28/2016 [facility] ELECTROLYTES Potassium Lvl 3.7 3.5 - 5.1 11/28/2016 [facility] HEMATOLOGY Basophils # 0.1 0.0 - 0.2 11/28/2016 [facility] HEMATOLOGY Eosinophils # 0.2 0.0 - 0.5 11/28/2016 [facility] Monocytes 8.3 2.0 - 12.0 11/28/2016 [facility] HEMATOLOGY Segs 74.0 45.0 - 75.0 11/28/2016 [facility] Lymphocytes 14.7 20.0 - 40.0 11/28/2016 [facility] Basophils 1.0 0.0 - 1.0 11/28/2016 [facility] Segs-Bands # 7.3 1.5 - 8.1 11/28/2016 [facility] HEMATOLOGY Eosinophils 2.0 0.0 - 4.0 11/28/2016 [facility] Lymphocytes # 1.4 1.0 - 5.5 11/28/2016 [facility] Monocytes # 0.8 0.0 - 0.8 11/28/2016 [facility] WBC 9.8 3.7 - 10.4 11/28/2016 [facility] RBC 3.57 4.70 - 6.10 11/28/2016 [facility] RDW 15.6 11.5 - 14.5 11/28/2016 [facility] Platelet 422 133 - 450 11/28/2016 [facility] Hct 29.6 42.0 - 54.0 11/28/2016 [facility] MCV 83.0 80.0 - 94.0 11/28/2016 [facility] Hgb 9.9 14.0 - 18.0 11/28/2016 [facility] MCH 27.7 27.0 - 31.0 11/28/2016 [facility] MCHC 33.4 32.0 - 36.0 11/28/2016 [facility] MPV 7.9 7.4 - 10.4 11/28/2016 [facility] BLOOD BANK RESULTS RBC product Product available 1 (11/27/16 7:09 PM) 11/28/2016 Result Comment: 11/27/2016 20:16 [id number]
spoke to Landen Sheridan on 11/27/2016 20:16 by Kelvin. [facility] BLOOD BANK RESULTS Antibody Scrn Negative (11/27/16 3:55 PM) 11/27/2016 [facility] BLOOD BANK RESULTS ABO/Rh O POS 11/27/2016 [facility] Platelet 444 133 - 450 11/27/2016 [facility] MPV 8.0 7.4 - 10.4 11/27/2016 [facility] RBC 2.72 4.70 - 6.10 11/27/2016 [facility] Hgb 7.2 14.0 - 18.0 11/27/2016 [facility] WBC 9.7 3.7 - 10.4 11/27/2016 [facility] MCV 82.0 80.0 - 94.0 11/27/2016 [facility] Hct 22.3 42.0 - 54.0 11/27/2016 [facility] RDW 15.5 11.5 - 14.5 11/27/2016 [facility] MCHC 32.5 32.0 - 36.0 11/27/2016 [facility] MCH 26.6 27.0 - 31.0 11/27/2016 [facility] Eosinophils 1.9 0.0 - 4.0 11/27/2016 [facility] Basophils 0.3 0.0 - 1.0 11/27/2016 [facility] Lymphocytes # 1.5 1.0 - 5.5 11/27/2016 [facility] Segs-Bands # 7.2 1.5 - 8.1 11/27/2016 [facility] Eosinophils # 0.2 0.0 - 0.5 11/27/2016 [facility] Monocytes # 0.8 0.0 - 0.8 11/27/2016 [facility] HEMATOLOGY Monocytes 8.2 2.0 - 12.0 11/27/2016 [facility] HEMATOLOGY Lymphocytes 15.3 20.0 - 40.0 11/27/2016 [facility] HEMATOLOGY Segs 74.3 45.0 - 75.0 11/27/2016 [facility] ELECTROLYTES AGAP 10.3 10.0 - 20.0 11/27/2016 [facility] ELECTROLYTES Creatinine Lvl 0.58 0.50 - 1.40 11/27/2016 [facility] ELECTROLYTES Glucose Lvl 145 70 - 99 11/27/2016 [facility] ELECTROLYTES Calcium Lvl 8.3 8.5 - 10.5 11/27/2016 [facility] ELECTROLYTES BUN 17 7 - 22 11/27/2016 [facility] ELECTROLYTES eGFR 100 11/27/2016 Result Comment: The eGFR is calculated [...] should be multiplied by the estimated BMI. [facility] ELECTROLYTES CO2 33 24 - 32 11/27/2016 [facility] ELECTROLYTES Sodium Lvl 138 135 - 145 11/27/2016 [facility] ELECTROLYTES Potassium Lvl 3.3 3.5 - 5.1 11/27/2016 [facility] ELECTROLYTES Chloride Lvl 98 95 - 109 11/27/2016 [facility] CHEM PANEL Phosphorus 2.8 2.5 - 4.5 11/26/2016 [facility] CHEM PANEL Magnesium Lvl 1.6 1.8 - 2.4 11/26/2016 [facility] CHEM PANEL Phosphorus 1.4 2.5 - 4.5 11/25/2016 Result Comment: Critical Result(s) called to Adrianne Gonzalez at 11/25/2016 19:46 by deidra. Read back OK. [facility] CHEM PANEL Magnesium Lvl 1.7 1.8 - 2.4 11/25/2016 [facility] CARDIAC ENZYMES Troponin-I 0.04 0.00 - 0.40 11/25/2016 [facility] CHEM PANEL Total Protein 6.1 6.4 - 8.4 11/25/2016 [facility] CHEM PANEL A/G Ratio 0.7 0.7 - 1.6 11/25/2016 [facility] CHEM PANEL ALT 9 0 - 65 11/25/2016 [facility] CHEM PANEL Bili Total 0.4 0.2 - 1.3 11/25/2016 [facility] CHEM PANEL AST 12 0 - 37 11/25/2016 [facility] CHEM PANEL Alk Phos 78 39 - 136 11/25/2016 [facility] CHEM PANEL B/C Ratio 33 6 - 25 11/25/2016 [facility] CHEM PANEL Albumin Lvl 2.5 3.5 - 5.0 11/25/2016 [facility] CHEM PANEL Globulin 3.6 2.7 - 4.2 11/25/2016 [facility] CHEM PANEL Phosphorus 2.2 2.5 - 4.5 11/25/2016 [facility] HEMATOLOGY INR 1.05 0.85 - 1.17 11/23/2016 [facility] HEMATOLOGY PT 13.9 12.0 - 14.7 11/23/2016 [facility] HEMATOLOGY PTT 23.7 22.9 - 35.8 11/23/2016 [facility] BACTERIAL - SEROLOGY MRSA by PCR Negative (11/17/16 7:01 PM) 11/18/2016 [facility] BLOOD BANK RESULTS ABO/Rh O POS 11/14/2016 [facility] BLOOD BANK RESULTS Antibody Scrn Negative (11/14/16 2:23 PM) 11/14/2016 [facility] HEMATOLOGY PT 13.3 12.0 - 14.7 11/14/2016 [facility] HEMATOLOGY INR 0.99 0.85 - 1.17 11/14/2016 [facility] HEMATOLOGY PTT 30.5 22.9 - 35.8 11/14/2016 [facility] CHEM PANEL Bili Total 0.3 0.2 - 1.3 11/14/2016 [facility] CHEM PANEL Alk Phos 88 39 - 136 11/14/2016 [facility] CHEM PANEL AST 12 0 - 37 11/14/2016 [facility] CHEM PANEL Total Protein 7.0 6.4 - 8.4 11/14/2016 [facility] CHEM PANEL B/C Ratio 14 6 - 25 11/14/2016 [facility] CHEM PANEL ALT 14 0 - 65 11/14/2016 [facility] CHEM PANEL A/G Ratio 0.7 0.7 - 1.6 11/14/2016 [facility] CHEM PANEL Globulin 4.2 2.7 - 4.2 11/14/2016 [facility] CHEM PANEL Albumin Lvl 2.8 3.5 - 5.0 11/14/2016 [facility] LIPIDS VLDL 31 11/13/2016 [facility] LIPIDS HDL 25 >=61 mg/dL 11/13/2016 [facility] LIPIDS CHD Risk 6.88 4.00 - 7.30 11/13/2016 [facility] LIPIDS Chol 172 <=199 mg/dL 11/13/2016 [facility] LIPIDS Trig 154 <=149 mg/dL 11/13/2016 [facility] LIPIDS LDL (Calculated) 116 <=99 mg/dL 11/13/2016 [facility] URINE AND STOOL UA Sq Epi None Seen 11/11/2016 [facility] URINE AND STOOL UA Color Ltyellow 11/11/2016 [facility] URINE AND STOOL UA Urobilinogen <=1.0 mg/dL 0.1 - 1.0 11/11/2016 [facility] URINE AND STOOL UA pH 6.0 5.0 - 8.0 11/11/2016 [facility] URINE AND STOOL UA Spec Grav 1.009 <=1.030 11/11/2016 [facility] URINE AND STOOL UA Turbidity Clear (11/11/16 2:34 PM) Clear 11/11/2016 [facility] URINE AND STOOL UA Protein Negative mg/dL Negative mg/dL 11/11/2016 [facility] URINE AND STOOL UA RBC 1 0 - 2 11/11/2016 [facility] URINE AND STOOL UA Bacteria Occasional /HPF None Seen /HPF 11/11/2016 [facility] URINE AND STOOL UA Glucose Negative mg/dL Negative mg/dL 11/11/2016 [facility] URINE AND STOOL UA Nitrite Negative (11/11/16 2:34 PM) Negative 11/11/2016 [facility] URINE AND STOOL UA Bili Negative *NA* (11/11/16 2:34 PM) Negative 11/11/2016 [facility] URINE AND STOOL UA Ketones Negative mg/dL Negative mg/dL 11/11/2016 [facility] URINE AND STOOL UA WBC 7 0 - 5 11/11/2016 [facility] URINE AND STOOL UA Blood Negative (11/11/16 2:34 PM) Negative 11/11/2016 [facility] URINE AND STOOL UA Leuk Est Trace *ABN* (11/11/16 2:34 PM) Negative 11/11/2016 [facility] BLOOD BANK RESULTS Antibody Scrn Negative (11/10/16 5:22 PM) 11/10/2016 [facility] BLOOD BANK RESULTS ABO/Rh O POS 11/10/2016 [facility] HEMATOLOGY PTT 35.9 22.9 - 35.8 11/10/2016 [facility] HEMATOLOGY PT 14.0 12.0 - 14.7 11/10/2016 [facility] HEMATOLOGY INR 1.06 0.85 - 1.17 11/10/2016 [facility] CHEM PANEL Procalcitonin Lvl 0.08 0.00 - 0.10 11/10/2016 [facility] CHEM PANEL Bili Total 0.9 0.2 - 1.3 11/10/2016 [facility] CHEM PANEL Alk Phos 98 39 - 136 11/10/2016 [facility] CHEM PANEL ALT 14 0 - 65 11/10/2016 [facility] CHEM PANEL AST 9 0 - 37 11/10/2016 [facility] CHEM PANEL Total Protein 7.5 6.4 - 8.4 11/10/2016 [facility] CHEM PANEL Albumin Lvl 3.1 3.5 - 5.0 11/10/2016 [facility] CHEM PANEL Globulin 4.4 2.7 - 4.2 11/10/2016 [facility] CHEM PANEL A/G Ratio 0.7 0.7 - 1.6 11/10/2016 [facility] CHEM PANEL B/C Ratio 21 6 - 25 11/10/2016 [facility] HEMATOLOGY Sed Rate 63 0 - 15 11/10/2016 [facility] IMMUNOLOGY C-REACTIVE PROTEIN 151.0 <=2.9 mg/L 11/10/2016 [facility] HEMATOLOGY Basophils # 0.1 0.0 - 0.2 11/07/2016 [facility] CARDIAC ENZYMES Total CK 91 12 - 191 11/05/2016 [facility] CARDIAC ENZYMES Troponin-I <0.02 0.00 - 0.40 11/05/2016 [facility] CARDIAC ENZYMES Total CK 88 12 - 191 11/05/2016 [facility] CARDIAC ENZYMES Troponin-I <0.02 0.00 - 0.40 11/05/2016 [facility] CARDIAC ENZYMES CK MB Index 1.6 0.0 - 2.5 11/05/2016 [facility] CARDIAC ENZYMES CK MB 1.4 0.5 - 3.6 11/05/2016 [facility] CARDIAC ENZYMES CK MB Index 1.3 0.0 - 2.5 11/05/2016 [facility] CARDIAC ENZYMES CK MB 1.2 0.5 - 3.6 11/05/2016 [facility] CARDIAC ENZYMES CK MB Index 1.4 0.0 - 2.5 11/05/2016 [facility] CARDIAC ENZYMES BNP 329 <=100 pg/mL 11/05/2016 [facility] CARDIAC ENZYMES Total CK 118 12 - 191 11/05/2016 [facility] CARDIAC ENZYMES CK MB 1.6 0.5 - 3.6 11/05/2016 [facility] CHEM PANEL Lipase Lvl 59 73 - 393 11/05/2016 [facility] DRUG SCREEN U Phencyc Scr Negative *NA* (10/07/16 7:45 PM) Negative 10/08/2016 [facility] DRUG SCREEN UDS Note See Note (10/07/16 7:45 PM) 10/08/2016 [facility] DRUG SCREEN U Danae Scr Negative *NA* (10/07/16 7:45 PM) Negative 10/08/2016 [facility] DRUG SCREEN U Amph Scr Negative *NA* (10/07/16 7:45 PM) Negative 10/08/2016 [facility] DRUG SCREEN U Benzodia Scr Positive *ABN* (10/07/16 7:45 PM) Negative 10/08/2016 [facility] DRUG SCREEN U Cocaine Scr Negative *NA* (10/07/16 7:45 PM) Negative 10/08/2016 [facility] DRUG SCREEN U Cannab Scr Negative *NA* (10/07/16 7:45 PM) Negative 10/08/2016 [facility] DRUG SCREEN U Opiate Scr Positive *ABN* (10/07/16 7:45 PM) Negative 10/08/2016 [facility] URINE AND STOOL UA Bili Negative *NA* (10/07/16 7:45 PM) Negative 10/08/2016 [facility] URINE AND STOOL UA Nitrite Negative (10/07/16 7:45 PM) Negative 10/08/2016 [facility] URINE AND STOOL UA Leuk Est Negative (10/07/16 7:45 PM) Negative 10/08/2016 [facility] URINE AND STOOL UA Ketones Negative mg/dL Negative mg/dL 10/08/2016 [facility] URINE AND STOOL UA Mucus Few /LPF None Seen /LPF 10/08/2016 [facility] URINE AND STOOL UA RBC <1 0 - 2 10/08/2016 [facility] URINE AND STOOL UA WBC 2 0 - 5 10/08/2016 [facility] URINE AND STOOL UA Renal Epi 1 <=0 /LPF 10/08/2016 [facility] URINE AND STOOL UA Hyal Cast 8 0 - 2 10/08/2016 [facility] URINE AND STOOL UA Protein Negative mg/dL Negative mg/dL 10/08/2016 [facility] URINE AND STOOL UA Blood Negative (10/07/16 7:45 PM) Negative 10/08/2016 [facility] URINE AND STOOL UA Glucose Negative mg/dL Negative mg/dL 10/08/2016 [facility] URINE AND STOOL UA Urobilinogen <=1.0 mg/dL 0.1 - 1.0 10/08/2016 [facility] URINE AND STOOL UA Spec Grav 1.015 <=1.030 10/08/2016 [facility] URINE AND STOOL UA pH 6.0 5.0 - 8.0 10/08/2016 [facility] URINE AND STOOL UA Turbidity Clear (10/07/16 7:45 PM) Clear 10/08/2016 [facility] URINE AND STOOL UA Sq Epi None Seen 10/08/2016 [facility] URINE AND STOOL UA Color Yellow *NA* (10/07/16 7:45 PM) Yellow 10/08/2016 [facility] CARDIAC ENZYMES CK MB Index 0.7 0.0 - 2.5 10/08/2016 [facility] CARDIAC ENZYMES Troponin-I <0.02 0.00 - 0.40 10/08/2016 [facility] CARDIAC ENZYMES CK MB 3.3 0.5 - 3.6 10/08/2016 [facility] CARDIAC ENZYMES Total CK 495 12 - 191 10/08/2016 [facility] CHEM PANEL eGFR 59 10/08/2016 Result Comment: The eGFR is calculated [...] estimated BMI. [facility] CHEM PANEL Globulin 4.2 2.7 - 4.2 10/08/2016 [facility] CHEM PANEL A/G Ratio 0.8 0.7 - 1.6 10/08/2016 [facility] CHEM PANEL CO2 32 24 - 32 10/08/2016 [facility] CHEM PANEL BUN 11 7 - 22 10/08/2016 [facility] CHEM PANEL Potassium Lvl 3.3 3.5 - 5.1 10/08/2016 [facility] CHEM PANEL Chloride Lvl 98 95 - 109 10/08/2016 [facility] CHEM PANEL Creatinine Lvl 1.20 0.50 - 1.40 10/08/2016 [facility] CHEM PANEL Sodium Lvl 140 135 - 145 10/08/2016 [facility] CHEM PANEL Glucose Lvl 169 70 - 99 10/08/2016 [facility] CHEM PANEL Total Protein 7.7 6.4 - 8.4 10/08/2016 [facility] CHEM PANEL Albumin Lvl 3.5 3.5 - 5.0 10/08/2016 [facility] CHEM PANEL Calcium Lvl 10.2 8.5 - 10.5 10/08/2016 [facility] CHEM PANEL ALT 11 0 - 65 10/08/2016 [facility] CHEM PANEL Alk Phos 103 39 - 136 10/08/2016 [facility] CHEM PANEL Bili Total 0.4 0.2 - 1.3 10/08/2016 [facility] CHEM PANEL AST 18 0 - 37 10/08/2016 [facility] CHEM PANEL AGAP 13.3 10.0 - 20.0 10/08/2016 [facility] CHEM PANEL B/C Ratio 9 6 - 25 10/08/2016 [facility] HEMATOLOGY Eosinophils # 0.1 0.0 - 0.5 10/08/2016 [facility] HEMATOLOGY Monocytes # 0.7 0.0 - 0.8 10/08/2016 [facility] HEMATOLOGY Lymphocytes # 2.0 1.0 - 5.5 10/08/2016 [facility] HEMATOLOGY Segs-Bands # 8.4 1.5 - 8.1 10/08/2016 [facility] HEMATOLOGY Monocytes 6.7 2.0 - 12.0 10/08/2016 [facility] HEMATOLOGY Lymphocytes 17.8 20.0 - 40.0 10/08/2016 [facility] HEMATOLOGY Segs 74.7 45.0 - 75.0 10/08/2016 [facility] HEMATOLOGY Basophils 0.1 0.0 - 1.0 10/08/2016 [facility] HEMATOLOGY Eosinophils 0.7 0.0 - 4.0 10/08/2016 [facility] HEMATOLOGY Hct 41.8 42.0 - 54.0 10/08/2016 [facility] HEMATOLOGY Hgb 14.0 14.0 - 18.0 10/08/2016 [facility] HEMATOLOGY MPV 9.4 7.4 - 10.4 10/08/2016 [facility] HEMATOLOGY MCHC 33.4 32.0 - 36.0 10/08/2016 [facility] MCH 28.1 27.0 - 31.0 10/08/2016 [facility] HEMATOLOGY MCV 84.1 80.0 - 94.0 10/08/2016 [facility] HEMATOLOGY Platelet 306 133 - 450 10/08/2016 [facility] HEMATOLOGY RDW 14.9 11.5 - 14.5 10/08/2016 [facility] HEMATOLOGY RBC 4.97 4.70 - 6.10 10/08/2016 [facility] HEMATOLOGY WBC 11.2 3.7 - 10.4 10/08/2016 [facility] TOXICOLOGY Ethanol Lvl <3 10/08/2016 [facility] TOXICOLOGY Etoh (%) <0.003 10/08/2016 [facility] TOXICOLOGY Acetaminoph Lvl <2 (10/07/16 7:42 PM) 10 - 20 10/08/2016 [facility] TOXICOLOGY Salicylate Lvl <1.7 0.0 - 30.0 10/08/2016 [facility] ANEMIA STUDY Vitamin B12 Lvl 531 254 - 1320 09/16/2016 [facility] CHEM PANEL Albumin Lvl 3.2 3.5 - 5.0 09/16/2016 [facility] CHEM PANEL AGAP 9.8 10.0 - 20.0 09/16/2016 [facility] CHEM PANEL CO2 33 24 - 32 09/16/2016 [facility] CHEM PANEL Chloride Lvl 105 95 - 109 09/16/2016 [facility] CHEM PANEL Potassium Lvl 3.8 3.5 - 5.1 09/16/2016 [facility] CHEM PANEL Total Protein 6.7 6.4 - 8.4 09/16/2016 [facility] CHEM PANEL B/C Ratio 8 6 - 25 09/16/2016 [facility] CHEM PANEL Sodium Lvl 144 135 - 145 09/16/2016 [facility] CHEM PANEL Creatinine Lvl 1.20 0.50 - 1.40 09/16/2016 [facility] CHEM PANEL Calcium Lvl 8.8 8.5 - 10.5 09/16/2016 [facility] CHEM PANEL BUN 10 7 - 22 09/16/2016 [facility] CHEM PANEL Glucose Lvl 102 70 - 99 09/16/2016 [facility] CHEM PANEL eGFR 59 09/16/2016 Result Comment: The eGFR is calculated [...] should be multiplied by the estimated BMI. [facility] CHEM PANEL Alk Phos 88 39 - 136 09/16/2016 [facility] CHEM PANEL AST 12 0 - 37 09/16/2016 [facility] CHEM PANEL ALT 11 0 - 65 09/16/2016 [facility] CHEM PANEL A/G Ratio 0.9 0.7 - 1.6 09/16/2016 [facility] CHEM PANEL Globulin 3.5 2.7 - 4.2 09/16/2016 [facility] CHEM PANEL Bili Total 0.5 0.2 - 1.3 09/16/2016 [facility] HEMATOLOGY Lymphocytes 24.4 20.0 - 40.0 09/16/2016 [facility] HEMATOLOGY Segs 65.1 45.0 - 75.0 09/16/2016 [facility] HEMATOLOGY Lymphocytes # 2.0 1.0 - 5.5 09/16/2016 [facility] HEMATOLOGY Monocytes # 0.7 0.0 - 0.8 09/16/2016 [facility] HEMATOLOGY Eosinophils # 0.2 0.0 - 0.5 09/16/2016 [facility] HEMATOLOGY Segs-Bands # 5.2 1.5 - 8.1 09/16/2016 [facility] HEMATOLOGY Eosinophils 2.1 0.0 - 4.0 09/16/2016 [facility] HEMATOLOGY Basophils 0.2 0.0 - 1.0 09/16/2016 [facility] HEMATOLOGY Monocytes 8.2 2.0 - 12.0 09/16/2016 [facility] HEMATOLOGY MCH 27.9 27.0 - 31.0 09/16/2016 [facility] HEMATOLOGY MCV 84.5 80.0 - 94.0 09/16/2016 [facility] HEMATOLOGY Hct 37.9 42.0 - 54.0 09/16/2016 [facility] HEMATOLOGY Hgb 12.5 14.0 - 18.0 09/16/2016 [facility] HEMATOLOGY RBC 4.49 4.70 - 6.10 09/16/2016 [facility] HEMATOLOGY WBC 8.0 3.7 - 10.4 09/16/2016 [facility] HEMATOLOGY RDW 14.4 11.5 - 14.5 09/16/2016 [facility] MCHC 33.1 32.0 - 36.0 09/16/2016 [facility] MPV 9.2 7.4 - 10.4 09/16/2016 [facility] HEMATOLOGY Platelet 213 133 - 450 09/16/2016 [facility] IMMUNOLOGY RPR Non Reactive (09/16/16 3:47 AM) Non Reactive 09/16/2016 [facility] LIPIDS Chol 167 <=199 mg/dL 09/16/2016 [facility] LIPIDS Trig 183 <=149 mg/dL 09/16/2016 [facility] LIPIDS VLDL 37 09/16/2016 [facility] LIPIDS LDL (Calculated) 92 <=99 mg/dL 09/16/2016 [facility] LIPIDS HDL 38 >=61 mg/dL 09/16/2016 [facility] LIPIDS CHD Risk 4.39 4.00 - 7.30 09/16/2016 [facility] SPECIAL CHEMISTRY Hgb A1C 5.9 <=5.6 % 09/16/2016 [facility] CARDIAC ENZYMES Total CK 74 12 - 191 09/16/2016 [facility] CARDIAC ENZYMES Troponin-I <0.02 0.00 - 0.40 09/16/2016 [facility] CARDIAC ENZYMES Troponin-I <0.02 0.00 - 0.40 09/15/2016 [facility] CARDIAC ENZYMES Total CK 51 12 - 191 09/15/2016 [facility] CARDIAC ENZYMES Total CK 53 12 - 191 09/15/2016 [facility] CARDIAC ENZYMES Troponin-I <0.02 0.00 - 0.40 09/15/2016 [facility] CHEM PANEL eGFR 42 09/15/2016 Result Comment: The eGFR is calculated [...] by the estimated BMI. [facility] CHEM PANEL Bili Total 0.6 0.2 - 1.3 09/15/2016 [facility] CHEM PANEL BUN 15 7 - 22 09/15/2016 [facility] CHEM PANEL Creatinine Lvl 1.60 0.50 - 1.40 09/15/2016 [facility] CHEM PANEL Sodium Lvl 141 135 - 145 09/15/2016 [facility] CHEM PANEL Potassium Lvl 3.4 3.5 - 5.1 09/15/2016 [facility] CHEM PANEL CO2 27 24 - 32 09/15/2016 [facility] CHEM PANEL Chloride Lvl 101 95 - 109 09/15/2016 [facility] CHEM PANEL Calcium Lvl 9.1 8.5 - 10.5 09/15/2016 [facility] CHEM PANEL Total Protein 7.2 6.4 - 8.4 09/15/2016 [facility] CHEM PANEL Glucose Lvl 180 70 - 99 09/15/2016 [facility] CHEM PANEL AST 11 0 - 37 09/15/2016 [facility] CHEM PANEL ALT 11 0 - 65 09/15/2016 [facility] CHEM PANEL Albumin Lvl 3.6 3.5 - 5.0 09/15/2016 [facility] CHEM PANEL Alk Phos 101 39 - 136 09/15/2016 [facility] CHEM PANEL Globulin 3.6 2.7 - 4.2 09/15/2016 [facility] CHEM PANEL AGAP 16.4 10.0 - 20.0 09/15/2016 [facility] CHEM PANEL B/C Ratio 9 6 - 25 09/15/2016 [facility] CHEM PANEL A/G Ratio 1.0 0.7 - 1.6 09/15/2016 [facility] HEMATOLOGY MPV 9.0 7.4 - 10.4 09/15/2016 [facility] HEMATOLOGY Platelet 259 133 - 450 09/15/2016 [facility] HEMATOLOGY Hct 41.9 42.0 - 54.0 09/15/2016 [facility] HEMATOLOGY MCV 84.3 80.0 - 94.0 09/15/2016 [facility] HEMATOLOGY MCH 27.8 27.0 - 31.0 09/15/2016 [facility] MCHC 33.0 32.0 - 36.0 09/15/2016 [facility] HEMATOLOGY RDW 14.3 11.5 - 14.5 09/15/2016 [facility] HEMATOLOGY WBC 10.6 3.7 - 10.4 09/15/2016 [facility] HEMATOLOGY RBC 4.97 4.70 - 6.10 09/15/2016 [facility] Hgb 13.8 14.0 - 18.0 09/15/2016 [facility] HEMATOLOGY Monocytes # 0.6 0.0 - 0.8 09/15/2016 [facility] HEMATOLOGY Eosinophils # 0.1 0.0 - 0.5 09/15/2016 [facility] HEMATOLOGY Basophils 0.3 0.0 - 1.0 09/15/2016 [facility] HEMATOLOGY Lymphocytes # 2.3 1.0 - 5.5 09/15/2016 [facility] HEMATOLOGY Segs-Bands # 7.6 1.5 - 8.1 09/15/2016 [facility] HEMATOLOGY Monocytes 5.4 2.0 - 12.0 09/15/2016 [facility] HEMATOLOGY Eosinophils 1.3 0.0 - 4.0 09/15/2016 [facility] HEMATOLOGY Segs 71.7 45.0 - 75.0 09/15/2016 [facility] HEMATOLOGY Lymphocytes 21.3 20.0 - 40.0 09/15/2016 [facility] HEMATOLOGY INR 0.97 0.85 - 1.17 09/15/2016 [facility] HEMATOLOGY PT 13.1 12.0 - 14.7 09/15/2016 [facility] HEMATOLOGY PTT 25.2 22.9 - 35.8 09/15/2016 [facility] CHEM PANEL Magnesium Lvl 2.1 1.8 - 2.4 09/23/2015 [facility] CHEM PANEL Phosphorus 3.1 2.5 - 4.5 09/23/2015 [facility] CHEM PANEL eGFR 84 09/23/2015 Result Comment: The eGFR is calculated [...] should be multiplied by the estimated BMI. [facility] CHEM PANEL Calcium Lvl 8.9 8.5 - 10.5 09/23/2015 [facility] CHEM PANEL CO2 32 24 - 32 09/23/2015 [facility] CHEM PANEL Chloride Lvl 105 95 - 109 09/23/2015 [facility] CHEM PANEL Glucose Lvl 90 70 - 99 09/23/2015 [facility] CHEM PANEL BUN 8 7 - 22 09/23/2015 [facility] CHEM PANEL Potassium Lvl 3.4 3.5 - 5.1 09/23/2015 [facility] CHEM PANEL Sodium Lvl 144 135 - 145 09/23/2015 [facility] CHEM PANEL Creatinine Lvl 0.90 0.50 - 1.40 09/23/2015 [facility] CHEM PANEL AGAP 10.4 10.0 - 20.0 09/23/2015 [facility] HEMATOLOGY MCHC 33.3 32.0 - 36.0 09/23/2015 [facility] HEMATOLOGY MPV 8.5 7.4 - 10.4 09/23/2015 [facility] HEMATOLOGY Platelet 260 133 - 450 09/23/2015 [facility] HEMATOLOGY RDW 14.2 11.5 - 14.5 09/23/2015 [facility] HEMATOLOGY WBC 6.5 3.7 - 10.4 09/23/2015 [facility] HEMATOLOGY MCV 90.2 80.0 - 94.0 09/23/2015 [facility] HEMATOLOGY Hct 39.2 42.0 - 54.0 09/23/2015 [facility] HEMATOLOGY MCH 30.0 27.0 - 31.0 09/23/2015 [facility] HEMATOLOGY RBC 4.35 4.70 - 6.10 09/23/2015 [facility] HEMATOLOGY Hgb 13.1 14.0 - 18.0 09/23/2015 [facility] HEMATOLOGY Basophils 0.4 0.0 - 1.0 09/23/2015 [facility] HEMATOLOGY Segs-Bands # 3.6 1.5 - 8.1 09/23/2015 [facility] HEMATOLOGY Monocytes # 0.6 0.0 - 0.8 09/23/2015 [facility] HEMATOLOGY Lymphocytes # 2.1 1.0 - 5.5 09/23/2015 [facility] HEMATOLOGY Eosinophils # 0.2 0.0 - 0.5 09/23/2015 [facility] HEMATOLOGY Eosinophils 2.5 0.0 - 4.0 09/23/2015 [facility] HEMATOLOGY Monocytes 9.2 2.0 - 12.0 09/23/2015 [facility] HEMATOLOGY Lymphocytes 32.3 20.0 - 40.0 09/23/2015 [facility] HEMATOLOGY Segs 55.6 45.0 - 75.0 09/23/2015 [facility] PARATHYROID PROFILE Ca Ion WB 1.05 1.05 - 1.25 09/23/2015 [facility] PARATHYROID PROFILE Ca Norm WB 1.08 1.05 - 1.25 09/23/2015 [facility] CARDIAC ENZYMES Troponin-I 0.04 0.00 - 0.40 09/21/2015 [facility] CHEM PANEL A/G Ratio 1.0 0.7 - 1.6 09/21/2015 [facility] CHEM PANEL B/C Ratio 9 6 - 25 09/21/2015 [facility] CHEM PANEL Globulin 3.7 2.0 - 4.0 09/21/2015 [facility] CHEM PANEL AGAP 11.1 10.0 - 20.0 09/21/2015 [facility] CHEM PANEL eGFR 55 09/21/2015 Result Comment: The eGFR is calculated [...] should be multiplied by the estimated BMI. [facility] CHEM PANEL Alk Phos 74 39 - 136 09/21/2015 [facility] CHEM PANEL Bili Total 0.4 0.2 - 1.3 09/21/2015 [facility] CHEM PANEL Chloride Lvl 98 95 - 109 09/21/2015 [facility] CHEM PANEL Potassium Lvl 3.1 3.5 - 5.1 09/21/2015 [facility] CHEM PANEL Sodium Lvl 139 135 - 145 09/21/2015 [facility] CHEM PANEL BUN 12 7 - 22 09/21/2015 [facility] CHEM PANEL Glucose Lvl 105 70 - 99 09/21/2015 [facility] CHEM PANEL Creatinine Lvl 1.29 0.50 - 1.40 09/21/2015 [facility] CHEM PANEL Calcium Lvl 9.2 8.5 - 10.5 09/21/2015 [facility] CHEM PANEL AST 20 0 - 37 09/21/2015 [facility] CHEM PANEL ALT 24 0 - 65 09/21/2015 [facility] CHEM PANEL Albumin Lvl 3.8 3.5 - 5.0 09/21/2015 [facility] CHEM PANEL CO2 33 24 - 32 09/21/2015 [facility] CHEM PANEL Total Protein 7.5 6.4 - 8.4 09/21/2015 [facility] HEMATOLOGY INR 1.00 0.85 - 1.17 09/21/2015 [facility] HEMATOLOGY PTT 30.0 22.9 - 35.8 09/21/2015 [facility] HEMATOLOGY PT 13.5 12.0 - 14.7 09/21/2015 [facility] HEMATOLOGY Platelet 255 133 - 450 09/21/2015 [facility] HEMATOLOGY MPV 8.4 7.4 - 10.4 09/21/2015 [facility] HEMATOLOGY MCHC 32.3 32.0 - 36.0 09/21/2015 [facility] HEMATOLOGY RDW 14.5 11.5 - 14.5 09/21/2015 [facility] HEMATOLOGY MCH 28.7 27.0 - 31.0 09/21/2015 [facility] HEMATOLOGY MCV 88.9 80.0 - 94.0 09/21/2015 [facility] HEMATOLOGY Hgb 13.3 14.0 - 18.0 09/21/2015 [facility] HEMATOLOGY Hct 41.2 42.0 - 54.0 09/21/2015 [facility] WBC 9.0 3.7 - 10.4 09/21/2015 [facility] RBC 4.64 4.70 - 6.10 09/21/2015 [facility] HEMATOLOGY Monocytes # 0.7 0.0 - 0.8 09/21/2015 [facility] HEMATOLOGY Eosinophils # 0.1 0.0 - 0.5 09/21/2015 [facility] HEMATOLOGY Monocytes 8.1 2.0 - 12.0 09/21/2015 [facility] HEMATOLOGY Eosinophils 1.3 0.0 - 4.0 09/21/2015 [facility] Segs-Bands # 6.2 1.5 - 8.1 09/21/2015 [facility] Basophils 0.2 0.0 - 1.0 09/21/2015 [facility] Lymphocytes # 1.9 1.0 - 5.5 09/21/2015 [facility] Lymphocytes 20.8 20.0 - 40.0 09/21/2015 [facility] Segs 69.6 45.0 - 75.0 09/21/2015 [facility] ELECTROLYTES AGAP 10.3 10.0 - 20.0 04/10/2014 [facility] ELECTROLYTES Sodium Lvl 136 135 - 145 04/10/2014 [facility] ELECTROLYTES Potassium Lvl 4.3 3.5 - 5.1 04/10/2014 [facility] ELECTROLYTES CO2 31 24 - 32 04/10/2014 [facility] ELECTROLYTES Chloride Lvl 99 95 - 109 04/10/2014 [facility] HEMATOLOGY Hgb 13.3 14.0 - 18.0 04/10/2014 [facility] HEMATOLOGY Hct 41.2 42.0 - 54.0 04/10/2014 [facility] Pathology Reports No Data Provided for This Section Diagnostic Reports Report Value Date Source Chest 1view DX Patient Name: FUAD REAZO : 1940; Age: 77 years Male MR: [id number] Study: Chest 1view DX Order Time: 06/01/2017 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 COMPARISON: October 2016 [...] dmitri. IMPRESSION: Left lower lobe atelectasis. SL: [id number] 06/01/2017 [facility] Pelvis AP DX 1 VIEW PELVIS HISTORY: Patient fell. Pain. COMPARISON: No relevant priors available. Evidence of prior lower lumbar spine surgery. The bony pelvis is intact without fracture or dislocation. SI joints appear normal. IMPRESSION: Previous lumbar spine surgery otherwise normal exam. END REPORT SL: [id number] 06/01/2017 [facility] Spine cervical wo contrast CT PROCEDURE: CT cervical spine without contrast. Reconstruction images. INDICATION: Patient's family reports that patient fell at unknown time in the bathroom. Patient denies hitting the head. Patient denies loss of consciousness. Patient felt the right side. TECHNIQUE: Multi-detector CT imaging of the cervical spine is performed. Coronal and sagittal reconstructions were obtained. Total CT radiation dose: VAY=897.90 mGy-cm COMPARISON: CT neck soft tissue dated [...] 2 anterior spondylolisthesis at C4-C5 level. SL: [id number] 06/01/2017 [facility] Brain wo contrast CT EXAM: Brain wo [...] assessment if clinically appropriate. SL: CHANTELL 06/01/2017 [facility] Chest/Abdomen/Pelvis wo IV contrast CT EXAM: CT [...] T1-T2; clinically correlate to exclude discitis/osteomyelitis. SL: [id number] 06/01/2017 [facility] Esophagus BA swallow function video DX Patient Name: FUAD ERAZO : 1940; Age: 76 years Male MR: [id number] Study: Esophagus BA swallow function video DX Order Time: 12/01/2016 11:27 AM CDT CLINICAL INDICATION: History of right carotid endarterectomy COMPARISON: None. FLUOROSCOPY TIME: 1.1min, Total DAP: 4.85mGy TECHNIQUE: Fluoroscopic assistance was provided for the speech pathologist for modified barium swallow examination. Varying consistencies of barium were administered po. FINDINGS: Thin consistency barium: Deep penetration observed with cough. No significant aspiration. [place] consistency barium: No aspiration or any significant laryngeal penetration. Pudding coated barium: No aspiration or any significant laryngeal penetration. Barium with cracker preparation: No aspiration or any significant laryngeal penetration. IMPRESSION: Refer to speech pathology report for full details. SL: [id number] 12/01/2016 [facility] Esophagus BA swallow function video DX [...] complete details. FT: About 0.8 minute. SL: [id number] 11/27/2016 [facility] Chest 1view DX Patient Name: FUAD ERAZO : 1940; Age: 76 years Male MR: [id number] Study: Chest 1view DX Order Time: 11/24/2016 [...] lower lobe atelectasis. Enlarged cardiac silhouette. SL: [id number] 11/24/2016 [facility] Neck soft tissue w contrast CT [...] of the airway in these regions. SL: [id number] 11/23/2016 [facility] Brain wo contrast CT Brain wo [...] MRI of brain as clinically indicated. SL: [id number] 11/19/2016 [facility] 1view DX Patient Name: FUAD ERAZO : 1940; Age: 76 years y/o Male MR: [id number] * CHEST, portable, 1 view HISTORY: Dyspnea [...] pacemaker. 3. Postoperative changes, cervical spine. SL: [id number] 11/19/2016 [facility] 1view DX Patient Name: FUAD ERAZO : 1940; Age: 76 years y/o Male MR: [id number] * CHEST, portable, 1 view HISTORY: Dyspnea [...] pacemaker. 3. Postoperative changes, cervical spine. 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 COMPARISON: 11/05/2016. TECHNIQUE: Sequential trans-axial images [...] origin of the right vertebral artery. SL: [id number]. 11/12/2016 [facility] Brain Stroke wo contrast CT Addendum: Agree with the above report. 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 Deng. SL: [id number] 11/12/2016 [facility] 1view DX Chest 1view DX 76 years [...] 1. Pacemaker. 2. Otherwise negative chest. SL: [id number] 11/10/2016 [facility] 1view DX Patient Name: FUAD ERAZO : 1940; Age: 76 years y/o Male MR: [id number] Study: Chest 1view DX 11/07/2016 9:43 AM [...] IMPRESSION: No new or acute findings. SL: [id number] 11/07/2016 [facility] Brain/Neck CTA CTA HEAD AND NECK: HISTORY: [...] There is no other significant vertebrobasilar disease. [id number] 11/05/2016 [facility] contrast CT CT BRAIN WITHOUT CONTRAST INDICATION: [...] acute intracranial abnormalities are visualized. SL:16 11/04/2016 [facility] Chest 1view DX Study: Frontal chest x-ray compared to 10/07/2016. History: Syncope Comments: The trachea is midline. The cardiomediastinal silhouette is normal in size. Left chest wall pacemaker in place. No pneumonia. No pleural effusions or pneumothorax. Impression: No acute cardiopulmonary disease. 11/04/2016 [facility] contrast CT Addendum: I agree with the [...] cells are clear. IMPRESSION: No acute finding. SL: [id number] 10/07/2016 [facility] 1view DX Portable chest: The left subclavian pacemaker lead is in satisfactory position. The cardiac silhouette and pulmonary vasculature are within normal limits. The lungs and pleural spaces are clear. There is no significant change compared to 09/15/2016. IMPRESSION: No acute radiographic abnormality in the chest. DLAWRENCE-PC 10/07/2016 [facility] contrast CT Patient Name: FUAD ERAZO : 1940; Age: 76 years y/o Male MR: [id number] Study: Brain wo contrast CT 09/15/2016 11:24 [...] intracranially similar to the previous exam. : [id number] 09/15/2016 [facility] Chest 1view DX Portable chest: The left subclavian pacemaker lead is in satisfactory position. There is mild calcification in the aortic arch. The cardiomediastinal silhouette, pulmonary vasculature and pay[place] are other cook within normal limits. The lungs and pleural spaces are clear. There are no acute osseous abnormalities. There is no significant change compared to 09/23/2015. IMPRESSION: No acute radiographic abnormalities in the chest. [id number] 09/15/2016 [facility] Spine lumbar myelogram CT EXAM: CT MYELOGRAM [...] visible on a previous lung x-ray. 10/18/2015 [facility] Spine thoracic myelogram CT EXAM: CT MYELOGRAM [...] visible on a previous lung x-ray. 10/18/2015 [facility] Spine cervical myelogram CT EXAM: CT MYELOGRAM [...] sclerosis and diffuse endplate osteophytes (spondylosis). 10/18/2015 [facility] Spine myelogram complete DX EXAM: FLUOROSCOPY-GUIDED LUMBAR PUNCTURE FOR CT MYELOGRAM DATE: 10/18/2015 at 0827 hours INDICATION: Radiculopathy COMPARISON: None PROCEDURE: An interlaminar lumbar puncture was carried out under fluoroscopic guidance with a 22 gauge 3.5' long spinal Quincke needle at the level [...] the cervical, thoracic and lumbar spine. 10/18/2015 [facility] Chest 1view DX EXAM: XR CHEST 1 [...] surgical changes of the cervical spine. 09/23/2015 [facility] Spine cervical wo contrast CT EXAM: CT [...] the subjacent cervical and thoracic spine. 09/22/2015 [facility] Spine lumbar wo contrast CT EXAM: CT [...] disc disease at L1-L2 and L3-L4. 09/22/2015 [facility] Brain wo contrast CT EXAM: CT BRAIN [...] subcortical hemorrhage. No new intracranial abnormality. 09/22/2015 [facility] Brain wo contrast CT Brain wo contrast [...] ischemic changes with diffuse volume loss. SL: [id number] 09/21/2015 [facility] Ribs unilateral 3 views w PA chest DX Patient Name: FUAD ERAZO : 1940; Age: 75 years y/o Male MR: [id number] Study: Ribs unilateral 3 views w PA [...] with subsegmental atelectasis and/or fibrotic scarring. SL: [id number] 09/21/2015 [facility] Consultation Notes No Data Provided for This Section Discharge Summaries No Data Provided for This Section History and Physicals No Data Provided for This Section Vital Signs Vital Sign Value Date Comments Source BMI Calculated 21.94 08/05/2018 [facility] Weight 65.455 08/05/2018 [facility] Height 172.72 cm 08/05/2018 [facility] Temperature Oral (F) 97.2 F 08/05/2018 [facility] Heart Rate 83 08/05/2018 [facility] Respitory Rate 16 08/05/2018 [facility] Systolic (mm Hg) 159 08/05/2018 [facility] Diastolic (mm Hg) 92 08/05/2018 [facility] BMI Calculated 22.17 05/05/2018 [facility] Weight 66.136 05/05/2018 [facility] Heart Rate 62 05/05/2018 [facility] Respitory Rate 16 05/05/2018 [facility] Temperature Oral (F) 97.1 F 05/05/2018 [facility] Systolic (mm Hg) 152 05/05/2018 [facility] Diastolic (mm Hg) 84 05/05/2018 [facility] Height 172.72 cm 05/05/2018 [facility] Temperature Oral (F) 96.6 F 03/05/2018 [facility] Respitory Rate 14 03/05/2018 [facility] Heart Rate 65 03/05/2018 [facility] Systolic (mm Hg) 110 03/05/2018 [facility] Height 172.72 cm 03/05/2018 [facility] BMI Calculated 21.1 03/05/2018 [facility] Weight 62.955 03/05/2018 [facility] BMI Calculated 23.49 02/10/2018 [facility] [...] [facility] Systolic (mm Hg) 110 01/14/2018 [facility] Diastolic (mm Hg) 74 01/14/2018 [...] Group Temperature Oral (F) 98.5 F 06/02/2017 [facility] Heart Rate 67 06/02/2017 [facility] Respitory Rate 18 06/02/2017 [facility] Systolic (mm Hg) 138 06/02/2017 [facility] Diastolic (mm Hg) 70 06/02/2017 [facility] Heart Rate 65 06/02/2017 [facility] Systolic (mm Hg) 118 06/02/2017 [facility] Diastolic (mm Hg) 68 06/02/2017 [facility] Respitory Rate 16 06/02/2017 [facility] Temperature Oral (F) 97.8 F 06/02/2017 [facility] Systolic (mm Hg) 168 06/02/2017 [facility] Diastolic (mm Hg) 89 06/02/2017 [facility] Respitory Rate 15 06/02/2017 [facility] Heart Rate 64 06/02/2017 [facility] Temperature Oral (F) 97.8 F 06/02/2017 [facility] Weight 73.545 06/01/2017 [facility] Height 170.18 cm 06/01/2017 [facility] Weight 68.182 06/01/2017 [facility] BMI Calculated 23.54 06/01/2017 [facility] Weight 79.545 06/01/2017 [facility] Height 167.64 cm 06/01/2017 [facility] BMI Calculated 28.3 06/01/2017 [facility] Systolic (mm Hg) 134 12/04/2016 [facility] Diastolic (mm Hg) 76 12/04/2016 [facility] Respitory Rate 18 12/04/2016 [facility] Temperature Oral (F) 98 F 12/04/2016 [facility] Heart Rate 59 12/04/2016 [facility] Temperature Oral (F) 97.6 F 12/04/2016 [facility] Heart Rate 70 12/04/2016 [facility] Systolic (mm Hg) 98 12/04/2016 [facility] Diastolic (mm Hg) 62 12/04/2016 [facility] Respitory Rate 18 12/04/2016 [facility] Respitory Rate 18 12/04/2016 [facility] Systolic (mm Hg) 112 12/04/2016 [facility] Diastolic (mm Hg) 66 12/04/2016 [facility] Temperature Oral (F) 97.9 F 12/04/2016 [facility] Heart Rate 57 12/04/2016 [facility] Weight 66.051 11/11/2016 [facility] Weight 65.909 11/05/2016 [facility] Height 172.72 cm 11/05/2016 [facility] BMI Calculated 22.09 11/05/2016 [facility] BMI Calculated 22.2 11/04/2016 [facility] Height 175.26 cm 11/04/2016 [facility] Weight 68.182 11/04/2016 [facility] Respitory Rate 17 10/09/2016 [facility] Temperature Oral (F) 99.4 F 10/09/2016 [facility] Heart Rate 87 10/09/2016 [facility] Systolic (mm Hg) 152 10/09/2016 [facility] Diastolic (mm Hg) 76 10/09/2016 [facility] Temperature Oral (F) 98.4 F 10/08/2016 [facility] Heart Rate 88 10/08/2016 [facility] Respitory Rate 18 10/08/2016 [facility] Systolic (mm Hg) 154 10/08/2016 [facility] Diastolic (mm Hg) 89 10/08/2016 [facility] Systolic (mm Hg) 116 10/08/2016 [facility] Diastolic (mm Hg) 72 10/08/2016 [facility] Heart Rate 72 10/08/2016 [facility] Respitory Rate 18 10/08/2016 [facility] Temperature Oral (F) 98 F 10/08/2016 [facility] Height 172.72 cm 10/08/2016 [facility] Weight 81.818 10/08/2016 [facility] BMI Calculated 27.43 10/08/2016 [facility] Weight 81.818 10/07/2016 [facility] BMI Calculated 27.43 10/07/2016 [facility] Height 172.72 cm 10/07/2016 [facility] Systolic (mm Hg) 149 09/16/2016 [facility] Diastolic (mm Hg) 70 09/16/2016 [facility] Respitory Rate 16 09/16/2016 [facility] Heart Rate 65 09/16/2016 [facility] Temperature Oral (F) 98.6 F 09/16/2016 [facility] Temperature Oral (F) 98.2 F 09/16/2016 [facility] Heart Rate 64 09/16/2016 [facility] Systolic (mm Hg) 163 09/16/2016 [facility] Diastolic (mm Hg) 79 09/16/2016 [facility] Respitory Rate 16 09/16/2016 [facility] Heart Rate 71 09/16/2016 [facility] Temperature Oral (F) 98.4 F 09/16/2016 [facility] Systolic (mm Hg) 126 09/16/2016 [facility] Diastolic (mm Hg) 68 09/16/2016 [facility] Respitory Rate 16 09/16/2016 [facility] Weight 81.818 09/15/2016 [facility] BMI Calculated 27.43 09/15/2016 [facility] Weight 81.818 09/15/2016 [facility] Height 172.72 cm 09/15/2016 [facility] Respitory Rate 20 09/23/2015 [facility] Respitory Rate 20 09/23/2015 [facility] Respitory Rate 26 09/23/2015 [facility] Systolic (mm Hg) 144 09/23/2015 [facility] Diastolic (mm Hg) 74 09/23/2015 [facility] Systolic (mm Hg) 144 09/23/2015 [facility] Diastolic (mm Hg) 74 09/23/2015 [facility] Systolic (mm Hg) 133 09/23/2015 [facility] Diastolic (mm Hg) 56 09/23/2015 [facility] Temperature Oral (F) 97.6 F 09/23/2015 [facility] Temperature Oral (F) 97.6 F 09/23/2015 [facility] Height 172.72 cm 09/23/2015 [facility] BMI Calculated 26.48 09/23/2015 [facility] Weight 79 09/23/2015 [facility] Temperature Oral (F) 97.0 F 09/22/2015 [facility] Heart Rate 63 09/22/2015 [facility] Heart Rate 69 09/22/2015 [facility] Heart Rate 73 09/22/2015 [facility] Weight 79.545 09/22/2015 [facility] Temperature Oral (F) 98.2 F 09/22/2015 [facility] Heart Rate 62 09/22/2015 [facility] Resp[facility] Rate 20 09/22/2015 [facility] Systolic (mm Hg) 156 09/22/2015 [facility] Diastolic (mm Hg) 79 09/22/2015 [facility] Respitory Rate 18 09/21/2015 [facility] Temperature Oral (F) 98.4 F 09/21/2015 [facility] Heart Rate 59 09/21/2015 [facility] Systolic (mm Hg) 163 09/21/2015 [facility] Diastolic (mm Hg) 89 09/21/2015 [facility] Systolic (mm Hg) 195 09/21/2015 [facility] Diastolic (mm Hg) 95 09/21/2015 [facility] Heart Rate 75 09/21/2015 [facility] Temperature Oral (F) 98.2 F 09/21/2015 [facility] Height 172.72 cm 09/21/2015 [facility] BMI Calculated 27.43 09/21/2015 [facility] Weight 81.818 09/21/2015 [facility] Respitory Rate [...] 18 04/14/2014 [facility] Heart Rate 80 04/10/2014 [facility] Temperature Oral (F) 97.9 F 04/10/2014 [facility] Weight 75.909 04/10/2014 [facility] Height 172.72 cm 04/10/2014 [facility] BMI Calculated 25.45 04/10/2014 [facility] Encounters Location Location Details Encounter Type Encounter Number Reason For Visit Attending Provider ADM Date DC Date Status Source [facility] Bedded Outpatient [id number] Phong De La OBety 04/14/2014 04/14/2014 [facility] Outpatient [id number] DIMITRI VALDERRAMA 02/16/2015 [facility] [id number] [facility] 05/23/2015 Active [facility] Outpatient [id number] NURSE VISIT 06/07/2015 Active [facility] Outpatient [id number] DIMITRI VALDERRAMA 08/03/2015 Active [facility] [id number] Humberto Raheem 09/21/2015 09/22/2015 [facility] OBS Observation Patient [id number] Tom Mace 09/22/2015 09/23/2015 [facility] Outpatient [id number] [facility] 10/04/2015 Active [facility] Outpatient [id number] Ish Manzo 10/18/2015 10/19/2015 [facility] Outpatient [id number] ISH MANZO 10/18/2015 Active [facility] [id number] ISH MANZO 10/18/2015 Active [facility] [id number] [facility] 10/18/2015 [facility] Outpatient [id number] DIMITRI VALDERRAMA 11/23/2015 Active [facility] Outpatient [id number] DIMITRI VALDERRAMA 12/10/2015 Active [facility] Outpatient [id number] DIMITRI VALDERRAMA 03/17/2016 [facility] [id number] [facility] 03/26/2016 [facility] [id number] DIMITRI VALDERRAMA 04/24/2016 Active [facility] Outpatient [id number] DIMITRI VALDERRAMA 05/21/2016 Active [facility] Outpatient [id number] DIMITRI VALDERRAMA 06/04/2016 [facility] [id number] DIMITRI VALDERRAMA 06/04/2016 [facility] [id number] DIMITRI VALDERRAMA 09/02/2016 Active [facility] Observation [id number] Tor Echols 09/15/2016 09/16/[address] [facility] Observation [id number] Tor Echols 10/07/2016 10/09/2016 [facility] Outpatient [id number] DIMITRIElla HUFFMANO 10/16/2016 Active [facility] Inpatient [id number] Tor Echols 11/04/2016 12/04/2016 [facility] Outpatient [id number] DIMITRI VALDERRAMA 04/06/2017 Active [facility] Outpatient [id number] DIMITRI VALDERRAMA 04/28/2017 Active [facility] Observation [id number] Tor Echols 06/01/2017 06/02/2017 [facility] Phone Message [id number] 06/11/2017 06/13/2017 [facility] Outpatient [id number] DIMITRI VALDERRAMA 07/29/2017 Active [facility] Primary [facility] Ambulatory Pre-Reg [id number] Dimitri Valderrama 07/29/2017 07/29/2017 [facility] Outpatient [id number] DEANNA MILIAN 09/18/2017 Active [facility] Primary Care [facility] Outpatient [id number] Deanna Milian 09/18/2017 09/19/2017 [facility] Phone Message [id number] 09/30/2017 10/02/2017 [facility] Outpatient [id number] DIMITRI VALDERRAMA 10/06/2017 Active [facility] Primary Care [facility] Outpatient [id number] Dimitri Valderrama 10/06/2017 10/07/2017 [facility] Phone Message [id number] 10/20/2017 10/22/2017 [facility] Phone Message [id number] 10/30/2017 11/01/2017 [facility] Phone Message [id number] 11/10/2017 11/12/2017 [facility] Phone Message [id number] 11/17/2017 11/19/2017 [facility] Phone Message [id number] 12/10/2017 12/12/2017 [facility] Phone Message [id number] 01/09/2018 01/11/2018 [facility] Phone Message [id number] 01/11/2018 01/13/2018 [facility] Outpatient [id number] DIMITRI VALDERRAMA 01/14/2018 [facility] Outpatient [id number] Dimitri Valderrama 01/14/2018 01/15/2018 [facility] Phone Message [id number] 01/17/2018 01/18/2018 [facility] Outpatient [id number] DIMITRI VALDERRAMA 02/10/2018 Active [facility] Outpatient [id number] Dimitri Valderrama 02/10/2018 02/11/2018 [facility] Outpatient [id number] DEANNA MILIAN 03/05/2018 Active [facility] Outpatient [id number] Deanna Milian 03/05/2018 03/06/2018 [facility] Phone Message [id number] 03/14/2018 03/15/2018 [facility] Phone Message [id number] 03/19/2018 03/21/2018 [facility] Outpatient [id number] DIMITRI VALDERRAMA 03/19/2018 [facility] Primary Care [facility] Ambulatory Pre-Reg [id number] Dimitri Valderrama 03/19/2018 03/19/2018 [facility] Phone Message [id number] 03/19/2018 03/21/2018 [facility] Phone Message [id number] 04/11/2018 04/12/2018 [facility] Outpatient [id number] DIMITRI VALDERRAMA 05/05/2018 Active [facility] Outpatient [id number] Dimitri Valderrama 05/05/2018 05/06/2018 [facility] Phone Message [id number] 06/17/2018 06/19/2018 [facility] Outpatient [id number] DIMITRI VALDERRAMA 08/05/2018 Active [facility] Outpatient [id number] Dimitri Valderrama 08/05/2018 08/06/2018 [facility] Phone Message [id number] 08/10/2018 08/12/2018 [facility] Phone Message [id number] 08/27/2018 08/29/2018 [facility] Phone Message [id number] 09/30/2018 10/02/2018 [facility] Phone Message [id number] 10/07/2018 10/09/2018 [facility] Phone Message [id number] 10/27/2018 10/28/2018 Medical [facility] Phone Message [id number] 12/04/2018 12/06/2018 [facility] Outpatient [id number] Dimitri Valderrama 01/27/2019 [facility] Procedures Procedure Code Date Perfomer Comments Source Influenza vaccination [id number] 05/05/2018 [facility] Esophagogastroduodenoscopy<sup>1</sup> [id number] 04/28/2018 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 POSTOPERATIVE DIAGNOSIS: Recurrent right carotid artery stenosis. OPERATION: Redo right carotid endarterectomy with bovine pericardial patch angioplasty, completion of the ultrasound exam. [facility] Angioplasty of carotid artery<sup>2</sup> [id number] 11/17/2016 PREOPERATIVE DIAGNOSIS: Recurrent right carotid artery stenosis. POSTOPERATIVE DIAGNOSIS: Recurrent right carotid artery stenosis. OPERATION: Redo right carotid endarterectomy with bovine pericardial patch angioplasty, completion of the ultrasound exam. [facility] Myelography via lumbar injection, including radiological supervision and interpretation; 2 or more regions (eg, lumbar/thoracic, cervical/thoracic, lumbar/cervical, lumbar/thoracic/cervical) [id number] 10/18/2015 [facility] Pneumococcal vaccination<sup>4</sup> [id number] 11/11/2013 Pneumovax [facility] Pneumococcal vaccination<sup>3</sup> [id number] 11/11/2013 Pneumovax [facility] Bilateral replacement of knee joints [id number] [facility] Carotid endarterectomy<sup>1</sup> 16894150 Right carotid artery [facility] Implantation of cardiac pacemaker 389835280 [facility] Insertion of chest tube<sup>2</sup> [id number] due to pleural effusion [facility] PTCA - Percutaneous transluminal coronary angioplasty 44079905 [facility] Surgical procedure on cervical spine [id number] [facility] Bilateral replacement of knee joints 600087972 [facility] Carotid endarterectomy<sup>1</sup> 16499012 Right carotid artery [facility] Implantation of cardiac pacemaker 211115670 [facility] Insertion of chest tube<sup>2</sup> [id number] due to pleural effusion [facility] PTCA - Percutaneous transluminal coronary angioplasty [id number] [facility] Surgical procedure on cervical spine [id number] [facility] Cardiac pacemaker procedure 814549066 [facility] Joint replacement 74720924 [facility] Lumbar discectomy 212590814 [facility] Operation 595118311 [facility] Stent placement<sup>1</sup> [id number] 1x2 [facility] Bilateral replacement of knee joints 619451278 [facility] Implantation of cardiac pacemaker 266363066 [facility] Insertion of chest tube<sup>5</sup> [id number] due to pleural effusion [facility] PTCA - Percutaneous transluminal coronary angioplasty 41490714 [facility] Surgical procedure on cervical spine 545606648 [facility] Carotid endarterectomy<sup>1</sup> 05328980 Right carotid artery [facility] Insertion of chest tube<sup>2</sup> [id number] due to pleural effusion [facility] Insertion of chest tube<sup>4</sup> [id number] due to pleural effusion [facility] Assessment and Plan Assessment and Plan Date Source Extracted from:Title: Clinical Document Author: Castillo Patel MD Date: 12/04/16 Progress Note Cardiology [facility] Impression: CAD remote hx [...] cp or sob, no palpitations Objective: Telemetry Vitals Tmp(F) Pulse BP RR SpO2 FIO2 12/04 08:02 97.6 70 98/62 18 97 --- 12/04 04:00 97.9 57 112/66 18 97 --- 12/04 00:00 97.9 59 125/61 18 96 --- 12/03 20:00 97.5 61 107/63 18 96 --- 12/03 16:00 97.5 62 118/65 16 96 --- 24 Hr Tmax: 97.9F (36.61c) at 12/04 04:00 Vital Signs are the last 5 in the past 48 hours. HEENT: Neck Supple, right cervical surgical wound CVS: Regular rate, Normal S1S2 LUNGS: decreased BS ABD: Soft, Non-tender, + BS + peg EXT: No ankle edema, palpable distal pulses Skin: No ulcers Neuro: Grossly non-focal Labs (Last four charted values) WBC 9.3 (NOV 30) 9.8 (NOV 28) 9.7 (NOV 27) H 12.1 (NOV 27) Hgb L 9.4 (NOV 30) L 9.9 (NOV 28) L 7.2 (NOV 27) L 7.2 (NOV 27) Hct L 28.8 (NOV 30) L 29.6 (NOV 28) L 22.3 (NOV 27) L 22.2 (NOV 27) Plt 439 (NOV 30) 422 (NOV 02) 444 (NOV 27) 447 (NOV 27) Na 139 (NOV 30) 139 (NOV 28) 138 (NOV 27) 140 (NOVEMBER 25) K H 5.2 (NOV 30) 3.7 (NOV 28) L 3.3 (NOV 27) L 3.2 (NOVEMBER 26) CO2 H 33 (NOV 30) 32 (NOV 02) H 33 (NOV 27) 29 (NOVEMBER 25) Cl 98 (NOV 04) 98 (NOV 02) 98 (NOV 27) 103 (NOVEMBER 25) Cr 0.79 (NOV 30) 0.62 (NOV 28) 0.58 (NOV 27) 0.61 (NOVEMBER 25) BUN H 24 (NOV 30) 17 (NOV 28) 17 (NOV 27) 20 (NOVEMBER 25) Glucose Random H 144 (NOV 30) H 151 (NOV 28) H 145 (NOV 27) H 151 (NOVEMBER 25) Mg 1.9 (NOV 28) L 1.6 (NOVEMBER 26) L 1.7 (NOVEMBER 25) L 1.6 (NOVEMBER 25) Phos 2.8 (NOVEMBER 26) C 1.4 (NOVEMBER 25) L 2.2 (NOVEMBER 25) 2.6 (NOVEMBER 05) Ca 9.2 (NOV 30) 9.0 (NOV 28) L 8.3 (NOV 27) 9.1 (NOVEMBER 25) PT 13.9 (NOVEMBER 23) 13.3 (NOVEMBER 14) 14.0 (NOVEMBER 10) 13.2 (NOVEMBER 04) INR 1.05 (NOVEMBER 23) 0.99 (NOVEMBER 14) 1.06 (NOVEMBER 10) 0.98 (NOVEMBER 04) PTT 23.7 (NOVEMBER 23) 30.5 (NOVEMBER 14) H 35.9 (NOVEMBER 10) 27.5 (NOVEMBER 04) Troponin 0.04 (NOVEMBER 25) <0.02 (NOVEMBER 05) <0.02 (NOVEMBER 05) <0.02 (NOVEMBER 04) CK MB 1.2 (NOVEMBER 05) 1.4 (NOVEMBER 05) 1.6 (NOVEMBER 04) Total CK 88 (NOVEMBER 05) 91 (NOVEMBER 05) 118 (NOVEMBER 04) Scheduled Meds (10): 11/05/16 DULoxetine (Cymbalta) [...] INJ 250 mL 250 mL 50 ml/hr 12/04/2016 [facility] Extracted from:Title: Clinical Document Author: Megha Mayfield MD Date: [...] , BS + Ext : no edema PIPE [employer]INK[employer] SYSTEMS: No gross motor/sensory defects Vitals Tmp(F) Tmp(C) Ttype BP MAP Pulse RR SpO2 FIO2 ETCO2 09/16 07:44 98.6 37.00 oral 149/70 --- 65 16 93 --- --- 09/16 04:00 98.2 36.78 oral 163/79 --- 64 16 97 --- --- 09/16 00:00 98.4 36.89 oral 126/68 --- 71 16 --- --- --- 09/15 20:00 98.1 36.72 oral 150/70 --- 67 16 93 --- --- 09/15 16:00 98.2 36.78 oral 126/72 --- 67 18 97 --- --- 24 Hr Tmax: 98.6F (37.00c) at 09/16 07:44 Vital Signs are the last 5 in the past 48 hours. 24 Hr Tmin: 98.1F (36.72c) at 09/15 20:00 Weights are the last 5 in 60 days, plus initial. Date Wt(kg) Wt(lb) Ht(cm) Ht(in) Method BMI 09/15 (initial) 81.82 180.00 172.72 68.00 Measured 27.4 Most Recent Scores: 09/16/16 Gallardo Maya Fall Score 10 09/16/16 Pain Intensity NRS (0-10) 0 09/15/16 [place] Score 19 09/15/16 [place] Coma Score 15 09/15/16 NIH Stroke Score 0 Lines, Tubes, and Drains: 09/15/2016 20:00 Peripheral Lines: Forearm Right Over the needle catheter (no surgical procedures documented) I&O Record In Out Bal 09/16 24hr Tot 0 0 0 09/15 24hr Tot [phone] 24hr Labs 09/16 0347 Chol 167 Trig 183 H HDL 38 L LDL (Calculated) 92 VLDL 37 CHD Risk 4.39 Sodium Lvl 144 Potassium Lvl 3.8 Chloride Lvl 105 CO2 33 H AGAP 9.8 L Glucose Lvl 102 H Creatinine Lvl 1.20 BUN 10 B/C Ratio 8 Total Protein 6.7 Albumin Lvl 3.2 L Globulin 3.5 A/G Ratio 0.9 Calcium Lvl 8.8 ALT 11 AST 12 Alk Phos 88 Bili Total 0.5 eGFR 59 TSH 1.150 Hgb A1C 5.9 H WBC 8.0 RBC 4.49 L Hgb 12.5 L Hct 37.9 L MCV 84.5 MCH 27.9 MCHC 33.1 RDW 14.4 Platelet 213 MPV 9.2 Segs 65.1 Monocytes 8.2 Lymphocytes 24.4 Eosinophils 2.1 Basophils 0.2 Segs-Bands # 5.2 Lymphocytes # 2.0 Monocytes # 0.7 Eosinophils # 0.2 09/15 2322 Total CK 74 Troponin-I <0.02 09/15 1740 Total CK 51 Troponin-I <0.02 09/15 1128 Sodium Lvl 141 Potassium Lvl 3.4 L Chloride Lvl 101 CO2 27 AGAP 16.4 Glucose Lvl 180 H Creatinine Lvl 1.60 H BUN 15 B/C Ratio 9 Total Protein 7.2 Albumin Lvl 3.6 Globulin 3.6 A/G Ratio 1.0 Calcium Lvl 9.1 ALT 11 AST 11 Alk Phos 101 Bili Total 0.6 eGFR 42 Total CK 53 Troponin-I <0.02 PT 13.1 INR 0.97 PTT 25.2 Scheduled Meds (7): DULoxetine (Cymbalta) 60 mg [...] Voluntary Type of Urinary Elimination: Continent Extracted from:Title: Clinical Document Author: Edward Chiang MD Date: 09/15/16 Cardiology Note Edward Chiang MD, PA SUBJECTIVE: REASON FOR CONSULTATION: Syncope HISTORY OF PRESENT ILLNESS: Mr. Erazo is a 76-year-old male with a history [...] negatives listed in HPI. Vitals and Temp: Vitals Tmp(F) Pulse BP RR SpO2 FIO2 09/15 16:00 98.2 67 126/72 18 97 --- 09/15 14:08 ---- 65 150/71 17 100 --- 09/15 13:47 ---- 62 154/69 13 97 --- 09/15 11:55 ---- 69 ----- 19 94 --- 09/15 11:17 98.0 70 90/44 16 96 --- 24 Hr Tmax: 98.2F (36.78c) at 09/15 16:00 Vital Signs are the last 5 in the past 48 hours. Labs (Last four charted values) WBC H 10.6 (SEP 15) Hgb L 13.8 (SEP 15) Hct L 41.9 (SEP 15) Plt 259 (SEP 15) Na 141 (SEP 15) K L 3.4 (SEP 15) CO2 27 (SEP 15) Cl 101 (SEP 15) Cr H 1.60 (SEP 15) BUN 15 (SEP 15) Glucose Random H 180 (SEP 15) Ca 9.1 (SEP 15) PT 13.1 (SEP 15) INR 0.97 (SEP 15) PTT 25.2 (SEP 15) Troponin <0.02 (SEP 15) <0.02 (SEP 15) Total CK 51 (SEP 15) 53 (SEP 15) EXAM: Good BP control; NSR; afebrile [...] if he continues to maintain sinus rhythm 09/16/2016 [facility] Plan of Care No Data Provided for This Section Social History Social History Date Source Social History TypeResponse Substance Abuse Use: None. Exercise Exercise type: none. Alcohol Past, Previous treatment: None. Smoking Status Former smoker; Type: Cigarettes; Exposure to Tobacco Smoke None; Cigarette Smoking Last 365 Days No; Reg Smoking Cessation Counseling Yes; Tobacco use per day: 40; Started at age: 19.0; Stopped at age: 64; entered on: 08/05/18 03/05/2018 [facility] Social History TypeResponse Substance Abuse Use: None. Exercise 1 Alcohol Past, Previous treatment: None. Smoking Status Former smoker; Type: Cigarettes; Tobacco use per day: 40; Started at age: 19.0; Stopped at age: 64; Exposure to Tobacco Smoke None; Cigarette Smoking Last 365 Days No; Reg Smoking Cessation Counseling No 1none 02/16/2015 [facility] Social History TypeResponse Substance Abuse Use: None. Exercise Exercise type: none. Alcohol Past, Previous treatment: None. Smoking Status Former smoker; Type: Cigarettes; Exposure to Tobacco Smoke None; Cigarette Smoking Last 365 Days No; Reg Smoking Cessation Counseling Yes; Tobacco use per day: 40; Started at age: 19.0; Stopped at age: 64; 02/16/2015 [facility] Family History No Data Provided for This Section Advance Directives No Data Provided for This Section Functional Status No Data Provided for This Section
--- OUTSIDE RECORDS SUMMARY | 2019-01-28 23:32 | XMS REPORT | Summary of Care ---
Author Author [facility] Organization [facility] Address Unknown Phone Unavailable Encounter HQ Torri_karon(FIN) [id number] Date(s): 12/04/18 - 12/05/18 [facility] [address] [facility] [address] [place] [address]- Vital Signs No data available for this [...] rmed)7 Orthostatic 11/03/14 Active hypotension(Confirme d)8, 9 [id number] 03/02/13 Active Encounter for Active immunization(Confirm ed) [...] # 60 tab, 0 Refill(s) Start Date: 12/06/18 Stop Date: 12/07/19 Status: Ordered Results No data available for [...] no reaction. 3Result Comment: fluzone high dose [ica547]. Migrated from OBS ; Data migrated from [...]
--- OUTSIDE RECORDS SUMMARY | 2019-01-28 23:32 | XMS REPORT | Summary of Care ---
Author Author [facility] Organization [facility] Address Unknown Phone Unavailable Encounter HQ Eileen(FIN) [id number] Date(s): 09/30/18 - 10/01/18 [facility] [address] [facility] [address] [place] [address]- Vital Signs No data available for this [...] rmed)7 Orthostatic 11/03/14 Active hypotension(Confirme d)8, 9 [id number] 03/02/13 Active Encounter for Active immunization(Confirm ed) [...] Substance Reaction Severity Status NKDA Active Medications albuterol 90 mcg/inh inhalation aerosol 2 puff, INHALATION, Q6H, PRN Shortness of breath, wheezing, # 3 ea, 2 Refill(s), Pharmacy: [facility] [id number] Start Date: 09/30/18 Status: Ordered Results No data available for [...] no reaction. 3Result Comment: fluzone high dose [air206]. Migrated from OBS ; Data migrated from [...]
--- OUTSIDE RECORDS SUMMARY | 2019-01-28 23:32 | XMS REPORT | Summary of Care ---
Author Author [facility] Organization [facility] Address Unknown Phone Unavailable Encounter HQ Eileen(FIN) [id number] Date(s): 03/05/18 - 03/05/18 [facility] [address] [facility] [address] [place] [address]- [phone] Discharge Disposition: Home or Self Care Attending Physician: Deanna Smith MD Vital Signs Most recent to 1 oldest [Reference Range]: Height 172.72 cm (03/05/18 12:12 PM) Temperature Oral 96.6 DegF [96.4-99.1 DegF] (03/05/18 12:12 PM) Systolic Blood 110 mmHg Pressure [90-140 (03/05/18 12:12 PM) mmHg] Respiratory Rate 14 BRMIN [14-20 BRMIN] (03/05/18 12:12 PM) Peripheral Pulse 65 bpm Rate [60-100 bpm] (03/05/18 12:12 PM) Weight 62.955 kg (03/05/18 12:12 PM) Body Mass Index 21.1 m2 (03/05/18 12:12 PM) Problem List Condition Effective Dates Status [...] rmed)7 Orthostatic 11/03/14 Active hypotension(Confirme d)8, 9 [id number] 03/02/13 Active Encounter for Active immunization(Confirm ed) [...] no reaction. 3Result Comment: fluzone high dose [[id number]]. Migrated from OBS ; Data migrated from [id number] on 07/31/2015. 4Result Comment: done high dose. Migrated from OBS ; Data migrated from [employer] on 07/31/2015. 5Result Comment: pneumovax 23 [cvx33]. Migrated from OBS VIS: Pneumovax 23: 04/03/09 ; Data migrated from [employer] on 07/31/2015. Procedures Procedure Date Related Diagnosis [...]
--- OUTSIDE RECORDS SUMMARY | 2019-01-28 23:32 | XMS REPORT | Summary of Care ---
Author Author [facility] Organization [facility] Address Unknown Phone Unavailable Encounter HQ Torri_karon(FIN) [id number] Date(s): 03/13/18 - 03/14/18 [facility] [address] [facility] [address] [place] [address]- [phone] Vital Signs No data available for this [...] rmed)7 Orthostatic 11/03/14 Active hypotension(Confirme d)8, 9 [id number] 03/02/13 Active Encounter for Active immunization(Confirm ed) [...] no reaction. 3Result Comment: fluzone high dose [[id number]]. Migrated from OBS ; Data migrated from [...]
--- OUTSIDE RECORDS SUMMARY | 2019-01-28 23:32 | XMS REPORT | Summary of Care ---
Author Author [facility] Organization [facility] Address Unknown Phone Unavailable Encounter HQ Torri_karon(FIN) [id number] Date(s): 04/10/18 - 04/11/18 [facility] [address] [facility] [address] [place] [address]- Vital Signs No data available for this [...] rmed)7 Orthostatic 11/03/14 Active hypotension(Confirme d)8, 9 Ayfgaiuzjykiei39 03/02/13 Active Encounter for Active immunization(Confirm ed) [...] # 40 tab, 0 Refill(s) Start Date: 04/12/18 Stop Date: 05/05/18 Status: Discontinued Results No data available for [...] no reaction. 3Result Comment: fluzone high dose [[id number]]. Migrated from OBS ; Data migrated from [...]
--- OUTSIDE RECORDS SUMMARY | 2019-01-28 23:32 | XMS REPORT | Summary of Care ---
Author Author [facility] Organization [facility] Address Unknown Phone Unavailable Encounter HQ Eileen(FIN) [id number] Date(s): 06/17/18 - 06/18/18 [facility] [address] [facility] [address] [place] [address]- Vital Signs No data available for this [...] rmed)7 Orthostatic 11/03/14 Active hypotension(Confirme d)8, 9 Unrrpumwcxxrro62 03/02/13 Active Encounter for Active immunization(Confirm ed) [...] Reactions, Alerts No Known Medication Allergies Medications Cymbalta 60 mg oral delayed release capsule =1 cap, PO, BID, # 180 cap, 1 Refill(s), CARIE, Pharmacy: [facility] [id number] Start Date: 06/17/18 Stop Date: 09/14/18 Status: Ordered Results No data available for [...] no reaction. 3Result Comment: fluzone high dose [[id number]]. Migrated from OBS ; Data migrated from [...]
--- OUTSIDE RECORDS SUMMARY | 2019-01-28 23:32 | XMS REPORT | Summary of Care ---
Author Author [facility] Organization [facility] Address Unknown Phone Unavailable Encounter HQ Eileen(FIN) [id number] Date(s): 10/26/18 - 10/27/18 [facility] [address] [facility] [address] [place] [address]- Vital Signs No data available for this [...] rmed)7 Orthostatic 11/03/14 Active hypotension(Confirme d)8, 9 Gqykltzmajdwot55 03/02/13 Active Encounter for Active immunization(Confirm ed) [...] Reactions, Alerts No Known Medication Allergies Medications tizanidine 2 mg oral tablet =1 tab, PO, TID, PRN NEEDED FOR MUSCLE SPASMS, # 60 tab, Pharmacy: [facility] [id number] Start Date: 10/26/18 Status: Ordered Results No data available for [...] no reaction. 3Result Comment: fluzone high dose [[id number]]. Migrated from OBS ; Data migrated from [...]
--- OUTSIDE RECORDS SUMMARY | 2019-01-28 23:33 | XMS REPORT | Summary of Care ---
Author Author [facility] Organization [facility] Address Unknown Phone Unavailable Encounter HQ Eileen(FIN) [id number] Date(s): 10/07/18 - 10/08/18 [facility] [address] [facility] [address] [place] [address]- Vital Signs No data available for this [...] rmed)7 Orthostatic 11/03/14 Active hypotension(Confirme d)8, 9 Fperzbwepbiezk07 03/02/13 Active Encounter for Active immunization(Confirm ed) [...] # 60 tab, 0 Refill(s) Start Date: 10/07/18 Stop Date: 10/08/19 Status: Ordered Results No data available for [...] no reaction. 3Result Comment: fluzone high dose [[id number]]. Migrated from OBS ; Data migrated from [...]
--- OUTSIDE RECORDS SUMMARY | 2019-01-28 23:33 | XMS REPORT | Summary of Care ---
Author Author [facility] Organization [facility] Address Unknown Phone Unavailable Encounter HQ Torri_karon(FIN) [id number] Date(s): 03/19/18 - 03/20/18 [facility] [address] [facility] [address] [place] [address]- Vital Signs No data available for this [...] rmed)7 Orthostatic 11/03/14 Active hypotension(Confirme d)8, 9 Ytkjhypoydhqyp48 03/02/13 Active Encounter for Active immunization(Confirm ed) [...] no reaction. 3Result Comment: fluzone high dose [sqb412]. Migrated from OBS ; Data migrated from [...]
--- OUTSIDE RECORDS SUMMARY | 2019-01-28 23:33 | XMS REPORT | Summary of Care ---
Author Author [facility] Organization [facility] Address Unknown Phone Unavailable Encounter HQ Eileen(FIN) [id number] Date(s): 03/19/18 - 03/19/[address] [facility] [address] [facility] [address] [place] [address]- Attending Physician: Yesenia Solano MD Vital Signs [...] rmed)7 Orthostatic 11/03/14 Active hypotension(Confirme d)8, 9 Cxinetipoayecq72 03/02/13 Active Encounter for Active immunization(Confirm ed) [...] no reaction. 3Result Comment: fluzone high dose [[id number]]. Migrated from OBS ; Data migrated from [...]
--- OUTSIDE RECORDS SUMMARY | 2019-01-28 23:33 | XMS REPORT | Summary of Care ---
Author Author [facility] Organization [facility] Address Unknown Phone Unavailable Encounter HQ Eileen(FIN) [id number] Date(s): 03/19/18 - 03/20/18 [facility] [address] [facility] [address] [place] [address]- [phone] Vital Signs No data available for this [...] rmed)7 Orthostatic 11/03/14 Active hypotension(Confirme d)8, 9 Hotcxcbktrnhyk64 03/02/13 Active Encounter for Active immunization(Confirm ed) [...] no reaction. 3Result Comment: fluzone high dose [[id number]]. Migrated from OBS ; Data migrated from [...]
[2019-01-28] MEDS ORDERED: SODIUM CHLORIDE 0.9% 500ML 500 ML IV ONE (23:45)
[2019-01-29 00:11] LABS: BASOPHILS # (AUTO) 0.1 (0.0-0.1); BASOPHILS % 0.3 % (0.0-1.0); EOSINOPHILS # (AUTO) 0.3 (0.0-0.4); EOSINOPHILS % 1.6 % (0.0-6.0); HEMATOCRIT 40.8 % (38.2-49.6); HEMOGLOBIN 12.4 g/dL (14.0-18.0); LYMPHOCYTES # (AUTO) 1.8 (1.0-3.2); LYMPHOCYTES % 10.2 % (18.0-39.1); MEAN CORPUSCULAR HEMOGLOBIN 24.9 pg (28-32); MEAN CORPUSCULAR HGB CONC 30.4 g/dL (31-35); MEAN CORPUSCULAR VOLUME 82.1 fL (81-99); MONOCYTES # (AUTO) 0.9 (0.2-0.8); NEUTROPHILS # (AUTO) 14.4 (2.1-6.9); NEUTROPHILS % 81.9 % (38.7-80.0); PLATELET COUNT 307 x10e3/uL (140-360); RED BLOOD COUNT 4.97 x10e6/uL (4.3-5.7); RED CELL DISTRIBUTION WIDTH 20.3 % (11.7-14.4)
[2019-01-29 00:45] LABS: ALBUMIN 3.7 g/dL (3.5-5.0); ALBUMIN/GLOBULIN RATIO 0.8 (0.8-2.0); CALCIUM 10.3 mg/dL (8.4-10.2); CREATININE, SERUM 1.22 mg/dL (0.72-1.25)
[2019-01-29 00:51] LABS: B-TYPE NATRIURETIC PEPTIDE2 964.1 pg/mL (0-100)
[2019-01-29 00:52] LABS: CREATINE KINASE MB 1.6 ng/mL (0-5.0)
--- NOTE | 2019-01-29 00:59 | Diagnostic Imaging Report ---
History:Syncope Comparison studies: None Technique: Axial images were obtained from the skull base to the vertex. Coronal and sagittal images reconstructed from the axial data. Dose modulation, iterative reconstruction, and/or weight based adjustment of the mA/kV was utilized to reduce the radiation dose to as low as reasonably achievable. Intravenous contrast: None Findings: Scalp/skull: No abnormalities. Extra-axial spaces: No masses. No fluid collections. Brain sulci: Moderately prominent. Ventricles: Moderate compensatory dilatation. No hydrocephalus. Parenchyma: Subtle hypodensities in the supratentorial white matter are small vessel ischemic changes. No masses, hemorrhage, acute or chronic cortical vascular insults. Sellar/suprasellar region: No abnormalities. Craniocervical junction: Patent foramen magnum. No Chiari one malformation. Incidental findings: Atherosclerotic calcifications in the carotid siphons and right vertebral artery. Impression: No acute abnormalities. Chronic findings: 1. Moderate generalized volume loss. 2. Mild supratentorial white matter small vessel ischemic changes. Signed by: Dr. Campbell Reyes M.D. on 01/29/2019 12:56 AM
[2019-01-29 01:12] LABS: ANION GAP 22.3 mmol/L (8-16); POTASSIUM 5.3 mmol/L (3.5-5.1)
[2019-01-29 01:59] LABS: BILIRUBIN,URINE NEGATIVE (NEGATIVE); CLARITY,URINE SL CLOUDY (CLEAR); COLOR,URINE YELLOW (YELLOW); KETONES,URINE NEGATIVE (NEGATIVE); LEUKOCYTE ESTERASE ,URINE SMALL (NEGATIVE); NITRITE,URINE POSITIVE (NEGATIVE); PROTEIN,URINE DIPSTICK NEGATIVE (NEGATIVE); URINE UROBILINOGEN 0.2 mg/dL (0.2 - 1)
--- NOTE | 2019-01-29 02:08 | Diagnostic Imaging Report ---
EXAMINATION: CHEST SINGLE (PORTABLE) INDICATION: Near syncope, orthostatic hypotension COMPARISON: Chest radiograph 09/22/2018, 04/19/2010 FINDINGS: AP view TUBES and LINES: Left chest wall cardiac device with single lead in the right atrium.. LUNGS: Lungs are well inflated. There is mild prominence of the central pulmonary vasculature, consistent with pulmonary venous congestion. No consolidations. PLEURA: No pleural effusion or pneumothorax. HEART AND MEDIASTINUM: Cardiac size is mildly enlarged. Aortic arch calcifications. Left coronary stent. BONES AND SOFT TISSUES: No acute osseous lesion. Soft tissues are unremarkable. Fixation pin in the left humeral head. UPPER ABDOMEN: No free air under the diaphragm. IMPRESSION: Mild cardiomegaly with central pulmonary vascular congestion. Left coronary stent. Signed by: Jake Suárez DO on 01/29/2019 2:05 AM
[2019-01-29] MEDS ORDERED: CEFTRIAXONE SOD 1 GM/NS 50 ML 50 ML IV ONE (02:30)
[2019-01-29] MEDS ORDERED: SODIUM CHLORIDE 0.9% 1000ML 1,000 ML IV ONE (03:15)
[2019-01-29] MEDS ORDERED: ACETAMINOPHEN 325 MG TAB PO PRN (03:15)
[2019-01-29] MEDS ORDERED: ONDANSETRON HCL INJ 2MG/ML 2ML 2 MG/ML VIAL IV PRN (03:15)
[2019-01-29] MEDS: CEFTRIAXONE SOD 1 GM/NS 50 ML 50 ML IV SCH (03:26)
--- OUTSIDE RECORDS SUMMARY | 2019-01-29 03:26 | XMS REPORT | Clinical Summary ---
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 Role Phone Asked, No Pcp PCP [...] Lot Implanted Type 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 er 10/26/2017 [id number] / / [id number] Device Vasclr Clsr Vasoactive Cardiovasc N/A: N/A Intstnl Peptd 6fr Angio-Seal - ular [id number] Implants Implanted: 03/20/2017 (Quantity not on file) [id number] / / Catheter Angiography [facility] Surgical N/A: N/A BSC Torque Grain Processor Ii 5fr 100cm - Implants; PERIPHERAL [id number] Expanders; INTERVENTI Implanted: 03/20/2017 (Quantity not Extenders; ON on file) Surgical VASCULAR Wires ERICA Results Not on fileafter 01/28/2018 Insurance Type Payer Benefit Subscriber ID Effective Phone Address Plan / Dates Group HMO [facility] MEDICARE [facility] xxxxxxxxx 2017-P MEDICARE resent HMO/PPO Advance Directives Patient has advance care planning documents on file. For more information, sam sandy contact: Jacek Duke [address] [place] [address]
--- OUTSIDE RECORDS SUMMARY | 2019-01-29 03:27 | XMS REPORT | Clinical Summary ---
Author Author LILY Harlyn MedicalMinidoka Memorial HospitalBreitbart News NetworkCHI St. Vincent HospitalLimeadePeaceHealth [facility] Address Unknown Phone Unavailable Care Team Providers Care Rehab Nursing Tech Name Role Phone Pcp, No PCP Unavailable [...] hours or as directed by MD. Active omav-uifymdotwpwnb-yreito Take 1 tablet 30 tablet 1 ls [...] needed . Chronic diastolic (congestive) heart failure ([facility]), COPD (chronic obstructive pulmonary disease) with chronic bronchitis ([facility]), Coronary artery disease involving [place] coronary artery of [place] heart without angina pectoris, PAD (peripheral artery disease) ([facility]), Ischemic cardiomyopathy, Presence of permanent cardiac pacemaker, [...] total) 8 by mouth daily. 12/29/2018 Discontinued lakq-ibeqbteqhgfoz-arpnzc Take 1 tablet 0 ls (THERAGRAN-M) 9 [...] chronic bronchitis 04/10/2016 Coronary artery disease involving [place] coronary artery of [place] heart 04/10/2016 without angina pectoris PAD (peripheral [...] mental status type; Coronary artery disease involving [place] coronary artery of [place] heart without angina pectoris 12/12/2018 Hospital Cardiology - Encounter 12/29/2018 12/12/2018 Orders Only General Internal Medicine 12/12/2018 Travel Thanh Sanchez RN 07/06/2018 Orders Only Research Thanh Sanchez, PERICO 07/06/2018 Orders Only Research Thanh Sanchez, PERICO 07/06/2018 Orders Only Research Sarai Nam MD Iron deficiency anemia secondary to inadequate [...] COPD type (HCC); Coronary artery disease involving [place] coronary artery of [place] heart without angina pectoris; Cardiac pacemaker in situ; Chronic diastolic (congestive) heart failure (HCC) 04/26/2018 [facility] General Internal Medicine - Encounter 04/30/2018 04/26/2018 [...] Pneumonia, unspecified organism; Coronary artery disease involving [place] coronary artery of [place] heart without angina pectoris; COPD (chronic obstructive [...] 01/23/2018 Hospital Cardiology - Encounter 01/29/2018 after 01/28/2018 Family History Medical History Relation Name Comments [...] Lot Implanted Type 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 er 06/28/2018 [id number] / / [id number] Device Clsr Angio-Seal Vip 6fr Cardiovasc Right: Groin ST KAREEM [id number] - [id number] ular MED:CARDIA Implanted: Qty: 1 on 10/08/2017 by Bert Arredondo MD [id number] 03/21/2020 [id number] / / [id number] [employer] Mr [id number] [employer]PLANTS [place] [id number] - [id number] SCI:INTERV Implanted: Qty: 1 on 12/23/2018 by [...] ms QTC Calculatio n(Bazett) 518 ms P Fence 66 degrees R Fence -60 degrees T Fence -83 degrees Normal sinus rhythm Possible Left [...] AND SCREEN, Routine 07/06/2018 AUTOMATED 3:22 PM MAINTAINER OPERATOR DIRECT AHG (VALERY)/DIRECT Routine 07/06/2018 JANA 3:22 PM MAINTAINER OPERATOR TRANSFUSION SERVICE 05/05/2018 REPORT - SCAN 6:04 PM MAINTAINER OPERATOR CBC W/PLT COUNT & AUTO Routine 05/04/2018 Iron deficiency anemia DIFFERENTIAL 1:28 PM MAINTAINER OPERATOR secondary to inadequate dietary iron intake DIRECT AHG (VALERY)/DIRECT Routine 05/04/2018 Iron deficiency anemia JANA 1:28 PM MAINTAINER OPERATOR secondary to inadequate dietary iron intake TYPE AND SCREEN, Routine 05/04/2018 Iron deficiency anemia AUTOMATED 1:28 PM MAINTAINER OPERATOR secondary to inadequate dietary iron intake CBC W/PLT COUNT & AUTO Routine 05/04/2018 Iron deficiency anemia DIFFERENTIAL 1:28 PM MAINTAINER OPERATOR secondary to inadequate dietary iron intake COMPREHENSIVE METABOLIC Routine 05/04/2018 Iron deficiency anemia PANEL 1:28 PM MAINTAINER OPERATOR secondary to inadequate dietary iron intake PROTHROMBIN TIME/INR Routine 05/04/2018 Iron deficiency anemia 1:28 PM MAINTAINER OPERATOR secondary to inadequate dietary iron intake APTT Routine 05/04/2018 Iron deficiency anemia 1:28 PM MAINTAINER OPERATOR secondary to inadequate dietary iron intake FIBRINOGEN Routine 05/04/2018 Iron deficiency anemia 1:28 PM MAINTAINER OPERATOR secondary to inadequate dietary iron intake BILIRUBIN, TOTAL AND Routine 05/04/2018 Iron deficiency anemia DIRECT 1:28 PM MAINTAINER OPERATOR secondary to inadequate dietary iron intake CREATINE KINASE (CK) Routine 05/04/2018 Iron deficiency anemia 1:28 PM MAINTAINER OPERATOR secondary to inadequate dietary iron intake LACTATE DEHYDROGENASE Routine 05/04/2018 Iron deficiency anemia (LDH) 1:28 PM MAINTAINER OPERATOR secondary to inadequate dietary iron intake RHYTHM STRIP - SCAN 05/04/2018 10:21 AM MAINTAINER OPERATOR CBC (HEMOGRAM ONLY) Routine 04/30/2018 6:01 AM [...] ms QTC Calculatio n(Bazett) 468 ms P Fence 74 degrees R Fence 68 degrees T Fence 80 degrees Normal sinus rhythm Normal ECG [...] ms QTC Calculatio n(Bazett) 431 ms P Fence 59 degrees R Fence 31 degrees T Fence 255 degrees Normal sinus rhythm Left ventricula [...] ms QTC Calculatio n(Bazett) 477 ms P Fence 69 degrees R Fence -12 degrees T Fence 34 degrees Suspect unspecifie d pacemaker failure [...] ECG 12-LEAD Routine 01/28/2018 4:04 AM CDT after 01/28/2018 Results * CBC with platelet count + automated diff (01/07/2019 11:27 AM CDT) Only the most recent of 8 results within the time period is included. WBC 11.1 (H) 3.5 - 10.5 K/L [facility] RBC 5.56 4.63 - 6.08 M/L [facility] Hemoglobin 13.7 13.7 - 17.5 GM/DL [facility] Hematocrit 45.4 40.1 - 51.0 % [facility] MCV 81.7 79.0 - 92.2 fL [facility] MCH 24.6 (L) 25.7 - 32.2 pg [facility] MCHC 30.2 (L) 32.3 - 36.5 GM/DL [facility] RDW 18.2 (H) 11.6 - 14.4 % [facility] Platelets 300 150 - 450 K/CU MM [facility] MPV 10.2 9.4 - 12.4 fL [facility] nRBC 0 0 - 0 /100 WBC [facility] % Neutros 72 % [facility] % Lymphs 17 % [facility] % Monos 7 % [facility] % Eos 3 % [facility] % Baso 1 % [facility] # Neutros 7.97 (H) 1.78 - 5.38 K/L [facility] # Lymphs 1.93 1.32 - 3.57 K/L [facility] # Monos 0.75 0.30 - 0.82 K/L [facility] # Eos 0.32 0.04 - 0.54 K/L [facility] # Baso 0.05 0.01 - 0.08 K/L [facility] Immature 1 0 - 1 % [facility] Granulocytes-Relative [facility] Specimen Blood Performing Organization Address City/State/Zipcode Phone Number [facility] [address] [place] [address] MED[facility] * Comprehensive metabolic panel (01/07/2019 11:27 AM CDT) Only the most recent of 3 results within the time period is included. Protein, Total 8.1 6.0 - 8.3 gm/dL [facility] Albumin 4.4 3.5 - 5.0 g/dL [facility] Alkaline Phosphatase 106 40 - 150 U/L [facility] Total Bilirubin 0.4 0.2 - 1.2 mg/dL [facility] Sodium 136 136 - 145 meq/L [facility] Potassium 4.9 3.5 - 5.1 meq/L [facility] Chloride 97 (L) 98 - 107 meq/L [facility] CO2 30 (H) 22 - 29 meq/L [facility] BUN 22 (H) 7 - 21 mg/dL [facility] Creatinine 1.26 (H) 0.57 - 1.25 mg/dL [facility] Glucose 123 (H) 70 - 105 mg/dL [facility] Calcium 10.3 (H) 8.4 - 10.2 mg/dL [facility] AST 20 5 - 34 U/L [facility] ALT 22 6 - 55 U/L [facility] EGFR 56Comment: ESTIMATED GFR IS mL/min/1.[address] [facility] NOT ACCURATE CREATININE [facility] CLEARANCE IN PREDICTING GLOMERULAR FILTRATION RATE. ESTIMATED GFR IS NOT APPLICABLE FOR DIALYSIS PATIENTS. Specimen Blood Performing Organization Address City/State/Zipcode Phone Number [facility] [address] [place] [address] MEDICAL CENTER * VASCULAR DIAGRAM [...] WBC 11.2 (H) 3.5 - 10.5 K/L [facility] RBC 5.01 4.63 - 6.08 M/L [facility] Hemoglobin 12.2 (L) 13.7 - 17.5 GM/DL [facility] Hematocrit 42.0 40.1 - 51.0 % [facility] MCV 83.8 79.0 - 92.2 fL [facility] MCH 24.4 (L) 25.7 - 32.2 pg [facility] MCHC 29.0 (L) 32.3 - 36.5 GM/DL [facility] RDW 16.4 (H) 11.6 - 14.4 % [facility] Platelets 347 150 - 450 K/CU MM [facility] MPV 10.7 9.4 - 12.4 fL [facility] nRBC 0 0 - 0 /100 WBC [facility] Specimen Blood Performing Organization Address City/[facility] [place] [address] [phone] * PSA (12/29/2018 6:20 AM CDT) PSA 0.7 0.0 - 4.0 ng/mL [facility] Specimen Blood Performing Organization Address [facility] Phone Number [address] * Magnesium (12/29/2018 6:20 AM CDT) Only the most recent of 17 results within the time period is included. Magnesium 2.1 1.6 - 2.6 mg/dL [facility] Specimen Blood Performing Organization Address City/[facility] Phone Number [address] [address] [phone] [place] [address] * Basic Metabolic Panel (12/29/2018 6:20 AM CDT) Only the most recent of 30 results within the time period is included. Sodium 142 136 - 145 meq/L [facility] Potassium 4.2 3.5 - 5.1 meq/L [facility] Chloride 107 98 - 107 meq/L [facility] CO2 28 22 - 29 meq/L [facility] BUN 34 (H) 7 - 21 mg/dL [facility] Creatinine 1.01 0.57 - 1.25 mg/dL [facility] Glucose 113 (H) 70 - 105 mg/dL [facility] Calcium 9.8 8.4 - 10.2 mg/dL [facility] EGFR 72Comment: ESTIMATED GFR IS mL/min/1.[address] [facility] NOT ACCURATE CREATININE [facility] CLEARANCE IN PREDICTING GLOMERULAR FILTRATION RATE. ESTIMATED GFR IS NOT APPLICABLE FOR DIALYSIS PATIENTS. Specimen Blood Performing Organization Address City/State/Zipcode Phone Number [facility] [address] [place] [address] [facility] * US renal complete (12/28/2018 4:27 PM CDT) Specimen Narrative Performed At FINAL REPORT [facility] Renal ultrasound dated 12/28/2018 Comment:Real-time transabdominal renal [...] MD Report Verified Date/Time:12/28/2018 16:55:31 Reading Location: [address] Radiology Reading Room Procedure Note Interface, [...] Report Verified Date/Time: 12/28/2018 16:55:31 Reading Location: [address] Radiology Reading Room Performing Organization Address City/State/Zipcode Phone Number [facility] * Sodium, random urine (12/25/2018 8:13 PM CDT) Only the most recent of 2 results within the time period is included. Sodium Urine 102 meq/L [facility] Specimen Urine Narrative Performed At Reference Range: No Normals [facility] Performing Organization Address [facility] Hospitalcode Phone Number [address] * Creatinine, random urine (12/25/2018 8:13 PM CDT) Creatinine, Ur 77.2 mg/dL [facility] Specimen Urine Narrative Performed At Reference Range: No Normals [facility] Performing Organization Address [facility] Phone Number [address] * B-type Natriuretic Factor (BNP) (12/25/2018 4:02 AM CDT) Only the most recent of 4 results within the time period is included. BNP 1,490 (H) 0 - 100 pg/mL [facility] Specimen Blood Performing Organization Address City/[facility] [place] [phone] [place] [address] * POC-Glucose meter (12/24/2018 5:55 PM CDT) Only the most recent of 9 results within the time period is included. POC-Glucose Meter 106Comment: TESTED AT [facility] 70 - 110 mg/dL [address] Specimen Blood Performing Organization Address City/State/Zipcode Phone Number [address] [address] [facility] * XR chest 1 view portable / bedside (12/24/2018 12:56 PM CDT) Only the most recent of 5 results within the time period is included. Specimen Narrative Performed At FINAL REPORT [facility] TECHNIQUE: Frontal chest radiographs dated 12/24/2018. CLINICAL HISTORY: Shortness of breath COMPARISON STUDY: Chest radiograph dated 12/12/2018 IMPRESSION: Left-sided pacemaker is unchanged in position. There is improved aeration of the lungs. Small left pleural effusion with associated atelectasis seen. No pneumothorax. Cardiomediastinal silhouette is stable in size. No pulmonary edema. Bones are osteopenic. Signed: Nickie Paulino MD Report Verified Date/Time:12/24/2018 13:14:52 Reading Location: [facility] Radiology Reading Room Procedure Note Interface, External [...] Report Verified Date/Time: 12/24/2018 13:14:52 Reading Location: [facility] Radiology Reading Room Performing Organization Address City/State/Zipcode Phone Number [facility] * POC ACTIVATED CLOTTING TIME (12/23/2018 9:31 PM CDT) Only the most recent of 9 results within the time period is included. Activated Clotting Time 136Comment: TESTED AT [facility] sec [address] [address] [facility] Specimen Blood Performing Organization Address City/State/Zipcode Phone Number [address] [place] [address] [facility] * Urinalysis w/Microscopic (12/23/2018 9:21 PM CDT) Only the most recent of 4 results within the time period is included. Color, UA Yellow [facility] Clarity, UA Clear [facility] Specific [place], UA 1.018 1.001 - 1.035 [facility] pH, UA 7.5 5.0 - 8.0 [facility] Protein, UA Negative Negative [facility] Glucose, UA Negative Negative [facility] Ketones, UA Negative Negative [facility] Bilirubin, UA Negative Negative [facility] Blood, UA Negative Negative [facility] Nitrite, UA Negative Negative [facility] Leukocytes, UA Negative Negative [facility] Urobilinogen, UA 2.0 (H) 0.2 - 1.0 mg/dL [facility] RBC, UA <1 /HPF [facility] WBC, UA <1 /HPF [facility] Specimen Source Urine, Straight Catheter [facility] Specimen Urine - Urine, Straight Catheter Performing Organization Address City/[facility]/Zipcode Phone Number [address] [address] [phone] [place] [address] * Urine culture (12/23/2018 9:21 PM CDT) Only the most recent of 2 results within the time period is included. Result No growth [facility] Specimen Urine - Urine, Straight Catheter Performing Organization Address City/[facility]/Zipcode Phone Number [address] [address] [facility] * PT/aPTT (12/23/2018 5:17 AM CDT) Only the most recent of 2 results within the time period is included. Protime 16.0 (H) 11.9 - 14.2 seconds [facility] INR 1.4 <=5.9 [facility] PTT 37.6 (H) 22.5 - 36.0 seconds [facility] Specimen Blood Narrative Performed At Effective 11/24/2018: PT Reference Range Change [facility] New: 11.9-14.2Previous: 11.7-14.7 [facility] RECOMMENDED COUMADIN/WARFARIN INR THERAPY RANGES STANDARD DOSE: 2.0-3.0Includes: PROPHYLAXIS for venous thrombosis, systemic embolization; TREATMENT for venous thrombosis and/or pulmonary embolus. HIGH RISK: Target INR is 2.5-3.5 for patients wiht mechanical heart valves. Performing Organization Address City/State/Zipcode Phone Number [facility] [address] [place] [address] [facility] * ECHOCARDIOGRAM REPORT - SCAN (12/16/2018 9:24 PM CDT) Narrative Performed At * 2D Echo W/Doppler(CW/PW/Color) (12/16/2018 12:50 PM CDT) Ejection Fraction [facility] Specimen Narrative Performed At Transthoracic Echocardiography Report (TTE) [facility] Demographics [facility] Patient NameTAQUERIA ERAZO Date of Study12/16/2018 MERCEDES Gender Male Visit [id number] Race Unknown [id number] Number Date of 1940 ReferringDon-Humberto Noel Physician Age 78 year(s) SonographerLinus Rodríguez [facility] Lift Slab Operator Adela Wood RDCS Interpreting Brock Dimas MD [...] Study 12/16/2018 MERCEDES Gender Male Visit Number [id number] Race Unknown Room Number 1454 Number Date of 1940 Referring Scott Thomson MD Age 78 year(s) [employer] 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 Linus Rodríguez RDCS Lift Slab Operator Adela Wood CS Interpreting Brock Dimas MD [...] TR Gradient: 26.67 mmHg Performing Organization Address City/[facility]/Zipcode Phone Number [facility] * Uric acid (12/15/2018 5:15 AM CDT) Uric Acid 8.0 (H) 2.6 - 7.2 mg/dL [facility] Specimen Blood Performing Organization Address City/[facility] Phone Number [facility] [address] [place] [address] [facility] * CT brain without IV contrast (12/14/2018 10:30 AM CDT) Only the most recent of 2 results within the time period is included. Specimen Narrative Performed At FINAL REPORT Advisity CT Head without contrast CLINICAL HISTORY: Confusion/delirium, [...] MD Report Verified Date/Time:12/14/2018 10:38:54 Reading Location: [address] Neuro Reading Room Procedure Note Interface, [...] Report Verified Date/Time: 12/14/2018 10:38:54 Reading Location: [address] Neuro Reading Room Performing Organization Address City/State/Zipcode Phone Number [facility] * Blood culture (12/13/2018 3:29 PM CDT) Only the most recent of 4 results within the time period is included. Result No growth in [address] [facility] Specimen Blood Performing Organization Address City/State/Zipcode Phone Number [facility] [address] [place] [address] [facility] * Troponin I (12/13/2018 4:40 AM CDT) Only the most recent of 6 results within the time period is included. Troponin I 0.07 (H) 0.00 - 0.03 ng/mL [facility] Specimen Blood Narrative Performed At Troponin I (TnI) levels must be interpreted in the context of the presenting [facility] symptoms and the clinical findings. Elevated TnI levels indicate myocardial [facility] damage, but are not specific for ischemic heart disease. Elevated TnI levels are seen in patients with other cardiac conditions (including myocarditis and congestive heart failure), and slight TnI elevations occur in patients with other conditions, including sepsis, renal failure, acidosis, acute neurological disease, and persistent tachyarrhythmia. Performing Organization Address [facility] Phone Number [place] [phone] [place] [address] [facility] * ECG 12 lead (12/12/2018 9:23 PM CDT) Only the most recent of 6 results within the time period is included. Specimen Narrative Performed At Ventricular Rate 90 BPM GE [facility] Atrial Rate 90 BPM P-R Interval 198 ms QRS Duration 104 ms Q-T Interval 386 ms QTC Calculation(Bazett) 472 ms P Fence 70 degrees R Fence -16 degrees T Fence 93 degrees Normal sinus rhythm Possible Left atrial enlargement Poor R wave progression Nonspecific T wave abnormality Prolonged QT Abnormal ECG When compared with ECG of 12-DEC-2018 14:33, QRS axis Shifted right Voltage criteria for LVH no longer seen T wave inversion no longer evident in Inferior leads T wave inversion no longer evident inV3 QT has shortened Confirmed by MD EBONI, ÁNGEL ([id number]) on 12/13/2018 2:23:07 PM Procedure Note Interface, External Ris In - 12/13/2018 2:23 PM CDT Ventricular Rate 90 BPM Atrial Rate 90 BPM P-R Interval 198 ms QRS Duration 104 ms Q-T Interval 386 ms QTC Calculation(Bazett) 472 ms P Fence 70 degrees R Fence -16 degrees T Fence 93 degrees Normal sinus rhythm Possible Left atrial enlargement Poor R wave progression Nonspecific T wave abnormality Prolonged QT Abnormal ECG When compared with ECG of 12-DEC-2018 14:33, QRS axis Shifted right Voltage criteria for LVH no longer seen T wave inversion no longer evident in Inferior leads T wave inversion no longer evident in V3 QT has shortened Confirmed by MD EBONI, [facility] ([id number]) on 12/13/2018 2:23:07 PM Performing Organization Address City/State/Zipcode Phone Number [facility] * Acetaminophen level (12/12/2018 4:38 PM CDT) Acetaminophen Level <5.7 (L)Comment: Specimen 10.0 - 30.0 ug/mL [facility] slightly hemolyzed [facility] Specimen Blood Narrative Performed At Therapeutic Range: 10.0-30.0 g/mL [facility] Toxic Levels:>200.0 g/mL [facility] Performing Organization Address City/[facility]/Zipcode Phone Number [facility] [phone] [place] [address] * ECG/EKG Interpretation (12/12/2018 3:04 PM CDT) [...] Protein, Total 6.1 6.0 - 8.3 gm/dL [facility] Albumin 3.6 3.5 - 5.0 g/dL [facility] Total Bilirubin 1.1 0.2 - 1.2 mg/dL [facility] Bilirubin, Direct 0.4 0.1 - 0.5 mg/dL [facility] Alkaline Phosphatase 60 40 - 150 U/L [facility] AST 19 5 - 34 U/L [facility] ALT 9 6 - 55 U/L [facility] Specimen Blood Performing Organization Address [facility] Phone Number [address] * POC-Lactic Acid, Venous (12/12/2018 2:35 PM CDT) Only the most recent of 2 results within the time period is included. POC-Lactic Acid, Venous 1.5Comment: TESTED AT [facility] 0.9 - 1.7 mmol/L [address] Specimen Blood Performing Organization Address [facility] Phone Number [address] * Type and screen, automated (07/06/2018 3:22 PM MAINTAINER OPERATOR) Only the most recent of 3 results within the time period is included. ABO/RH AUTOMATED (BEAKER) O POSITIVE [facility] Ab Scrn NEGATIVE [facility] Specimen Blood Performing Organization Address [facility] Phone Number [place] [phone] [place] [address] * Direct AHG (VALERY)/Direct Jana (07/06/2018 3:22 PM MAINTAINER OPERATOR) Only the most recent of 3 results within the time period is included. Direct [facility]HG-IGG NEGATIVE [facility] Direct [facility]HG-C3B, C3D NEGATVIE [facility] Specimen Blood Performing Organization Address City/[facility] [place] [place] [address] [phone] [place] [address] * TRANSFUSION SERVICE REPORT - SCAN (05/05/2018 6:04 PM MAINTAINER OPERATOR) Only the most recent of 4 results within the time period is included. Narrative Performed At * aPTT (05/04/2018 1:28 PM MAINTAINER OPERATOR) Only the most recent of 2 results within the time period is included. PTT 38.9 (H) 22.5 - 36.0 seconds [facility] Specimen Blood Performing Organization Address City/[facility] [place] [address] [phone] [place] [address] * Protime-INR (05/04/2018 1:28 PM MAINTAINER OPERATOR) Only the most recent of 2 results within the time period is included. Protime 17.7 (H) 11.7 - 14.7 seconds [facility] INR 1.5 <=5.9 [facility] Specimen Blood Narrative Performed At RECOMMENDED COUMADIN/WARFARIN INR THERAPY RANGES [facility] STANDARD DOSE: 2.0 - 3.0 Includes: PROPHYLAXIS for venous thrombosis, [facility] systemic embolization; TREATMENT for venous thrombosis and/or pulmonary embolus. HIGH RISK: Target INR is 2.5-3.5 for patients with mechanical heart valves. Performing Organization Address [facility] [place] [address] [phone] [place] [address] * Fibrinogen (05/04/2018 1:28 PM MAINTAINER OPERATOR) Only the most recent of 2 results within the time period is included. Fibrinogen 277 225 - 434 mg/dl [facility] Specimen Blood Performing Organization Address City/[facility] [place] [address] [phone] [place] [address] * Bilirubin, total and direct (05/04/2018 1:28 PM MAINTAINER OPERATOR) Only the most recent of 2 results within the time period is included. Total Bilirubin 0.4 0.2 - 1.2 mg/dL [facility] Bilirubin, Direct 0.2 0.1 - 0.5 mg/dL [facility] Specimen Blood Performing Organization Address City/[facility] Phone Number [address] [address] [phone] [place] [address] * (LDH) Lactate dehydrogenase (05/04/2018 1:28 PM MAINTAINER OPERATOR) Only the most recent of 2 results within the time period is included. LDH 204 125 - 220 U/L [facility] Specimen Blood Performing Organization Address City/[facility] Phone Number [address] [address] [facility] * CK (05/04/2018 1:28 PM MAINTAINER OPERATOR) Only the most recent of 2 results within the time period is included. Total CK 33 29 - 200 U/L [facility] Specimen Blood Performing Organization Address [facility] [place] [address] [phone] [place] [address] * Lactic acid, venous, whole blood (04/29/2018 5:46 AM CDT) Lactate, Venous 1.2Comment: Specimen slightly 0.5 - 2.2 mmol/L [facility] hemolyzed [facility] Specimen Blood Narrative Performed At Effective 10/31/2015: Units/Reference Range Change [facility] New: 0.5-2.2 mmol/LPrevious: 5-20 mg/dL [facility] Performing Organization Address [facility] Phone Number [address] [address] [phone] [place] [address] * Hemoglobin (04/29/2018 5:41 AM CDT) Hemoglobin 11.0 (L) 13.7 - 17.5 GM/DL [facility] Specimen Blood Narrative Performed At POST TRANSFUSIONREDES PROTOCOL [facility] Performing Organization Address City/[facility] Phone Number [address] [address] [phone] * Rapid drug screen, urine (04/29/2018 4:09 AM CDT) Barbiturate Screen Negative Negative [facility] Benzodiazepine Screen Negative Negative [facility] Cocaine (Metab.) Screen Negative Negative [facility] Methadone Screen Negative Negative [facility] Opiate Screen Negative Negative [facility] Cannabinoid Screen Negative Negative [facility] Amph/Methamph Screen Negative Negative [facility] Phencyclidine Screen Negative Negative [facility] Oxycodone Screen Negative Negative [facility] Specimen Urine Narrative Performed At [facility] Cocaine 300 ng/mL [facility] Xkcjtukeuix33 ng/mL Xkkwwcrmlgyxvb108 ng/mL Barbiturate 200 ng/mL Voirioocgjgmv58 ng/mL Hwfvex441 ng/mL Methadone 300 ng/mL Amphetamine/ 1000 ng/mL Methamphetamine Oxycodone 300 ng/mL This assay provides an unconfirmed qualitative test result for the clinical management of patients in emergency situations. Chain of custody not maintained. Some fisz-nuk-cdexacn medications, as well as adulterants, may cause inaccurate results. Clinical correlation should be applied. A more comprehensive drug screen or confirmation of a detected drug may be performed upon request. Performing Organization Address City/State/Zipcode Phone Number [place] [address] [place] [address] [phone] [place] [address] * Prepare Leuko-Red RBC (04/28/2018 11:54 PM CDT) CROSSMATCH COMPATIBLE SAFETRACE TX Unit ABO O Pos SAFETRACE TX UNIT NUMBER [id number] SAFET[place]ACE [place] Status TRANSFUSED SAFETRACE [place] Blood Bank Product RED BLOOD CELLS SAFETRACE TX PRODUCT CODE [id number] SAFETRACE TX CROSSMATCH COMPATIBLE SAFETRACE TX Unit ABO O Pos SAFETRACE TX UNIT NUMBER [id number] SAFET[place]ACE [place] Status TRANSFUSED SAFETRACE TX Blood Bank Product RED BLOOD CELLS SAF[place] PRODUCT CODE [id number] [place] Specimen Other Performing Organization Address City/State/Zipcode Phone Number [place] * REPORT OF PROCEDURE - ENDOSCOPY URL (04/28/2018 6:57 PM CDT) Narrative Performed At * Transfuse Leuko-Red RBC (04/28/2018 4:39 AM CDT) Only the most recent of 3 results within the time period is included. * Hemoglobin A1c (04/27/2018 9:59 AM CDT) Hemoglobin A1C 4.5 4.3 - 6.1 % [facility] Specimen Blood Performing Organization Address City/[facility]/Zipcode Phone Number [facility] [address] [place] [address] [facility] * Urinalysis w/Microscopic + Reflex to Culture (04/27/2018 6:17 AM CDT) Color, UA Yellow [facility] Clarity, UA Clear [facility] Specific [place], UA 1.017 1.001 - 1.035 [facility] pH, UA 6.0 5.0 - 8.0 [facility] Protein, UA Negative Negative [facility] Glucose, UA Negative Negative [facility] Ketones, UA Negative Negative [facility] Bilirubin, UA Negative Negative [facility] Blood, UA Negative Negative [facility] Nitrite, UA Negative Negative [facility] Leukocytes, UA Negative Negative [facility] Urobilinogen, UA 0.2 0.2 - 1.0 mg/dL [facility] RBC, UA 2 /HPF [facility] WBC, UA 2 /HPF [facility] Mucus Rare [facility] Hyaline Casts, UA 4 /LPF [facility] Specimen Source [facility] Specimen Urine Performing Organization Address City/[facility]/Zipcode Phone Number [facility] [address] [place], [place] [phone] [facility] * POCT OCCULT BLOOD STOOL (GUIAC) [facility] ONLY (04/26/2018 6:40 PM CDT) Fecal Occult Blood Positive (A) Negative (Guiac), POC QC Result Acceptable?, QC Acceptable POC FOB Card Lot #, POC [id number] [id number] 05-17 FOB Developer Lot # [id number] 2019- Specimen Stool * Creatine Kinase (CK), Total and MB (not available at [facility] and [place]) (04/26/2018 5:36 PM CDT) Only the most recent of 2 results within the time period is included. Total CK 32 29 - 200 U/L [facility] CK-MB 1.9 0.0 - 6.6 ng/mL [facility] MB Relative Index 5.9 % [facility] Specimen Blood Narrative Performed At CK-MB Reference Range: [facility] <6.7Normal [facility] 6.7-10.0Borderline >10.0 Abnormal Performing Organization Address City/[facility] Phone Number [facility] [address] [place] [address] [facility] * CTA carotid (04/16/2018 1:26 PM CDT) Specimen Narrative Performed At FINAL REPORT [employer] [facility] CTA head and neck with contrast INDICATION: [...] right MCA M1 segment stenosis, moderate left CERAMICS ENGINEER P1 segment stenosis, and moderate to severe right EULALIA A2 segment stenosis. The right EULALIA A1 segment is hypoplastic or aplastic. The remaining proximal three affiliated of Raman vessels demonstrate no high grade [...] and right EULALIA A2 segment stenoses. No three affiliated of Raman major branch occlusion seen. 6. Cervical spine degenerative and postsurgical changes. Apparent posterior element hardware failure noted on cervical spine CT 11/01/2013 is grossly unchanged. 7. Left lung apex 6 mm nodule. Advise chest CT follow up. Signed: Shaw Orlando MD Report Verified Date/Time:04/16/2018 14:13:47 Reading Location: [address] Neuro Reading Room Procedure Note Interface, [...] right MCA M1 segment stenosis, moderate left CERAMICS ENGINEER P1 segment stenosis, and moderate to severe right EULALIA A2 segment stenosis. The right EULALIA A1 segment is hypoplastic or aplastic. The remaining proximal three affiliated of Raman vessels demonstrate no high grade [...] and right EULALIA A2 segment stenoses. No three affiliated of Raman major branch occlusion seen. 6. Cervical spine degenerative and postsurgical changes. Apparent posterior element hardware failure noted on cervical spine CT 11/01/2013 is grossly unchanged. 7. Left lung apex 6 mm nodule. Advise chest CT follow up. Signed: Shaw Orlando MD Report Verified Date/Time: 04/16/2018 14:13:47 Reading Location: [facility] C013 Neuro Reading Room Performing Organization Address City/State/Zipcode Phone Number [employer] * CTA brain (04/16/2018 1:26 PM CDT) Specimen Narrative Performed At FINAL REPORT [employer] CTA head and neck with contrast INDICATION: [...] right MCA M1 segment stenosis, moderate left CERAMICS ENGINEER P1 segment stenosis, and moderate to severe right EULALIA A2 segment stenosis. The right EULALIA A1 segment is hypoplastic or aplastic. The remaining proximal three affiliated of Raman vessels demonstrate no high grade [...] and right EULALIA A2 segment stenoses. No three affiliated of Raman major branch occlusion seen. 6. Cervical spine degenerative and postsurgical changes. Apparent posterior element hardware failure noted on cervical spine CT 11/01/2013 is grossly unchanged. 7. Left lung apex 6 mm nodule. Advise chest CT follow up. Signed: Shaw Orlando MD Report Verified Date/Time:04/16/2018 14:13:47 Reading Location: [address] Neuro Reading Room Procedure Note Interface, [...] right MCA M1 segment stenosis, moderate left CERAMICS ENGINEER P1 segment stenosis, and moderate to severe right EULALIA A2 segment stenosis. The right EULALIA A1 segment is hypoplastic or aplastic. The remaining proximal three affiliated of Raman vessels demonstrate no high grade [...] and right EULALIA A2 segment stenoses. No three affiliated of Raman major branch occlusion seen. 6. Cervical spine degenerative and postsurgical changes. Apparent posterior element hardware failure noted on cervical spine CT 11/01/2013 is grossly unchanged. 7. Left lung apex 6 mm nodule. Advise chest CT follow up. Signed: Shaw Orlando MD Report Verified Date/Time: 04/16/2018 14:13:47 Reading Location: [facility] C013V Neuro Reading Room Performing Organization Address City/State/Zipcode Phone Number [facility] * POC-Creatinine (04/16/2018 1:16 PM CDT) POC-Creatinine 0.8Comment: TESTED AT [facility] 0.6 - 1.3 mg/dL [address] POC-EGFR 94 mL/min/1.73M2 [facility] Specimen Blood Performing Organization Address City/[facility] Phone Number [address] [address] [facility] * Vancomycin level, trough (02/23/2018 8:47 PM CDT) Vancomycin Tr 15.4 10.0 - 20.0 ug/mL [facility] Specimen Blood Performing Organization Address City/[facility] Phone Number [address] [address] [facility] after 01/28/2018 Insurance Payer Benefit Subscriber ID Type Phone Address Plan / Group [facility] xxxxxxxxx MEDICARE MGD CARE MEDICARE HMO Advance Directives For more information, please contact: [address] [address] Date Inactivated Comments Code Status Date [...]
[2019-01-29 03:35] LABS: BACTERIA,URINE MANY /HPF; EPITHELIAL CELLS,URINE MODERATE /LPF; RBC,URINE 21-50 /HPF (0-5); WBC,URINE (MAN) >50 /HPF (0-5)
[2019-01-29] MEDS ORDERED: CHLORHEXIDINE473 ML (05:28)
[2019-01-29] MEDS ORDERED: RANITIDINE HCL150 MG PO (05:28)
[2019-01-29] MEDS ORDERED: DEXAMETHASONE0.75 MG (05:28)
[2019-01-29] MEDS ORDERED: ELIQUIS PO (05:28)
[2019-01-29] MEDS ORDERED: AMIODARONE HCL200 MG PO (05:28)
[2019-01-29] MEDS ORDERED: FUROSEMIDE40 MG PO (05:28)
[2019-01-29] MEDS ORDERED: FLOMAX0.4 MG (05:28)
[2019-01-29] MEDS ORDERED: LORAZEPAM0.5 MG PO (05:28)
[2019-01-29] MEDS ORDERED: SPIRIVA18 MCG (05:28)
[2019-01-29] MEDS ORDERED: LOPRESSOR25 MG PO (05:28)
[2019-01-29] MEDS ORDERED: CYMBALTA60 MG PO (05:28)
[2019-01-29] MEDS ORDERED: TAMSULOSIN PO (05:28)
[2019-01-29] MEDS ORDERED: HYDROCODON-ACE1 EAC9 (05:28)
[2019-01-29] MEDS ORDERED: CLOPIDOGREL75 MG PO (05:28)
[2019-01-29] MEDS ORDERED: CEPHALEXIN500 MG (05:28)
--- NOTE | 2019-01-29 06:06 | NUR ---
RECEIVED PATIENT AAOX3, TELE #10 V PACED. RESP EVEN AND UNLABORED. DENIES PAIN. LEFT AC 20G OCCLUDED, TO BE REMOVED AND TO NEW IV TO BE PLACED, AND NS TO BE CONTINUED AT 50CC/ML X 1L PER ORDERS. PATIENT HAS BLANCHABLE REDNESS TO SACRUM. NO SWELLING. PULSES PALPABLE. BED LOCKED AND IN LOWEST POSITION, CALL LIGHT WITHIN EASY REACH. BED ALARM ACTIVATED. INSTRUCTED TO CALL FOR ASSISTANCE NEEDED, PATIENT VERBALIZED UNDERSTANDING.
[2019-01-29 06:24] VITALS: BP 88/57
--- NOTE | 2019-01-29 06:27 | History and Physical ---
REASON FOR ADMISSION: 1. Syncope. 2. Sepsis secondary to urinary tract infection. HISTORY OF PRESENT ILLNESS: The patient is a 78-year-old gentleman, who had recent catheter removal for unknown reasons, who presented after syncopal episode where he was noticed to be dehydrated and evidence of sepsis secondary to urinary tract infection. So, he is being admitted for further evaluation and treatment. PAST MEDICAL HISTORY: Significant for coronary artery disease, chronic kidney disease stage 3. MEDICATIONS: See MAR. ALLERGIES: SEE MAR. SOCIAL HISTORY: Nonsmoker, nondrinker. FAMILY HISTORY: Noncontributory. PHYSICAL EXAMINATION: VITAL SIGNS: Temperature 98.6, blood pressure 112/66, pulse 74, sats 98% on room air. GENERAL: No apparent distress, lying in bed. NECK: Supple. CARDIOVASCULAR: Regular rate and rhythm. LUNGS: Clear to auscultation bilaterally. ABDOMEN: Good bowel sounds. Soft, nontender. EXTREMITIES: No clubbing, cyanosis. NEUROLOGICAL: Nonfocal. Moves all extremities x4. ASSESSMENT AND PLAN: 1. Sepsis secondary to urinary tract infection. We will continue with the IV antibiotics and wait for culture data. 2. Leukocytosis. We will continue to monitor. 3. Chronic kidney disease, stage 3. We will continue to monitor, especially after the fluids. 4. Hyperkalemia. We will recheck after fluids. 5. Syncopal episode, most likely secondary to the dehydration and sepsis. We will reassess after he has gotten fluids and antibiotics. 6. Coronary artery disease. Continue current care and monitoring. Please see hospital chart for full details. MD ANSELMO Rodriguez/PAN /[id number]
[2019-01-29] MEDS ORDERED: PRAVASTATIN SOD80 MG PO (06:55)
--- NOTE | 2019-01-29 07:12 | NUR ---
REPORT GIVEN TO ONCOMING NURSE. PATIENT IN STABLE CONDITION.
[2019-01-29 09:08] VITALS: BP 129/67
[2019-01-29 09:13] LABS: CREATINE KINASE MB 1.4 ng/mL (0-5.0)
[2019-01-29 12:00] VITALS: BP 142/65
[2019-01-29 17:07] VITALS: BP 140/66
[2019-01-29 17:09] LABS: CREATINE KINASE MB 1.4 ng/mL (0-5.0)
[2019-01-29] MEDS ORDERED: LORAZEPAM 0.5 MG TAB PO PRN ×2 (17:45)
[2019-01-29 20:00] VITALS: BP 150/67
[2019-01-29] MEDS: TAMSULOSIN HCL 0.4 MG CAP PO SCH (21:51)
[2019-01-29] MEDS: SIMVASTATIN 40 MG TAB PO SCH (21:51)
[2019-01-29 21:53] VITALS: BP 118/57
[2019-01-30] VITALS (8 sets, daily range): BP systolic 106–143; BP diastolic 56–70
[2019-01-30] MEDS: CEFTRIAXONE SOD 1 GM/NS 50 ML 50 ML IV SCH (04:05)
[2019-01-30 06:30] LABS: BASOPHILS % 0.3 % (0.0-1.0); EOSINOPHILS # (AUTO) 0.2 (0.0-0.4); EOSINOPHILS % 1.7 % (0.0-6.0); HEMATOCRIT 36.8 % (38.2-49.6); HEMOGLOBIN 11.1 g/dL (14.0-18.0); LYMPHOCYTES # (AUTO) 1.7 (1.0-3.2); LYMPHOCYTES % 16.2 % (18.0-39.1); MEAN CORPUSCULAR HEMOGLOBIN 24.8 pg (28-32); MEAN CORPUSCULAR HGB CONC 30.2 g/dL (31-35); MEAN CORPUSCULAR VOLUME 82.3 fL (81-99); MONOCYTES # (AUTO) 0.6 (0.2-0.8); MONOCYTES % 5.7 % (4.4-11.3); NEUTROPHILS # (AUTO) 8.1 (2.1-6.9); NEUTROPHILS % 75.4 % (38.7-80.0); PLATELET COUNT 297 x10e3/uL (140-360); RED BLOOD COUNT 4.47 x10e6/uL (4.3-5.7)
--- NOTE | 2019-01-30 06:59 | NUR ---
report given to oncoming nurse, patient resting in stable condition.
[2019-01-30 07:05] LABS: ALANINE AMINOTRANSFERASE 13 IU/L (0-55); ALBUMIN 3.1 g/dL (3.5-5.0); ALBUMIN/GLOBULIN RATIO 0.9 (0.8-2.0); ALKALINE PHOSPHATASE 69 IU/L (40-150); ANION GAP 15.5 mmol/L (8-16); BLOOD UREA NITROGEN 17 mg/dL (7-26); BUN/CREATININE RATIO 17 (6-25); CALCIUM 9.5 mg/dL (8.4-10.2); CARBON DIOXIDE 27 mmol/L (22-29); CHLORIDE 104 mmol/L (98-107); CREATININE, SERUM 1.01 mg/dL (0.72-1.25); EST GLOMERULAR FILTRATION RATE > 60 ML/MIN (60-); GLUCOSE 95 mg/dL (74-118); POTASSIUM 4.5 mmol/L (3.5-5.1); SODIUM 142 mmol/L (136-145)
[2019-01-30] MEDS ORDERED: NON-FORMULARY MEDICATION ([Tamsulosin] 0.4 MG) PO SCH ×2 (09:00)
[2019-01-30] MEDS ORDERED: FUROSEMIDE 40 MG TAB PO SCH (09:00)
[2019-01-30] MEDS ORDERED: NON-FORMULARY MEDICATION ([Eliquis] 5 MG) PO SCH (09:00)
[2019-01-30] MEDS ORDERED: METOPROLOL TARTRATE 25 MG TAB PO SCH (09:00)
[2019-01-30] MEDS ORDERED: NON-FORMULARY MEDICATION (Duloxetine Hcl (Cymbalta) 60 MG) PO SCH (09:00)
[2019-01-30] MEDS ORDERED: AMIODARONE HCL 200 MG TAB PO SCH (09:00)
[2019-01-30] MEDS ORDERED: CLOPIDOGREL BISULFATE 75 MG TAB PO SCH (09:00)
[2019-01-30] MEDS ORDERED: NON-FORMULARY MEDICATION (Ranitidine Hcl 150 MG) PO SCH (09:00)
[2019-01-30] MEDS: HYDROCODONE/APAP 10MG-325MG TAB PO PRN ×2 (09:44→16:15)
[2019-01-30] MEDS: FAMOTIDINE 20 MG TAB PO SCH ×2 (09:44→16:14)
[2019-01-30] MEDS: TIOTROPIUM 18 MCG INH POWDER INH SCH (09:44)
[2019-01-30] MEDS: CHLORHEXIDINE GLUCONATE 0.12% SOLN 473 ML BTL MT SCH (09:44)
[2019-01-30] MEDS: CLOPIDOGREL BISULFATE 75 MG TAB PO SCH (09:48)
[2019-01-30] MEDS: FUROSEMIDE 40 MG TAB PO SCH (09:48)
[2019-01-30] MEDS: APIXABAN 5 MG TABLET PO SCH ×2 (09:48→16:14)
[2019-01-30] MEDS: METOPROLOL TARTRATE 25 MG TAB PO SCH ×2 (09:48→16:14)
[2019-01-30] MEDS: AMIODARONE HCL 200 MG TAB PO SCH ×2 (09:49→16:14)
[2019-01-30] MEDS: DULOXETINE HCL 30 MG DELAYED RELEASE PO SCH ×2 (09:49→16:16)
[2019-01-30] MEDS ORDERED: SODIUM CHLORIDE 0.9% 250ML 250 ML ONE (11:33)
--- NOTE | 2019-01-30 19:14 | NUR ---
received report, patient aaox3, resting in bed. no needs voiced. bed locked and in lowest position, call light within reach. bed alarm activated.
--- NOTE | 2019-01-30 19:14 | NUR ---
BEDSIDE REPORT GIVEN TO [place], PATIENT ALERT AND ORIENT, DENIED PAIN.
[2019-01-30] MEDS: SIMVASTATIN 40 MG TAB PO SCH (21:30)
[2019-01-30] MEDS: TAMSULOSIN HCL 0.4 MG CAP PO SCH (21:30)
[2019-01-31] VITALS (13 sets, daily range): BP systolic 74–139; BP diastolic 48–67
[2019-01-31] MEDS: CEFTRIAXONE SOD 1 GM/NS 50 ML 50 ML IV SCH (03:54)
--- NOTE | 2019-01-31 07:05 | NUR ---
PT RESTING IN BED AA0X3 PT IS ON RA , NO SOB NOTED PT IS ON IV ABX FOR UTI TX PT AWARE TO ASK FOR ASSISTANCE FOR AMB PURPOSES WILL CONTINUE TO MONITOR PT CLOSELY, SIDE RAILSX2, BED WHEELS LOCKED CALL LIGHT IS WITHIN EASY REACH, INSTRUCTED TO CALL FOR ASSISTANCE IF NEEDED
[2019-01-31] MEDS: TIOTROPIUM 18 MCG INH POWDER INH SCH (07:40)
[2019-01-31] MEDS: HYDROCODONE/APAP 10MG-325MG TAB PO PRN ×2 (08:15→22:39)
[2019-01-31] MEDS: APIXABAN 5 MG TABLET PO SCH ×2 (08:15→17:13)
[2019-01-31] MEDS: METOPROLOL TARTRATE 25 MG TAB PO SCH ×2 (08:15→17:13)
[2019-01-31] MEDS: AMIODARONE HCL 200 MG TAB PO SCH ×2 (08:15→17:13)
[2019-01-31] MEDS: CLOPIDOGREL BISULFATE 75 MG TAB PO SCH (08:15)
[2019-01-31] MEDS: DULOXETINE HCL 30 MG DELAYED RELEASE PO SCH ×2 (08:15→17:13)
[2019-01-31] MEDS: FAMOTIDINE 20 MG TAB PO SCH ×2 (08:15→17:12)
[2019-01-31] MEDS: FUROSEMIDE 40 MG TAB PO SCH (08:15)
[2019-01-31] MEDS: CHLORHEXIDINE GLUCONATE 0.12% SOLN 473 ML BTL MT SCH (09:00)
--- NOTE | 2019-01-31 13:23 | NUR ---
CM TO THE PATIENT'S BEDSIDE TO DISCUSS PATIENT'S RIGHTS. IMM DISCUSSED AND QUESTIONS ANSWERED - PATIENT/FAMILY VEERBALIZED UNDERSTANDING OF DISCUSSION. SIGNATURE OBTAINED, COPY LEFT AT BEDSIDE AND PLACED IN PATIENT'S CHART.
--- NOTE | 2019-01-31 15:29 | NUR ---
pt c/o of dizziness spell upon using the bedside commode assisted pt back to bed orthostatic v/s taken per md vásquez positive results read laying 119/58 hr 61 sitting 107/57 hr 62 standing 74/48 hr 61 md vásquez aware orders 500cc bolus at this time
[2019-01-31] MEDS ORDERED: SODIUM CHLORIDE 0.9% 500ML 500 ML IV ONE (15:45)
--- NOTE | 2019-01-31 16:51 | NUR ---
BOLUS COMPLETE LAYING 112/57 HR 59 SITTING 88/53 HR 66 STANDING 91/55 HR 63
[2019-01-31] MEDS ORDERED: SODIUM CHLORIDE 0.9% 250ML 250 ML IV ONE (17:00)
[2019-01-31] MEDS ORDERED: SODIUM CHLORIDE 0.9% 250ML 250 ML ONE (17:06)
--- NOTE | 2019-01-31 17:41 | NUR ---
250CC NS BOLUS COMPLETE VS READ SUPINE 134/63 HR 61 SITTING 139/60 HR 61 STANDING 131/65 HR 61
[2019-01-31] MEDS: SIMVASTATIN 40 MG TAB PO SCH (21:10)
[2019-01-31] MEDS: TAMSULOSIN HCL 0.4 MG CAP PO SCH (22:11)
[2019-02-01] VITALS (8 sets, daily range): BP systolic 83–125; BP diastolic 51–72
--- NOTE | 2019-02-01 00:10 | NUR ---
Resting in the bed. voided in [facility].bed locked and in lowest position.phone and call light within reach.instructed to call for assistance as needed.
[2019-02-01] MEDS: CEFTRIAXONE SOD 1 GM/NS 50 ML 50 ML IV SCH (03:51)
[2019-02-01] MEDS: TIOTROPIUM 18 MCG INH POWDER INH SCH (06:00)
--- NOTE | 2019-02-01 07:07 | NUR ---
Bed side shift report given to the oncoming Rn.stable condition.
[2019-02-01] MEDS: CHLORHEXIDINE GLUCONATE 0.12% SOLN 473 ML BTL MT SCH (08:04)
[2019-02-01] MEDS: FAMOTIDINE 20 MG TAB PO SCH ×2 (08:04→17:21)
[2019-02-01] MEDS: DULOXETINE HCL 30 MG DELAYED RELEASE PO SCH ×2 (08:11→17:21)
[2019-02-01] MEDS: AMIODARONE HCL 200 MG TAB PO SCH ×2 (08:11→17:21)
[2019-02-01] MEDS: APIXABAN 5 MG TABLET PO SCH ×2 (08:11→17:21)
[2019-02-01] MEDS: CLOPIDOGREL BISULFATE 75 MG TAB PO SCH (08:12)
[2019-02-01] MEDS: METOPROLOL TARTRATE 25 MG TAB PO SCH ×2 (08:12→17:00)
[2019-02-01] MEDS: HYDROCODONE/APAP 10MG-325MG TAB PO PRN (08:15)
--- NOTE | 2019-02-01 20:28 | NUR ---
Patient is lethargic.allert.resting in the bed.assessment done.tele is placed.wearing life vest.no resp.distress.bed alarm on.bed locked and in lowest position.phone and call light within reach.instructed to call for assistance as needed.
[2019-02-01] MEDS: TAMSULOSIN HCL 0.4 MG CAP PO SCH (20:54)
[2019-02-01] MEDS: SIMVASTATIN 40 MG TAB PO SCH (20:54)
--- NOTE | 2019-02-01 21:57 | NUR ---
Ortho static vital signs noted.Lyeing bp 122/64 HR-61, siting BP 125/56 HR-62, standing 96/52 HR 52 SPO2 95%.keep monitor the pt.
[2019-02-02 00:31] VITALS: BP 106/55
[2019-02-02] MEDS: CEFTRIAXONE SOD 1 GM/NS 50 ML 50 ML IV SCH (03:30)
[2019-02-02 05:00] VITALS: BP 135/68
--- NOTE | 2019-02-02 07:00 | NUR ---
Bedside shift report given to the oncoming rn.stable condition.
--- NOTE | 2019-02-02 07:00 | NUR ---
BEDSIDE ROUNDS COMPLETE NO DISTRESS NOTED, UPDATED ON POC VOCIED UNDERSTANDING, PT IN STABLE CONDITION, DENIES PAIN AT THIS TIME, LIFE VEST IN PLACE, CALL LIGHT IN REACH WILL CONTINUE TO MONITOR
[2019-02-02] MEDS: TIOTROPIUM 18 MCG INH POWDER INH SCH (07:05)
[2019-02-02] MEDS: HYDROCODONE/APAP 10MG-325MG TAB PO PRN (07:38)
[2019-02-02] MEDS ORDERED: ONDANSETRON HCL 4 MG ORAL DISINTEGRATING TAB PO PRN (08:15)
[2019-02-02 08:37] VITALS: BP 138/64
[2019-02-02 08:38] VITALS: BP 100/56
[2019-02-02 08:39] VITALS: BP 123/60
[2019-02-02] MEDS: FAMOTIDINE 20 MG TAB PO SCH (08:40)
[2019-02-02 09:00] VITALS: BP 138/64
[2019-02-02] MEDS: CLOPIDOGREL BISULFATE 75 MG TAB PO SCH (09:00)
[2019-02-02] MEDS: APIXABAN 5 MG TABLET PO SCH (09:00)
[2019-02-02] MEDS: DULOXETINE HCL 30 MG DELAYED RELEASE PO SCH (09:00)
[2019-02-02] MEDS: METOPROLOL TARTRATE 25 MG TAB PO SCH (09:00)
[2019-02-02] MEDS: AMIODARONE HCL 200 MG TAB PO SCH (09:00)
--- NOTE | 2019-02-02 10:43 | NUR ---
IMM EXPLAINED TO PT, SIGNED BY PT AND PLACED IN CHART COPY TO PT IN CARE TRANSITIONS FOLDER
--- NOTE | 2019-02-04 03:30 | Discharge Summary ---
DISCHARGE DIAGNOSES: 1. Sepsis secondary to urinary tract infection with Escherichia coli. 2. Orthostatic hypotension. 3. History of congestive heart failure, systolic. 4. Leukocytosis. 5. Anemia. 6. Hyperlipidemia. 7. Benign prostatic hypertrophy. 8. Chronic obstructive pulmonary disease. HISTORY OF PRESENT ILLNESS AND HOSPITAL COURSE: See hospital chart for full details. The patient is a gentleman, who had recent instrumentation of his bladder with a Trejo catheter, who presented with some orthostatic symptoms, where he was noticed to be dehydrated and orthostatic, which responded well to IV fluids. He did have a urine culture that did grow out E coli. He was initially started on antibiotics and at the time of discharge, he was switched over to p.o. medications with Bactrim DS one p.o. b.i.d. for 10 more days. At the time of discharge, he was feeling very well. He wanted to go home. He was no longer orthostatic and he is to follow up with his PCP as well as Cardiology in 1 to 2 weeks. Please see hospital chart for full details. MD ANSELMO Rodriguez/PAN /[id number]
== END 2019-02-02 11:18 | disposition home or self-care (01) | DRG 872 ==
LOC: ER 23:24 → ERHOLD 01-29 03:22 → MED/SURG 01-29 06:06
PROVIDERS: ADMIT Internal Medicine; ATTEND Internal Medicine
DX: A41.51 Sepsis due to Escherichia coli [E. coli] (principal); N39.0 Urinary tract infection, site not specified; I13.0 Hypertensive heart and chronic kidney disease with heart failure and stage 1 through stage 4 chronic kidney disease, or unspecified chronic kidney disease; I50.22 Chronic systolic (congestive) heart failure; N18.3 Chronic kidney disease, stage 3 (moderate); E87.5 Hyperkalemia; I25.10 Atherosclerotic heart disease of native coronary artery without angina pectoris; E86.0 Dehydration; D64.9 Anemia, unspecified; I95.1 Orthostatic hypotension; N40.0 Benign prostatic hyperplasia without lower urinary tract symptoms; J44.9 Chronic obstructive pulmonary disease, unspecified
CPT/HCPCS: 36415; 70450; 71045; 80053; 81001; 82550; 82553; 83605; 83880; 84484; 85025; 87086; 87186; 93005; 94664; 96361; 99284; J0696; J7030; J7040; J7050

== ENCOUNTER 2020-10-23 17:02 | Emergency (ER) | payer MEDICARE ==
[~2020-10-23] VITALS: Ht 182.9 cm; Wt 81.6 kg
[~2020-10-23 17:02] MED LIST: AMIODARONE HCL200 MG PO; CEPHALEXIN500 MG; CHLORHEXIDINE473 ML; CLOPIDOGREL75 MG PO; CYMBALTA60 MG PO; DEXAMETHASONE0.75 MG; ELIQUIS PO; FLOMAX0.4 MG; FUROSEMIDE40 MG PO; HYDROCODON-ACE1 EAC9; LOPRESSOR25 MG PO; LORAZEPAM0.5 MG PO; PRAVASTATIN SOD80 MG PO; RANITIDINE HCL150 MG PO; SPIRIVA18 MCG; TAMSULOSIN PO
[2020-10-23] MEDS ORDERED: SODIUM CHLORIDE 0.9% 1000ML 1,000 ML IV ONE ×2 (17:15→21:00)
[2020-10-23] MEDS ORDERED: NALOXONE HCL INJ 0.4 MG/ML AMP ONE (17:19)
[2020-10-23 18:08] LABS: BASOPHILS % 0.1 % (0.0-1.0); EOSINOPHILS # (AUTO) 0.2 (0.0-0.4); EOSINOPHILS % 1.1 % (0.0-6.0); HEMATOCRIT 45.6 % (38.2-49.6); HEMOGLOBIN 14.4 g/dL (14.0-18.0); LYMPHOCYTES # (AUTO) 2.3 (1.0-3.2); LYMPHOCYTES % 16.3 % (18.0-39.1); MEAN CORPUSCULAR HEMOGLOBIN 28.4 pg (28-32); MEAN CORPUSCULAR HGB CONC 31.6 g/dL (31-35); MEAN CORPUSCULAR VOLUME 89.9 fL (81-99); MONOCYTES # (AUTO) 0.6 (0.2-0.8); MONOCYTES % 4.3 % (4.4-11.3); NEUTROPHILS # (AUTO) 10.8 (2.1-6.9); NEUTROPHILS % 77.3 % (38.7-80.0); PLATELET COUNT 265 x10e3/uL (140-360); RED BLOOD COUNT 5.07 x10e6/uL (4.3-5.7); RED CELL DISTRIBUTION WIDTH 13.7 % (11.7-14.4)
[2020-10-23 18:23] LABS: ALBUMIN 3.4 g/dL (3.5-5.0); ALBUMIN/GLOBULIN RATIO 0.9 (0.8-2.0); ANION GAP 13.2 mmol/L (8-16); CALCIUM 8.8 mg/dL (8.4-10.2); CREATININE, SERUM 1.37 mg/dL (0.72-1.25); POTASSIUM 4.2 mmol/L (3.5-5.1)
[2020-10-23] MEDS ORDERED: CEFTRIAXONE SOD 1 GM/50 ML BAG IV ONE (19:30)
[2020-10-23] MEDS ORDERED: AZITHROMYCIN 500MG/NS 250 ML 250 ML IV ONE (19:30)
[2020-10-23] MEDS ORDERED: CEFTRIAXONE SOD 1 GM in SODIUM CHLORIDE 0.9% 50ML 50 ML IV ONE (19:45)
[2020-10-23 21:48] VITALS: BP 128/69
== END 2020-10-24 00:10 | disposition other institution (70) ==
LOC: ER 17:24
DX: J18.9 Pneumonia, unspecified organism (principal); D72.829 Elevated white blood cell count, unspecified; R53.1 Weakness; R41.82 Altered mental status, unspecified; T39.1X5A Adverse effect of 4-Aminophenol derivatives, initial encounter; R94.31 Abnormal electrocardiogram [ECG] [EKG]; I10 Essential (primary) hypertension; E78.5 Hyperlipidemia, unspecified; F41.9 Anxiety disorder, unspecified; K21.9 Gastro-esophageal reflux disease without esophagitis; Z95.810 Presence of automatic (implantable) cardiac defibrillator; Z20.822 Contact with and (suspected) exposure to COVID-19
CPT/HCPCS: 36415; 70450; 71045; 80053; 82550; 82553; 83605; 84484; 85025; 87040; 93005; 99285; J0456; J0696; J2310; J7030; U0002

== ENCOUNTER 2021-04-01 14:58 | Inpatient (IN) | payer MEDICARE ==
[~2021-04-01] VITALS: Ht 200.7 cm; Wt 81.6 kg
[~2021-04-01 14:58] MED LIST changes: -FLOMAX0.4 MG; +FLOMAX0.4 MG PO
[2021-04-01] MEDS ORDERED: SODIUM CHLORIDE 0.9% 1000ML 1,000 ML IV STA (15:17)
[2021-04-01 15:44] LABS: BASOPHILS % 0.2 % (0.0-1.0); EOSINOPHILS # (AUTO) 0.1 (0.0-0.4); EOSINOPHILS % 0.7 % (0.0-6.0); HEMATOCRIT 46.1 % (38.2-49.6); HEMOGLOBIN 13.7 g/dL (14.0-18.0); LYMPHOCYTES # (AUTO) 2.2 (1.0-3.2); LYMPHOCYTES % 18.3 % (18.0-39.1); MEAN CORPUSCULAR HEMOGLOBIN 27.7 pg (28-32); MEAN CORPUSCULAR HGB CONC 29.7 g/dL (31-35); MEAN CORPUSCULAR VOLUME 93.1 fL (81-99); MONOCYTES # (AUTO) 0.7 (0.2-0.8); MONOCYTES % 6.1 % (4.4-11.3); NEUTROPHILS # (AUTO) 8.9 (2.1-6.9); NEUTROPHILS % 74.1 % (38.7-80.0); PLATELET COUNT 239 x10e3/uL (140-360); RED BLOOD COUNT 4.95 x10e6/uL (4.3-5.7); RED CELL DISTRIBUTION WIDTH 15.3 % (11.7-14.4)
[2021-04-01 15:46] LABS: INR 1.25
[2021-04-01 15:47] LABS: PARTIAL THROMBOPLASTIN TIME 42.8 seconds (23.8-35.5)
[2021-04-01 15:52] LABS: SALICYLATE < 5.0 mg/dL (0-30)
[2021-04-01 15:56] LABS: ALBUMIN 2.8 g/dL (3.5-5.0); ALBUMIN/GLOBULIN RATIO 0.7 (0.8-2.0); ANION GAP 14.8 mmol/L (8-16); CALCIUM 9.9 mg/dL (8.4-10.2); CREATININE, SERUM 1.19 mg/dL (0.72-1.25); MAGNESIUM 2.2 MG/DL (1.3-2.1); POTASSIUM 3.8 mmol/L (3.5-5.1)
[2021-04-01 16:03] LABS: CREATINE KINASE MB 14.4 ng/mL (0-5.0)
[2021-04-01 16:07] LABS: B-TYPE NATRIURETIC PEPTIDE2 285.8 pg/mL (0-100)
[2021-04-01] MEDS ORDERED: SODIUM CHLORIDE 0.9% 1000ML 1,000 ML IV ONE (16:15)
[2021-04-01] MEDS ORDERED: NALOXONE HCL INJ 0.4 MG/ML AMP IV ONE (17:00)
[2021-04-01] MEDS ORDERED: CEFTRIAXONE 1 GM in SODIUM CHLORIDE 0.9% 50ML 50 ML IV ONE (17:00)
[2021-04-01 17:05] LABS: AMPHETAMINES SCREEN,URINE NEGATIVE (NEGATIVE); BENZODIAZEPINES SCREEN,URINE POSITIVE (NEGATIVE); PHENCYCLIDINE SCREEN,URINE NEGATIVE (NEGATIVE)
[2021-04-01 17:06] LABS: CLARITY,URINE CLEAR (CLEAR); COLOR,URINE STRAW (YELLOW); LEUKOCYTE ESTERASE ,URINE NEGATIVE (NEGATIVE); NITRITE,URINE NEGATIVE (NEGATIVE)
[2021-04-01 17:07] LABS: KETONES,URINE NEGATIVE (NEGATIVE); PROTEIN,URINE DIPSTICK TRACE (NEGATIVE); URINE UROBILINOGEN 1 mg/dL (0.2 - 1)
[2021-04-01 17:15] LABS: AMORPHOUS SEDIMENT,URINE MODERATE (FEW); BACTERIA,URINE MODERATE /HPF; HYALINE CASTS 0-1 (0-1); MUCUS,URINE MANY (RARE)
[2021-04-01] MEDS ORDERED: ONDANSETRON HCL INJ 2MG/ML 2ML 2 MG/ML VIAL IV PRN (18:30)
[2021-04-01] MEDS: SODIUM CHLORIDE 0.9% 1000ML 1,000 ML IV SCH (21:01)
[2021-04-01] MEDS: FAMOTIDINE 20 MG/2 ML VIAL IV SCH (21:01)
[2021-04-01 22:23] VITALS: BP 117/87
[2021-04-01 22:50] VITALS: BP 97/50
[2021-04-02] VITALS (8 sets, daily range): BP systolic 97–173; BP diastolic 50–87
[2021-04-02 03:12] LABS: CREATINE KINASE MB 7.3 ng/mL (0-5.0)
[2021-04-02] MEDS ORDERED: ATORVASTATIN CA20 MG PO (03:58)
[2021-04-02] MEDS ORDERED: LYRICA75 MG PO (03:58)
[2021-04-02] MEDS ORDERED: VASCEPA1 GM PO (05:46)
[2021-04-02] MEDS ORDERED: ZANAFLEX4 MG PO (05:46)
[2021-04-02] MEDS ORDERED: LEVOFLOXACIN250 MG PO (05:46)
[2021-04-02] MEDS ORDERED: LISINOPRIL2.5 MG PO (05:46)
[2021-04-02] MEDS ORDERED: FLUOXETINE HCL20 MG PO (05:46)
[2021-04-02] MEDS ORDERED: CENTRUM ADULTS1 EACH PO (05:46)
[2021-04-02] MEDS ORDERED: LYRICA50 MG PO (05:46)
[2021-04-02] MEDS ORDERED: BENZONATATE100 MG PO (05:46)
[2021-04-02] MEDS ORDERED: METOPROLOL SUCC50 MG PO (05:46)
[2021-04-02 06:27] LABS: BASOPHILS % 0.2 % (0.0-1.0); EOSINOPHILS # (AUTO) 0.1 (0.0-0.4); EOSINOPHILS % 1.2 % (0.0-6.0); HEMATOCRIT 39.1 % (38.2-49.6); HEMOGLOBIN 11.8 g/dL (14.0-18.0); LYMPHOCYTES # (AUTO) 1.4 (1.0-3.2); LYMPHOCYTES % 12.6 % (18.0-39.1); MEAN CORPUSCULAR HEMOGLOBIN 27.6 pg (28-32); MEAN CORPUSCULAR HGB CONC 30.2 g/dL (31-35); MEAN CORPUSCULAR VOLUME 91.4 fL (81-99); MONOCYTES # (AUTO) 0.7 (0.2-0.8); MONOCYTES % 5.9 % (4.4-11.3); NEUTROPHILS # (AUTO) 8.8 (2.1-6.9); NEUTROPHILS % 79.5 % (38.7-80.0); PLATELET COUNT 230 x10e3/uL (140-360); RED BLOOD COUNT 4.28 x10e6/uL (4.3-5.7); RED CELL DISTRIBUTION WIDTH 14.6 % (11.7-14.4)
[2021-04-02] MEDS: FAMOTIDINE 20 MG/2 ML VIAL IV SCH ×2 (06:33→16:52)
[2021-04-02 07:02] LABS: CREATINE KINASE MB 6.4 ng/mL (0-5.0)
[2021-04-02 07:10] LABS: THYROID STIMULATING HORMONE 0.641 uIU/mL (0.350-4.940)
[2021-04-02 07:18] LABS: ALBUMIN 2.5 g/dL (3.5-5.0); ALBUMIN/GLOBULIN RATIO 0.7 (0.8-2.0); ANION GAP 13.3 mmol/L (8-16); CALCIUM 8.4 mg/dL (8.4-10.2); CREATININE, SERUM 0.71 mg/dL (0.72-1.25); POTASSIUM 3.3 mmol/L (3.5-5.1)
[2021-04-02 07:19] LABS: CHOL/HDL RATIO 5.5 (3.9-4.7); MAGNESIUM 1.7 MG/DL (1.3-2.1)
[2021-04-02] MEDS ORDERED: TIZANIDINE HCL 4 MG TAB PO PRN (07:30)
[2021-04-02] MEDS ORDERED: BENZONATATE 100 MG CAP PO PRN (07:30)
[2021-04-02] MEDS ORDERED: DULOXETINE HCL 30 MG DELAYED RELEASE PO SCH (09:00)
[2021-04-02] MEDS: LISINOPRIL 2.5 MG TAB PO SCH (09:10)
[2021-04-02] MEDS: FUROSEMIDE 40 MG TAB PO SCH (09:10)
[2021-04-02] MEDS: METOPROLOL SUCCINATE 50 MG TAB XL PO SCH (09:11)
[2021-04-02] MEDS: SODIUM CHLORIDE 0.9% 1000ML 1,000 ML IV SCH ×2 (10:00→22:04)
[2021-04-02] MEDS ORDERED: POTASSIUM CHLORIDE 10MEQ/100ML 100 ML IV ONE (11:45)
[2021-04-02] MEDS: FLUOXETINE HCL 20 MG CAP PO SCH (12:00)
[2021-04-02 16:09] LABS: CREATINE KINASE MB 4.6 ng/mL (0-5.0)
[2021-04-02] MEDS: ATORVASTATIN 20 MG TAB PO SCH (21:00)
[2021-04-03] VITALS (7 sets, daily range): BP systolic 117–189; BP diastolic 59–94
[2021-04-03] MEDS: HYDRALAZINE HCL 20 MG/ML VIAL IV PRN ×2 (01:09→05:55)
[2021-04-03] MEDS: SODIUM CHLORIDE 0.9% 1000ML 1,000 ML IV SCH (02:50)
[2021-04-03 05:43] LABS: BASOPHILS % 0.2 % (0.0-1.0); EOSINOPHILS # (AUTO) 0.1 (0.0-0.4); EOSINOPHILS % 0.6 % (0.0-6.0); HEMATOCRIT 39.5 % (38.2-49.6); HEMOGLOBIN 12.6 g/dL (14.0-18.0); LYMPHOCYTES # (AUTO) 1.5 (1.0-3.2); LYMPHOCYTES % 13.1 % (18.0-39.1); MEAN CORPUSCULAR HEMOGLOBIN 27.8 pg (28-32); MEAN CORPUSCULAR HGB CONC 31.9 g/dL (31-35); MEAN CORPUSCULAR VOLUME 87.2 fL (81-99); MONOCYTES # (AUTO) 0.7 (0.2-0.8); MONOCYTES % 6.1 % (4.4-11.3); NEUTROPHILS # (AUTO) 9.1 (2.1-6.9); NEUTROPHILS % 79.3 % (38.7-80.0); PLATELET COUNT 265 x10e3/uL (140-360); RED BLOOD COUNT 4.53 x10e6/uL (4.3-5.7)
[2021-04-03] MEDS: FAMOTIDINE 20 MG/2 ML VIAL IV SCH ×2 (05:48→17:46)
[2021-04-03 06:04] LABS: ALBUMIN 2.5 g/dL (3.5-5.0); ALBUMIN/GLOBULIN RATIO 0.7 (0.8-2.0); ANION GAP 14.8 mmol/L (8-16); CALCIUM 8.5 mg/dL (8.4-10.2); CREATININE, SERUM 0.72 mg/dL (0.72-1.25)
[2021-04-03 06:17] LABS: POTASSIUM 2.8 mmol/L (3.5-5.1)
[2021-04-03] MEDS: METOPROLOL SUCCINATE 50 MG TAB XL PO SCH (09:15)
[2021-04-03] MEDS: LISINOPRIL 2.5 MG TAB PO SCH (09:15)
[2021-04-03] MEDS: FUROSEMIDE 40 MG TAB PO SCH (09:15)
[2021-04-03] MEDS: FLUOXETINE HCL 20 MG CAP PO SCH (09:16)
[2021-04-03] MEDS: BALSAM PERU/CASTOR OIL 60 GM OINT...G. TP SCH (10:23)
[2021-04-03] MEDS ORDERED: SODIUM BICARBONATE IV SCH (11:30)
[2021-04-03] MEDS ORDERED: POTASSIUM CHLORIDE IV SCH (11:30)
[2021-04-03] MEDS ORDERED: [UNRECOGNIZED DRUG - OTHER] IV SCH (11:30)
[2021-04-03] MEDS: [UNRECOGNIZED DRUG - OTHER] IV SCH (13:00)
[2021-04-03] MEDS: POTASSIUM CHLORIDE IV SCH (13:00)
[2021-04-03] MEDS: SODIUM BICARBONATE IV SCH (13:00)
[2021-04-03] MEDS ORDERED: MAGNESIUM SULF 1GRAM/DEXTROSE 100 ML IV ONE (13:30)
[2021-04-03] MEDS: AMOXICILLIN/CLAVULANATE K 875 MG TAB PO SCH ×2 (13:30→19:39)
[2021-04-03] MEDS: ATORVASTATIN 20 MG TAB PO SCH (19:39)
[2021-04-04] VITALS (8 sets, daily range): BP systolic 132–184; BP diastolic 69–97
[2021-04-04] MEDS: FAMOTIDINE 20 MG/2 ML VIAL IV SCH ×2 (05:35→17:04)
[2021-04-04 05:54] LABS: BASOPHILS % 0.3 % (0.0-1.0); EOSINOPHILS # (AUTO) 0.1 (0.0-0.4); EOSINOPHILS % 1.2 % (0.0-6.0); HEMATOCRIT 41.6 % (38.2-49.6); HEMOGLOBIN 13.2 g/dL (14.0-18.0); LYMPHOCYTES # (AUTO) 1.6 (1.0-3.2); MEAN CORPUSCULAR HEMOGLOBIN 27.6 pg (28-32); MEAN CORPUSCULAR HGB CONC 31.7 g/dL (31-35); MEAN CORPUSCULAR VOLUME 86.8 fL (81-99); MONOCYTES # (AUTO) 0.7 (0.2-0.8); MONOCYTES % 6.6 % (4.4-11.3); NEUTROPHILS # (AUTO) 8.6 (2.1-6.9); NEUTROPHILS % 77.4 % (38.7-80.0); PLATELET COUNT 316 x10e3/uL (140-360); RED BLOOD COUNT 4.79 x10e6/uL (4.3-5.7); RED CELL DISTRIBUTION WIDTH 14.3 % (11.7-14.4)
[2021-04-04 06:28] LABS: ANION GAP 16.2 mmol/L (8-16); CALCIUM 8.8 mg/dL (8.4-10.2); CREATININE, SERUM 0.76 mg/dL (0.72-1.25); MAGNESIUM 1.8 MG/DL (1.3-2.1); PHOSPHORUS 1.9 MG/DL (2.3-4.7); POTASSIUM 3.2 mmol/L (3.5-5.1)
[2021-04-04] MEDS: FLUOXETINE HCL 20 MG CAP PO SCH (09:00)
[2021-04-04] MEDS: METOPROLOL SUCCINATE 50 MG TAB XL PO SCH (09:00)
[2021-04-04] MEDS: FUROSEMIDE 40 MG TAB PO SCH (09:00)
[2021-04-04] MEDS: LISINOPRIL 2.5 MG TAB PO SCH (09:00)
[2021-04-04] MEDS: AMOXICILLIN/CLAVULANATE K 875 MG TAB PO SCH ×2 (09:00→20:37)
[2021-04-04] MEDS ORDERED: POTASSIUM PHOSPHATE 15 MM in SODIUM CHLORIDE 0.9% 250ML 250 ML IV ONE (13:00)
[2021-04-04] MEDS: POTASSIUM CHLORIDE IV SCH ×2 (13:16→17:42)
[2021-04-04] MEDS: SODIUM BICARBONATE IV SCH ×2 (13:16→17:42)
[2021-04-04] MEDS: [UNRECOGNIZED DRUG - OTHER] IV SCH ×2 (13:16→17:42)
[2021-04-04] MEDS: BALSAM PERU/CASTOR OIL 60 GM OINT...G. TP SCH (17:01)
[2021-04-04] MEDS: HYDRALAZINE HCL 20 MG/ML VIAL IV PRN (20:25)
[2021-04-04] MEDS: ATORVASTATIN 20 MG TAB PO SCH (20:37)
[2021-04-05] VITALS (8 sets, daily range): BP systolic 127–175; BP diastolic 79–93
[2021-04-05] MEDS: HYDRALAZINE HCL 20 MG/ML VIAL IV PRN (04:48)
[2021-04-05] MEDS: FAMOTIDINE 20 MG/2 ML VIAL IV SCH ×2 (06:24→17:33)
[2021-04-05 06:25] LABS: BASOPHILS % 0.4 % (0.0-1.0); EOSINOPHILS # (AUTO) 0.1 (0.0-0.4); EOSINOPHILS % 0.8 % (0.0-6.0); LYMPHOCYTES # (AUTO) 1.8 (1.0-3.2); LYMPHOCYTES % 17.9 % (18.0-39.1); MEAN CORPUSCULAR HEMOGLOBIN 27.5 pg (28-32); MEAN CORPUSCULAR HGB CONC 31.7 g/dL (31-35); MEAN CORPUSCULAR VOLUME 86.9 fL (81-99); MONOCYTES # (AUTO) 0.7 (0.2-0.8); MONOCYTES % 7.6 % (4.4-11.3); NEUTROPHILS # (AUTO) 7.1 (2.1-6.9); NEUTROPHILS % 72.3 % (38.7-80.0); PLATELET COUNT 368 x10e3/uL (140-360); RED BLOOD COUNT 4.72 x10e6/uL (4.3-5.7); RED CELL DISTRIBUTION WIDTH 14.4 % (11.7-14.4)
[2021-04-05 06:44] LABS: ANION GAP 15.4 mmol/L (8-16); CALCIUM 8.7 mg/dL (8.4-10.2); CREATININE, SERUM 0.73 mg/dL (0.72-1.25); PHOSPHORUS 2.6 MG/DL (2.3-4.7); POTASSIUM 3.4 mmol/L (3.5-5.1)
[2021-04-05] MEDS: FUROSEMIDE 40 MG TAB PO SCH (09:00)
[2021-04-05] MEDS: METOPROLOL SUCCINATE 50 MG TAB XL PO SCH (09:00)
[2021-04-05] MEDS: FLUOXETINE HCL 20 MG CAP PO SCH (09:00)
[2021-04-05] MEDS: AMOXICILLIN/CLAVULANATE K 875 MG TAB PO SCH (09:00)
[2021-04-05] MEDS: BALSAM PERU/CASTOR OIL 60 GM OINT...G. TP SCH ×2 (09:00→20:12)
[2021-04-05] MEDS: LISINOPRIL 2.5 MG TAB PO SCH (09:00)
[2021-04-05] MEDS: [UNRECOGNIZED DRUG - OTHER] IV SCH (10:37)
[2021-04-05] MEDS: POTASSIUM CHLORIDE IV SCH (10:37)
[2021-04-05] MEDS: SODIUM BICARBONATE IV SCH (10:37)
[2021-04-05] MEDS: ONDANSETRON HCL INJ 2MG/ML 2ML 2 MG/ML VIAL IV PRN ×2 (14:50→21:00)
[2021-04-05] MEDS: MORPHINE SULFATE INJ 2 MG/ML SYR IV PRN ×2 (14:50→21:00)
[2021-04-05] MEDS ORDERED: PIPERACILLIN/TAZOBACTAM 3.375 GM in SODIUM CHLORIDE 0.9% 50ML 50 ML IV SCH (18:00)
[2021-04-05] MEDS: ENOXAPARIN INJ 80 MG/0.8 ML SYR SC SCH (18:00)
[2021-04-05] MEDS: PIPERACILLIN/TAZOBACTAM 3.375 GM in SODIUM CHLORIDE 0.9% 50ML 50 ML IV SCH (20:12)
[2021-04-05] MEDS: ATORVASTATIN 20 MG TAB PO SCH (20:12)
[2021-04-06] VITALS (7 sets, daily range): BP systolic 123–191; BP diastolic 65–103
[2021-04-06] MEDS: [UNRECOGNIZED DRUG - OTHER] IV SCH ×2 (01:52→13:30)
[2021-04-06] MEDS: SODIUM BICARBONATE IV SCH ×2 (01:52→13:30)
[2021-04-06] MEDS: POTASSIUM CHLORIDE IV SCH ×2 (01:52→13:30)
[2021-04-06] MEDS: PIPERACILLIN/TAZOBACTAM 3.375 GM in SODIUM CHLORIDE 0.9% 50ML 50 ML IV SCH ×4 (03:19→20:12)
[2021-04-06] MEDS: ENOXAPARIN INJ 80 MG/0.8 ML SYR SC SCH ×2 (05:40→18:00)
[2021-04-06] MEDS: FAMOTIDINE 20 MG/2 ML VIAL IV SCH ×2 (05:40→18:00)
[2021-04-06 06:23] LABS: BASOPHILS % 0.4 % (0.0-1.0); EOSINOPHILS # (AUTO) 0.1 (0.0-0.4); EOSINOPHILS % 1.5 % (0.0-6.0); HEMOGLOBIN 12.7 g/dL (14.0-18.0); LYMPHOCYTES % 10.5 % (18.0-39.1); MEAN CORPUSCULAR HEMOGLOBIN 27.6 pg (28-32); MEAN CORPUSCULAR HGB CONC 31.8 g/dL (31-35); MONOCYTES # (AUTO) 0.6 (0.2-0.8); MONOCYTES % 5.9 % (4.4-11.3); NEUTROPHILS # (AUTO) 7.8 (2.1-6.9); PLATELET COUNT 323 x10e3/uL (140-360); RED CELL DISTRIBUTION WIDTH 14.3 % (11.7-14.4)
[2021-04-06 06:53] LABS: ANION GAP 16.9 mmol/L (8-16); CALCIUM 8.8 mg/dL (8.4-10.2); CREATININE, SERUM 0.78 mg/dL (0.72-1.25); MAGNESIUM 1.6 MG/DL (1.3-2.1); PHOSPHORUS 3.3 MG/DL (2.3-4.7); POTASSIUM 3.9 mmol/L (3.5-5.1)
[2021-04-06] MEDS: HYDRALAZINE HCL 20 MG/ML VIAL IV PRN (07:54)
[2021-04-06 08:30] LABS: INR 1.14; PROTHROMBIN TIME 15.1 seconds (11.9-14.5)
[2021-04-06] MEDS: FLUOXETINE HCL 20 MG CAP PO SCH (09:00)
[2021-04-06] MEDS: LISINOPRIL 2.5 MG TAB PO SCH (09:00)
[2021-04-06] MEDS: FUROSEMIDE 40 MG TAB PO SCH (09:00)
[2021-04-06] MEDS: METOPROLOL SUCCINATE 50 MG TAB XL PO SCH (09:00)
[2021-04-06] MEDS ORDERED: LIDOCAINE HCL 1% LOCAL INJ 20 ML VIAL ONE (09:52)
[2021-04-06] MEDS ORDERED: SODIUM CHLORIDE 0.9% 250ML 0 ML ONE (09:52)
[2021-04-06] MEDS: MORPHINE SULFATE INJ 2 MG/ML SYR IV PRN (20:11)
[2021-04-06] MEDS: ONDANSETRON HCL INJ 2MG/ML 2ML 2 MG/ML VIAL IV PRN (20:12)
[2021-04-06] MEDS: ATORVASTATIN 20 MG TAB PO SCH (21:00)
[2021-04-06] MEDS: BALSAM PERU/CASTOR OIL 60 GM OINT...G. TP SCH (22:30)
[2021-04-07] VITALS (7 sets, daily range): BP systolic 110–197; BP diastolic 71–89
[2021-04-07] MEDS: PIPERACILLIN/TAZOBACTAM 3.375 GM in SODIUM CHLORIDE 0.9% 50ML 50 ML IV SCH ×4 (03:56→20:00)
[2021-04-07] MEDS: MORPHINE SULFATE INJ 2 MG/ML SYR IV PRN ×2 (03:56→20:49)
[2021-04-07] MEDS: FAMOTIDINE 20 MG/2 ML VIAL IV SCH ×2 (06:03→18:30)
[2021-04-07] MEDS: ENOXAPARIN INJ 80 MG/0.8 ML SYR SC SCH ×2 (06:03→18:00)
[2021-04-07] MEDS: SODIUM CHLORIDE 0.9% 1000ML 1,000 ML IV SCH (08:21)
[2021-04-07] MEDS: HYDRALAZINE HCL 20 MG/ML VIAL IV PRN (08:33)
[2021-04-07] MEDS: FUROSEMIDE 40 MG TAB PO SCH (08:34)
[2021-04-07] MEDS: FLUOXETINE HCL 20 MG CAP PO SCH (08:35)
[2021-04-07] MEDS: METOPROLOL SUCCINATE 50 MG TAB XL PO SCH (08:35)
[2021-04-07] MEDS: LISINOPRIL 2.5 MG TAB PO SCH (08:35)
[2021-04-07] MEDS: ATORVASTATIN 20 MG TAB PO SCH (20:45)
[2021-04-07] MEDS: ONDANSETRON HCL INJ 2MG/ML 2ML 2 MG/ML VIAL IV PRN (20:49)
[2021-04-07] MEDS: BALSAM PERU/CASTOR OIL 60 GM OINT...G. TP SCH (21:00)
[2021-04-07] MEDS ORDERED: PHYTONADIONE 10 MG/ML AMP IV ONE (21:00)
[2021-04-07] MEDS ORDERED: PHYTONADIONE 10MG/ML 20 MG in SODIUM CHLORIDE 0.9% 100 ML SC ONE (21:15)
[2021-04-08] VITALS (8 sets, daily range): BP systolic 149–205; BP diastolic 71–103
[2021-04-08] MEDS: PIPERACILLIN/TAZOBACTAM 3.375 GM in SODIUM CHLORIDE 0.9% 50ML 50 ML IV SCH ×4 (01:53→21:01)
[2021-04-08] MEDS: SODIUM CHLORIDE 0.9% 1000ML 1,000 ML IV SCH ×2 (03:30→23:57)
[2021-04-08] MEDS: FAMOTIDINE 20 MG/2 ML VIAL IV SCH ×2 (04:15→18:17)
[2021-04-08] MEDS: FLUOXETINE HCL 20 MG CAP PO SCH (07:49)
[2021-04-08] MEDS: FUROSEMIDE 40 MG TAB PO SCH (07:49)
[2021-04-08] MEDS: METOPROLOL SUCCINATE 50 MG TAB XL PO SCH (07:49)
[2021-04-08] MEDS: LISINOPRIL 2.5 MG TAB PO SCH (07:49)
[2021-04-08] MEDS: HYDRALAZINE HCL 20 MG/ML VIAL IV PRN (15:34)
[2021-04-08] MEDS: MORPHINE SULFATE INJ 2 MG/ML SYR IV PRN ×2 (16:37→23:57)
[2021-04-08] MEDS: ATORVASTATIN 20 MG TAB PO SCH ×2 (21:00→21:01)
[2021-04-08] MEDS: BALSAM PERU/CASTOR OIL 60 GM OINT...G. TP SCH (21:01)
[2021-04-08] MEDS: ONDANSETRON HCL INJ 2MG/ML 2ML 2 MG/ML VIAL IV PRN (23:57)
[2021-04-09] VITALS (8 sets, daily range): BP systolic 109–182; BP diastolic 54–88
[2021-04-09] MEDS: PIPERACILLIN/TAZOBACTAM 3.375 GM in SODIUM CHLORIDE 0.9% 50ML 50 ML IV SCH ×6 (02:52→21:27)
[2021-04-09] MEDS: HYDRALAZINE HCL 20 MG/ML VIAL IV PRN (05:14)
[2021-04-09] MEDS: FAMOTIDINE 20 MG/2 ML VIAL IV SCH ×2 (05:16→14:43)
[2021-04-09 05:46] LABS: BASOPHILS % 0.4 % (0.0-1.0); EOSINOPHILS # (AUTO) 0.2 (0.0-0.4); EOSINOPHILS % 1.9 % (0.0-6.0); HEMATOCRIT 37.7 % (38.2-49.6); HEMOGLOBIN 11.8 g/dL (14.0-18.0); LYMPHOCYTES # (AUTO) 1.7 (1.0-3.2); LYMPHOCYTES % 17.8 % (18.0-39.1); MEAN CORPUSCULAR HEMOGLOBIN 27.6 pg (28-32); MEAN CORPUSCULAR HGB CONC 31.3 g/dL (31-35); MEAN CORPUSCULAR VOLUME 88.3 fL (81-99); MONOCYTES # (AUTO) 0.8 (0.2-0.8); MONOCYTES % 8.4 % (4.4-11.3); NEUTROPHILS # (AUTO) 6.8 (2.1-6.9); NEUTROPHILS % 70.9 % (38.7-80.0); PLATELET COUNT 411 x10e3/uL (140-360); RED BLOOD COUNT 4.27 x10e6/uL (4.3-5.7); RED CELL DISTRIBUTION WIDTH 14.2 % (11.7-14.4)
[2021-04-09 06:19] LABS: ANION GAP 16.2 mmol/L (8-16); CALCIUM 9.1 mg/dL (8.4-10.2); CREATININE, SERUM 0.77 mg/dL (0.72-1.25); POTASSIUM 3.2 mmol/L (3.5-5.1)
[2021-04-09] MEDS: MORPHINE SULFATE INJ 2 MG/ML SYR IV PRN (06:33)
[2021-04-09] MEDS: ONDANSETRON HCL INJ 2MG/ML 2ML 2 MG/ML VIAL IV PRN (06:33)
[2021-04-09] MEDS: LISINOPRIL 2.5 MG TAB PO SCH (09:00)
[2021-04-09] MEDS: FUROSEMIDE 40 MG TAB PO SCH (09:00)
[2021-04-09] MEDS: FLUOXETINE HCL 20 MG CAP PO SCH (09:00)
[2021-04-09] MEDS: METOPROLOL SUCCINATE 50 MG TAB XL PO SCH (09:00)
[2021-04-09] MEDS: ATORVASTATIN 20 MG TAB PO SCH (21:00)
[2021-04-09] MEDS: BALSAM PERU/CASTOR OIL 60 GM OINT...G. TP SCH (21:27)
[2021-04-09] MEDS: SODIUM CHLORIDE 0.9% 1000ML 1,000 ML IV SCH (21:41)
[2021-04-10] VITALS (8 sets, daily range): BP systolic 113–207; BP diastolic 54–79
[2021-04-10] MEDS: PIPERACILLIN/TAZOBACTAM 3.375 GM in SODIUM CHLORIDE 0.9% 50ML 50 ML IV SCH ×2 (02:22→08:25)
[2021-04-10] MEDS: ONDANSETRON HCL INJ 2MG/ML 2ML 2 MG/ML VIAL IV PRN (04:14)
[2021-04-10] MEDS: MORPHINE SULFATE INJ 2 MG/ML SYR IV PRN ×3 (04:14→17:55)
[2021-04-10 04:56] LABS: BASOPHILS % 0.3 % (0.0-1.0); EOSINOPHILS # (AUTO) 0.1 (0.0-0.4); EOSINOPHILS % 1.3 % (0.0-6.0); HEMATOCRIT 35.6 % (38.2-49.6); HEMOGLOBIN 10.9 g/dL (14.0-18.0); LYMPHOCYTES # (AUTO) 1.6 (1.0-3.2); LYMPHOCYTES % 17.9 % (18.0-39.1); MEAN CORPUSCULAR HEMOGLOBIN 27.7 pg (28-32); MEAN CORPUSCULAR HGB CONC 30.6 g/dL (31-35); MEAN CORPUSCULAR VOLUME 90.6 fL (81-99); MONOCYTES # (AUTO) 0.7 (0.2-0.8); MONOCYTES % 7.3 % (4.4-11.3); NEUTROPHILS # (AUTO) 6.5 (2.1-6.9); NEUTROPHILS % 72.5 % (38.7-80.0); PLATELET COUNT 416 x10e3/uL (140-360); RED BLOOD COUNT 3.93 x10e6/uL (4.3-5.7); RED CELL DISTRIBUTION WIDTH 14.1 % (11.7-14.4)
[2021-04-10 05:17] LABS: ALBUMIN 2.6 g/dL (3.5-5.0); ALBUMIN/GLOBULIN RATIO 0.9 (0.8-2.0); ANION GAP 16.1 mmol/L (8-16); CALCIUM 8.3 mg/dL (8.4-10.2); CREATININE, SERUM 0.79 mg/dL (0.72-1.25); POTASSIUM 3.1 mmol/L (3.5-5.1)
[2021-04-10] MEDS: FAMOTIDINE 20 MG/2 ML VIAL IV SCH ×2 (05:17→16:24)
[2021-04-10] MEDS: FUROSEMIDE 40 MG TAB PO SCH (13:20)
[2021-04-10] MEDS: LISINOPRIL 2.5 MG TAB PO SCH (13:20)
[2021-04-10] MEDS: FLUOXETINE HCL 20 MG CAP PO SCH (13:20)
[2021-04-10] MEDS: METOPROLOL SUCCINATE 50 MG TAB XL PO SCH (13:20)
[2021-04-10] MEDS: SODIUM CHLORIDE 0.9% 1000ML 1,000 ML IV SCH (19:16)
[2021-04-10] MEDS: BALSAM PERU/CASTOR OIL 60 GM OINT...G. TP SCH (20:59)
[2021-04-10] MEDS: ATORVASTATIN 20 MG TAB PO SCH (20:59)
[2021-04-11] VITALS: BP 113/70
[2021-04-11] MEDS: ONDANSETRON HCL INJ 2MG/ML 2ML 2 MG/ML VIAL IV PRN (03:14)
[2021-04-11] MEDS: MORPHINE SULFATE INJ 2 MG/ML SYR IV PRN ×2 (03:14→12:30)
[2021-04-11 04:00] VITALS: BP 113/80
[2021-04-11] MEDS: FAMOTIDINE 20 MG/2 ML VIAL IV SCH (05:45)
[2021-04-11 07:36] VITALS: BP 151/58
[2021-04-11 07:45] VITALS: BP 151/58
[2021-04-11] MEDS ORDERED: APIXABAN 5 MG TABLET PO SCH (09:00)
[2021-04-11] MEDS: FLUOXETINE HCL 20 MG CAP PO SCH (09:10)
[2021-04-11] MEDS: METOPROLOL SUCCINATE 50 MG TAB XL PO SCH (09:10)
[2021-04-11] MEDS: LISINOPRIL 2.5 MG TAB PO SCH (09:10)
[2021-04-11] MEDS: FUROSEMIDE 40 MG TAB PO SCH (09:10)
[2021-04-11 10:38] LABS: BASOPHILS % 0.2 % (0.0-1.0); EOSINOPHILS # (AUTO) 0.1 (0.0-0.4); EOSINOPHILS % 1.2 % (0.0-6.0); HEMATOCRIT 38.5 % (38.2-49.6); LYMPHOCYTES # (AUTO) 1.5 (1.0-3.2); LYMPHOCYTES % 16.1 % (18.0-39.1); MEAN CORPUSCULAR HEMOGLOBIN 27.2 pg (28-32); MEAN CORPUSCULAR HGB CONC 31.2 g/dL (31-35); MEAN CORPUSCULAR VOLUME 87.3 fL (81-99); MONOCYTES # (AUTO) 0.8 (0.2-0.8); MONOCYTES % 7.9 % (4.4-11.3); PLATELET COUNT 430 x10e3/uL (140-360); RED BLOOD COUNT 4.41 x10e6/uL (4.3-5.7); RED CELL DISTRIBUTION WIDTH 13.8 % (11.7-14.4)
[2021-04-11 10:57] LABS: ALBUMIN 2.8 g/dL (3.5-5.0); ALBUMIN/GLOBULIN RATIO 0.9 (0.8-2.0); CALCIUM 8.5 mg/dL (8.4-10.2); CREATININE, SERUM 0.74 mg/dL (0.72-1.25)
[2021-04-11 11:10] LABS: MAGNESIUM 2.2 MG/DL (1.3-2.1)
[2021-04-11] MEDS ORDERED: POTASSIUM CITRATE ER 10 MEQ TAB PEG ONE (11:15)
[2021-04-11 11:24] VITALS: BP 131/67
[2021-04-11] MEDS ORDERED: Collagenase TP (11:24)
[2021-04-11] MEDS ORDERED: ZOFRAN4 MG PEG (11:24)
[2021-04-11] MEDS ORDERED: VENELEX OINTMEN60 GM TP (11:24)
[2021-04-11] MEDS: SODIUM CHLORIDE 0.9% 1000ML 1,000 ML IV SCH (11:30)
[2021-04-11] MEDS ORDERED: KCL 20 MEQ PACKET/ ORAL SOLN PO ONE (12:00)
[2021-04-11 15:53] VITALS: BP 155/70
[2021-04-11] MEDS ORDERED: FAMOTIDINE 20 MG TAB PO SCH (18:30)
[2021-04-12] MEDS ORDERED: COLLAGENASE 5 GM TUBE TP SCH (09:00)
== END 2021-04-11 15:40 | DRG 917 ==
LOC: ER 15:04 → ERHOLD 18:31 → MED/SURG 22:21 → OBSVTOIN 04-03 12:37
PROVIDERS: ADMIT Internal Medicine; ATTEND Internal Medicine
PROC: 02HV33Z Insertion of Infusion Device into Superior Vena Cava, Percutaneous Approach (ICD-10-PCS; 2021-04-04)
PROC: 0DH63UZ Insertion of Feeding Device into Stomach, Percutaneous Approach (ICD-10-PCS; principal; 2021-04-09 14:30)
DX: T40.2X1A Poisoning by other opioids, accidental (unintentional), initial encounter (principal); G92.8 Other toxic encephalopathy; M62.82 Rhabdomyolysis; N39.0 Urinary tract infection, site not specified; F11.13 Opioid abuse with withdrawal; I50.22 Chronic systolic (congestive) heart failure; T82.868A Thrombosis due to vascular prosthetic devices, implants and grafts, initial encounter; I82.621 Acute embolism and thrombosis of deep veins of right upper extremity; Z20.822 Contact with and (suspected) exposure to COVID-19; F14.10 Cocaine abuse, uncomplicated; J44.9 Chronic obstructive pulmonary disease, unspecified; F32.A Depression, unspecified; F41.9 Anxiety disorder, unspecified; K20.90 Esophagitis, unspecified without bleeding; K29.70 Gastritis, unspecified, without bleeding; T42.4X1A Poisoning by benzodiazepines, accidental (unintentional), initial encounter; T40.5X1A Poisoning by cocaine, accidental (unintentional), initial encounter; E87.6 Hypokalemia; J01.00 Acute maxillary sinusitis, unspecified; E83.42 Hypomagnesemia; E78.5 Hyperlipidemia, unspecified; E83.39 Other disorders of phosphorus metabolism; R13.10 Dysphagia, unspecified; L89.150 Pressure ulcer of sacral region, unstageable; L89.222 Pressure ulcer of left hip, stage 2
CPT/HCPCS: 36415; 36569; 43246; 70450; 71045; 74230; 80048; 80053; 80061; 80307; 80320; 80329; 81001; 82140; 82550; 82553; 83036; 83605; 83735; 83880; 84100; 84443; 84484; 85025; 85610; 85730; 87040; 87086; 93005; 93306; 93970; 97139; 99251; 99285; G0378; J0360; J0696; J1650; J2001; J2270; J2310; J2405; J2543; J3430; J3475; J3480; J7030; J7050; U0002